=== PATIENT | female | born 1955 | race African-American/Black ===

== ENCOUNTER 2016-08-19 10:13 | Inpatient (IN) | payer MEDICARE, OTHER ==
[~2016-08-19] VITALS: Ht 167.6 cm; Wt 108.4 kg
[2016-08-19 10:33] LABS: BASO # 0.2 x10^3/uL (0.0-0.2); BASO % 1 % (0-3); EOS % 2 % (0-3); HEMATOCRIT 27.5 % (36.0-47.0); HEMOGLOBIN 8.8 g/dL (12.0-15.5); LYMPH # 2.9 x10^3/uL (1.0-4.8); LYMPH % 21 % (24-48); MEAN CORPUSCULAR HEMOGLOBIN 28 pg (25-35); MEAN CORPUSCULAR HGB CONC 32 g/dL (31-37); MEAN CORPUSCULAR VOLUME 86 fL (79-100); MONO % 12 % (0-9); NEUT % 64 % (31-73); PLATELET COUNT 395 x10^3/uL (140-400); RED BLOOD COUNT 3.21 x10^6/uL (3.50-5.40); RED CELL DISTRIBUTION WIDTH 16.2 % (11.5-14.5); WHITE BLOOD COUNT 13.7 x10^3/uL (4.0-11.0)
[2016-08-19 10:43] LABS: CALCIUM 10.7 mg/dL (8.5-10.1); CREATININE 6.2 mg/dL (0.6-1.0); GFR 6.9; POTASSIUM 4.6 mmol/L (3.5-5.1)
[2016-08-19 10:45] LABS: PROTHROMBIN TIME PATIENT 49.4 SEC (11.7-14.0)
[2016-08-19] MEDS ORDERED: ACETAMINOPHEN 650 MG SUPP.RECT. PR ONE (10:45)
--- NOTE | 2016-08-19 10:48 | RAD ---
Portable chest, 08/19/2016: History: Shortness of breath, chest pain No previous chest radiographs are available at this time for comparison purposes. A right jugular dialysis type catheter extends into the superior vena cava. The heart is enlarged. The pulmonary vascularity is at the upper limits of normal. No pulmonary infiltrate is seen. No definite pleural fluid is identified. Moderate spurring is present in the spine. IMPRESSION: Cardiomegaly with borderline vascular congestion.
[2016-08-19 10:51] LABS: ALBUMIN 1.4 g/dL (3.4-5.0); DIRECT BILIRUBIN 0.2 mg/dL (0.0-0.2); MAGNESIUM 2.3 mg/dL (1.8-2.4); TOTAL BILIRUBIN 0.4 mg/dL (0.2-1.0); TOTAL PROTEIN 6.3 g/dL (6.4-8.2)
[2016-08-19] MEDS ORDERED: IV NORMAL SALINE 500ML BAG 500 ML IV ONE ×2 (11:00→15:15)
[2016-08-19] MEDS ORDERED: ACETAMINOPHEN 500 MG TABLET PO ONE (11:00)
[2016-08-19 11:07] LABS: INR 5.8 (0.8-1.1)
--- NOTE | 2016-08-19 11:07 | PHYS DOC ---
Past Medical History Past Medical History: CHF, COPD, Diabetes-Type II, DVT, GERD, Hypertension, Hepatitis, Renal Failure Additional Past Medical Histor: Hep C; Gout; weakness; lack of coordination Past Surgical History: Other Additional Past Surgical Histo: dialysis fistula left upper arm; unknown sx hx Alcohol Use: None Drug Use: None Adult General Chief Complaint Chief Complaint: ALTERED MENTAL STATUS HPI HPI Patient is a 61 year old female who [facility]. She was noted to be alert and oriented 3 and talkative last night prior to bed. She was checked upon at 6 AM today and noted to have altered mental status. She seemed more sleepy than usual and did not take all of her medications correctly. She did not show improvements in the morning, so they had her sent here. She answers minimal questions, but she does deny chest pain, dyspnea, headache, vision changes, numbness, tingling, weakness. Review of Systems Review of Systems Review of systems otherwise limited due to mental status Current Medications Current Medications Current Medications Medications (Trade) Dose Ordered Sig/César Start Time Stop Time Status Last Admin Dose Admin Acetaminophen (Tylenol) 500 mg 1X ONCE 08/19/16 11:00 08/19/16 11:01 DC 08/19/16 11:00 500 MG Acetaminophen 650 mg 650 mg 1X ONCE 08/19/16 10:45 08/19/16 10:58 DC Sodium Chloride (Iv Sodium Chloride 0.9% 500ml Bag) 500 ml @ 500 mls/hr 1X ONCE 08/19/16 11:00 08/19/16 11:59 DC 08/19/16 11:00 500 MLS/HR Allergies Allergies Allergies Coded Allergies Type Severity Reaction Last Updated Verified erythromycin base Allergy Intermediate 08/19/16 Yes gabapentin Allergy Unknown 08/19/16 Yes morphine Allergy Unknown 08/19/16 Yes Physical Exam Physical Exam Constitutional: Well developed, well nourished, no acute distress, non-toxic appearance. [] HENT: Normocephalic, atraumatic, bilateral external ears normal, oropharynx moist, no oral exudates, nose normal. [] Eyes: PERRLA, EOMI, conjunctiva normal, no discharge. [] Neck: Normal range of motion, no tenderness, supple. [] Cardiovascular:Heart rate regular rhythm [] Lungs & Thorax: Bilateral breath sounds clear to auscultation [] Abdomen: Bowel sounds normal, soft, mild general tenderness, no guarding or rebound. [] Skin: Warm, dry, no erythema, no rash. [] Back: No tenderness, no CVA tenderness. [] Extremities: No tenderness, ROM intact, no edema. [] Neurologic: Alert and oriented to self, moves arms and legs minimally but equally, normal sensory function, no focal deficits noted, has mild left facial droop, otherwise cranial nerves II through XII intact. [] Psychologic: Affect withdrawn, judgement impaired by a mental status, mood irritable. [] Current Patient Data Vital Signs Vital Signs Date Time Temp Pulse Resp B/P Pulse Ox O2 Delivery O2 Flow Rate FiO2 08/19/16 13:07 72 18 98/63 96 Nasal Cannula 2 08/19/16 10:20 100.2 100.2 Lab Values Laboratory Tests Test 08/19/16 10:23 08/19/16 11:41 White Blood Count 13.7x10^3/uL (4.0-11.0) H Red Blood Count 3.21x10^6/uL (3.50-5.40) L Hemoglobin 8.8g/dL (12.0-15.5) L Hematocrit 27.5% (36.0-47.0) L Mean Corpuscular Volume 86fL (79-100) Mean Corpuscular Hemoglobin 28pg (25-35) Mean Corpuscular Hemoglobin Concent 32g/dL (31-37) Red Cell Distribution Width 16.2% (11.5-14.5) H Platelet Count 395x10^3/uL (140-400) Neutrophils (%) (Auto) 64% (31-73) Lymphocytes (%) (Auto) 21% (24-48) L Monocytes (%) (Auto) 12% (0-9) H Eosinophils (%) (Auto) 2% (0-3) Basophils (%) (Auto) 1% (0-3) Neutrophils # (Auto) 8.7x10^3uL (1.8-7.7) H Lymphocytes # (Auto) 2.9x10^3/uL (1.0-4.8) Monocytes # (Auto) 1.6x10^3/uL (0.0-1.1) H Eosinophils # (Auto) 0.3x10^3/uL (0.0-0.7) Basophils # (Auto) 0.2x10^3/uL (0.0-0.2) Prothrombin Time 49.4SEC (11.7-14.0) H Prothrombin Time INR 5.8 (0.8-1.1) *H PTT 75SEC (24-38) H Sodium Level 138mmol/L (136-145) Potassium Level 4.6mmol/L (3.5-5.1) Chloride Level 99mmol/L (98-107) Carbon Dioxide Level 33mmol/L (21-32) H Anion Gap 6 (6-14) Blood Urea Nitrogen 32mg/dL (7-20) H Creatinine 6.2mg/dL (0.6-1.0) H Estimated GFR (Cockcroft-Gault) 6.9 Glucose Level 69mg/dL (70-99) L Lactic Acid Level 0.8mmol/L (0.4-2.0) Calcium Level 10.7mg/dL (8.5-10.1) H Magnesium Level 2.3mg/dL (1.8-2.4) Total Bilirubin 0.4mg/dL (0.2-1.0) Direct Bilirubin 0.2mg/dL (0.0-0.2) Aspartate Amino Transferase (AST) 25U/L (15-37) Alanine Aminotransferase (ALT) 12U/L (14-59) L Alkaline Phosphatase 76U/L (46-116) Ammonia 12mcmol/L (11-34) Creatine Kinase 53U/L (26-192) Troponin I Quantitative 0.056ng/mL (0.000-0.055) MG-Jnj-Q-Type Natriuretic Peptide 16455ye/mL (0-124) H Total Protein 6.3g/dL (6.4-8.2) L Albumin 1.4g/dL (3.4-5.0) L Urine Collection Type Unknown Urine Color Yellow Urine Clarity Clear Urine pH 8.0 Urine Specific [place] 1.015 Urine Protein Tracemg/dL (NEG-TRACE) Urine Glucose (UA) Negativemg/dL (NEG) Urine Ketones (Stick) Negativemg/dL (NEG) Urine Blood Negative (NEG) Urine Nitrite Negative (NEG) Urine Bilirubin Negative (NEG) Urine Urobilinogen Dipstick 0.2mg/dL (0.2 mg/dL) Urine Leukocyte Esterase Trace (NEG) Urine RBC 0/HPF (0-2) Urine WBC 1-4/HPF (0-4) Urine Squamous Epithelial Cells Many/LPF Urine Bacteria 0/HPF (0-FEW) Urine Opiates Screen Neg (NEG) Urine Methadone Screen Neg (NEG) Urine Barbiturates Neg (NEG) Urine Phencyclidine Screen Neg (NEG) Urine Amphetamine/Methamphetamine Neg (NEG) Urine Benzodiazepines Screen Neg (NEG) Urine Cocaine Screen Neg (NEG) Urine Cannabinoids Screen Neg (NEG) Urine Ethyl Alcohol Neg (NEG) Laboratory Tests 08/19/16 10:23 Laboratory Tests 08/19/16 10:23 Microbiology EKG EKG EKG as interpreted by me as normal sinus rhythm, rate 75, no ST-T changes, normal intervals, no ectopy Radiology/Procedures Radiology/Procedures Chest xray as interpreted by me with no acute cardiopulmonary disease process Course & Med Decision Making Course & Med Decision Making Pertinent Labs and Imaging studies reviewed. (See chart for details) She has leukocytosis, she was febrile prehospital 101 but temp is <100.4 here. She has small elevation in troponin with elevation and proBNP in the setting of end-stage renal disease on dialysis. Also has metabolic alkalosis. Also has elevated INR on chronic Coumadin therapy. Her workup is otherwise nonacute. She continues to rest in the bed. Will admit for altered mental status. Discussed case with Dr. Johnson, who agrees to admit and agrees to hold off on antibiotics at this time. Cultures are sent. Renal consult placed, cardiology consult placed and called to [facility], and neurology consult placed. Dragon Disclaimer Dragon Disclaimer This electronic medical record was generated, in whole or in part, using a voice recognition dictation system. Departure Departure Impression: Primary Impression: Altered mental status Additional Impressions: Elevated INR (international normalized ratio) due to prior anticoagulant medication ingestion Elevated troponin ESRD on dialysis Disposition: ADMITTED INPATIENT Condition: STABLE Referrals: KAL LINTON (PCP) Problem Qualifiers Primary Impression: Altered mental status Altered mental status type: coma Coma depth: [place] coma 13-15 Coma timing : in the field (EMT or ambulance) Qualified Code: R40.2411 - [place] coma scale score 13-15, in the field [EMT or ambulance] Abhijit REIS MD Aug 19, 2016 11:07
[2016-08-19] MEDS ORDERED: WARF2TAB7 PO (11:12)
[2016-08-19] MEDS ORDERED: GABA-586 PO (11:12)
[2016-08-19] MEDS ORDERED: SERT100T PO (11:12)
[2016-08-19 11:51] LABS: BILIRUBIN,URINE NEGATIVE (NEG); GLUCOSE,URINE NEGATIVE (NEG); NITRITE,URINE NEGATIVE (NEG); UROBILINOGEN,URINE 0.2 mg/dL (0.2 mg/dL)
[2016-08-19] MEDS ORDERED: CIPR250T PO (11:52)
[2016-08-19 11:57] LABS: BACTERIA,URINE 0 /HPF (0-FEW); PROTEIN,URINE TRACE mg/dL (NEG-TRACE); RBC,URINE 0 /HPF (0-2); SQUAMOUS EPITHELIAL CELL,UR MANY /LPF
--- NOTE | 2016-08-19 11:59 | EKG ---
[facility] [address] [place] [address] Test Date: 2016-08-19 Test Time: 10:38:57 Pat Name: RAZ PFEIFFER Department: Room: Gender: F Data Processing Manager: : [id number] Requested By: Abhijit REIS Order Number: [id number] Reading MD: Ignacio Khan Measurements Intervals [place] Rate: 75 P: 1 [place]: 174 QRS: -26 QRSD: 88 T: -1 QT: 390 QTc: 438 Interpretive Statements SINUS RHYTHM LEFTWARD AXIS POOR R-WAVE PROGRESSION Electronically Signed On 08-19-2016 15:19:02 WELDER HELPER by Ignacio Khan
[2016-08-19 12:05] LABS: BARBITURATES NEG (NEG); BENZODIAZEPINES NEG (NEG); CANNABINOIDS NEG (NEG); COCAINE NEG (NEG); ETHANOL, URINE NEG (NEG); METHADONE NEG (NEG); OPIATES NEG (NEG); PHENCYCLIDINE NEG (NEG)
--- NOTE | 2016-08-19 12:16 | RAD ---
CT of the head without contrast, 08/19/2016: History: Altered mental status The ventricles are within normal limits in size. There is no shift of the midline structures. There is no evidence of acute intracranial hemorrhage or mass effect. IMPRESSION: No acute intracranial abnormality is detected.
--- NOTE | 2016-08-19 13:01 | RAD ---
Exam performed: CT scan of the abdomen and pelvis without contrast. Clinical Indication: Generalized abdominal pain Date of Service: 08/09/16 none available Technique: Contiguous helical acquisitions are obtained through the abdomen and pelvis without IV contrast. Sagittal and coronal reformatted images are obtained and reviewed. CT abdomen and pelvis findings: The lung bases are essentially clear. Cardiomegaly. Lack of IV contrast limits evaluation of abdominal viscera, however the liver, spleen and pancreas are normal. Both adrenal glands and bilateral kidneys are normal in size without hydronephrosis or nephrolithiasis. Aorta is normal in caliber without aneurysm. The small and large bowel loops are nondilated and unremarkable. Scattered stool throughout the colon. Appendix is not clearly visualized, no secondary signs of acute appendicitis noted. There are postoperative changes of hernia repair with hernia repair mesh in the left mid and lower abdomen Distal ureters are nondilated. Urinary bladder is decompressed and thick walled. [Uterus is likely surgically absent. No adnexal masses seen.] No free or focal fluid collections are identified. Diffuse spondylotic changes and multilevel disc degenerative changes are noted. Impression: No acute intra-abdominal or pelvic process detected. PQRS Compliance Statement: One or more of the following individualized dose reduction techniques were utilized for this examination: 1. Automated exposure control 2. Adjustment of the mA and/or kV according to patient size 3. Use of iterative reconstruction technique
[2016-08-19] MEDS ORDERED: IPRA0.2S5 NEB (13:37)
[2016-08-19] MEDS ORDERED: LIDO700A4 TP (13:37)
[2016-08-19] MEDS ORDERED: NORT25CA PO (13:37)
[2016-08-19] MEDS ORDERED: FLUT1DIS3 IH (13:37)
[2016-08-19] MEDS ORDERED: OXYC-250 PO (13:38)
[2016-08-19] MEDS ORDERED: CHOL10003 PO (13:38)
[2016-08-19] MEDS ORDERED: OXYC10TA32 PO (13:39)
[2016-08-19] MEDS ORDERED: POLY119P19 PO (13:39)
[2016-08-19] MEDS ORDERED: SENN8.6T99 PO (13:40)
[2016-08-19] MEDS ORDERED: VENTOLIN HFA18 GM INH (13:40)
[2016-08-19] MEDS ORDERED: VIT1TABL70 PO (13:40)
[2016-08-19] MEDS ORDERED: ALLO100T PO (13:40)
[2016-08-19] MEDS ORDERED: CARV25TA PO (13:41)
[2016-08-19] MEDS ORDERED: ASPI81TA2 PO (13:41)
[2016-08-19] MEDS ORDERED: PhosLo (13:43)
[2016-08-19] MEDS ORDERED: CYCL10TA2 PO (13:44)
[2016-08-19] MEDS ORDERED: BISA10SU55 RC (13:44)
[2016-08-19] MEDS ORDERED: NITR0.4T SL (13:44)
[2016-08-19] MEDS ORDERED: NA P133E2 RC (13:44)
[2016-08-19] MEDS ORDERED: ONDA8TAB12 PO (13:44)
[2016-08-19] MEDS ORDERED: ELBA1TAB PO (13:44)
[2016-08-19] MEDS ORDERED: Mylanta (13:46)
[2016-08-19] MEDS ORDERED: ACET325T9 PO (13:46)
[2016-08-19] MEDS ORDERED: ONDANSETRON PF 4 MG/2 ML VIAL. IV PRN (14:30)
[2016-08-19] MEDS ORDERED: FENTANYL PF 100 MCG/2 ML VIAL. IV PRN (14:30)
[2016-08-19] MEDS ORDERED: ACETAMINOPHEN 325 MG TABLET. PO PRN (14:30)
--- NOTE | 2016-08-19 14:43 | ACF ---
Admission Forms Criteria MENTAL STATUS CHANGE Clinical Indications for Inpatient Care (Place 'X' for any and all applicable criteria): Ongoing inpatient care may be needed for ANY ONE of the following(1)(2)(3)(5)(6) : [X]I. Suspected serious etiology (eg, medical disorder, GREEN MARKETING ANALYST event) of mental status change [ ]II. Danger to self or others not manageable at lower level of care [ ]III. Grave disability (eg, inability to perform self care necessary at lower level of care) [ ]IV. Agitation or inappropriate behavior interfering with care for primary condition (eg, attempting to discontinue lines or drains prematurely, unable to cooperate with respiratory care) [ ]V. Delirium [A] [D][E] as described by ANY ONE of the following(26): [ ]a) Delirium due to alcohol or sedative [F] withdrawal [ ]b) Delirium of uncertain etiology that has not responded to appropriate empiric treatment [ ]c) Delirium that prevents performance of a life-sustaining function (eg, feeding or hydrating oneself) [ ]. General contraindications and/or Inappropriate clinical situations for Observational Care in patients with Mental Status Change, when ANY ONE of the following is required: [ ]a) Prediction of prolongation of LOS based on ANY ONE of the following may be considered as a contraindication for observational care 2, 3, 4, 5, 6, 7, 8, 9, 10, 11 [ ]i) Age > 65 yrs. [ ]ii) Patient arriving by ambulance [ ]iii) Patient with high acuity [ ]iv) Patient requiring vital sign monitoring [ ]v) Patient on IV medication [ ]b) Systolic blood pressures 180mmHg 3,12 [ ]c) Patient with altered mental status including delirium and other alteration of consciousness, (3) [ ]d) Patient whose discharge disposition will be to a [facility] home or rehabilitation home should not be managed in Emergency Department Observation Unit. CMS rule requires 3 days hospital stay before such placement.3,13 [ ]e) Patient with failure to thrive due to broad array of etiologies 3,16,17 [ ]f) Inability to ambulate 3,14 Extended stay beyond goal length of stay for the primary condition may be needed until ALL of the following are present(3)(5): [ ]a) Underlying medical etiology of mental status change is absent, or has been established and adequately treated [ ]b) Danger to self or others is absent or manageable at lower level of care. [ ]c) Behavior crisis management, including physical or chemical restraints, is not required or available at lower level of car [ ]d) Substance or alcohol withdrawal is absent or manageable at lower level of care. [ ]e) Behavioral symptoms (eg, agitation, somnolence, inappropriate behavior) are absent, or are manageable at lower level of care. The original [facility] content created by [facility] has been revised. The portions of the content which have been revised are identified through the use of italic text or in bold, and [facility] has neither reviewed nor approved the modified material. All other unmodified content is copyright [facility]. Please see references footnoted in the original [facility] edition 2016 Admission Criteria Met?: Yes ZEUS NAZARIO Aug 19, 2016 14:43
[2016-08-19 15:00] VITALS: BP 104/60
--- NOTE | 2016-08-19 15:28 | PDOC2 ---
SRINIVASANERICH POLLARD MACHINE PULLER 08/19/16 1528: CARDIAC CONSULT DATE OF CONSULT Date of Consult DATE: 08/19/16 TIME: 15:20 REASON FOR CONSULT Reason for Consult: altered mental status, elevated troponin REFERRING PHYSICIAN Referring Physician: Dr. Jesus Manuel Colindres SOURCE Source: Chart review HISTORY OF PRESENT ILLNESS HISTORY OF PRESENT ILLNESS 61 year old female reportedly transferred from [facility] due to change in mental status. Patient currently can be aroused only by sternal rub, then grunts, opens eyes briefly and again becomes difficult to arouse. No verbal response to questions. No transfer paperwork for review. ER note (which has not yet been completed) reviewed. No acute changes in EKG and initial troponin was 0.05 in the setting of ESRD with a Cr of 6.2. Hypotensive on presentation and dropped to SBP 78. Reason for Visit: elevated troponin PAST MEDICAL HISTORY Cardiovascular: CHF, HTN GI: GERD Heme/Onc: Other (DVT) Hepatobiliary: Hep A/B/C (hep C) Renal/: Chronic renal failure (with HD) Endocrine: Diabetes PAST SURGICAL HISTORY Past Surgical History: Other (AV fistula) FAMILY HISTORY Family History unknown SOCIAL HISTORY Social History unknown Lives: Shelter CURRENT MEDICATIONS CURRENT MEDICATIONS Current Medications Medications (Trade) Dose Ordered Sig/César Route PRN Reason Start Time Stop Time Status Last Admin Dose Admin Sodium Chloride (Iv Sodium Chloride 0.9% 500ml Bag) 500 ml @ 500 mls/hr 1X ONCE IV 08/19/16 11:00 08/19/16 11:59 DC 08/19/16 11:00 Acetaminophen 500 mg 500 mg 1X ONCE PO 08/19/16 11:00 08/19/16 11:01 DC 08/19/16 11:00 Sodium Chloride (Iv Sodium Chloride 0.9% 500ml Bag) 500 ml @ 500 mls/hr 1X ONCE IV 08/19/16 15:15 08/19/16 16:14 08/19/16 11:30 ALLERGIES ALLERGIES: Coded Allergies: erythromycin base (Verified Allergy, Intermediate, 08/19/16) gabapentin (Verified Allergy, Unknown, 08/19/16) morphine (Verified Allergy, Unknown, 08/19/16) ROS Review of System unable to obtain PHYSICAL EXAM General: No acute distress, Other (responsive to sternal rub only) HEENT: Atraumatic Lungs: Clear to auscultation Heart: Normal S1, Normal S2, Other (? S3) Abdomen: Normal bowel sounds, Soft, No tenderness, Other (obese abdomen) Extremities: No edema, Normal pulses Skin: No rashes Neuro: Other (grunting only; did not speak) Psych/Mental Status: Other (poorly responsive) MUSCULOSKELETAL: Osteoarthritic changes both hands VITALS VITALS Vital Signs Date Time Temp Pulse Resp B/P Pulse Ox O2 Delivery O2 Flow Rate FiO2 08/19/16 13:07 72 18 98/63 96 Nasal Cannula 2 08/19/16 10:20 100.2 100.2 LABS Lab: Laboratory Tests Test 08/19/16 10:23 08/19/16 11:41 White Blood Count 13.7x10^3/uL (4.0-11.0) Red Blood Count 3.21x10^6/uL (3.50-5.40) Hemoglobin 8.8g/dL (12.0-15.5) Hematocrit 27.5% (36.0-47.0) Mean Corpuscular Volume 86fL (79-100) Mean Corpuscular Hemoglobin 28pg (25-35) Mean Corpuscular Hemoglobin Concent 32g/dL (31-37) Red Cell Distribution Width 16.2% (11.5-14.5) Platelet Count 395x10^3/uL (140-400) Neutrophils (%) (Auto) 64% (31-73) Lymphocytes (%) (Auto) 21% (24-48) Monocytes (%) (Auto) 12% (0-9) Eosinophils (%) (Auto) 2% (0-3) Basophils (%) (Auto) 1% (0-3) Neutrophils # (Auto) 8.7x10^3uL (1.8-7.7) Lymphocytes # (Auto) 2.9x10^3/uL (1.0-4.8) Monocytes # (Auto) 1.6x10^3/uL (0.0-1.1) Eosinophils # (Auto) 0.3x10^3/uL (0.0-0.7) Basophils # (Auto) 0.2x10^3/uL (0.0-0.2) Prothrombin Time 49.4SEC (11.7-14.0) Prothromb Time International Ratio 5.8 (0.8-1.1) Activated Partial Thromboplast Time 75SEC (24-38) Sodium Level 138mmol/L (136-145) Potassium Level 4.6mmol/L (3.5-5.1) Chloride Level 99mmol/L (98-107) Carbon Dioxide Level 33mmol/L (21-32) Anion Gap 6 (6-14) Blood Urea Nitrogen 32mg/dL (7-20) Creatinine 6.2mg/dL (0.6-1.0) Estimated GFR (Cockcroft-Gault) 6.9 Glucose Level 69mg/dL (70-99) Lactic Acid Level 0.8mmol/L (0.4-2.0) Calcium Level 10.7mg/dL (8.5-10.1) Magnesium Level 2.3mg/dL (1.8-2.4) Total Bilirubin 0.4mg/dL (0.2-1.0) Direct Bilirubin 0.2mg/dL (0.0-0.2) Aspartate Amino Transf (AST/SGOT) 25U/L (15-37) Alanine Aminotransferase (ALT/SGPT) 12U/L (14-59) Alkaline Phosphatase 76U/L (46-116) Ammonia 12mcmol/L (11-34) Creatine Kinase 53U/L (26-192) Troponin I Quantitative 0.056ng/mL (0.000-0.055) GS-Bad-W-Type Natriuretic Peptide 06844ux/mL (0-124) Total Protein 6.3g/dL (6.4-8.2) Albumin 1.4g/dL (3.4-5.0) Urine Collection Type Unknown Urine Color Yellow Urine Clarity Clear Urine pH 8.0 Urine Specific [place] 1.015 Urine Protein Tracemg/dL (NEG-TRACE) Urine Glucose (UA) Negativemg/dL (NEG) Urine Ketones (Stick) Negativemg/dL (NEG) Urine Blood Negative (NEG) Urine Nitrite Negative (NEG) Urine Bilirubin Negative (NEG) Urine Urobilinogen Dipstick 0.2mg/dL (0.2 mg/dL) Urine Leukocyte Esterase Trace (NEG) Urine RBC 0/HPF (0-2) Urine WBC 1-4/HPF (0-4) Urine Squamous Epithelial Cells Many/LPF Urine Bacteria 0/HPF (0-FEW) Urine Opiates Screen Neg (NEG) Urine Methadone Screen Neg (NEG) Urine Barbiturates Neg (NEG) Urine Phencyclidine Screen Neg (NEG) Urine Amphetamine/Methamphetamine Neg (NEG) Urine Benzodiazepines Screen Neg (NEG) Urine Cocaine Screen Neg (NEG) Urine Cannabinoids Screen Neg (NEG) Urine Ethyl Alcohol Neg (NEG) IMAGES IMAGES CXR: No previous chest radiographs are available at this time for comparison purposes. A right jugular dialysis type catheter extends into the superior vena cava. The heart is enlarged. The pulmonary vascularity is at the upper limits of normal. No pulmonary infiltrate is seen. No definite pleural fluid is identified. Moderate spurring is present in the spine. IMPRESSION: Cardiomegaly with borderline vascular congestion. EKG EKG SR without acute changes ASSESSMENT/PLAN ASSESSMENT/PLAN 1. elevated troponin level trivial elevation in the setting of ESRD with Cr of 6.2 continue serial markers echo to evaluate LV function and assess for WMA 2. elevated NT-proBNP in the setting of ESRD with Cr of 6.2 CXR without CHF fluid management per HD/nephrology 3. altered mental status tox screen clean CT head without significant findings 4. ESRD with HD 5. DM, II per primary service 6. supratherapeutic INR of 5.8 ? on warfarin for DVT 7. hepatitis C Nursing to try to obtain further records from [facility] and/or previous facility. Problems: SUBHA GARCIA MD 08/19/16 1703: CARDIAC CONSULT ALLERGIES ALLERGIES: Coded Allergies: erythromycin base (Verified Allergy, Intermediate, 08/19/16) gabapentin (Verified Allergy, Unknown, 08/19/16) morphine (Verified Allergy, Unknown, 08/19/16) ASSESSMENT/PLAN ASSESSMENT/PLAN Patient seen and examined. Agree with above nurse practitioner note. 61-year-old woman presented with mental status changes of unclear etiology. No specific cardiac abdomen amount is noted on examination. Medications reviewed. Labs reviewed. No obvious cardiac pathology noted for her acute mental status change. Continue supportive care. We will obtain an echocardiogram and determine any further assessment as necessary. Problems: ERICH OKEEFE APRN Aug 19, 2016 15:28 SUBHA GARCIA MD Aug 19, 2016 17:03
--- NOTE | 2016-08-19 15:41 | PDOC2 ---
DATE OF CONSULT Date of Consult 08/19/2016 REASON FOR CONSULT Reason for Consult Dialsysis REFERRING PHYSICIAN Referring Provider Dr monet CHIEF COMPLAINT Chief Complaint Problems Medical Problems: (1) Altered mental status Status: Acute (2) Elevated INR (international normalized ratio) due to prior anticoagulant medication ingestion Status: Acute (3) Elevated troponin Status: Acute (4) ESRD on dialysis Status: Acute (5) Mental status change Status: Acute SOURCE Source chart HPI HPI as dictated CURRENT MEDICATIONS Current Meds Current Medications Medications (Trade) Dose Ordered Sig/César Route PRN Reason Start Time Stop Time Status Last Admin Dose Admin Sodium Chloride (Iv Sodium Chloride 0.9% 500ml Bag) 500 ml @ 500 mls/hr 1X ONCE IV 08/19/16 11:00 08/19/16 11:59 DC 08/19/16 11:00 Acetaminophen 500 mg 500 mg 1X ONCE PO 08/19/16 11:00 08/19/16 11:01 DC 08/19/16 11:00 Sodium Chloride (Iv Sodium Chloride 0.9% 500ml Bag) 500 ml @ 500 mls/hr 1X ONCE IV 08/19/16 15:15 08/19/16 16:14 08/19/16 11:30 Home Meds reviewed as documented ALLERGIES Allergies: Coded Allergies: erythromycin base (Verified Allergy, Intermediate, 08/19/16) gabapentin (Verified Allergy, Unknown, 08/19/16) morphine (Verified Allergy, Unknown, 08/19/16) ROS ROS unable to arouse adequately to get ROS VITAL SIGNS Vital Signs VS - Last 72 Hours, by Label Date Time Temp Pulse Resp B/P Pulse Ox O2 Delivery O2 Flow Rate FiO2 08/19/16 13:07 72 18 98/63 96 Nasal Cannula 2 08/19/16 12:37 70 18 94/67 96 08/19/16 12:07 70 20 108/69 96 08/19/16 11:37 72 16 94/59 95 08/19/16 11:29 72 16 85/62 95 08/19/16 11:13 71 18 78/56 96 Nasal Cannula 2 08/19/16 11:02 74 20 100/58 95 08/19/16 10:52 74 24 82/49 96 08/19/16 10:37 74 20 84/56 94 Nasal Cannula 2 08/19/16 10:20 100.2 77 18 89/59 91 Room Air 100.2 PHYSICAL EXAM Physical Exam General Appearance: barely Awake not Alert Oriented x 0; lethargic In no Distress Eyes: VIsion Unchanged Conjunctiva Normal EN: No EN Drainage Mucous Memb. dryish Neck: no JVD no JVP Supple no Thyromegaly; short thick neck CVS: S1 S2 soft Murmur No Gallop No Rub no Edema Resp: no Rales no Rhonchi no Acc. Muscle use GI: BAS +ve NO Bruit Non Tender Non Distended : no CVA tenderness; no Suprapubic Tenderness SKIN: no Rashes Breast Exam deferred Mu.Sk: Adequate ROM no Muscle Atrophy Heme: Unable to palpate Obvious LAD no palp Splenomegaly NEURO: no Asterixis; Unable to follow commands Psych: ? Depressed no Active hallucination ASSESSMENT/PLAN Assessment/Plan ESRD.HD later today; will reval on HD Fevers - Bl Cx done, One set from HD Cath Anemia: Epogen Transfuse with next HD as needed. Hypo TN: suspect sepsis asso with HD Cath unless other sources can be identified Sev. Hypoalbuminemia - check for Proteinruia AMS - Doubt Uremic, check FSBS, Neuro consulted, ? opoid related, ? due to ^ David Relative Hypercalcemia - Miacalcin as ordered Discussed Plan of Care at length with cardiology WORKERS' COMPENSATION MAGISTRATE LABS Labs: Laboratory Tests Test 08/19/16 10:23 08/19/16 11:41 White Blood Count 13.7x10^3/uL (4.0-11.0) Red Blood Count 3.21x10^6/uL (3.50-5.40) Hemoglobin 8.8g/dL (12.0-15.5) Hematocrit 27.5% (36.0-47.0) Mean Corpuscular Volume 86fL (79-100) Mean Corpuscular Hemoglobin 28pg (25-35) Mean Corpuscular Hemoglobin Concent 32g/dL (31-37) Red Cell Distribution Width 16.2% (11.5-14.5) Platelet Count 395x10^3/uL (140-400) Neutrophils (%) (Auto) 64% (31-73) Lymphocytes (%) (Auto) 21% (24-48) Monocytes (%) (Auto) 12% (0-9) Eosinophils (%) (Auto) 2% (0-3) Basophils (%) (Auto) 1% (0-3) Neutrophils # (Auto) 8.7x10^3uL (1.8-7.7) Lymphocytes # (Auto) 2.9x10^3/uL (1.0-4.8) Monocytes # (Auto) 1.6x10^3/uL (0.0-1.1) Eosinophils # (Auto) 0.3x10^3/uL (0.0-0.7) Basophils # (Auto) 0.2x10^3/uL (0.0-0.2) Prothrombin Time 49.4SEC (11.7-14.0) Prothromb Time International Ratio 5.8 (0.8-1.1) Activated Partial Thromboplast Time 75SEC (24-38) Sodium Level 138mmol/L (136-145) Chloride Level 99mmol/L (98-107) Carbon Dioxide Level 33mmol/L (21-32) Anion Gap 6 (6-14) Blood Urea Nitrogen 32mg/dL (7-20) Estimated GFR (Cockcroft-Gault) 6.9 Glucose Level 69mg/dL (70-99) Lactic Acid Level 0.8mmol/L (0.4-2.0) Calcium Level 10.7mg/dL (8.5-10.1) Total Bilirubin 0.4mg/dL (0.2-1.0) Direct Bilirubin 0.2mg/dL (0.0-0.2) Aspartate Amino Transf (AST/SGOT) 25U/L (15-37) Alkaline Phosphatase 76U/L (46-116) Ammonia 12mcmol/L (11-34) Creatine Kinase 53U/L (26-192) Troponin I Quantitative 0.056ng/mL (0.000-0.055) Total Protein 6.3g/dL (6.4-8.2) Albumin 1.4g/dL (3.4-5.0) Urine Collection Type Unknown Urine Color Yellow Urine Clarity Clear Urine pH 8.0 Urine Specific [place] 1.015 Urine Protein Tracemg/dL (NEG-TRACE) Urine Glucose (UA) Negativemg/dL (NEG) Urine Ketones (Stick) Negativemg/dL (NEG) Urine Blood Negative (NEG) Urine Nitrite Negative (NEG) Urine Bilirubin Negative (NEG) Urine Urobilinogen Dipstick 0.2mg/dL (0.2 mg/dL) Urine Leukocyte Esterase Trace (NEG) Urine RBC 0/HPF (0-2) Urine WBC 1-4/HPF (0-4) Urine Squamous Epithelial Cells Many/LPF Urine Bacteria 0/HPF (0-FEW) Urine Opiates Screen Neg (NEG) Urine Methadone Screen Neg (NEG) Urine Barbiturates Neg (NEG) Urine Phencyclidine Screen Neg (NEG) Urine Amphetamine/Methamphetamine Neg (NEG) Urine Benzodiazepines Screen Neg (NEG) Urine Cocaine Screen Neg (NEG) Urine Cannabinoids Screen Neg (NEG) Urine Ethyl Alcohol Neg (NEG) HERMELINDA MCINTYRE MD Aug 19, 2016 15:41
[2016-08-19] MEDS ORDERED: MAGNESIUM SULFATE 2GM 50 ML IV PRN (15:45)
--- NOTE | 2016-08-19 15:55 | PDOC ---
Dialysis Progress Note Dialysis Note Dialysis Note Seen on Hemodialysis, tolerating treatment OK so far Vitals at beginning of Hemodialysis: 93/559 69 - getting 500cc NS BOlus General Appearance: Not Awake: not Alert Oriented x 0 Neck: No JVD or JVP Chest: CTA Donny Heart: S1 S2 Abdomen - Soft NTND Extremities - No Edema ESRD: Dialysis as below F 180 NR 3.0 Hrs 3 K 2.5 Ca 140 Na 35 HC03 Qb 350 + Qd 500+ Heparin 0 Units Uf 0 Kgs or to dry weight as tolerated (May leave 1Kg +ve on Fluids and 50gms of ALbumin) May give 25-50 gms of 25% Albumin if needed to maintain Hemodynamic stability Treatment plan reviewed and discussed with doll wigs hackler Vitals Vital Signs Vital Signs Date Time Temp Pulse Resp B/P Pulse Ox O2 Delivery O2 Flow Rate FiO2 08/19/16 13:07 72 18 98/63 96 Nasal Cannula 2 08/19/16 10:20 100.2 100.2 Labs Last Labs Laboratory Tests Test 08/19/16 10:23 08/19/16 11:41 08/19/16 15:41 White Blood Count 13.7x10^3/uL (4.0-11.0) Red Blood Count 3.21x10^6/uL (3.50-5.40) Hemoglobin 8.8g/dL (12.0-15.5) Hematocrit 27.5% (36.0-47.0) Mean Corpuscular Volume 86fL (79-100) Mean Corpuscular Hemoglobin 28pg (25-35) Mean Corpuscular Hemoglobin Concent 32g/dL (31-37) Red Cell Distribution Width 16.2% (11.5-14.5) Platelet Count 395x10^3/uL (140-400) Neutrophils (%) (Auto) 64% (31-73) Lymphocytes (%) (Auto) 21% (24-48) Monocytes (%) (Auto) 12% (0-9) Eosinophils (%) (Auto) 2% (0-3) Basophils (%) (Auto) 1% (0-3) Neutrophils # (Auto) 8.7x10^3uL (1.8-7.7) Lymphocytes # (Auto) 2.9x10^3/uL (1.0-4.8) Monocytes # (Auto) 1.6x10^3/uL (0.0-1.1) Eosinophils # (Auto) 0.3x10^3/uL (0.0-0.7) Basophils # (Auto) 0.2x10^3/uL (0.0-0.2) Prothrombin Time 49.4SEC (11.7-14.0) Prothromb Time International Ratio 5.8 (0.8-1.1) Activated Partial Thromboplast Time 75SEC (24-38) Sodium Level 138mmol/L (136-145) Potassium Level 4.6mmol/L (3.5-5.1) Chloride Level 99mmol/L (98-107) Carbon Dioxide Level 33mmol/L (21-32) Anion Gap 6 (6-14) Blood Urea Nitrogen 32mg/dL (7-20) Creatinine 6.2mg/dL (0.6-1.0) Estimated GFR (Cockcroft-Gault) 6.9 Glucose Level 69mg/dL (70-99) Lactic Acid Level 0.8mmol/L (0.4-2.0) Calcium Level 10.7mg/dL (8.5-10.1) Magnesium Level 2.3mg/dL (1.8-2.4) Total Bilirubin 0.4mg/dL (0.2-1.0) Direct Bilirubin 0.2mg/dL (0.0-0.2) Aspartate Amino Transf (AST/SGOT) 25U/L (15-37) Alanine Aminotransferase (ALT/SGPT) 12U/L (14-59) Alkaline Phosphatase 76U/L (46-116) Ammonia 12mcmol/L (11-34) Creatine Kinase 53U/L (26-192) Troponin I Quantitative 0.056ng/mL (0.000-0.055) VE-Six-G-Type Natriuretic Peptide 94096ys/mL (0-124) Total Protein 6.3g/dL (6.4-8.2) Albumin 1.4g/dL (3.4-5.0) Urine Collection Type Unknown Urine Color Yellow Urine Clarity Clear Urine pH 8.0 Urine Specific [place] 1.015 Urine Protein Tracemg/dL (NEG-TRACE) Urine Glucose (UA) Negativemg/dL (NEG) Urine Ketones (Stick) Negativemg/dL (NEG) Urine Blood Negative (NEG) Urine Nitrite Negative (NEG) Urine Bilirubin Negative (NEG) Urine Urobilinogen Dipstick 0.2mg/dL (0.2 mg/dL) Urine Leukocyte Esterase Trace (NEG) Urine RBC 0/HPF (0-2) Urine WBC 1-4/HPF (0-4) Urine Squamous Epithelial Cells Many/LPF Urine Bacteria 0/HPF (0-FEW) Urine Opiates Screen Neg (NEG) Urine Methadone Screen Neg (NEG) Urine Barbiturates Neg (NEG) Urine Phencyclidine Screen Neg (NEG) Urine Amphetamine/Methamphetamine Neg (NEG) Urine Benzodiazepines Screen Neg (NEG) Urine Cocaine Screen Neg (NEG) Urine Cannabinoids Screen Neg (NEG) Urine Ethyl Alcohol Neg (NEG) Glucose (Fingerstick) 71mg/dL (70-99) Laboratory Tests Test 08/19/16 10:23 08/19/16 11:41 08/19/16 15:41 White Blood Count 13.7x10^3/uL (4.0-11.0) Red Blood Count 3.21x10^6/uL (3.50-5.40) Hemoglobin 8.8g/dL (12.0-15.5) Hematocrit 27.5% (36.0-47.0) Mean Corpuscular Volume 86fL (79-100) Mean Corpuscular Hemoglobin 28pg (25-35) Mean Corpuscular Hemoglobin Concent 32g/dL (31-37) Red Cell Distribution Width 16.2% (11.5-14.5) Platelet Count 395x10^3/uL (140-400) Neutrophils (%) (Auto) 64% (31-73) Lymphocytes (%) (Auto) 21% (24-48) Monocytes (%) (Auto) 12% (0-9) Eosinophils (%) (Auto) 2% (0-3) Basophils (%) (Auto) 1% (0-3) Neutrophils # (Auto) 8.7x10^3uL (1.8-7.7) Lymphocytes # (Auto) 2.9x10^3/uL (1.0-4.8) Monocytes # (Auto) 1.6x10^3/uL (0.0-1.1) Eosinophils # (Auto) 0.3x10^3/uL (0.0-0.7) Basophils # (Auto) 0.2x10^3/uL (0.0-0.2) Prothrombin Time 49.4SEC (11.7-14.0) Prothromb Time International Ratio 5.8 (0.8-1.1) Activated Partial Thromboplast Time 75SEC (24-38) Sodium Level 138mmol/L (136-145) Potassium Level 4.6mmol/L (3.5-5.1) Chloride Level 99mmol/L (98-107) Carbon Dioxide Level 33mmol/L (21-32) Anion Gap 6 (6-14) Blood Urea Nitrogen 32mg/dL (7-20) Creatinine 6.2mg/dL (0.6-1.0) Estimated GFR (Cockcroft-Gault) 6.9 Glucose Level 69mg/dL (70-99) Lactic Acid Level 0.8mmol/L (0.4-2.0) Calcium Level 10.7mg/dL (8.5-10.1) Magnesium Level 2.3mg/dL (1.8-2.4) Total Bilirubin 0.4mg/dL (0.2-1.0) Direct Bilirubin 0.2mg/dL (0.0-0.2) Aspartate Amino Transf (AST/SGOT) 25U/L (15-37) Alanine Aminotransferase (ALT/SGPT) 12U/L (14-59) Alkaline Phosphatase 76U/L (46-116) Ammonia 12mcmol/L (11-34) Creatine Kinase 53U/L (26-192) Troponin I Quantitative 0.056ng/mL (0.000-0.055) ZV-Hzm-L-Type Natriuretic Peptide 62664me/mL (0-124) Total Protein 6.3g/dL (6.4-8.2) Albumin 1.4g/dL (3.4-5.0) Urine Collection Type Unknown Urine Color Yellow Urine Clarity Clear Urine pH 8.0 Urine Specific [place] 1.015 Urine Protein Tracemg/dL (NEG-TRACE) Urine Glucose (UA) Negativemg/dL (NEG) Urine Ketones (Stick) Negativemg/dL (NEG) Urine Blood Negative (NEG) Urine Nitrite Negative (NEG) Urine Bilirubin Negative (NEG) Urine Urobilinogen Dipstick 0.2mg/dL (0.2 mg/dL) Urine Leukocyte Esterase Trace (NEG) Urine RBC 0/HPF (0-2) Urine WBC 1-4/HPF (0-4) Urine Squamous Epithelial Cells Many/LPF Urine Bacteria 0/HPF (0-FEW) Urine Opiates Screen Neg (NEG) Urine Methadone Screen Neg (NEG) Urine Barbiturates Neg (NEG) Urine Phencyclidine Screen Neg (NEG) Urine Amphetamine/Methamphetamine Neg (NEG) Urine Benzodiazepines Screen Neg (NEG) Urine Cocaine Screen Neg (NEG) Urine Cannabinoids Screen Neg (NEG) Urine Ethyl Alcohol Neg (NEG) Glucose (Fingerstick) 71mg/dL (70-99) Assessment Assessment Problems Medical Problems: (1) Altered mental status Status: Acute (2) Elevated INR (international normalized ratio) due to prior anticoagulant medication ingestion Status: Acute (3) Elevated troponin Status: Acute (4) ESRD on dialysis Status: Acute (5) Mental status change Status: Acute Problems: Plan Plan of Care Problems Medical Problems: (1) Altered mental status Status: Acute (2) Elevated INR (international normalized ratio) due to prior anticoagulant medication ingestion Status: Acute (3) Elevated troponin Status: Acute (4) ESRD on dialysis Status: Acute (5) Mental status change Status: Acute HERMELINDA MCINTYRE MD Aug 19, 2016 15:55
[2016-08-19] MEDS ORDERED: IV NORMAL SALINE 1000ML BAG 1,000 ML IV PRN ×2 (16:29)
[2016-08-19] MEDS ORDERED: VANCOMYCIN 2 GM in IV NORMAL SALINE 500ML BAG 500 ML IV ONE (16:30)
[2016-08-19] MEDS ORDERED: DIALYSIS PATIENT. MC PRN ×2 (16:30)
[2016-08-19] MEDS: ALBUMIN HUMAN 25% 100 ML IV PRN ×2 (16:52→17:26)
--- NOTE | 2016-08-19 18:26 | PDOC2 ---
NEUROLOGY CONSULT Date of Admission Date of Admission DATE: 08/19/16 TIME: 18:17 Reason for Consult Reason for Consult: IMPRESSION: MS changes. Metabolic encephalopathy. ESRD on dialysis. DM HTN CHF Cardiomegaly COPD GERD HCV Gout Morbid obesity. RECOMMENDATIONS/PLAN: EEG Repeat HCT on 08/20 Lab: see orders. Treat medical diseases. OT/PT. HISTORY OF THE PRESENT ILLNESS: 61-y-old AA female with above medical diseases has been having MS changes, lethargy, decreased response for admission. No focalized sensory or motor deficits noted. PAST MEDICAL HISTORY: Please see above. PAST SURGERY HISTORY: No major surgery recently. ALLERGY: Erythromycin Neurontin Morphine MEDICATIONS: Refer to [facility] FAMILY HISTORY: Non contributory. SOCIAL HISTORY: Lives in nursing facility. Denies smoking, drinking, and illicit drug use. REVIEW OF SYSTEMS: Constitutional: No malnutrition, weight loss, cachexia. Head: No traumatic brain or head injury. Skin: No edema, or rash. Ear: No infection, tinnitus. Eyes: No vision loss or color blindness. Nose: No bleeding or purulent discharges. Hearing: Mild hearing decrease. Neck: No injury. Breast: No history of cancer, masses,or discharges. Cardiac: CAD, HTN, HLD. Pulmonary: COPD. GI: GERD. Urinary/genital: ESRD on dialysis. Endocrinologic: Diabetes Mellitus, morbid obesity. Skeletomuscular: Generalized weakness. Neurological: see HP. Psychiatric: Denies drug use/abuse. Otherwise, not [id number] review of systems. PHYSICAL EXAMINATION: General appearance is in subacute distress. HEENT: Normocephalic and nontraumatic. Eyes, nose, ears, and throat are unremarkable. Neck is supple. No lymphadenopathy. No crepitus. Cardiovascular: S1, S2, regular rate and rhythm. Pulmonary: Clear to auscultation bilaterally. Abdomen: Bowel sounds are positive. Extremities: No rash, lesions, or edema. No restriction of range of motion NEUROLOGICAL EXAMINATION: Sleepiness but arousable. Not fully oriented to time, place and person. PERRL. EOMI. CN: no focal findings. Muscle tone: within normal. Muscle strength: 4 UE, 4- LE DTR: 1 Plantar reflex: Flexor response bilaterally Gait: not examined in bed. Sensory exam: no abnormal findings. No obvious cerebellar signs elicited. F-T-N test fine. Current Medications Current Medications Current Medications Acetaminophen 650 mg 650 mg 1X ONCE TX ; Start 08/19/16 at 10:45; Stop at 10:58; Status DC Sodium Chloride (Iv Sodium Chloride 0.9% 500ml Bag) 500 ml @ 500 mls/hr 1X ONCE IV Last administered on 08/19/16 11:00; Start 08/19/16 at 11:00; Stop at 11:59; Status DC Acetaminophen (Tylenol) 500 mg 1X ONCE PO Last administered on 08/19/16 11:00 ; Start 08/19/16 at 11:00; Stop 08/19/16 at 11:01; Status DC Ondansetron HCl (Zofran) 4 mg PRN Q8HRS PRN IV NAUSEA/VOMITING; Start 08/19/16 at 14:30; Stop 08/20/16 at 14:29 Fentanyl Citrate (Fentanyl 2ml Vial) 50 mcg PRN Q2HR PRN IV PAIN; Start at 14:30; Stop 08/20/16 at 14:29 Acetaminophen 650 mg 650 mg PRN Q4HRS PRN PO FEVER; Start 08/19/16 at 14:30; Stop 08/20/16 at 14:29 Sodium Chloride (Iv Sodium Chloride 0.9% 500ml Bag) 500 ml @ 500 mls/hr 1X ONCE IV Last administered on 08/19/16 11:30; Start 08/19/16 at 15:15; Stop at 16:14; Status DC Vancomycin HCl 1 each 1 each PRN DAILY PRN MC SEE COMMENTS; Start 08/19/16 at 15:45 Magnesium Sulfate/ Dextrose (Magnesium Sulfate PREMIX 2GM) 50 ml @ 25 mls/hr PRN DAILY PRN IV for Mag < 1.7 on am labs; Start 08/19/16 at 15:45 Darbepoetin Ernst (Aranesp) 60 mcg Mo SQ ; Start 08/19/16 at 21:00 Calcitonin [place] 400 unit 400 unit BID SQ ; Start 08/19/16 at 21:00 Vancomycin HCl 2 gm/Sodium Chloride 500 ml @ 250 mls/hr 1X ONCE IV ; Start at 16:30; Stop 08/19/16 at 18:29 Albumin Human 100 ml @ 100 mls/hr PRN Q30MIN PRN IV SEE COMMENTS Last administered on 08/19/16t 17:26; Start 08/19/16 at 16:30; Stop 08/19/16 at 17:27 ; Status DC Sodium Chloride 1,000 ml @ 1,000 mls/hr Q1H PRN IV hypotension; Start 08/19/16 at 16:29; Stop 08/19/16 at 22:28 Sodium Chloride (Iv Sodium Chloride 0.9% 1000ml Bag) 1,000 ml @ 400 mls/hr Q2H30M PRN IV PATENCY; Start 08/19/16 at 16:29; Stop 08/20/16 at 04:28 Info (PHARMACY MONITORING -- do not chart) 1 each PRN DAILY PRN MC SEE COMMENTS ; Start 08/19/16 at 16:30 Info (PHARMACY MONITORING -- do not chart) 1 each PRN DAILY PRN MC SEE COMMENTS ; Start 08/19/16 at 16:30; Status UNV Active Scripts Active Reported [Mylanta] Tylenol (Acetaminophen) 325 Mg Tablet 1 Tab PO PRN Q4HRS [place] Enema (Na Phos,M-B/Na Phos,Di-Ba) 133 Ml Enema 1 Each RC ONCE Dulcolax (Bisacodyl) 10 Mg Supp.rect 10 Mg RC PRN DAILY PRN Zofran Odt (Ondansetron) 8 Mg Tab.rapdis 1 Tab PO Q8HRS Nitrostat (Nitroglycerin) 0.4 Mg Tab.subl 1 Tab SL UD Cyclobenzaprine Hcl 10 Mg Tablet 1 Tab PO TID Zepatier 50-100 mg Tablet (Elbasvir/Grazoprevir) 1 Each Tablet 1 Each PO [PhosLo] Coreg (Carvedilol) 25 Mg Tablet 1 Tab PO BID Aspirin 81 Mg Tab.chew 1 Tab PO DAILY Allopurinol 100 Mg Tablet 1 Tab PO DAILY Ventolin Hfa Inhaler (Albuterol Sulfate) 18 Gm Hfa.aer.ad 2 Puff INH Q4HRS Nephplex Rx Tablet (Vit B Cmplx No3/Fa/C/Biot/Zinc) 1 Each Tablet 1 Each PO Senokot (Sennosides) 8.6 Mg Tablet 1 Tab PO BID Oxycontin (Oxycodone HCl) 10 Mg Tab.er.12h 10 Mg PO BID Glycolax (Polyethylene Glycol 3350) 119 Gm Powder 17 Gm PO UD Percocet 10-325 Mg Tablet (Oxycodone/Acetaminophen) 1 Each Tablet 1 Tab PO Q4- 6HRS Vitamin D3 (Cholecalciferol (Vitamin D3)) 1,000 Unit Tablet 1 Tab PO DAILY Advair 250-50 Diskus (Fluticasone/Salmeterol) 1 Each Disk.w.dev 1 Puff IH BID Ipratropium [place] 0.2 Mg/1 Ml Solution 1 Vial NEB QID Lidoderm (Lidocaine) 700 Mg Adh..patch 1 Patch TP DAILY Nortriptyline Hcl 25 Mg Capsule 1 Cap PO QHS Ciprofloxacin Hcl 250 Mg Tablet 1 Tab PO BID Warfarin Sodium 2 Mg Tablet 1.5 Mg PO DAILY Gabapentin 300 Mg Capsule 300 Mg PO TID Zoloft (Sertraline Hcl) 100 Mg Tablet 1 Tab PO DAILY Allergies Allergies: Coded Allergies: erythromycin base (Verified Allergy, Intermediate, 08/19/16) gabapentin (Verified Allergy, Unknown, 08/19/16) morphine (Verified Allergy, Unknown, 08/19/16) Vitals VITALS Vital Signs Date Time Temp Pulse Resp B/P Pulse Ox O2 Delivery O2 Flow Rate FiO2 08/19/16 14:37 74 20 101/68 99 Nasal Cannula 2 08/19/16 10:20 100.2 100.2 Labs Labs Laboratory Tests Test 08/19/16 10:23 08/19/16 11:41 08/19/16 15:41 08/19/16 17:53 White Blood Count 13.7x10^3/uL (4.0-11.0) Red Blood Count 3.21x10^6/uL (3.50-5.40) Hemoglobin 8.8g/dL (12.0-15.5) Hematocrit 27.5% (36.0-47.0) Mean Corpuscular Volume 86fL (79-100) Mean Corpuscular Hemoglobin 28pg (25-35) Mean Corpuscular Hemoglobin Concent 32g/dL (31-37) Red Cell Distribution Width 16.2% (11.5-14.5) Platelet Count 395x10^3/uL (140-400) Neutrophils (%) (Auto) 64% (31-73) Lymphocytes (%) (Auto) 21% (24-48) Monocytes (%) (Auto) 12% (0-9) Eosinophils (%) (Auto) 2% (0-3) Basophils (%) (Auto) 1% (0-3) Neutrophils # (Auto) 8.7x10^3uL (1.8-7.7) Lymphocytes # (Auto) 2.9x10^3/uL (1.0-4.8) Monocytes # (Auto) 1.6x10^3/uL (0.0-1.1) Eosinophils # (Auto) 0.3x10^3/uL (0.0-0.7) Basophils # (Auto) 0.2x10^3/uL (0.0-0.2) Prothrombin Time 49.4SEC (11.7-14.0) Prothromb Time International Ratio 5.8 (0.8-1.1) Activated Partial Thromboplast Time 75SEC (24-38) Sodium Level 138mmol/L (136-145) Potassium Level 4.6mmol/L (3.5-5.1) Chloride Level 99mmol/L (98-107) Carbon Dioxide Level 33mmol/L (21-32) Anion Gap 6 (6-14) Blood Urea Nitrogen 32mg/dL (7-20) Creatinine 6.2mg/dL (0.6-1.0) Estimated GFR (Cockcroft-Gault) 6.9 Glucose Level 69mg/dL (70-99) Lactic Acid Level 0.8mmol/L (0.4-2.0) Calcium Level 10.7mg/dL (8.5-10.1) Magnesium Level 2.3mg/dL (1.8-2.4) Total Bilirubin 0.4mg/dL (0.2-1.0) Direct Bilirubin 0.2mg/dL (0.0-0.2) Aspartate Amino Transf (AST/SGOT) 25U/L (15-37) Alanine Aminotransferase (ALT/SGPT) 12U/L (14-59) Alkaline Phosphatase 76U/L (46-116) Ammonia 12mcmol/L (11-34) Creatine Kinase 53U/L (26-192) Troponin I Quantitative 0.056ng/mL (0.000-0.055) HO-Znb-L-Type Natriuretic Peptide 04750mg/mL (0-124) Total Protein 6.3g/dL (6.4-8.2) Albumin 1.4g/dL (3.4-5.0) Thyroid Stimulating Hormone (TSH) 1.402uIU/mL (0.358-3.74) Urine Collection Type Unknown Urine Color Yellow Urine Clarity Clear Urine pH 8.0 Urine Specific [place] 1.015 Urine Protein Tracemg/dL (NEG-TRACE) Urine Glucose (UA) Negativemg/dL (NEG) Urine Ketones (Stick) Negativemg/dL (NEG) Urine Blood Negative (NEG) Urine Nitrite Negative (NEG) Urine Bilirubin Negative (NEG) Urine Urobilinogen Dipstick 0.2mg/dL (0.2 mg/dL) Urine Leukocyte Esterase Trace (NEG) Urine RBC 0/HPF (0-2) Urine WBC 1-4/HPF (0-4) Urine Squamous Epithelial Cells Many/LPF Urine Bacteria 0/HPF (0-FEW) Urine Opiates Screen Neg (NEG) Urine Methadone Screen Neg (NEG) Urine Barbiturates Neg (NEG) Urine Phencyclidine Screen Neg (NEG) Urine Amphetamine/Methamphetamine Neg (NEG) Urine Benzodiazepines Screen Neg (NEG) Urine Cocaine Screen Neg (NEG) Urine Cannabinoids Screen Neg (NEG) Urine Ethyl Alcohol Neg (NEG) Glucose (Fingerstick) 71mg/dL (70-99) 71mg/dL (70-99) Laboratory Tests Test 08/19/16 10:23 08/19/16 11:41 08/19/16 15:41 08/19/16 17:53 White Blood Count 13.7x10^3/uL (4.0-11.0) Red Blood Count 3.21x10^6/uL (3.50-5.40) Hemoglobin 8.8g/dL (12.0-15.5) Hematocrit 27.5% (36.0-47.0) Mean Corpuscular Volume 86fL (79-100) Mean Corpuscular Hemoglobin 28pg (25-35) Mean Corpuscular Hemoglobin Concent 32g/dL (31-37) Red Cell Distribution Width 16.2% (11.5-14.5) Platelet Count 395x10^3/uL (140-400) Neutrophils (%) (Auto) 64% (31-73) Lymphocytes (%) (Auto) 21% (24-48) Monocytes (%) (Auto) 12% (0-9) Eosinophils (%) (Auto) 2% (0-3) Basophils (%) (Auto) 1% (0-3) Neutrophils # (Auto) 8.7x10^3uL (1.8-7.7) Lymphocytes # (Auto) 2.9x10^3/uL (1.0-4.8) Monocytes # (Auto) 1.6x10^3/uL (0.0-1.1) Eosinophils # (Auto) 0.3x10^3/uL (0.0-0.7) Basophils # (Auto) 0.2x10^3/uL (0.0-0.2) Prothrombin Time 49.4SEC (11.7-14.0) Prothromb Time International Ratio 5.8 (0.8-1.1) Activated Partial Thromboplast Time 75SEC (24-38) Sodium Level 138mmol/L (136-145) Potassium Level 4.6mmol/L (3.5-5.1) Chloride Level 99mmol/L (98-107) Carbon Dioxide Level 33mmol/L (21-32) Anion Gap 6 (6-14) Blood Urea Nitrogen 32mg/dL (7-20) Creatinine 6.2mg/dL (0.6-1.0) Estimated GFR (Cockcroft-Gault) 6.9 Glucose Level 69mg/dL (70-99) Lactic Acid Level 0.8mmol/L (0.4-2.0) Calcium Level 10.7mg/dL (8.5-10.1) Magnesium Level 2.3mg/dL (1.8-2.4) Total Bilirubin 0.4mg/dL (0.2-1.0) Direct Bilirubin 0.2mg/dL (0.0-0.2) Aspartate Amino Transf (AST/SGOT) 25U/L (15-37) Alanine Aminotransferase (ALT/SGPT) 12U/L (14-59) Alkaline Phosphatase 76U/L (46-116) Ammonia 12mcmol/L (11-34) Creatine Kinase 53U/L (26-192) Troponin I Quantitative 0.056ng/mL (0.000-0.055) BQ-Dmc-G-Type Natriuretic Peptide 43132pt/mL (0-124) Total Protein 6.3g/dL (6.4-8.2) Albumin 1.4g/dL (3.4-5.0) Thyroid Stimulating Hormone (TSH) 1.402uIU/mL (0.358-3.74) Urine Collection Type Unknown Urine Color Yellow Urine Clarity Clear Urine pH 8.0 Urine Specific [place] 1.015 Urine Protein Tracemg/dL (NEG-TRACE) Urine Glucose (UA) Negativemg/dL (NEG) Urine Ketones (Stick) Negativemg/dL (NEG) Urine Blood Negative (NEG) Urine Nitrite Negative (NEG) Urine Bilirubin Negative (NEG) Urine Urobilinogen Dipstick 0.2mg/dL (0.2 mg/dL) Urine Leukocyte Esterase Trace (NEG) Urine RBC 0/HPF (0-2) Urine WBC 1-4/HPF (0-4) Urine Squamous Epithelial Cells Many/LPF Urine Bacteria 0/HPF (0-FEW) Urine Opiates Screen Neg (NEG) Urine Methadone Screen Neg (NEG) Urine Barbiturates Neg (NEG) Urine Phencyclidine Screen Neg (NEG) Urine Amphetamine/Methamphetamine Neg (NEG) Urine Benzodiazepines Screen Neg (NEG) Urine Cocaine Screen Neg (NEG) Urine Cannabinoids Screen Neg (NEG) Urine Ethyl Alcohol Neg (NEG) Glucose (Fingerstick) 71mg/dL (70-99) 71mg/dL (70-99) TENISHA BLAKELY MD Aug 19, 2016 18:26
[2016-08-19 19:00] VITALS: BP 103/64
--- NOTE | 2016-08-19 19:18 | CONS ---
DATE OF CONSULTATION: PRIMARY PHYSICIAN: Dr. Johnson. REASON FOR CONSULTATION: ESRD dialysis. HISTORY OF PRESENT ILLNESS: The patient is a 61-year-old -[place] female who was transferred to the ER from [facility]. She is noted to have altered mental status at 6 a.m., but however, did not wake up till 9 o'clock and is otherwise noted to be oriented x 2 and talkative. She was found to be more sleepy than usual and did not even take her morning medications like she was supposed to. She dialyzes Friday, Friday and Friday. We were asked to see her for her dialysis needs. She is noted to have a fever of 100.2, blood pressure 98/63, sugar is 69. She is noted to have hepatitis C and is on treatment for the same with an albumin of 1.4, however, her ammonia is only 12. Prior to hospitalization, she was febrile to 101. Hence, I have ordered 1 gram of vancomycin for her. Reportedly, blood cultures were done in the ER. PAST MEDICAL HISTORY: As documented, but not able to be verified with the patient, is significant for CHF, COPD, type 2 diabetes, DVT, GERD, exogenous obesity, hypertension, hepatitis C, ESRD dialysis, gout, dialysis access placements and surgeries. FAMILY HISTORY: Unable to be obtained from the patient at this time. SOCIAL HISTORY: Unable to be obtained, but is not known to use alcohol or drugs based on ER notes, is currently at a [facility]. For rest of the details, please see electronic records. HERMELINDA MCINTYRE MD DR: MARYSOL/leah JOB#: [id number] / [id number]
[2016-08-19] MEDS: VANCOMYCIN PER PHARMACY MC PRN (19:21)
[2016-08-19] MEDS ORDERED: DARBEPOETIN ALFA 60 MCG/0.3 ML DISP.SYRIN. SQ SCH (21:00)
[2016-08-19] MEDS: CALCITONIN,SALMON 400 UNIT/2 ML VIAL. SQ SCH (22:06)
[2016-08-19 23:00] VITALS: BP 105/64
--- NOTE | 2016-08-19 23:14 | HP ---
ADMIT DATE: 08/19/2016 CHIEF COMPLAINT: Increasing confusion. HISTORY OF PRESENT ILLNESS: The patient is a 61-year-old -[place] woman who currently stays at the [facility] for [facility]. She was transferred to the Emergency Room with acute mental status changes and fever. She does have multiple medical issues including end-stage renal disease for which she already received dialysis today. In the Emergency Room, her exam was essentially nonfocal. CT of the head was within normal limits as was her chest x-ray. Only minor findings including WBC of 13 and INR of 5.8 were found and she was admitted for further workup and treatment. PAST MEDICAL HISTORY: CHF, hypertension, hep C, end-stage renal failure, on dialysis, diabetes mellitus. FAMILY HISTORY: Unable to obtain. The patient is not cooperative. SOCIAL HISTORY: Currently in a longterm. No toxic habits per chart. ALLERGIES: ERYTHROMYCIN, GABAPENTIN AND MORPHINE, UNKNOWN REACTION. MEDICATIONS: MAR reconciled with home medications. REVIEW OF SYSTEMS: The patient denies any problems, is unwilling to cooperate with questioning. PHYSICAL EXAMINATION: VITAL SIGNS: Show a blood pressure of 103/64, heart rate of 78, respiratory rate at 18. She is afebrile. GENERAL: This is an obese 61-year-old -[place] woman, awake, alert, clearly confused, in no acute distress. HEENT: Shows no scleral icterus. NECK: Short. LUNGS: Clear to auscultation anteriorly. CARDIOVASCULAR: Regular rate and rhythm. ABDOMEN: Has decreased bowel sounds, but is soft, nontender. EXTREMITIES: Show no edema. SKIN: Warm, soft and dry. LABORATORY DATA: CBC from today shows a WBC of 13.7 with 64% neutrophils, 12% monocytes, hemoglobin of 8.8, MCV of 86 and platelet count of 395. Chemistry is significant for a BUN and creatinine of 32 and 6.2. Electrolytes within normal limits. CO2 is slightly elevated at 33, calcium is 10.7 with an albumin of 1.4. BNP of 32,738, troponin of 0.056. Lactate at 0.8. Urinalysis negative for signs of infection. RADIOGRAPHIC IMAGING: Chest x-ray with cardiomegaly and borderline vascular congestion. CT of the head, no acute intracranial abnormality and abdomen/pelvis CT, no acute intra-abdominal or pelvic process detected. ASSESSMENT AND PLAN: The patient is a 61-year-old -[place] woman transferred from longterm for acute mental status changes. Exam and radiographic imaging essentially nonfocal. She has labs consistent with end-stage renal disease. However, her calcium is significantly elevated considering her very low albumin. Corrected calcium with these levels is 12.8. She is not on oral calcium replacement, but is taking vitamin D. We will give IV fluids cautiously with end-stage renal disease. Calcitonin has been started already. Low dose of bisphosphonates may be indicated as well. Etiology of hypercalcemia is unclear. We will obtain further labs including PTH, etc. Mental status seems to have improved significantly from this morning when she was apparently barely arousable. She is now verbal, although still quite confused. Appreciate Neurology service input. The patient has mildly elevated troponin, which I suspect is chronic in her given end-stage renal disease. Cardiac consult has been obtained by Emergency Room physician. No signs of cardiac compromise at this time. I will continue all home medications. The patient does carry a diagnosis of hepatitis C infection. We will continue monitoring labs there as well. Despite a normal ammonia level, cannot rule out hepatic encephalopathy. The patient has diabetes mellitus. We will continue her home regimen, add insulin sliding scale for monitoring purposes. Blood sugars in house actually have been rather on the low side in the 60s and 70s. The patient does have end-stage renal disease and is on dialysis Friday, Friday and Friday. She did receive dialysis today. Appreciate Dr. Taylor's help with management. SIMA HUITRON MD DR: REMA/nts JOB#: [id number] / [id number] KAYLYNN
[2016-08-20 03:12] LABS: VITAMIN D25(OH)TOTAL 37.4 ng/mL (30.0-100.0)
[2016-08-20 07:00] VITALS: BP 138/86
[2016-08-20 09:17] LABS: ALBUMIN 1.9 g/dL (3.4-5.0); CALCIUM 9.4 mg/dL (8.5-10.1); CREATININE 3.7 mg/dL (0.6-1.0); GFR 15.1; PHOSPHORUS 3.1 mg/dL (2.6-4.7); POTASSIUM 4.2 mmol/L (3.5-5.1)
--- NOTE | 2016-08-20 09:59 | RAD ---
CT of the head without contrast, 08/20/2016: History: Mental status change Comparison is made to a study from 08/19/2016. The ventricles are within normal limits in size. There is no shift of the midline structures. There is no evidence of acute intracranial hemorrhage or mass effect. IMPRESSION: The CT of the head without contrast reveals no acute abnormality.
--- NOTE | 2016-08-20 10:39 | CARD ---
APPROVED REPORT EXAM: Two-dimensional and M-mode echocardiogram with Doppler and color Doppler. Other Information Quality : Good INDICATION Elevated Troponin 2D DIMENSIONS RVDd3.3 (2.9-3.5cm)Left Atrium(2D)4.4 (1.6-4.0cm) IVSd1.6 (0.7-1.1cm)Aortic Root(2D)3.0 (2.0-3.7cm) LVDd5.8 (3.9-5.9cm)LVOT Diameter2.2 (1.8-2.4cm) PWd1.5 (0.7-1.1cm)LVDs3.1 (2.5-4.0cm) FS (%) 30.0 %SV127.2 ml LVEF(%)60.0 (>50%) Aortic Valve AoV Peak Anant.173.8cm/sAoV VTI35.9cm AO Peak GR.12.1mmHgLVOT VTI 20.05cm AO Mean GR.7mmHgAVA (VTI)2.00cm2 AI P 1/2 [id number] Mitral Valve MV E Kmpkvwtn685.3cm/sMV DECEL YICW253hi MV A Scqouxgh567.8cm/sE/A Ratio1.0 TDI Lateral E' P. V9.20cm/sMedial E' P. V8.95cm/s E/Lateral E'13.8E/Medial E'14.2 Tricuspid Valve TR P. Gdvmnybh331hz/sRAP QNTBSZAT95foGp TR Peak Gr.34moQvTBIX37oyGl Pulmonary Vein S1 Yrynykfc28.7cm/sS2 Veyqseop06.62cm/s D2 Vtslmjdh72.6cm/s LEFT VENTRICLE The left ventricle is normal size. There is mild to moderate concentric left ventricular hypertrophy. The left ventricular systolic function is normal and the ejection fraction is within normal range. T he Ejection Fraction is 55-60%. There is normal LV segmental wall motion. Transmitral Doppler flow pa ttern is Grade I-abnormal relaxation pattern. RIGHT VENTRICLE The right ventricle is normal size. The right ventricular systolic function is normal. ATRIA The left atrium is mildly dilated. The right atrium size is normal. The interatrial septum is intact with no evidence for an atrial septal defect or patent foramen ovale as noted on 2-D or Doppler imagi ng. AORTIC VALVE The aortic valve is calcified but opens well. Doppler and Color Flow revealed mild aortic regurgitati on. There is no significant aortic valvular stenosis. MITRAL VALVE The mitral valve is calcified but opens well. There is no evidence of mitral valve prolapse. There is no mitral valve stenosis. Doppler and Color-flow revealed mild mitral regurgitation. TRICUSPID VALVE The tricuspid valve is normal in structure and function. Doppler and Color Flow revealed trace to mil d tricuspid regurgitation. There is moderate pulmonary hypertension. The PA pressure was estimated at 54 mmHg. There is no tricuspid valve stenosis. PULMONIC VALVE Doppler and Color Flow revealed trace to mild pulmonic valvular regurgitation. There is no pulmonic v alvular stenosis. GREAT VESSELS The aortic root is normal in size. The ascending aorta is mildly dilated at 3.5 cm. The IVC is dilate d and collapses <50% with inspiration. PERICARDIAL EFFUSION There is no evidence of significant pericardial effusion. Critical Notification Critical Value: No <Conclusion> The left ventricular systolic function is normal and the ejection fraction is within normal range. Th e Ejection Fraction is 55-60%. There is normal LV segmental wall motion. Doppler and Color Flow revealed mild aortic regurgitation. Doppler and Color Flow revealed trace to mild tricuspid regurgitation. There is moderate pulmonary hy pertension. The PA pressure was estimated at 54 mmHg. The ascending aorta is mildly dilated at 3.5 cm. The IVC is dilated and collapses <50% with inspiration.
[2016-08-20] MEDS ORDERED: VANCOMYCIN 1 GM in IV NORMAL SALINE 250ML 250 ML IV SCH (10:45)
[2016-08-20 11:17] VITALS: BP 133/80
[2016-08-20] MEDS: CALCITONIN,SALMON 400 UNIT/2 ML VIAL. SQ SCH ×2 (11:54→23:30)
[2016-08-20 12:11] LABS: BASO % 0 % (0-3); EOS % 1 % (0-3); HEMATOCRIT 25.6 % (36.0-47.0); HEMOGLOBIN 8.1 g/dL (12.0-15.5); LYMPH # 1.8 x10^3/uL (1.0-4.8); LYMPH % 15 % (24-48); MEAN CORPUSCULAR HEMOGLOBIN 28 pg (25-35); MEAN CORPUSCULAR HGB CONC 32 g/dL (31-37); MEAN CORPUSCULAR VOLUME 87 fL (79-100); MONO % 11 % (0-9); NEUT % 73 % (31-73); PLATELET COUNT 358 x10^3/uL (140-400); RED BLOOD COUNT 2.94 x10^6/uL (3.50-5.40); RED CELL DISTRIBUTION WIDTH 16.7 % (11.5-14.5); WHITE BLOOD COUNT 12.4 x10^3/uL (4.0-11.0)
--- NOTE | 2016-08-20 12:14 | PDOC ---
PROGRESS NOTES Chief Complaint Chief Complaint AMS ASSESSMENT AND PLAN: 1. GPC bacteremia: start vanco. ID consult 2. AMS: waxing and waning MS. metabolic encephalopathy from hyper Ca and infect 3. Hypercalcemia: much improved (jamie Ca 11.1), not normalized yet. cont calcitonin. monitor 4. ESRD: HD on M// 5. Anemia: chronic. ESRD and inflammation induced. on EPO, iron as per nephrology 6. HCV: on antiviral rx at [place] 7. DM: by report. only ISS currently with good FSBG. HgbA1c ordered 8. CAD: no acute issues. minimal troponin elevation 2/2 ESRD. signif elevated pro-BNP at admit, but echo w/o sign of systolic or distolic dysfxn. + pulm HTN 9. OAC: was on coumadin with supratherapeutic INR at admit. unclear what rx is for. will try to obtain pertinent records. 10. Depression: on sertraline Vitals Vitals Vital Signs Date Time Temp Pulse Resp B/P Pulse Ox O2 Delivery O2 Flow Rate FiO2 08/20/16 11:17 98.7 77 18 133/80 91 Nasal Cannula 2.0 98.7 Physical Exam General: No acute distress, Other (somnolent) Heart: Normal S1, Normal S2 Lungs: Clear Abdomen: Normal bowel sounds, Soft, No tenderness, Other (obese abdomen) Extremities: No edema Skin: No rashes Labs LABS Laboratory Tests Test 08/19/16 15:41 08/19/16 17:53 08/19/16 21:30 08/20/16 08:30 Glucose (Fingerstick) 71mg/dL (70-99) 71mg/dL (70-99) 61mg/dL (70-99) Hemoglobin 7.9g/dL (12.0-15.5) Sodium Level 138mmol/L (136-145) Potassium Level 4.2mmol/L (3.5-5.1) Chloride Level 101mmol/L (98-107) Carbon Dioxide Level 29mmol/L (21-32) Anion Gap 8 (6-14) Blood Urea Nitrogen 17mg/dL (7-20) Creatinine 3.7mg/dL (0.6-1.0) Estimated GFR (Cockcroft-Gault) 15.1 Glucose Level 70mg/dL (70-99) Calcium Level 9.4mg/dL (8.5-10.1) Phosphorus Level 3.1mg/dL (2.6-4.7) Magnesium Level 1.9mg/dL (1.8-2.4) Albumin 1.9g/dL (3.4-5.0) Test 08/20/16 08:32 08/20/16 11:31 Glucose (Fingerstick) 67mg/dL (70-99) 68mg/dL (70-99) Review of Systems Review of Systems sleeping, not responding to verbal input SIMA HUIRTON MD Aug 20, 2016 12:14
[2016-08-20] MEDS ORDERED: ACETAMINOPHEN 325 MG TABLET. PO PRN (12:15)
[2016-08-20] MEDS ORDERED: BISACODYL 10 MG SUPP.RECT RC PRN (12:15)
[2016-08-20] MEDS ORDERED: NITROGLYCERIN SUBLINGUAL 0.4 MG BOTTLE OF 25. SL PRN (12:15)
[2016-08-20] MEDS ORDERED: SODIUM PHOSPHATES 19/7GM 133 ML ENEMA. RC PRN (12:15)
[2016-08-20] MEDS ORDERED: ALBUTEROL SULFATE 2.5 MG/3 ML NEBU. NEB SCH (12:30)
[2016-08-20] MEDS ORDERED: ONDANSETRON ODT 4 MG TAB.RAPDIS PO PRN (12:30)
[2016-08-20] MEDS: ALLOPURINOL 100 MG TABLET. PO SCH ×2 (13:00→13:16)
[2016-08-20] MEDS ORDERED: IPRATROPIUM BROMIDE 0.5 MG/2.5 ML NEBU. NEB SCH (13:00)
[2016-08-20] MEDS: ASPIRIN 81 MG TAB.CHEW PO SCH ×2 (13:00→13:16)
[2016-08-20] MEDS: SERTRALINE 50 MG TABLET. PO SCH ×2 (13:00→13:16)
[2016-08-20] MEDS: POLYETHYLENE GLYCOL 3350 17 GM PACKET. PO SCH (13:00)
--- NOTE | 2016-08-20 13:03 | PDOC ---
SUBJECTIVE ROS ESRD Remains drowsy and somewhat encephalopahtic unable to get ROS OBJECTIVE Vital Signs Vital Signs Date Time Temp Pulse Resp B/P Pulse Ox O2 Delivery O2 Flow Rate FiO2 08/20/16 11:17 98.7 77 18 133/80 91 Nasal Cannula 2.0 98.7 I & 0 Intake and Output 08/20/16 07:00 Intake Total 1500 ml Output Total 0 ml Balance 1500 ml Intake Oral 0 ml IV Total 1500 ml Output Urine Total 0 ml # Voids 1 PHYSICAL EXAM Physical Exam General Appearance: barely Awake not Alert Oriented x 0; lethargic In no Distress Eyes: VIsion Unchanged Conjunctiva Normal EN: No EN Drainage Mucous Memb. dryish Neck: no JVD no JVP Supple no Thyromegaly; short thick neck CVS: S1 S2 soft Murmur No Gallop No Rub no Edema Resp: no Rales no Rhonchi no Acc. Muscle use GI: BAS +ve NO Bruit Non Tender Non Distended : no CVA tenderness; no Suprapubic Tenderness SKIN: no Rashes Breast Exam deferred Mu.Sk: Adequate ROM no Muscle Atrophy Heme: Unable to palpate Obvious LAD no palp Splenomegaly NEURO: no Asterixis; Unable to follow commands Psych: ? Depressed no Active hallucination ASSESSMENT/PLAN Assessment/Plan ESRD: no emergent indication for HD Currently. doubt that AMS is Uremic. Fevers - (currently resolved) Bl Cx with GPC, One set from HD Cath done yest too. ID Consulted Anemia: Epogen Transfuse with next HD as needed. Hypo TN: (better currently) suspect sepsis asso with HD Cath unless other sources can be identified Sev. Hypoalbuminemia - check for Proteinruia; TF vs TPN ? AMS - Now suspect asso with GPC Bacteremia: Doubt Uremic, check FSBS, Neuro consulted, ? opoid related, ? due to ^ David Relative Hypercalcemia - Miacalcin as ordered SIRS - ? Cath based infection. 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 DATA Meds Current Medications Medications (Trade) Dose Ordered Sig/César Start Time Stop Time Status Last Admin Dose Admin Acetaminophen (Tylenol) 325 mg PRN Q4HRS PRN 08/20/16 12:15 Acetaminophen 650 mg 650 mg PRN Q4HRS PRN 08/19/16 14:30 08/20/16 14:29 Albumin Human 100 ml @ 100 mls/hr PRN Q30MIN PRN 08/19/16 16:30 08/19/16 17:27 DC 08/19/16 17:26 100 MLS/HR Albuterol Sulfate (Ventolin Neb Soln) 2.5 mg Q4HRS 08/20/16 12:30 Allopurinol (Zyloprim) 100 mg DAILY 08/20/16 13:00 Aspirin (Children'S Aspirin) 81 mg DAILY 08/20/16 13:00 Bisacodyl (Dulcolax Supp) 10 mg PRN DAILY PRN 08/20/16 12:15 Budesonide (Pulmicort) 0.5 mg RTBID 08/20/16 20:00 Calcitonin [place] 400 unit 400 unit BID 08/19/16 21:00 08/19/16 22:06 400 UNIT Carvedilol (Coreg) 25 mg BIDWMEALS 08/20/16 17:00 Darbepoetin Ernst (Aranesp) 60 mcg Mo 08/19/16 21:00 08/19/16 22:06 60 MCG Fentanyl Citrate (Fentanyl 2ml Vial) 50 mcg PRN Q2HR PRN 08/19/16 14:30 08/20/16 14:29 Gabapentin (Neurontin) 300 mg TID 08/20/16 14:00 Info (PHARMACY MONITORING -- do not chart) 1 each PRN DAILY PRN 08/19/16 16:30 UNV Ipratropium [place] (Atrovent) 0.2 mg QID 08/20/16 13:00 Lidocaine (Lidoderm) 1 patch DAILY 08/20/16 13:00 Magnesium Sulfate/ Dextrose (Magnesium Sulfate PREMIX 2GM) 50 ml @ 25 mls/hr PRN DAILY PRN 08/19/16 15:45 Nitroglycerin (Nitrostat) 0.4 mg PRN DAILY PRN 08/20/16 12:15 Nortriptyline HCl (Pamelor) 25 mg QHS 08/20/16 21:00 Ondansetron HCl (Zofran Odt) 8 mg PRN Q8HRS PRN 08/20/16 12:30 Ondansetron HCl (Zofran) 4 mg PRN Q8HRS PRN 08/19/16 14:30 08/20/16 14:29 Oxycodone HCl (Oxycontin) 10 mg BID 08/20/16 21:00 Oxycodone/ Acetaminophen (Percocet 10/325) 1 tab PRN Q6HRS PRN 08/20/16 12:15 Polyethylene Glycol (miraLAX PACKET) 17 gm DAILY 08/20/16 13:00 Sennosides (Senna) 8.6 mg BID 08/20/16 21:00 Sertraline HCl (Zoloft) 100 mg DAILY 08/20/16 13:00 Sodium Biphosphate/ Sodium Phosphate (Fleet Adult) 133 ml PRN DAILY PRN 08/20/16 12:15 Sodium Chloride (Iv Sodium Chloride 0.9% 500ml Bag) 500 ml @ 500 mls/hr 1X ONCE 08/19/16 11:00 08/19/16 11:59 DC 08/19/16 11:00 500 MLS/HR Sodium Chloride (Iv Sodium Chloride 0.9% 1000ml Bag) 1,000 ml @ 400 mls/hr Q2H30M PRN 08/19/16 16:29 08/20/16 04:28 DC Vancomycin HCl 1 each 1 each 1X ONCE 08/21/16 05:00 08/21/16 05:01 Vancomycin HCl 2 gm/Sodium Chloride 500 ml @ 250 mls/hr 1X ONCE 08/19/16 16:30 08/19/16 18:29 DC 08/19/16 22:02 250 MLS/HR Vancomycin HCl/ Sodium Chloride (Iv Sodium Chloride 0.9% 250ml) 250 ml @ 250 mls/hr Q12H 08/20/16 10:45 UNV Warfarin Sodium (Coumadin Per Physician) 1 each PRN DAILY PRN 08/20/16 12:30 Warfarin Sodium (Coumadin) 1.5 mg DAILY16 08/21/16 16:00 Lab Laboratory Tests Test 08/19/16 15:41 08/19/16 17:53 08/19/16 21:30 08/20/16 08:30 Glucose (Fingerstick) 71mg/dL (70-99) 71mg/dL (70-99) 61mg/dL (70-99) White Blood Count 12.4x10^3/uL (4.0-11.0) Red Blood Count 2.94x10^6/uL (3.50-5.40) Hemoglobin 8.1g/dL (12.0-15.5) Hematocrit 25.6% (36.0-47.0) Mean Corpuscular Volume 87fL (79-100) Mean Corpuscular Hemoglobin 28pg (25-35) Mean Corpuscular Hemoglobin Concent 32g/dL (31-37) Red Cell Distribution Width 16.7% (11.5-14.5) Platelet Count 358x10^3/uL (140-400) Neutrophils (%) (Auto) 73% (31-73) Lymphocytes (%) (Auto) 15% (24-48) Monocytes (%) (Auto) 11% (0-9) Eosinophils (%) (Auto) 1% (0-3) Basophils (%) (Auto) 0% (0-3) Neutrophils # (Auto) 9.0x10^3uL (1.8-7.7) Lymphocytes # (Auto) 1.8x10^3/uL (1.0-4.8) Monocytes # (Auto) 1.4x10^3/uL (0.0-1.1) Eosinophils # (Auto) 0.2x10^3/uL (0.0-0.7) Basophils # (Auto) 0.0x10^3/uL (0.0-0.2) Sodium Level 138mmol/L (136-145) Potassium Level 4.2mmol/L (3.5-5.1) Chloride Level 101mmol/L (98-107) Carbon Dioxide Level 29mmol/L (21-32) Anion Gap 8 (6-14) Blood Urea Nitrogen 17mg/dL (7-20) Creatinine 3.7mg/dL (0.6-1.0) Estimated GFR (Cockcroft-Gault) 15.1 Glucose Level 70mg/dL (70-99) Calcium Level 9.4mg/dL (8.5-10.1) Phosphorus Level 3.1mg/dL (2.6-4.7) Magnesium Level 1.9mg/dL (1.8-2.4) Troponin I Quantitative 0.041ng/mL (0.000-0.055) Albumin 1.9g/dL (3.4-5.0) Test 08/20/16 08:32 08/20/16 11:31 Glucose (Fingerstick) 67mg/dL (70-99) 68mg/dL (70-99) HERMELINDA MCINTYRE MD Aug 20, 2016 13:03
[2016-08-20] MEDS: GABAPENTIN 300 MG CAPSULE. PO SCH ×3 (13:16→21:00)
[2016-08-20] MEDS: LIDOCAINE (700MG/PATCH) PATCH. TP SCH (13:17)
[2016-08-20] MEDS: VANCOMYCIN PER PHARMACY MC PRN (13:28)
[2016-08-20] MEDS ORDERED: ALBUTEROL SULFATE 2.5 MG/3 ML NEBU. NEB PRN (14:45)
--- NOTE | 2016-08-20 14:46 | EEG ---
DATE OF SERVICE: 08/20/2016 EEG NUMBER: [id number] OBJECTIVE: This is a 61-year-old -[place] female patient with of persistent mental status changes. EEG was requested to evaluate cerebral activity and help rule out subclinical seizures. METHODS: Twenty electrodes were applied according to the international 10-20 electrode placement system. EKG monitoring, hyperventilation, intermittent photic stimulation, monopolar and bipolar montages are routinely utilized. The record was obtained on a digital system with video monitoring. FINDINGS: 1. Background: The patient was recorded in the mildly lethargic state. No clear awake and sleep differentiation. The overall background amplitude is variable. No clear posterior dominant rhythm is observed. The overall background rhythm is with diffuse slowing in theta and delta frequencies throughout the entire recording. 2. Abnormalities: No specific epileptiform discharge or electrographic seizure is seen. Diffuse slowing in theta and delta frequencies is throughout the entire recording. 3. Activation: Hyperventilation was not performed because the patient was unable to perform the technique. Intermittent photic stimulation was performed with insignificant photic driving. IMPRESSION: This EEG is an abnormal study for the mildly lethargic state. No clear posterior dominant rhythm is observed. The overall background rhythm is with diffuse slowing in theta and delta frequencies. No focal, lateralizing, specific epileptiform discharge or electrographic seizure is seen. This pattern of EEG is suggestive of diffuse encephalopathy. TENISHA BLAKELY MD DR: JOSE/leah JOB#: [id number] / [id number] KAYLYNN
[2016-08-20 15:00] VITALS: BP 122/65
[2016-08-20] MEDS: IPRATRPIUM/ALBUTEROL 0.5/2.5MG 3 ML NEBU. NEB SCH ×2 (15:31→20:39)
[2016-08-20] MEDS: OXYCODONE/APAP 10/325 TABLET. PO PRN (15:42)
[2016-08-20] MEDS: CARVEDILOL 12.5 MG TABLET PO SCH (17:23)
[2016-08-20 19:00] VITALS: BP 122/88
[2016-08-20] MEDS: BUDESONIDE 0.5 MG/2 ML NEBU NEB SCH (20:39)
[2016-08-20] MEDS: SENNOSIDES 8.6 MG TABLET PO SCH (21:00)
[2016-08-20] MEDS: OXYCODONE ER 10 MG TAB.ER.12H. PO SCH (21:27)
[2016-08-20] MEDS: NORTRIPTYLINE 25 MG CAPSULE PO SCH (21:27)
[2016-08-20 23:00] VITALS: BP 108/71
[2016-08-21 03:00] VITALS: BP 102/65
[2016-08-21] MEDS ORDERED: VANCOMYCIN RANDOM LEVEL. MC ONE (05:00)
[2016-08-21 05:17] LABS: BASO % 0 % (0-3); EOS % 2 % (0-3); HEMATOCRIT 25.1 % (36.0-47.0); HEMOGLOBIN 7.8 g/dL (12.0-15.5); LYMPH # 1.7 x10^3/uL (1.0-4.8); LYMPH % 15 % (24-48); MEAN CORPUSCULAR HEMOGLOBIN 27 pg (25-35); MEAN CORPUSCULAR HGB CONC 31 g/dL (31-37); MEAN CORPUSCULAR VOLUME 88 fL (79-100); MONO % 13 % (0-9); NEUT % 70 % (31-73); PLATELET COUNT 322 x10^3/uL (140-400); RED BLOOD COUNT 2.85 x10^6/uL (3.50-5.40); RED CELL DISTRIBUTION WIDTH 16.3 % (11.5-14.5); WHITE BLOOD COUNT 11.3 x10^3/uL (4.0-11.0)
[2016-08-21 05:30] LABS: PROTHROMBIN TIME PATIENT 60.8 SEC (11.7-14.0)
[2016-08-21 06:18] LABS: ALBUMIN 1.7 g/dL (3.4-5.0); CALCIUM 9.2 mg/dL (8.5-10.1); CREATININE 4.7 mg/dL (0.6-1.0); GFR 11.5; PHOSPHORUS 3.8 mg/dL (2.6-4.7); POTASSIUM 4.4 mmol/L (3.5-5.1)
[2016-08-21 06:27] LABS: INR 7.6 (0.8-1.1)
[2016-08-21 07:00] VITALS: BP 120/73
[2016-08-21] MEDS: IPRATRPIUM/ALBUTEROL 0.5/2.5MG 3 ML NEBU. NEB SCH ×4 (07:19→19:35)
[2016-08-21] MEDS: BUDESONIDE 0.5 MG/2 ML NEBU NEB SCH (07:19)
[2016-08-21] MEDS ORDERED: PHYTONADIONE 5 MG TABLET PO ONE (08:00)
[2016-08-21] MEDS: CARVEDILOL 12.5 MG TABLET PO SCH ×2 (08:00→16:47)
[2016-08-21] MEDS: LIDOCAINE (700MG/PATCH) PATCH. TP SCH (08:26)
--- NOTE | 2016-08-21 08:43 | PDOC ---
PROGRESS NOTES Chief Complaint Chief Complaint AMS ASSESSMENT AND PLAN: 1. GPC bacteremia with Sepsis: vanco started yesterday. ID consult pending. VS now stable 2. AMS: waxing and waning MS. metabolic encephalopathy from hyper Ca and infect 3. Hypercalcemia: essentially stable (jamie Ca 11.0). cont calcitonin. low dose pamidronate today. labs, incl PTH, SPEP etc pending 4. ESRD: HD on // 5. Anemia: chronic. ESRD and inflammation induced. on EPO, iron as per nephrology 6. HCV: on antiviral rx at [place] 7. DM: by report. only ISS currently with good FSBG. HgbA1c ordered 8. CAD: no acute issues. minimal troponin elevation 2/ ESRD. signif elevated pro-BNP at admit, but echo w/o sign of systolic or diastolic dysfxn. + pulm HTN 9. OAC: was on coumadin with supratherapeutic INR at admit, worsening. reverse with PO vit K. unclear what rx is for. will try to obtain pertinent records. 10. Depression: on sertraline, depressed mood, tearful. low dose ativan PRN 11. Prophylaxis: not indicated with elevated INR Vitals Vitals Vital Signs Date Time Temp Pulse Resp B/P Pulse Ox O2 Delivery O2 Flow Rate FiO2 08/21/16 07:13 97 Nasal Cannula 2.0 08/21/16 07:00 97.9 78 18 120/73 97.9 Physical Exam General: Alert, No acute distress, Other (tearful, initially declining food, meds, HD. agreeable after discussion and involving sister jovana) Heart: Normal S1, Normal S2 Lungs: Clear Abdomen: Normal bowel sounds, Soft, No tenderness, Other (obese abdomen) Extremities: No edema Skin: No rashes Labs LABS Laboratory Tests Test 08/20/16 11:31 08/20/16 16:42 08/20/16 21:12 08/20/16 22:05 Glucose (Fingerstick) 68mg/dL (70-99) 65mg/dL (70-99) 49mg/dL (70-99) 63mg/dL (70-99) Test 08/20/16 22:53 08/21/16 04:40 08/21/16 07:42 Glucose (Fingerstick) 81mg/dL (70-99) 89mg/dL (70-99) White Blood Count 11.3x10^3/uL (4.0-11.0) Red Blood Count 2.85x10^6/uL (3.50-5.40) Hemoglobin 7.8g/dL (12.0-15.5) Hematocrit 25.1% (36.0-47.0) Mean Corpuscular Volume 88fL (79-100) Mean Corpuscular Hemoglobin 27pg (25-35) Mean Corpuscular Hemoglobin Concent 31g/dL (31-37) Red Cell Distribution Width 16.3% (11.5-14.5) Platelet Count 322x10^3/uL (140-400) Neutrophils (%) (Auto) 70% (31-73) Lymphocytes (%) (Auto) 15% (24-48) Monocytes (%) (Auto) 13% (0-9) Eosinophils (%) (Auto) 2% (0-3) Basophils (%) (Auto) 0% (0-3) Neutrophils # (Auto) 7.9x10^3uL (1.8-7.7) Lymphocytes # (Auto) 1.7x10^3/uL (1.0-4.8) Monocytes # (Auto) 1.4x10^3/uL (0.0-1.1) Eosinophils # (Auto) 0.3x10^3/uL (0.0-0.7) Basophils # (Auto) 0.0x10^3/uL (0.0-0.2) Prothrombin Time 60.8SEC (11.7-14.0) Prothromb Time International Ratio 7.6 (0.8-1.1) Sodium Level 135mmol/L (136-145) Potassium Level 4.4mmol/L (3.5-5.1) Chloride Level 100mmol/L (98-107) Carbon Dioxide Level 27mmol/L (21-32) Anion Gap 8 (6-14) Blood Urea Nitrogen 25mg/dL (7-20) Creatinine 4.7mg/dL (0.6-1.0) Estimated GFR (Cockcroft-Gault) 11.5 Glucose Level 78mg/dL (70-99) Calcium Level 9.2mg/dL (8.5-10.1) Phosphorus Level 3.8mg/dL (2.6-4.7) Magnesium Level 2.0mg/dL (1.8-2.4) Albumin 1.7g/dL (3.4-5.0) Random Vancomycin Level 23.6mcg/mL Comment Review of Relevant I have reviewed the following items christi (where applicable) has been applied. Labs Laboratory Tests Test 08/19/16 10:23 08/19/16 11:41 08/19/16 15:41 08/19/16 17:53 White Blood Count 13.7x10^3/uL (4.0-11.0) Red Blood Count 3.21x10^6/uL (3.50-5.40) Hemoglobin 8.8g/dL (12.0-15.5) Hematocrit 27.5% (36.0-47.0) Mean Corpuscular Volume 86fL (79-100) Mean Corpuscular Hemoglobin 28pg (25-35) Mean Corpuscular Hemoglobin Concent 32g/dL (31-37) Red Cell Distribution Width 16.2% (11.5-14.5) Platelet Count 395x10^3/uL (140-400) Neutrophils (%) (Auto) 64% (31-73) Lymphocytes (%) (Auto) 21% (24-48) Monocytes (%) (Auto) 12% (0-9) Eosinophils (%) (Auto) 2% (0-3) Basophils (%) (Auto) 1% (0-3) Neutrophils # (Auto) 8.7x10^3uL (1.8-7.7) Lymphocytes # (Auto) 2.9x10^3/uL (1.0-4.8) Monocytes # (Auto) 1.6x10^3/uL (0.0-1.1) Eosinophils # (Auto) 0.3x10^3/uL (0.0-0.7) Basophils # (Auto) 0.2x10^3/uL (0.0-0.2) Prothrombin Time 49.4SEC (11.7-14.0) Prothromb Time International Ratio 5.8 (0.8-1.1) Activated Partial Thromboplast Time 75SEC (24-38) Sodium Level 138mmol/L (136-145) Potassium Level 4.6mmol/L (3.5-5.1) Chloride Level 99mmol/L (98-107) Carbon Dioxide Level 33mmol/L (21-32) Anion Gap 6 (6-14) Blood Urea Nitrogen 32mg/dL (7-20) Creatinine 6.2mg/dL (0.6-1.0) Estimated GFR (Cockcroft-Gault) 6.9 Glucose Level 69mg/dL (70-99) Lactic Acid Level 0.8mmol/L (0.4-2.0) Calcium Level 10.7mg/dL (8.5-10.1) Magnesium Level 2.3mg/dL (1.8-2.4) Total Bilirubin 0.4mg/dL (0.2-1.0) Direct Bilirubin 0.2mg/dL (0.0-0.2) Aspartate Amino Transf (AST/SGOT) 25U/L (15-37) Alanine Aminotransferase (ALT/SGPT) 12U/L (14-59) Alkaline Phosphatase 76U/L (46-116) Ammonia 12mcmol/L (11-34) Creatine Kinase 53U/L (26-192) Troponin I Quantitative 0.056ng/mL (0.000-0.055) MF-Chg-Y-Type Natriuretic Peptide 22873fc/mL (0-124) Total Protein 6.3g/dL (6.4-8.2) Albumin 1.4g/dL (3.4-5.0) Vitamin B12 Level 1334pg/mL (211-946) 25-Hydroxy Vitamin D Total 37.4ng/mL (30.0-100.0) Thyroid Stimulating Hormone (TSH) 1.402uIU/mL (0.358-3.74) Urine Collection Type Unknown Urine Color Yellow Urine Clarity Clear Urine pH 8.0 Urine Specific [place] 1.015 Urine Protein Tracemg/dL (NEG-TRACE) Urine Glucose (UA) Negativemg/dL (NEG) Urine Ketones (Stick) Negativemg/dL (NEG) Urine Blood Negative (NEG) Urine Nitrite Negative (NEG) Urine Bilirubin Negative (NEG) Urine Urobilinogen Dipstick 0.2mg/dL (0.2 mg/dL) Urine Leukocyte Esterase Trace (NEG) Urine RBC 0/HPF (0-2) Urine WBC 1-4/HPF (0-4) Urine Squamous Epithelial Cells Many/LPF Urine Bacteria 0/HPF (0-FEW) Urine Opiates Screen Neg (NEG) Urine Methadone Screen Neg (NEG) Urine Barbiturates Neg (NEG) Urine Phencyclidine Screen Neg (NEG) Urine Amphetamine/Methamphetamine Neg (NEG) Urine Benzodiazepines Screen Neg (NEG) Urine Cocaine Screen Neg (NEG) Urine Cannabinoids Screen Neg (NEG) Urine Ethyl Alcohol Neg (NEG) Glucose (Fingerstick) 71mg/dL (70-99) 71mg/dL (70-99) Test 08/19/16 21:30 08/20/16 08:30 08/20/16 08:32 08/20/16 11:31 Glucose (Fingerstick) 61mg/dL (70-99) 67mg/dL (70-99) 68mg/dL (70-99) White Blood Count 12.4x10^3/uL (4.0-11.0) Red Blood Count 2.94x10^6/uL (3.50-5.40) Hemoglobin 8.1g/dL (12.0-15.5) Hematocrit 25.6% (36.0-47.0) Mean Corpuscular Volume 87fL (79-100) Mean Corpuscular Hemoglobin 28pg (25-35) Mean Corpuscular Hemoglobin Concent 32g/dL (31-37) Red Cell Distribution Width 16.7% (11.5-14.5) Platelet Count 358x10^3/uL (140-400) Neutrophils (%) (Auto) 73% (31-73) Lymphocytes (%) (Auto) 15% (24-48) Monocytes (%) (Auto) 11% (0-9) Eosinophils (%) (Auto) 1% (0-3) Basophils (%) (Auto) 0% (0-3) Neutrophils # (Auto) 9.0x10^3uL (1.8-7.7) Lymphocytes # (Auto) 1.8x10^3/uL (1.0-4.8) Monocytes # (Auto) 1.4x10^3/uL (0.0-1.1) Eosinophils # (Auto) 0.2x10^3/uL (0.0-0.7) Basophils # (Auto) 0.0x10^3/uL (0.0-0.2) Sodium Level 138mmol/L (136-145) Potassium Level 4.2mmol/L (3.5-5.1) Chloride Level 101mmol/L (98-107) Carbon Dioxide Level 29mmol/L (21-32) Anion Gap 8 (6-14) Blood Urea Nitrogen 17mg/dL (7-20) Creatinine 3.7mg/dL (0.6-1.0) Estimated GFR (Cockcroft-Gault) 15.1 Glucose Level 70mg/dL (70-99) Calcium Level 9.4mg/dL (8.5-10.1) Phosphorus Level 3.1mg/dL (2.6-4.7) Magnesium Level 1.9mg/dL (1.8-2.4) Troponin I Quantitative 0.041ng/mL (0.000-0.055) Albumin 1.9g/dL (3.4-5.0) Test 08/20/16 16:42 08/20/16 21:12 08/20/16 22:05 08/20/16 22:53 Glucose (Fingerstick) 65mg/dL (70-99) 49mg/dL (70-99) 63mg/dL (70-99) 81mg/dL (70-99) Test 08/21/16 04:40 08/21/16 07:42 White Blood Count 11.3x10^3/uL (4.0-11.0) Red Blood Count 2.85x10^6/uL (3.50-5.40) Hemoglobin 7.8g/dL (12.0-15.5) Hematocrit 25.1% (36.0-47.0) Mean Corpuscular Volume 88fL (79-100) Mean Corpuscular Hemoglobin 27pg (25-35) Mean Corpuscular Hemoglobin Concent 31g/dL (31-37) Red Cell Distribution Width 16.3% (11.5-14.5) Platelet Count 322x10^3/uL (140-400) Neutrophils (%) (Auto) 70% (31-73) Lymphocytes (%) (Auto) 15% (24-48) Monocytes (%) (Auto) 13% (0-9) Eosinophils (%) (Auto) 2% (0-3) Basophils (%) (Auto) 0% (0-3) Neutrophils # (Auto) 7.9x10^3uL (1.8-7.7) Lymphocytes # (Auto) 1.7x10^3/uL (1.0-4.8) Monocytes # (Auto) 1.4x10^3/uL (0.0-1.1) Eosinophils # (Auto) 0.3x10^3/uL (0.0-0.7) Basophils # (Auto) 0.0x10^3/uL (0.0-0.2) Prothrombin Time 60.8SEC (11.7-14.0) Prothromb Time International Ratio 7.6 (0.8-1.1) Sodium Level 135mmol/L (136-145) Potassium Level 4.4mmol/L (3.5-5.1) Chloride Level 100mmol/L (98-107) Carbon Dioxide Level 27mmol/L (21-32) Anion Gap 8 (6-14) Blood Urea Nitrogen 25mg/dL (7-20) Creatinine 4.7mg/dL (0.6-1.0) Estimated GFR (Cockcroft-Gault) 11.5 Glucose Level 78mg/dL (70-99) Calcium Level 9.2mg/dL (8.5-10.1) Phosphorus Level 3.8mg/dL (2.6-4.7) Magnesium Level 2.0mg/dL (1.8-2.4) Albumin 1.7g/dL (3.4-5.0) Random Vancomycin Level 23.6mcg/mL Glucose (Fingerstick) 89mg/dL (70-99) Laboratory Tests Test 08/20/16 11:31 08/20/16 16:42 08/20/16 21:12 08/20/16 22:05 Glucose (Fingerstick) 68mg/dL (70-99) 65mg/dL (70-99) 49mg/dL (70-99) 63mg/dL (70-99) Test 08/20/16 22:53 08/21/16 04:40 08/21/16 07:42 Glucose (Fingerstick) 81mg/dL (70-99) 89mg/dL (70-99) White Blood Count 11.3x10^3/uL (4.0-11.0) Red Blood Count 2.85x10^6/uL (3.50-5.40) Hemoglobin 7.8g/dL (12.0-15.5) Hematocrit 25.1% (36.0-47.0) Mean Corpuscular Volume 88fL (79-100) Mean Corpuscular Hemoglobin 27pg (25-35) Mean Corpuscular Hemoglobin Concent 31g/dL (31-37) Red Cell Distribution Width 16.3% (11.5-14.5) Platelet Count 322x10^3/uL (140-400) Neutrophils (%) (Auto) 70% (31-73) Lymphocytes (%) (Auto) 15% (24-48) Monocytes (%) (Auto) 13% (0-9) Eosinophils (%) (Auto) 2% (0-3) Basophils (%) (Auto) 0% (0-3) Neutrophils # (Auto) 7.9x10^3uL (1.8-7.7) Lymphocytes # (Auto) 1.7x10^3/uL (1.0-4.8) Monocytes # (Auto) 1.4x10^3/uL (0.0-1.1) Eosinophils # (Auto) 0.3x10^3/uL (0.0-0.7) Basophils # (Auto) 0.0x10^3/uL (0.0-0.2) Prothrombin Time 60.8SEC (11.7-14.0) Prothromb Time International Ratio 7.6 (0.8-1.1) Sodium Level 135mmol/L (136-145) Potassium Level 4.4mmol/L (3.5-5.1) Chloride Level 100mmol/L (98-107) Carbon Dioxide Level 27mmol/L (21-32) Anion Gap 8 (6-14) Blood Urea Nitrogen 25mg/dL (7-20) Creatinine 4.7mg/dL (0.6-1.0) Estimated GFR (Cockcroft-Gault) 11.5 Glucose Level 78mg/dL (70-99) Calcium Level 9.2mg/dL (8.5-10.1) Phosphorus Level 3.8mg/dL (2.6-4.7) Magnesium Level 2.0mg/dL (1.8-2.4) Albumin 1.7g/dL (3.4-5.0) Random Vancomycin Level 23.6mcg/mL Microbiology 08/19/16 Blood Culture - Preliminary, Resulted NO GROWTH AFTER 1 DAY Medications Current Medications Acetaminophen 650 mg 650 mg 1X ONCE [place] ; Start 08/19/16 at 10:45; Stop at 10:58; Status DC Sodium Chloride (Iv Sodium Chloride 0.9% 500ml Bag) 500 ml @ 500 mls/hr 1X ONCE IV Last administered on 08/19/16 11:00; Start 08/19/16 at 11:00; Stop at 11:59; Status DC Acetaminophen (Tylenol) 500 mg 1X ONCE PO Last administered on 08/19/16 11:00 ; Start 08/19/16 at 11:00; Stop 08/19/16 at 11:01; Status DC Ondansetron HCl (Zofran) 4 mg PRN Q8HRS PRN IV NAUSEA/VOMITING; Start 08/19/16 at 14:30; Stop 08/20/16 at 14:29; Status DC Fentanyl Citrate (Fentanyl 2ml Vial) 50 mcg PRN Q2HR PRN IV PAIN; Start at 14:30; Stop 08/20/16 at 14:29; Status DC Acetaminophen 650 mg 650 mg PRN Q4HRS PRN PO FEVER; Start 08/19/16 at 14:30; Stop 08/20/16 at 14:29; Status DC Sodium Chloride (Iv Sodium Chloride 0.9% 500ml Bag) 500 ml @ 500 mls/hr 1X ONCE IV Last administered on 08/19/16 11:30; Start 08/19/16 at 15:15; Stop at 16:14; Status DC Vancomycin HCl 1 each 1 each PRN DAILY PRN MC SEE COMMENTS Last administered on 08/20/16 13:28; Start 08/19/16 at 15:45 Magnesium Sulfate/ Dextrose (Magnesium Sulfate PREMIX 2GM) 50 ml @ 25 mls/hr PRN DAILY PRN IV for Mag < 1.7 on am labs; Start 08/19/16 at 15:45 Darbepoetin Ernst (Aranesp) 60 mcg Mo SQ Last administered on 08/19/16 22:06; Start 08/19/16 at 21:00 Calcitonin Busy 400 unit 400 unit BID SQ Last administered on 08/20/16 23:30 ; Start 08/19/16 at 21:00 Vancomycin HCl 2 gm/Sodium Chloride 500 ml @ 250 mls/hr 1X ONCE IV Last administered on 08/19/16 22:02; Start 08/19/16 at 16:30; Stop 08/19/16 at 18:29 ; Status DC Albumin Human 100 ml @ 100 mls/hr PRN Q30MIN PRN IV SEE COMMENTS Last administered on 08/19/16 17:26; Start 08/19/16 at 16:30; Stop 08/19/16 at 17:27 ; Status DC Sodium Chloride 1,000 ml @ 1,000 mls/hr Q1H PRN IV hypotension; Start 08/19/16 at 16:29; Stop 08/19/16 at 22:28; Status DC Sodium Chloride (Iv Sodium Chloride 0.9% 1000ml Bag) 1,000 ml @ 400 mls/hr Q2H30M PRN IV PATENCY; Start 08/19/16 at 16:29; Stop 08/20/16 at 04:28; Status DC Info (PHARMACY MONITORING -- do not chart) 1 each PRN DAILY PRN MC SEE COMMENTS ; Start 08/19/16 at 16:30 Info (PHARMACY MONITORING -- do not chart) 1 each PRN DAILY PRN MC SEE COMMENTS ; Start 08/19/16 at 16:30; Status UNV Vancomycin HCl 1 each 1 each 1X ONCE MC ; Start 08/21/16 at 05:00; Stop 08/21/16 at 05:01; Status DC Vancomycin HCl/ Sodium Chloride (Iv Sodium Chloride 0.9% 250ml) 250 ml @ 250 mls/hr Q12H IV ; Start 08/20/16 at 10:45; Status UNV Acetaminophen (Tylenol) 325 mg PRN Q4HRS PRN PO pain, fever; Start 08/20/16 at 12:15 Allopurinol (Zyloprim) 100 mg DAILY PO ; Start 08/20/16 at 13:00 Aspirin (Children'S Aspirin) 81 mg DAILY PO ; Start 08/20/16 at 13:00 Bisacodyl (Dulcolax Supp) 10 mg PRN DAILY PRN RC CONSTIPATION; Start 08/20/16 at 12:15 Gabapentin (Neurontin) 300 mg TID PO ; Start 08/20/16 at 14:00 Ipratropium [place] (Atrovent) 0.2 mg QID NEB ; Start 08/20/16 at 13:00; Stop at 14:42; Status DC Lidocaine (Lidoderm) 1 patch DAILY TP Last administered on 08/21/16 08:26; Start 08/20/16 at 13:00 Sodium Biphosphate/ Sodium Phosphate (Fleet Adult) 133 ml PRN DAILY PRN RC constipation; Start 08/20/16 at 12:15 Nitroglycerin (Nitrostat) 0.4 mg PRN DAILY PRN SL angina; Start 08/20/16 at 12: 15 Nortriptyline HCl (Pamelor) 25 mg QHS PO Last administered on 08/20/16 21:27; Start 08/20/16 at 21:00 Oxycodone HCl (Oxycontin) 10 mg BID PO Last administered on 08/20/16 21:27; Start 08/20/16 at 21:00 Oxycodone/ Acetaminophen (Percocet 10/325) 1 tab PRN Q6HRS PRN PO pain Last administered on 08/20/16 15:42; Start 08/20/16 at 12:15 Polyethylene Glycol (miraLAX PACKET) 17 gm DAILY PO ; Start 08/20/16 at 13:00 Sennosides (Senna) 8.6 mg BID PO ; Start 08/20/16 at 21:00 Warfarin Sodium (Coumadin) 1.5 mg DAILY16 PO ; Start 08/21/16 at 16:00; Status Cancel Albuterol Sulfate (Ventolin Neb Soln) 2.5 mg Q4HRS NEB ; Start 08/20/16 at 12:30 ; Stop 08/20/16 at 14:42; Status DC Carvedilol (Coreg) 25 mg BIDWMEALS PO Last administered on 08/20/16 17:23; Start 08/20/16 at 17:00 Budesonide (Pulmicort) 0.5 mg RTBID NEB Last administered on 08/21/16 07:19; Start 08/20/16 at 20:00 Ondansetron HCl (Zofran Odt) 8 mg PRN Q8HRS PRN PO NAUSEA/VOMITING 1ST CHOICE; Start 08/20/16 at 12:30 Sertraline HCl (Zoloft) 100 mg DAILY PO ; Start 08/20/16 at 13:00 Warfarin Sodium (Coumadin Per Physician) 1 each PRN DAILY PRN MC SEE COMMENTS; Start 08/20/16 at 12:30 Albuterol Sulfate (Ventolin Neb Soln) 2.5 mg PRN Q4HRS PRN NEB SHORTNESS OF BREATH; Start 08/20/16 at 14:45 Albuterol/ Ipratropium (Duoneb) 3 ml RTQID NEB Last administered on 08/21/16 07 :19; Start 08/20/16 at 16:00 Phytonadione (Mephyton) 2.5 mg 1X ONCE PO Last administered on 08/21/16 08:20 ; Start 08/21/16 at 08:00; Stop 08/21/16 at 08:01; Status DC Active Scripts Active Reported [Mylanta] Tylenol (Acetaminophen) 325 Mg Tablet 1 Tab PO PRN Q4HRS Fleet Enema (Na Phos,M-B/Na Phos,Di-Ba) 133 Ml Enema 1 Each RC ONCE Dulcolax (Bisacodyl) 10 Mg Supp.rect 10 Mg RC PRN DAILY PRN Zofran Odt (Ondansetron) 8 Mg Tab.rapdis 1 Tab PO Q8HRS Nitrostat (Nitroglycerin) 0.4 Mg Tab.subl 1 Tab SL UD Cyclobenzaprine Hcl 10 Mg Tablet 1 Tab PO TID Zepatier 50-100 mg Tablet (Elbasvir/Grazoprevir) 1 Each Tablet 1 Each PO [PhosLo] Coreg (Carvedilol) 25 Mg Tablet 1 Tab PO BID Aspirin 81 Mg Tab.chew 1 Tab PO DAILY Allopurinol 100 Mg Tablet 1 Tab PO DAILY Ventolin Hfa Inhaler (Albuterol Sulfate) 18 Gm Hfa.aer.ad 2 Puff INH Q4HRS Nephplex Rx Tablet (Vit B Cmplx No3/Fa/C/Biot/Zinc) 1 Each Tablet 1 Each PO Senokot (Sennosides) 8.6 Mg Tablet 1 Tab PO BID Oxycontin (Oxycodone HCl) 10 Mg Tab.er.12h 10 Mg PO BID Glycolax (Polyethylene Glycol 3350) 119 Gm Powder 17 Gm PO UD Percocet 10-325 Mg Tablet (Oxycodone/Acetaminophen) 1 Each Tablet 1 Tab PO Q4- 6HRS Vitamin D3 (Cholecalciferol (Vitamin D3)) 1,000 Unit Tablet 1 Tab PO DAILY Advair 250-50 Diskus (Fluticasone/Salmeterol) 1 Each Disk.w.dev 1 Puff IH BID Ipratropium [place] 0.2 Mg/1 Ml Solution 1 Vial NEB QID Lidoderm (Lidocaine) 700 Mg Adh..patch 1 Patch TP DAILY Nortriptyline Hcl 25 Mg Capsule 1 Cap PO QHS Ciprofloxacin Hcl 250 Mg Tablet 1 Tab PO BID Warfarin Sodium 2 Mg Tablet 1.5 Mg PO DAILY Gabapentin 300 Mg Capsule 300 Mg PO TID Zoloft (Sertraline Hcl) 100 Mg Tablet 1 Tab PO DAILY Vitals/I & O Vital Sign - Last 24 Hours 08/20/16 08/20/16 08/20/16 08/20/16 11:17 15:00 15:36 15:42 Temp 98.7 98.9 98.7 98.9 Pulse 77 79 Resp 18 18 B/P 133/80 122/65 Pulse Ox 91 98 98 O2 Delivery Nasal Cannula Nasal Cannula Nasal Cannula Nasal Cannula O2 Flow Rate 2.0 2.0 2.0 2.0 08/20/16 08/20/16 08/20/16 08/20/16 16:42 17:23 19:00 20:00 Temp 98.0 98.0 Pulse 79 77 Resp 20 B/P 122/65 122/88 Pulse Ox 100 O2 Delivery Nasal Cannula Room Air Nasal Cannula O2 Flow Rate 2.0 2.0 08/20/16 08/20/16 08/20/16 08/21/16 20:40 21:27 23:00 01:27 Temp 98.3 98.3 Pulse 75 Resp 20 20 20 B/P 108/71 Pulse Ox 100 98 O2 Delivery Nasal Cannula Nasal Cannula Room Air Nasal Cannula O2 Flow Rate 2.0 08/21/16 08/21/16 08/21/16 03:00 07:00 07:13 Temp 98.3 97.9 98.3 97.9 Pulse 79 78 Resp 20 18 B/P 102/65 120/73 Pulse Ox 97 96 97 O2 Delivery Nasal Cannula Room Air Nasal Cannula O2 Flow Rate 2.0 2.0 Intake and Output 08/20/16 08/20/16 08/21/16 15:00 23:00 07:00 Intake Total 100 ml Output Total 0 ml Balance 100 ml SIMA HUITRON MD Aug 21, 2016 08:43
[2016-08-21] MEDS: SENNOSIDES 8.6 MG TABLET PO SCH ×2 (09:00→20:42)
[2016-08-21] MEDS: ALLOPURINOL 100 MG TABLET. PO SCH (09:00)
[2016-08-21] MEDS ORDERED: NORMAL SALINE IV ONE (09:00)
[2016-08-21] MEDS ORDERED: PAMIDRONATE IV ONE (09:00)
[2016-08-21] MEDS: ASPIRIN 81 MG TAB.CHEW PO SCH (09:00)
[2016-08-21] MEDS: GABAPENTIN 300 MG CAPSULE. PO SCH ×3 (09:00→20:43)
[2016-08-21] MEDS: POLYETHYLENE GLYCOL 3350 17 GM PACKET. PO SCH (09:00)
[2016-08-21] MEDS: CALCITONIN,SALMON 400 UNIT/2 ML VIAL. SQ SCH ×3 (09:00→21:00)
[2016-08-21] MEDS: OXYCODONE ER 10 MG TAB.ER.12H. PO SCH ×2 (09:30→20:42)
[2016-08-21] MEDS: SERTRALINE 50 MG TABLET. PO SCH (09:30)
[2016-08-21] MEDS ORDERED: LORAZEPAM 2 MG/ML VIAL IV ONE (09:30)
--- NOTE | 2016-08-21 09:44 | PDOC ---
Infectious Disease Note Vital Sign Vital Signs Vital Signs Date Time Temp Pulse Resp B/P Pulse Ox O2 Delivery O2 Flow Rate FiO2 08/21/16 08:00 Room Air 08/21/16 07:13 97 2.0 08/21/16 07:00 97.9 78 18 120/73 97.9 Labs Lab Laboratory Tests Test 08/20/16 11:31 08/20/16 16:42 08/20/16 21:12 08/20/16 22:05 Glucose (Fingerstick) 68mg/dL (70-99) 65mg/dL (70-99) 49mg/dL (70-99) 63mg/dL (70-99) Test 08/20/16 22:53 08/21/16 04:40 08/21/16 07:42 Glucose (Fingerstick) 81mg/dL (70-99) 89mg/dL (70-99) White Blood Count 11.3x10^3/uL (4.0-11.0) Red Blood Count 2.85x10^6/uL (3.50-5.40) Hemoglobin 7.8g/dL (12.0-15.5) Hematocrit 25.1% (36.0-47.0) Mean Corpuscular Volume 88fL (79-100) Mean Corpuscular Hemoglobin 27pg (25-35) Mean Corpuscular Hemoglobin Concent 31g/dL (31-37) Red Cell Distribution Width 16.3% (11.5-14.5) Platelet Count 322x10^3/uL (140-400) Neutrophils (%) (Auto) 70% (31-73) Lymphocytes (%) (Auto) 15% (24-48) Monocytes (%) (Auto) 13% (0-9) Eosinophils (%) (Auto) 2% (0-3) Basophils (%) (Auto) 0% (0-3) Neutrophils # (Auto) 7.9x10^3uL (1.8-7.7) Lymphocytes # (Auto) 1.7x10^3/uL (1.0-4.8) Monocytes # (Auto) 1.4x10^3/uL (0.0-1.1) Eosinophils # (Auto) 0.3x10^3/uL (0.0-0.7) Basophils # (Auto) 0.0x10^3/uL (0.0-0.2) Prothrombin Time 60.8SEC (11.7-14.0) Prothromb Time International Ratio 7.6 (0.8-1.1) Sodium Level 135mmol/L (136-145) Potassium Level 4.4mmol/L (3.5-5.1) Chloride Level 100mmol/L (98-107) Carbon Dioxide Level 27mmol/L (21-32) Anion Gap 8 (6-14) Blood Urea Nitrogen 25mg/dL (7-20) Creatinine 4.7mg/dL (0.6-1.0) Estimated GFR (Cockcroft-Gault) 11.5 Glucose Level 78mg/dL (70-99) Calcium Level 9.2mg/dL (8.5-10.1) Phosphorus Level 3.8mg/dL (2.6-4.7) Magnesium Level 2.0mg/dL (1.8-2.4) Albumin 1.7g/dL (3.4-5.0) Random Vancomycin Level 23.6mcg/mL Objective Assessment Encephalopathy Fever Leukocytosis ESRD Obesity BC + G + cocci Plan Plan of Care vancomycin supportive care remove HD cath check if fistula working DINESH MCINTYRE MD Aug 21, 2016 09:44
--- NOTE | 2016-08-21 10:17 | PDOC ---
Dialysis Progress Note Dialysis Note Dialysis Note Seen on Hemodialysis, tolerating treatment OK so far Vitals at beginning of Hemodialysis: 145/85 83 97.9 General Appearance: More Awake today not Alert Oriented x 0 Neck: No JVD or JVP Chest: CTA Donny Heart: S1 S2 Abdomen - Soft NTND Extremities - No Edema ESRD: Dialysis as below F 180 NR 3.0 Hrs (Pt initially refused to come to HD, and tells us she will not stay for all 3 hrs either) 3 K 2.0 Ca 140 Na 35 HC03 Qb 350 + Qd 500+ Heparin 0 Units Uf 0-1 Kgs or to dry weight as tolerated May give 25-50 gms of 25% Albumin if needed to maintain Hemodynamic stability Treatment plan reviewed and discussed with technical project manager Vitals Vital Signs Vital Signs Date Time Temp Pulse Resp B/P Pulse Ox O2 Delivery O2 Flow Rate FiO2 08/21/16 09:30 Room Air 08/21/16 07:13 97 2.0 08/21/16 07:00 97.9 78 18 120/73 97.9 Labs Last Labs Laboratory Tests Test 08/19/16 10:23 08/19/16 11:41 08/19/16 15:41 08/19/16 17:53 White Blood Count 13.7x10^3/uL (4.0-11.0) Red Blood Count 3.21x10^6/uL (3.50-5.40) Hemoglobin 8.8g/dL (12.0-15.5) Hematocrit 27.5% (36.0-47.0) Mean Corpuscular Volume 86fL (79-100) Mean Corpuscular Hemoglobin 28pg (25-35) Mean Corpuscular Hemoglobin Concent 32g/dL (31-37) Red Cell Distribution Width 16.2% (11.5-14.5) Platelet Count 395x10^3/uL (140-400) Neutrophils (%) (Auto) 64% (31-73) Lymphocytes (%) (Auto) 21% (24-48) Monocytes (%) (Auto) 12% (0-9) Eosinophils (%) (Auto) 2% (0-3) Basophils (%) (Auto) 1% (0-3) Neutrophils # (Auto) 8.7x10^3uL (1.8-7.7) Lymphocytes # (Auto) 2.9x10^3/uL (1.0-4.8) Monocytes # (Auto) 1.6x10^3/uL (0.0-1.1) Eosinophils # (Auto) 0.3x10^3/uL (0.0-0.7) Basophils # (Auto) 0.2x10^3/uL (0.0-0.2) Prothrombin Time 49.4SEC (11.7-14.0) Prothromb Time International Ratio 5.8 (0.8-1.1) Activated Partial Thromboplast Time 75SEC (24-38) Sodium Level 138mmol/L (136-145) Potassium Level 4.6mmol/L (3.5-5.1) Chloride Level 99mmol/L (98-107) Carbon Dioxide Level 33mmol/L (21-32) Anion Gap 6 (6-14) Blood Urea Nitrogen 32mg/dL (7-20) Creatinine 6.2mg/dL (0.6-1.0) Estimated GFR (Cockcroft-Gault) 6.9 Glucose Level 69mg/dL (70-99) Lactic Acid Level 0.8mmol/L (0.4-2.0) Calcium Level 10.7mg/dL (8.5-10.1) Magnesium Level 2.3mg/dL (1.8-2.4) Total Bilirubin 0.4mg/dL (0.2-1.0) Direct Bilirubin 0.2mg/dL (0.0-0.2) Aspartate Amino Transf (AST/SGOT) 25U/L (15-37) Alanine Aminotransferase (ALT/SGPT) 12U/L (14-59) Alkaline Phosphatase 76U/L (46-116) Ammonia 12mcmol/L (11-34) Creatine Kinase 53U/L (26-192) Troponin I Quantitative 0.056ng/mL (0.000-0.055) OS-Mbl-Q-Type Natriuretic Peptide 99749kh/mL (0-124) Total Protein 6.3g/dL (6.4-8.2) Albumin 1.4g/dL (3.4-5.0) Vitamin B12 Level 1334pg/mL (211-946) 25-Hydroxy Vitamin D Total 37.4ng/mL (30.0-100.0) Thyroid Stimulating Hormone (TSH) 1.402uIU/mL (0.358-3.74) Urine Collection Type Unknown Urine Color Yellow Urine Clarity Clear Urine pH 8.0 Urine Specific Wallace 1.015 Urine Protein Tracemg/dL (NEG-TRACE) Urine Glucose (UA) Negativemg/dL (NEG) Urine Ketones (Stick) Negativemg/dL (NEG) Urine Blood Negative (NEG) Urine Nitrite Negative (NEG) Urine Bilirubin Negative (NEG) Urine Urobilinogen Dipstick 0.2mg/dL (0.2 mg/dL) Urine Leukocyte Esterase Trace (NEG) Urine RBC 0/HPF (0-2) Urine WBC 1-4/HPF (0-4) Urine Squamous Epithelial Cells Many/LPF Urine Bacteria 0/HPF (0-FEW) Urine Opiates Screen Neg (NEG) Urine Methadone Screen Neg (NEG) Urine Barbiturates Neg (NEG) Urine Phencyclidine Screen Neg (NEG) Urine Amphetamine/Methamphetamine Neg (NEG) Urine Benzodiazepines Screen Neg (NEG) Urine Cocaine Screen Neg (NEG) Urine Cannabinoids Screen Neg (NEG) Urine Ethyl Alcohol Neg (NEG) Glucose (Fingerstick) 71mg/dL (70-99) 71mg/dL (70-99) Test 08/19/16 21:30 08/20/16 08:30 08/20/16 08:32 08/20/16 11:31 Glucose (Fingerstick) 61mg/dL (70-99) 67mg/dL (70-99) 68mg/dL (70-99) White Blood Count 12.4x10^3/uL (4.0-11.0) Red Blood Count 2.94x10^6/uL (3.50-5.40) Hemoglobin 8.1g/dL (12.0-15.5) Hematocrit 25.6% (36.0-47.0) Mean Corpuscular Volume 87fL (79-100) Mean Corpuscular Hemoglobin 28pg (25-35) Mean Corpuscular Hemoglobin Concent 32g/dL (31-37) Red Cell Distribution Width 16.7% (11.5-14.5) Platelet Count 358x10^3/uL (140-400) Neutrophils (%) (Auto) 73% (31-73) Lymphocytes (%) (Auto) 15% (24-48) Monocytes (%) (Auto) 11% (0-9) Eosinophils (%) (Auto) 1% (0-3) Basophils (%) (Auto) 0% (0-3) Neutrophils # (Auto) 9.0x10^3uL (1.8-7.7) Lymphocytes # (Auto) 1.8x10^3/uL (1.0-4.8) Monocytes # (Auto) 1.4x10^3/uL (0.0-1.1) Eosinophils # (Auto) 0.2x10^3/uL (0.0-0.7) Basophils # (Auto) 0.0x10^3/uL (0.0-0.2) Sodium Level 138mmol/L (136-145) Potassium Level 4.2mmol/L (3.5-5.1) Chloride Level 101mmol/L (98-107) Carbon Dioxide Level 29mmol/L (21-32) Anion Gap 8 (6-14) Blood Urea Nitrogen 17mg/dL (7-20) Creatinine 3.7mg/dL (0.6-1.0) Estimated GFR (Cockcroft-Gault) 15.1 Glucose Level 70mg/dL (70-99) Calcium Level 9.4mg/dL (8.5-10.1) Phosphorus Level 3.1mg/dL (2.6-4.7) Magnesium Level 1.9mg/dL (1.8-2.4) Troponin I Quantitative 0.041ng/mL (0.000-0.055) Albumin 1.9g/dL (3.4-5.0) Test 08/20/16 16:42 08/20/16 21:12 08/20/16 22:05 08/20/16 22:53 Glucose (Fingerstick) 65mg/dL (70-99) 49mg/dL (70-99) 63mg/dL (70-99) 81mg/dL (70-99) Test 08/21/16 04:40 08/21/16 07:42 White Blood Count 11.3x10^3/uL (4.0-11.0) Red Blood Count 2.85x10^6/uL (3.50-5.40) Hemoglobin 7.8g/dL (12.0-15.5) Hematocrit 25.1% (36.0-47.0) Mean Corpuscular Volume 88fL (79-100) Mean Corpuscular Hemoglobin 27pg (25-35) Mean Corpuscular Hemoglobin Concent 31g/dL (31-37) Red Cell Distribution Width 16.3% (11.5-14.5) Platelet Count 322x10^3/uL (140-400) Neutrophils (%) (Auto) 70% (31-73) Lymphocytes (%) (Auto) 15% (24-48) Monocytes (%) (Auto) 13% (0-9) Eosinophils (%) (Auto) 2% (0-3) Basophils (%) (Auto) 0% (0-3) Neutrophils # (Auto) 7.9x10^3uL (1.8-7.7) Lymphocytes # (Auto) 1.7x10^3/uL (1.0-4.8) Monocytes # (Auto) 1.4x10^3/uL (0.0-1.1) Eosinophils # (Auto) 0.3x10^3/uL (0.0-0.7) Basophils # (Auto) 0.0x10^3/uL (0.0-0.2) Prothrombin Time 60.8SEC (11.7-14.0) Prothromb Time International Ratio 7.6 (0.8-1.1) Sodium Level 135mmol/L (136-145) Potassium Level 4.4mmol/L (3.5-5.1) Chloride Level 100mmol/L (98-107) Carbon Dioxide Level 27mmol/L (21-32) Anion Gap 8 (6-14) Blood Urea Nitrogen 25mg/dL (7-20) Creatinine 4.7mg/dL (0.6-1.0) Estimated GFR (Cockcroft-Gault) 11.5 Glucose Level 78mg/dL (70-99) Calcium Level 9.2mg/dL (8.5-10.1) Phosphorus Level 3.8mg/dL (2.6-4.7) Magnesium Level 2.0mg/dL (1.8-2.4) Albumin 1.7g/dL (3.4-5.0) Random Vancomycin Level 23.6mcg/mL Glucose (Fingerstick) 89mg/dL (70-99) Laboratory Tests Test 08/20/16 11:31 08/20/16 16:42 08/20/16 21:12 08/20/16 22:05 Glucose (Fingerstick) 68mg/dL (70-99) 65mg/dL (70-99) 49mg/dL (70-99) 63mg/dL (70-99) Test 08/20/16 22:53 08/21/16 04:40 08/21/16 07:42 Glucose (Fingerstick) 81mg/dL (70-99) 89mg/dL (70-99) White Blood Count 11.3x10^3/uL (4.0-11.0) Red Blood Count 2.85x10^6/uL (3.50-5.40) Hemoglobin 7.8g/dL (12.0-15.5) Hematocrit 25.1% (36.0-47.0) Mean Corpuscular Volume 88fL (79-100) Mean Corpuscular Hemoglobin 27pg (25-35) Mean Corpuscular Hemoglobin Concent 31g/dL (31-37) Red Cell Distribution Width 16.3% (11.5-14.5) Platelet Count 322x10^3/uL (140-400) Neutrophils (%) (Auto) 70% (31-73) Lymphocytes (%) (Auto) 15% (24-48) Monocytes (%) (Auto) 13% (0-9) Eosinophils (%) (Auto) 2% (0-3) Basophils (%) (Auto) 0% (0-3) Neutrophils # (Auto) 7.9x10^3uL (1.8-7.7) Lymphocytes # (Auto) 1.7x10^3/uL (1.0-4.8) Monocytes # (Auto) 1.4x10^3/uL (0.0-1.1) Eosinophils # (Auto) 0.3x10^3/uL (0.0-0.7) Basophils # (Auto) 0.0x10^3/uL (0.0-0.2) Prothrombin Time 60.8SEC (11.7-14.0) Prothromb Time International Ratio 7.6 (0.8-1.1) Sodium Level 135mmol/L (136-145) Potassium Level 4.4mmol/L (3.5-5.1) Chloride Level 100mmol/L (98-107) Carbon Dioxide Level 27mmol/L (21-32) Anion Gap 8 (6-14) Blood Urea Nitrogen 25mg/dL (7-20) Creatinine 4.7mg/dL (0.6-1.0) Estimated GFR (Cockcroft-Gault) 11.5 Glucose Level 78mg/dL (70-99) Calcium Level 9.2mg/dL (8.5-10.1) Phosphorus Level 3.8mg/dL (2.6-4.7) Magnesium Level 2.0mg/dL (1.8-2.4) Albumin 1.7g/dL (3.4-5.0) Random Vancomycin Level 23.6mcg/mL Assessment Assessment Problems Medical Problems: (1) Altered mental status Status: Acute (2) Elevated INR (international normalized ratio) due to prior anticoagulant medication ingestion Status: Acute (3) Elevated troponin Status: Acute (4) ESRD on dialysis Status: Acute (5) Mental status change Status: Acute Problems: Plan Plan of Care Problems Medical Problems: (1) Altered mental status Status: Acute (2) Elevated INR (international normalized ratio) due to prior anticoagulant medication ingestion Status: Acute (3) Elevated troponin Status: Acute (4) ESRD on dialysis Status: Acute (5) Mental status change Status: Acute HERMELINDA MCINTYRE MD Aug 21, 2016 10:17
[2016-08-21] MEDS ORDERED: DIPHENHYDRAMINE 50 MG/ML VIAL IV PRN ×2 (10:30)
[2016-08-21] MEDS ORDERED: IV NORMAL SALINE 1000ML BAG 1,000 ML IV PRN (10:30)
[2016-08-21] MEDS ORDERED: DIALYSIS PATIENT. MC PRN ×2 (10:30)
[2016-08-21] MEDS ORDERED: 0.9 % SODIUM CHLORIDE 10 ML DISP.SYRIN. IV PRN ×2 (10:30)
[2016-08-21 11:22] LABS: PTH INTACT 24 pg/mL (15-65)
[2016-08-21] MEDS: VANCOMYCIN PER PHARMACY MC PRN (13:23)
[2016-08-21 14:50] VITALS: BP 135/82
[2016-08-21] MEDS ORDERED: WARFARIN 1 MG TABLET. PO SCH (16:00)
[2016-08-21] MEDS: OXYCODONE/APAP 10/325 TABLET. PO PRN (17:04)
--- NOTE | 2016-08-21 18:53 | PDOC ---
PROGRESS NOTES Assessment Assessment 08-20-16 MS changes. Metabolic encephalopathy. ESRD on dialysis. DM HTN CHF Cardiomegaly COPD GERD HCV Gout Morbid obesity. RECOMMENDATIONS/PLAN: Repeat HCT on 08/20 Treat medical diseases. OT/PT. EEG: diffuse encephalopathy. HISTORY OF THE PRESENT ILLNESS: 61-y-old AA female with above medical diseases has been having MS changes, lethargy, decreased response for admission. No focalized sensory or motor deficits noted. PAST MEDICAL HISTORY: Please see above. PAST SURGERY HISTORY: No major surgery recently. ALLERGY: Erythromycin Neurontin Morphine MEDICATIONS: Refer to [facility] FAMILY HISTORY: Non contributory. SOCIAL HISTORY: Lives in nursing facility. Denies smoking, drinking, and illicit drug use. REVIEW OF SYSTEMS: Constitutional: No malnutrition, weight loss, cachexia. Head: No traumatic brain or head injury. Skin: No edema, or rash. Ear: No infection, tinnitus. Eyes: No vision loss or color blindness. Nose: No bleeding or purulent discharges. Hearing: Mild hearing decrease. Neck: No injury. Breast: No history of cancer, masses,or discharges. Cardiac: CAD, HTN, HLD. Pulmonary: COPD. GI: GERD. Urinary/genital: ESRD on dialysis. Endocrinologic: Diabetes Mellitus, morbid obesity. Skeletomuscular: Generalized weakness. Neurological: see HP. Psychiatric: Denies drug use/abuse. Otherwise, not [id number] review of systems. PHYSICAL EXAMINATION: General appearance is in subacute distress. HEENT: Normocephalic and nontraumatic. Eyes, nose, ears, and throat are unremarkable. Neck is supple. No lymphadenopathy. No crepitus. Cardiovascular: S1, S2, regular rate and rhythm. Pulmonary: Clear to auscultation bilaterally. Abdomen: Bowel sounds are positive. Extremities: No rash, lesions, or edema. No restriction of range of motion NEUROLOGICAL EXAMINATION: Sleepiness but arousable. Not fully oriented to time, place and person. PERRL. EOMI. CN: no focal findings. Muscle tone: within normal. Muscle strength: 4 UE, 4- LE DTR: 1 Plantar reflex: Flexor response bilaterally Gait: not examined in bed. Sensory exam: no abnormal findings. No obvious cerebellar signs elicited. F-T-N test fine. Objective Objective Vital Signs Date Time Temp Pulse Resp B/P Pulse Ox O2 Delivery O2 Flow Rate FiO2 08/21/16 17:04 Room Air 08/21/16 14:50 99.5 90 16 135/82 98 99.5 08/21/16 07:13 2.0 Intake and Output 08/21/16 07:00 Intake Total 100 ml Output Total 0 ml Balance 100 ml Intake Oral 100 ml Output Urine Total 0 ml Vitals Signs Vitals VS - Last 72 Hours, by Label Date Time Temp Pulse Resp B/P Pulse Ox O2 Delivery O2 Flow Rate FiO2 08/21/16 17:04 Room Air 08/21/16 15:16 Room Air 08/21/16 14:50 99.5 90 16 135/82 98 Room Air 99.5 08/21/16 11:08 97 Room Air 08/21/16 09:30 Room Air 08/21/16 08:00 Room Air 08/21/16 07:13 97 Nasal Cannula 2.0 08/21/16 07:00 97.9 78 18 120/73 96 Room Air 97.9 08/21/16 03:00 98.3 79 20 102/65 97 Nasal Cannula 2.0 98.3 08/21/16 01:27 20 Nasal Cannula 08/20/16 23:00 98.3 75 20 108/71 98 Room Air 98.3 08/20/16 21:27 20 Nasal Cannula 08/20/16 20:40 100 Nasal Cannula 2.0 08/20/16 20:00 Nasal Cannula 2.0 08/20/16 19:00 98.0 77 20 122/88 100 Room Air 98.0 08/20/16 17:23 79 122/65 08/20/16 16:42 Nasal Cannula 2.0 08/20/16 15:42 Nasal Cannula 2.0 08/20/16 15:36 98 Nasal Cannula 2.0 08/20/16 15:00 98.9 79 18 122/65 98 Nasal Cannula 2.0 98.9 08/20/16 11:17 98.7 77 18 133/80 91 Nasal Cannula 2.0 98.7 08/20/16 08:15 Nasal Cannula 2.0 08/20/16 07:00 98.9 80 18 138/86 97 Nasal Cannula 2.0 98.9 Laboratory Laboratory Laboratory Tests Test 08/20/16 19:56 08/20/16 21:12 08/20/16 22:05 08/20/16 22:53 Nasal Screen MRSA (PCR) Negative (Negative) Glucose (Fingerstick) 49mg/dL (70-99) 63mg/dL (70-99) 81mg/dL (70-99) Test 08/21/16 04:40 08/21/16 07:42 08/21/16 16:33 White Blood Count 11.3x10^3/uL (4.0-11.0) Red Blood Count 2.85x10^6/uL (3.50-5.40) Hemoglobin 7.8g/dL (12.0-15.5) Hematocrit 25.1% (36.0-47.0) Mean Corpuscular Volume 88fL (79-100) Mean Corpuscular Hemoglobin 27pg (25-35) Mean Corpuscular Hemoglobin Concent 31g/dL (31-37) Red Cell Distribution Width 16.3% (11.5-14.5) Platelet Count 322x10^3/uL (140-400) Neutrophils (%) (Auto) 70% (31-73) Lymphocytes (%) (Auto) 15% (24-48) Monocytes (%) (Auto) 13% (0-9) Eosinophils (%) (Auto) 2% (0-3) Basophils (%) (Auto) 0% (0-3) Neutrophils # (Auto) 7.9x10^3uL (1.8-7.7) Lymphocytes # (Auto) 1.7x10^3/uL (1.0-4.8) Monocytes # (Auto) 1.4x10^3/uL (0.0-1.1) Eosinophils # (Auto) 0.3x10^3/uL (0.0-0.7) Basophils # (Auto) 0.0x10^3/uL (0.0-0.2) Prothrombin Time 60.8SEC (11.7-14.0) Prothromb Time International Ratio 7.6 (0.8-1.1) Sodium Level 135mmol/L (136-145) Potassium Level 4.4mmol/L (3.5-5.1) Chloride Level 100mmol/L (98-107) Carbon Dioxide Level 27mmol/L (21-32) Anion Gap 8 (6-14) Blood Urea Nitrogen 25mg/dL (7-20) Creatinine 4.7mg/dL (0.6-1.0) Estimated GFR (Cockcroft-Gault) 11.5 Glucose Level 78mg/dL (70-99) Calcium Level 9.2mg/dL (8.5-10.1) Phosphorus Level 3.8mg/dL (2.6-4.7) Magnesium Level 2.0mg/dL (1.8-2.4) Albumin 1.7g/dL (3.4-5.0) Random Vancomycin Level 23.6mcg/mL Glucose (Fingerstick) 89mg/dL (70-99) 87mg/dL (70-99) Microbiology 08/19/16 Blood Culture - Final, Complete 08/19/16 Urine Culture - Final, Complete 08/19/16 Urine Culture Result 1 (CONNOR) - Final, Complete Medication Medications Current Medications Budesonide (Pulmicort) 0.5 mg RTBID NEB Last administered on 08/21/16 07:19; Start 08/20/16 at 20:00 Diphenhydramine HCl (Benadryl) 25 mg 1X PRN PRN IV ITCHING; Start 08/21/16 at 10 :30; Stop 08/22/16 at 10:29 Diphenhydramine HCl (Benadryl) 25 mg 1X PRN PRN IV ITCHING; Start 08/21/16 at 10 :30; Stop 08/22/16 at 10:29 Info (PHARMACY MONITORING -- do not chart) 1 each PRN DAILY PRN MC SEE COMMENTS ; Start 08/21/16 at 10:30; Status UNV Info (PHARMACY MONITORING -- do not chart) 1 each PRN DAILY PRN MC SEE COMMENTS ; Start 08/21/16 at 10:30; Status UNV Lorazepam 0.5 mg 0.5 mg 1X ONCE IV Last administered on 08/21/16 09:28; Start 08/21/16 at 09:30; Stop 08/21/16 at 09:31; Status DC Nortriptyline HCl (Pamelor) 25 mg QHS PO Last administered on 08/20/16 21:27; Start 08/20/16 at 21:00 Oxycodone HCl (Oxycontin) 10 mg BID PO Last administered on 2/1/17at 09:30; Start 08/20/16 at 21:00 Pamidronate Disodium/Sodium Chloride (Aredia/Iv Sodium Chloride 0.9% 250ml) 250 ml @ 83.333 mls/ hr 1X ONCE IV Last administered on 08/21/16t 13:24; Start 08/21/16 at 09:00; Stop 08/21/16 at 11:59; Status DC Phytonadione 2.5 mg 2.5 mg 1X ONCE PO Last administered on 08/21/16t 08:20; Start 08/21/16 at 08:00; Stop 08/21/16 at 08:01; Status DC Sennosides (Senna) 8.6 mg BID PO ; Start 08/20/16 at 21:00 Sodium Chloride (Iv Sodium Chloride 0.9% 1000ml Bag) 1,000 ml @ 1,000 mls/hr Q1H PRN IV hypotension; Start 08/21/16 at 10:30; Stop 08/21/16 at 16:29; Status DC Sodium Chloride (Normal Saline Flush) 10 ml 1X PRN PRN IV AP catheter pack; Start 08/21/16 at 10:30; Stop 08/22/16 at 10:29 Sodium Chloride (Normal Saline Flush) 10 ml 1X PRN PRN IV [employer] catheter pack; Start 08/21/16 at 10:30; Stop 08/22/16 at 10:29 Vancomycin HCl 1 each 1X ONCE MC ; Start 08/21/16 at 05:00; Stop 08/21/16 at 05: 01; Status DC Vancomycin HCl 1 each 1X ONCE MC ; Start 08/22/16 at 06:00; Stop 08/22/16 at 06: 01 Warfarin Sodium (Coumadin) 1.5 mg DAILY16 PO ; Start 08/21/16 at 16:00; Status Cancel Comment Review of Relevant I have reviewed the following items christi (where applicable) has been applied. TENISHA BLAKELY MD Aug 21, 2016 18:53
--- NOTE | 2016-08-21 18:56 | PDOC ---
PROGRESS NOTES Assessment Assessment Metabolic encephalopathy. ESRD on dialysis. DM HTN CHF Cardiomegaly COPD GERD HCV Gout Morbid obesity. RECOMMENDATIONS/PLAN: Treat medical diseases. OT/PT. EEG on 08/20/16: diffuse encephalopathy. Repeat HCT on 08/20: No acute findings. HISTORY OF THE PRESENT ILLNESS: 61-y-old AA female with above medical diseases has been having MS changes, lethargy, decreased response for admission. No focalized sensory or motor deficits noted. PAST MEDICAL HISTORY: Please see above. PAST SURGERY HISTORY: No major surgery recently. ALLERGY: Erythromycin Neurontin Morphine MEDICATIONS: Refer to [facility] FAMILY HISTORY: Non contributory. SOCIAL HISTORY: Lives in nursing facility. Denies smoking, drinking, and illicit drug use. REVIEW OF SYSTEMS: Constitutional: No malnutrition, weight loss, cachexia. Head: No traumatic brain or head injury. Skin: No edema, or rash. Ear: No infection, tinnitus. Eyes: No vision loss or color blindness. Nose: No bleeding or purulent discharges. Hearing: Mild hearing decrease. Neck: No injury. Breast: No history of cancer, masses,or discharges. Cardiac: CAD, HTN, HLD. Pulmonary: COPD. GI: GERD. Urinary/genital: ESRD on dialysis. Endocrinologic: Diabetes Mellitus, morbid obesity. Skeletomuscular: Generalized weakness. Neurological: see HP. Psychiatric: Denies drug use/abuse. Otherwise, not [id number] review of systems. PHYSICAL EXAMINATION: General appearance is in subacute distress. HEENT: Normocephalic and nontraumatic. Eyes, nose, ears, and throat are unremarkable. Neck is supple. No lymphadenopathy. No crepitus. Cardiovascular: S1, S2, regular rate and rhythm. Pulmonary: Clear to auscultation bilaterally. Abdomen: Bowel sounds are positive. Extremities: No rash, lesions, or edema. No restriction of range of motion NEUROLOGICAL EXAMINATION: Awake. Able to answer some questions and follow a few commands. Not fully oriented to time, place and person. PERRL. EOMI. CN: no focal findings. Muscle tone: within normal. Muscle strength: 4 UE, 4- LE DTR: 1 Plantar reflex: Flexor response bilaterally Gait: not examined in bed. Sensory exam: no abnormal findings. No obvious cerebellar signs elicited. F-T-N test fine. Objective Objective Vital Signs Date Time Temp Pulse Resp B/P Pulse Ox O2 Delivery O2 Flow Rate FiO2 2/1/17 17:04 Room Air 08/21/16 14:50 99.5 90 16 135/82 98 99.5 08/21/16 07:13 2.0 Intake and Output 08/21/16 07:00 Intake Total 100 ml Output Total 0 ml Balance 100 ml Intake Oral 100 ml Output Urine Total 0 ml Vitals Signs Vitals VS - Last 72 Hours, by Label Date Time Temp Pulse Resp B/P Pulse Ox O2 Delivery O2 Flow Rate FiO2 08/21/16 17:04 Room Air 08/21/16 15:16 Room Air 08/21/16 14:50 99.5 90 16 135/82 98 Room Air 99.5 08/21/16 11:08 97 Room Air 08/21/16 09:30 Room Air 08/21/16 08:00 Room Air 08/21/16 07:13 97 Nasal Cannula 2.0 08/21/16 07:00 97.9 78 18 120/73 96 Room Air 97.9 08/21/16 03:00 98.3 79 20 102/65 97 Nasal Cannula 2.0 98.3 08/21/16 01:27 20 Nasal Cannula 08/20/16 23:00 98.3 75 20 108/71 98 Room Air 98.3 08/20/16 21:27 20 Nasal Cannula 08/20/16 20:40 100 Nasal Cannula 2.0 08/20/16 20:00 Nasal Cannula 2.0 08/20/16 19:00 98.0 77 20 122/88 100 Room Air 98.0 08/20/16 17:23 79 122/65 08/20/16 16:42 Nasal Cannula 2.0 08/20/16 15:42 Nasal Cannula 2.0 08/20/16 15:36 98 Nasal Cannula 2.0 08/20/16 15:00 98.9 79 18 122/65 98 Nasal Cannula 2.0 98.9 08/20/16 11:17 98.7 77 18 133/80 91 Nasal Cannula 2.0 98.7 08/20/16 08:15 Nasal Cannula 2.0 08/20/16 07:00 98.9 80 18 138/86 97 Nasal Cannula 2.0 98.9 Laboratory Laboratory Laboratory Tests Test 08/20/16 19:56 08/20/16 21:12 08/20/16 22:05 08/20/16 22:53 Nasal Screen MRSA (PCR) Negative (Negative) Glucose (Fingerstick) 49mg/dL (70-99) 63mg/dL (70-99) 81mg/dL (70-99) Test 08/21/16 04:40 08/21/16 07:42 08/21/16 16:33 White Blood Count 11.3x10^3/uL (4.0-11.0) Red Blood Count 2.85x10^6/uL (3.50-5.40) Hemoglobin 7.8g/dL (12.0-15.5) Hematocrit 25.1% (36.0-47.0) Mean Corpuscular Volume 88fL (79-100) Mean Corpuscular Hemoglobin 27pg (25-35) Mean Corpuscular Hemoglobin Concent 31g/dL (31-37) Red Cell Distribution Width 16.3% (11.5-14.5) Platelet Count 322x10^3/uL (140-400) Neutrophils (%) (Auto) 70% (31-73) Lymphocytes (%) (Auto) 15% (24-48) Monocytes (%) (Auto) 13% (0-9) Eosinophils (%) (Auto) 2% (0-3) Basophils (%) (Auto) 0% (0-3) Neutrophils # (Auto) 7.9x10^3uL (1.8-7.7) Lymphocytes # (Auto) 1.7x10^3/uL (1.0-4.8) Monocytes # (Auto) 1.4x10^3/uL (0.0-1.1) Eosinophils # (Auto) 0.3x10^3/uL (0.0-0.7) Basophils # (Auto) 0.0x10^3/uL (0.0-0.2) Prothrombin Time 60.8SEC (11.7-14.0) Prothromb Time International Ratio 7.6 (0.8-1.1) Sodium Level 135mmol/L (136-145) Potassium Level 4.4mmol/L (3.5-5.1) Chloride Level 100mmol/L (98-107) Carbon Dioxide Level 27mmol/L (21-32) Anion Gap 8 (6-14) Blood Urea Nitrogen 25mg/dL (7-20) Creatinine 4.7mg/dL (0.6-1.0) Estimated GFR (Cockcroft-Gault) 11.5 Glucose Level 78mg/dL (70-99) Calcium Level 9.2mg/dL (8.5-10.1) Phosphorus Level 3.8mg/dL (2.6-4.7) Magnesium Level 2.0mg/dL (1.8-2.4) Albumin 1.7g/dL (3.4-5.0) Random Vancomycin Level 23.6mcg/mL Glucose (Fingerstick) 89mg/dL (70-99) 87mg/dL (70-99) Microbiology 08/19/16 Blood Culture - Final, Complete 08/19/16 Urine Culture - Final, Complete 08/19/16 Urine Culture Result 1 (CONNOR) - Final, Complete Medication Medications Current Medications Budesonide (Pulmicort) 0.5 mg RTBID NEB Last administered on 08/21/16 07:19; Start 08/20/16 at 20:00 Diphenhydramine HCl (Benadryl) 25 mg 1X PRN PRN IV ITCHING; Start 08/21/16 at 10 :30; Stop 08/22/16 at 10:29 Diphenhydramine HCl (Benadryl) 25 mg 1X PRN PRN IV ITCHING; Start 08/21/16 at 10 :30; Stop 08/22/16 at 10:29 Info (PHARMACY MONITORING -- do not chart) 1 each PRN DAILY PRN MC SEE COMMENTS ; Start 08/21/16 at 10:30; Status UNV Info (PHARMACY MONITORING -- do not chart) 1 each PRN DAILY PRN MC SEE COMMENTS ; Start 08/21/16 at 10:30; Status UNV Lorazepam 0.5 mg 0.5 mg 1X ONCE IV Last administered on 08/21/16 09:28; Start 08/21/16 at 09:30; Stop 08/21/16 at 09:31; Status DC Nortriptyline HCl (Pamelor) 25 mg QHS PO Last administered on 08/20/16 21:27; Start 08/20/16 at 21:00 Oxycodone HCl (Oxycontin) 10 mg BID PO Last administered on 08/21/16 09:30; Start 08/20/16 at 21:00 Pamidronate Disodium/Sodium Chloride (Aredia/Iv Sodium Chloride 0.9% 250ml) 250 ml @ 83.333 mls/ hr 1X ONCE IV Last administered on 08/21/16 13:24; Start 08/21/16 at 09:00; Stop 08/21/16 at 11:59; Status DC Phytonadione 2.5 mg 2.5 mg 1X ONCE PO Last administered on 08/21/16 08:20; Start 08/21/16 at 08:00; Stop 08/21/16 at 08:01; Status DC Sennosides (Senna) 8.6 mg BID PO ; Start 08/20/16 at 21:00 Sodium Chloride (Iv Sodium Chloride 0.9% 1000ml Bag) 1,000 ml @ 1,000 mls/hr Q1H PRN IV hypotension; Start 08/21/16 at 10:30; Stop 08/21/16 at 16:29; Status DC Sodium Chloride (Normal Saline Flush) 10 ml 1X PRN PRN IV AP catheter pack; Start 08/21/16 at 10:30; Stop 08/22/16 at 10:29 Sodium Chloride (Normal Saline Flush) 10 ml 1X PRN PRN IV MINUTE CLERK catheter pack; Start 08/21/16 at 10:30; Stop 08/22/16 at 10:29 Vancomycin HCl 1 each 1X ONCE MC ; Start 08/21/16 at 05:00; Stop 08/21/16 at 05: 01; Status DC Vancomycin HCl 1 each 1X ONCE MC ; Start 08/22/16 at 06:00; Stop 08/22/16 at 06: 01 Warfarin Sodium (Coumadin) 1.5 mg DAILY16 PO ; Start 08/21/16 at 16:00; Status Cancel Comment Review of Relevant I have reviewed the following items christi (where applicable) has been applied. TENISHA BLAKELY MD Aug 21, 2016 18:56
[2016-08-21 19:00] VITALS: BP 144/95
[2016-08-21] MEDS: NORTRIPTYLINE 25 MG CAPSULE PO SCH (20:41)
[2016-08-21 22:42] VITALS: BP 147/99
[2016-08-22 02:55] VITALS: BP 140/90
--- NOTE | 2016-08-22 03:17 | CONS ---
DATE OF CONSULTATION: 08/21/2016 REQUESTING PHYSICIAN: Dr. Johnson REASON FOR CONSULTATION: Sepsis and blood culture positive. HISTORY OF PRESENT ILLNESS: This is a 61-year-old -[place] female who is with morbid obesity, who is on dialysis, who presented with a change in mental status from nursing facility. The patient had fever, leukocytosis and now the blood culture is positive, four out of six positive with Gram-positive cocci in clusters. The patient has been receiving vancomycin. The patient also has hypercalcemia. The patient is still confused and not able to provide all the information appropriately. No nausea, vomiting, diarrhea noted by nursing. PAST MEDICAL HISTORY: Positive for end-stage renal disease, on hemodialysis. The patient recently had a fistula creation done in the left antecubital fossa and at least she remembers saying that it is not ready yet for use and she has a tunnel catheter in the right upper chest. Also has diabetes, hypertension, obesity, hepatitis C, congestive heart failure and COPD. SOCIAL HISTORY: Negative for smoking, alcohol, illicit drug use. ALLERGIES: Listed as allergic to erythromycin, gabapentin and morphine. CURRENT MEDICATIONS: Reviewed. The patient is on vancomycin. REVIEW OF SYSTEMS: As per HPI, all other systems reviewed and are negative. PHYSICAL EXAMINATION: GENERAL: Alert but not oriented female, not in distress. The patient is able to answer simple questions, but memory is poor right now. VITAL SIGNS: Stable, afebrile. HEENT: NAD. NECK: Supple, no JVP, no lymphadenopathy. LUNGS: Clear. HEART: S1, S2, regular. ABDOMEN: Soft and nontender. No organomegaly appreciated. EXTREMITIES: No edema or cyanosis. SKIN: Unremarkable. There are no peripheral stigmata for endocarditis at this age. LABORATORY DATA: White count is 11.3, BUN 32, creatinine 6.2, calcium is down to 9.2, albumin is 1.7. Urinalysis is unremarkable. Drug screen is negative. Blood cultures positive, Gram-positive cocci in clusters, further ID pending. IMAGING STUDIES: CT of the head was unremarkable for any acute changes. Chest x-ray was showing cardiomegaly and vascular congestion. Abdominal CT was unremarkable. IMPRESSION: 1. Gram-positive cocci in clusters, further ID pending, most likely from hemodialysis catheter. There is no other obvious source. 2. Encephalopathy. 3. Fever and leukocytosis. 4. End-stage renal disease, on hemodialysis. 5. Hypercalcemia. 6. Diabetes. 7. Hypertension. 8. Obesity. RECOMMENDATIONS: I would continue with vancomycin for the time being. Supportive care. Once final ID of the organism is available, then we will have further recommendations. Discussion with Dr. Johnson is done. Thank you very much, Dr. Johnson for giving me the opportunity to participate in this patient's care. DINESH MCINTYRE MD DR: KORI/leha JOB#: [id number] / [id number]
[2016-08-22 04:42] LABS: BASO # 0.1 x10^3/uL (0.0-0.2); BASO % 1 % (0-3); EOS % 2 % (0-3); HEMATOCRIT 24.7 % (36.0-47.0); HEMOGLOBIN 7.8 g/dL (12.0-15.5); LYMPH # 2.1 x10^3/uL (1.0-4.8); LYMPH % 17 % (24-48); MEAN CORPUSCULAR HEMOGLOBIN 27 pg (25-35); MEAN CORPUSCULAR HGB CONC 32 g/dL (31-37); MEAN CORPUSCULAR VOLUME 86 fL (79-100); MONO % 13 % (0-9); NEUT % 68 % (31-73); PLATELET COUNT 330 x10^3/uL (140-400); RED BLOOD COUNT 2.86 x10^6/uL (3.50-5.40); RED CELL DISTRIBUTION WIDTH 16.2 % (11.5-14.5); WHITE BLOOD COUNT 12.4 x10^3/uL (4.0-11.0)
[2016-08-22 05:00] LABS: ALBUMIN 1.6 g/dL (3.4-5.0); CALCIUM 8.9 mg/dL (8.5-10.1); CREATININE 3.5 mg/dL (0.6-1.0); GFR 16.1; PHOSPHORUS 2.9 mg/dL (2.6-4.7); POTASSIUM 3.8 mmol/L (3.5-5.1)
[2016-08-22] MEDS ORDERED: VANCOMYCIN RANDOM LEVEL. MC ONE (06:00)
[2016-08-22] MEDS: VANCOMYCIN PER PHARMACY MC PRN ×2 (06:09→09:30)
[2016-08-22] MEDS ORDERED: VANCOMYCIN 1.75 GM in IV NORMAL SALINE 500ML BAG 500 ML IV ONE (07:00)
[2016-08-22 07:15] VITALS: BP 147/98
[2016-08-22] MEDS: LIDOCAINE (700MG/PATCH) PATCH. TP SCH (07:43)
[2016-08-22] MEDS: CARVEDILOL 12.5 MG TABLET PO SCH ×2 (07:44→16:36)
[2016-08-22] MEDS: SERTRALINE 50 MG TABLET. PO SCH (07:44)
[2016-08-22] MEDS: ALLOPURINOL 100 MG TABLET. PO SCH (07:44)
[2016-08-22] MEDS: OXYCODONE ER 10 MG TAB.ER.12H. PO SCH ×2 (07:44→21:13)
[2016-08-22] MEDS: SENNOSIDES 8.6 MG TABLET PO SCH ×2 (07:45→21:13)
[2016-08-22] MEDS: IPRATRPIUM/ALBUTEROL 0.5/2.5MG 3 ML NEBU. NEB SCH ×4 (07:53→19:23)
[2016-08-22] MEDS: ASPIRIN 81 MG TAB.CHEW PO SCH (07:53)
[2016-08-22] MEDS: POLYETHYLENE GLYCOL 3350 17 GM PACKET. PO SCH (07:53)
[2016-08-22] MEDS: GABAPENTIN 300 MG CAPSULE. PO SCH ×3 (07:53→21:13)
[2016-08-22] MEDS: BUDESONIDE 0.5 MG/2 ML NEBU NEB SCH ×2 (07:54→19:23)
--- NOTE | 2016-08-22 08:22 | PDOC ---
Infectious Disease Note Subjective Subjective awake, more appropriate ROS ROS GEN: Denies fevers, chills, sweats HEENT: Denies blurred vision, sore throat CV: Denies chest pain RESP: Denies shortness of air, cough GI: Denies n/v/d NEURO: Denies confusion, dizziness MSK: Denies weakness, joint pain/swelling Vital Sign Vital Signs Vital Signs Date Time Temp Pulse Resp B/P Pulse Ox O2 Delivery O2 Flow Rate FiO2 08/22/16 07:52 98 Room Air 08/22/16 07:44 85 147/98 08/22/16 07:15 97.5 20 97.5 08/22/16 00:42 2.0 Physical Exam PHYSICAL EXAM GENERAL: NAD, Alert HEENT: PERRL, OC/OP NECK: Supple, no JVD, no LN LUNGS: Clear HEART: S1S2, no gallop, no murmur ABD: Soft, NT, no organomegaly, no rebound EXT: No edema, no cyanosis ICU STAFF NURSE: Alert, oriented x 3, no focal neurologic deficit SKIN: No rash IV: ok Labs Lab Laboratory Tests Test 08/21/16 11:15 08/21/16 16:33 08/21/16 20:22 08/22/16 04:30 Hepatitis B Surface Antigen Negative (Negative) Glucose (Fingerstick) 87mg/dL (70-99) 87mg/dL (70-99) White Blood Count 12.4x10^3/uL (4.0-11.0) Red Blood Count 2.86x10^6/uL (3.50-5.40) Hemoglobin 7.8g/dL (12.0-15.5) Hematocrit 24.7% (36.0-47.0) Mean Corpuscular Volume 86fL (79-100) Mean Corpuscular Hemoglobin 27pg (25-35) Mean Corpuscular Hemoglobin Concent 32g/dL (31-37) Red Cell Distribution Width 16.2% (11.5-14.5) Platelet Count 330x10^3/uL (140-400) Neutrophils (%) (Auto) 68% (31-73) Lymphocytes (%) (Auto) 17% (24-48) Monocytes (%) (Auto) 13% (0-9) Eosinophils (%) (Auto) 2% (0-3) Basophils (%) (Auto) 1% (0-3) Neutrophils # (Auto) 8.5x10^3uL (1.8-7.7) Lymphocytes # (Auto) 2.1x10^3/uL (1.0-4.8) Monocytes # (Auto) 1.6x10^3/uL (0.0-1.1) Eosinophils # (Auto) 0.2x10^3/uL (0.0-0.7) Basophils # (Auto) 0.1x10^3/uL (0.0-0.2) Sodium Level 140mmol/L (136-145) Potassium Level 3.8mmol/L (3.5-5.1) Chloride Level 103mmol/L (98-107) Carbon Dioxide Level 29mmol/L (21-32) Anion Gap 8 (6-14) Blood Urea Nitrogen 18mg/dL (7-20) Creatinine 3.5mg/dL (0.6-1.0) Estimated GFR (Cockcroft-Gault) 16.1 Glucose Level 84mg/dL (70-99) Calcium Level 8.9mg/dL (8.5-10.1) Phosphorus Level 2.9mg/dL (2.6-4.7) Magnesium Level 1.8mg/dL (1.8-2.4) Albumin 1.6g/dL (3.4-5.0) Random Vancomycin Level 17.1mcg/mL Test 08/22/16 07:37 Glucose (Fingerstick) 70mg/dL (70-99) Objective Assessment Encephalopathy Fever Leukocytosis ESRD Obesity BC + G + cocci Plan Plan of Care vancomycin supportive care remove HD cath check if fistula working DINESH MCINTYRE MD Aug 22, 2016 08:22
[2016-08-22] MEDS: CALCITONIN,SALMON 400 UNIT/2 ML VIAL. SQ SCH ×2 (08:45→21:00)
--- NOTE | 2016-08-22 10:05 | PDOC ---
SUBJECTIVE ROS ESRD Doing a little better today; more alert and awake CVS: no Orthopnea, no CP RESP: no SOB, no CASAS GI: no Nausea, no Vomiting : no Dysuria, no Urgency OBJECTIVE Vital Signs Vital Signs Date Time Temp Pulse Resp B/P Pulse Ox O2 Delivery O2 Flow Rate FiO2 08/22/16 08:00 Room Air 08/22/16 07:52 98 08/22/16 07:44 85 147/98 08/22/16 07:15 97.5 20 97.5 08/22/16 00:42 2.0 I & 0 Intake and Output 08/22/16 07:00 Intake Total 350 ml Output Total 1 ml Balance 349 ml Intake Oral 100 ml IV Total 250 ml Urine/Stool Mix 1 ml # Voids 1 PHYSICAL EXAM Physical Exam General Appearance: More Awake more Alert Oriented x 2; In no Distress Eyes: VIsion Unchanged Conjunctiva Normal EN: No EN Drainage Mucous Memb. dryish Neck: no JVD no JVP Supple no Thyromegaly; short thick neck CVS: S1 S2 soft Murmur No Gallop No Rub no Edema Resp: no Rales no Rhonchi no Acc. Muscle use GI: BS +ve NO Bruit Min Tender Non Distended : no CVA tenderness; no Suprapubic Tenderness ASSESSMENT/PLAN ESRD: no emergent indication for HD Currently. Next HD in am on MWF Schedule as per OP Previous Fevers - (currently resolved) Bl Cx with GPC,, Staph EPI on cx - Unable to use AVF so will Keep Cath in place. Can Replace if felt to be the sole source of Bacteremia. Now clinically much improved Anemia: Epogen Transfuse with next HD as needed. Hyper TN: Currently well controlled Sev. Hypoalbuminemia - Urine check is -ve for Proteinuria; AMS - Now much improved. Relative Hypercalcemia - better after Miacalcin as ordered COMMENT/RELEVANT DATA Meds Current Medications Medications (Trade) Dose Ordered Sig/César Start Time Stop Time Status Last Admin Dose Admin Acetaminophen (Tylenol) 325 mg PRN Q4HRS PRN 08/20/16 12:15 Acetaminophen 650 mg 650 mg PRN Q4HRS PRN 08/19/16 14:30 08/20/16 14:29 DC Albumin Human (Albuminar) 100 ml @ 100 mls/hr PRN Q30MIN PRN 08/19/16 16:30 08/19/16 17:27 DC 08/19/16 17:26 100 MLS/HR Albuterol Sulfate (Ventolin Neb Soln) 2.5 mg PRN Q4HRS PRN 08/20/16 14:45 Albuterol/ Ipratropium (Duoneb) 3 ml RTQID 08/20/16 16:00 08/22/16 07:53 3 ML Allopurinol (Zyloprim) 100 mg DAILY 08/20/16 13:00 08/22/16 07:44 100 MG Aspirin (Children'S Aspirin) 81 mg DAILY 08/20/16 13:00 Bisacodyl (Dulcolax Supp) 10 mg PRN DAILY PRN 08/20/16 12:15 Budesonide (Pulmicort) 0.5 mg RTBID 08/20/16 20:00 08/22/16 07:54 0.5 MG Calcitonin [place] 400 unit 400 unit BID 08/19/16 21:00 08/20/16 23:30 400 UNIT Carvedilol (Coreg) 25 mg BIDWMEALS 08/20/16 17:00 08/22/16 07:44 25 MG Darbepoetin Ernst (Aranesp) 60 mcg Mo 08/19/16 21:00 08/19/16 22:06 60 MCG Diphenhydramine HCl (Benadryl) 25 mg 1X PRN PRN 08/21/16 10:30 08/22/16 10:29 Fentanyl Citrate (Fentanyl 2ml Vial) 50 mcg PRN Q2HR PRN 08/19/16 14:30 08/20/16 14:29 DC Gabapentin (Neurontin) 300 mg TID 08/20/16 14:00 Info (PHARMACY MONITORING -- do not chart) 1 each PRN DAILY PRN 08/21/16 10:30 UNV Info 1 each 1 each PRN DAILY PRN 08/19/16 16:30 UNV Ipratropium [place] (Atrovent) 0.2 mg QID 08/20/16 13:00 08/20/16 14:42 DC Lidocaine (Lidoderm) 1 patch DAILY 08/20/16 13:00 08/22/16 07:43 1 PATCH Lorazepam 0.5 mg 0.5 mg 1X ONCE 08/21/16 09:30 08/21/16 09:31 DC 08/21/16 09:28 0.5 MG Magnesium Sulfate/ Dextrose (Magnesium Sulfate PREMIX 2GM) 50 ml @ 25 mls/hr PRN DAILY PRN 08/19/16 15:45 Nitroglycerin (Nitrostat) 0.4 mg PRN DAILY PRN 08/20/16 12:15 Nortriptyline HCl (Pamelor) 25 mg QHS 08/20/16 21:00 08/21/16 20:41 25 MG Ondansetron HCl (Zofran Odt) 8 mg PRN Q8HRS PRN 08/20/16 12:30 Ondansetron HCl (Zofran) 4 mg PRN Q8HRS PRN 08/19/16 14:30 08/20/16 14:29 DC Oxycodone HCl (Oxycontin) 10 mg BID 08/20/16 21:00 08/22/16 07:44 10 MG Oxycodone/ Acetaminophen (Percocet 10/325) 1 tab PRN Q6HRS PRN 08/20/16 12:15 08/21/16 17:04 1 TAB Pamidronate Disodium/Sodium Chloride (Aredia/Iv Sodium Chloride 0.9% 250ml) 250 ml @ 83.333 mls/ hr 1X ONCE 08/21/16 09:00 08/21/16 11:59 DC 08/21/16 13:24 83.333 MLS/HR Phytonadione 2.5 mg 2.5 mg 1X ONCE 08/21/16 08:00 08/21/16 08:01 DC 08/21/16 08:20 2.5 MG Polyethylene Glycol (miraLAX PACKET) 17 gm DAILY 08/20/16 13:00 Sennosides (Senna) 8.6 mg BID 08/20/16 21:00 08/22/16 07:45 8.6 MG Sertraline HCl (Zoloft) 100 mg DAILY 08/20/16 13:00 08/22/16 07:44 100 MG Sodium Biphosphate/ Sodium Phosphate (Fleet Adult) 133 ml PRN DAILY PRN 08/20/16 12:15 Sodium Chloride (Iv Sodium Chloride 0.9% 500ml Bag) 500 ml @ 500 mls/hr 1X ONCE 08/19/16 11:00 08/19/16 11:59 DC 08/19/16 11:00 500 MLS/HR Sodium Chloride (Iv Sodium Chloride 0.9% 1000ml Bag) 1,000 ml @ 1,000 mls/hr Q1H PRN 08/21/16 10:30 08/21/16 16:29 DC Sodium Chloride (Normal Saline Flush) 10 ml 1X PRN PRN 08/21/16 10:30 08/22/16 10:29 Vancomycin HCl 1 each 1X ONCE 08/24/16 06:00 08/24/16 06:01 Vancomycin HCl 1 each 1 each 1X ONCE 08/22/16 06:00 08/22/16 06:01 DC Vancomycin HCl 2 gm/Sodium Chloride 500 ml @ 250 mls/hr 1X ONCE 08/19/16 16:30 08/19/16 18:29 DC 08/19/16 22:02 250 MLS/HR Vancomycin HCl/ Sodium Chloride (Iv Sodium Chloride 0.9% 250ml) 250 ml @ 250 mls/hr Q12H 08/20/16 10:45 UNV Vancomycin HCl/ Sodium Chloride (Iv Sodium Chloride 0.9% 500ml Bag) 500 ml @ 250 mls/hr 1X ONCE 08/22/16 07:00 08/22/16 08:59 DC 08/22/16 07:47 250 MLS/HR Warfarin Sodium (Coumadin Per Physician) 1 each PRN DAILY PRN 08/20/16 12:30 08/21/16 14:10 1 EACH Warfarin Sodium (Coumadin) 1.5 mg DAILY16 08/21/16 16:00 Cancel Lab Laboratory Tests Test 08/21/16 11:15 08/21/16 16:33 08/21/16 20:22 08/22/16 04:30 Hepatitis B Surface Antigen Negative (Negative) Glucose (Fingerstick) 87mg/dL (70-99) 87mg/dL (70-99) White Blood Count 12.4x10^3/uL (4.0-11.0) Red Blood Count 2.86x10^6/uL (3.50-5.40) Hemoglobin 7.8g/dL (12.0-15.5) Hematocrit 24.7% (36.0-47.0) Mean Corpuscular Volume 86fL (79-100) Mean Corpuscular Hemoglobin 27pg (25-35) Mean Corpuscular Hemoglobin Concent 32g/dL (31-37) Red Cell Distribution Width 16.2% (11.5-14.5) Platelet Count 330x10^3/uL (140-400) Neutrophils (%) (Auto) 68% (31-73) Lymphocytes (%) (Auto) 17% (24-48) Monocytes (%) (Auto) 13% (0-9) Eosinophils (%) (Auto) 2% (0-3) Basophils (%) (Auto) 1% (0-3) Neutrophils # (Auto) 8.5x10^3uL (1.8-7.7) Lymphocytes # (Auto) 2.1x10^3/uL (1.0-4.8) Monocytes # (Auto) 1.6x10^3/uL (0.0-1.1) Eosinophils # (Auto) 0.2x10^3/uL (0.0-0.7) Basophils # (Auto) 0.1x10^3/uL (0.0-0.2) Sodium Level 140mmol/L (136-145) Potassium Level 3.8mmol/L (3.5-5.1) Chloride Level 103mmol/L (98-107) Carbon Dioxide Level 29mmol/L (21-32) Anion Gap 8 (6-14) Blood Urea Nitrogen 18mg/dL (7-20) Creatinine 3.5mg/dL (0.6-1.0) Estimated GFR (Cockcroft-Gault) 16.1 Glucose Level 84mg/dL (70-99) Calcium Level 8.9mg/dL (8.5-10.1) Phosphorus Level 2.9mg/dL (2.6-4.7) Magnesium Level 1.8mg/dL (1.8-2.4) Albumin 1.6g/dL (3.4-5.0) Random Vancomycin Level 17.1mcg/mL Test 08/22/16 07:37 Glucose (Fingerstick) 70mg/dL (70-99) HERMELINDA MCINTYRE MD Aug 22, 2016 10:05
[2016-08-22 11:15] VITALS: BP 145/88
--- NOTE | 2016-08-22 13:13 | PDOC ---
PROGRESS NOTES Chief Complaint Chief Complaint AMS ASSESSMENT AND PLAN: 1. GPC bacteremia with Sepsis: on vanco. VS now stable. coag neg Staph , but in mult sets. appreciate Dr Taylor's input. ideally, permacath should ve removed, but AV fistula not mature. consider vanco lock 2. AMS: resolved! metabolic encephalopathy from hyper Ca and infect 3. Hypercalcemia: resolving. cont calcitonin. low dose pamidronate x1 yesterday. labs, incl PTH, SPEP etc pending 4. ESRD: HD on // 5. Anemia: mod-severe. chronic. ESRD and inflammation induced. on EPO, iron as per nephrology 6. HCV: on antiviral rx at [place] 7. DM: by report. HgbA1c WNL. stop ISS 8. CAD: no acute issues. minimal troponin elevation 08/22 ESRD. signif elevated pro-BNP at admit, but echo w/o sign of systolic or diastolic dysfxn. + pulm HTN 9. OAC: was on coumadin with supratherapeutic s/p PO vit K yesterday, INR 1.8 today. unclear what rx is for. will try to obtain pertinent records. 10. Depression: on sertraline, low dose ativan PRN 11. Prophylaxis: not indicated with elevated INR 12. Dispo: [facility] back to [facility] tomorrow (?). needs F/U of calcium levels and pending results Vitals Vitals Vital Signs Date Time Temp Pulse Resp B/P Pulse Ox O2 Delivery O2 Flow Rate FiO2 08/22/16 11:40 Room Air 08/22/16 11:15 97.8 81 18 145/88 98 97.8 08/22/16 00:42 2.0 Physical Exam General: Alert, Cooperative, No acute distress Heart: Regular rate Lungs: Clear Abdomen: Normal bowel sounds, Soft, No tenderness, Other (obese abdomen) Extremities: No edema Skin: No rashes Labs LABS Laboratory Tests Test 08/21/16 16:33 08/21/16 20:22 08/22/16 04:30 08/22/16 07:37 Glucose (Fingerstick) 87mg/dL (70-99) 87mg/dL (70-99) 70mg/dL (70-99) White Blood Count 12.4x10^3/uL (4.0-11.0) Red Blood Count 2.86x10^6/uL (3.50-5.40) Hemoglobin 7.8g/dL (12.0-15.5) Hematocrit 24.7% (36.0-47.0) Mean Corpuscular Volume 86fL (79-100) Mean Corpuscular Hemoglobin 27pg (25-35) Mean Corpuscular Hemoglobin Concent 32g/dL (31-37) Red Cell Distribution Width 16.2% (11.5-14.5) Platelet Count 330x10^3/uL (140-400) Neutrophils (%) (Auto) 68% (31-73) Lymphocytes (%) (Auto) 17% (24-48) Monocytes (%) (Auto) 13% (0-9) Eosinophils (%) (Auto) 2% (0-3) Basophils (%) (Auto) 1% (0-3) Neutrophils # (Auto) 8.5x10^3uL (1.8-7.7) Lymphocytes # (Auto) 2.1x10^3/uL (1.0-4.8) Monocytes # (Auto) 1.6x10^3/uL (0.0-1.1) Eosinophils # (Auto) 0.2x10^3/uL (0.0-0.7) Basophils # (Auto) 0.1x10^3/uL (0.0-0.2) Sodium Level 140mmol/L (136-145) Potassium Level 3.8mmol/L (3.5-5.1) Chloride Level 103mmol/L (98-107) Carbon Dioxide Level 29mmol/L (21-32) Anion Gap 8 (6-14) Blood Urea Nitrogen 18mg/dL (7-20) Creatinine 3.5mg/dL (0.6-1.0) Estimated GFR (Cockcroft-Gault) 16.1 Glucose Level 84mg/dL (70-99) Calcium Level 8.9mg/dL (8.5-10.1) Phosphorus Level 2.9mg/dL (2.6-4.7) Magnesium Level 1.8mg/dL (1.8-2.4) Albumin 1.6g/dL (3.4-5.0) Random Vancomycin Level 17.1mcg/mL Test 08/22/16 11:16 Glucose (Fingerstick) 74mg/dL (70-99) Review of Systems Review of Systems feels good today. surprised when she hears she was somnolent and confused. Comment Vitals/I & O Vital Sign - Last 24 Hours 08/21/16 08/21/16 08/21/16 08/21/16 14:50 15:16 17:04 19:00 Temp 99.5 98.8 99.5 98.8 Pulse 90 90 Resp 16 17 B/P 135/82 144/95 Pulse Ox 98 94 O2 Delivery Room Air Room Air Room Air Room Air O2 Flow Rate 08/21/16 08/21/16 08/21/16 08/22/16 20:00 20:42 22:42 00:42 Temp 97.6 97.6 Pulse 87 Resp 18 B/P 147/99 Pulse Ox 94 94 94 O2 Delivery Room Air Room Air Room Air Room Air O2 Flow Rate 2.0 2.0 2.0 08/22/16 08/22/16 08/22/16 08/22/16 02:55 07:15 07:44 07:44 Temp 97.5 97.5 Pulse 85 85 85 Resp 20 B/P 140/90 147/98 147/98 Pulse Ox 97 O2 Delivery Room Air Room Air 08/22/16 08/22/16 08/22/16 08/22/16 07:52 08:00 11:15 11:40 Temp 97.8 97.8 Pulse 81 Resp 18 B/P 145/88 Pulse Ox 98 98 O2 Delivery Room Air Room Air Room Air Room Air Intake and Output 08/21/16 08/21/16 08/22/16 15:00 23:00 07:00 Intake Total 250 ml 100 ml Output Total 1 ml Balance 249 ml 100 ml SIMA HUITRON MD Aug 22, 2016 13:13
[2016-08-22 14:11] LABS: INR 1.8 (0.8-1.1); PROTHROMBIN TIME PATIENT 19.7 SEC (11.7-14.0)
[2016-08-22 15:11] VITALS: BP 118/69
--- NOTE | 2016-08-22 15:36 | PDOC ---
PROGRESS NOTES Assessment Assessment Metabolic encephalopathy. ESRD on dialysis. DM HTN CHF Cardiomegaly COPD GERD HCV Gout Morbid obesity. RECOMMENDATIONS/PLAN: Treat medical diseases. OT/PT. EEG on 08/20/16: diffuse encephalopathy. Repeat HCT on 08/20: No acute findings. HISTORY OF THE PRESENT ILLNESS: 61-y-old AA female with above medical diseases has been having MS changes, lethargy, decreased response for admission. No focalized sensory or motor deficits noted. Her mentation is about at her baseline level on 08/22/16. PAST MEDICAL HISTORY: Please see above. PAST SURGERY HISTORY: No major surgery recently. ALLERGY: Erythromycin Neurontin Morphine MEDICATIONS: Refer to [facility] FAMILY HISTORY: Non contributory. SOCIAL HISTORY: Lives in nursing facility. Denies smoking, drinking, and illicit drug use. REVIEW OF SYSTEMS: Constitutional: No malnutrition, weight loss, cachexia. Head: No traumatic brain or head injury. Skin: No edema, or rash. Ear: No infection, tinnitus. Eyes: No vision loss or color blindness. Nose: No bleeding or purulent discharges. Hearing: Mild hearing decrease. Neck: No injury. Breast: No history of cancer, masses,or discharges. Cardiac: CAD, HTN, HLD. Pulmonary: COPD. GI: GERD. Urinary/genital: ESRD on dialysis. Endocrinologic: Diabetes Mellitus, morbid obesity. Skeletomuscular: Generalized weakness. Neurological: see HP. Psychiatric: Denies drug use/abuse. Otherwise, not [id number] review of systems. PHYSICAL EXAMINATION: General appearance is in subacute distress. HEENT: Normocephalic and nontraumatic. Eyes, nose, ears, and throat are unremarkable. Neck is supple. No lymphadenopathy. No crepitus. Cardiovascular: S1, S2, regular rate and rhythm. Pulmonary: Clear to auscultation bilaterally. Abdomen: Bowel sounds are positive. Extremities: No rash, lesions, or edema. No restriction of range of motion NEUROLOGICAL EXAMINATION: Awake. Able to answer questions and follow commands. Not fully oriented to time, but knows place and person. PERRL. EOMI. CN: no focal findings. Muscle tone: within normal. Muscle strength: 4 DTR: 1 Plantar reflex: Flexor response bilaterally Gait: not examined in bed. Sensory exam: no abnormal findings. No obvious cerebellar signs elicited. F-T-N test fine. Objective Objective Vital Signs Date Time Temp Pulse Resp B/P Pulse Ox O2 Delivery O2 Flow Rate FiO2 08/22/16 15:11 98.0 85 20 118/69 97 Room Air 98.0 08/22/16 00:42 2.0 Intake and Output 08/22/16 07:00 Intake Total 350 ml Output Total 1 ml Balance 349 ml Intake Oral 100 ml IV Total 250 ml Urine/Stool Mix 1 ml # Voids 1 Vitals Signs Vitals VS - Last 72 Hours, by Label Date Time Temp Pulse Resp B/P Pulse Ox O2 Delivery O2 Flow Rate FiO2 08/22/16 15:11 98.0 85 20 118/69 97 Room Air 98.0 08/22/16 14:53 98 Room Air 08/22/16 11:40 Room Air 08/22/16 11:15 97.8 81 18 145/88 98 Room Air 97.8 08/22/16 08:00 Room Air 08/22/16 07:52 98 Room Air 08/22/16 07:44 85 147/98 08/22/16 07:44 Room Air 08/22/16 07:15 97.5 85 20 147/98 97 Room Air 97.5 08/22/16 02:55 85 140/90 08/22/16 00:42 94 Room Air 2.0 08/21/16 22:42 97.6 87 18 147/99 94 Room Air 97.6 08/21/16 20:42 94 Room Air 2.0 08/21/16 20:00 Room Air 2.0 08/21/16 19:00 98.8 90 17 144/95 94 Room Air 98.8 08/21/16 17:04 Room Air 08/21/16 15:16 Room Air 08/21/16 14:50 99.5 90 16 135/82 98 Room Air 99.5 08/21/16 11:08 97 Room Air 08/21/16 09:30 Room Air 08/21/16 08:00 Room Air 08/21/16 07:13 97 Nasal Cannula 2.0 08/21/16 07:00 97.9 78 18 120/73 96 Room Air 97.9 Laboratory Laboratory Laboratory Tests Test 08/21/16 16:33 08/21/16 20:22 08/22/16 04:30 08/22/16 07:37 Glucose (Fingerstick) 87mg/dL (70-99) 87mg/dL (70-99) 70mg/dL (70-99) White Blood Count 12.4x10^3/uL (4.0-11.0) Red Blood Count 2.86x10^6/uL (3.50-5.40) Hemoglobin 7.8g/dL (12.0-15.5) Hematocrit 24.7% (36.0-47.0) Mean Corpuscular Volume 86fL (79-100) Mean Corpuscular Hemoglobin 27pg (25-35) Mean Corpuscular Hemoglobin Concent 32g/dL (31-37) Red Cell Distribution Width 16.2% (11.5-14.5) Platelet Count 330x10^3/uL (140-400) Neutrophils (%) (Auto) 68% (31-73) Lymphocytes (%) (Auto) 17% (24-48) Monocytes (%) (Auto) 13% (0-9) Eosinophils (%) (Auto) 2% (0-3) Basophils (%) (Auto) 1% (0-3) Neutrophils # (Auto) 8.5x10^3uL (1.8-7.7) Lymphocytes # (Auto) 2.1x10^3/uL (1.0-4.8) Monocytes # (Auto) 1.6x10^3/uL (0.0-1.1) Eosinophils # (Auto) 0.2x10^3/uL (0.0-0.7) Basophils # (Auto) 0.1x10^3/uL (0.0-0.2) Prothrombin Time 19.7SEC (11.7-14.0) Prothromb Time International Ratio 1.8 (0.8-1.1) Sodium Level 140mmol/L (136-145) Potassium Level 3.8mmol/L (3.5-5.1) Chloride Level 103mmol/L (98-107) Carbon Dioxide Level 29mmol/L (21-32) Anion Gap 8 (6-14) Blood Urea Nitrogen 18mg/dL (7-20) Creatinine 3.5mg/dL (0.6-1.0) Estimated GFR (Cockcroft-Gault) 16.1 Glucose Level 84mg/dL (70-99) Calcium Level 8.9mg/dL (8.5-10.1) Phosphorus Level 2.9mg/dL (2.6-4.7) Magnesium Level 1.8mg/dL (1.8-2.4) Albumin 1.6g/dL (3.4-5.0) Random Vancomycin Level 17.1mcg/mL Test 08/22/16 11:16 Glucose (Fingerstick) 74mg/dL (70-99) Microbiology 08/19/16 Blood Culture - Preliminary, Resulted 08/19/16 Blood Culture Result 1 (CONNOR) - Preliminary, Resulted 08/19/16 Urine Culture - Final, Complete 08/19/16 Urine Culture Result 1 (CONNOR) - Final, Complete Medication Medications Current Medications Vancomycin HCl 1 each 1X ONCE MC ; Start 08/24/16 at 06:00; Stop 08/24/16 at 06: 01 Vancomycin HCl 1 each 1 each 1X ONCE MC ; Start 08/22/16 at 06:00; Stop 08/22/16 at 06:01; Status DC Vancomycin HCl/ Sodium Chloride (Iv Sodium Chloride 0.9% 500ml Bag) 500 ml @ 250 mls/hr 1X ONCE IV Last administered on 08/22/16t 07:47; Start 08/22/16 at 07 :00; Stop 08/22/16 at 08:59; Status DC Warfarin Sodium (Coumadin) 1.5 mg DAILY16 PO ; Start 08/21/16 at 16:00; Status Cancel Comment Review of Relevant I have reviewed the following items christi (where applicable) has been applied. TENISHA BLAKELY MD Aug 22, 2016 15:36
[2016-08-22] MEDS: OXYCODONE/APAP 10/325 TABLET. PO PRN (16:34)
[2016-08-22 19:00] VITALS: BP 121/75
[2016-08-22] MEDS: NORTRIPTYLINE 25 MG CAPSULE PO SCH (21:13)
[2016-08-22 23:00] VITALS: BP 136/84
[2016-08-23 03:00] VITALS: BP 134/92
[2016-08-23 05:14] LABS: BASO # 0.1 x10^3/uL (0.0-0.2); BASO % 1 % (0-3); EOS % 2 % (0-3); HEMATOCRIT 25.5 % (36.0-47.0); HEMOGLOBIN 8.2 g/dL (12.0-15.5); LYMPH % 17 % (24-48); MEAN CORPUSCULAR HEMOGLOBIN 28 pg (25-35); MEAN CORPUSCULAR HGB CONC 32 g/dL (31-37); MEAN CORPUSCULAR VOLUME 86 fL (79-100); MONO % 14 % (0-9); NEUT % 67 % (31-73); PLATELET COUNT 360 x10^3/uL (140-400); RED BLOOD COUNT 2.98 x10^6/uL (3.50-5.40); RED CELL DISTRIBUTION WIDTH 16.4 % (11.5-14.5); WHITE BLOOD COUNT 11.7 x10^3/uL (4.0-11.0)
[2016-08-23 05:26] LABS: INR 1.4 (0.8-1.1); PROTHROMBIN TIME PATIENT 16.1 SEC (11.7-14.0)
[2016-08-23 05:48] LABS: ALBUMIN 1.6 g/dL (3.4-5.0); CALCIUM 9.5 mg/dL (8.5-10.1); CREATININE 4.7 mg/dL (0.6-1.0); GFR 11.5; PHOSPHORUS 2.9 mg/dL (2.6-4.7); POTASSIUM 3.6 mmol/L (3.5-5.1)
[2016-08-23 07:00] VITALS: BP 134/81
[2016-08-23] MEDS: IPRATRPIUM/ALBUTEROL 0.5/2.5MG 3 ML NEBU. NEB SCH ×2 (07:38→11:13)
[2016-08-23] MEDS: BUDESONIDE 0.5 MG/2 ML NEBU NEB SCH (07:39)
[2016-08-23] MEDS: CARVEDILOL 12.5 MG TABLET PO SCH (08:26)
[2016-08-23] MEDS: GABAPENTIN 300 MG CAPSULE. PO SCH ×2 (08:27→13:28)
[2016-08-23] MEDS: ASPIRIN 81 MG TAB.CHEW PO SCH (08:27)
[2016-08-23] MEDS: POLYETHYLENE GLYCOL 3350 17 GM PACKET. PO SCH (08:27)
[2016-08-23] MEDS: OXYCODONE ER 10 MG TAB.ER.12H. PO SCH (08:30)
[2016-08-23] MEDS: SERTRALINE 50 MG TABLET. PO SCH (08:31)
[2016-08-23] MEDS: ALLOPURINOL 100 MG TABLET. PO SCH (08:31)
[2016-08-23] MEDS: SENNOSIDES 8.6 MG TABLET PO SCH (08:31)
[2016-08-23] MEDS: LIDOCAINE (700MG/PATCH) PATCH. TP SCH (08:32)
--- NOTE | 2016-08-23 09:29 | PDOC ---
Infectious Disease Note Subjective Subjective awake, more appropriate ROS ROS GEN: Denies fevers, chills, sweats HEENT: Denies blurred vision, sore throat CV: Denies chest pain RESP: Denies shortness of air, cough GI: Denies n/v/d NEURO: Denies confusion, dizziness MSK: Denies weakness, joint pain/swelling Vital Sign Vital Signs Vital Signs Date Time Temp Pulse Resp B/P Pulse Ox O2 Delivery O2 Flow Rate FiO2 08/23/16 08:30 20 91 Room Air 08/23/16 08:26 85 134/81 08/23/16 07:00 98.1 98.1 08/23/16 01:13 2.0 Physical Exam PHYSICAL EXAM GENERAL: NAD, Alert HEENT: PERRL, OC/OP NECK: Supple, no JVD, no LN LUNGS: Clear HEART: S1S2, no gallop, no murmur ABD: Soft, NT, no organomegaly, no rebound EXT: No edema, no cyanosis 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, 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 x 3, no focal neurologic deficit SKIN: No rash IV: ok Labs Lab Laboratory Tests Test 08/22/16 11:16 08/22/16 16:52 08/22/16 21:13 08/23/16 04:45 Glucose (Fingerstick) 74mg/dL (70-99) 120mg/dL (70-99) 98mg/dL (70-99) White Blood Count 11.7x10^3/uL (4.0-11.0) Red Blood Count 2.98x10^6/uL (3.50-5.40) Hemoglobin 8.2g/dL (12.0-15.5) Hematocrit 25.5% (36.0-47.0) Mean Corpuscular Volume 86fL (79-100) Mean Corpuscular Hemoglobin 28pg (25-35) Mean Corpuscular Hemoglobin Concent 32g/dL (31-37) Red Cell Distribution Width 16.4% (11.5-14.5) Platelet Count 360x10^3/uL (140-400) Neutrophils (%) (Auto) 67% (31-73) Lymphocytes (%) (Auto) 17% (24-48) Monocytes (%) (Auto) 14% (0-9) Eosinophils (%) (Auto) 2% (0-3) Basophils (%) (Auto) 1% (0-3) Neutrophils # (Auto) 7.8x10^3uL (1.8-7.7) Lymphocytes # (Auto) 2.0x10^3/uL (1.0-4.8) Monocytes # (Auto) 1.6x10^3/uL (0.0-1.1) Eosinophils # (Auto) 0.3x10^3/uL (0.0-0.7) Basophils # (Auto) 0.1x10^3/uL (0.0-0.2) Prothrombin Time 16.1SEC (11.7-14.0) Prothromb Time International Ratio 1.4 (0.8-1.1) Sodium Level 140mmol/L (136-145) Potassium Level 3.6mmol/L (3.5-5.1) Chloride Level 103mmol/L (98-107) Carbon Dioxide Level 30mmol/L (21-32) Anion Gap 7 (6-14) Blood Urea Nitrogen 27mg/dL (7-20) Creatinine 4.7mg/dL (0.6-1.0) Estimated GFR (Cockcroft-Gault) 11.5 Glucose Level 111mg/dL (70-99) Calcium Level 9.5mg/dL (8.5-10.1) Phosphorus Level 2.9mg/dL (2.6-4.7) Magnesium Level 2.0mg/dL (1.8-2.4) Albumin 1.6g/dL (3.4-5.0) Test 08/23/16 07:09 Glucose (Fingerstick) 101mg/dL (70-99) Objective Assessment Encephalopathy Fever Leukocytosis ESRD Obesity BC + G + cocci ,, coag neg staph Plan Plan of Care vancomycin for 1 more wk through HD attempt to salvage HD cath fistula not ready supportive care failure possibility discussed DINESH MCINTYRE MD Aug 23, 2016 09:29
--- NOTE | 2016-08-23 09:39 | PDOC ---
PROGRESS NOTES Chief Complaint Chief Complaint AMS ASSESSMENT AND PLAN: 1. GPC bacteremia with Sepsis: on vanco. VS now stable. coag neg Staph , but in mult sets. ideally, permacath should ve removed, but AV fistula not mature. d/w Dr Taylor: cont vanco w/HD for an add.l week 2. AMS: resolved! metabolic encephalopathy from hyper Ca and infect 3. Hypercalcemia: resolving. cont calcitonin. low dose pamidronate x1 on 08/21. PTH, vit D WNL. SPEP/ZEN pending 4. ESRD: HD on // 5. Anemia: mod-severe. chronic. ESRD and inflammation induced. on EPO, iron as per nephrology 6. HCV: on antiviral rx at [place] 7. DM: by report. HgbA1c WNL. stop ISS 8. CAD: no acute issues. minimal troponin elevation 08/22 ESRD. signif elevated pro-BNP at admit, but echo w/o sign of systolic or diastolic dysfxn. + pulm HTN 9. OAC: was on coumadin with supratherapeutic s/p PO vit K yesterday, INR 1.4 today. unclear what rx is for. will try to obtain pertinent records. 10. Depression: on sertraline, low dose ativan PRN 11. Prophylaxis: heparin 12. Dispo: [facility]. needs F/U of calcium levels and pending results ADDENDUM: L hip pain with standing and walking. hip pelvis films ordered and reviewed: no fx, no obvious lytic lesion Vitals Vitals Vital Signs Date Time Temp Pulse Resp B/P Pulse Ox O2 Delivery O2 Flow Rate FiO2 08/23/16 08:30 20 91 Room Air 08/23/16 08:26 85 134/81 08/23/16 07:00 98.1 98.1 08/23/16 01:13 2.0 Physical Exam General: Alert, Cooperative, No acute distress Heart: Regular rate Lungs: Clear Abdomen: Normal bowel sounds, Soft, No tenderness, Other (obese abdomen) Extremities: No edema Skin: No rashes Labs LABS Laboratory Tests Test 08/22/16 11:16 08/22/16 16:52 08/22/16 21:13 08/23/16 04:45 Glucose (Fingerstick) 74mg/dL (70-99) 120mg/dL (70-99) 98mg/dL (70-99) White Blood Count 11.7x10^3/uL (4.0-11.0) Red Blood Count 2.98x10^6/uL (3.50-5.40) Hemoglobin 8.2g/dL (12.0-15.5) Hematocrit 25.5% (36.0-47.0) Mean Corpuscular Volume 86fL (79-100) Mean Corpuscular Hemoglobin 28pg (25-35) Mean Corpuscular Hemoglobin Concent 32g/dL (31-37) Red Cell Distribution Width 16.4% (11.5-14.5) Platelet Count 360x10^3/uL (140-400) Neutrophils (%) (Auto) 67% (31-73) Lymphocytes (%) (Auto) 17% (24-48) Monocytes (%) (Auto) 14% (0-9) Eosinophils (%) (Auto) 2% (0-3) Basophils (%) (Auto) 1% (0-3) Neutrophils # (Auto) 7.8x10^3uL (1.8-7.7) Lymphocytes # (Auto) 2.0x10^3/uL (1.0-4.8) Monocytes # (Auto) 1.6x10^3/uL (0.0-1.1) Eosinophils # (Auto) 0.3x10^3/uL (0.0-0.7) Basophils # (Auto) 0.1x10^3/uL (0.0-0.2) Prothrombin Time 16.1SEC (11.7-14.0) Prothromb Time International Ratio 1.4 (0.8-1.1) Sodium Level 140mmol/L (136-145) Potassium Level 3.6mmol/L (3.5-5.1) Chloride Level 103mmol/L (98-107) Carbon Dioxide Level 30mmol/L (21-32) Anion Gap 7 (6-14) Blood Urea Nitrogen 27mg/dL (7-20) Creatinine 4.7mg/dL (0.6-1.0) Estimated GFR (Cockcroft-Gault) 11.5 Glucose Level 111mg/dL (70-99) Calcium Level 9.5mg/dL (8.5-10.1) Phosphorus Level 2.9mg/dL (2.6-4.7) Magnesium Level 2.0mg/dL (1.8-2.4) Albumin 1.6g/dL (3.4-5.0) Test 08/23/16 07:09 Glucose (Fingerstick) 101mg/dL (70-99) Review of Systems Review of Systems feels ok. disheartened about severe pain with tryng to walk, in L hip/leg SIMA HUITRON MD Aug 23, 2016 09:39
[2016-08-23 10:59] VITALS: BP 126/81
--- NOTE | 2016-08-23 11:41 | PDOC ---
PROGRESS NOTES Assessment Assessment Metabolic encephalopathy. ESRD on dialysis. DM HTN CHF Cardiomegaly COPD GERD HCV Gout Morbid obesity. RECOMMENDATIONS/PLAN: Treat medical diseases. OT/PT. FU with PCP. EEG on 08/20/16: diffuse encephalopathy. Repeat HCT on 08/20: No acute findings. HISTORY OF THE PRESENT ILLNESS: 61-y-old AA female with above medical diseases has been having MS changes, lethargy, decreased response for admission. No focalized sensory or motor deficits noted. She has chronic LE weakness and unable to walk w/o assistance. Her mentation is about at her baseline level since 08/22/16. PAST MEDICAL HISTORY: Please see above. PAST SURGERY HISTORY: No major surgery recently. ALLERGY: Erythromycin Neurontin Morphine MEDICATIONS: Refer to [facility] FAMILY HISTORY: Non contributory. SOCIAL HISTORY: Lives in nursing facility. Denies smoking, drinking, and illicit drug use. REVIEW OF SYSTEMS: Constitutional: No malnutrition, weight loss, cachexia. Head: No traumatic brain or head injury. Skin: No edema, or rash. Ear: No infection, tinnitus. Eyes: No vision loss or color blindness. Nose: No bleeding or purulent discharges. Hearing: Mild hearing decrease. Neck: No injury. Breast: No history of cancer, masses,or discharges. Cardiac: CAD, HTN, HLD. Pulmonary: COPD. GI: GERD. Urinary/genital: ESRD on dialysis. Endocrinologic: Diabetes Mellitus, morbid obesity. Skeletomuscular: Generalized weakness. Neurological: see HP. Psychiatric: Denies drug use/abuse. Otherwise, not [id number] review of systems. PHYSICAL EXAMINATION: General appearance is in subacute distress. HEENT: Normocephalic and nontraumatic. Eyes, nose, ears, and throat are unremarkable. Neck is supple. No lymphadenopathy. No crepitus. Cardiovascular: S1, S2, regular rate and rhythm. Pulmonary: Clear to auscultation bilaterally. Abdomen: Bowel sounds are positive. Extremities: No rash, lesions, or edema. No restriction of range of motion NEUROLOGICAL EXAMINATION: Awake. Able to answer questions and follow commands. Oriented to time, place and person. PERRL. EOMI. CN: no focal findings. Muscle tone: within normal. Muscle strength: 4+ UE, 3-4 LE. DTR: 1 due to obesity. Plantar reflex: Flexor response bilaterally Gait: not examined in bed. Sensory exam: no abnormal findings. No obvious cerebellar signs elicited. F-T-N test fine. Objective Objective Vital Signs Date Time Temp Pulse Resp B/P Pulse Ox O2 Delivery O2 Flow Rate FiO2 08/23/16 11:13 99 Room Air 08/23/16 10:59 98.8 79 20 126/81 98.8 08/23/16 01:13 2.0 Intake and Output 08/23/16 07:00 Intake Total 860 ml Balance 860 ml Intake Oral 860 ml # Voids 2 # Bowel Movements 1 Vitals Signs Vitals VS - Last 72 Hours, by Label Date Time Temp Pulse Resp B/P Pulse Ox O2 Delivery O2 Flow Rate FiO2 08/23/16 11:13 99 Room Air 08/23/16 10:59 98.8 79 20 126/81 96 Room Air 98.8 08/23/16 08:30 20 91 Room Air 08/23/16 08:26 85 134/81 08/23/16 08:00 Room Air 08/23/16 07:39 98 Room Air 08/23/16 07:00 98.1 85 20 134/81 91 Room Air 98.1 08/23/16 03:00 98.4 83 18 134/92 92 98.4 08/23/16 01:13 96 Room Air 2.0 08/22/16 23:00 98.2 83 18 136/84 96 Room Air 98.2 08/22/16 21:13 97 Room Air 2.0 08/22/16 20:00 Room Air 2.0 08/22/16 19:26 97 Room Air 08/22/16 19:25 97 Room Air 08/22/16 19:00 98.6 86 20 121/75 96 98.6 08/22/16 16:36 85 118/69 08/22/16 15:11 98.0 85 20 118/69 97 Room Air 98.0 08/22/16 14:53 98 Room Air 08/22/16 11:40 Room Air 08/22/16 11:15 97.8 81 18 145/88 98 Room Air 97.8 08/22/16 08:00 Room Air 08/22/16 07:52 98 Room Air 08/22/16 07:44 85 147/98 08/22/16 07:44 Room Air 08/22/16 07:15 97.5 85 20 147/98 97 Room Air 97.5 Laboratory Laboratory Laboratory Tests Test 08/22/16 16:52 08/22/16 21:13 08/23/16 04:45 08/23/16 07:09 Glucose (Fingerstick) 120mg/dL (70-99) 98mg/dL (70-99) 101mg/dL (70-99) White Blood Count 11.7x10^3/uL (4.0-11.0) Red Blood Count 2.98x10^6/uL (3.50-5.40) Hemoglobin 8.2g/dL (12.0-15.5) Hematocrit 25.5% (36.0-47.0) Mean Corpuscular Volume 86fL (79-100) Mean Corpuscular Hemoglobin 28pg (25-35) Mean Corpuscular Hemoglobin Concent 32g/dL (31-37) Red Cell Distribution Width 16.4% (11.5-14.5) Platelet Count 360x10^3/uL (140-400) Neutrophils (%) (Auto) 67% (31-73) Lymphocytes (%) (Auto) 17% (24-48) Monocytes (%) (Auto) 14% (0-9) Eosinophils (%) (Auto) 2% (0-3) Basophils (%) (Auto) 1% (0-3) Neutrophils # (Auto) 7.8x10^3uL (1.8-7.7) Lymphocytes # (Auto) 2.0x10^3/uL (1.0-4.8) Monocytes # (Auto) 1.6x10^3/uL (0.0-1.1) Eosinophils # (Auto) 0.3x10^3/uL (0.0-0.7) Basophils # (Auto) 0.1x10^3/uL (0.0-0.2) Prothrombin Time 16.1SEC (11.7-14.0) Prothromb Time International Ratio 1.4 (0.8-1.1) Sodium Level 140mmol/L (136-145) Potassium Level 3.6mmol/L (3.5-5.1) Chloride Level 103mmol/L (98-107) Carbon Dioxide Level 30mmol/L (21-32) Anion Gap 7 (6-14) Blood Urea Nitrogen 27mg/dL (7-20) Creatinine 4.7mg/dL (0.6-1.0) Estimated GFR (Cockcroft-Gault) 11.5 Glucose Level 111mg/dL (70-99) Calcium Level 9.5mg/dL (8.5-10.1) Phosphorus Level 2.9mg/dL (2.6-4.7) Magnesium Level 2.0mg/dL (1.8-2.4) Albumin 1.6g/dL (3.4-5.0) Test 08/23/16 11:04 Glucose (Fingerstick) 123mg/dL (70-99) Microbiology 08/19/16 Blood Culture - Preliminary, Resulted 08/19/16 Blood Culture Result 1 (CONNOR) - Preliminary, Resulted 08/19/16 Urine Culture - Final, Complete 08/19/16 Urine Culture Result 1 (CONNOR) - Final, Complete Medication Medications Current Medications Vancomycin HCl 1 each 1X ONCE MC ; Start 08/24/16 at 06:00; Stop 08/24/16 at 06: 01 Comment Review of Relevant I have reviewed the following items christi (where applicable) has been applied. TENSIHA BLAKELY MD Aug 23, 2016 11:41
[2016-08-23] MEDS: OXYCODONE/APAP 10/325 TABLET. PO PRN (12:06)
--- NOTE | 2016-08-23 12:36 | RAD ---
Exam performed: Single view pelvis and 2 views left hip. History: Severe pain and limited mobility in the left hip joint when standing. Date of service: 08/23/16. Comparison: None available Findings: Single AP view pelvis AP and frog leg lateral view of the left hip are obtained. Normal alignment of both hip joints as well as sacroiliac joints is maintained. There is no acute fracture or dislocation. There are spondylotic changes involving the lumbar spine. A hernia repair mesh is seen in the lower abdomen. Impression: No acute abnormality seen in the single view pelvis and left hip. If symptoms persist, further evaluation with MRI of the left may be of additional benefit.
--- NOTE | 2016-08-23 13:10 | PDOC ---
SUBJECTIVE ROS ESRD Doing much better but still not fully oritented CVS: no Orthopnea, no CP RESP: no SOB, no CASAS GI: no Nausea, no Vomiting : no Dysuria, no Urgency OBJECTIVE Vital Signs Vital Signs Date Time Temp Pulse Resp B/P Pulse Ox O2 Delivery O2 Flow Rate FiO2 08/23/16 12:06 20 99 Room Air 08/23/16 10:59 98.8 79 126/81 98.8 08/23/16 01:13 2.0 I & 0 Intake and Output 08/23/16 07:00 Intake Total 860 ml Balance 860 ml Intake Oral 860 ml # Voids 2 # Bowel Movements 1 PHYSICAL EXAM Physical Exam General Appearance: More Awake more Alert Oriented x 2; In no Distress Eyes: VIsion Unchanged Conjunctiva Normal EN: No EN Drainage Mucous Memb. dryish Neck: no JVD no JVP Supple no Thyromegaly; short thick neck CVS: S1 S2 soft Murmur No Gallop No Rub no Edema Resp: no Rales no Rhonchi no Acc. Muscle use GI: BS +ve NO Bruit Min Tender Non Distended : no CVA tenderness; no Suprapubic Tenderness ASSESSMENT/PLAN ESRD: Dialysis as below F 180 NR 3.5 Hrs 4 K 2.5 Ca 140 Na 35 HC03 Qb 350 + Qd 500+ Heparin 0 Units Uf to dry weight as tolerated May give 25-50 gms of 25% Albumin if needed to maintain Hemodynamic stability Treatment plan reviewed and discussed with analytical clerk Previous Fevers - (currently resolved) Bl Cx with GPC,, Staph EPI on cx - Unable to use AVF so will Keep Cath in place. Now clinically much improved with IV Vancomycin. IV Abx as discussed with Dr. Diamond Mcintyre Anemia: Epogen Transfuse with next HD as needed. Hyper TN: Currently well controlled Sev. Hypoalbuminemia - Urine check is -ve for Proteinuria; AMS - Now much improved. Relative Hypercalcemia - better after Miacalcin as ordered COMMENT/RELEVANT DATA Meds Current Medications Medications (Trade) Dose Ordered Sig/César Start Time Stop Time Status Last Admin Dose Admin Acetaminophen (Tylenol) 325 mg PRN Q4HRS PRN 08/20/16 12:15 Acetaminophen 650 mg 650 mg PRN Q4HRS PRN 08/19/16 14:30 08/20/16 14:29 DC Albumin Human (Albuminar) 100 ml @ 100 mls/hr PRN Q30MIN PRN 08/19/16 16:30 08/19/16 17:27 DC 08/19/16 17:26 100 MLS/HR Albuterol Sulfate (Ventolin Neb Soln) 2.5 mg PRN Q4HRS PRN 08/20/16 14:45 Albuterol/ Ipratropium (Duoneb) 3 ml RTQID 08/20/16 16:00 08/23/16 11:13 3 ML Allopurinol (Zyloprim) 100 mg DAILY 08/20/16 13:00 08/23/16 08:31 100 MG Aspirin (Children'S Aspirin) 81 mg DAILY 08/20/16 13:00 08/23/16 08:27 81 MG Bisacodyl (Dulcolax Supp) 10 mg PRN DAILY PRN 08/20/16 12:15 Budesonide (Pulmicort) 0.5 mg RTBID 08/20/16 20:00 08/23/16 07:39 0.5 MG Calcitonin [place] 400 unit 400 unit BID 08/19/16 21:00 08/23/16 01:00 DC 08/20/16 23:30 400 UNIT Carvedilol (Coreg) 25 mg BIDWMEALS 08/20/16 17:00 08/23/16 08:26 25 MG Darbepoetin Ernst (Aranesp) 60 mcg Mo 08/19/16 21:00 08/19/16 22:06 60 MCG Diphenhydramine HCl (Benadryl) 25 mg 1X PRN PRN 08/21/16 10:30 08/22/16 10:29 DC Fentanyl Citrate (Fentanyl 2ml Vial) 50 mcg PRN Q2HR PRN 08/19/16 14:30 08/20/16 14:29 DC Gabapentin (Neurontin) 300 mg TID 08/20/16 14:00 08/22/16 21:13 300 MG Info (PHARMACY MONITORING -- do not chart) 1 each PRN DAILY PRN 08/21/16 10:30 UNV Info 1 each 1 each PRN DAILY PRN 08/19/16 16:30 UNV Ipratropium [place] (Atrovent) 0.2 mg QID 08/20/16 13:00 08/20/16 14:42 DC Lidocaine (Lidoderm) 1 patch DAILY 08/20/16 13:00 08/23/16 08:32 1 PATCH Lorazepam 0.5 mg 0.5 mg 1X ONCE 08/21/16 09:30 08/21/16 09:31 DC 08/21/16 09:28 0.5 MG Magnesium Sulfate/ Dextrose (Magnesium Sulfate PREMIX 2GM) 50 ml @ 25 mls/hr PRN DAILY PRN 08/19/16 15:45 Nitroglycerin (Nitrostat) 0.4 mg PRN DAILY PRN 08/20/16 12:15 Nortriptyline HCl (Pamelor) 25 mg QHS 08/20/16 21:00 08/22/16 21:13 25 MG Ondansetron HCl (Zofran Odt) 8 mg PRN Q8HRS PRN 08/20/16 12:30 Ondansetron HCl (Zofran) 4 mg PRN Q8HRS PRN 08/19/16 14:30 08/20/16 14:29 DC Oxycodone HCl (Oxycontin) 10 mg BID 08/20/16 21:00 08/23/16 08:30 10 MG Oxycodone/ Acetaminophen (Percocet 10/325) 1 tab PRN Q6HRS PRN 08/20/16 12:15 08/23/16 12:06 1 TAB Pamidronate Disodium/Sodium Chloride (Aredia/Iv Sodium Chloride 0.9% 250ml) 250 ml @ 83.333 mls/ hr 1X ONCE 08/21/16 09:00 08/21/16 11:59 DC 08/21/16 13:24 83.333 MLS/HR Phytonadione 2.5 mg 2.5 mg 1X ONCE 08/21/16 08:00 08/21/16 08:01 DC 08/21/16 08:20 2.5 MG Polyethylene Glycol (miraLAX PACKET) 17 gm DAILY 08/20/16 13:00 08/23/16 08:27 17 GM Sennosides (Senna) 8.6 mg BID 08/20/16 21:00 08/23/16 08:31 8.6 MG Sertraline HCl (Zoloft) 100 mg DAILY 08/20/16 13:00 08/23/16 08:31 100 MG Sodium Biphosphate/ Sodium Phosphate (Fleet Adult) 133 ml PRN DAILY PRN 08/20/16 12:15 Sodium Chloride (Iv Sodium Chloride 0.9% 500ml Bag) 500 ml @ 500 mls/hr 1X ONCE 08/19/16 11:00 08/19/16 11:59 DC 08/19/16 11:00 500 MLS/HR Sodium Chloride (Iv Sodium Chloride 0.9% 1000ml Bag) 1,000 ml @ 1,000 mls/hr Q1H PRN 08/21/16 10:30 08/21/16 16:29 DC Sodium Chloride (Normal Saline Flush) 10 ml 1X PRN PRN 08/21/16 10:30 08/22/16 10:29 DC Vancomycin HCl 1 each 1X ONCE 08/24/16 06:00 08/24/16 06:01 Vancomycin HCl 1 each 1 each 1X ONCE 08/22/16 06:00 08/22/16 06:01 DC Vancomycin HCl 2 gm/Sodium Chloride 500 ml @ 250 mls/hr 1X ONCE 08/19/16 16:30 08/19/16 18:29 DC 08/19/16 22:02 250 MLS/HR Vancomycin HCl/ Sodium Chloride (Iv Sodium Chloride 0.9% 250ml) 250 ml @ 250 mls/hr Q12H 08/20/16 10:45 UNV Vancomycin HCl/ Sodium Chloride (Iv Sodium Chloride 0.9% 500ml Bag) 500 ml @ 250 mls/hr 1X ONCE 08/22/16 07:00 08/22/16 08:59 DC 08/22/16 07:47 250 MLS/HR Warfarin Sodium (Coumadin Per Physician) 1 each PRN DAILY PRN 08/20/16 12:30 08/22/16 11:06 1 EACH Warfarin Sodium (Coumadin) 1.5 mg DAILY16 08/21/16 16:00 Cancel Lab Laboratory Tests Test 08/22/16 16:52 08/22/16 21:13 08/23/16 04:45 08/23/16 07:09 Glucose (Fingerstick) 120mg/dL (70-99) 98mg/dL (70-99) 101mg/dL (70-99) White Blood Count 11.7x10^3/uL (4.0-11.0) Red Blood Count 2.98x10^6/uL (3.50-5.40) Hemoglobin 8.2g/dL (12.0-15.5) Hematocrit 25.5% (36.0-47.0) Mean Corpuscular Volume 86fL (79-100) Mean Corpuscular Hemoglobin 28pg (25-35) Mean Corpuscular Hemoglobin Concent 32g/dL (31-37) Red Cell Distribution Width 16.4% (11.5-14.5) Platelet Count 360x10^3/uL (140-400) Neutrophils (%) (Auto) 67% (31-73) Lymphocytes (%) (Auto) 17% (24-48) Monocytes (%) (Auto) 14% (0-9) Eosinophils (%) (Auto) 2% (0-3) Basophils (%) (Auto) 1% (0-3) Neutrophils # (Auto) 7.8x10^3uL (1.8-7.7) Lymphocytes # (Auto) 2.0x10^3/uL (1.0-4.8) Monocytes # (Auto) 1.6x10^3/uL (0.0-1.1) Eosinophils # (Auto) 0.3x10^3/uL (0.0-0.7) Basophils # (Auto) 0.1x10^3/uL (0.0-0.2) Prothrombin Time 16.1SEC (11.7-14.0) Prothromb Time International Ratio 1.4 (0.8-1.1) Sodium Level 140mmol/L (136-145) Potassium Level 3.6mmol/L (3.5-5.1) Chloride Level 103mmol/L (98-107) Carbon Dioxide Level 30mmol/L (21-32) Anion Gap 7 (6-14) Blood Urea Nitrogen 27mg/dL (7-20) Creatinine 4.7mg/dL (0.6-1.0) Estimated GFR (Cockcroft-Gault) 11.5 Glucose Level 111mg/dL (70-99) Calcium Level 9.5mg/dL (8.5-10.1) Phosphorus Level 2.9mg/dL (2.6-4.7) Magnesium Level 2.0mg/dL (1.8-2.4) Albumin 1.6g/dL (3.4-5.0) Test 08/23/16 11:04 Glucose (Fingerstick) 123mg/dL (70-99) HERMELINDA MCINTYRE MD Aug 23, 2016 13:10
[2016-08-23] MEDS ORDERED: IV NORMAL SALINE 1000ML BAG 1,000 ML IV PRN ×2 (13:16)
[2016-08-23] MEDS ORDERED: DIALYSIS PATIENT. MC PRN (13:30)
[2016-08-23] MEDS ORDERED: DIPHENHYDRAMINE 50 MG/ML VIAL IV PRN ×2 (13:30)
[2016-08-23] MEDS ORDERED: LABETALOL 20 MG/4 ML DISP.SYRIN. IVP PRN (13:30)
[2016-08-23] MEDS ORDERED: 0.9 % SODIUM CHLORIDE 10 ML DISP.SYRIN. IV PRN ×2 (13:30)
[2016-08-23 16:37] LABS: ALPHA 1 0.3 g/dL (0.0-0.4); ALPHA 2 0.8 g/dL (0.4-1.0); BETA 1.1 g/dL (0.7-1.3); GAMMA 1.2 g/dL (0.4-1.8); M-SPIKE Not Observed g/dL (Not Observed); PROTEIN TOTAL 5.8 g/dL (6.0-8.5)
[2016-08-23 20:23] LABS: IMMUNOGLOBULIN A 538 mg/dL (87-352); IMMUNOGLOBULIN G 1336 mg/dL (700-1600); IMMUNOGLOBULIN M 27 mg/dL (26-217)
[2016-08-24] MEDS ORDERED: VANCOMYCIN RANDOM LEVEL. MC ONE (06:00)
--- NOTE | 2016-08-25 21:51 | DS ---
DATE OF DISCHARGE: 08/23/2016 CHIEF COMPLAINT: Acute mental status changes. HOSPITAL COURSE: The patient is a 61-year-old -[place]iqu[place] woman with multiple medical issues who presented to the Emergency Room with acute mental status changes, which was thought to be secondary to hypercalcemia as well as infection. Symptoms actually resolved fairly quickly when both issues were addressed. During her hospitalization, she was found with coag-negative staph in multiple sets, which was thought to be a true infection rather than a contamination. She was started on vancomycin with dialysis. ID was following. Because AV fistula was not matured and Perm-A-Cath could not be resumed, vancomycin was continued with dialysis on an outpatient basis as well. Hypercalcemia was addressed with calcitonin as well as a single dose of 30 mg of pamidronate. PTH and vitamin D were within normal limits. Suspicion for malignancy was given. SPEP and ZEN were pending and will be followed at the assisted. All her other chronic issues including end-stage renal disease, anemia, HCV, diabetes mellitus, CAD as well as depression and oral anticoagulation therapy will be monitored at assisted as well and no changes were made in her regimen. PHYSICAL EXAMINATION: Please refer to note from same day, discharge date 08/23/2016. DISCHARGE CONDITION: Stable. DISPOSITION: To SNF ([facility]). DISCHARGE DIAGNOSIS: Coagulase-negative staphylococcus bacteremia. DISCHARGE MEDICATIONS: Please refer to MAR. DISCHARGE INSTRUCTIONS: The patient will continue with dialysis and receive vancomycin after each session for the next week. She will follow up with rehab and see her PCP upon return to home. SIMA HUITRON MD DR: UR/nts JOB#: [id number] / [id number] KAL Perez MD
== END 2016-08-23 18:40 | DRG 314 ==
LOC: ER 10:13 → 5 SOUTH 13:15
PROVIDERS: ADMIT Internal Medicine Hematology & Oncology; ATTEND Internal Medicine Hematology & Oncology
PROC: 5A1D60Z (ICD-10-PCS; principal; 2016-08-21)
DX: T82.7XXA Infection and inflammatory reaction due to other cardiac and vascular devices, implants and grafts, initial encounter (principal); A41.9 Sepsis, unspecified organism; N18.6 End stage renal disease; G93.41 Metabolic encephalopathy; I13.2 Hypertensive heart and chronic kidney disease with heart failure and with stage 5 chronic kidney disease, or end stage renal disease; B95.7 Other staphylococcus as the cause of diseases classified elsewhere; D64.9 Anemia, unspecified; E11.22 Type 2 diabetes mellitus with diabetic chronic kidney disease; E66.01 Morbid (severe) obesity due to excess calories; E83.52 Hypercalcemia; E88.09 Other disorders of plasma-protein metabolism, not elsewhere classified; F32.9 Major depressive disorder, single episode, unspecified; I25.10 Atherosclerotic heart disease of native coronary artery without angina pectoris; I27.2 Other secondary pulmonary hypertension; I50.9 Heart failure, unspecified; J44.9 Chronic obstructive pulmonary disease, unspecified; K21.9 Gastro-esophageal reflux disease without esophagitis; M10.9 Gout, unspecified; R79.1 Abnormal coagulation profile; Z68.38 Body mass index [BMI] 38.0-38.9, adult; Z99.2 Dependence on renal dialysis; Z88.1 Allergy status to other antibiotic agents; Z88.5 Allergy status to narcotic agent; Z88.8 Allergy status to other drugs, medicaments and biological substances
CPT/HCPCS: 36415; 70450; 71010; 73502; 74176; 80048; 80069; 80076; 80202; 81001; 82140; 82306; 82550; 82607; 82947; 83036; 83605; 83735; 83880; 83970; 84165; 84443; 84484; 85018; 85027; 85610; 85730; 86334; 87040; 87086; 87205; 87340; 87341; 87641; 93005; 93306; 94250; 94640; 94760; 95816; G0481; J0630; J0881; J2060; J2430; J3370; J7040; J7050; J7620; P9046; 97530; 99285-25; J7030

== ENCOUNTER 2016-09-09 18:07 | Inpatient (IN) | payer MEDICARE, OTHER ==
[~2016-09-09] VITALS: Ht 180.3 cm; Wt 107.5 kg
[2016-09-09] VITALS (9 sets, daily range): BP systolic 105–153; BP diastolic 64–82
[~2016-09-09 18:07] MED LIST: ACET325T9 PO; ALLO100T PO; ASPI81TA2 PO; BISA10SU55 RC; CARV25TA PO; CHOL10003 PO; CIPR250T PO; CYCL10TA2 PO; ELBA1TAB PO; FLUT1DIS3 IH; GABA-586 PO; IPRA0.2S5 NEB; LIDO700A4 TP; Mylanta; NA P133E2 RC; NITR0.4T SL; NORT25CA PO; ONDA8TAB12 PO; OXYC-250 PO; OXYC10TA32 PO; POLY119P19 PO; PhosLo; SENN8.6T99 PO; SERT100T PO; VENTOLIN HFA18 GM INH; VIT1TABL70 PO; WARF2TAB7 PO
[2016-09-09] MEDS ORDERED: OXYCODONE/APAP 5/325 TABLET. PO ONE (19:00)
[2016-09-09 19:09] LABS: BASO # 0.1 x10^3/uL (0.0-0.2); BASO % 1 % (0-3); EOS % 2 % (0-3); LYMPH # 3.6 x10^3/uL (1.0-4.8); LYMPH % 32 % (24-48); MEAN CORPUSCULAR HEMOGLOBIN 26 pg (25-35); MEAN CORPUSCULAR HGB CONC 30 g/dL (31-37); MEAN CORPUSCULAR VOLUME 85 fL (79-100); MONO % 8 % (0-9); NEUT % 58 % (31-73); PLATELET COUNT 243 x10^3/uL (140-400); RED BLOOD COUNT 2.18 x10^6/uL (3.50-5.40); RED CELL DISTRIBUTION WIDTH 17.5 % (11.5-14.5); WHITE BLOOD COUNT 11.1 x10^3/uL (4.0-11.0)
[2016-09-09 19:12] LABS: HEMATOCRIT 18.5 % (36.0-47.0); HEMOGLOBIN 5.6 g/dL (12.0-15.5)
[2016-09-09] MEDS ORDERED: HYDROMORPHONE 2 MG/ML VIAL. IV ONE (19:15)
[2016-09-09 19:21] LABS: CALCIUM 8.5 mg/dL (8.5-10.1); CREATININE 4.7 mg/dL (0.6-1.0); GFR 11.5; POTASSIUM 4.3 mmol/L (3.5-5.1)
[2016-09-09 19:27] LABS: ALBUMIN 1.6 g/dL (3.4-5.0); ALBUMIN/GLOBULIN RATIO 0.3 (1.0-1.7); TOTAL BILIRUBIN 0.4 mg/dL (0.2-1.0); TOTAL PROTEIN 6.8 g/dL (6.4-8.2)
[2016-09-09] MEDS ORDERED: PANTOPRAZOLE SODIUM IV 80 MG in IV NORMAL SALINE 100ML 100 ML IV ONE (19:30)
[2016-09-09] MEDS ORDERED: ONDANSETRON PF 4 MG/2 ML VIAL. IV PRN (19:30)
[2016-09-09] MEDS ORDERED: ACETAMINOPHEN 325 MG TABLET. PO PRN (19:30)
[2016-09-09] MEDS: IV NORMAL SALINE 1000ML BAG 1,000 ML IV SCH (19:51)
[2016-09-09 20:11] LABS: PROTHROMBIN TIME PATIENT 50.4 SEC (11.7-14.0)
--- NOTE | 2016-09-09 21:33 | PHYS DOC ---
Past Medical History Past Medical History: CHF, COPD, Diabetes-Type II, DVT, GERD, Heart Disease, Hypertension, Hepatitis, Renal Failure Additional Past Medical Histor: Hep C; Gout; weakness; lack of coordination Past Surgical History: Other Additional Past Surgical Histo: dialysis fistula left upper arm; HD port R upper chest, unknown sx hx Alcohol Use: None Drug Use: None Adult General Chief Complaint Chief Complaint: ABNORMAL LABS HPI HPI Patient is a 61 year old female with a comp K past medical history. According the family she has a history of hypertension, diabetes, history of DVT, atrial fib, kidney disease, on hemodialysis, currently living at [facility] [address], presents to the ER today secondary to tarry stools and a low hemoglobin of 5.4 and facility. Upon arrival to the ER here patient had no significant complaints. Patient denies any fevers shaking chills. Patient has any vomiting or diarrhea. Patient has any dizziness or chest pain. Patient denies any shortness of breath. Patient has any cough cold or runny nose. Patient reports she is anicteric. Patient does not know when the bleeding started her with a change in her stool color started. Patient's physical exam here was unremarkable except for dark stools. This was sent to lab for Hemoccult test. Patient's heart rate was normal. Patient's abdomen was soft nontender no rebound or guarding. Patient had a positive bruit and thrill in her left upper extremity. Patient does have a dialysis port in her right upper chest. Patient's conjunctiva were pale. She didn't is alert awake oriented 3. Patient's ER course was significant for lapping drawn which showed a hemoglobin of 5.4. Patient had an INR of 6.0. In the ER patient had a type and cross drawn for 2 units of packed red blood cells as well as 2 units of FFP. Patient will need to be admitted to the ICU for further evaluation of her GI bleed. Patient was started on a proton pump inhibitor, GI as well as nephrology consult to assist in the care of this patient. The case was discussed with Dr. vizcarra and he agreed to assist with further care of this patient up in the ICU. Critical care time of 35 minutes were utilized for treatment and management of this patient's acute GI bleed with severe anemia and coagulopathy. Patient be admitted to the ICU for further evaluation. Review of Systems Review of Systems Constitutional: Denies fever or chills [] Eyes: Denies change in visual acuity, redness, or eye pain [] HENT: Denies nasal congestion or sore throat [] All other review systems are negative except as documented by the history of present illness portion. Current Medications Current Medications Current Medications Medications (Trade) Dose Ordered Sig/César Start Time Stop Time Status Last Admin Dose Admin Hydromorphone HCl (Dilaudid) 1 mg 1X ONCE 09/09/16 19:15 09/09/16 19:16 DC 09/09/16 19:21 1 MG Oxycodone/ Acetaminophen (Percocet 5/325) 1 tab 1X ONCE 09/09/16 19:00 09/09/16 19:01 DC Allergies Allergies Allergies Coded Allergies Type Severity Reaction Last Updated Verified erythromycin base Allergy Intermediate 08/19/16 Yes gabapentin Allergy Intermediate 08/22/16 Yes morphine Allergy Intermediate 08/22/16 Yes Physical Exam Physical Exam Constitutional: Well developed, well nourished, no acute distress, non-toxic appearance. [] HENT: Normocephalic, atraumatic, bilateral external ears normal, Eyes: PERRLA, EOMI, Neck: Normal range of motion, Cardiovascular:Heart rate regular rhythm, Lungs & Thorax: Bilateral breath sounds clear to auscultation [] Abdomen: Bowel sounds normal, soft, no tenderness, no masses, no pulsatile masses. [] Skin: Warm, dry, no erythema, no rash. [] Back: No tenderness, no CVA tenderness. [] Extremities: No tenderness, no cyanosis, no clubbing, Neurologic: Alert and oriented X 3, normal motor function, normal sensory function, no focal deficits noted. [] Psychologic: Affect normal, judgement normal, mood normal. [] Rectal dark stool. Hemoccult test sent to lab. Current Patient Data Vital Signs Vital Signs Date Time Temp Pulse Resp B/P Pulse Ox O2 Delivery O2 Flow Rate FiO2 09/09/16 18:10 98.5 87 22 106/64 93 Room Air 98.5 Lab Values Laboratory Tests Test 09/09/16 18:25 White Blood Count 11.1x10^3/uL (4.0-11.0) H Red Blood Count 2.18x10^6/uL (3.50-5.40) L Hemoglobin 5.6g/dL (12.0-15.5) *L Hematocrit 18.5% (36.0-47.0) *L Mean Corpuscular Volume 85fL (79-100) Mean Corpuscular Hemoglobin 26pg (25-35) Mean Corpuscular Hemoglobin Concent 30g/dL (31-37) L Red Cell Distribution Width 17.5% (11.5-14.5) H Platelet Count 243x10^3/uL (140-400) Neutrophils (%) (Auto) 58% (31-73) Lymphocytes (%) (Auto) 32% (24-48) Monocytes (%) (Auto) 8% (0-9) Eosinophils (%) (Auto) 2% (0-3) Basophils (%) (Auto) 1% (0-3) Neutrophils # (Auto) 6.4x10^3uL (1.8-7.7) Lymphocytes # (Auto) 3.6x10^3/uL (1.0-4.8) Monocytes # (Auto) 0.8x10^3/uL (0.0-1.1) Eosinophils # (Auto) 0.2x10^3/uL (0.0-0.7) Basophils # (Auto) 0.1x10^3/uL (0.0-0.2) Prothrombin Time 50.4SEC (11.7-14.0) H Prothrombin Time INR 6.0 (0.8-1.1) *H Sodium Level 140mmol/L (136-145) Potassium Level 4.3mmol/L (3.5-5.1) Chloride Level 101mmol/L (98-107) Carbon Dioxide Level 32mmol/L (21-32) Anion Gap 7 (6-14) Blood Urea Nitrogen 33mg/dL (7-20) H Creatinine 4.7mg/dL (0.6-1.0) H Estimated GFR (Cockcroft-Gault) 11.5 BUN/Creatinine Ratio 7 (6-20) Glucose Level 116mg/dL (70-99) H Calcium Level 8.5mg/dL (8.5-10.1) Total Bilirubin 0.4mg/dL (0.2-1.0) Aspartate Amino Transferase (AST) 35U/L (15-37) Alanine Aminotransferase (ALT) 10U/L (14-59) L Alkaline Phosphatase 97U/L (46-116) Total Protein 6.8g/dL (6.4-8.2) Albumin 1.6g/dL (3.4-5.0) L Albumin/Globulin Ratio 0.3 (1.0-1.7) L Laboratory Tests 09/09/16 18:25 Laboratory Tests 09/09/16 18:25 EKG EKG [] Interpretation Time: EKG reveals Radiology/Procedures Radiology/Procedures Chest x-ray unremarkable. No infiltrates or effusions. No evidence of CHF. As interpreted by me. [] Course & Med Decision Making Course & Med Decision Making Pertinent Labs and Imaging studies reviewed. (See chart for details) [] Dragon Disclaimer Dragon Disclaimer This electronic medical record was generated, in whole or in part, using a voice recognition dictation system. Departure Departure Impression: Primary Impression: ESRD on dialysis Additional Impressions: Elevated INR (international normalized ratio) due to prior anticoagulant medication ingestion GI bleed Coagulopathy Coumadin toxicity Anemia Disposition: 09 ADMITTED INPATIENT Admitting Physician: Jojo Vizcarra Condition: CRITICAL Referrals: ESTEVAN BLACK (PCP) Problem Qualifiers COLETTE ORDONEZ MD Sep 09, 2016 21:32
--- NOTE | 2016-09-09 23:23 | PDOC1 ---
History and Physical Date of Admission Date of Admission DATE: 09/09/16 TIME: 23:12 Identification/Chief Complaint Chief Complaint weakness Source Source: Caregiver, Chart review, Patient History of Present Illness History of Present Illness Miss PFEIFFER is a 61 year old female w. acute melena. She lives in a assisted due to mult falls and weakness, sent to ER today for tarry stools, labs drawn, Hgb was 5.4 Patient feels well, no complaint, and no vomiting or diarrhea. She missed HD today, was sent here. She has no recollection of change in stool. she has mult small ulcers 2, on buttock In ER, dark stools noted Hgb a little better than earlier today, 5.6, INR 6.0, on coumadin for afib Past Medical History Past Medical History hypertension, diabetes, history of DVT, atrial fib, kidney disease, on hemodialysis, Cardiovascular: CHF, HTN Pulmonary: Asthma GI: GERD Heme/Onc: Other Hepatobiliary: Hep A/B/C Musculoskeletal: low back pain Rheumatologic: No pertinent hx Infectious disease: No pertinent hx Renal/: Chronic renal failure Endocrine: Diabetes Past Surgical History Past Surgical History: Other Family History Family History: No Significant Social History Smoke: No ALCOHOL: none Drugs: None Current Problem List Problem List Problems Medical Problems: (1) Anemia Status: Acute (2) Coagulopathy Status: Acute (3) Coumadin toxicity Status: Acute (4) Elevated INR (international normalized ratio) due to prior anticoagulant medication ingestion Status: Acute (5) ESRD on dialysis Status: Acute (6) GI bleed Status: Acute Problems: Current Medications Current Medications Current Medications Oxycodone/ Acetaminophen (Percocet 5/325) 1 tab 1X ONCE PO ; Start 09/09/16 at 19:00; Stop 09/09/16 at 19:01; Status DC Hydromorphone HCl 1 mg 1 mg 1X ONCE IV Last administered on 09/09/16 19:21; Start 09/09/16 at 19:15; Stop 09/09/16 at 19:16; Status DC Pantoprazole Sodium/Sodium Chloride (Protonix Iv/Iv Sodium Chloride 0.9% 100ml) 100 ml @ 10 mls/hr 1X ONCE IV Last administered on 09/09/16 19:51; Start at 19:30; Stop 09/10/16 at 05:29 Ondansetron HCl 4 mg 4 mg PRN Q8HRS PRN IV NAUSEA/VOMITING Last administered on 09/09/16 19:51; Start 09/09/16 at 19:30; Stop 09/10/16 at 19:29 Sodium Chloride (Iv Sodium Chloride 0.9% 1000ml Bag) 1,000 ml @ 100 mls/hr Q10H IV Last administered on 09/09/16 19:51; Start 09/09/16 at 19:30; Stop at 19:29 Acetaminophen (Tylenol) 650 mg PRN Q4HRS PRN PO FEVER Last administered on 09/09 19:52; Start 09/09/16 at 19:30; Stop 09/10/16 at 19:29 Multi-Ingredient Mouthwash/Gargle (Gi Cocktail Single Dose) 15 ml 1X ONCE SWSW ; Start 09/09/16 at 23:30; Stop 09/09/16 at 23:31 Active Scripts Active Reported [Mylanta] Tylenol (Acetaminophen) 325 Mg Tablet 1 Tab PO PRN Q4HRS Fleet Enema (Na Phos,M-B/Na Phos,Di-Ba) 133 Ml Enema 1 Each RC ONCE Dulcolax (Bisacodyl) 10 Mg Supp.rect 10 Mg RC PRN DAILY PRN Zofran Odt (Ondansetron) 8 Mg Tab.rapdis 1 Tab PO Q8HRS Nitrostat (Nitroglycerin) 0.4 Mg Tab.subl 1 Tab SL UD Cyclobenzaprine Hcl 10 Mg Tablet 1 Tab PO TID Zepatier 50-100 mg Tablet (Elbasvir/Grazoprevir) 1 Each Tablet 1 Each PO [PhosLo] Coreg (Carvedilol) 25 Mg Tablet 1 Tab PO BID Aspirin 81 Mg Tab.chew 1 Tab PO DAILY Allopurinol 100 Mg Tablet 1 Tab PO DAILY Ventolin Hfa Inhaler (Albuterol Sulfate) 18 Gm Hfa.aer.ad 2 Puff INH Q4HRS Nephplex Rx Tablet (Vit B Cmplx No3/Fa/C/Biot/Zinc) 1 Each Tablet 1 Each PO Senokot (Sennosides) 8.6 Mg Tablet 1 Tab PO BID Oxycontin (Oxycodone HCl) 10 Mg Tab.er.12h 10 Mg PO BID Glycolax (Polyethylene Glycol 3350) 119 Gm Powder 17 Gm PO UD Percocet 10-325 Mg Tablet (Oxycodone/Acetaminophen) 1 Each Tablet 1 Tab PO Q4- 6HRS Vitamin D3 (Cholecalciferol (Vitamin D3)) 1,000 Unit Tablet 1 Tab PO DAILY Advair 250-50 Diskus (Fluticasone/Salmeterol) 1 Each Disk.w.dev 1 Puff IH BID Ipratropium Whitetail 0.2 Mg/1 Ml Solution 1 Vial NEB QID Lidoderm (Lidocaine) 700 Mg Adh..patch 1 Patch TP DAILY Nortriptyline Hcl 25 Mg Capsule 1 Cap PO QHS Ciprofloxacin Hcl 250 Mg Tablet 1 Tab PO BID Warfarin Sodium 2 Mg Tablet 1.5 Mg PO DAILY Gabapentin 300 Mg Capsule 300 Mg PO TID Zoloft (Sertraline Hcl) 100 Mg Tablet 1 Tab PO DAILY Allergies Allergies: Coded Allergies: erythromycin base (Verified Allergy, Intermediate, 08/19/16) gabapentin (Verified Allergy, Intermediate, 08/22/16) morphine (Verified Allergy, Intermediate, 08/22/16) ROS General: YES: Fatigue, Malaise, No: Appetite, Chills, Night Sweats, Other PSYCHOLOGICAL ROS: YES: Memory difficulties, No: Anxiety, Behavioral Disorder, Concentration difficultie, Decreased libido , Depression, Disorientation, Hallucinations, Hostility, Irritablity, Mood Swings, Obsessive thoughts, Other, Physical abuse, Sexual abuse, Sleep disturbances, Suicidal ideation Eyes: No Blurry vision, No Decreased vision, No Double vision, No Dry eyes, No Excessive tearing, No Eye Pain, No Itchy Eyes, No Loss of vision, No Other, No Photophobia, No Scotomata, No Uses contacts, No Uses glasses Respiratory: No: Cough, Hemoptysis, Orthopnea, Other, Pleuritic Pain, SOB with excertion, Shortness of breath, Sputum Changes, Stridor, Tachypnea, Wheezing Cardiovascular: No Chest Pain, No Edema, No Lt Headedness, No Orthopnea, No Other, No Palpitations, No Paroxysmal Noc. Dyspnea Gastrointestinal: Yes Melena, No Abdominal Pain, No Diarrhea, No Hematochezia, No Nausea, No Other, No Vomiting Genitourinary: No , No , No , No , No , No , No , No Discharge, No Dysuria, No Flank Pain, No Frequency, No Hematuria, No Incontinence, No Other, No Pain, No Retention, No Urgency Musculoskeletal: Yes Joint Swelling, Yes Muscular Weakness, No Gait Disturbance, No Joint Pain, No Joint Stiffness, No Other, No Pain In: , No Swelling In: Neurological: Yes Gait Disturbance, Yes Impaired Coord/balance, Yes Weakness, No Behavorial Changes, No Bowel/Bladder ControlChng, No Confusion, No Dizziness, No Headaches, No Memory Loss, No Numbness/Tingling, No Other, No Seizures, No Speech Problems, No Tremors, No Visual Changes Skin: No Acne, No Dry Skin, No Eczema, No Hair Changes, No Lumps, No Mole Changes, No Mottling, No Nail Changes, No Other, No Pruritus, No Rash, No Skin Lesion Changes Physical Exam General: Alert, Oriented X3, Cooperative, No acute distress, Other (some poor recall) HEENT: Atraumatic, PERRLA, EOMI, Mucous membr. moist/pink Lungs: Clear to auscultation, Normal air movement Heart: S1S2, no murmurs Abdomen: Normal bowel sounds, Soft Rectal Exam: not examined Extremities: No clubbing, No cyanosis Skin: No rashes Neuro: Normal gait, Normal speech Psych/Mental Status: Mental status NL, Mood NL Vitals Vitals Vital Signs Date Time Temp Pulse Resp B/P Pulse Ox O2 Delivery O2 Flow Rate FiO2 09/09/16 22:31 98.0 87 20 113/70 98.0 09/09/16 19:21 Room Air 09/09/16 18:10 93 Labs Labs Laboratory Tests Test 09/09/16 18:25 White Blood Count 11.1x10^3/uL (4.0-11.0) Red Blood Count 2.18x10^6/uL (3.50-5.40) Hemoglobin 5.6g/dL (12.0-15.5) Hematocrit 18.5% (36.0-47.0) Mean Corpuscular Volume 85fL (79-100) Mean Corpuscular Hemoglobin 26pg (25-35) Mean Corpuscular Hemoglobin Concent 30g/dL (31-37) Red Cell Distribution Width 17.5% (11.5-14.5) Platelet Count 243x10^3/uL (140-400) Neutrophils (%) (Auto) 58% (31-73) Lymphocytes (%) (Auto) 32% (24-48) Monocytes (%) (Auto) 8% (0-9) Eosinophils (%) (Auto) 2% (0-3) Basophils (%) (Auto) 1% (0-3) Neutrophils # (Auto) 6.4x10^3uL (1.8-7.7) Lymphocytes # (Auto) 3.6x10^3/uL (1.0-4.8) Monocytes # (Auto) 0.8x10^3/uL (0.0-1.1) Eosinophils # (Auto) 0.2x10^3/uL (0.0-0.7) Basophils # (Auto) 0.1x10^3/uL (0.0-0.2) Prothrombin Time 50.4SEC (11.7-14.0) Prothromb Time International Ratio 6.0 (0.8-1.1) Sodium Level 140mmol/L (136-145) Potassium Level 4.3mmol/L (3.5-5.1) Chloride Level 101mmol/L (98-107) Carbon Dioxide Level 32mmol/L (21-32) Anion Gap 7 (6-14) Blood Urea Nitrogen 33mg/dL (7-20) Creatinine 4.7mg/dL (0.6-1.0) Estimated GFR (Cockcroft-Gault) 11.5 BUN/Creatinine Ratio 7 (6-20) Glucose Level 116mg/dL (70-99) Calcium Level 8.5mg/dL (8.5-10.1) Total Bilirubin 0.4mg/dL (0.2-1.0) Aspartate Amino Transf (AST/SGOT) 35U/L (15-37) Alanine Aminotransferase (ALT/SGPT) 10U/L (14-59) Alkaline Phosphatase 97U/L (46-116) Total Protein 6.8g/dL (6.4-8.2) Albumin 1.6g/dL (3.4-5.0) Albumin/Globulin Ratio 0.3 (1.0-1.7) Laboratory Tests Test 09/09/16 18:25 White Blood Count 11.1x10^3/uL (4.0-11.0) Red Blood Count 2.18x10^6/uL (3.50-5.40) Hemoglobin 5.6g/dL (12.0-15.5) Hematocrit 18.5% (36.0-47.0) Mean Corpuscular Volume 85fL (79-100) Mean Corpuscular Hemoglobin 26pg (25-35) Mean Corpuscular Hemoglobin Concent 30g/dL (31-37) Red Cell Distribution Width 17.5% (11.5-14.5) Platelet Count 243x10^3/uL (140-400) Neutrophils (%) (Auto) 58% (31-73) Lymphocytes (%) (Auto) 32% (24-48) Monocytes (%) (Auto) 8% (0-9) Eosinophils (%) (Auto) 2% (0-3) Basophils (%) (Auto) 1% (0-3) Neutrophils # (Auto) 6.4x10^3uL (1.8-7.7) Lymphocytes # (Auto) 3.6x10^3/uL (1.0-4.8) Monocytes # (Auto) 0.8x10^3/uL (0.0-1.1) Eosinophils # (Auto) 0.2x10^3/uL (0.0-0.7) Basophils # (Auto) 0.1x10^3/uL (0.0-0.2) Prothrombin Time 50.4SEC (11.7-14.0) Prothromb Time International Ratio 6.0 (0.8-1.1) Sodium Level 140mmol/L (136-145) Potassium Level 4.3mmol/L (3.5-5.1) Chloride Level 101mmol/L (98-107) Carbon Dioxide Level 32mmol/L (21-32) Anion Gap 7 (6-14) Blood Urea Nitrogen 33mg/dL (7-20) Creatinine 4.7mg/dL (0.6-1.0) Estimated GFR (Cockcroft-Gault) 11.5 BUN/Creatinine Ratio 7 (6-20) Glucose Level 116mg/dL (70-99) Calcium Level 8.5mg/dL (8.5-10.1) Total Bilirubin 0.4mg/dL (0.2-1.0) Aspartate Amino Transf (AST/SGOT) 35U/L (15-37) Alanine Aminotransferase (ALT/SGPT) 10U/L (14-59) Alkaline Phosphatase 97U/L (46-116) Total Protein 6.8g/dL (6.4-8.2) Albumin 1.6g/dL (3.4-5.0) Albumin/Globulin Ratio 0.3 (1.0-1.7) VTE Prophylaxis Ordered VTE Prophylaxis Devices: Yes VTE Pharmacological Prophylaxi: Contraindicated Assessment/Plan Assessment/Plan Melena Acute blood loss anemia, GI bleed, upper vitals stable 2 u PRBC, 2 U FFP, PPI gtt admit to ICU, 38 min gen weakness and debility, acq. ESRD, HD MWF, has tunneled line coagulopathy, on coumadin for afib, sinus on tele, Vit K given severe malnutrition asthma obesity, back pain, htn Hx afib, now sinus JANNY GN MD Sep 09, 2016 23:23
[2016-09-09] MEDS ORDERED: BISACODYL 10 MG SUPP.RECT RC PRN (23:30)
[2016-09-09] MEDS ORDERED: ACETAMINOPHEN 325 MG TABLET. PO SCH (23:30)
[2016-09-09] MEDS ORDERED: LIDO:MAALOX:DONNATAL 1:1:1 15 ML SINGLE DOSE SWSW ONE (23:30)
[2016-09-09] MEDS ORDERED: ALBUTEROL SULFATE 2.5 MG/3 ML NEBU. NEB PRN (23:30)
[2016-09-10] VITALS (21 sets, daily range): BP systolic 103–137; BP diastolic 51–86
[2016-09-10] MEDS ORDERED: NON FORMULARY ITEM (Albuterol Sulfate (Ventolin Hfa Inhaler) 2 PUFF) INH SCH
[2016-09-10] MEDS ORDERED: PHYTONADIONE (VIT K1) 10 MG in IV NORMAL SALINE 50ML 50 ML IV ONE ×2
[2016-09-10] MEDS: OXYCODONE/APAP 10/325 TABLET. PO PRN ×3 (00:34→22:38)
--- NOTE | 2016-09-10 01:12 | ACF ---
Admission Forms Criteria GASTROINTESTINAL BLEEDING, UPPER Clinical Indications for Admission to Inpatient Care ( Place 'X' for any and all applicable criteria): Admission is indicated for ANY ONE of the following(1)(2)(3)(4)(5)(6): [ ]I. Active bleeding (eg, fresh voluminous blood in emesis or nasogastric aspirate) [ ]II. Associated conditions requiring hospitalization (eg, perforation, obstruction from ulcer) [ ]III. Inpatient admission required rather than observation care (Also use Gastrointestinal Bleeding, Upper: Observation Care as appropriate) because of ANY ONE of the following: [ ]a) Hemodynamic instability that is severe or persistent [ ]b) Anemia requiring inpatient admission as indicated by ALL of the following: [ ]1) Presence of significant clinical finding indicated by ANY ONE of the following: [ ]A. Tachycardia for age [ ]B. Orthostatic vital sign changes [ ]C. Cognitive impairment [ ]D. Heart failure [ ]E. Chest pain [ ]F. Exertional dyspnea [ ]G. Other findings suggesting inadequate perfusion (eg, peripheral or myocardial ischemia, end organ dysfunction) [ ]2) Initial (eg, emergency department, observation care) treatment with transfusion or volume replacement is judged inappropriate (due to severity of the finding) or has been ineffective [ ]c) Severe pain requiring acute inpatient management [ ]d) High-risk low platelet count [ ]e) IV fluid to replace significant ongoing losses (greater than 3 L/m2 per day) [ ]f) Immediate inpatient surgery [ ]g) Other condition, treatment or monitoring requiring inpatient admission [ ]IV. Severe liver disease (eg, cirrhosis) [ ]V. Significant active comorbid disease [ ]. Anticoagulation therapy [ ]VII. High-risk endoscopic features (arterial bleeding, adherent clot, nonbleeding visible vessel, varices, flat red spots, ulcer size greater than 2 cm, or portal hypertensive gastropathy) [ ]VIII. Previous aortic graft placement or known aortic aneurysm [X]IX. Coagulopathy [ ]X. Syncope Extended stay beyond goal length of stay may be needed for(1)(2): [ ]a) Emergency surgery [ ]b) Varices [ ]c) Coagulation abnormalities [ ]d) Recurrent, obscure, or persistent bleeding or continued Hemodynamic instability [ ]e) Associated conditions requiring surgery (eg, perforated gastric ulcer, gastric outlet obstruction) [ ]f) Active comorbidities (eg, renal insufficiency, heart failure, pre- existing liver disease) The original [facility] content created by [facility] has been revised. The portions of the content which have been revised are identified through the use of italic text or in bold, and [facility] has neither reviewed nor approved the modified material. All other unmodified content is copyright [facility] [employer]. Please see references footnoted in the original [facility] edition 2016 Admission Criteria Met?: Yes STACI JOSEPH Sep 10, 2016 01:12
[2016-09-10] MEDS: IV NORMAL SALINE 1000ML BAG 1,000 ML IV SCH (05:30)
[2016-09-10] MEDS: ONDANSETRON ODT 4 MG TAB.RAPDIS PO SCH ×3 (05:58→21:13)
[2016-09-10 07:24] LABS: NEG OBC FOB NEG; POS OBC FOB POS
[2016-09-10] MEDS: BUDESONIDE 0.5 MG/2 ML NEBU NEB SCH ×2 (07:59→20:00)
[2016-09-10] MEDS: IPRATRPIUM/ALBUTEROL 0.5/2.5MG 3 ML NEBU. NEB SCH ×4 (07:59→20:00)
[2016-09-10] MEDS: CARVEDILOL 12.5 MG TABLET PO SCH ×2 (08:00→17:39)
[2016-09-10] MEDS: ALLOPURINOL 100 MG TABLET. PO SCH (09:00)
[2016-09-10] MEDS ORDERED: NON FORMULARY ITEM (Fluticasone/Salmeterol (Advair 250-50 Diskus) 1 PUFF) IH SCH (09:00)
[2016-09-10] MEDS: SERTRALINE 50 MG TABLET. PO SCH (09:00)
[2016-09-10] MEDS: LIDOCAINE (700MG/PATCH) PATCH. TP SCH (09:00)
[2016-09-10] MEDS ORDERED: IPRATROPIUM BROMIDE 0.5 MG/2.5 ML NEBU. NEB SCH (09:00)
[2016-09-10] MEDS: GABAPENTIN 300 MG CAPSULE. PO SCH (09:00)
[2016-09-10] MEDS: OXYCODONE ER 10 MG TAB.ER.12H. PO SCH ×2 (09:00→21:09)
--- NOTE | 2016-09-10 09:20 | RAD ---
Portable chest, 09/09/2016: History: GI tract bleed Comparison is made to a study from 08/19/2016. A right jugular multilumen central venous catheter extends into the inferior aspect of the superior vena cava. The heart is mildly enlarged. There is tortuosity of the thoracic aorta. The pulmonary vascularity is normal. There appears to be minimal left basilar scarring. No acute infiltrates are seen. There is no evidence of pleural fluid. Moderate spurring is present in the spine. IMPRESSION: 1. Cardiomegaly. 2. No acute abnormality is detected.
--- NOTE | 2016-09-10 09:21 | PDOC2 ---
CONSULT Date of Consult Date of Consult DATE: 09/10/16 TIME: 09:13 Reason for Consult Reason for Consult: ESRD dialysis Referring Physician Referring Physician: Dr Layton Identification/Chief Complaint Chief Complaint Anemia Problems: Source Source: Chart review, Patient History of Present Illness Reason for Visit: as dictated Past Medical History Cardiovascular: CHF, HTN Pulmonary: Asthma GI: GERD, Other (hepatitis C and ? Cirrhosis) Heme/Onc: Other Hepatobiliary: Hep A/B/C Musculoskeletal: low back pain Rheumatologic: No pertinent hx Infectious disease: No pertinent hx Renal/: Chronic renal failure Endocrine: Diabetes Past Surgical History Past Surgical History: Other Family History Family History: No Significant Social History No ALCOHOL: none Drugs: None Lives: [facility] Current Problem List Problem List Problems Medical Problems: (1) Anemia Status: Acute (2) Coagulopathy Status: Acute (3) Coumadin toxicity Status: Acute (4) Elevated INR (international normalized ratio) due to prior anticoagulant medication ingestion Status: Acute (5) ESRD on dialysis Status: Acute (6) GI bleed Status: Acute Current Medications Current Medications Current Medications Oxycodone/ Acetaminophen (Percocet 5/325) 1 tab 1X ONCE PO ; Start 09/09/16 at 19:00; Stop 09/09/16 at 19:01; Status DC Hydromorphone HCl 1 mg 1 mg 1X ONCE IV Last administered on 09/09/16 19:21; Start 09/09/16 at 19:15; Stop 09/09/16 at 19:16; Status DC Pantoprazole Sodium/Sodium Chloride (Protonix Iv/Iv Sodium Chloride 0.9% 100ml) 100 ml @ 10 mls/hr 1X ONCE IV Last administered on 09/09/16 19:51; Start at 19:30; Stop 09/10/16 at 05:29; Status DC Ondansetron HCl 4 mg 4 mg PRN Q8HRS PRN IV NAUSEA/VOMITING Last administered on 09/09/16 19:51; Start 09/09/16 at 19:30; Stop 09/10/16 at 19:29 Sodium Chloride (Iv Sodium Chloride 0.9% 1000ml Bag) 1,000 ml @ 100 mls/hr Q10H IV Last administered on 09/09/16 19:51; Start 09/09/16 at 19:30; Stop at 06:00; Status DC Acetaminophen (Tylenol) 650 mg PRN Q4HRS PRN PO FEVER Last administered on 09/09 19:52; Start 09/09/16 at 19:30; Stop 09/10/16 at 19:29 Multi-Ingredient Mouthwash/Gargle 15 ml 15 ml 1X ONCE SWSW Last administered on 09/09/16 23:41; Start 09/09/16 at 23:30; Stop 09/09/16 at 23:31; Status DC Phytonadione/ Sodium Chloride (Vitamin K/Iv Sodium Chloride 0.9% 50ml) 51 ml @ 102 mls/hr 1X ONCE IV Last administered on 09/10/16 02:07; Start 09/10/16 at 00:00; Stop 09/10/16 at 00:29; Status DC Acetaminophen (Tylenol) 325 mg PRN Q4HRS PO ; Start 09/09/16 at 23:30; Stop at 23:30; Status DC Allopurinol (Zyloprim) 100 mg DAILY PO ; Start 09/10/16 at 09:00 Bisacodyl (Dulcolax Supp) 10 mg PRN DAILY PRN RC CONSTIPATION; Start 09/09/16 at 23:30 Cyclobenzaprine HCl (Flexeril) 10 mg PRN TID PRN PO back pain; Start 09/09/16 at 23:30 Gabapentin (Neurontin) 300 mg DAILY PO ; Start 09/10/16 at 09:00 Ipratropium [place] (Atrovent) 0.2 mg QID NEB ; Start 09/10/16 at 09:00; Status UNV Lidocaine (Lidoderm) 1 patch DAILY TP ; Start 09/10/16 at 09:00 Nortriptyline HCl (Pamelor) 25 mg QHS PO ; Start 09/10/16 at 21:00 Oxycodone HCl (Oxycontin) 10 mg BID PO ; Start 09/10/16 at 09:00 Oxycodone/ Acetaminophen (Percocet 10/325) 1 tab PRN Q4HRS PRN PO SEVERE PAIN Last administered on 09/10/16 00:34; Start 09/09/16 at 23:30 Non-Formulary Medication 2 puff Q4HRS INH FOR ASTHMA; Start 09/10/16 at 00:00; Status UNV Carvedilol (Coreg) 25 mg BIDWMEALS PO ; Start 09/10/16 at 08:00 Non-Formulary Medication 1 puff BID IH ; Start 09/10/16 at 09:00; Status UNV Ondansetron HCl (Zofran Odt) 8 mg Q8HRS PO ; Start 09/10/16 at 06:00 Sertraline HCl (Zoloft) 100 mg DAILY PO ; Start 09/10/16 at 09:00 Labetalol HCl (Normodyne) 20 mg PRN Q2HR PRN IVP HYPERTENSION, SEE COMMENTS; Start 09/09/16 at 23:30 Albuterol/ Ipratropium (Duoneb) 3 ml RTQID NEB Last administered on 09/10/16 07:59; Start 09/10/16 at 08:00 Budesonide (Pulmicort) 0.5 mg RTBID NEB Last administered on 09/10/16 07:59; Start 09/10/16 at 08:00 Albuterol Sulfate (Ventolin Neb Soln) 2.5 mg PRN Q4HRS PRN NEB SHORTNESS OF BREATH; Start 09/09/16 at 23:30 Active Scripts Active Reported [Mylanta] Tylenol (Acetaminophen) 325 Mg Tablet 1 Tab PO PRN Q4HRS Fleet Enema (Na Phos,M-B/Na Phos,Di-Ba) 133 Ml Enema 1 Each RC ONCE Dulcolax (Bisacodyl) 10 Mg Supp.rect 10 Mg RC PRN DAILY PRN Zofran Odt (Ondansetron) 8 Mg Tab.rapdis 1 Tab PO Q8HRS Nitrostat (Nitroglycerin) 0.4 Mg Tab.subl 1 Tab SL UD Cyclobenzaprine Hcl 10 Mg Tablet 1 Tab PO TID Zepatier 50-100 mg Tablet (Elbasvir/Grazoprevir) 1 Each Tablet 1 Each PO [PhosLo] Coreg (Carvedilol) 25 Mg Tablet 1 Tab PO BID Aspirin 81 Mg Tab.chew 1 Tab PO DAILY Allopurinol 100 Mg Tablet 1 Tab PO DAILY Ventolin Hfa Inhaler (Albuterol Sulfate) 18 Gm Hfa.aer.ad 2 Puff INH Q4HRS Nephplex Rx Tablet (Vit B Cmplx No3/Fa/C/Biot/Zinc) 1 Each Tablet 1 Each PO Senokot (Sennosides) 8.6 Mg Tablet 1 Tab PO BID Oxycontin (Oxycodone HCl) 10 Mg Tab.er.12h 10 Mg PO BID Glycolax (Polyethylene Glycol 3350) 119 Gm Powder 17 Gm PO UD Percocet 10-325 Mg Tablet (Oxycodone/Acetaminophen) 1 Each Tablet 1 Tab PO Q4- 6HRS Vitamin D3 (Cholecalciferol (Vitamin D3)) 1,000 Unit Tablet 1 Tab PO DAILY Advair 250-50 Diskus (Fluticasone/Salmeterol) 1 Each Disk.w.dev 1 Puff IH BID Ipratropium [place] 0.2 Mg/1 Ml Solution 1 Vial NEB QID Lidoderm (Lidocaine) 700 Mg Adh..patch 1 Patch TP DAILY Nortriptyline Hcl 25 Mg Capsule 1 Cap PO QHS Ciprofloxacin Hcl 250 Mg Tablet 1 Tab PO BID Warfarin Sodium 2 Mg Tablet 1.5 Mg PO DAILY Gabapentin 300 Mg Capsule 300 Mg PO TID Zoloft (Sertraline Hcl) 100 Mg Tablet 1 Tab PO DAILY Allergies Allergies: Coded Allergies: erythromycin base (Verified Allergy, Intermediate, 08/19/16) morphine (Verified Allergy, Intermediate, 08/22/16) ROS Review of System Unabel to reliably obtain from pt but as below as best ascertainable GEN: no Fevers no Chills EYES: no new Visual Complaints ENT: no EN Drainage no Hearing deficiets CVS: no Orthopnea no CP RESP: no SOB no CASAS GI: min Nausea no Vomiting + Abd Pain : no Dysuria no Urgency HEME: no easy bruising no Palp Ly Nodes NEURO no Focal Weakness no Sz PSYCH: no Suicidal Ideation ? Depression SKIN: no Rashes ENDO: no Polyuria or Polydipsia no Hot/Cold Intolerance MU SK: occ Arthraigia no Myalgia Physical Exam Physical Exam General Appearance: Awake rel more Alert Oriented x 1-2; somewhat lethargic In no Distress; Obese AAF Eyes: Sclera anicteric Conjunctiva Pallish EN: No EN Drainage Mucous Memb. dryish - Somewhat Hirsuit Neck: no JVD no JVP Supple no Thyromegaly; short thick neck CVS: S1 S2 soft Murmur No Gallop No Rub no Edema Resp: no Rales no Rhonchi no Acc. Muscle use GI: BS +ve NO Bruit Non Tender x min in Epigastrium Non Distended : no CVA tenderness; no Suprapubic Tenderness SKIN: no Rashes Breast Exam deferred Mu.Sk: Adequate ROM no Muscle Atrophy Heme: Unable to palpate Obvious LAD no palp Splenomegaly NEURO: no Asterixis; Unable to follow commands Psych: ? Depressed and flattish afeect no Active hallucination ASSESSMENT/PLAN Assessment/Plan ESRD.HD later today duarte if she needs furtehr BT ; will reval on HD. Next HD on MWF schedule Anemia:? asso with bloodloss/ GI bleed. Some resistance to Epogen from recent Cath infection cannot be ruled out. Transfuse with next HD as needed. Hyper TN: Hold BP meds until GI bleed issues are sorted out Sev. Hypoalbuminemia - ? due to recent infection vs Liver Dz asso with H/o Hep C Discussed Plan of Care at length with pt and JUICE WEIGHER Vital Signs Vital Signs Date Time Temp Pulse Resp B/P Pulse Ox O2 Delivery O2 Flow Rate FiO2 09/10/16 08:01 100 Room Air 09/10/16 08:00 97.9 85 13 137/82 97.9 Labs Labs Laboratory Tests Test 09/09/16 18:25 09/10/16 00:10 White Blood Count 11.1x10^3/uL (4.0-11.0) Red Blood Count 2.18x10^6/uL (3.50-5.40) Hemoglobin 5.6g/dL (12.0-15.5) Hematocrit 18.5% (36.0-47.0) Mean Corpuscular Volume 85fL (79-100) Mean Corpuscular Hemoglobin 26pg (25-35) Mean Corpuscular Hemoglobin Concent 30g/dL (31-37) Red Cell Distribution Width 17.5% (11.5-14.5) Platelet Count 243x10^3/uL (140-400) Neutrophils (%) (Auto) 58% (31-73) Lymphocytes (%) (Auto) 32% (24-48) Monocytes (%) (Auto) 8% (0-9) Eosinophils (%) (Auto) 2% (0-3) Basophils (%) (Auto) 1% (0-3) Neutrophils # (Auto) 6.4x10^3uL (1.8-7.7) Lymphocytes # (Auto) 3.6x10^3/uL (1.0-4.8) Monocytes # (Auto) 0.8x10^3/uL (0.0-1.1) Eosinophils # (Auto) 0.2x10^3/uL (0.0-0.7) Basophils # (Auto) 0.1x10^3/uL (0.0-0.2) Prothrombin Time 50.4SEC (11.7-14.0) Prothromb Time International Ratio 6.0 (0.8-1.1) Sodium Level 140mmol/L (136-145) Potassium Level 4.3mmol/L (3.5-5.1) Chloride Level 101mmol/L (98-107) Carbon Dioxide Level 32mmol/L (21-32) Anion Gap 7 (6-14) Blood Urea Nitrogen 33mg/dL (7-20) Creatinine 4.7mg/dL (0.6-1.0) Estimated GFR (Cockcroft-Gault) 11.5 BUN/Creatinine Ratio 7 (6-20) Glucose Level 116mg/dL (70-99) Calcium Level 8.5mg/dL (8.5-10.1) Total Bilirubin 0.4mg/dL (0.2-1.0) Aspartate Amino Transf (AST/SGOT) 35U/L (15-37) Alanine Aminotransferase (ALT/SGPT) 10U/L (14-59) Alkaline Phosphatase 97U/L (46-116) Total Protein 6.8g/dL (6.4-8.2) Albumin 1.6g/dL (3.4-5.0) Albumin/Globulin Ratio 0.3 (1.0-1.7) Stool Occult Blood Positive (NEG) Laboratory Tests Test 09/09/16 18:25 09/10/16 00:10 White Blood Count 11.1x10^3/uL (4.0-11.0) Red Blood Count 2.18x10^6/uL (3.50-5.40) Hemoglobin 5.6g/dL (12.0-15.5) Hematocrit 18.5% (36.0-47.0) Mean Corpuscular Volume 85fL (79-100) Mean Corpuscular Hemoglobin 26pg (25-35) Mean Corpuscular Hemoglobin Concent 30g/dL (31-37) Red Cell Distribution Width 17.5% (11.5-14.5) Platelet Count 243x10^3/uL (140-400) Neutrophils (%) (Auto) 58% (31-73) Lymphocytes (%) (Auto) 32% (24-48) Monocytes (%) (Auto) 8% (0-9) Eosinophils (%) (Auto) 2% (0-3) Basophils (%) (Auto) 1% (0-3) Neutrophils # (Auto) 6.4x10^3uL (1.8-7.7) Lymphocytes # (Auto) 3.6x10^3/uL (1.0-4.8) Monocytes # (Auto) 0.8x10^3/uL (0.0-1.1) Eosinophils # (Auto) 0.2x10^3/uL (0.0-0.7) Basophils # (Auto) 0.1x10^3/uL (0.0-0.2) Prothrombin Time 50.4SEC (11.7-14.0) Prothromb Time International Ratio 6.0 (0.8-1.1) Sodium Level 140mmol/L (136-145) Potassium Level 4.3mmol/L (3.5-5.1) Chloride Level 101mmol/L (98-107) Carbon Dioxide Level 32mmol/L (21-32) Anion Gap 7 (6-14) Blood Urea Nitrogen 33mg/dL (7-20) Creatinine 4.7mg/dL (0.6-1.0) Estimated GFR (Cockcroft-Gault) 11.5 BUN/Creatinine Ratio 7 (6-20) Glucose Level 116mg/dL (70-99) Calcium Level 8.5mg/dL (8.5-10.1) Total Bilirubin 0.4mg/dL (0.2-1.0) Aspartate Amino Transf (AST/SGOT) 35U/L (15-37) Alanine Aminotransferase (ALT/SGPT) 10U/L (14-59) Alkaline Phosphatase 97U/L (46-116) Total Protein 6.8g/dL (6.4-8.2) Albumin 1.6g/dL (3.4-5.0) Albumin/Globulin Ratio 0.3 (1.0-1.7) Stool Occult Blood Positive (NEG) HERMELINDA MCINTYRE MD Sep 10, 2016 09:21
[2016-09-10 09:25] LABS: BASO % 0 % (0-3); EOS % 2 % (0-3); HEMATOCRIT 21.5 % (36.0-47.0); HEMOGLOBIN 7.1 g/dL (12.0-15.5); LYMPH # 1.7 x10^3/uL (1.0-4.8); LYMPH % 18 % (24-48); MEAN CORPUSCULAR HEMOGLOBIN 27 pg (25-35); MEAN CORPUSCULAR HGB CONC 33 g/dL (31-37); MEAN CORPUSCULAR VOLUME 82 fL (79-100); MONO % 5 % (0-9); NEUT % 75 % (31-73); PLATELET COUNT 218 x10^3/uL (140-400); RED BLOOD COUNT 2.61 x10^6/uL (3.50-5.40); RED CELL DISTRIBUTION WIDTH 16.1 % (11.5-14.5); WHITE BLOOD COUNT 9.5 x10^3/uL (4.0-11.0)
--- NOTE | 2016-09-10 09:34 | PDOC2 ---
GI CONSULT Reason For Consult: GI Bleed HPI: HPI: 61 y/o AA female [place] w/ tarry stools. Labs WBC 11.1, Hgb 5.4 , INR 6 (h/o A Fib on Coumadin), BUN 33, Cr 4.7 (h/o ESRD on HD), heme positive stools. Note earlier this month Hgb in 7-8 range. Has been transfused pRBCs, FFP w/ repeat labs pending. Per RN, 1 dark stool overnight. Pt reports ~5 dark watery stools yesterday w/ some RLQ discomfort. H/o colonoscopy at another facility last year, reportedly normal. Denies reflux/heartburn, dysphasia, weight loss, change in appetite, constipation. No previous EGD. PMH: PMH: Per chart - DM, A Fib, ESRD on HD, DVT, asthma, GERD, Hep C, CHF, COPD, HTN, low back pain, C section, ventral hernia repair. FH: Family History: No pertinent hx (denies GI cancers) Social History: Smoke: No ALCOHOL: none Drugs: None ROS: GEN: Denies fevers, chills, sweats HEENT: Denies blurred vision, sore throat CV: Denies chest pain RESP: Denies shortness of air, cough GI: Per HPI : Denies hematuria, dysuria ENDO: Denies weight changes NEURO: Denies confusion, dizziness MSK: Denies weakness, joint pain/swelling SKIN: Denies jaundice, pruritus VItals: Vitals: Vital Signs Date Time Temp Pulse Resp B/P Pulse Ox O2 Delivery O2 Flow Rate FiO2 09/10/16 08:01 100 Room Air 09/10/16 08:00 97.9 85 13 137/82 97.9 Labs: Labs: Laboratory Tests Test 09/09/16 18:25 09/10/16 00:10 White Blood Count 11.1x10^3/uL (4.0-11.0) Red Blood Count 2.18x10^6/uL (3.50-5.40) Hemoglobin 5.6g/dL (12.0-15.5) Hematocrit 18.5% (36.0-47.0) Mean Corpuscular Volume 85fL (79-100) Mean Corpuscular Hemoglobin 26pg (25-35) Mean Corpuscular Hemoglobin Concent 30g/dL (31-37) Red Cell Distribution Width 17.5% (11.5-14.5) Platelet Count 243x10^3/uL (140-400) Neutrophils (%) (Auto) 58% (31-73) Lymphocytes (%) (Auto) 32% (24-48) Monocytes (%) (Auto) 8% (0-9) Eosinophils (%) (Auto) 2% (0-3) Basophils (%) (Auto) 1% (0-3) Neutrophils # (Auto) 6.4x10^3uL (1.8-7.7) Lymphocytes # (Auto) 3.6x10^3/uL (1.0-4.8) Monocytes # (Auto) 0.8x10^3/uL (0.0-1.1) Eosinophils # (Auto) 0.2x10^3/uL (0.0-0.7) Basophils # (Auto) 0.1x10^3/uL (0.0-0.2) Prothrombin Time 50.4SEC (11.7-14.0) Prothromb Time International Ratio 6.0 (0.8-1.1) Sodium Level 140mmol/L (136-145) Potassium Level 4.3mmol/L (3.5-5.1) Chloride Level 101mmol/L (98-107) Carbon Dioxide Level 32mmol/L (21-32) Anion Gap 7 (6-14) Blood Urea Nitrogen 33mg/dL (7-20) Creatinine 4.7mg/dL (0.6-1.0) Estimated GFR (Cockcroft-Gault) 11.5 BUN/Creatinine Ratio 7 (6-20) Glucose Level 116mg/dL (70-99) Calcium Level 8.5mg/dL (8.5-10.1) Total Bilirubin 0.4mg/dL (0.2-1.0) Aspartate Amino Transf (AST/SGOT) 35U/L (15-37) Alanine Aminotransferase (ALT/SGPT) 10U/L (14-59) Alkaline Phosphatase 97U/L (46-116) Total Protein 6.8g/dL (6.4-8.2) Albumin 1.6g/dL (3.4-5.0) Albumin/Globulin Ratio 0.3 (1.0-1.7) Stool Occult Blood Positive (NEG) Allergies: Coded Allergies: erythromycin base (Verified Allergy, Intermediate, 08/19/16) morphine (Verified Allergy, Intermediate, 08/22/16) Medications: Current Medications Medications (Trade) Dose Ordered Sig/César Route PRN Reason Start Time Stop Time Status Last Admin Dose Admin Hydromorphone HCl 1 mg 1 mg 1X ONCE IV 09/09/16 19:15 09/09/16 19:16 DC 09/09/16 19:21 Pantoprazole Sodium/Sodium Chloride (Protonix Iv/Iv Sodium Chloride 0.9% 100ml) 100 ml @ 10 mls/hr 1X ONCE IV 09/09/16 19:30 09/10/16 05:29 DC 09/09/16 19:51 Ondansetron HCl 4 mg 4 mg PRN Q8HRS PRN IV NAUSEA/VOMITING 09/09/16 19:30 09/10/16 19:29 09/09/16 19:51 Sodium Chloride (Iv Sodium Chloride 0.9% 1000ml Bag) 1,000 ml @ 100 mls/hr Q10H IV 09/09/16 19:30 09/10/16 06:00 DC 09/09/16 19:51 Acetaminophen (Tylenol) 650 mg PRN Q4HRS PRN PO FEVER 09/09/16 19:30 09/10/16 19:29 09/09/16 19:52 Multi-Ingredient Mouthwash/Gargle 15 ml 15 ml 1X ONCE SWSW 09/09/16 23:30 09/09/16 23:31 DC 09/09/16 23:41 Phytonadione/ Sodium Chloride (Vitamin K/Iv Sodium Chloride 0.9% 50ml) 51 ml @ 102 mls/hr 1X ONCE IV 09/10/16 00:00 09/10/16 00:29 DC 09/10/16 02:07 Oxycodone/ Acetaminophen (Percocet 10/325) 1 tab PRN Q4HRS PRN PO SEVERE PAIN 09/09/16 23:30 09/10/16 00:34 Albuterol/ Ipratropium (Duoneb) 3 ml RTQID NEB 09/10/16 08:00 09/10/16 07:59 Budesonide (Pulmicort) 0.5 mg RTBID NEB 09/10/16 08:00 09/10/16 07:59 Imaging: Imaging: CXR 09/09/16 IMPRESSION: 1. Cardiomegaly. 2. No acute abnormality is detected. CT A/P 07/2016 The lung bases are essentially clear. Cardiomegaly. Lack of IV contrast limits evaluation of abdominal viscera, however the liver, spleen and pancreas are normal. Both adrenal glands and bilateral kidneys are normal in size without hydronephrosis or nephrolithiasis. Aorta is normal in caliber without aneurysm. The small and large bowel loops are nondilated and unremarkable. Scattered stool throughout the colon. Appendix is not clearly visualized, no secondary signs of acute appendicitis noted. There are postoperative changes of hernia repair with hernia repair mesh in the left mid and lower abdomen Distal ureters are nondilated. Urinary bladder is decompressed and thick walled. [Uterus is likely surgically absent. No adnexal masses seen.] No free or focal fluid collections are identified. Diffuse spondylotic changes and multilevel disc degenerative changes are noted. Impression: No acute intra-abdominal or pelvic process detected. PE: GEN: NAD HEENT: Atraumatic, PERRL LUNGS: CTAB HEART: S1S2 ABD: NABS, S/ND, vague RLQ tenderness EXTREMITY: No edema SKIN: No rashes, no jaundice NEURO/PSYCH: A & O 3 A/P: A/P: Anemia, dark stools -Hgb 5.4, earlier this month 7-8 -tarry stools at [place] yesterday, 1 overnight -vague RLQ pain -has been transfused H/o A Fib on Coumadin w/ elevated INR -has received FFP Hep C ESRD on HD -- Possibly related to elevated INR. Await repeated labs, start PPI, observe. Note I did discuss possibility of EGD at some point which she declined. JORGE YANG Sep 10, 2016 09:34
[2016-09-10 09:45] LABS: INR 1.9 (0.8-1.1); PROTHROMBIN TIME PATIENT 20.4 SEC (11.7-14.0)
--- NOTE | 2016-09-10 09:51 | PDOC ---
PROGRESS NOTES Chief Complaint Chief Complaint CC Melena A/P Acute blood loss anemia, GI bleed, ESRD, Coagulopathy, on Coumadin for afib, HTN Asthma Obesity, back pain, Plan s/p FFP and PRBC hemoglobin stable, no active bleeding holding Coumadin on Protonix gtt possible EGD today by GI monitor INR GI consult monitor hemoglobin q6hs HD per nephrology supportive care resume home medications. History of Present Illness History of Present Illness NO GI BLEEDING NO CHEST PAIN NO FEVER NO ACUTE EVENTS. Vitals Vitals Vital Signs Date Time Temp Pulse Resp B/P Pulse Ox O2 Delivery O2 Flow Rate FiO2 09/10/16 09:00 86 14 134/80 100 Room Air 09/10/16 08:00 97.9 97.9 Physical Exam General: Alert, Oriented X3, Cooperative, No acute distress, Other Heart: Normal S1, Normal S2 Lungs: Clear Abdomen: Normal bowel sounds, Soft Extremities: No clubbing, No cyanosis Skin: No rashes Labs LABS Laboratory Tests Test 09/09/16 18:25 09/10/16 00:10 09/10/16 08:50 White Blood Count 11.1x10^3/uL (4.0-11.0) 9.5x10^3/uL (4.0-11.0) Red Blood Count 2.18x10^6/uL (3.50-5.40) 2.61x10^6/uL (3.50-5.40) Hemoglobin 5.6g/dL (12.0-15.5) 7.1g/dL (12.0-15.5) Hematocrit 18.5% (36.0-47.0) 21.5% (36.0-47.0) Mean Corpuscular Volume 85fL (79-100) 82fL (79-100) Mean Corpuscular Hemoglobin 26pg (25-35) 27pg (25-35) Mean Corpuscular Hemoglobin Concent 30g/dL (31-37) 33g/dL (31-37) Red Cell Distribution Width 17.5% (11.5-14.5) 16.1% (11.5-14.5) Platelet Count 243x10^3/uL (140-400) 218x10^3/uL (140-400) Neutrophils (%) (Auto) 58% (31-73) 75% (31-73) Lymphocytes (%) (Auto) 32% (24-48) 18% (24-48) Monocytes (%) (Auto) 8% (0-9) 5% (0-9) Eosinophils (%) (Auto) 2% (0-3) 2% (0-3) Basophils (%) (Auto) 1% (0-3) 0% (0-3) Neutrophils # (Auto) 6.4x10^3uL (1.8-7.7) 7.1x10^3uL (1.8-7.7) Lymphocytes # (Auto) 3.6x10^3/uL (1.0-4.8) 1.7x10^3/uL (1.0-4.8) Monocytes # (Auto) 0.8x10^3/uL (0.0-1.1) 0.4x10^3/uL (0.0-1.1) Eosinophils # (Auto) 0.2x10^3/uL (0.0-0.7) 0.2x10^3/uL (0.0-0.7) Basophils # (Auto) 0.1x10^3/uL (0.0-0.2) 0.0x10^3/uL (0.0-0.2) Prothrombin Time 50.4SEC (11.7-14.0) Prothromb Time International Ratio 6.0 (0.8-1.1) Sodium Level 140mmol/L (136-145) Potassium Level 4.3mmol/L (3.5-5.1) Chloride Level 101mmol/L (98-107) Carbon Dioxide Level 32mmol/L (21-32) Anion Gap 7 (6-14) Blood Urea Nitrogen 33mg/dL (7-20) Creatinine 4.7mg/dL (0.6-1.0) Estimated GFR (Cockcroft-Gault) 11.5 BUN/Creatinine Ratio 7 (6-20) Glucose Level 116mg/dL (70-99) Calcium Level 8.5mg/dL (8.5-10.1) Total Bilirubin 0.4mg/dL (0.2-1.0) Aspartate Amino Transf (AST/SGOT) 35U/L (15-37) Alanine Aminotransferase (ALT/SGPT) 10U/L (14-59) Alkaline Phosphatase 97U/L (46-116) Total Protein 6.8g/dL (6.4-8.2) Albumin 1.6g/dL (3.4-5.0) Albumin/Globulin Ratio 0.3 (1.0-1.7) Stool Occult Blood Positive (NEG) Assessment and Plan Assessmemt and Plan Problems Medical Problems: (1) Anemia Status: Acute (2) Coagulopathy Status: Acute (3) Coumadin toxicity Status: Acute (4) Elevated INR (international normalized ratio) due to prior anticoagulant medication ingestion Status: Acute (5) ESRD on dialysis Status: Acute (6) GI bleed Status: Acute Problems: Comment Review of Relevant I have reviewed the following items christi (where applicable) has been applied. Labs Laboratory Tests Test 09/09/16 18:25 09/10/16 00:10 09/10/16 08:50 White Blood Count 11.1x10^3/uL (4.0-11.0) 9.5x10^3/uL (4.0-11.0) Red Blood Count 2.18x10^6/uL (3.50-5.40) 2.61x10^6/uL (3.50-5.40) Hemoglobin 5.6g/dL (12.0-15.5) 7.1g/dL (12.0-15.5) Hematocrit 18.5% (36.0-47.0) 21.5% (36.0-47.0) Mean Corpuscular Volume 85fL (79-100) 82fL (79-100) Mean Corpuscular Hemoglobin 26pg (25-35) 27pg (25-35) Mean Corpuscular Hemoglobin Concent 30g/dL (31-37) 33g/dL (31-37) Red Cell Distribution Width 17.5% (11.5-14.5) 16.1% (11.5-14.5) Platelet Count 243x10^3/uL (140-400) 218x10^3/uL (140-400) Neutrophils (%) (Auto) 58% (31-73) 75% (31-73) Lymphocytes (%) (Auto) 32% (24-48) 18% (24-48) Monocytes (%) (Auto) 8% (0-9) 5% (0-9) Eosinophils (%) (Auto) 2% (0-3) 2% (0-3) Basophils (%) (Auto) 1% (0-3) 0% (0-3) Neutrophils # (Auto) 6.4x10^3uL (1.8-7.7) 7.1x10^3uL (1.8-7.7) Lymphocytes # (Auto) 3.6x10^3/uL (1.0-4.8) 1.7x10^3/uL (1.0-4.8) Monocytes # (Auto) 0.8x10^3/uL (0.0-1.1) 0.4x10^3/uL (0.0-1.1) Eosinophils # (Auto) 0.2x10^3/uL (0.0-0.7) 0.2x10^3/uL (0.0-0.7) Basophils # (Auto) 0.1x10^3/uL (0.0-0.2) 0.0x10^3/uL (0.0-0.2) Prothrombin Time 50.4SEC (11.7-14.0) Prothromb Time International Ratio 6.0 (0.8-1.1) Sodium Level 140mmol/L (136-145) Potassium Level 4.3mmol/L (3.5-5.1) Chloride Level 101mmol/L (98-107) Carbon Dioxide Level 32mmol/L (21-32) Anion Gap 7 (6-14) Blood Urea Nitrogen 33mg/dL (7-20) Creatinine 4.7mg/dL (0.6-1.0) Estimated GFR (Cockcroft-Gault) 11.5 BUN/Creatinine Ratio 7 (6-20) Glucose Level 116mg/dL (70-99) Calcium Level 8.5mg/dL (8.5-10.1) Total Bilirubin 0.4mg/dL (0.2-1.0) Aspartate Amino Transf (AST/SGOT) 35U/L (15-37) Alanine Aminotransferase (ALT/SGPT) 10U/L (14-59) Alkaline Phosphatase 97U/L (46-116) Total Protein 6.8g/dL (6.4-8.2) Albumin 1.6g/dL (3.4-5.0) Albumin/Globulin Ratio 0.3 (1.0-1.7) Stool Occult Blood Positive (NEG) Laboratory Tests Test 09/09/16 18:25 09/10/16 00:10 09/10/16 08:50 White Blood Count 11.1x10^3/uL (4.0-11.0) 9.5x10^3/uL (4.0-11.0) Red Blood Count 2.18x10^6/uL (3.50-5.40) 2.61x10^6/uL (3.50-5.40) Hemoglobin 5.6g/dL (12.0-15.5) 7.1g/dL (12.0-15.5) Hematocrit 18.5% (36.0-47.0) 21.5% (36.0-47.0) Mean Corpuscular Volume 85fL (79-100) 82fL (79-100) Mean Corpuscular Hemoglobin 26pg (25-35) 27pg (25-35) Mean Corpuscular Hemoglobin Concent 30g/dL (31-37) 33g/dL (31-37) Red Cell Distribution Width 17.5% (11.5-14.5) 16.1% (11.5-14.5) Platelet Count 243x10^3/uL (140-400) 218x10^3/uL (140-400) Neutrophils (%) (Auto) 58% (31-73) 75% (31-73) Lymphocytes (%) (Auto) 32% (24-48) 18% (24-48) Monocytes (%) (Auto) 8% (0-9) 5% (0-9) Eosinophils (%) (Auto) 2% (0-3) 2% (0-3) Basophils (%) (Auto) 1% (0-3) 0% (0-3) Neutrophils # (Auto) 6.4x10^3uL (1.8-7.7) 7.1x10^3uL (1.8-7.7) Lymphocytes # (Auto) 3.6x10^3/uL (1.0-4.8) 1.7x10^3/uL (1.0-4.8) Monocytes # (Auto) 0.8x10^3/uL (0.0-1.1) 0.4x10^3/uL (0.0-1.1) Eosinophils # (Auto) 0.2x10^3/uL (0.0-0.7) 0.2x10^3/uL (0.0-0.7) Basophils # (Auto) 0.1x10^3/uL (0.0-0.2) 0.0x10^3/uL (0.0-0.2) Prothrombin Time 50.4SEC (11.7-14.0) Prothromb Time International Ratio 6.0 (0.8-1.1) Sodium Level 140mmol/L (136-145) Potassium Level 4.3mmol/L (3.5-5.1) Chloride Level 101mmol/L (98-107) Carbon Dioxide Level 32mmol/L (21-32) Anion Gap 7 (6-14) Blood Urea Nitrogen 33mg/dL (7-20) Creatinine 4.7mg/dL (0.6-1.0) Estimated GFR (Cockcroft-Gault) 11.5 BUN/Creatinine Ratio 7 (6-20) Glucose Level 116mg/dL (70-99) Calcium Level 8.5mg/dL (8.5-10.1) Total Bilirubin 0.4mg/dL (0.2-1.0) Aspartate Amino Transf (AST/SGOT) 35U/L (15-37) Alanine Aminotransferase (ALT/SGPT) 10U/L (14-59) Alkaline Phosphatase 97U/L (46-116) Total Protein 6.8g/dL (6.4-8.2) Albumin 1.6g/dL (3.4-5.0) Albumin/Globulin Ratio 0.3 (1.0-1.7) Stool Occult Blood Positive (NEG) Medications Current Medications Oxycodone/ Acetaminophen (Percocet 5/325) 1 tab 1X ONCE PO ; Start 09/09/16 at 19:00; Stop 09/09/16 at 19:01; Status DC Hydromorphone HCl 1 mg 1 mg 1X ONCE IV Last administered on 09/09/16 19:21; Start 09/09/16 at 19:15; Stop 09/09/16 at 19:16; Status DC Pantoprazole Sodium/Sodium Chloride (Protonix Iv/Iv Sodium Chloride 0.9% 100ml) 100 ml @ 10 mls/hr 1X ONCE IV Last administered on 09/09/16 19:51; Start at 19:30; Stop 09/10/16 at 05:29; Status DC Ondansetron HCl 4 mg 4 mg PRN Q8HRS PRN IV NAUSEA/VOMITING Last administered on 09/09/16 19:51; Start 09/09/16 at 19:30; Stop 09/10/16 at 19:29 Sodium Chloride (Iv Sodium Chloride 0.9% 1000ml Bag) 1,000 ml @ 100 mls/hr Q10H IV Last administered on 09/09/16 19:51; Start 09/09/16 at 19:30; Stop at 06:00; Status DC Acetaminophen (Tylenol) 650 mg PRN Q4HRS PRN PO FEVER Last administered on 09/09 19:52; Start 09/09/16 at 19:30; Stop 09/10/16 at 19:29 Multi-Ingredient Mouthwash/Gargle 15 ml 15 ml 1X ONCE SWSW Last administered on 09/09/16 23:41; Start 09/09/16 at 23:30; Stop 09/09/16 at 23:31; Status DC Phytonadione/ Sodium Chloride (Vitamin K/Iv Sodium Chloride 0.9% 50ml) 51 ml @ 102 mls/hr 1X ONCE IV Last administered on 09/10/16 02:07; Start 09/10/16 at 00:00; Stop 09/10/16 at 00:29; Status DC Acetaminophen (Tylenol) 325 mg PRN Q4HRS PO ; Start 09/09/16 at 23:30; Stop at 23:30; Status DC Allopurinol (Zyloprim) 100 mg DAILY PO ; Start 09/10/16 at 09:00 Bisacodyl (Dulcolax Supp) 10 mg PRN DAILY PRN RC CONSTIPATION; Start 09/09/16 at 23:30 Cyclobenzaprine HCl (Flexeril) 10 mg PRN TID PRN PO back pain; Start 09/09/16 at 23:30 Gabapentin (Neurontin) 300 mg DAILY PO ; Start 09/10/16 at 09:00 Ipratropium [place] (Atrovent) 0.2 mg QID NEB ; Start 09/10/16 at 09:00; Status UNV Lidocaine (Lidoderm) 1 patch DAILY TP ; Start 09/10/16 at 09:00 Nortriptyline HCl (Pamelor) 25 mg QHS PO ; Start 09/10/16 at 21:00 Oxycodone HCl (Oxycontin) 10 mg BID PO ; Start 09/10/16 at 09:00 Oxycodone/ Acetaminophen (Percocet 10/325) 1 tab PRN Q4HRS PRN PO SEVERE PAIN Last administered on 09/10/16 00:34; Start 09/09/16 at 23:30 Non-Formulary Medication 2 puff Q4HRS INH FOR ASTHMA; Start 09/10/16 at 00:00; Status UNV Carvedilol (Coreg) 25 mg BIDWMEALS PO ; Start 09/10/16 at 08:00 Non-Formulary Medication 1 puff BID IH ; Start 09/10/16 at 09:00; Status UNV Ondansetron HCl (Zofran Odt) 8 mg Q8HRS PO ; Start 09/10/16 at 06:00 Sertraline HCl (Zoloft) 100 mg DAILY PO ; Start 09/10/16 at 09:00 Labetalol HCl (Normodyne) 20 mg PRN Q2HR PRN IVP HYPERTENSION, SEE COMMENTS; Start 09/09/16 at 23:30 Albuterol/ Ipratropium (Duoneb) 3 ml RTQID NEB Last administered on 09/10/16 07:59; Start 09/10/16 at 08:00 Budesonide (Pulmicort) 0.5 mg RTBID NEB Last administered on 09/10/16 07:59; Start 09/10/16 at 08:00 Albuterol Sulfate 2.5 mg 2.5 mg PRN Q4HRS PRN NEB SHORTNESS OF BREATH; Start at 23:30 Pantoprazole Sodium/Sodium Chloride (Protonix Iv/Iv Sodium Chloride 0.9% 100ml) 100 ml @ 10 mls/hr Q10H IV ; Start 09/10/16 at 10:00 Active Scripts Active Reported [Mylanta] Tylenol (Acetaminophen) 325 Mg Tablet 1 Tab PO PRN Q4HRS Fleet Enema (Na Phos,M-B/Na Phos,Di-Ba) 133 Ml Enema 1 Each RC ONCE Dulcolax (Bisacodyl) 10 Mg Supp.rect 10 Mg RC PRN DAILY PRN Zofran Odt (Ondansetron) 8 Mg Tab.rapdis 1 Tab PO Q8HRS Nitrostat (Nitroglycerin) 0.4 Mg Tab.subl 1 Tab SL UD Cyclobenzaprine Hcl 10 Mg Tablet 1 Tab PO TID Zepatier 50-100 mg Tablet (Elbasvir/Grazoprevir) 1 Each Tablet 1 Each PO [PhosLo] Coreg (Carvedilol) 25 Mg Tablet 1 Tab PO BID Aspirin 81 Mg Tab.chew 1 Tab PO DAILY Allopurinol 100 Mg Tablet 1 Tab PO DAILY Ventolin Hfa Inhaler (Albuterol Sulfate) 18 Gm Hfa.aer.ad 2 Puff INH Q4HRS Nephplex Rx Tablet (Vit B Cmplx No3/Fa/C/Biot/Zinc) 1 Each Tablet 1 Each PO Senokot (Sennosides) 8.6 Mg Tablet 1 Tab PO BID Oxycontin (Oxycodone HCl) 10 Mg Tab.er.12h 10 Mg PO BID Glycolax (Polyethylene Glycol 3350) 119 Gm Powder 17 Gm PO UD Percocet 10-325 Mg Tablet (Oxycodone/Acetaminophen) 1 Each Tablet 1 Tab PO Q4- 6HRS Vitamin D3 (Cholecalciferol (Vitamin D3)) 1,000 Unit Tablet 1 Tab PO DAILY Advair 250-50 Diskus (Fluticasone/Salmeterol) 1 Each Disk.w.dev 1 Puff IH BID Ipratropium [place] 0.2 Mg/1 Ml Solution 1 Vial NEB QID Lidoderm (Lidocaine) 700 Mg Adh..patch 1 Patch TP DAILY Nortriptyline Hcl 25 Mg Capsule 1 Cap PO QHS Ciprofloxacin Hcl 250 Mg Tablet 1 Tab PO BID Warfarin Sodium 2 Mg Tablet 1.5 Mg PO DAILY Gabapentin 300 Mg Capsule 300 Mg PO TID Zoloft (Sertraline Hcl) 100 Mg Tablet 1 Tab PO DAILY Vitals/I & O Vital Sign - Last 24 Hours 09/09/16 09/09/16 09/09/16 09/09/16 18:10 18:30 19:00 19:21 Temp 98.5 98.5 Pulse 87 84 84 Resp 22 17 41 B/P 106/64 106/64 111/62 Pulse Ox 93 99 95 O2 Delivery Room Air Room Air Room Air 09/09/16 09/09/16 09/09/16 09/09/16 19:30 20:00 20:45 21:00 Temp 98.0 98.0 Pulse 84 86 91 Resp B/P 90/54 95/57 135/77 Pulse Ox 94 89 O2 Delivery Room Air 09/09/16 09/09/16 09/09/16 09/09/16 21:00 21:15 21:30 21:45 Pulse 84 86 86 84 Resp B/P 112/82 105/74 119/73 113/64 Pulse Ox 99 99 97 99 O2 Delivery Room Air Room Air Room Air Room Air 09/09/16 09/09/16 09/09/16 09/09/16 22:00 22:31 23:00 23:13 Temp 98.0 98.0 Pulse 86 87 88 87 Resp 13 B/P 147/69 113/70 153/81 153/81 Pulse Ox 96 100 O2 Delivery Room Air Room Air 09/10/16 09/10/16 09/10/16 09/10/16 00:00 00:00 00:30 00:34 Temp 98.7 98.7 98.7 98.7 Pulse 88 92 Resp 12 B/P 119/75 128/73 Pulse Ox 99 97 O2 Delivery Room Air Room Air Room Air 09/10/16 09/10/16 09/10/16 09/10/16 00:53 01:00 01:57 02:00 Temp 98.1 98.1 Pulse 89 90 92 92 Resp B/P 110/63 103/63 103/63 114/67 Pulse Ox 94 92 O2 Delivery Room Air Room Air 09/10/16 09/10/16 09/10/16 09/10/16 02:09 03:00 03:11 04:00 Pulse 91 90 Resp B/P 113/68 113/86 Pulse Ox 95 91 O2 Delivery Room Air Room Air Room Air 09/10/16 09/10/16 09/10/16 09/10/16 04:00 04:17 04:44 05:00 Temp 97.7 97.7 97.7 97.7 97.7 97.7 Pulse 91 94 95 88 Resp 25 14 B/P 118/71 118/71 137/66 137/66 Pulse Ox 92 92 O2 Delivery Room Air Room Air 09/10/16 09/10/16 09/10/16 09/10/16 06:00 07:00 08:00 08:00 Temp 97.9 97.9 Pulse 88 86 85 Resp 13 B/P 119/74 118/75 137/82 Pulse Ox 98 96 98 O2 Delivery Room Air Room Air Room Air Room Air 09/10/16 09/10/16 08:01 09:00 Pulse 86 Resp 14 B/P 134/80 Pulse Ox 100 100 O2 Delivery Room Air Room Air Intake and Output 09/09/16 09/09/16 09/10/16 15:00 23:00 07:00 Intake Total 1480 ml Balance 1480 ml KURT LUND MD Sep 10, 2016 09:51
[2016-09-10] MEDS ORDERED: MAGNESIUM SULFATE 2GM 50 ML IV PRN (10:00)
[2016-09-10] MEDS: PANTOPRAZOLE SODIUM IV 80 MG in IV NORMAL SALINE 100ML 100 ML IV SCH (10:00)
[2016-09-10 16:18] LABS: RED BLOOD COUNT 2.41 x10^6/uL (3.50-5.40); RED CELL DISTRIBUTION WIDTH 16.3 % (11.5-14.5); WHITE BLOOD COUNT 10.9 x10^3/uL (4.0-11.0)
[2016-09-10 16:25] LABS: HEMATOCRIT 19.7 % (36.0-47.0); HEMOGLOBIN 6.5 g/dL (12.0-15.5)
[2016-09-10] MEDS: NORTRIPTYLINE 25 MG CAPSULE PO SCH (21:08)
[2016-09-10] MEDS: CYCLOBENZAPRINE 10 MG TABLET. PO PRN (21:09)
[2016-09-11] VITALS (9 sets, daily range): BP systolic 90–158; BP diastolic 67–75
[2016-09-11] MEDS: PANTOPRAZOLE SODIUM IV 80 MG in IV NORMAL SALINE 100ML 100 ML IV SCH ×3 (00:57→18:11)
--- NOTE | 2016-09-11 05:37 | CONS ---
DATE OF CONSULTATION: PRIMARY PHYSICIAN: Dr. Layton. REASON FOR CONSULTATION: ESRD dialysis. HISTORY OF PRESENT ILLNESS: The patient is a 61-year-old -[place] female who dialyzes under care of [facility]. She apparently resides [facility] the healthcare [facility]. Of late, she was noted to have a hemoglobin of 5.4 and was sent to the ER for further evaluation. She was felt to have dark tarry stools at the facility. She claims she came here for abdominal pain. The patient is not the best historian. She was noted to have an INR of 6. She was given 2 units of FFP and 2 packed red blood cells. GI has evaluated the patient. We were asked to consult for ESRD status. She is not aware of whether she ran on dialysis yesterday or not. She thinks she did not go due to abdominal pain, this will attempt to be clarified with the outpatient setting, she usually dialyzes Friday, Friday and Friday. Recheck hemoglobin, currently is at 7.1. Potassium yesterday was 4.3. For rest of the details, please see electronic records. HERMELINDA MCINTYRE MD DR: MARYSOL/leah JOB#: [id number] / [id number]
[2016-09-11] MEDS: BUDESONIDE 0.5 MG/2 ML NEBU NEB SCH ×2 (07:26→19:35)
[2016-09-11] MEDS: IPRATRPIUM/ALBUTEROL 0.5/2.5MG 3 ML NEBU. NEB SCH ×4 (07:26→19:35)
[2016-09-11] MEDS ORDERED: IV NORMAL SALINE 1000ML BAG 1,000 ML IV PRN ×2 (08:50)
[2016-09-11] MEDS ORDERED: LABETALOL 20 MG/4 ML DISP.SYRIN. IVP PRN (09:00)
[2016-09-11] MEDS ORDERED: DIPHENHYDRAMINE 50 MG/ML VIAL IV PRN ×2 (09:00)
[2016-09-11] MEDS ORDERED: 0.9 % SODIUM CHLORIDE 10 ML DISP.SYRIN. IV PRN ×2 (09:00)
[2016-09-11] MEDS ORDERED: DIALYSIS PATIENT. MC PRN ×2 (09:00)
[2016-09-11 09:32] LABS: INR 1.6 (0.8-1.1); PROTHROMBIN TIME PATIENT 17.8 SEC (11.7-14.0)
[2016-09-11 09:59] LABS: ALBUMIN 1.6 g/dL (3.4-5.0); CALCIUM 8.1 mg/dL (8.5-10.1); CREATININE 5.8 mg/dL (0.6-1.0); PHOSPHORUS 3.6 mg/dL (2.6-4.7); POTASSIUM 4.9 mmol/L (3.5-5.1)
--- NOTE | 2016-09-11 10:32 | PDOC ---
Dialysis Progress Note Dialysis Note Dialysis Note Seen on Hemodialysis, tolerating treatment Okay Vitals on Hemodialysis: 110/67 91 afeb General Appearance: Awake: Alert Oriented x 1? Neck: No JVD or JVP Chest: CTA Donny Heart: S1 S2 Abdomen - Soft NTND Extremities - No Edema ESRD: Dialysis as below F 180 NR 3.5 Hrs 2 K 2.5 Ca 140 Na 35 HC03 Qb 350 + Qd 500+ Heparin 0 Units Uf 1.5 Kgs or to dry weight as tolerated Transfuse 2 Units PRCBC's on HD if available in time May give 25-50 gms of 25% Albumin if needed to maintain Hemodynamic stability Treatment plan reviewed and discussed with heel attacher wood Vitals Vital Signs Vital Signs Date Time Temp Pulse Resp B/P Pulse Ox O2 Delivery O2 Flow Rate FiO2 09/11/16 07:27 94 Room Air 09/11/16 07:00 99.2 90 18 143/68 99.2 Labs Last Labs Laboratory Tests Test 09/09/16 18:25 09/10/16 00:10 09/10/16 02:25 09/10/16 08:50 White Blood Count 11.1x10^3/uL (4.0-11.0) 9.5x10^3/uL (4.0-11.0) Red Blood Count 2.18x10^6/uL (3.50-5.40) 2.61x10^6/uL (3.50-5.40) Hemoglobin 5.6g/dL (12.0-15.5) 7.1g/dL (12.0-15.5) Hematocrit 18.5% (36.0-47.0) 21.5% (36.0-47.0) Mean Corpuscular Volume 85fL (79-100) 82fL (79-100) Mean Corpuscular Hemoglobin 26pg (25-35) 27pg (25-35) Mean Corpuscular Hemoglobin Concent 30g/dL (31-37) 33g/dL (31-37) Red Cell Distribution Width 17.5% (11.5-14.5) 16.1% (11.5-14.5) Platelet Count 243x10^3/uL (140-400) 218x10^3/uL (140-400) Neutrophils (%) (Auto) 58% (31-73) 75% (31-73) Lymphocytes (%) (Auto) 32% (24-48) 18% (24-48) Monocytes (%) (Auto) 8% (0-9) 5% (0-9) Eosinophils (%) (Auto) 2% (0-3) 2% (0-3) Basophils (%) (Auto) 1% (0-3) 0% (0-3) Neutrophils # (Auto) 6.4x10^3uL (1.8-7.7) 7.1x10^3uL (1.8-7.7) Lymphocytes # (Auto) 3.6x10^3/uL (1.0-4.8) 1.7x10^3/uL (1.0-4.8) Monocytes # (Auto) 0.8x10^3/uL (0.0-1.1) 0.4x10^3/uL (0.0-1.1) Eosinophils # (Auto) 0.2x10^3/uL (0.0-0.7) 0.2x10^3/uL (0.0-0.7) Basophils # (Auto) 0.1x10^3/uL (0.0-0.2) 0.0x10^3/uL (0.0-0.2) Prothrombin Time 50.4SEC (11.7-14.0) Prothromb Time International Ratio 6.0 (0.8-1.1) Sodium Level 140mmol/L (136-145) Potassium Level 4.3mmol/L (3.5-5.1) Chloride Level 101mmol/L (98-107) Carbon Dioxide Level 32mmol/L (21-32) Anion Gap 7 (6-14) Blood Urea Nitrogen 33mg/dL (7-20) Creatinine 4.7mg/dL (0.6-1.0) Estimated GFR (Cockcroft-Gault) 11.5 BUN/Creatinine Ratio 7 (6-20) Glucose Level 116mg/dL (70-99) Calcium Level 8.5mg/dL (8.5-10.1) Total Bilirubin 0.4mg/dL (0.2-1.0) Aspartate Amino Transf (AST/SGOT) 35U/L (15-37) Alanine Aminotransferase (ALT/SGPT) 10U/L (14-59) Alkaline Phosphatase 97U/L (46-116) Total Protein 6.8g/dL (6.4-8.2) Albumin 1.6g/dL (3.4-5.0) Albumin/Globulin Ratio 0.3 (1.0-1.7) Stool Occult Blood Positive (NEG) Nasal Screen MRSA (PCR) Negative (Negative) Test 09/10/16 09:00 09/10/16 15:45 09/10/16 16:39 09/10/16 21:04 Prothrombin Time 20.4SEC (11.7-14.0) Prothromb Time International Ratio 1.9 (0.8-1.1) White Blood Count 10.9x10^3/uL (4.0-11.0) Red Blood Count 2.41x10^6/uL (3.50-5.40) Hemoglobin 6.5g/dL (12.0-15.5) Hematocrit 19.7% (36.0-47.0) Mean Corpuscular Volume 82fL (79-100) Mean Corpuscular Hemoglobin 27pg (25-35) Mean Corpuscular Hemoglobin Concent 33g/dL (31-37) Red Cell Distribution Width 16.3% (11.5-14.5) Platelet Count 199x10^3/uL (140-400) Glucose (Fingerstick) 71mg/dL (70-99) 75mg/dL (70-99) Test 09/11/16 08:19 09/11/16 08:30 Glucose (Fingerstick) 73mg/dL (70-99) Hemoglobin 5.8g/dL (12.0-15.5) Prothrombin Time 17.8SEC (11.7-14.0) Prothromb Time International Ratio 1.6 (0.8-1.1) Sodium Level 141mmol/L (136-145) Potassium Level 4.9mmol/L (3.5-5.1) Chloride Level 104mmol/L (98-107) Carbon Dioxide Level 29mmol/L (21-32) Anion Gap 8 (6-14) Blood Urea Nitrogen 52mg/dL (7-20) Creatinine 5.8mg/dL (0.6-1.0) Estimated GFR (Cockcroft-Gault) 9.0 Glucose Level 76mg/dL (70-99) Calcium Level 8.1mg/dL (8.5-10.1) Phosphorus Level 3.6mg/dL (2.6-4.7) Magnesium Level 2.2mg/dL (1.8-2.4) Albumin 1.6g/dL (3.4-5.0) Laboratory Tests Test 09/10/16 15:45 09/10/16 16:39 09/10/16 21:04 09/11/16 08:19 White Blood Count 10.9x10^3/uL (4.0-11.0) Red Blood Count 2.41x10^6/uL (3.50-5.40) Hemoglobin 6.5g/dL (12.0-15.5) Hematocrit 19.7% (36.0-47.0) Mean Corpuscular Volume 82fL (79-100) Mean Corpuscular Hemoglobin 27pg (25-35) Mean Corpuscular Hemoglobin Concent 33g/dL (31-37) Red Cell Distribution Width 16.3% (11.5-14.5) Platelet Count 199x10^3/uL (140-400) Glucose (Fingerstick) 71mg/dL (70-99) 75mg/dL (70-99) 73mg/dL (70-99) Test 09/11/16 08:30 Hemoglobin 5.8g/dL (12.0-15.5) Prothrombin Time 17.8SEC (11.7-14.0) Prothromb Time International Ratio 1.6 (0.8-1.1) Sodium Level 141mmol/L (136-145) Potassium Level 4.9mmol/L (3.5-5.1) Chloride Level 104mmol/L (98-107) Carbon Dioxide Level 29mmol/L (21-32) Anion Gap 8 (6-14) Blood Urea Nitrogen 52mg/dL (7-20) Creatinine 5.8mg/dL (0.6-1.0) Estimated GFR (Cockcroft-Gault) 9.0 Glucose Level 76mg/dL (70-99) Calcium Level 8.1mg/dL (8.5-10.1) Phosphorus Level 3.6mg/dL (2.6-4.7) Magnesium Level 2.2mg/dL (1.8-2.4) Albumin 1.6g/dL (3.4-5.0) Assessment Assessment Problems Medical Problems: (1) Anemia Status: Acute (2) Coagulopathy Status: Acute (3) Coumadin toxicity Status: Acute (4) Elevated INR (international normalized ratio) due to prior anticoagulant medication ingestion Status: Acute (5) ESRD on dialysis Status: Acute (6) GI bleed Status: Acute Problems: Plan Plan of Care Problems Medical Problems: (1) Anemia Status: Acute (2) Coagulopathy Status: Acute (3) Coumadin toxicity Status: Acute (4) Elevated INR (international normalized ratio) due to prior anticoagulant medication ingestion Status: Acute (5) ESRD on dialysis Status: Acute (6) GI bleed Status: Acute HERMELINDA MCINTYRE MD Sep 11, 2016 10:31
--- NOTE | 2016-09-11 11:57 | PDOC ---
PROGRESS NOTES Chief Complaint Chief Complaint Melena Acute blood loss anemia, GI bleed, ESRD, on HD MWF Coagulopathy, on Coumadin for afib, HTN Asthma Obesity, back pain, History of Present Illness History of Present Illness Seen in HD Pt very poor historian [facility] resident No reports of significant melena today But hgb dropped to 5.8 today Seemingly no abd pain PE abd: benign PLAN: Transfuse 1 unit pRBC today HH deon and today 2 hrs post BT PT/OT Follow GI recs, cuurently NPO but no orders for EGD Liquid diet today if no plans EGD dw RN and pt Vitals Vitals Vital Signs Date Time Temp Pulse Resp B/P Pulse Ox O2 Delivery O2 Flow Rate FiO2 09/11/16 11:45 Room Air 09/11/16 07:27 94 09/11/16 07:00 99.2 90 18 143/68 99.2 Physical Exam General: Alert, Oriented X3, Cooperative, No acute distress, Other Heart: Normal S1, Normal S2 Lungs: Clear Abdomen: Normal bowel sounds, Soft Extremities: No clubbing, No cyanosis Skin: No rashes Labs LABS Laboratory Tests Test 09/10/16 15:45 09/10/16 16:39 09/10/16 21:04 09/11/16 08:19 White Blood Count 10.9x10^3/uL (4.0-11.0) Red Blood Count 2.41x10^6/uL (3.50-5.40) Hemoglobin 6.5g/dL (12.0-15.5) Hematocrit 19.7% (36.0-47.0) Mean Corpuscular Volume 82fL (79-100) Mean Corpuscular Hemoglobin 27pg (25-35) Mean Corpuscular Hemoglobin Concent 33g/dL (31-37) Red Cell Distribution Width 16.3% (11.5-14.5) Platelet Count 199x10^3/uL (140-400) Glucose (Fingerstick) 71mg/dL (70-99) 75mg/dL (70-99) 73mg/dL (70-99) Test 09/11/16 08:30 Hemoglobin 5.8g/dL (12.0-15.5) Prothrombin Time 17.8SEC (11.7-14.0) Prothromb Time International Ratio 1.6 (0.8-1.1) Sodium Level 141mmol/L (136-145) Potassium Level 4.9mmol/L (3.5-5.1) Chloride Level 104mmol/L (98-107) Carbon Dioxide Level 29mmol/L (21-32) Anion Gap 8 (6-14) Blood Urea Nitrogen 52mg/dL (7-20) Creatinine 5.8mg/dL (0.6-1.0) Estimated GFR (Cockcroft-Gault) 9.0 Glucose Level 76mg/dL (70-99) Calcium Level 8.1mg/dL (8.5-10.1) Phosphorus Level 3.6mg/dL (2.6-4.7) Magnesium Level 2.2mg/dL (1.8-2.4) Albumin 1.6g/dL (3.4-5.0) Review of Systems Review of Systems VERY poor historian Assessment and Plan Assessmemt and Plan Problems Medical Problems: (1) Anemia Status: Acute (2) Coagulopathy Status: Acute (3) Coumadin toxicity Status: Acute (4) Elevated INR (international normalized ratio) due to prior anticoagulant medication ingestion Status: Acute (5) ESRD on dialysis Status: Acute (6) GI bleed Status: Acute Problems: Comment Review of Relevant I have reviewed the following items christi (where applicable) has been applied. Labs Laboratory Tests Test 09/09/16 18:25 09/10/16 00:10 09/10/16 02:25 09/10/16 08:50 White Blood Count 11.1x10^3/uL (4.0-11.0) 9.5x10^3/uL (4.0-11.0) Red Blood Count 2.18x10^6/uL (3.50-5.40) 2.61x10^6/uL (3.50-5.40) Hemoglobin 5.6g/dL (12.0-15.5) 7.1g/dL (12.0-15.5) Hematocrit 18.5% (36.0-47.0) 21.5% (36.0-47.0) Mean Corpuscular Volume 85fL (79-100) 82fL (79-100) Mean Corpuscular Hemoglobin 26pg (25-35) 27pg (25-35) Mean Corpuscular Hemoglobin Concent 30g/dL (31-37) 33g/dL (31-37) Red Cell Distribution Width 17.5% (11.5-14.5) 16.1% (11.5-14.5) Platelet Count 243x10^3/uL (140-400) 218x10^3/uL (140-400) Neutrophils (%) (Auto) 58% (31-73) 75% (31-73) Lymphocytes (%) (Auto) 32% (24-48) 18% (24-48) Monocytes (%) (Auto) 8% (0-9) 5% (0-9) Eosinophils (%) (Auto) 2% (0-3) 2% (0-3) Basophils (%) (Auto) 1% (0-3) 0% (0-3) Neutrophils # (Auto) 6.4x10^3uL (1.8-7.7) 7.1x10^3uL (1.8-7.7) Lymphocytes # (Auto) 3.6x10^3/uL (1.0-4.8) 1.7x10^3/uL (1.0-4.8) Monocytes # (Auto) 0.8x10^3/uL (0.0-1.1) 0.4x10^3/uL (0.0-1.1) Eosinophils # (Auto) 0.2x10^3/uL (0.0-0.7) 0.2x10^3/uL (0.0-0.7) Basophils # (Auto) 0.1x10^3/uL (0.0-0.2) 0.0x10^3/uL (0.0-0.2) Prothrombin Time 50.4SEC (11.7-14.0) Prothromb Time International Ratio 6.0 (0.8-1.1) Sodium Level 140mmol/L (136-145) Potassium Level 4.3mmol/L (3.5-5.1) Chloride Level 101mmol/L (98-107) Carbon Dioxide Level 32mmol/L (21-32) Anion Gap 7 (6-14) Blood Urea Nitrogen 33mg/dL (7-20) Creatinine 4.7mg/dL (0.6-1.0) Estimated GFR (Cockcroft-Gault) 11.5 BUN/Creatinine Ratio 7 (6-20) Glucose Level 116mg/dL (70-99) Calcium Level 8.5mg/dL (8.5-10.1) Total Bilirubin 0.4mg/dL (0.2-1.0) Aspartate Amino Transf (AST/SGOT) 35U/L (15-37) Alanine Aminotransferase (ALT/SGPT) 10U/L (14-59) Alkaline Phosphatase 97U/L (46-116) Total Protein 6.8g/dL (6.4-8.2) Albumin 1.6g/dL (3.4-5.0) Albumin/Globulin Ratio 0.3 (1.0-1.7) Stool Occult Blood Positive (NEG) Nasal Screen MRSA (PCR) Negative (Negative) Test 09/10/16 09:00 09/10/16 15:45 09/10/16 16:39 09/10/16 21:04 Prothrombin Time 20.4SEC (11.7-14.0) Prothromb Time International Ratio 1.9 (0.8-1.1) White Blood Count 10.9x10^3/uL (4.0-11.0) Red Blood Count 2.41x10^6/uL (3.50-5.40) Hemoglobin 6.5g/dL (12.0-15.5) Hematocrit 19.7% (36.0-47.0) Mean Corpuscular Volume 82fL (79-100) Mean Corpuscular Hemoglobin 27pg (25-35) Mean Corpuscular Hemoglobin Concent 33g/dL (31-37) Red Cell Distribution Width 16.3% (11.5-14.5) Platelet Count 199x10^3/uL (140-400) Glucose (Fingerstick) 71mg/dL (70-99) 75mg/dL (70-99) Test 09/11/16 08:19 09/11/16 08:30 Glucose (Fingerstick) 73mg/dL (70-99) Hemoglobin 5.8g/dL (12.0-15.5) Prothrombin Time 17.8SEC (11.7-14.0) Prothromb Time International Ratio 1.6 (0.8-1.1) Sodium Level 141mmol/L (136-145) Potassium Level 4.9mmol/L (3.5-5.1) Chloride Level 104mmol/L (98-107) Carbon Dioxide Level 29mmol/L (21-32) Anion Gap 8 (6-14) Blood Urea Nitrogen 52mg/dL (7-20) Creatinine 5.8mg/dL (0.6-1.0) Estimated GFR (Cockcroft-Gault) 9.0 Glucose Level 76mg/dL (70-99) Calcium Level 8.1mg/dL (8.5-10.1) Phosphorus Level 3.6mg/dL (2.6-4.7) Magnesium Level 2.2mg/dL (1.8-2.4) Albumin 1.6g/dL (3.4-5.0) Laboratory Tests Test 09/10/16 15:45 09/10/16 16:39 09/10/16 21:04 09/11/16 08:19 White Blood Count 10.9x10^3/uL (4.0-11.0) Red Blood Count 2.41x10^6/uL (3.50-5.40) Hemoglobin 6.5g/dL (12.0-15.5) Hematocrit 19.7% (36.0-47.0) Mean Corpuscular Volume 82fL (79-100) Mean Corpuscular Hemoglobin 27pg (25-35) Mean Corpuscular Hemoglobin Concent 33g/dL (31-37) Red Cell Distribution Width 16.3% (11.5-14.5) Platelet Count 199x10^3/uL (140-400) Glucose (Fingerstick) 71mg/dL (70-99) 75mg/dL (70-99) 73mg/dL (70-99) Test 09/11/16 08:30 Hemoglobin 5.8g/dL (12.0-15.5) Prothrombin Time 17.8SEC (11.7-14.0) Prothromb Time International Ratio 1.6 (0.8-1.1) Sodium Level 141mmol/L (136-145) Potassium Level 4.9mmol/L (3.5-5.1) Chloride Level 104mmol/L (98-107) Carbon Dioxide Level 29mmol/L (21-32) Anion Gap 8 (6-14) Blood Urea Nitrogen 52mg/dL (7-20) Creatinine 5.8mg/dL (0.6-1.0) Estimated GFR (Cockcroft-Gault) 9.0 Glucose Level 76mg/dL (70-99) Calcium Level 8.1mg/dL (8.5-10.1) Phosphorus Level 3.6mg/dL (2.6-4.7) Magnesium Level 2.2mg/dL (1.8-2.4) Albumin 1.6g/dL (3.4-5.0) Medications Current Medications Oxycodone/ Acetaminophen (Percocet 5/325) 1 tab 1X ONCE PO ; Start 09/09/16 at 19:00; Stop 09/09/16 at 19:01; Status DC Hydromorphone HCl 1 mg 1 mg 1X ONCE IV Last administered on 09/09/16 19:21; Start 09/09/16 at 19:15; Stop 09/09/16 at 19:16; Status DC Pantoprazole Sodium/Sodium Chloride (Protonix Iv/Iv Sodium Chloride 0.9% 100ml) 100 ml @ 10 mls/hr 1X ONCE IV Last administered on 09/09/16 19:51; Start at 19:30; Stop 09/10/16 at 05:29; Status DC Ondansetron HCl 4 mg 4 mg PRN Q8HRS PRN IV NAUSEA/VOMITING Last administered on 09/09/16 19:51; Start 09/09/16 at 19:30; Stop 09/10/16 at 19:29; Status DC Sodium Chloride (Iv Sodium Chloride 0.9% 1000ml Bag) 1,000 ml @ 100 mls/hr Q10H IV Last administered on 09/09/16 19:51; Start 09/09/16 at 19:30; Stop at 06:00; Status DC Acetaminophen (Tylenol) 650 mg PRN Q4HRS PRN PO FEVER Last administered on 09/09 19:52; Start 09/09/16 at 19:30; Stop 09/10/16 at 19:29; Status DC Multi-Ingredient Mouthwash/Gargle 15 ml 15 ml 1X ONCE SWSW Last administered on 09/09/16 23:41; Start 09/09/16 at 23:30; Stop 09/09/16 at 23:31; Status DC Phytonadione/ Sodium Chloride (Vitamin K/Iv Sodium Chloride 0.9% 50ml) 51 ml @ 102 mls/hr 1X ONCE IV Last administered on 09/10/16 02:07; Start 09/10/16 at 00:00; Stop 09/10/16 at 00:29; Status DC Acetaminophen (Tylenol) 325 mg PRN Q4HRS PO ; Start 09/09/16 at 23:30; Stop at 23:30; Status DC Allopurinol (Zyloprim) 100 mg DAILY PO ; Start 09/10/16 at 09:00 Bisacodyl (Dulcolax Supp) 10 mg PRN DAILY PRN RC CONSTIPATION; Start 09/09/16 at 23:30 Cyclobenzaprine HCl (Flexeril) 10 mg PRN TID PRN PO back pain Last administered on 09/10/16 21:09; Start 09/09/16 at 23:30 Gabapentin (Neurontin) 300 mg DAILY PO ; Start 09/10/16 at 09:00 Ipratropium [place] (Atrovent) 0.2 mg QID NEB ; Start 09/10/16 at 09:00; Status UNV Lidocaine (Lidoderm) 1 patch DAILY TP Last administered on 09/10/16 09:00; Start 09/10/16 at 09:00 Nortriptyline HCl (Pamelor) 25 mg QHS PO Last administered on 09/10/16 21:08; Start 09/10/16 at 21:00 Oxycodone HCl (Oxycontin) 10 mg BID PO Last administered on 09/10/16 21:09; Start 09/10/16 at 09:00 Oxycodone/ Acetaminophen (Percocet 10/325) 1 tab PRN Q4HRS PRN PO SEVERE PAIN Last administered on 09/10/16 22:38; Start 09/09/16 at 23:30 Non-Formulary Medication 2 puff Q4HRS INH FOR ASTHMA; Start 09/10/16 at 00:00; Status UNV Carvedilol (Coreg) 25 mg BIDWMEALS PO Last administered on 09/10/16 17:39; Start 09/10/16 at 08:00 Non-Formulary Medication 1 puff BID IH ; Start 09/10/16 at 09:00; Status UNV Ondansetron HCl (Zofran Odt) 8 mg Q8HRS PO ; Start 09/10/16 at 06:00 Sertraline HCl (Zoloft) 100 mg DAILY PO ; Start 09/10/16 at 09:00 Labetalol HCl (Normodyne) 20 mg PRN Q2HR PRN IVP HYPERTENSION, SEE COMMENTS; Start 09/09/16 at 23:30 Albuterol/ Ipratropium (Duoneb) 3 ml RTQID NEB Last administered on 09/11/16 11:42; Start 09/10/16 at 08:00 Budesonide (Pulmicort) 0.5 mg RTBID NEB Last administered on 09/10/16 07:59; Start 09/10/16 at 08:00 Albuterol Sulfate 2.5 mg 2.5 mg PRN Q4HRS PRN NEB SHORTNESS OF BREATH; Start at 23:30 Pantoprazole Sodium 80 mg/ Sodium Chloride 100 ml @ 10 mls/hr Q10H IV Last administered on 09/11/16 00:57; Start 09/10/16 at 10:00; Stop 09/13/16 at 09:59 Magnesium Sulfate/ Dextrose 50 ml @ 25 mls/hr PRN DAILY PRN IV for Mag < 1.7 on am labs; Start 09/10/16 at 10:00 Sodium Chloride (Iv Sodium Chloride 0.9% 1000ml Bag) 1,000 ml @ 1,000 mls/hr Q1H PRN IV hypotension; Start 09/11/16 at 08:50; Stop 09/11/16 at 14:49 Diphenhydramine HCl (Benadryl) 25 mg 1X PRN PRN IV ITCHING; Start 09/11/16 at 09:00; Stop 09/12/16 at 08:59 Diphenhydramine HCl (Benadryl) 25 mg 1X PRN PRN IV ITCHING; Start 09/11/16 at 09:00; Stop 09/12/16 at 08:59 Sodium Chloride (Normal Saline Flush) 10 ml 1X PRN PRN IV AP catheter pack; Start 09/11/16 at 09:00; Stop 09/12/16 at 08:59 Sodium Chloride (Normal Saline Flush) 10 ml 1X PRN PRN IV 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; Start 09/11/16 at 09:00; Stop 09/12/16 at 08:59 Labetalol HCl 10 mg 10 mg PRN Q1HR PRN IVP SBP > 180; Start 09/11/16 at 09:00; Stop 09/12/16 at 08:59 Sodium Chloride (Iv Sodium Chloride 0.9% 1000ml Bag) 1,000 ml @ 400 mls/hr Q2H30M PRN IV PATENCY; Start 09/11/16 at 08:50; Stop 09/11/16 at 20:49 Info (PHARMACY MONITORING -- do not chart) 1 each PRN DAILY PRN MC SEE COMMENTS ; Start 09/11/16 at 09:00 Info (PHARMACY MONITORING -- do not chart) 1 each PRN DAILY PRN MC SEE COMMENTS ; Start 09/11/16 at 09:00; Status UNV Active Scripts Active Reported [Mylanta] Tylenol (Acetaminophen) 325 Mg Tablet 1 Tab PO PRN Q4HRS Fleet Enema (Na Phos,M-B/Na Phos,Di-Ba) 133 Ml Enema 1 Each RC ONCE Dulcolax (Bisacodyl) 10 Mg Supp.rect 10 Mg RC PRN DAILY PRN Zofran Odt (Ondansetron) 8 Mg Tab.rapdis 1 Tab PO Q8HRS Nitrostat (Nitroglycerin) 0.4 Mg Tab.subl 1 Tab SL UD Cyclobenzaprine Hcl 10 Mg Tablet 1 Tab PO TID Zepatier 50-100 mg Tablet (Elbasvir/Grazoprevir) 1 Each Tablet 1 Each PO [PhosLo] Coreg (Carvedilol) 25 Mg Tablet 1 Tab PO BID Aspirin 81 Mg Tab.chew 1 Tab PO DAILY Allopurinol 100 Mg Tablet 1 Tab PO DAILY Ventolin Hfa Inhaler (Albuterol Sulfate) 18 Gm Hfa.aer.ad 2 Puff INH Q4HRS Nephplex Rx Tablet (Vit B Cmplx No3/Fa/C/Biot/Zinc) 1 Each Tablet 1 Each PO Senokot (Sennosides) 8.6 Mg Tablet 1 Tab PO BID Oxycontin (Oxycodone HCl) 10 Mg Tab.er.12h 10 Mg PO BID Glycolax (Polyethylene Glycol 3350) 119 Gm Powder 17 Gm PO UD Percocet 10-325 Mg Tablet (Oxycodone/Acetaminophen) 1 Each Tablet 1 Tab PO Q4- 6HRS Vitamin D3 (Cholecalciferol (Vitamin D3)) 1,000 Unit Tablet 1 Tab PO DAILY Advair 250-50 Diskus (Fluticasone/Salmeterol) 1 Each Disk.w.dev 1 Puff IH BID Ipratropium [place] 0.2 Mg/1 Ml Solution 1 Vial NEB QID Lidoderm (Lidocaine) 700 Mg Adh..patch 1 Patch TP DAILY Nortriptyline Hcl 25 Mg Capsule 1 Cap PO QHS Ciprofloxacin Hcl 250 Mg Tablet 1 Tab PO BID Warfarin Sodium 2 Mg Tablet 1.5 Mg PO DAILY Gabapentin 300 Mg Capsule 300 Mg PO TID Zoloft (Sertraline Hcl) 100 Mg Tablet 1 Tab PO DAILY Vitals/I & O Vital Sign - Last 24 Hours 09/10/16 09/10/16 09/10/16 09/10/16 12:00 12:32 15:13 15:45 Temp 98.1 99.4 98.1 99.4 Pulse 88 91 Resp 14 18 B/P 123/84 120/82 Pulse Ox 96 89 96 O2 Delivery Room Air Room Air Room Air Room Air 09/10/16 09/10/16 09/10/16 09/10/16 17:39 17:39 19:00 20:00 Temp 98.9 98.9 Pulse 94 66 Resp 20 B/P 124/76 117/59 Pulse Ox 92 O2 Delivery Room Air Room Air Room Air 09/10/16 09/10/16 09/10/16 09/10/16 21:09 22:38 23:00 23:38 Temp 98.5 98.5 Pulse 81 Resp 18 20 20 20 B/P 115/51 Pulse Ox 92 O2 Delivery Room Air Room Air Room Air Room Air 09/11/16 09/11/16 09/11/16 09/11/16 01:09 03:00 07:00 07:27 Temp 98.2 99.2 98.2 99.2 Pulse 83 90 Resp 20 20 18 B/P 158/75 143/68 Pulse Ox 90 92 94 O2 Delivery Room Air Room Air Room Air Room Air 09/11/16 11:45 O2 Delivery Room Air Intake and Output 09/10/16 09/10/16 09/11/16 15:00 23:00 07:00 Intake Total 0 ml 240 ml 0 ml Balance 0 ml 240 ml 0 ml MELITA HEIN MD Sep 11, 2016 11:57
--- NOTE | 2016-09-11 12:25 | PDOC ---
Subjective: Subjective: Seen during dialysis. Admits to continued dark stools. Now agreeable to EGD and colonoscopy. Objective: Objective: Per RN dark stools continued. Vital Signs: Vital Signs Date Time Temp Pulse Resp B/P Pulse Ox O2 Delivery O2 Flow Rate FiO2 09/11/16 11:45 Room Air 09/11/16 07:27 94 09/11/16 07:00 99.2 90 18 143/68 99.2 Labs: Laboratory Tests Test 09/10/16 15:45 09/10/16 16:39 09/10/16 21:04 09/11/16 08:19 White Blood Count 10.9x10^3/uL Red Blood Count 2.41x10^6/uL Hemoglobin 6.5g/dL Hematocrit 19.7% Mean Corpuscular Volume 82fL Mean Corpuscular Hemoglobin 27pg Mean Corpuscular Hemoglobin Concent 33g/dL Red Cell Distribution Width 16.3% Platelet Count 199x10^3/uL Glucose (Fingerstick) 71mg/dL 75mg/dL 73mg/dL Test 09/11/16 08:30 Hemoglobin 5.8g/dL Prothrombin Time 17.8SEC Prothromb Time International Ratio 1.6 Sodium Level 141mmol/L Potassium Level 4.9mmol/L Chloride Level 104mmol/L Carbon Dioxide Level 29mmol/L Anion Gap 8 Blood Urea Nitrogen 52mg/dL Creatinine 5.8mg/dL Estimated GFR (Cockcroft-Gault) 9.0 Glucose Level 76mg/dL Calcium Level 8.1mg/dL Phosphorus Level 3.6mg/dL Magnesium Level 2.2mg/dL Albumin 1.6g/dL Current Medications PE: GEN: NAD, dialyzing LUNGS:clear anteriorly HEART: RRR ABD: S/ND/NT NEURO/PSYCH: A & O 3 A/P: Anemia, dark stools -Hgb still low, more transfusions planned -h/o A Fib on Coumadin, admitting INR 6, now 1.6 Hep C ESRD on HD -- Continue PPI. Clear today w/ prep. NPO at midnight for EGD and colonoscopy tomorrow. D/w RN, Dr. Rodrigues, GI lab. Also d/w THREADER yesterday - agreed to consent at that time, RN will call again today. JORGE YANG Sep 11, 2016 12:24
[2016-09-11] MEDS ORDERED: PEG 3350/NA SULF,BICARB,CL/KCL 4,000 ML SOLUTION. PO ONE (13:00)
[2016-09-11] MEDS: ONDANSETRON ODT 4 MG TAB.RAPDIS PO SCH ×3 (14:00→20:12)
[2016-09-11] MEDS: GABAPENTIN 300 MG CAPSULE. PO SCH (14:57)
[2016-09-11] MEDS: SERTRALINE 50 MG TABLET. PO SCH (14:58)
[2016-09-11] MEDS: OXYCODONE ER 10 MG TAB.ER.12H. PO SCH ×2 (14:58→20:12)
[2016-09-11] MEDS: ALLOPURINOL 100 MG TABLET. PO SCH (14:58)
[2016-09-11] MEDS: CARVEDILOL 12.5 MG TABLET PO SCH ×2 (14:59→17:14)
[2016-09-11] MEDS: LIDOCAINE (700MG/PATCH) PATCH. TP SCH (15:00)
[2016-09-11] MEDS: NORTRIPTYLINE 25 MG CAPSULE PO SCH (20:12)
[2016-09-12 02:55] VITALS: BP 109/62
[2016-09-12] MEDS: PANTOPRAZOLE SODIUM IV 80 MG in IV NORMAL SALINE 100ML 100 ML IV SCH ×2 (04:36→12:00)
[2016-09-12 04:51] LABS: BASO % 1 % (0-3); EOS % 3 % (0-3); LYMPH # 2.5 x10^3/uL (1.0-4.8); LYMPH % 31 % (24-48); MEAN CORPUSCULAR HEMOGLOBIN 28 pg (25-35); MEAN CORPUSCULAR HGB CONC 33 g/dL (31-37); MEAN CORPUSCULAR VOLUME 83 fL (79-100); MONO % 11 % (0-9); NEUT % 56 % (31-73); PLATELET COUNT 180 x10^3/uL (140-400); RED BLOOD COUNT 2.03 x10^6/uL (3.50-5.40); WHITE BLOOD COUNT 8.3 x10^3/uL (4.0-11.0)
[2016-09-12 04:56] LABS: HEMOGLOBIN 5.6 g/dL (12.0-15.5)
[2016-09-12 04:57] LABS: HEMATOCRIT 16.9 % (36.0-47.0)
[2016-09-12 05:19] LABS: INR 1.5 (0.8-1.1); PROTHROMBIN TIME PATIENT 17.1 SEC (11.7-14.0)
[2016-09-12 05:22] LABS: ALBUMIN 1.4 g/dL (3.4-5.0); CALCIUM 7.8 mg/dL (8.5-10.1); GFR 19.3; PHOSPHORUS 3.1 mg/dL (2.6-4.7); POTASSIUM 4.1 mmol/L (3.5-5.1)
[2016-09-12] MEDS: ONDANSETRON ODT 4 MG TAB.RAPDIS PO SCH ×3 (05:52→22:00)
[2016-09-12] MEDS: IPRATRPIUM/ALBUTEROL 0.5/2.5MG 3 ML NEBU. NEB SCH ×4 (06:44→19:32)
[2016-09-12] MEDS: BUDESONIDE 0.5 MG/2 ML NEBU NEB SCH ×2 (06:44→19:32)
[2016-09-12] MEDS ORDERED: PROCHLORPERAZINE 10 MG/2 ML VIAL. IV PRN (07:00)
[2016-09-12] MEDS ORDERED: LIDOCAINE 1% 1 ML SYRINGE. ID PRN (07:00)
[2016-09-12] MEDS ORDERED: FENTANYL PF 100 MCG/2 ML VIAL. IV PRN ×2 (07:00)
[2016-09-12] MEDS ORDERED: IV RINGERS,LACTATED 1000ML 1,000 ML IV SCH (07:00)
[2016-09-12 07:22] VITALS: BP 90/51
[2016-09-12] MEDS: CARVEDILOL 12.5 MG TABLET PO SCH ×2 (08:00→17:00)
[2016-09-12] MEDS: OXYCODONE ER 10 MG TAB.ER.12H. PO SCH ×2 (09:00→21:00)
[2016-09-12] MEDS: SERTRALINE 50 MG TABLET. PO SCH (09:00)
[2016-09-12] MEDS: ALLOPURINOL 100 MG TABLET. PO SCH (09:00)
[2016-09-12] MEDS: GABAPENTIN 300 MG CAPSULE. PO SCH (09:00)
[2016-09-12] MEDS: LIDOCAINE (700MG/PATCH) PATCH. TP SCH (09:00)
--- NOTE | 2016-09-12 10:07 | PDOC ---
SUBJECTIVE ROS ESRD Doing same overall - had a fall . She is not co-operative currently OBJECTIVE Vital Signs Vital Signs Date Time Temp Pulse Resp B/P Pulse Ox O2 Delivery O2 Flow Rate FiO2 09/12/16 07:22 98.6 88 18 90/51 91 Room Air 98.6 09/12/16 06:45 2.0 I & 0 Intake and Output 09/12/16 07:00 Intake Total 470 ml Balance 470 ml Intake Oral 120 ml Blood Product IV Normal Saline Flush 350 ml # Voids 5 # Bowel Movements 3 PHYSICAL EXAM Physical Exam General Appearance: Awake rel more Alert Oriented x 1-2; somewhat lethargic In no Distress; Obese AAF Eyes: Sclera anicteric Conjunctiva Pallish EN: No EN Drainage Mucous Memb. dryish - Somewhat Hirsuit Neck: no JVD no JVP Supple no Thyromegaly; short thick neck CVS: S1 S2 soft Murmur No Gallop No Rub no Edema Resp: no Rales no Rhonchi no Acc. Muscle use GI: BS +ve NO Bruit Non Tender x min in Epigastrium Non Distended : no CVA tenderness; no Suprapubic Tenderness ASSESSMENT/PLAN Assessment/Plan ESRD.HD later today duarte if she needs further BT ; Anemia:? asso with bloodloss/ GI bleed. for EGD and colonoscopy later today. Some resistance to Epogen from recent Cath infection cannot be ruled out. Transfuse with next HD as needed. Hypo TN: Hold BP meds until GI bleed issues are sorted out Sev. Hypoalbuminemia - ? 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/RELEVANT DATA Meds Current Medications Medications (Trade) Dose Ordered Sig/César Start Time Stop Time Status Last Admin Dose Admin Acetaminophen (Tylenol) 325 mg PRN Q4HRS 09/09/16 23:30 09/09/16 23:30 DC Albuterol Sulfate 2.5 mg 2.5 mg PRN Q4HRS PRN 09/09/16 23:30 Albuterol/ Ipratropium (Duoneb) 3 ml RTQID 09/10/16 08:00 09/12/16 06:44 3 ML Allopurinol (Zyloprim) 100 mg DAILY 09/10/16 09:00 09/11/16 14:58 100 MG Bisacodyl (Dulcolax Supp) 10 mg PRN DAILY PRN 09/09/16 23:30 Budesonide (Pulmicort) 0.5 mg RTBID 09/10/16 08:00 09/12/16 06:44 0.5 MG Carvedilol (Coreg) 25 mg BIDWMEALS 09/10/16 08:00 09/11/16 17:14 25 MG Cyclobenzaprine HCl (Flexeril) 10 mg PRN TID PRN 09/09/16 23:30 09/10/16 21:09 10 MG Diphenhydramine HCl (Benadryl) 25 mg 1X PRN PRN 09/11/16 09:00 09/12/16 08:59 DC Fentanyl Citrate (Fentanyl 2ml Vial) 25 mcg PRN Q5MIN PRN 09/12/16 07:00 09/13/16 06:59 Fentanyl Citrate 50 mcg 50 mcg PRN Q5MIN PRN 09/12/16 07:00 09/13/16 06:59 Gabapentin (Neurontin) 300 mg DAILY 09/10/16 09:00 09/11/16 14:57 300 MG Hydromorphone HCl 1 mg 1 mg 1X ONCE 09/09/16 19:15 09/09/16 19:16 DC 09/09/16 19:21 1 MG Info (PHARMACY MONITORING -- do not chart) 1 each PRN DAILY PRN 09/11/16 09:00 UNV Ipratropium [place] (Atrovent) 0.2 mg QID 09/10/16 09:00 UNV Labetalol HCl (Normodyne) 20 mg PRN Q2HR PRN 09/09/16 23:30 Labetalol HCl 10 mg 10 mg PRN Q1HR PRN 09/11/16 09:00 09/12/16 08:59 DC Lactated Ringer's (Iv Lactated Ringers) 1,000 ml @ 0 mls/hr Q0M 09/12/16 07:00 09/12/16 18:59 Lidocaine (Lidoderm) 1 patch DAILY 09/10/16 09:00 09/11/16 15:00 1 PATCH Lidocaine HCl 2 ml 1X PRN PRN 09/12/16 07:00 09/13/16 06:59 Magnesium Sulfate/ Dextrose (Magnesium Sulfate PREMIX 2GM) 50 ml @ 25 mls/hr PRN DAILY PRN 09/10/16 10:00 Multi-Ingredient Mouthwash/Gargle 15 ml 15 ml 1X ONCE 09/09/16 23:30 09/09/16 23:31 DC 09/09/16 23:41 15 ML Non-Formulary Medication 1 puff BID 09/10/16 09:00 UNV Nortriptyline HCl (Pamelor) 25 mg QHS 09/10/16 21:00 09/11/16 20:12 25 MG Ondansetron HCl (Zofran Odt) 8 mg Q8HRS 09/10/16 06:00 09/11/16 20:12 8 MG Ondansetron HCl (Zofran) 4 mg PRN Q8HRS PRN 09/09/16 19:30 09/10/16 19:29 DC 09/09/16 19:51 4 MG Oxycodone HCl (Oxycontin) 10 mg BID 09/10/16 09:00 09/11/16 20:12 10 MG Oxycodone/ Acetaminophen (Percocet 10/325) 1 tab PRN Q4HRS PRN 09/09/16 23:30 09/10/16 22:38 1 TAB Oxycodone/ Acetaminophen (Percocet 5/325) 1 tab 1X ONCE 09/09/16 19:00 09/09/16 19:01 DC Pantoprazole Sodium (Protonix Vial) 40 mg DAILYAC 09/13/16 07:30 UNV Pantoprazole Sodium 80 mg/ Sodium Chloride 100 ml @ 10 mls/hr Q10H 09/10/16 10:00 09/13/16 09:59 09/12/16 04:36 10 MLS/HR Pantoprazole Sodium/Sodium Chloride (Protonix Iv/Iv Sodium Chloride 0.9% 100ml) 100 ml @ 10 mls/hr 1X ONCE 09/09/16 19:30 09/10/16 05:29 DC 09/09/16 19:51 10 MLS/HR Phytonadione/ Sodium Chloride (Vitamin K/Iv Sodium Chloride 0.9% 50ml) 51 ml @ 102 mls/hr 1X ONCE 09/10/16 00:00 09/10/16 00:29 DC 09/10/16 02:07 102 MLS/HR Prochlorperazine Edisylate (Compazine) 5 mg PACU PRN PRN 09/12/16 07:00 09/13/16 06:59 Sertraline HCl (Zoloft) 100 mg DAILY 09/10/16 09:00 09/11/16 14:58 100 MG Sodium Chloride (Iv Sodium Chloride 0.9% 1000ml Bag) 1,000 ml @ 400 mls/hr Q2H30M PRN 09/11/16 08:50 09/11/16 20:49 DC Sodium Chloride (Normal Saline Flush) 10 ml 1X PRN PRN 09/11/16 09:00 09/12/16 08:59 DC Sodium Cl/Sod Bicarb/Potass Cl/ PEG (Golytely) 4,000 ml 1X ONCE 09/11/16 13:00 09/11/16 13:01 DC 09/11/16 17:13 4,000 ML Lab Laboratory Tests Test 09/11/16 15:49 09/11/16 20:10 09/11/16 21:05 09/12/16 04:16 Glucose (Fingerstick) 74mg/dL (70-99) 49mg/dL (70-99) 86mg/dL (70-99) White Blood Count 8.3x10^3/uL (4.0-11.0) Red Blood Count 2.03x10^6/uL (3.50-5.40) Hemoglobin 5.6g/dL (12.0-15.5) Hematocrit 16.9% (36.0-47.0) Mean Corpuscular Volume 83fL (79-100) Mean Corpuscular Hemoglobin 28pg (25-35) Mean Corpuscular Hemoglobin Concent 33g/dL (31-37) Red Cell Distribution Width 16.0% (11.5-14.5) Platelet Count 180x10^3/uL (140-400) Neutrophils (%) (Auto) 56% (31-73) Lymphocytes (%) (Auto) 31% (24-48) Monocytes (%) (Auto) 11% (0-9) Eosinophils (%) (Auto) 3% (0-3) Basophils (%) (Auto) 1% (0-3) Neutrophils # (Auto) 4.6x10^3uL (1.8-7.7) Lymphocytes # (Auto) 2.5x10^3/uL (1.0-4.8) Monocytes # (Auto) 0.9x10^3/uL (0.0-1.1) Eosinophils # (Auto) 0.2x10^3/uL (0.0-0.7) Basophils # (Auto) 0.0x10^3/uL (0.0-0.2) Prothrombin Time 17.1SEC (11.7-14.0) Prothromb Time International Ratio 1.5 (0.8-1.1) Sodium Level 141mmol/L (136-145) Potassium Level 4.1mmol/L (3.5-5.1) Chloride Level 105mmol/L (98-107) Carbon Dioxide Level 29mmol/L (21-32) Anion Gap 7 (6-14) Blood Urea Nitrogen 23mg/dL (7-20) Creatinine 3.0mg/dL (0.6-1.0) Estimated GFR (Cockcroft-Gault) 19.3 Glucose Level 77mg/dL (70-99) Calcium Level 7.8mg/dL (8.5-10.1) Phosphorus Level 3.1mg/dL (2.6-4.7) Magnesium Level 1.7mg/dL (1.8-2.4) Albumin 1.4g/dL (3.4-5.0) Test 09/12/16 07:26 Glucose (Fingerstick) 71mg/dL (70-99) HERMELINDA MCINTYRE MD Sep 12, 2016 10:07
--- NOTE | 2016-09-12 11:07 | PDOC ---
PROGRESS NOTES Chief Complaint Chief Complaint Melena Acute blood loss anemia, GI bleed, ESRD, on HD MWF Coagulopathy, on Coumadin for afib, HTN Asthma Obesity, back pain, NON iNJURY FALL (09/12) History of Present Illness History of Present Illness hgb remains 5 plus despite BT Pt had a non injury fall this AM and now refusing EGD and BT FAmily contacted - gives consent for BT and EGD PALn: Transfuse 2 pRBC HD per renal EGD plans today Make NPO Start Protonix IV Dw case mx, RN Vitals Vitals Vital Signs Date Time Temp Pulse Resp B/P Pulse Ox O2 Delivery O2 Flow Rate FiO2 09/12/16 07:22 98.6 88 18 90/51 91 Room Air 98.6 09/12/16 06:45 2.0 Physical Exam General: Alert, Oriented X3, Cooperative, No acute distress, Other Heart: Normal S1, Normal S2 Lungs: Clear Abdomen: Normal bowel sounds, Soft Extremities: No clubbing, No cyanosis Skin: No rashes Labs LABS Laboratory Tests Test 09/11/16 15:49 09/11/16 20:10 09/11/16 21:05 09/12/16 04:16 Glucose (Fingerstick) 74mg/dL (70-99) 49mg/dL (70-99) 86mg/dL (70-99) White Blood Count 8.3x10^3/uL (4.0-11.0) Red Blood Count 2.03x10^6/uL (3.50-5.40) Hemoglobin 5.6g/dL (12.0-15.5) Hematocrit 16.9% (36.0-47.0) Mean Corpuscular Volume 83fL (79-100) Mean Corpuscular Hemoglobin 28pg (25-35) Mean Corpuscular Hemoglobin Concent 33g/dL (31-37) Red Cell Distribution Width 16.0% (11.5-14.5) Platelet Count 180x10^3/uL (140-400) Neutrophils (%) (Auto) 56% (31-73) Lymphocytes (%) (Auto) 31% (24-48) Monocytes (%) (Auto) 11% (0-9) Eosinophils (%) (Auto) 3% (0-3) Basophils (%) (Auto) 1% (0-3) Neutrophils # (Auto) 4.6x10^3uL (1.8-7.7) Lymphocytes # (Auto) 2.5x10^3/uL (1.0-4.8) Monocytes # (Auto) 0.9x10^3/uL (0.0-1.1) Eosinophils # (Auto) 0.2x10^3/uL (0.0-0.7) Basophils # (Auto) 0.0x10^3/uL (0.0-0.2) Prothrombin Time 17.1SEC (11.7-14.0) Prothromb Time International Ratio 1.5 (0.8-1.1) Sodium Level 141mmol/L (136-145) Potassium Level 4.1mmol/L (3.5-5.1) Chloride Level 105mmol/L (98-107) Carbon Dioxide Level 29mmol/L (21-32) Anion Gap 7 (6-14) Blood Urea Nitrogen 23mg/dL (7-20) Creatinine 3.0mg/dL (0.6-1.0) Estimated GFR (Cockcroft-Gault) 19.3 Glucose Level 77mg/dL (70-99) Calcium Level 7.8mg/dL (8.5-10.1) Phosphorus Level 3.1mg/dL (2.6-4.7) Magnesium Level 1.7mg/dL (1.8-2.4) Albumin 1.4g/dL (3.4-5.0) Test 09/12/16 07:26 Glucose (Fingerstick) 71mg/dL (70-99) Review of Systems Review of Systems refuses to participate Assessment and Plan Assessmemt and Plan Problems Medical Problems: (1) Anemia Status: Acute (2) Coagulopathy Status: Acute (3) Coumadin toxicity Status: Acute (4) Elevated INR (international normalized ratio) due to prior anticoagulant medication ingestion Status: Acute (5) ESRD on dialysis Status: Acute (6) GI bleed Status: Acute Problems: Comment Review of Relevant I have reviewed the following items christi (where applicable) has been applied. Labs Laboratory Tests Test 09/10/16 15:45 09/10/16 16:39 09/10/16 21:04 09/11/16 08:19 White Blood Count 10.9x10^3/uL (4.0-11.0) Red Blood Count 2.41x10^6/uL (3.50-5.40) Hemoglobin 6.5g/dL (12.0-15.5) Hematocrit 19.7% (36.0-47.0) Mean Corpuscular Volume 82fL (79-100) Mean Corpuscular Hemoglobin 27pg (25-35) Mean Corpuscular Hemoglobin Concent 33g/dL (31-37) Red Cell Distribution Width 16.3% (11.5-14.5) Platelet Count 199x10^3/uL (140-400) Glucose (Fingerstick) 71mg/dL (70-99) 75mg/dL (70-99) 73mg/dL (70-99) Test 09/11/16 08:30 09/11/16 15:49 09/11/16 20:10 09/11/16 21:05 Hemoglobin 5.8g/dL (12.0-15.5) Prothrombin Time 17.8SEC (11.7-14.0) Prothromb Time International Ratio 1.6 (0.8-1.1) Sodium Level 141mmol/L (136-145) Potassium Level 4.9mmol/L (3.5-5.1) Chloride Level 104mmol/L (98-107) Carbon Dioxide Level 29mmol/L (21-32) Anion Gap 8 (6-14) Blood Urea Nitrogen 52mg/dL (7-20) Creatinine 5.8mg/dL (0.6-1.0) Estimated GFR (Cockcroft-Gault) 9.0 Glucose Level 76mg/dL (70-99) Calcium Level 8.1mg/dL (8.5-10.1) Phosphorus Level 3.6mg/dL (2.6-4.7) Magnesium Level 2.2mg/dL (1.8-2.4) Albumin 1.6g/dL (3.4-5.0) Glucose (Fingerstick) 74mg/dL (70-99) 49mg/dL (70-99) 86mg/dL (70-99) Test 09/12/16 04:16 09/12/16 07:26 White Blood Count 8.3x10^3/uL (4.0-11.0) Red Blood Count 2.03x10^6/uL (3.50-5.40) Hemoglobin 5.6g/dL (12.0-15.5) Hematocrit 16.9% (36.0-47.0) Mean Corpuscular Volume 83fL (79-100) Mean Corpuscular Hemoglobin 28pg (25-35) Mean Corpuscular Hemoglobin Concent 33g/dL (31-37) Red Cell Distribution Width 16.0% (11.5-14.5) Platelet Count 180x10^3/uL (140-400) Neutrophils (%) (Auto) 56% (31-73) Lymphocytes (%) (Auto) 31% (24-48) Monocytes (%) (Auto) 11% (0-9) Eosinophils (%) (Auto) 3% (0-3) Basophils (%) (Auto) 1% (0-3) Neutrophils # (Auto) 4.6x10^3uL (1.8-7.7) Lymphocytes # (Auto) 2.5x10^3/uL (1.0-4.8) Monocytes # (Auto) 0.9x10^3/uL (0.0-1.1) Eosinophils # (Auto) 0.2x10^3/uL (0.0-0.7) Basophils # (Auto) 0.0x10^3/uL (0.0-0.2) Prothrombin Time 17.1SEC (11.7-14.0) Prothromb Time International Ratio 1.5 (0.8-1.1) Sodium Level 141mmol/L (136-145) Potassium Level 4.1mmol/L (3.5-5.1) Chloride Level 105mmol/L (98-107) Carbon Dioxide Level 29mmol/L (21-32) Anion Gap 7 (6-14) Blood Urea Nitrogen 23mg/dL (7-20) Creatinine 3.0mg/dL (0.6-1.0) Estimated GFR (Cockcroft-Gault) 19.3 Glucose Level 77mg/dL (70-99) Calcium Level 7.8mg/dL (8.5-10.1) Phosphorus Level 3.1mg/dL (2.6-4.7) Magnesium Level 1.7mg/dL (1.8-2.4) Albumin 1.4g/dL (3.4-5.0) Glucose (Fingerstick) 71mg/dL (70-99) Laboratory Tests Test 09/11/16 15:49 09/11/16 20:10 09/11/16 21:05 09/12/16 04:16 Glucose (Fingerstick) 74mg/dL (70-99) 49mg/dL (70-99) 86mg/dL (70-99) White Blood Count 8.3x10^3/uL (4.0-11.0) Red Blood Count 2.03x10^6/uL (3.50-5.40) Hemoglobin 5.6g/dL (12.0-15.5) Hematocrit 16.9% (36.0-47.0) Mean Corpuscular Volume 83fL (79-100) Mean Corpuscular Hemoglobin 28pg (25-35) Mean Corpuscular Hemoglobin Concent 33g/dL (31-37) Red Cell Distribution Width 16.0% (11.5-14.5) Platelet Count 180x10^3/uL (140-400) Neutrophils (%) (Auto) 56% (31-73) Lymphocytes (%) (Auto) 31% (24-48) Monocytes (%) (Auto) 11% (0-9) Eosinophils (%) (Auto) 3% (0-3) Basophils (%) (Auto) 1% (0-3) Neutrophils # (Auto) 4.6x10^3uL (1.8-7.7) Lymphocytes # (Auto) 2.5x10^3/uL (1.0-4.8) Monocytes # (Auto) 0.9x10^3/uL (0.0-1.1) Eosinophils # (Auto) 0.2x10^3/uL (0.0-0.7) Basophils # (Auto) 0.0x10^3/uL (0.0-0.2) Prothrombin Time 17.1SEC (11.7-14.0) Prothromb Time International Ratio 1.5 (0.8-1.1) Sodium Level 141mmol/L (136-145) Potassium Level 4.1mmol/L (3.5-5.1) Chloride Level 105mmol/L (98-107) Carbon Dioxide Level 29mmol/L (21-32) Anion Gap 7 (6-14) Blood Urea Nitrogen 23mg/dL (7-20) Creatinine 3.0mg/dL (0.6-1.0) Estimated GFR (Cockcroft-Gault) 19.3 Glucose Level 77mg/dL (70-99) Calcium Level 7.8mg/dL (8.5-10.1) Phosphorus Level 3.1mg/dL (2.6-4.7) Magnesium Level 1.7mg/dL (1.8-2.4) Albumin 1.4g/dL (3.4-5.0) Test 09/12/16 07:26 Glucose (Fingerstick) 71mg/dL (70-99) Medications Current Medications Oxycodone/ Acetaminophen (Percocet 5/325) 1 tab 1X ONCE PO ; Start 09/09/16 at 19:00; Stop 09/09/16 at 19:01; Status DC Hydromorphone HCl 1 mg 1 mg 1X ONCE IV Last administered on 09/09/16 19:21; Start 09/09/16 at 19:15; Stop 09/09/16 at 19:16; Status DC Pantoprazole Sodium/Sodium Chloride (Protonix Iv/Iv Sodium Chloride 0.9% 100ml) 100 ml @ 10 mls/hr 1X ONCE IV Last administered on 09/09/16 19:51; Start at 19:30; Stop 09/10/16 at 05:29; Status DC Ondansetron HCl 4 mg 4 mg PRN Q8HRS PRN IV NAUSEA/VOMITING Last administered on 09/09/16 19:51; Start 09/09/16 at 19:30; Stop 09/10/16 at 19:29; Status DC Sodium Chloride (Iv Sodium Chloride 0.9% 1000ml Bag) 1,000 ml @ 100 mls/hr Q10H IV Last administered on 09/09/16 19:51; Start 09/09/16 at 19:30; Stop at 06:00; Status DC Acetaminophen (Tylenol) 650 mg PRN Q4HRS PRN PO FEVER Last administered on 09/09 19:52; Start 09/09/16 at 19:30; Stop 09/10/16 at 19:29; Status DC Multi-Ingredient Mouthwash/Gargle 15 ml 15 ml 1X ONCE SWSW Last administered on 09/09/16 23:41; Start 09/09/16 at 23:30; Stop 09/09/16 at 23:31; Status DC Phytonadione/ Sodium Chloride (Vitamin K/Iv Sodium Chloride 0.9% 50ml) 51 ml @ 102 mls/hr 1X ONCE IV Last administered on 09/10/16 02:07; Start 09/10/16 at 00:00; Stop 09/10/16 at 00:29; Status DC Acetaminophen (Tylenol) 325 mg PRN Q4HRS PO ; Start 09/09/16 at 23:30; Stop at 23:30; Status DC Allopurinol (Zyloprim) 100 mg DAILY PO Last administered on 09/11/16 14:58; Start 09/10/16 at 09:00 Bisacodyl (Dulcolax Supp) 10 mg PRN DAILY PRN RC CONSTIPATION; Start 09/09/16 at 23:30 Cyclobenzaprine HCl (Flexeril) 10 mg PRN TID PRN PO back pain Last administered on 09/10/16 21:09; Start 09/09/16 at 23:30 Gabapentin (Neurontin) 300 mg DAILY PO Last administered on 09/11/16 14:57; Start 09/10/16 at 09:00 Ipratropium [place] (Atrovent) 0.2 mg QID NEB ; Start 09/10/16 at 09:00; Status UNV Lidocaine (Lidoderm) 1 patch DAILY TP Last administered on 09/11/16 15:00; Start 09/10/16 at 09:00 Nortriptyline HCl (Pamelor) 25 mg QHS PO Last administered on 09/11/16 20:12; Start 09/10/16 at 21:00 Oxycodone HCl (Oxycontin) 10 mg BID PO Last administered on 09/11/16 20:12; Start 09/10/16 at 09:00 Oxycodone/ Acetaminophen (Percocet 10/325) 1 tab PRN Q4HRS PRN PO SEVERE PAIN Last administered on 09/10/16 22:38; Start 09/09/16 at 23:30 Non-Formulary Medication 2 puff Q4HRS INH FOR ASTHMA; Start 09/10/16 at 00:00; Status UNV Carvedilol (Coreg) 25 mg BIDWMEALS PO Last administered on 09/11/16 17:14; Start 09/10/16 at 08:00 Non-Formulary Medication 1 puff BID IH ; Start 09/10/16 at 09:00; Status UNV Ondansetron HCl (Zofran Odt) 8 mg Q8HRS PO Last administered on 09/11/16 20:12 ; Start 09/10/16 at 06:00 Sertraline HCl (Zoloft) 100 mg DAILY PO Last administered on 09/11/16 14:58; Start 09/10/16 at 09:00 Labetalol HCl (Normodyne) 20 mg PRN Q2HR PRN IVP HYPERTENSION, SEE COMMENTS; Start 09/09/16 at 23:30 Albuterol/ Ipratropium (Duoneb) 3 ml RTQID NEB Last administered on 09/12/16 06:44; Start 09/10/16 at 08:00 Budesonide (Pulmicort) 0.5 mg RTBID NEB Last administered on 09/12/16 06:44; Start 09/10/16 at 08:00 Albuterol Sulfate 2.5 mg 2.5 mg PRN Q4HRS PRN NEB SHORTNESS OF BREATH; Start at 23:30 Pantoprazole Sodium 80 mg/ Sodium Chloride 100 ml @ 10 mls/hr Q10H IV Last administered on 09/12/16 04:36; Start 09/10/16 at 10:00; Stop 09/13/16 at 09:59 Magnesium Sulfate/ Dextrose 50 ml @ 25 mls/hr PRN DAILY PRN IV for Mag < 1.7 on am labs; Start 09/10/16 at 10:00 Sodium Chloride (Iv Sodium Chloride 0.9% 1000ml Bag) 1,000 ml @ 1,000 mls/hr Q1H PRN IV hypotension; Start 09/11/16 at 08:50; Stop 09/11/16 at 14:49; Status DC Diphenhydramine HCl (Benadryl) 25 mg 1X PRN PRN IV ITCHING; Start 09/11/16 at 09:00; Stop 09/12/16 at 08:59; Status DC Diphenhydramine HCl (Benadryl) 25 mg 1X PRN PRN IV ITCHING; Start 09/11/16 at 09:00; Stop 09/12/16 at 08:59; Status DC Sodium Chloride (Normal Saline Flush) 10 ml 1X PRN PRN IV AP catheter pack; Start 09/11/16 at 09:00; Stop 09/12/16 at 08:59; Status DC Sodium Chloride (Normal Saline Flush) 10 ml 1X PRN PRN IV [employer]IST catheter pack; Start 09/11/16 at 09:00; Stop 09/12/16 at 08:59; Status DC Labetalol HCl 10 mg 10 mg PRN Q1HR PRN IVP SBP > 180; Start 09/11/16 at 09:00; Stop 09/12/16 at 08:59; Status DC Sodium Chloride (Iv Sodium Chloride 0.9% 1000ml Bag) 1,000 ml @ 400 mls/hr Q2H30M PRN IV PATENCY; Start 09/11/16 at 08:50; Stop 09/11/16 at 20:49; Status DC Info (PHARMACY MONITORING -- do not chart) 1 each PRN DAILY PRN MC SEE COMMENTS ; Start 09/11/16 at 09:00 Info (PHARMACY MONITORING -- do not chart) 1 each PRN DAILY PRN MC SEE COMMENTS ; Start 09/11/16 at 09:00; Status UNV Sodium Cl/Sod Bicarb/Potass Cl/ PEG (Golytely) 4,000 ml 1X ONCE PO Last administered on 09/11/16t 17:13; Start 09/11/16 at 13:00; Stop 09/11/16 at 13:01 ; Status DC Fentanyl Citrate (Fentanyl 2ml Vial) 25 mcg PRN Q5MIN PRN IV MILD PAIN; Start 09/12/16 at 07:00; Stop 09/13/16 at 06:59 Fentanyl Citrate 50 mcg 50 mcg PRN Q5MIN PRN IV MODERATE PAIN; Start 09/12/16 at 07:00; Stop 09/13/16 at 06:59 Lactated Ringer's (Iv Lactated Ringers) 1,000 ml @ 0 mls/hr Q0M IV ; Start at 07:00; Stop 09/12/16 at 18:59 Lidocaine HCl 2 ml 1X PRN PRN ID IV START; Start 09/12/16 at 07:00; Stop at 06:59 Prochlorperazine Edisylate (Compazine) 5 mg PACU PRN PRN IV NAUSEA; Start 09/12 at 07:00; Stop 09/13/16 at 06:59 Pantoprazole Sodium (Protonix Vial) 40 mg DAILYAC IVP ; Start 09/13/16 at 07:30 ; Status UNV Active Scripts Active Reported [Mylanta] Tylenol (Acetaminophen) 325 Mg Tablet 1 Tab PO PRN Q4HRS Fleet Enema (Na Phos,M-B/Na Phos,Di-Ba) 133 Ml Enema 1 Each RC ONCE Dulcolax (Bisacodyl) 10 Mg Supp.rect 10 Mg RC PRN DAILY PRN Zofran Odt (Ondansetron) 8 Mg Tab.rapdis 1 Tab PO Q8HRS Nitrostat (Nitroglycerin) 0.4 Mg Tab.subl 1 Tab SL UD Cyclobenzaprine Hcl 10 Mg Tablet 1 Tab PO TID Zepatier 50-100 mg Tablet (Elbasvir/Grazoprevir) 1 Each Tablet 1 Each PO [PhosLo] Coreg (Carvedilol) 25 Mg Tablet 1 Tab PO BID Aspirin 81 Mg Tab.chew 1 Tab PO DAILY Allopurinol 100 Mg Tablet 1 Tab PO DAILY Ventolin Hfa Inhaler (Albuterol Sulfate) 18 Gm Hfa.aer.ad 2 Puff INH Q4HRS Nephplex Rx Tablet (Vit B Cmplx No3/Fa/C/Biot/Zinc) 1 Each Tablet 1 Each PO Senokot (Sennosides) 8.6 Mg Tablet 1 Tab PO BID Oxycontin (Oxycodone HCl) 10 Mg Tab.er.12h 10 Mg PO BID Glycolax (Polyethylene Glycol 3350) 119 Gm Powder 17 Gm PO UD Percocet 10-325 Mg Tablet (Oxycodone/Acetaminophen) 1 Each Tablet 1 Tab PO Q4- 6HRS Vitamin D3 (Cholecalciferol (Vitamin D3)) 1,000 Unit Tablet 1 Tab PO DAILY Advair 250-50 Diskus (Fluticasone/Salmeterol) 1 Each Disk.w.dev 1 Puff IH BID Ipratropium [place] 0.2 Mg/1 Ml Solution 1 Vial NEB QID Lidoderm (Lidocaine) 700 Mg Adh..patch 1 Patch TP DAILY Nortriptyline Hcl 25 Mg Capsule 1 Cap PO QHS Ciprofloxacin Hcl 250 Mg Tablet 1 Tab PO BID Warfarin Sodium 2 Mg Tablet 1.5 Mg PO DAILY Gabapentin 300 Mg Capsule 300 Mg PO TID Zoloft (Sertraline Hcl) 100 Mg Tablet 1 Tab PO DAILY Vitals/I & O Vital Sign - Last 24 Hours 09/11/16 09/11/16 09/11/16 09/11/16 11:45 14:55 14:58 14:59 Temp 99.2 99.2 Pulse 96 96 Resp 18 B/P 111/74 111/74 Pulse Ox 94 O2 Delivery Room Air Nasal Cannula O2 Flow Rate 2.0 09/11/16 09/11/16 09/11/16 09/11/16 15:00 15:10 15:19 16:10 Temp 99.7 97.7 98.4 99.7 97.7 98.4 Pulse 96 94 85 Resp 16 18 16 B/P 111/74 119/72 98/67 Pulse Ox 100 O2 Delivery Room Air Nasal Cannula O2 Flow Rate 2.0 09/11/16 09/11/16 09/11/16 09/11/16 17:00 17:14 19:35 19:38 Temp 98.4 98.4 Pulse 85 85 Resp 18 B/P 112/69 112/69 O2 Delivery Nasal Cannula Nasal Cannula O2 Flow Rate 2.0 2.0 09/11/16 09/11/16 09/11/16 09/11/16 19:57 20:00 20:12 23:09 Temp 98.6 98.0 98.6 98.0 Pulse 78 78 Resp 18 18 B/P 90/70 132/72 Pulse Ox 90 90 100 O2 Delivery Nasal Cannula Nasal Cannula Room Air Nasal Cannula O2 Flow Rate 2.0 2.0 2.0 3.0 09/12/16 09/12/16 09/12/16 09/12/16 00:12 02:55 06:45 07:22 Temp 98.9 98.6 98.9 98.6 Pulse 79 88 Resp 18 18 B/P 109/62 90/51 Pulse Ox 100 96 100 91 O2 Delivery Nasal Cannula Room Air Nasal Cannula Room Air O2 Flow Rate 3.0 2.0 Intake and Output 09/11/16 09/11/16 09/12/16 15:00 23:00 07:00 Intake Total 150 ml 320 ml Balance 150 ml 320 ml MELITA HEIN MD Sep 12, 2016 11:07
[2016-09-12] MEDS ORDERED: MAGNESIUM SULFATE 2GM 50 ML IV ONE (11:30)
[2016-09-12] MEDS ORDERED: PROPOFOL 20 ML IV ONE (12:55)
[2016-09-12] MEDS ORDERED: LIDOCAINE 2% PF Vial for OR 5 ML VIAL. ONE (12:55)
[2016-09-12] MEDS ORDERED: PROPOFOL 0 ML IV ONE (12:55)
--- NOTE | 2016-09-12 13:59 | PDOC ---
Subjective: Subjective: Wants to be left alone. Objective: Objective: Per staff/chart - pt refusing 'scopes, transfusion, all care. Vital Signs: Vital Signs Date Time Temp Pulse Resp B/P Pulse Ox O2 Delivery O2 Flow Rate FiO2 09/12/16 08:00 Nasal Cannula 2.0 09/12/16 07:22 98.6 88 18 90/51 91 98.6 Labs: Laboratory Tests Test 09/11/16 15:49 09/11/16 20:10 09/11/16 21:05 09/12/16 04:16 Glucose (Fingerstick) 74mg/dL 49mg/dL 86mg/dL White Blood Count 8.3x10^3/uL Red Blood Count 2.03x10^6/uL Hemoglobin 5.6g/dL Hematocrit 16.9% Mean Corpuscular Volume 83fL Mean Corpuscular Hemoglobin 28pg Mean Corpuscular Hemoglobin Concent 33g/dL Red Cell Distribution Width 16.0% Platelet Count 180x10^3/uL Neutrophils (%) (Auto) 56% Lymphocytes (%) (Auto) 31% Monocytes (%) (Auto) 11% Eosinophils (%) (Auto) 3% Basophils (%) (Auto) 1% Neutrophils # (Auto) 4.6x10^3uL Lymphocytes # (Auto) 2.5x10^3/uL Monocytes # (Auto) 0.9x10^3/uL Eosinophils # (Auto) 0.2x10^3/uL Basophils # (Auto) 0.0x10^3/uL Prothrombin Time 17.1SEC Prothromb Time International Ratio 1.5 Sodium Level 141mmol/L Potassium Level 4.1mmol/L Chloride Level 105mmol/L Carbon Dioxide Level 29mmol/L Anion Gap 7 Blood Urea Nitrogen 23mg/dL Creatinine 3.0mg/dL Estimated GFR (Cockcroft-Gault) 19.3 Glucose Level 77mg/dL Calcium Level 7.8mg/dL Phosphorus Level 3.1mg/dL Magnesium Level 1.7mg/dL Albumin 1.4g/dL Test 09/12/16 07:26 Glucose (Fingerstick) 71mg/dL PE: Asks me to leave her alone and not to touch her. A/P: Anemia, dark stools -Hgb 5s, refusing transfusion -consent for EGD/colon from yesterday, now pt declining all care and refusing scopes -- EGD and colonoscopy cancelled today. Per RN, possible transfer to ICU. JORGE YANG Sep 12, 2016 13:59
[2016-09-12] MEDS ORDERED: HALOPERIDOL LACT 5 MG/ML VIAL. IM PRN (14:15)
[2016-09-12] MEDS ORDERED: HALOPERIDOL LACT 5 MG/ML VIAL. IVP PRN (14:15)
[2016-09-12] MEDS ORDERED: LORAZEPAM 2 MG/ML VIAL IV PRN ×2 (14:15)
[2016-09-12] MEDS ORDERED: LORAZEPAM 2 MG/ML VIAL IM PRN (14:30)
[2016-09-12 15:49] LABS: RED BLOOD COUNT 2.16 x10^6/uL (3.50-5.40); RED CELL DISTRIBUTION WIDTH 16.5 % (11.5-14.5); WHITE BLOOD COUNT 10.4 x10^3/uL (4.0-11.0)
[2016-09-12 15:54] LABS: HEMOGLOBIN 5.8 g/dL (12.0-15.5)
[2016-09-12 15:55] LABS: HEMATOCRIT 18.1 % (36.0-47.0)
[2016-09-12 16:00] VITALS: BP 125/76
[2016-09-12 17:00] VITALS: BP 114/82
[2016-09-12 18:00] VITALS: BP 104/78
[2016-09-12] MEDS: NORTRIPTYLINE 25 MG CAPSULE PO SCH (21:00)
[2016-09-12 23:59] VITALS: BP 175/72
[2016-09-13] VITALS (16 sets, daily range): BP systolic 114–168; BP diastolic 63–97
[2016-09-13] MEDS: LABETALOL 20 MG/4 ML DISP.SYRIN. IVP PRN (00:17)
[2016-09-13] MEDS: PANTOPRAZOLE SODIUM IV 80 MG in IV NORMAL SALINE 100ML 100 ML IV SCH ×2 (03:34→07:51)
[2016-09-13] MEDS: ONDANSETRON ODT 4 MG TAB.RAPDIS PO SCH ×3 (06:00→20:09)
[2016-09-13 06:53] LABS: HEMOGLOBIN 5.5 g/dL (12.0-15.5)
[2016-09-13 06:54] LABS: HEMATOCRIT 17.1 % (36.0-47.0)
[2016-09-13 06:56] LABS: INR 1.7 (0.8-1.1); PROTHROMBIN TIME PATIENT 19.1 SEC (11.7-14.0)
[2016-09-13 07:02] LABS: ALBUMIN 1.5 g/dL (3.4-5.0); CALCIUM 8.2 mg/dL (8.5-10.1); GFR 13.8; POTASSIUM 4.1 mmol/L (3.5-5.1)
[2016-09-13] MEDS ORDERED: PANTOPRAZOLE IV PUSH 40 MG VIAL. IVP SCH (07:30)
[2016-09-13] MEDS: CARVEDILOL 12.5 MG TABLET PO SCH ×2 (08:00→16:22)
[2016-09-13] MEDS: BUDESONIDE 0.5 MG/2 ML NEBU NEB SCH ×2 (08:27→19:34)
[2016-09-13] MEDS: IPRATRPIUM/ALBUTEROL 0.5/2.5MG 3 ML NEBU. NEB SCH ×4 (08:27→19:34)
[2016-09-13] MEDS ORDERED: IV NORMAL SALINE 1000ML BAG 1,000 ML IV PRN (08:39)
[2016-09-13] MEDS ORDERED: DIALYSIS PATIENT. MC PRN ×2 (08:45)
[2016-09-13] MEDS ORDERED: LABETALOL 20 MG/4 ML DISP.SYRIN. IVP PRN (08:45)
[2016-09-13] MEDS ORDERED: 0.9 % SODIUM CHLORIDE 10 ML DISP.SYRIN. IV PRN ×2 (08:45)
[2016-09-13] MEDS ORDERED: DIPHENHYDRAMINE 50 MG/ML VIAL IV PRN ×2 (08:45)
[2016-09-13] MEDS: GABAPENTIN 300 MG CAPSULE. PO SCH (08:55)
[2016-09-13] MEDS: OXYCODONE ER 10 MG TAB.ER.12H. PO SCH ×2 (08:55→20:08)
[2016-09-13] MEDS: SERTRALINE 50 MG TABLET. PO SCH (08:56)
[2016-09-13] MEDS: ALLOPURINOL 100 MG TABLET. PO SCH (08:56)
[2016-09-13] MEDS: LIDOCAINE (700MG/PATCH) PATCH. TP SCH (08:56)
--- NOTE | 2016-09-13 09:16 | PDOC ---
Dialysis Progress Note Dialysis Note Dialysis Note Seen on Hemodialysis, tolerating treatment Okay Vitals on Hemodialysis: 125/84 80 100% on RA General Appearance: Awake: Alert Oriented x 1? Neck: No JVD or JVP Chest: CTA [place] Heart: S1 S2 Abdomen - Soft NTND Extremities - No Edema ESRD: Dialysis as below F 180 NR 3.5 Hrs 2 K 2.5 Ca 140 Na 35 HC03 Qb 350 + Qd 500+ Heparin 0 Units Uf 1.5 Kgs or to dry weight as tolerated Transfuse 2 Units PRCBC's on HD if available in time May give 25-50 gms of 25% Albumin if needed to maintain Hemodynamic stability Treatment plan reviewed and discussed with website/blog editor Vitals Vital Signs Vital Signs Date Time Temp Pulse Resp B/P Pulse Ox O2 Delivery O2 Flow Rate FiO2 09/13/16 09:00 97.5 81 14 125/84 97.5 09/13/16 09:00 98 Room Air 09/12/16 08:00 2.0 Labs Last Labs Laboratory Tests Test 09/11/16 15:49 09/11/16 20:10 09/11/16 21:05 09/12/16 04:16 Glucose (Fingerstick) 74mg/dL (70-99) 49mg/dL (70-99) 86mg/dL (70-99) White Blood Count 8.3x10^3/uL (4.0-11.0) Red Blood Count 2.03x10^6/uL (3.50-5.40) Hemoglobin 5.6g/dL (12.0-15.5) Hematocrit 16.9% (36.0-47.0) Mean Corpuscular Volume 83fL (79-100) Mean Corpuscular Hemoglobin 28pg (25-35) Mean Corpuscular Hemoglobin Concent 33g/dL (31-37) Red Cell Distribution Width 16.0% (11.5-14.5) Platelet Count 180x10^3/uL (140-400) Neutrophils (%) (Auto) 56% (31-73) Lymphocytes (%) (Auto) 31% (24-48) Monocytes (%) (Auto) 11% (0-9) Eosinophils (%) (Auto) 3% (0-3) Basophils (%) (Auto) 1% (0-3) Neutrophils # (Auto) 4.6x10^3uL (1.8-7.7) Lymphocytes # (Auto) 2.5x10^3/uL (1.0-4.8) Monocytes # (Auto) 0.9x10^3/uL (0.0-1.1) Eosinophils # (Auto) 0.2x10^3/uL (0.0-0.7) Basophils # (Auto) 0.0x10^3/uL (0.0-0.2) Prothrombin Time 17.1SEC (11.7-14.0) Prothromb Time International Ratio 1.5 (0.8-1.1) Sodium Level 141mmol/L (136-145) Potassium Level 4.1mmol/L (3.5-5.1) Chloride Level 105mmol/L (98-107) Carbon Dioxide Level 29mmol/L (21-32) Anion Gap 7 (6-14) Blood Urea Nitrogen 23mg/dL (7-20) Creatinine 3.0mg/dL (0.6-1.0) Estimated GFR (Cockcroft-Gault) 19.3 Glucose Level 77mg/dL (70-99) Calcium Level 7.8mg/dL (8.5-10.1) Phosphorus Level 3.1mg/dL (2.6-4.7) Magnesium Level 1.7mg/dL (1.8-2.4) Albumin 1.4g/dL (3.4-5.0) Test 09/12/16 07:26 09/12/16 15:30 09/13/16 06:15 Glucose (Fingerstick) 71mg/dL (70-99) White Blood Count 10.4x10^3/uL (4.0-11.0) Red Blood Count 2.16x10^6/uL (3.50-5.40) Hemoglobin 5.8g/dL (12.0-15.5) 5.5g/dL (12.0-15.5) Hematocrit 18.1% (36.0-47.0) 17.1% (36.0-47.0) Mean Corpuscular Volume 84fL (79-100) Mean Corpuscular Hemoglobin 27pg (25-35) Mean Corpuscular Hemoglobin Concent 32g/dL (31-37) 32g/dL (31-37) Red Cell Distribution Width 16.5% (11.5-14.5) Platelet Count 227x10^3/uL (140-400) Prothrombin Time 19.1SEC (11.7-14.0) Prothromb Time International Ratio 1.7 (0.8-1.1) Sodium Level 141mmol/L (136-145) Potassium Level 4.1mmol/L (3.5-5.1) Chloride Level 105mmol/L (98-107) Carbon Dioxide Level 27mmol/L (21-32) Anion Gap 9 (6-14) Blood Urea Nitrogen 33mg/dL (7-20) Creatinine 4.0mg/dL (0.6-1.0) Estimated GFR (Cockcroft-Gault) 13.8 Glucose Level 79mg/dL (70-99) Calcium Level 8.2mg/dL (8.5-10.1) Phosphorus Level 4.0mg/dL (2.6-4.7) Magnesium Level 2.0mg/dL (1.8-2.4) Albumin 1.5g/dL (3.4-5.0) Laboratory Tests Test 09/12/16 15:30 09/13/16 06:15 White Blood Count 10.4x10^3/uL (4.0-11.0) Red Blood Count 2.16x10^6/uL (3.50-5.40) Hemoglobin 5.8g/dL (12.0-15.5) 5.5g/dL (12.0-15.5) Hematocrit 18.1% (36.0-47.0) 17.1% (36.0-47.0) Mean Corpuscular Volume 84fL (79-100) Mean Corpuscular Hemoglobin 27pg (25-35) Mean Corpuscular Hemoglobin Concent 32g/dL (31-37) 32g/dL (31-37) Red Cell Distribution Width 16.5% (11.5-14.5) Platelet Count 227x10^3/uL (140-400) Prothrombin Time 19.1SEC (11.7-14.0) Prothromb Time International Ratio 1.7 (0.8-1.1) Sodium Level 141mmol/L (136-145) Potassium Level 4.1mmol/L (3.5-5.1) Chloride Level 105mmol/L (98-107) Carbon Dioxide Level 27mmol/L (21-32) Anion Gap 9 (6-14) Blood Urea Nitrogen 33mg/dL (7-20) Creatinine 4.0mg/dL (0.6-1.0) Estimated GFR (Cockcroft-Gault) 13.8 Glucose Level 79mg/dL (70-99) Calcium Level 8.2mg/dL (8.5-10.1) Phosphorus Level 4.0mg/dL (2.6-4.7) Magnesium Level 2.0mg/dL (1.8-2.4) Albumin 1.5g/dL (3.4-5.0) Assessment Assessment Problems Medical Problems: (1) Anemia Status: Acute (2) Coagulopathy Status: Acute (3) Coumadin toxicity Status: Acute (4) Elevated INR (international normalized ratio) due to prior anticoagulant medication ingestion Status: Acute (5) ESRD on dialysis Status: Acute (6) GI bleed Status: Acute Problems: Plan Plan of Care Problems Medical Problems: (1) Anemia Status: Acute (2) Coagulopathy Status: Acute (3) Coumadin toxicity Status: Acute (4) Elevated INR (international normalized ratio) due to prior anticoagulant medication ingestion Status: Acute (5) ESRD on dialysis Status: Acute (6) GI bleed Status: Acute HERMELINDA MCINTYRE MD Sep 13, 2016 09:16
--- NOTE | 2016-09-13 12:00 | PDOC ---
PROGRESS NOTES Chief Complaint Chief Complaint Acute blood loss anemia, GI bleed, ESRD, Coagulopathy, was on Coumadin for afib, HTN Asthma Obesity, back pain, Plan s/p FFP and PRBC hemoglobin, dropping hemoglobi Pt refusing blood transfusion She is refusing EGD and colonoscopy holding Coumadin on Protonix gtt possible EGD today by GI monitor INR GI consult monitor hemoglobin q6hs HD per nephrology Seen in ICU Prognosis guarded notified about her condition, updated provided by care transition manager consult. History of Present Illness History of Present Illness still having bleeding not accepting blood or EGD/colonoscopy alert no acute issues. Vitals Vitals Vital Signs Date Time Temp Pulse Resp B/P Pulse Ox O2 Delivery O2 Flow Rate FiO2 09/13/16 11:00 82 18 120/87 100 Room Air 09/13/16 09:42 97.6 97.6 09/12/16 08:00 2.0 Physical Exam General: Alert, Oriented X3, Cooperative, No acute distress, Other Heart: Normal S1, Normal S2 Lungs: Clear Abdomen: Normal bowel sounds, Soft Extremities: No clubbing, No cyanosis Skin: No rashes Labs LABS Laboratory Tests Test 09/12/16 15:30 09/13/16 06:15 White Blood Count 10.4x10^3/uL (4.0-11.0) Red Blood Count 2.16x10^6/uL (3.50-5.40) Hemoglobin 5.8g/dL (12.0-15.5) 5.5g/dL (12.0-15.5) Hematocrit 18.1% (36.0-47.0) 17.1% (36.0-47.0) Mean Corpuscular Volume 84fL (79-100) Mean Corpuscular Hemoglobin 27pg (25-35) Mean Corpuscular Hemoglobin Concent 32g/dL (31-37) 32g/dL (31-37) Red Cell Distribution Width 16.5% (11.5-14.5) Platelet Count 227x10^3/uL (140-400) Prothrombin Time 19.1SEC (11.7-14.0) Prothromb Time International Ratio 1.7 (0.8-1.1) Sodium Level 141mmol/L (136-145) Potassium Level 4.1mmol/L (3.5-5.1) Chloride Level 105mmol/L (98-107) Carbon Dioxide Level 27mmol/L (21-32) Anion Gap 9 (6-14) Blood Urea Nitrogen 33mg/dL (7-20) Creatinine 4.0mg/dL (0.6-1.0) Estimated GFR (Cockcroft-Gault) 13.8 Glucose Level 79mg/dL (70-99) Calcium Level 8.2mg/dL (8.5-10.1) Phosphorus Level 4.0mg/dL (2.6-4.7) Magnesium Level 2.0mg/dL (1.8-2.4) Albumin 1.5g/dL (3.4-5.0) Assessment and Plan Assessmemt and Plan Problems Medical Problems: (1) Anemia Status: Acute (2) Coagulopathy Status: Acute (3) Coumadin toxicity Status: Acute (4) Elevated INR (international normalized ratio) due to prior anticoagulant medication ingestion Status: Acute (5) ESRD on dialysis Status: Acute (6) GI bleed Status: Acute Problems: Comment Review of Relevant I have reviewed the following items christi (where applicable) has been applied. Labs Laboratory Tests Test 09/11/16 15:49 09/11/16 20:10 09/11/16 21:05 09/12/16 04:16 Glucose (Fingerstick) 74mg/dL (70-99) 49mg/dL (70-99) 86mg/dL (70-99) White Blood Count 8.3x10^3/uL (4.0-11.0) Red Blood Count 2.03x10^6/uL (3.50-5.40) Hemoglobin 5.6g/dL (12.0-15.5) Hematocrit 16.9% (36.0-47.0) Mean Corpuscular Volume 83fL (79-100) Mean Corpuscular Hemoglobin 28pg (25-35) Mean Corpuscular Hemoglobin Concent 33g/dL (31-37) Red Cell Distribution Width 16.0% (11.5-14.5) Platelet Count 180x10^3/uL (140-400) Neutrophils (%) (Auto) 56% (31-73) Lymphocytes (%) (Auto) 31% (24-48) Monocytes (%) (Auto) 11% (0-9) Eosinophils (%) (Auto) 3% (0-3) Basophils (%) (Auto) 1% (0-3) Neutrophils # (Auto) 4.6x10^3uL (1.8-7.7) Lymphocytes # (Auto) 2.5x10^3/uL (1.0-4.8) Monocytes # (Auto) 0.9x10^3/uL (0.0-1.1) Eosinophils # (Auto) 0.2x10^3/uL (0.0-0.7) Basophils # (Auto) 0.0x10^3/uL (0.0-0.2) Prothrombin Time 17.1SEC (11.7-14.0) Prothromb Time International Ratio 1.5 (0.8-1.1) Sodium Level 141mmol/L (136-145) Potassium Level 4.1mmol/L (3.5-5.1) Chloride Level 105mmol/L (98-107) Carbon Dioxide Level 29mmol/L (21-32) Anion Gap 7 (6-14) Blood Urea Nitrogen 23mg/dL (7-20) Creatinine 3.0mg/dL (0.6-1.0) Estimated GFR (Cockcroft-Gault) 19.3 Glucose Level 77mg/dL (70-99) Calcium Level 7.8mg/dL (8.5-10.1) Phosphorus Level 3.1mg/dL (2.6-4.7) Magnesium Level 1.7mg/dL (1.8-2.4) Albumin 1.4g/dL (3.4-5.0) Test 09/12/16 07:26 09/12/16 15:30 09/13/16 06:15 Glucose (Fingerstick) 71mg/dL (70-99) White Blood Count 10.4x10^3/uL (4.0-11.0) Red Blood Count 2.16x10^6/uL (3.50-5.40) Hemoglobin 5.8g/dL (12.0-15.5) 5.5g/dL (12.0-15.5) Hematocrit 18.1% (36.0-47.0) 17.1% (36.0-47.0) Mean Corpuscular Volume 84fL (79-100) Mean Corpuscular Hemoglobin 27pg (25-35) Mean Corpuscular Hemoglobin Concent 32g/dL (31-37) 32g/dL (31-37) Red Cell Distribution Width 16.5% (11.5-14.5) Platelet Count 227x10^3/uL (140-400) Prothrombin Time 19.1SEC (11.7-14.0) Prothromb Time International Ratio 1.7 (0.8-1.1) Sodium Level 141mmol/L (136-145) Potassium Level 4.1mmol/L (3.5-5.1) Chloride Level 105mmol/L (98-107) Carbon Dioxide Level 27mmol/L (21-32) Anion Gap 9 (6-14) Blood Urea Nitrogen 33mg/dL (7-20) Creatinine 4.0mg/dL (0.6-1.0) Estimated GFR (Cockcroft-Gault) 13.8 Glucose Level 79mg/dL (70-99) Calcium Level 8.2mg/dL (8.5-10.1) Phosphorus Level 4.0mg/dL (2.6-4.7) Magnesium Level 2.0mg/dL (1.8-2.4) Albumin 1.5g/dL (3.4-5.0) Laboratory Tests Test 09/12/16 15:30 09/13/16 06:15 White Blood Count 10.4x10^3/uL (4.0-11.0) Red Blood Count 2.16x10^6/uL (3.50-5.40) Hemoglobin 5.8g/dL (12.0-15.5) 5.5g/dL (12.0-15.5) Hematocrit 18.1% (36.0-47.0) 17.1% (36.0-47.0) Mean Corpuscular Volume 84fL (79-100) Mean Corpuscular Hemoglobin 27pg (25-35) Mean Corpuscular Hemoglobin Concent 32g/dL (31-37) 32g/dL (31-37) Red Cell Distribution Width 16.5% (11.5-14.5) Platelet Count 227x10^3/uL (140-400) Prothrombin Time 19.1SEC (11.7-14.0) Prothromb Time International Ratio 1.7 (0.8-1.1) Sodium Level 141mmol/L (136-145) Potassium Level 4.1mmol/L (3.5-5.1) Chloride Level 105mmol/L (98-107) Carbon Dioxide Level 27mmol/L (21-32) Anion Gap 9 (6-14) Blood Urea Nitrogen 33mg/dL (7-20) Creatinine 4.0mg/dL (0.6-1.0) Estimated GFR (Cockcroft-Gault) 13.8 Glucose Level 79mg/dL (70-99) Calcium Level 8.2mg/dL (8.5-10.1) Phosphorus Level 4.0mg/dL (2.6-4.7) Magnesium Level 2.0mg/dL (1.8-2.4) Albumin 1.5g/dL (3.4-5.0) Medications Current Medications Oxycodone/ Acetaminophen (Percocet 5/325) 1 tab 1X ONCE PO ; Start 09/09/16 at 19:00; Stop 09/09/16 at 19:01; Status DC Hydromorphone HCl 1 mg 1 mg 1X ONCE IV Last administered on 09/09/16 19:21; Start 09/09/16 at 19:15; Stop 09/09/16 at 19:16; Status DC Pantoprazole Sodium/Sodium Chloride (Protonix Iv/Iv Sodium Chloride 0.9% 100ml) 100 ml @ 10 mls/hr 1X ONCE IV Last administered on 09/09/16 19:51; Start at 19:30; Stop 09/10/16 at 05:29; Status DC Ondansetron HCl 4 mg 4 mg PRN Q8HRS PRN IV NAUSEA/VOMITING Last administered on 09/09/16 19:51; Start 09/09/16 at 19:30; Stop 09/10/16 at 19:29; Status DC Sodium Chloride (Iv Sodium Chloride 0.9% 1000ml Bag) 1,000 ml @ 100 mls/hr Q10H IV Last administered on 09/09/16 19:51; Start 09/09/16 at 19:30; Stop at 06:00; Status DC Acetaminophen (Tylenol) 650 mg PRN Q4HRS PRN PO FEVER Last administered on 09/09 19:52; Start 09/09/16 at 19:30; Stop 09/10/16 at 19:29; Status DC Multi-Ingredient Mouthwash/Gargle 15 ml 15 ml 1X ONCE SWSW Last administered on 09/09/16 23:41; Start 09/09/16 at 23:30; Stop 09/09/16 at 23:31; Status DC Phytonadione/ Sodium Chloride (Vitamin K/Iv Sodium Chloride 0.9% 50ml) 51 ml @ 102 mls/hr 1X ONCE IV Last administered on 09/10/16 02:07; Start 09/10/16 at 00:00; Stop 09/10/16 at 00:29; Status DC Acetaminophen (Tylenol) 325 mg PRN Q4HRS PO ; Start 09/09/16 at 23:30; Stop at 23:30; Status DC Allopurinol (Zyloprim) 100 mg DAILY PO Last administered on 09/11/16 14:58; Start 09/10/16 at 09:00 Bisacodyl (Dulcolax Supp) 10 mg PRN DAILY PRN RC CONSTIPATION; Start 09/09/16 at 23:30 Cyclobenzaprine HCl (Flexeril) 10 mg PRN TID PRN PO back pain Last administered on 09/10/16 21:09; Start 09/09/16 at 23:30 Gabapentin (Neurontin) 300 mg DAILY PO Last administered on 09/11/16 14:57; Start 09/10/16 at 09:00 Ipratropium Ringle (Atrovent) 0.2 mg QID NEB ; Start 09/10/16 at 09:00; Status UNV Lidocaine (Lidoderm) 1 patch DAILY TP Last administered on 09/11/16 15:00; Start 09/10/16 at 09:00 Nortriptyline HCl (Pamelor) 25 mg QHS PO Last administered on 09/11/16 20:12; Start 09/10/16 at 21:00 Oxycodone HCl (Oxycontin) 10 mg BID PO Last administered on 09/11/16 20:12; Start 09/10/16 at 09:00 Oxycodone/ Acetaminophen (Percocet 10/325) 1 tab PRN Q4HRS PRN PO SEVERE PAIN Last administered on 09/10/16 22:38; Start 09/09/16 at 23:30 Non-Formulary Medication 2 puff Q4HRS INH FOR ASTHMA; Start 09/10/16 at 00:00; Status UNV Carvedilol (Coreg) 25 mg BIDWMEALS PO Last administered on 09/11/16 17:14; Start 09/10/16 at 08:00 Non-Formulary Medication 1 puff BID IH ; Start 09/10/16 at 09:00; Status UNV Ondansetron HCl (Zofran Odt) 8 mg Q8HRS PO Last administered on 09/11/16 20:12 ; Start 09/10/16 at 06:00 Sertraline HCl (Zoloft) 100 mg DAILY PO Last administered on 09/11/16 14:58; Start 09/10/16 at 09:00 Labetalol HCl (Normodyne) 20 mg PRN Q2HR PRN IVP HYPERTENSION, SEE COMMENTS Last administered on 09/13/16 00:17; Start 09/09/16 at 23:30 Albuterol/ Ipratropium (Duoneb) 3 ml RTQID NEB Last administered on 09/13/16 08:27; Start 09/10/16 at 08:00 Budesonide (Pulmicort) 0.5 mg RTBID NEB Last administered on 09/13/16 08:27; Start 09/10/16 at 08:00 Albuterol Sulfate 2.5 mg 2.5 mg PRN Q4HRS PRN NEB SHORTNESS OF BREATH; Start at 23:30 Pantoprazole Sodium 80 mg/ Sodium Chloride 100 ml @ 10 mls/hr Q10H IV Last administered on 09/13/16 07:51; Start 09/10/16 at 10:00; Stop 09/13/16 at 09:59 ; Status DC Magnesium Sulfate/ Dextrose 50 ml @ 25 mls/hr PRN DAILY PRN IV for Mag < 1.7 on am labs; Start 09/10/16 at 10:00 Sodium Chloride (Iv Sodium Chloride 0.9% 1000ml Bag) 1,000 ml @ 1,000 mls/hr Q1H PRN IV hypotension; Start 09/11/16 at 08:50; Stop 09/11/16 at 14:49; Status DC Diphenhydramine HCl (Benadryl) 25 mg 1X PRN PRN IV ITCHING; Start 09/11/16 at 09:00; Stop 09/12/16 at 08:59; Status DC Diphenhydramine HCl (Benadryl) 25 mg 1X PRN PRN IV ITCHING; Start 09/11/16 at 09:00; Stop 09/12/16 at 08:59; Status DC Sodium Chloride (Normal Saline Flush) 10 ml 1X PRN PRN IV AP catheter pack; Start 09/11/16 at 09:00; Stop 09/12/16 at 08:59; Status DC Sodium Chloride (Normal Saline Flush) 10 ml 1X PRN PRN IV FOREST PATHOLOGIST catheter pack; Start 09/11/16 at 09:00; Stop 09/12/16 at 08:59; Status DC Labetalol HCl 10 mg 10 mg PRN Q1HR PRN IVP SBP > 180; Start 09/11/16 at 09:00; Stop 09/12/16 at 08:59; Status DC Sodium Chloride (Iv Sodium Chloride 0.9% 1000ml Bag) 1,000 ml @ 400 mls/hr Q2H30M PRN IV PATENCY; Start 09/11/16 at 08:50; Stop 09/11/16 at 20:49; Status DC Info (PHARMACY MONITORING -- do not chart) 1 each PRN DAILY PRN MC SEE COMMENTS ; Start 09/11/16 at 09:00 Info (PHARMACY MONITORING -- do not chart) 1 each PRN DAILY PRN MC SEE COMMENTS ; Start 09/11/16 at 09:00; Status UNV Sodium Cl/Sod Bicarb/Potass Cl/ PEG (Golytely) 4,000 ml 1X ONCE PO Last administered on 09/11/16t 17:13; Start 09/11/16 at 13:00; Stop 09/11/16 at 13:01 ; Status DC Fentanyl Citrate (Fentanyl 2ml Vial) 25 mcg PRN Q5MIN PRN IV MILD PAIN; Start 09/12/16 at 07:00; Stop 09/13/16 at 06:59; Status DC Fentanyl Citrate 50 mcg 50 mcg PRN Q5MIN PRN IV MODERATE PAIN; Start 09/12/16 at 07:00; Stop 09/13/16 at 06:59; Status DC Lactated Ringer's (Iv Lactated Ringers) 1,000 ml @ 0 mls/hr Q0M IV ; Start at 07:00; Stop 09/12/16 at 18:59; Status DC Lidocaine HCl 2 ml 1X PRN PRN ID IV START; Start 09/12/16 at 07:00; Stop at 06:59; Status DC Prochlorperazine Edisylate (Compazine) 5 mg PACU PRN PRN IV NAUSEA; Start 09/12 at 07:00; Stop 09/13/16 at 06:59; Status DC Pantoprazole Sodium 40 mg 40 mg DAILYAC IVP ; Start 09/13/16 at 07:30; Status UNV Magnesium Sulfate/ Dextrose 50 ml @ 25 mls/hr 1X ONCE IV ; Start 09/12/16 at 11 :30; Stop 09/12/16 at 13:29; Status DC Propofol 20 ml @ As Directed STK-MED ONCE IV ; Start 09/12/16 at 12:55; Stop at 12:56; Status DC Propofol (Diprivan) 20 ml @ As Directed STK-MED ONCE IV ; Start 09/12/16 at 12: 55; Stop 09/12/16 at 12:56; Status DC Lidocaine HCl (Lidocaine Pf 2% Vial) 5 ml STK-MED ONCE .ROUTE ; Start 09/12/16 at 12:55; Stop 09/12/16 at 12:56; Status DC Lorazepam (Ativan) 2 mg PRN Q4HRS PRN IV ANXIETY / AGITATION; Start 09/12/16 at 14:15 Lorazepam (Ativan) 2 mg Q4HRS PRN IV ANXIETY / AGITATION; Start 09/12/16 at 14: 15; Status UNV Haloperidol Lactate (Haldol) 2.5 mg PRN Q6HRS PRN IM AGITATION; Start 09/12/16 at 14:15 Haloperidol Lactate (Haldol) 2.5 mg PRN Q6HRS PRN IVP AGITATION; Start at 14:15 Lorazepam 2 mg 2 mg PRN Q4HRS PRN IM ANXIETY / AGITATION; Start 09/12/16 at 14: 30 Sodium Chloride (Iv Sodium Chloride 0.9% 1000ml Bag) 1,000 ml @ 1,000 mls/hr Q1H PRN IV hypotension; Start 09/13/16 at 08:39; Stop 09/13/16 at 14:38 Diphenhydramine HCl (Benadryl) 25 mg 1X PRN PRN IV ITCHING; Start 09/13/16 at 08:45; Stop 09/14/16 at 08:44 Diphenhydramine HCl (Benadryl) 25 mg 1X PRN PRN IV ITCHING; Start 09/13/16 at 08:45; Stop 09/14/16 at 08:44 Sodium Chloride (Normal Saline Flush) 10 ml 1X PRN PRN IV AP catheter pack; Start 09/13/16 at 08:45; Stop 09/14/16 at 08:44 Sodium Chloride (Normal Saline Flush) 10 ml 1X PRN PRN IV FOREST PATHOLOGIST catheter pack; Start 09/13/16 at 08:45; Stop 09/14/16 at 08:44 Labetalol HCl (Normodyne) 10 mg PRN Q1HR PRN IVP SBP > 180; Start 09/13/16 at 08:45; Stop 09/14/16 at 08:44 Info (PHARMACY MONITORING -- do not chart) 1 each PRN DAILY PRN MC SEE COMMENTS ; Start 09/13/16 at 08:45; Status UNV Info (PHARMACY MONITORING -- do not chart) 1 each PRN DAILY PRN MC SEE COMMENTS ; Start 09/13/16 at 08:45; Status UNV Active Scripts Active Reported [Mylanta] Tylenol (Acetaminophen) 325 Mg Tablet 1 Tab PO PRN Q4HRS Fleet Enema (Na Phos,M-B/Na Phos,Di-Ba) 133 Ml Enema 1 Each RC ONCE Dulcolax (Bisacodyl) 10 Mg Supp.rect 10 Mg RC PRN DAILY PRN Zofran Odt (Ondansetron) 8 Mg Tab.rapdis 1 Tab PO Q8HRS Nitrostat (Nitroglycerin) 0.4 Mg Tab.subl 1 Tab SL UD Cyclobenzaprine Hcl 10 Mg Tablet 1 Tab PO TID Zepatier 50-100 mg Tablet (Elbasvir/Grazoprevir) 1 Each Tablet 1 Each PO [PhosLo] Coreg (Carvedilol) 25 Mg Tablet 1 Tab PO BID Aspirin 81 Mg Tab.chew 1 Tab PO DAILY Allopurinol 100 Mg Tablet 1 Tab PO DAILY Ventolin Hfa Inhaler (Albuterol Sulfate) 18 Gm Hfa.aer.ad 2 Puff INH Q4HRS Nephplex Rx Tablet (Vit B Cmplx No3/Fa/C/Biot/Zinc) 1 Each Tablet 1 Each PO Senokot (Sennosides) 8.6 Mg Tablet 1 Tab PO BID Oxycontin (Oxycodone HCl) 10 Mg Tab.er.12h 10 Mg PO BID Glycolax (Polyethylene Glycol 3350) 119 Gm Powder 17 Gm PO UD Percocet 10-325 Mg Tablet (Oxycodone/Acetaminophen) 1 Each Tablet 1 Tab PO Q4- 6HRS Vitamin D3 (Cholecalciferol (Vitamin D3)) 1,000 Unit Tablet 1 Tab PO DAILY Advair 250-50 Diskus (Fluticasone/Salmeterol) 1 Each Disk.w.dev 1 Puff IH BID Ipratropium Ringle 0.2 Mg/1 Ml Solution 1 Vial NEB QID Lidoderm (Lidocaine) 700 Mg Adh..patch 1 Patch TP DAILY Nortriptyline Hcl 25 Mg Capsule 1 Cap PO QHS Ciprofloxacin Hcl 250 Mg Tablet 1 Tab PO BID Warfarin Sodium 2 Mg Tablet 1.5 Mg PO DAILY Gabapentin 300 Mg Capsule 300 Mg PO TID Zoloft (Sertraline Hcl) 100 Mg Tablet 1 Tab PO DAILY Vitals/I & O Vital Sign - Last 24 Hours 09/12/16 09/12/16 09/12/16 09/12/16 16:00 16:00 17:00 18:00 Temp 98.6 98.6 98.6 98.6 98.6 98.6 Pulse 88 88 88 Resp 18 18 18 B/P 125/76 114/82 104/78 Pulse Ox 91 91 91 O2 Delivery Room Air Room Air Room Air Room Air 09/12/16 09/12/16 09/12/16 09/13/16 20:00 23:59 23:59 00:17 Temp 97.7 97.7 Pulse 80 80 Resp 20 B/P 175/72 175/72 Pulse Ox 98 O2 Delivery Room Air Room Air Room Air 2/09/13/16 09/13/16 09/13/16 00:30 01:00 02:00 03:00 Pulse 71 76 76 75 Resp 18 20 22 B/P 168/81 133/81 124/77 122/78 Pulse Ox 97 99 95 97 O2 Delivery Room Air Room Air Room Air Room Air 09/13/16 09/13/16 09/13/16 09/13/16 04:00 04:00 05:00 06:00 Temp 97.7 97.7 Pulse 79 74 76 Resp 18 B/P 127/63 114/74 127/82 Pulse Ox 99 97 97 O2 Delivery Room Air Room Air Room Air Room Air 09/13/16 09/13/16 09/13/16 09/13/16 07:00 08:00 08:00 08:31 Temp 97.8 97.8 Pulse 75 81 Resp 17 B/P 118/69 127/84 Pulse Ox 97 98 98 O2 Delivery Room Air Room Air Room Air Room Air 09/13/16 09/13/16 09/13/16 09/13/16 08:44 09:00 09:00 09:42 Temp 97.6 97.5 97.6 97.6 97.5 97.6 Pulse 80 81 81 80 Resp 23 22 14 11 B/P 138/97 125/84 125/84 127/93 Pulse Ox 98 O2 Delivery Room Air 09/13/16 09/13/16 10:00 11:00 Pulse 80 82 Resp 33 18 B/P 123/73 120/87 Pulse Ox 100 100 O2 Delivery Room Air Room Air Intake and Output 09/12/16 09/12/16 09/13/16 15:00 23:00 07:00 Intake Total 0 ml 120 ml Balance 0 ml 120 ml KURT LUND MD Sep 13, 2016 12:00
--- NOTE | 2016-09-13 12:18 | PDOC ---
Subjective: Subjective: No history from pt. Objective: Objective: Per RN - had dialysis and transfusions this morning, just refused BP check. Dark stool last night. Vital Signs: Vital Signs Date Time Temp Pulse Resp B/P Pulse Ox O2 Delivery O2 Flow Rate FiO2 09/13/16 12:00 Room Air 09/13/16 11:00 82 18 120/87 100 09/13/16 09:42 97.6 97.6 09/12/16 08:00 2.0 Labs: Laboratory Tests Test 09/12/16 15:30 09/13/16 06:15 White Blood Count 10.4x10^3/uL Red Blood Count 2.16x10^6/uL Hemoglobin 5.8g/dL 5.5g/dL Hematocrit 18.1% 17.1% Mean Corpuscular Volume 84fL Mean Corpuscular Hemoglobin 27pg Mean Corpuscular Hemoglobin Concent 32g/dL 32g/dL Red Cell Distribution Width 16.5% Platelet Count 227x10^3/uL Prothrombin Time 19.1SEC Prothromb Time International Ratio 1.7 Sodium Level 141mmol/L Potassium Level 4.1mmol/L Chloride Level 105mmol/L Carbon Dioxide Level 27mmol/L Anion Gap 9 Blood Urea Nitrogen 33mg/dL Creatinine 4.0mg/dL Estimated GFR (Cockcroft-Gault) 13.8 Glucose Level 79mg/dL Calcium Level 8.2mg/dL Phosphorus Level 4.0mg/dL Magnesium Level 2.0mg/dL Albumin 1.5g/dL PE: GEN: NAD NEURO/PSYCH: alert A/P: Anemia, dark stools -Hgb still 5s, was transfused this morning -declined EGD/colonoscopy 09/12 -- Will follow, restart PPI. JORGE YANG Sep 13, 2016 12:17
[2016-09-13] MEDS: PANTOPRAZOLE IV PUSH 40 MG VIAL. IVP SCH (13:12)
[2016-09-13 18:40] LABS: BASO # 0.1 x10^3/uL (0.0-0.2); BASO % 1 % (0-3); EOS % 2 % (0-3); HEMATOCRIT 24.9 % (36.0-47.0); HEMOGLOBIN 8.3 g/dL (12.0-15.5); LYMPH % 21 % (24-48); MEAN CORPUSCULAR HEMOGLOBIN 28 pg (25-35); MEAN CORPUSCULAR HGB CONC 33 g/dL (31-37); MEAN CORPUSCULAR VOLUME 84 fL (79-100); MONO % 10 % (0-9); NEUT % 67 % (31-73); PLATELET COUNT 234 x10^3/uL (140-400); RED BLOOD COUNT 2.98 x10^6/uL (3.50-5.40); RED CELL DISTRIBUTION WIDTH 15.6 % (11.5-14.5); WHITE BLOOD COUNT 9.8 x10^3/uL (4.0-11.0)
[2016-09-13] MEDS: NORTRIPTYLINE 25 MG CAPSULE PO SCH (20:08)
[2016-09-14 03:31] VITALS: BP 116/83
[2016-09-14] MEDS: ONDANSETRON ODT 4 MG TAB.RAPDIS PO SCH ×2 (05:30→14:00)
[2016-09-14 06:11] LABS: INR 1.8 (0.8-1.1); PROTHROMBIN TIME PATIENT 19.5 SEC (11.7-14.0)
[2016-09-14 06:12] LABS: ALBUMIN 1.5 g/dL (3.4-5.0); CALCIUM 7.9 mg/dL (8.5-10.1); CREATININE 2.7 mg/dL (0.6-1.0); GFR 21.8; PHOSPHORUS 2.9 mg/dL (2.6-4.7); POTASSIUM 3.4 mmol/L (3.5-5.1)
[2016-09-14] MEDS: ALLOPURINOL 100 MG TABLET. PO SCH (08:06)
[2016-09-14] MEDS: CARVEDILOL 12.5 MG TABLET PO SCH ×2 (08:06→18:19)
[2016-09-14] MEDS: OXYCODONE ER 10 MG TAB.ER.12H. PO SCH ×2 (08:07→19:47)
[2016-09-14] MEDS: SERTRALINE 50 MG TABLET. PO SCH (08:07)
[2016-09-14] MEDS: GABAPENTIN 300 MG CAPSULE. PO SCH (08:07)
[2016-09-14] MEDS: PANTOPRAZOLE IV PUSH 40 MG VIAL. IVP SCH (08:07)
[2016-09-14] MEDS: LIDOCAINE (700MG/PATCH) PATCH. TP SCH (08:09)
[2016-09-14] MEDS: BUDESONIDE 0.5 MG/2 ML NEBU NEB SCH ×2 (08:36→20:08)
[2016-09-14] MEDS: IPRATRPIUM/ALBUTEROL 0.5/2.5MG 3 ML NEBU. NEB SCH ×4 (08:36→20:06)
[2016-09-14 08:57] VITALS: BP 134/88
--- NOTE | 2016-09-14 10:49 | PDOC ---
PROGRESS NOTES Chief Complaint Chief Complaint Acute blood loss anemia, GI bleed, ESRD, Coagulopathy, was on Coumadin for afib, HTN Asthma Obesity, back pain, History of Present Illness History of Present Illness Resting with NAD Reviewed labs Still having bleeding Not accepting blood or EGD/colonoscopy Vitals Vitals Vital Signs Date Time Temp Pulse Resp B/P Pulse Ox O2 Delivery O2 Flow Rate FiO2 09/14/16 08:57 97.6 82 22 134/88 97 Room Air 97.6 Physical Exam General: Cooperative, Other (Resting with NAD. Awakens) Heart: Normal S1, Normal S2 Lungs: Clear Abdomen: Normal bowel sounds, Soft Extremities: No clubbing, No cyanosis Skin: No rashes Labs LABS Laboratory Tests Test 09/13/16 18:00 09/14/16 05:00 09/14/16 08:14 White Blood Count 9.8x10^3/uL (4.0-11.0) Red Blood Count 2.98x10^6/uL (3.50-5.40) Hemoglobin 8.3g/dL (12.0-15.5) Hematocrit 24.9% (36.0-47.0) Mean Corpuscular Volume 84fL (79-100) Mean Corpuscular Hemoglobin 28pg (25-35) Mean Corpuscular Hemoglobin Concent 33g/dL (31-37) Red Cell Distribution Width 15.6% (11.5-14.5) Platelet Count 234x10^3/uL (140-400) Neutrophils (%) (Auto) 67% (31-73) Lymphocytes (%) (Auto) 21% (24-48) Monocytes (%) (Auto) 10% (0-9) Eosinophils (%) (Auto) 2% (0-3) Basophils (%) (Auto) 1% (0-3) Neutrophils # (Auto) 6.6x10^3uL (1.8-7.7) Lymphocytes # (Auto) 2.0x10^3/uL (1.0-4.8) Monocytes # (Auto) 0.9x10^3/uL (0.0-1.1) Eosinophils # (Auto) 0.2x10^3/uL (0.0-0.7) Basophils # (Auto) 0.1x10^3/uL (0.0-0.2) Ammonia 16mcmol/L (11-34) Prothrombin Time 19.5SEC (11.7-14.0) Prothromb Time International Ratio 1.8 (0.8-1.1) Sodium Level 138mmol/L (136-145) Potassium Level 3.4mmol/L (3.5-5.1) Chloride Level 101mmol/L (98-107) Carbon Dioxide Level 29mmol/L (21-32) Anion Gap 8 (6-14) Blood Urea Nitrogen 14mg/dL (7-20) Creatinine 2.7mg/dL (0.6-1.0) Estimated GFR (Cockcroft-Gault) 21.8 Glucose Level 74mg/dL (70-99) Calcium Level 7.9mg/dL (8.5-10.1) Phosphorus Level 2.9mg/dL (2.6-4.7) Magnesium Level 1.6mg/dL (1.8-2.4) Albumin 1.5g/dL (3.4-5.0) Glucose (Fingerstick) 72mg/dL (70-99) Review of Systems Review of Systems co weakness co hunger Assessment and Plan Assessmemt and Plan Problems Medical Problems: (1) Anemia Status: Acute (2) Coagulopathy Status: Acute (3) Coumadin toxicity Status: Acute (4) Elevated INR (international normalized ratio) due to prior anticoagulant medication ingestion Status: Acute (5) ESRD on dialysis Status: Acute (6) GI bleed Status: Acute Acute blood loss anemia, GI bleed, ESRD, Coagulopathy, was on Coumadin for afib, HTN Asthma Obesity, back pain, Plan s/p FFP and PRBC hemoglobin, dropping hemoglobi Pt refusing blood transfusion She is refusing EGD and colonoscopy holding Coumadin on Protonix gtt possible EGD today by GI monitor INR GI consult monitor hemoglobin q6hs HD per nephrology Seen in ICU Prognosis guarded Problems: Comment Review of Relevant I have reviewed the following items christi (where applicable) has been applied. Labs Laboratory Tests Test 09/12/16 15:30 09/13/16 06:15 09/13/16 18:00 09/14/16 05:00 White Blood Count 10.4x10^3/uL (4.0-11.0) 9.8x10^3/uL (4.0-11.0) Red Blood Count 2.16x10^6/uL (3.50-5.40) 2.98x10^6/uL (3.50-5.40) Hemoglobin 5.8g/dL (12.0-15.5) 5.5g/dL (12.0-15.5) 8.3g/dL (12.0-15.5) Hematocrit 18.1% (36.0-47.0) 17.1% (36.0-47.0) 24.9% (36.0-47.0) Mean Corpuscular Volume 84fL (79-100) 84fL (79-100) Mean Corpuscular Hemoglobin 27pg (25-35) 28pg (25-35) Mean Corpuscular Hemoglobin Concent 32g/dL (31-37) 32g/dL (31-37) 33g/dL (31-37) Red Cell Distribution Width 16.5% (11.5-14.5) 15.6% (11.5-14.5) Platelet Count 227x10^3/uL (140-400) 234x10^3/uL (140-400) Prothrombin Time 19.1SEC (11.7-14.0) 19.5SEC (11.7-14.0) Prothromb Time International Ratio 1.7 (0.8-1.1) 1.8 (0.8-1.1) Sodium Level 141mmol/L (136-145) 138mmol/L (136-145) Potassium Level 4.1mmol/L (3.5-5.1) 3.4mmol/L (3.5-5.1) Chloride Level 105mmol/L (98-107) 101mmol/L (98-107) Carbon Dioxide Level 27mmol/L (21-32) 29mmol/L (21-32) Anion Gap 9 (6-14) 8 (6-14) Blood Urea Nitrogen 33mg/dL (7-20) 14mg/dL (7-20) Creatinine 4.0mg/dL (0.6-1.0) 2.7mg/dL (0.6-1.0) Estimated GFR (Cockcroft-Gault) 13.8 21.8 Glucose Level 79mg/dL (70-99) 74mg/dL (70-99) Calcium Level 8.2mg/dL (8.5-10.1) 7.9mg/dL (8.5-10.1) Phosphorus Level 4.0mg/dL (2.6-4.7) 2.9mg/dL (2.6-4.7) Magnesium Level 2.0mg/dL (1.8-2.4) 1.6mg/dL (1.8-2.4) Albumin 1.5g/dL (3.4-5.0) 1.5g/dL (3.4-5.0) Neutrophils (%) (Auto) 67% (31-73) Lymphocytes (%) (Auto) 21% (24-48) Monocytes (%) (Auto) 10% (0-9) Eosinophils (%) (Auto) 2% (0-3) Basophils (%) (Auto) 1% (0-3) Neutrophils # (Auto) 6.6x10^3uL (1.8-7.7) Lymphocytes # (Auto) 2.0x10^3/uL (1.0-4.8) Monocytes # (Auto) 0.9x10^3/uL (0.0-1.1) Eosinophils # (Auto) 0.2x10^3/uL (0.0-0.7) Basophils # (Auto) 0.1x10^3/uL (0.0-0.2) Ammonia 16mcmol/L (11-34) Test 09/14/16 08:14 Glucose (Fingerstick) 72mg/dL (70-99) Laboratory Tests Test 09/13/16 18:00 09/14/16 05:00 09/14/16 08:14 White Blood Count 9.8x10^3/uL (4.0-11.0) Red Blood Count 2.98x10^6/uL (3.50-5.40) Hemoglobin 8.3g/dL (12.0-15.5) Hematocrit 24.9% (36.0-47.0) Mean Corpuscular Volume 84fL (79-100) Mean Corpuscular Hemoglobin 28pg (25-35) Mean Corpuscular Hemoglobin Concent 33g/dL (31-37) Red Cell Distribution Width 15.6% (11.5-14.5) Platelet Count 234x10^3/uL (140-400) Neutrophils (%) (Auto) 67% (31-73) Lymphocytes (%) (Auto) 21% (24-48) Monocytes (%) (Auto) 10% (0-9) Eosinophils (%) (Auto) 2% (0-3) Basophils (%) (Auto) 1% (0-3) Neutrophils # (Auto) 6.6x10^3uL (1.8-7.7) Lymphocytes # (Auto) 2.0x10^3/uL (1.0-4.8) Monocytes # (Auto) 0.9x10^3/uL (0.0-1.1) Eosinophils # (Auto) 0.2x10^3/uL (0.0-0.7) Basophils # (Auto) 0.1x10^3/uL (0.0-0.2) Ammonia 16mcmol/L (11-34) Prothrombin Time 19.5SEC (11.7-14.0) Prothromb Time International Ratio 1.8 (0.8-1.1) Sodium Level 138mmol/L (136-145) Potassium Level 3.4mmol/L (3.5-5.1) Chloride Level 101mmol/L (98-107) Carbon Dioxide Level 29mmol/L (21-32) Anion Gap 8 (6-14) Blood Urea Nitrogen 14mg/dL (7-20) Creatinine 2.7mg/dL (0.6-1.0) Estimated GFR (Cockcroft-Gault) 21.8 Glucose Level 74mg/dL (70-99) Calcium Level 7.9mg/dL (8.5-10.1) Phosphorus Level 2.9mg/dL (2.6-4.7) Magnesium Level 1.6mg/dL (1.8-2.4) Albumin 1.5g/dL (3.4-5.0) Glucose (Fingerstick) 72mg/dL (70-99) Medications Current Medications Oxycodone/ Acetaminophen (Percocet 5/325) 1 tab 1X ONCE PO ; Start 09/09/16 at 19:00; Stop 09/09/16 at 19:01; Status DC Hydromorphone HCl 1 mg 1 mg 1X ONCE IV Last administered on 09/09/16 19:21; Start 09/09/16 at 19:15; Stop 09/09/16 at 19:16; Status DC Pantoprazole Sodium/Sodium Chloride (Protonix Iv/Iv Sodium Chloride 0.9% 100ml) 100 ml @ 10 mls/hr 1X ONCE IV Last administered on 09/09/16 19:51; Start at 19:30; Stop 09/10/16 at 05:29; Status DC Ondansetron HCl 4 mg 4 mg PRN Q8HRS PRN IV NAUSEA/VOMITING Last administered on 09/09/16 19:51; Start 09/09/16 at 19:30; Stop 09/10/16 at 19:29; Status DC Sodium Chloride (Iv Sodium Chloride 0.9% 1000ml Bag) 1,000 ml @ 100 mls/hr Q10H IV Last administered on 09/09/16 19:51; Start 09/09/16 at 19:30; Stop at 06:00; Status DC Acetaminophen (Tylenol) 650 mg PRN Q4HRS PRN PO FEVER Last administered on 09/09 19:52; Start 09/09/16 at 19:30; Stop 09/10/16 at 19:29; Status DC Multi-Ingredient Mouthwash/Gargle 15 ml 15 ml 1X ONCE SWSW Last administered on 09/09/16 23:41; Start 09/09/16 at 23:30; Stop 09/09/16 at 23:31; Status DC Phytonadione/ Sodium Chloride (Vitamin K/Iv Sodium Chloride 0.9% 50ml) 51 ml @ 102 mls/hr 1X ONCE IV Last administered on 09/10/16 02:07; Start 09/10/16 at 00:00; Stop 09/10/16 at 00:29; Status DC Acetaminophen (Tylenol) 325 mg PRN Q4HRS PO ; Start 09/09/16 at 23:30; Stop at 23:30; Status DC Allopurinol (Zyloprim) 100 mg DAILY PO Last administered on 09/14/16 08:06; Start 09/10/16 at 09:00 Bisacodyl (Dulcolax Supp) 10 mg PRN DAILY PRN RC CONSTIPATION; Start 09/09/16 at 23:30 Cyclobenzaprine HCl (Flexeril) 10 mg PRN TID PRN PO back pain Last administered on 09/10/16 21:09; Start 09/09/16 at 23:30 Gabapentin (Neurontin) 300 mg DAILY PO Last administered on 09/11/16 14:57; Start 09/10/16 at 09:00 Ipratropium Effort (Atrovent) 0.2 mg QID NEB ; Start 09/10/16 at 09:00; Status UNV Lidocaine (Lidoderm) 1 patch DAILY TP Last administered on 09/11/16 15:00; Start 09/10/16 at 09:00 Nortriptyline HCl (Pamelor) 25 mg QHS PO Last administered on 09/11/16 20:12; Start 09/10/16 at 21:00 Oxycodone HCl (Oxycontin) 10 mg BID PO Last administered on 09/14/16 08:07; Start 09/10/16 at 09:00 Oxycodone/ Acetaminophen (Percocet 10/325) 1 tab PRN Q4HRS PRN PO SEVERE PAIN Last administered on 09/10/16 22:38; Start 09/09/16 at 23:30 Non-Formulary Medication 2 puff Q4HRS INH FOR ASTHMA; Start 09/10/16 at 00:00; Status UNV Carvedilol (Coreg) 25 mg BIDWMEALS PO Last administered on 09/14/16 08:06; Start 09/10/16 at 08:00 Non-Formulary Medication 1 puff BID IH ; Start 09/10/16 at 09:00; Status UNV Ondansetron HCl (Zofran Odt) 8 mg Q8HRS PO Last administered on 09/11/16 20:12 ; Start 09/10/16 at 06:00 Sertraline HCl (Zoloft) 100 mg DAILY PO Last administered on 09/14/16 08:07; Start 09/10/16 at 09:00 Labetalol HCl (Normodyne) 20 mg PRN Q2HR PRN IVP HYPERTENSION, SEE COMMENTS Last administered on 09/13/16 00:17; Start 09/09/16 at 23:30 Albuterol/ Ipratropium (Duoneb) 3 ml RTQID NEB Last administered on 09/14/16 08:36; Start 09/10/16 at 08:00 Budesonide (Pulmicort) 0.5 mg RTBID NEB Last administered on 09/14/16 08:36; Start 09/10/16 at 08:00 Albuterol Sulfate 2.5 mg 2.5 mg PRN Q4HRS PRN NEB SHORTNESS OF BREATH; Start at 23:30 Pantoprazole Sodium 80 mg/ Sodium Chloride 100 ml @ 10 mls/hr Q10H IV Last administered on 09/13/16 07:51; Start 09/10/16 at 10:00; Stop 09/13/16 at 09:59 ; Status DC Magnesium Sulfate/ Dextrose 50 ml @ 25 mls/hr PRN DAILY PRN IV for Mag < 1.7 on am labs; Start 09/10/16 at 10:00 Sodium Chloride (Iv Sodium Chloride 0.9% 1000ml Bag) 1,000 ml @ 1,000 mls/hr Q1H PRN IV hypotension; Start 09/11/16 at 08:50; Stop 09/11/16 at 14:49; Status DC Diphenhydramine HCl (Benadryl) 25 mg 1X PRN PRN IV ITCHING; Start 09/11/16 at 09:00; Stop 09/12/16 at 08:59; Status DC Diphenhydramine HCl (Benadryl) 25 mg 1X PRN PRN IV ITCHING; Start 09/11/16 at 09:00; Stop 09/12/16 at 08:59; Status DC Sodium Chloride (Normal Saline Flush) 10 ml 1X PRN PRN IV AP catheter pack; Start 09/11/16 at 09:00; Stop 09/12/16 at 08:59; Status DC Sodium Chloride (Normal Saline Flush) 10 ml 1X PRN PRN IV IMPLEMENTATION TECHNICIAN catheter pack; Start 09/11/16 at 09:00; Stop 09/12/16 at 08:59; Status DC Labetalol HCl 10 mg 10 mg PRN Q1HR PRN IVP SBP > 180; Start 09/11/16 at 09:00; Stop 09/12/16 at 08:59; Status DC Sodium Chloride (Iv Sodium Chloride 0.9% 1000ml Bag) 1,000 ml @ 400 mls/hr Q2H30M PRN IV PATENCY; Start 09/11/16 at 08:50; Stop 09/11/16 at 20:49; Status DC Info (PHARMACY MONITORING -- do not chart) 1 each PRN DAILY PRN MC SEE COMMENTS ; Start 09/11/16 at 09:00 Info (PHARMACY MONITORING -- do not chart) 1 each PRN DAILY PRN MC SEE COMMENTS ; Start 09/11/16 at 09:00; Status UNV Sodium Cl/Sod Bicarb/Potass Cl/ PEG (Golytely) 4,000 ml 1X ONCE PO Last administered on 09/11/16t 17:13; Start 09/11/16 at 13:00; Stop 09/11/16 at 13:01 ; Status DC Fentanyl Citrate (Fentanyl 2ml Vial) 25 mcg PRN Q5MIN PRN IV MILD PAIN; Start 09/12/16 at 07:00; Stop 09/13/16 at 06:59; Status DC Fentanyl Citrate 50 mcg 50 mcg PRN Q5MIN PRN IV MODERATE PAIN; Start 09/12/16 at 07:00; Stop 09/13/16 at 06:59; Status DC Lactated Ringer's (Iv Lactated Ringers) 1,000 ml @ 0 mls/hr Q0M IV ; Start at 07:00; Stop 09/12/16 at 18:59; Status DC Lidocaine HCl 2 ml 1X PRN PRN ID IV START; Start 09/12/16 at 07:00; Stop at 06:59; Status DC Prochlorperazine Edisylate (Compazine) 5 mg PACU PRN PRN IV NAUSEA; Start 09/12 at 07:00; Stop 09/13/16 at 06:59; Status DC Pantoprazole Sodium 40 mg 40 mg DAILYAC IVP ; Start 09/13/16 at 07:30; Status UNV Magnesium Sulfate/ Dextrose 50 ml @ 25 mls/hr 1X ONCE IV ; Start 09/12/16 at 11 :30; Stop 09/12/16 at 13:29; Status DC Propofol 20 ml @ As Directed STK-MED ONCE IV ; Start 09/12/16 at 12:55; Stop at 12:56; Status DC Propofol (Diprivan) 20 ml @ As Directed STK-MED ONCE IV ; Start 09/12/16 at 12: 55; Stop 09/12/16 at 12:56; Status DC Lidocaine HCl (Lidocaine Pf 2% Vial) 5 ml STK-MED ONCE .ROUTE ; Start 09/12/16 at 12:55; Stop 09/12/16 at 12:56; Status DC Lorazepam (Ativan) 2 mg PRN Q4HRS PRN IV ANXIETY / AGITATION; Start 09/12/16 at 14:15 Lorazepam (Ativan) 2 mg Q4HRS PRN IV ANXIETY / AGITATION; Start 09/12/16 at 14: 15; Status UNV Haloperidol Lactate (Haldol) 2.5 mg PRN Q6HRS PRN IM AGITATION; Start 09/12/16 at 14:15 Haloperidol Lactate (Haldol) 2.5 mg PRN Q6HRS PRN IVP AGITATION; Start at 14:15 Lorazepam 2 mg 2 mg PRN Q4HRS PRN IM ANXIETY / AGITATION; Start 09/12/16 at 14: 30 Sodium Chloride (Iv Sodium Chloride 0.9% 1000ml Bag) 1,000 ml @ 1,000 mls/hr Q1H PRN IV hypotension; Start 09/13/16 at 08:39; Stop 09/13/16 at 14:38; Status DC Diphenhydramine HCl (Benadryl) 25 mg 1X PRN PRN IV ITCHING; Start 09/13/16 at 08:45; Stop 09/14/16 at 08:44; Status DC Diphenhydramine HCl (Benadryl) 25 mg 1X PRN PRN IV ITCHING; Start 09/13/16 at 08:45; Stop 09/14/16 at 08:44; Status DC Sodium Chloride (Normal Saline Flush) 10 ml 1X PRN PRN IV AP catheter pack; Start 09/13/16 at 08:45; Stop 09/14/16 at 08:44; Status DC Sodium Chloride (Normal Saline Flush) 10 ml 1X PRN PRN IV IMPLEMENTATION TECHNICIAN catheter pack; Start 09/13/16 at 08:45; Stop 09/14/16 at 08:44; Status DC Labetalol HCl (Normodyne) 10 mg PRN Q1HR PRN IVP SBP > 180; Start 09/13/16 at 08:45; Stop 09/14/16 at 08:44; Status DC Info (PHARMACY MONITORING -- do not chart) 1 each PRN DAILY PRN MC SEE COMMENTS ; Start 09/13/16 at 08:45; Status UNV Info (PHARMACY MONITORING -- do not chart) 1 each PRN DAILY PRN MC SEE COMMENTS ; Start 09/13/16 at 08:45; Status UNV Pantoprazole Sodium (Protonix Vial) 40 mg DAILYAC IVP Last administered on 09/14t 08:07; Start 09/13/16 at 13:00 Active Scripts Active Reported [Mylanta] Tylenol (Acetaminophen) 325 Mg Tablet 1 Tab PO PRN Q4HRS Fleet Enema (Na Phos,M-B/Na Phos,Di-Ba) 133 Ml Enema 1 Each RC ONCE Dulcolax (Bisacodyl) 10 Mg Supp.rect 10 Mg RC PRN DAILY PRN Zofran Odt (Ondansetron) 8 Mg Tab.rapdis 1 Tab PO Q8HRS Nitrostat (Nitroglycerin) 0.4 Mg Tab.subl 1 Tab SL UD Cyclobenzaprine Hcl 10 Mg Tablet 1 Tab PO TID Zepatier 50-100 mg Tablet (Elbasvir/Grazoprevir) 1 Each Tablet 1 Each PO [PhosLo] Coreg (Carvedilol) 25 Mg Tablet 1 Tab PO BID Aspirin 81 Mg Tab.chew 1 Tab PO DAILY Allopurinol 100 Mg Tablet 1 Tab PO DAILY Ventolin Hfa Inhaler (Albuterol Sulfate) 18 Gm Hfa.aer.ad 2 Puff INH Q4HRS Nephplex Rx Tablet (Vit B Cmplx No3/Fa/C/Biot/Zinc) 1 Each Tablet 1 Each PO Senokot (Sennosides) 8.6 Mg Tablet 1 Tab PO BID Oxycontin (Oxycodone HCl) 10 Mg Tab.er.12h 10 Mg PO BID Glycolax (Polyethylene Glycol 3350) 119 Gm Powder 17 Gm PO UD Percocet 10-325 Mg Tablet (Oxycodone/Acetaminophen) 1 Each Tablet 1 Tab PO Q4- 6HRS Vitamin D3 (Cholecalciferol (Vitamin D3)) 1,000 Unit Tablet 1 Tab PO DAILY Advair 250-50 Diskus (Fluticasone/Salmeterol) 1 Each Disk.w.dev 1 Puff IH BID Ipratropium Effort 0.2 Mg/1 Ml Solution 1 Vial NEB QID Lidoderm (Lidocaine) 700 Mg Adh..patch 1 Patch TP DAILY Nortriptyline Hcl 25 Mg Capsule 1 Cap PO QHS Ciprofloxacin Hcl 250 Mg Tablet 1 Tab PO BID Warfarin Sodium 2 Mg Tablet 1.5 Mg PO DAILY Gabapentin 300 Mg Capsule 300 Mg PO TID Zoloft (Sertraline Hcl) 100 Mg Tablet 1 Tab PO DAILY Vitals/I & O Vital Sign - Last 24 Hours 09/13/16 09/13/16 09/13/16 09/13/16 11:00 12:00 20:00 20:08 Pulse 82 Resp 18 16 B/P 120/87 Pulse Ox 100 O2 Delivery Room Air Room Air Room Air Room Air 09/13/16 09/13/16 09/13/16 09/14/16 21:30 21:30 23:58 00:08 Temp 98.1 98.1 98.1 98.1 Pulse 81 82 Resp 20 12 23 B/P 114/81 133/73 Pulse Ox 100 94 100 O2 Delivery Room Air Room Air Room Air Room Air 09/14/16 09/14/16 09/14/16 09/14/16 03:31 08:06 08:07 08:36 Temp 97.5 97.5 Pulse 90 86 Resp 17 20 B/P 116/83 134/88 Pulse Ox 98 99 97 O2 Delivery Room Air Room Air Room Air 09/14/16 08:57 Temp 97.6 97.6 Pulse 82 Resp 22 B/P 134/88 Pulse Ox 97 O2 Delivery Room Air Intake and Output 09/13/16 09/13/16 09/14/16 15:00 23:00 07:00 Intake Total 1900 ml 100 ml 90 ml Output Total 100 ml 100 ml 50 ml Balance 1800 ml 0 ml 40 ml TANA ANDREW III DO Sep 14, 2016 10:49
[2016-09-14 12:00] VITALS: BP 122/84
[2016-09-14 16:00] VITALS: BP 123/81
--- NOTE | 2016-09-14 16:50 | PDOC ---
Provider Note Provider Note RENAL F/U : ANATOLY S : Doing better. No new issues reported. O : VSS Afebrile. Neck : Supple. Lungs : Non labored. CVS : RRR ABD : Benign appearing. No distention. Ext. : No major edema. Labs reviewed. A/P: ESRD CPM HD per schedule. LEFTY LEDBETTER MD Sep 14, 2016 16:50
[2016-09-14 16:53] LABS: HEMATOCRIT 23.8 % (36.0-47.0); HEMOGLOBIN 7.9 g/dL (12.0-15.5); RED BLOOD COUNT 2.83 x10^6/uL (3.50-5.40); RED CELL DISTRIBUTION WIDTH 16.5 % (11.5-14.5); WHITE BLOOD COUNT 8.6 x10^3/uL (4.0-11.0)
[2016-09-14 20:00] VITALS: BP 107/70
[2016-09-15] VITALS: BP 116/85
[2016-09-15] MEDS: NORTRIPTYLINE 25 MG CAPSULE PO SCH ×2 (00:44→21:39)
[2016-09-15] MEDS: ONDANSETRON ODT 4 MG TAB.RAPDIS PO SCH ×4 (00:44→21:44)
[2016-09-15] MEDS: CYCLOBENZAPRINE 10 MG TABLET. PO PRN (00:44)
[2016-09-15 04:00] VITALS: BP 115/74
[2016-09-15 07:09] LABS: BASO # 0.1 x10^3/uL (0.0-0.2); BASO % 1 % (0-3); EOS % 3 % (0-3); HEMATOCRIT 25.2 % (36.0-47.0); HEMOGLOBIN 8.2 g/dL (12.0-15.5); LYMPH # 2.4 x10^3/uL (1.0-4.8); LYMPH % 29 % (24-48); MEAN CORPUSCULAR HEMOGLOBIN 28 pg (25-35); MEAN CORPUSCULAR HGB CONC 33 g/dL (31-37); MEAN CORPUSCULAR VOLUME 85 fL (79-100); MONO % 12 % (0-9); NEUT % 56 % (31-73); PLATELET COUNT 279 x10^3/uL (140-400); RED BLOOD COUNT 2.98 x10^6/uL (3.50-5.40); RED CELL DISTRIBUTION WIDTH 16.6 % (11.5-14.5); WHITE BLOOD COUNT 8.2 x10^3/uL (4.0-11.0)
[2016-09-15 07:27] LABS: ALBUMIN 1.5 g/dL (3.4-5.0); CALCIUM 7.7 mg/dL (8.5-10.1); CREATININE 3.8 mg/dL (0.6-1.0); GFR 14.7; MAGNESIUM 1.6 mg/dL (1.8-2.4); PHOSPHORUS 3.4 mg/dL (2.6-4.7); POTASSIUM 3.5 mmol/L (3.5-5.1)
[2016-09-15 07:45] LABS: INR 1.7 (0.8-1.1); PROTHROMBIN TIME PATIENT 18.9 SEC (11.7-14.0)
[2016-09-15 08:00] VITALS: BP 100/72
[2016-09-15] MEDS: CARVEDILOL 12.5 MG TABLET PO SCH ×2 (08:00→18:32)
[2016-09-15] MEDS: OXYCODONE ER 10 MG TAB.ER.12H. PO SCH ×2 (08:30→21:45)
[2016-09-15] MEDS: PANTOPRAZOLE IV PUSH 40 MG VIAL. IVP SCH (08:30)
[2016-09-15] MEDS: SERTRALINE 50 MG TABLET. PO SCH (08:30)
[2016-09-15] MEDS: ALLOPURINOL 100 MG TABLET. PO SCH (08:30)
[2016-09-15] MEDS: LIDOCAINE (700MG/PATCH) PATCH. TP SCH (08:31)
[2016-09-15] MEDS: GABAPENTIN 300 MG CAPSULE. PO SCH (08:34)
[2016-09-15] MEDS: BUDESONIDE 0.5 MG/2 ML NEBU NEB SCH ×2 (08:36→20:21)
[2016-09-15] MEDS: IPRATRPIUM/ALBUTEROL 0.5/2.5MG 3 ML NEBU. NEB SCH ×4 (08:36→20:21)
[2016-09-15 10:31] LABS: % EOS 8 % (0-5)
[2016-09-15 10:32] LABS: PLT ESTIMATE ADEQUATE (ADEQUATE)
[2016-09-15 12:00] VITALS: BP 140/93
[2016-09-15] MEDS: OXYCODONE/APAP 10/325 TABLET. PO PRN (12:27)
--- NOTE | 2016-09-15 12:58 | PDOC ---
PROGRESS NOTES Chief Complaint Chief Complaint 1. Acute blood loss anemia, GI bleed, 2. ESRD, 3. Coagulopathy, was on Coumadin for afib, 4. Hypertension 5. Asthma 6. Obesity 7. Back pain History of Present Illness History of Present Illness Pt seen and examined this AM, pt sitting up in chair resting with NAD. Pt states that she is feeling "better" and is now open to any procedures or medical management that would help her. Nurse present during eval. VSS- All questions and concerns addressed and answered. Hgb trending up at 8.2 Vitals Vitals Vital Signs Date Time Temp Pulse Resp B/P Pulse Ox O2 Delivery O2 Flow Rate FiO2 09/15/16 12:34 98 Room Air 09/15/16 12:27 22 09/15/16 08:00 97.7 77 100/72 97.7 Physical Exam General: Alert, Oriented X3, Cooperative, No acute distress Heart: Normal S1, Normal S2 Lungs: Clear Abdomen: Normal bowel sounds, Soft, No tenderness, No hepatosplenomegaly Extremities: No clubbing, No cyanosis Skin: No rashes, No significant lesion Labs LABS Laboratory Tests Test 09/14/16 16:30 09/14/16 18:15 09/15/16 06:50 09/15/16 07:15 White Blood Count 8.6x10^3/uL (4.0-11.0) 8.2x10^3/uL (4.0-11.0) Red Blood Count 2.83x10^6/uL (3.50-5.40) 2.98x10^6/uL (3.50-5.40) Hemoglobin 7.9g/dL (12.0-15.5) 8.2g/dL (12.0-15.5) Hematocrit 23.8% (36.0-47.0) 25.2% (36.0-47.0) Mean Corpuscular Volume 84fL (79-100) 85fL (79-100) Mean Corpuscular Hemoglobin 28pg (25-35) 28pg (25-35) Mean Corpuscular Hemoglobin Concent 33g/dL (31-37) 33g/dL (31-37) Red Cell Distribution Width 16.5% (11.5-14.5) 16.6% (11.5-14.5) Platelet Count 256x10^3/uL (140-400) 279x10^3/uL (140-400) Glucose (Fingerstick) 93mg/dL (70-99) Neutrophils (%) (Auto) 56% (31-73) Lymphocytes (%) (Auto) 29% (24-48) Monocytes (%) (Auto) 12% (0-9) Eosinophils (%) (Auto) 3% (0-3) Basophils (%) (Auto) 1% (0-3) Neutrophils # (Auto) 4.6x10^3uL (1.8-7.7) Lymphocytes # (Auto) 2.4x10^3/uL (1.0-4.8) Monocytes # (Auto) 1.0x10^3/uL (0.0-1.1) Eosinophils # (Auto) 0.2x10^3/uL (0.0-0.7) Basophils # (Auto) 0.1x10^3/uL (0.0-0.2) Segmented Neutrophils % 59% (35-66) Lymphocytes % 25% (24-48) Monocytes % 8% (0-10) Eosinophils % 8% (0-5) Platelet Estimate Adequate (ADEQUATE) Sodium Level 137mmol/L (136-145) Potassium Level 3.5mmol/L (3.5-5.1) Chloride Level 100mmol/L (98-107) Carbon Dioxide Level 30mmol/L (21-32) Anion Gap 7 (6-14) Blood Urea Nitrogen 18mg/dL (7-20) Creatinine 3.8mg/dL (0.6-1.0) Estimated GFR (Cockcroft-Gault) 14.7 Glucose Level 96mg/dL (70-99) Calcium Level 7.7mg/dL (8.5-10.1) Phosphorus Level 3.4mg/dL (2.6-4.7) Magnesium Level 1.6mg/dL (1.8-2.4) Albumin 1.5g/dL (3.4-5.0) Prothrombin Time 18.9SEC (11.7-14.0) Prothromb Time International Ratio 1.7 (0.8-1.1) Test 09/15/16 08:27 09/15/16 12:29 Glucose (Fingerstick) 89mg/dL (70-99) 101mg/dL (70-99) Review of Systems Review of Systems Patient complaint of hunger Patient complaint of fatigue Assessment and Plan Assessmemt and Plan Problems Medical Problems: (1) Anemia Status: Acute (2) Coagulopathy Status: Acute (3) Coumadin toxicity Status: Acute (4) Elevated INR (international normalized ratio) due to prior anticoagulant medication ingestion Status: Acute (5) ESRD on dialysis Status: Acute (6) GI bleed Status: Acute Assessment: 1. Acute blood loss anemia, GI bleed, 2. ESRD, 3. Coagulopathy, was on Coumadin for afib, 4. Hypertension 5. Asthma 6. Obesity 7. Back pain Plan: Continue to monitor the patient per ICU protocol Daily labs- CBC, BMP, BUN and Cr Monitor daily Hgb watching for trend Labs reviewed Continue Protonix 40 mg IVP Continue home meds Appreciate all subspecialty input and recommendations Possible EGD/scope tomorrow if GI recommends Daily PTOT Move out of ICU when bed available Discuss with H[employer]TING SAL[employer]ADER Problems: Comment Review of Relevant I have reviewed the following items christi (where applicable) has been applied. Labs Laboratory Tests Test 09/13/16 18:00 09/14/16 05:00 09/14/16 08:14 09/14/16 12:40 White Blood Count 9.8x10^3/uL (4.0-11.0) Red Blood Count 2.98x10^6/uL (3.50-5.40) Hemoglobin 8.3g/dL (12.0-15.5) Hematocrit 24.9% (36.0-47.0) Mean Corpuscular Volume 84fL (79-100) Mean Corpuscular Hemoglobin 28pg (25-35) Mean Corpuscular Hemoglobin Concent 33g/dL (31-37) Red Cell Distribution Width 15.6% (11.5-14.5) Platelet Count 234x10^3/uL (140-400) Neutrophils (%) (Auto) 67% (31-73) Lymphocytes (%) (Auto) 21% (24-48) Monocytes (%) (Auto) 10% (0-9) Eosinophils (%) (Auto) 2% (0-3) Basophils (%) (Auto) 1% (0-3) Neutrophils # (Auto) 6.6x10^3uL (1.8-7.7) Lymphocytes # (Auto) 2.0x10^3/uL (1.0-4.8) Monocytes # (Auto) 0.9x10^3/uL (0.0-1.1) Eosinophils # (Auto) 0.2x10^3/uL (0.0-0.7) Basophils # (Auto) 0.1x10^3/uL (0.0-0.2) Ammonia 16mcmol/L (11-34) Prothrombin Time 19.5SEC (11.7-14.0) Prothromb Time International Ratio 1.8 (0.8-1.1) Sodium Level 138mmol/L (136-145) Potassium Level 3.4mmol/L (3.5-5.1) Chloride Level 101mmol/L (98-107) Carbon Dioxide Level 29mmol/L (21-32) Anion Gap 8 (6-14) Blood Urea Nitrogen 14mg/dL (7-20) Creatinine 2.7mg/dL (0.6-1.0) Estimated GFR (Cockcroft-Gault) 21.8 Glucose Level 74mg/dL (70-99) Calcium Level 7.9mg/dL (8.5-10.1) Phosphorus Level 2.9mg/dL (2.6-4.7) Magnesium Level 1.6mg/dL (1.8-2.4) Albumin 1.5g/dL (3.4-5.0) Glucose (Fingerstick) 72mg/dL (70-99) 84mg/dL (70-99) Test 09/14/16 16:30 09/14/16 18:15 09/15/16 06:50 09/15/16 07:15 White Blood Count 8.6x10^3/uL (4.0-11.0) 8.2x10^3/uL (4.0-11.0) Red Blood Count 2.83x10^6/uL (3.50-5.40) 2.98x10^6/uL (3.50-5.40) Hemoglobin 7.9g/dL (12.0-15.5) 8.2g/dL (12.0-15.5) Hematocrit 23.8% (36.0-47.0) 25.2% (36.0-47.0) Mean Corpuscular Volume 84fL (79-100) 85fL (79-100) Mean Corpuscular Hemoglobin 28pg (25-35) 28pg (25-35) Mean Corpuscular Hemoglobin Concent 33g/dL (31-37) 33g/dL (31-37) Red Cell Distribution Width 16.5% (11.5-14.5) 16.6% (11.5-14.5) Platelet Count 256x10^3/uL (140-400) 279x10^3/uL (140-400) Glucose (Fingerstick) 93mg/dL (70-99) Neutrophils (%) (Auto) 56% (31-73) Lymphocytes (%) (Auto) 29% (24-48) Monocytes (%) (Auto) 12% (0-9) Eosinophils (%) (Auto) 3% (0-3) Basophils (%) (Auto) 1% (0-3) Neutrophils # (Auto) 4.6x10^3uL (1.8-7.7) Lymphocytes # (Auto) 2.4x10^3/uL (1.0-4.8) Monocytes # (Auto) 1.0x10^3/uL (0.0-1.1) Eosinophils # (Auto) 0.2x10^3/uL (0.0-0.7) Basophils # (Auto) 0.1x10^3/uL (0.0-0.2) Segmented Neutrophils % 59% (35-66) Lymphocytes % 25% (24-48) Monocytes % 8% (0-10) Eosinophils % 8% (0-5) Platelet Estimate Adequate (ADEQUATE) Sodium Level 137mmol/L (136-145) Potassium Level 3.5mmol/L (3.5-5.1) Chloride Level 100mmol/L (98-107) Carbon Dioxide Level 30mmol/L (21-32) Anion Gap 7 (6-14) Blood Urea Nitrogen 18mg/dL (7-20) Creatinine 3.8mg/dL (0.6-1.0) Estimated GFR (Cockcroft-Gault) 14.7 Glucose Level 96mg/dL (70-99) Calcium Level 7.7mg/dL (8.5-10.1) Phosphorus Level 3.4mg/dL (2.6-4.7) Magnesium Level 1.6mg/dL (1.8-2.4) Albumin 1.5g/dL (3.4-5.0) Prothrombin Time 18.9SEC (11.7-14.0) Prothromb Time International Ratio 1.7 (0.8-1.1) Test 09/15/16 08:27 09/15/16 12:29 Glucose (Fingerstick) 89mg/dL (70-99) 101mg/dL (70-99) Laboratory Tests Test 09/14/16 16:30 09/14/16 18:15 09/15/16 06:50 09/15/16 07:15 White Blood Count 8.6x10^3/uL (4.0-11.0) 8.2x10^3/uL (4.0-11.0) Red Blood Count 2.83x10^6/uL (3.50-5.40) 2.98x10^6/uL (3.50-5.40) Hemoglobin 7.9g/dL (12.0-15.5) 8.2g/dL (12.0-15.5) Hematocrit 23.8% (36.0-47.0) 25.2% (36.0-47.0) Mean Corpuscular Volume 84fL (79-100) 85fL (79-100) Mean Corpuscular Hemoglobin 28pg (25-35) 28pg (25-35) Mean Corpuscular Hemoglobin Concent 33g/dL (31-37) 33g/dL (31-37) Red Cell Distribution Width 16.5% (11.5-14.5) 16.6% (11.5-14.5) Platelet Count 256x10^3/uL (140-400) 279x10^3/uL (140-400) Glucose (Fingerstick) 93mg/dL (70-99) Neutrophils (%) (Auto) 56% (31-73) Lymphocytes (%) (Auto) 29% (24-48) Monocytes (%) (Auto) 12% (0-9) Eosinophils (%) (Auto) 3% (0-3) Basophils (%) (Auto) 1% (0-3) Neutrophils # (Auto) 4.6x10^3uL (1.8-7.7) Lymphocytes # (Auto) 2.4x10^3/uL (1.0-4.8) Monocytes # (Auto) 1.0x10^3/uL (0.0-1.1) Eosinophils # (Auto) 0.2x10^3/uL (0.0-0.7) Basophils # (Auto) 0.1x10^3/uL (0.0-0.2) Segmented Neutrophils % 59% (35-66) Lymphocytes % 25% (24-48) Monocytes % 8% (0-10) Eosinophils % 8% (0-5) Platelet Estimate Adequate (ADEQUATE) Sodium Level 137mmol/L (136-145) Potassium Level 3.5mmol/L (3.5-5.1) Chloride Level 100mmol/L (98-107) Carbon Dioxide Level 30mmol/L (21-32) Anion Gap 7 (6-14) Blood Urea Nitrogen 18mg/dL (7-20) Creatinine 3.8mg/dL (0.6-1.0) Estimated GFR (Cockcroft-Gault) 14.7 Glucose Level 96mg/dL (70-99) Calcium Level 7.7mg/dL (8.5-10.1) Phosphorus Level 3.4mg/dL (2.6-4.7) Magnesium Level 1.6mg/dL (1.8-2.4) Albumin 1.5g/dL (3.4-5.0) Prothrombin Time 18.9SEC (11.7-14.0) Prothromb Time International Ratio 1.7 (0.8-1.1) Test 09/15/16 08:27 09/15/16 12:29 Glucose (Fingerstick) 89mg/dL (70-99) 101mg/dL (70-99) Medications Current Medications Oxycodone/ Acetaminophen (Percocet 5/325) 1 tab 1X ONCE PO ; Start 09/09/16 at 19:00; Stop 09/09/16 at 19:01; Status DC Hydromorphone HCl 1 mg 1 mg 1X ONCE IV Last administered on 09/09/16 19:21; Start 09/09/16 at 19:15; Stop 09/09/16 at 19:16; Status DC Pantoprazole Sodium/Sodium Chloride (Protonix Iv/Iv Sodium Chloride 0.9% 100ml) 100 ml @ 10 mls/hr 1X ONCE IV Last administered on 09/09/16 19:51; Start at 19:30; Stop 09/10/16 at 05:29; Status DC Ondansetron HCl 4 mg 4 mg PRN Q8HRS PRN IV NAUSEA/VOMITING Last administered on 09/09/16 19:51; Start 09/09/16 at 19:30; Stop 09/10/16 at 19:29; Status DC Sodium Chloride (Iv Sodium Chloride 0.9% 1000ml Bag) 1,000 ml @ 100 mls/hr Q10H IV Last administered on 09/09/16 19:51; Start 09/09/16 at 19:30; Stop at 06:00; Status DC Acetaminophen (Tylenol) 650 mg PRN Q4HRS PRN PO FEVER Last administered on 09/09 19:52; Start 09/09/16 at 19:30; Stop 09/10/16 at 19:29; Status DC Multi-Ingredient Mouthwash/Gargle 15 ml 15 ml 1X ONCE SWSW Last administered on 09/09/16 23:41; Start 09/09/16 at 23:30; Stop 09/09/16 at 23:31; Status DC Phytonadione/ Sodium Chloride (Vitamin K/Iv Sodium Chloride 0.9% 50ml) 51 ml @ 102 mls/hr 1X ONCE IV Last administered on 09/10/16 02:07; Start 09/10/16 at 00:00; Stop 09/10/16 at 00:29; Status DC Acetaminophen (Tylenol) 325 mg PRN Q4HRS PO ; Start 09/09/16 at 23:30; Stop at 23:30; Status DC Allopurinol (Zyloprim) 100 mg DAILY PO Last administered on 09/15/16 08:30; Start 09/10/16 at 09:00 Bisacodyl (Dulcolax Supp) 10 mg PRN DAILY PRN RC CONSTIPATION; Start 09/09/16 at 23:30 Cyclobenzaprine HCl (Flexeril) 10 mg PRN TID PRN PO back pain Last administered on 09/15/16 00:44; Start 09/09/16 at 23:30 Gabapentin (Neurontin) 300 mg DAILY PO Last administered on 09/15/16 08:34; Start 09/10/16 at 09:00 Ipratropium [place] (Atrovent) 0.2 mg QID NEB ; Start 09/10/16 at 09:00; Status UNV Lidocaine (Lidoderm) 1 patch DAILY TP Last administered on 09/15/16 08:31; Start 09/10/16 at 09:00 Nortriptyline HCl (Pamelor) 25 mg QHS PO Last administered on 09/15/16 00:44; Start 09/10/16 at 21:00 Oxycodone HCl (Oxycontin) 10 mg BID PO Last administered on 09/15/16 08:30; Start 09/10/16 at 09:00 Oxycodone/ Acetaminophen (Percocet 10/325) 1 tab PRN Q4HRS PRN PO SEVERE PAIN Last administered on 09/15/16 12:27; Start 09/09/16 at 23:30 Non-Formulary Medication 2 puff Q4HRS INH FOR ASTHMA; Start 09/10/16 at 00:00; Status UNV Carvedilol (Coreg) 25 mg BIDWMEALS PO Last administered on 09/14/16 18:19; Start 09/10/16 at 08:00 Non-Formulary Medication 1 puff BID IH ; Start 09/10/16 at 09:00; Status UNV Ondansetron HCl (Zofran Odt) 8 mg Q8HRS PO Last administered on 09/15/16 06:38 ; Start 09/10/16 at 06:00 Sertraline HCl (Zoloft) 100 mg DAILY PO Last administered on 09/15/16 08:30; Start 09/10/16 at 09:00 Labetalol HCl (Normodyne) 20 mg PRN Q2HR PRN IVP HYPERTENSION, SEE COMMENTS Last administered on 09/13/16 00:17; Start 09/09/16 at 23:30 Albuterol/ Ipratropium (Duoneb) 3 ml RTQID NEB Last administered on 09/15/16 12:34; Start 09/10/16 at 08:00 Budesonide (Pulmicort) 0.5 mg RTBID NEB Last administered on 09/15/16 08:36; Start 09/10/16 at 08:00 Albuterol Sulfate 2.5 mg 2.5 mg PRN Q4HRS PRN NEB SHORTNESS OF BREATH; Start at 23:30 Pantoprazole Sodium 80 mg/ Sodium Chloride 100 ml @ 10 mls/hr Q10H IV Last administered on 09/13/16 07:51; Start 09/10/16 at 10:00; Stop 09/13/16 at 09:59 ; Status DC Magnesium Sulfate/ Dextrose 50 ml @ 25 mls/hr PRN DAILY PRN IV for Mag < 1.7 on am labs; Start 09/10/16 at 10:00 Sodium Chloride (Iv Sodium Chloride 0.9% 1000ml Bag) 1,000 ml @ 1,000 mls/hr Q1H PRN IV hypotension; Start 09/11/16 at 08:50; Stop 09/11/16 at 14:49; Status DC Diphenhydramine HCl (Benadryl) 25 mg 1X PRN PRN IV ITCHING; Start 09/11/16 at 09:00; Stop 09/12/16 at 08:59; Status DC Diphenhydramine HCl (Benadryl) 25 mg 1X PRN PRN IV ITCHING; Start 09/11/16 at 09:00; Stop 09/12/16 at 08:59; Status DC Sodium Chloride (Normal Saline Flush) 10 ml 1X PRN PRN IV AP catheter pack; Start 09/11/16 at 09:00; Stop 09/12/16 at 08:59; Status DC Sodium Chloride (Normal Saline Flush) 10 ml 1X PRN PRN IV LEAD [employer] catheter pack; Start 09/11/16 at 09:00; Stop 09/12/16 at 08:59; Status DC Labetalol HCl 10 mg 10 mg PRN Q1HR PRN IVP SBP > 180; Start 09/11/16 at 09:00; Stop 09/12/16 at 08:59; Status DC Sodium Chloride (Iv Sodium Chloride 0.9% 1000ml Bag) 1,000 ml @ 400 mls/hr Q2H30M PRN IV PATENCY; Start 09/11/16 at 08:50; Stop 09/11/16 at 20:49; Status DC Info (PHARMACY MONITORING -- do not chart) 1 each PRN DAILY PRN MC SEE COMMENTS ; Start 09/11/16 at 09:00 Info (PHARMACY MONITORING -- do not chart) 1 each PRN DAILY PRN MC SEE COMMENTS ; Start 09/11/16 at 09:00; Status UNV Sodium Cl/Sod Bicarb/Potass Cl/ PEG (Golytely) 4,000 ml 1X ONCE PO Last administered on 09/11/16t 17:13; Start 09/11/16 at 13:00; Stop 09/11/16 at 13:01 ; Status DC Fentanyl Citrate (Fentanyl 2ml Vial) 25 mcg PRN Q5MIN PRN IV MILD PAIN; Start 09/12/16 at 07:00; Stop 09/13/16 at 06:59; Status DC Fentanyl Citrate 50 mcg 50 mcg PRN Q5MIN PRN IV MODERATE PAIN; Start 09/12/16 at 07:00; Stop 09/13/16 at 06:59; Status DC Lactated Ringer's (Iv Lactated Ringers) 1,000 ml @ 0 mls/hr Q0M IV ; Start at 07:00; Stop 09/12/16 at 18:59; Status DC Lidocaine HCl 2 ml 1X PRN PRN ID IV START; Start 09/12/16 at 07:00; Stop at 06:59; Status DC Prochlorperazine Edisylate (Compazine) 5 mg PACU PRN PRN IV NAUSEA; Start 09/12 at 07:00; Stop 09/13/16 at 06:59; Status DC Pantoprazole Sodium 40 mg 40 mg DAILYAC IVP ; Start 09/13/16 at 07:30; Status UNV Magnesium Sulfate/ Dextrose 50 ml @ 25 mls/hr 1X ONCE IV ; Start 09/12/16 at 11 :30; Stop 09/12/16 at 13:29; Status DC Propofol 20 ml @ As Directed STK-MED ONCE IV ; Start 09/12/16 at 12:55; Stop at 12:56; Status DC Propofol (Diprivan) 20 ml @ As Directed STK-MED ONCE IV ; Start 09/12/16 at 12: 55; Stop 09/12/16 at 12:56; Status DC Lidocaine HCl (Lidocaine Pf 2% Vial) 5 ml STK-MED ONCE .ROUTE ; Start 09/12/16 at 12:55; Stop 09/12/16 at 12:56; Status DC Lorazepam (Ativan) 2 mg PRN Q4HRS PRN IV ANXIETY / AGITATION; Start 09/12/16 at 14:15 Lorazepam (Ativan) 2 mg Q4HRS PRN IV ANXIETY / AGITATION; Start 09/12/16 at 14: 15; Status UNV Haloperidol Lactate (Haldol) 2.5 mg PRN Q6HRS PRN IM AGITATION; Start 09/12/16 at 14:15 Haloperidol Lactate (Haldol) 2.5 mg PRN Q6HRS PRN IVP AGITATION; Start at 14:15 Lorazepam 2 mg 2 mg PRN Q4HRS PRN IM ANXIETY / AGITATION; Start 09/12/16 at 14: 30 Sodium Chloride (Iv Sodium Chloride 0.9% 1000ml Bag) 1,000 ml @ 1,000 mls/hr Q1H PRN IV hypotension; Start 09/13/16 at 08:39; Stop 09/13/16 at 14:38; Status DC Diphenhydramine HCl (Benadryl) 25 mg 1X PRN PRN IV ITCHING; Start 09/13/16 at 08:45; Stop 09/14/16 at 08:44; Status DC Diphenhydramine HCl (Benadryl) 25 mg 1X PRN PRN IV ITCHING; Start 09/13/16 at 08:45; Stop 09/14/16 at 08:44; Status DC Sodium Chloride (Normal Saline Flush) 10 ml 1X PRN PRN IV AP catheter pack; Start 09/13/16 at 08:45; Stop 09/14/16 at 08:44; Status DC Sodium Chloride (Normal Saline Flush) 10 ml 1X PRN PRN IV [employer] catheter pack; Start 09/13/16 at 08:45; Stop 09/14/16 at 08:44; Status DC Labetalol HCl (Normodyne) 10 mg PRN Q1HR PRN IVP SBP > 180; Start 09/13/16 at 08:45; Stop 09/14/16 at 08:44; Status DC Info (PHARMACY MONITORING -- do not chart) 1 each PRN DAILY PRN MC SEE COMMENTS ; Start 09/13/16 at 08:45; Status UNV Info (PHARMACY MONITORING -- do not chart) 1 each PRN DAILY PRN MC SEE COMMENTS ; Start 09/13/16 at 08:45; Status UNV Pantoprazole Sodium (Protonix Vial) 40 mg DAILYAC IVP Last administered on 09/15t 08:30; Start 09/13/16 at 13:00 Active Scripts Active Reported [Mylanta] Tylenol (Acetaminophen) 325 Mg Tablet 1 Tab PO PRN Q4HRS Fleet Enema (Na Phos,M-B/Na Phos,Di-Ba) 133 Ml Enema 1 Each RC ONCE Dulcolax (Bisacodyl) 10 Mg Supp.rect 10 Mg RC PRN DAILY PRN Zofran Odt (Ondansetron) 8 Mg Tab.rapdis 1 Tab PO Q8HRS Nitrostat (Nitroglycerin) 0.4 Mg Tab.subl 1 Tab SL UD Cyclobenzaprine Hcl 10 Mg Tablet 1 Tab PO TID Zepatier 50-100 mg Tablet (Elbasvir/Grazoprevir) 1 Each Tablet 1 Each PO [PhosLo] Coreg (Carvedilol) 25 Mg Tablet 1 Tab PO BID Aspirin 81 Mg Tab.chew 1 Tab PO DAILY Allopurinol 100 Mg Tablet 1 Tab PO DAILY Ventolin Hfa Inhaler (Albuterol Sulfate) 18 Gm Hfa.aer.ad 2 Puff INH Q4HRS Nephplex Rx Tablet (Vit B Cmplx No3/Fa/C/Biot/Zinc) 1 Each Tablet 1 Each PO Senokot (Sennosides) 8.6 Mg Tablet 1 Tab PO BID Oxycontin (Oxycodone HCl) 10 Mg Tab.er.12h 10 Mg PO BID Glycolax (Polyethylene Glycol 3350) 119 Gm Powder 17 Gm PO UD Percocet 10-325 Mg Tablet (Oxycodone/Acetaminophen) 1 Each Tablet 1 Tab PO Q4- 6HRS Vitamin D3 (Cholecalciferol (Vitamin D3)) 1,000 Unit Tablet 1 Tab PO DAILY Advair 250-50 Diskus (Fluticasone/Salmeterol) 1 Each Disk.w.dev 1 Puff IH BID Ipratropium [place] 0.2 Mg/1 Ml Solution 1 Vial NEB QID Lidoderm (Lidocaine) 700 Mg Adh..patch 1 Patch TP DAILY Nortriptyline Hcl 25 Mg Capsule 1 Cap PO QHS Ciprofloxacin Hcl 250 Mg Tablet 1 Tab PO BID Warfarin Sodium 2 Mg Tablet 1.5 Mg PO DAILY Gabapentin 300 Mg Capsule 300 Mg PO TID Zoloft (Sertraline Hcl) 100 Mg Tablet 1 Tab PO DAILY Vitals/I & O Vital Sign - Last 24 Hours 09/14/16 09/14/16 09/14/16 09/14/16 15:58 16:00 18:19 19:47 Temp 98.0 98.0 Pulse 74 75 Resp 20 24 B/P 123/81 123/81 Pulse Ox 98 93 O2 Delivery Room Air Room Air Room Air 09/14/16 09/14/16 09/14/16 09/14/16 20:00 20:00 20:09 23:47 Temp 98.4 98.4 Pulse 74 Resp 16 B/P 107/70 Pulse Ox 100 95 O2 Delivery Room Air Room Air Room Air Room Air 09/15/16 09/15/16 09/15/16 09/15/16 00:00 04:00 08:00 08:30 Temp 98.1 98.4 97.7 98.1 98.4 97.7 Pulse 76 74 77 Resp 12 20 16 22 B/P 116/85 115/74 100/72 Pulse Ox 95 93 98 95 O2 Delivery Room Air Room Air Room Air Room Air 09/15/16 09/15/16 09/15/16 08:36 12:27 12:34 Resp 22 Pulse Ox 98 97 98 O2 Delivery Room Air Room Air Room Air Intake and Output 09/14/16 09/14/16 09/15/16 15:00 23:00 07:00 Intake Total 260 ml 480 ml Output Total 0 ml Balance 260 ml 480 ml TANA ANDREW III DO Sep 15, 2016 12:58
[2016-09-15 16:00] VITALS: BP 116/81
[2016-09-15 20:00] VITALS: BP 95/72
--- NOTE | 2016-09-15 23:36 | PDOC ---
Provider Note Provider Note Provider Note RENAL F/U : ANATOLY S : Doing better. No new issues reported. O : VSS Afebrile. Neck : Supple. Lungs : Non labored. CVS : RRR ABD : Benign appearing. No distention. Ext. : No major edema. Labs reviewed. A/P: ESRD CPM HD per schedule. LEFTY LEDBETTER MD Sep 15, 2016 23:36
[2016-09-16] VITALS: BP 97/65
[2016-09-16] MEDS: OXYCODONE ER 10 MG TAB.ER.12H. PO SCH (01:45)
[2016-09-16 04:00] VITALS: BP 115/80
[2016-09-16] MEDS: PANTOPRAZOLE IV PUSH 40 MG VIAL. IVP SCH (05:57)
[2016-09-16] MEDS: ONDANSETRON ODT 4 MG TAB.RAPDIS PO SCH ×3 (05:58→22:28)
[2016-09-16 06:02] LABS: BASO # 0.1 x10^3/uL (0.0-0.2); BASO % 1 % (0-3); EOS % 3 % (0-3); HEMATOCRIT 24.3 % (36.0-47.0); HEMOGLOBIN 7.9 g/dL (12.0-15.5); LYMPH # 2.3 x10^3/uL (1.0-4.8); LYMPH % 30 % (24-48); MEAN CORPUSCULAR HEMOGLOBIN 28 pg (25-35); MEAN CORPUSCULAR HGB CONC 33 g/dL (31-37); MEAN CORPUSCULAR VOLUME 85 fL (79-100); MONO % 10 % (0-9); NEUT % 56 % (31-73); PLATELET COUNT 275 x10^3/uL (140-400); RED BLOOD COUNT 2.84 x10^6/uL (3.50-5.40); RED CELL DISTRIBUTION WIDTH 16.4 % (11.5-14.5); WHITE BLOOD COUNT 7.6 x10^3/uL (4.0-11.0)
[2016-09-16 06:11] LABS: INR 1.9 (0.8-1.1); PROTHROMBIN TIME PATIENT 20.6 SEC (11.7-14.0)
[2016-09-16 06:22] LABS: ALBUMIN 1.4 g/dL (3.4-5.0); CALCIUM 7.7 mg/dL (8.5-10.1); CREATININE 4.4 mg/dL (0.6-1.0); GFR 12.4; PHOSPHORUS 3.8 mg/dL (2.6-4.7); POTASSIUM 3.4 mmol/L (3.5-5.1)
[2016-09-16 08:00] VITALS: BP 122/79
[2016-09-16] MEDS: IPRATRPIUM/ALBUTEROL 0.5/2.5MG 3 ML NEBU. NEB SCH ×4 (08:19→19:40)
[2016-09-16] MEDS: BUDESONIDE 0.5 MG/2 ML NEBU NEB SCH ×2 (08:19→19:40)
[2016-09-16] MEDS ORDERED: IV NORMAL SALINE 1000ML BAG 1,000 ML IV PRN (08:46)
[2016-09-16] MEDS ORDERED: DIPHENHYDRAMINE 50 MG/ML VIAL IV PRN ×2 (09:00)
[2016-09-16] MEDS ORDERED: DIALYSIS PATIENT. MC PRN ×2 (09:00)
[2016-09-16] MEDS ORDERED: 0.9 % SODIUM CHLORIDE 10 ML DISP.SYRIN. IV PRN ×2 (09:00)
--- NOTE | 2016-09-16 09:44 | PDOC ---
Subjective: Subjective: No GI complaints per pt. Asks to eat. Objective: Objective: Per RN - no bleeding, was told possibility of 'scopes today. Vital Signs: Vital Signs Date Time Temp Pulse Resp B/P Pulse Ox O2 Delivery O2 Flow Rate FiO2 09/16/16 08:19 98 Room Air 09/16/16 04:00 97.6 73 18 115/80 97.6 09/16/16 01:45 2.0 Labs: Laboratory Tests Test 09/15/16 12:29 09/16/16 05:30 Glucose (Fingerstick) 101mg/dL White Blood Count 7.6x10^3/uL Red Blood Count 2.84x10^6/uL Hemoglobin 7.9g/dL Hematocrit 24.3% Mean Corpuscular Volume 85fL Mean Corpuscular Hemoglobin 28pg Mean Corpuscular Hemoglobin Concent 33g/dL Red Cell Distribution Width 16.4% Platelet Count 275x10^3/uL Neutrophils (%) (Auto) 56% Lymphocytes (%) (Auto) 30% Monocytes (%) (Auto) 10% Eosinophils (%) (Auto) 3% Basophils (%) (Auto) 1% Neutrophils # (Auto) 4.2x10^3uL Lymphocytes # (Auto) 2.3x10^3/uL Monocytes # (Auto) 0.8x10^3/uL Eosinophils # (Auto) 0.2x10^3/uL Basophils # (Auto) 0.1x10^3/uL Prothrombin Time 20.6SEC Prothromb Time International Ratio 1.9 Sodium Level 135mmol/L Potassium Level 3.4mmol/L Chloride Level 100mmol/L Carbon Dioxide Level 28mmol/L Anion Gap 7 Blood Urea Nitrogen 24mg/dL Creatinine 4.4mg/dL Estimated GFR (Cockcroft-Gault) 12.4 Glucose Level 117mg/dL Calcium Level 7.7mg/dL Phosphorus Level 3.8mg/dL Albumin 1.4g/dL PE: GEN: NAD, dialyzing LUNGS: clear anteriorly HEART: RRR ABD: S/ND/NT NEURO/PSYCH: A & O 3 A/P: Anemia, dark stools -Hgb 7.9, last transfused 09/13, no reports of bleeding over the weekend -has been on clears, also IV PPI -declined EGD/colonoscopy 09/12 -- Still anemic (stable Hgb since last transfusion) w/o ongoing bleeding. Will review w/ Dr. Ng - no endoscopy plans today that I'm aware of. JORGE YANG Sep 16, 2016 09:44
--- NOTE | 2016-09-16 10:20 | PDOC ---
PROGRESS NOTES Chief Complaint Chief Complaint 1. Acute blood loss anemia, GI bleed, 2. ESRD, 3. Coagulopathy, was on Coumadin for afib, 4. Hypertension 5. Asthma 6. Obesity 7. Back pain History of Present Illness History of Present Illness Pt seen and examined this AM, pt sitting up in chair resting with NAD. Pt states that she is feeling "better" and is now open to any procedures or medical management that would help her. Pt receiving dialysis during eval. Pt states that she is really hungry. Pt still NPO for possible procedure. VSS- All questions and concerns addressed and answered. Hgb at 7.9 Vitals Vitals Vital Signs Date Time Temp Pulse Resp B/P Pulse Ox O2 Delivery O2 Flow Rate FiO2 09/16/16 08:19 98 Room Air 09/16/16 04:00 97.6 73 18 115/80 97.6 09/16/16 01:45 2.0 Physical Exam General: Alert, Oriented X3, Cooperative, No acute distress Heart: Normal S1, Normal S2 Lungs: Clear Abdomen: Normal bowel sounds, Soft, No tenderness, No hepatosplenomegaly Extremities: No clubbing, No cyanosis Skin: No rashes, No significant lesion Labs LABS Laboratory Tests Test 09/15/16 12:29 09/16/16 05:30 Glucose (Fingerstick) 101mg/dL (70-99) White Blood Count 7.6x10^3/uL (4.0-11.0) Red Blood Count 2.84x10^6/uL (3.50-5.40) Hemoglobin 7.9g/dL (12.0-15.5) Hematocrit 24.3% (36.0-47.0) Mean Corpuscular Volume 85fL (79-100) Mean Corpuscular Hemoglobin 28pg (25-35) Mean Corpuscular Hemoglobin Concent 33g/dL (31-37) Red Cell Distribution Width 16.4% (11.5-14.5) Platelet Count 275x10^3/uL (140-400) Neutrophils (%) (Auto) 56% (31-73) Lymphocytes (%) (Auto) 30% (24-48) Monocytes (%) (Auto) 10% (0-9) Eosinophils (%) (Auto) 3% (0-3) Basophils (%) (Auto) 1% (0-3) Neutrophils # (Auto) 4.2x10^3uL (1.8-7.7) Lymphocytes # (Auto) 2.3x10^3/uL (1.0-4.8) Monocytes # (Auto) 0.8x10^3/uL (0.0-1.1) Eosinophils # (Auto) 0.2x10^3/uL (0.0-0.7) Basophils # (Auto) 0.1x10^3/uL (0.0-0.2) Prothrombin Time 20.6SEC (11.7-14.0) Prothromb Time International Ratio 1.9 (0.8-1.1) Sodium Level 135mmol/L (136-145) Potassium Level 3.4mmol/L (3.5-5.1) Chloride Level 100mmol/L (98-107) Carbon Dioxide Level 28mmol/L (21-32) Anion Gap 7 (6-14) Blood Urea Nitrogen 24mg/dL (7-20) Creatinine 4.4mg/dL (0.6-1.0) Estimated GFR (Cockcroft-Gault) 12.4 Glucose Level 117mg/dL (70-99) Calcium Level 7.7mg/dL (8.5-10.1) Phosphorus Level 3.8mg/dL (2.6-4.7) Albumin 1.4g/dL (3.4-5.0) Review of Systems Review of Systems Complaint of fatigue Complaint of hunger Assessment and Plan Assessmemt and Plan Problems Medical Problems: (1) Anemia Status: Acute (2) Coagulopathy Status: Acute (3) Coumadin toxicity Status: Acute (4) Elevated INR (international normalized ratio) due to prior anticoagulant medication ingestion Status: Acute (5) ESRD on dialysis Status: Acute (6) GI bleed Status: Acute Assessment: 1. Acute blood loss anemia, GI bleed, 2. ESRD, 3. Coagulopathy, was on Coumadin for afib, 4. Hypertension 5. Asthma 6. Obesity 7. Back pain Plan: Continue to monitor the patient per ICU protocol Continue daily CBC, BMP, BUN and Cr Monitor Hgb NPO Possible gentle PTOT Out of ICU when bed available Await GI input and recommendations Appreciate renal input and recs Discuss with ICU nurse Discuss with sales service technician Problems: Comment Review of Relevant I have reviewed the following items christi (where applicable) has been applied. Labs Laboratory Tests Test 09/14/16 12:40 09/14/16 16:30 09/14/16 18:15 09/15/16 06:50 Glucose (Fingerstick) 84mg/dL (70-99) 93mg/dL (70-99) White Blood Count 8.6x10^3/uL (4.0-11.0) 8.2x10^3/uL (4.0-11.0) Red Blood Count 2.83x10^6/uL (3.50-5.40) 2.98x10^6/uL (3.50-5.40) Hemoglobin 7.9g/dL (12.0-15.5) 8.2g/dL (12.0-15.5) Hematocrit 23.8% (36.0-47.0) 25.2% (36.0-47.0) Mean Corpuscular Volume 84fL (79-100) 85fL (79-100) Mean Corpuscular Hemoglobin 28pg (25-35) 28pg (25-35) Mean Corpuscular Hemoglobin Concent 33g/dL (31-37) 33g/dL (31-37) Red Cell Distribution Width 16.5% (11.5-14.5) 16.6% (11.5-14.5) Platelet Count 256x10^3/uL (140-400) 279x10^3/uL (140-400) Neutrophils (%) (Auto) 56% (31-73) Lymphocytes (%) (Auto) 29% (24-48) Monocytes (%) (Auto) 12% (0-9) Eosinophils (%) (Auto) 3% (0-3) Basophils (%) (Auto) 1% (0-3) Neutrophils # (Auto) 4.6x10^3uL (1.8-7.7) Lymphocytes # (Auto) 2.4x10^3/uL (1.0-4.8) Monocytes # (Auto) 1.0x10^3/uL (0.0-1.1) Eosinophils # (Auto) 0.2x10^3/uL (0.0-0.7) Basophils # (Auto) 0.1x10^3/uL (0.0-0.2) Segmented Neutrophils % 59% (35-66) Lymphocytes % 25% (24-48) Monocytes % 8% (0-10) Eosinophils % 8% (0-5) Platelet Estimate Adequate (ADEQUATE) Sodium Level 137mmol/L (136-145) Potassium Level 3.5mmol/L (3.5-5.1) Chloride Level 100mmol/L (98-107) Carbon Dioxide Level 30mmol/L (21-32) Anion Gap 7 (6-14) Blood Urea Nitrogen 18mg/dL (7-20) Creatinine 3.8mg/dL (0.6-1.0) Estimated GFR (Cockcroft-Gault) 14.7 Glucose Level 96mg/dL (70-99) Calcium Level 7.7mg/dL (8.5-10.1) Phosphorus Level 3.4mg/dL (2.6-4.7) Magnesium Level 1.6mg/dL (1.8-2.4) Albumin 1.5g/dL (3.4-5.0) Test 09/15/16 07:15 09/15/16 08:27 09/15/16 12:29 09/16/16 05:30 Prothrombin Time 18.9SEC (11.7-14.0) 20.6SEC (11.7-14.0) Prothromb Time International Ratio 1.7 (0.8-1.1) 1.9 (0.8-1.1) Glucose (Fingerstick) 89mg/dL (70-99) 101mg/dL (70-99) White Blood Count 7.6x10^3/uL (4.0-11.0) Red Blood Count 2.84x10^6/uL (3.50-5.40) Hemoglobin 7.9g/dL (12.0-15.5) Hematocrit 24.3% (36.0-47.0) Mean Corpuscular Volume 85fL (79-100) Mean Corpuscular Hemoglobin 28pg (25-35) Mean Corpuscular Hemoglobin Concent 33g/dL (31-37) Red Cell Distribution Width 16.4% (11.5-14.5) Platelet Count 275x10^3/uL (140-400) Neutrophils (%) (Auto) 56% (31-73) Lymphocytes (%) (Auto) 30% (24-48) Monocytes (%) (Auto) 10% (0-9) Eosinophils (%) (Auto) 3% (0-3) Basophils (%) (Auto) 1% (0-3) Neutrophils # (Auto) 4.2x10^3uL (1.8-7.7) Lymphocytes # (Auto) 2.3x10^3/uL (1.0-4.8) Monocytes # (Auto) 0.8x10^3/uL (0.0-1.1) Eosinophils # (Auto) 0.2x10^3/uL (0.0-0.7) Basophils # (Auto) 0.1x10^3/uL (0.0-0.2) Sodium Level 135mmol/L (136-145) Potassium Level 3.4mmol/L (3.5-5.1) Chloride Level 100mmol/L (98-107) Carbon Dioxide Level 28mmol/L (21-32) Anion Gap 7 (6-14) Blood Urea Nitrogen 24mg/dL (7-20) Creatinine 4.4mg/dL (0.6-1.0) Estimated GFR (Cockcroft-Gault) 12.4 Glucose Level 117mg/dL (70-99) Calcium Level 7.7mg/dL (8.5-10.1) Phosphorus Level 3.8mg/dL (2.6-4.7) Albumin 1.4g/dL (3.4-5.0) Laboratory Tests Test 09/15/16 12:29 09/16/16 05:30 Glucose (Fingerstick) 101mg/dL (70-99) White Blood Count 7.6x10^3/uL (4.0-11.0) Red Blood Count 2.84x10^6/uL (3.50-5.40) Hemoglobin 7.9g/dL (12.0-15.5) Hematocrit 24.3% (36.0-47.0) Mean Corpuscular Volume 85fL (79-100) Mean Corpuscular Hemoglobin 28pg (25-35) Mean Corpuscular Hemoglobin Concent 33g/dL (31-37) Red Cell Distribution Width 16.4% (11.5-14.5) Platelet Count 275x10^3/uL (140-400) Neutrophils (%) (Auto) 56% (31-73) Lymphocytes (%) (Auto) 30% (24-48) Monocytes (%) (Auto) 10% (0-9) Eosinophils (%) (Auto) 3% (0-3) Basophils (%) (Auto) 1% (0-3) Neutrophils # (Auto) 4.2x10^3uL (1.8-7.7) Lymphocytes # (Auto) 2.3x10^3/uL (1.0-4.8) Monocytes # (Auto) 0.8x10^3/uL (0.0-1.1) Eosinophils # (Auto) 0.2x10^3/uL (0.0-0.7) Basophils # (Auto) 0.1x10^3/uL (0.0-0.2) Prothrombin Time 20.6SEC (11.7-14.0) Prothromb Time International Ratio 1.9 (0.8-1.1) Sodium Level 135mmol/L (136-145) Potassium Level 3.4mmol/L (3.5-5.1) Chloride Level 100mmol/L (98-107) Carbon Dioxide Level 28mmol/L (21-32) Anion Gap 7 (6-14) Blood Urea Nitrogen 24mg/dL (7-20) Creatinine 4.4mg/dL (0.6-1.0) Estimated GFR (Cockcroft-Gault) 12.4 Glucose Level 117mg/dL (70-99) Calcium Level 7.7mg/dL (8.5-10.1) Phosphorus Level 3.8mg/dL (2.6-4.7) Albumin 1.4g/dL (3.4-5.0) Medications Current Medications Oxycodone/ Acetaminophen (Percocet 5/325) 1 tab 1X ONCE PO ; Start 09/09/16 at 19:00; Stop 09/09/16 at 19:01; Status DC Hydromorphone HCl 1 mg 1 mg 1X ONCE IV Last administered on 09/09/16t 19:21; Start 09/09/16 at 19:15; Stop 09/09/16 at 19:16; Status DC Pantoprazole Sodium/Sodium Chloride (Protonix Iv/Iv Sodium Chloride 0.9% 100ml) 100 ml @ 10 mls/hr 1X ONCE IV Last administered on 09/09/16 19:51; Start at 19:30; Stop 09/10/16 at 05:29; Status DC Ondansetron HCl 4 mg 4 mg PRN Q8HRS PRN IV NAUSEA/VOMITING Last administered on 09/09/16 19:51; Start 09/09/16 at 19:30; Stop 09/10/16 at 19:29; Status DC Sodium Chloride (Iv Sodium Chloride 0.9% 1000ml Bag) 1,000 ml @ 100 mls/hr Q10H IV Last administered on 09/09/16 19:51; Start 09/09/16 at 19:30; Stop at 06:00; Status DC Acetaminophen (Tylenol) 650 mg PRN Q4HRS PRN PO FEVER Last administered on 09/09 19:52; Start 09/09/16 at 19:30; Stop 09/10/16 at 19:29; Status DC Multi-Ingredient Mouthwash/Gargle 15 ml 15 ml 1X ONCE SWSW Last administered on 09/09/16 23:41; Start 09/09/16 at 23:30; Stop 09/09/16 at 23:31; Status DC Phytonadione/ Sodium Chloride (Vitamin K/Iv Sodium Chloride 0.9% 50ml) 51 ml @ 102 mls/hr 1X ONCE IV Last administered on 09/10/16 02:07; Start 09/10/16 at 00:00; Stop 09/10/16 at 00:29; Status DC Acetaminophen (Tylenol) 325 mg PRN Q4HRS PO ; Start 09/09/16 at 23:30; Stop at 23:30; Status DC Allopurinol (Zyloprim) 100 mg DAILY PO Last administered on 09/15/16 08:30; Start 09/10/16 at 09:00 Bisacodyl (Dulcolax Supp) 10 mg PRN DAILY PRN RC CONSTIPATION; Start 09/09/16 at 23:30 Cyclobenzaprine HCl (Flexeril) 10 mg PRN TID PRN PO back pain Last administered on 09/15/16 00:44; Start 09/09/16 at 23:30 Gabapentin (Neurontin) 300 mg DAILY PO Last administered on 09/15/16 08:34; Start 09/10/16 at 09:00 Ipratropium [place] (Atrovent) 0.2 mg QID NEB ; Start 09/10/16 at 09:00; Status UNV Lidocaine (Lidoderm) 1 patch DAILY TP Last administered on 09/15/16 08:31; Start 09/10/16 at 09:00 Nortriptyline HCl (Pamelor) 25 mg QHS PO Last administered on 09/15/16 21:39; Start 09/10/16 at 21:00 Oxycodone HCl (Oxycontin) 10 mg BID PO Last administered on 09/16/16 01:45; Start 09/10/16 at 09:00 Oxycodone/ Acetaminophen (Percocet 10/325) 1 tab PRN Q4HRS PRN PO SEVERE PAIN Last administered on 09/15/16 12:27; Start 09/09/16 at 23:30 Non-Formulary Medication 2 puff Q4HRS INH FOR ASTHMA; Start 09/10/16 at 00:00; Status UNV Carvedilol (Coreg) 25 mg BIDWMEALS PO Last administered on 09/15/16 18:32; Start 09/10/16 at 08:00 Non-Formulary Medication 1 puff BID IH ; Start 09/10/16 at 09:00; Status UNV Ondansetron HCl (Zofran Odt) 8 mg Q8HRS PO Last administered on 09/16/16 05:58 ; Start 09/10/16 at 06:00 Sertraline HCl (Zoloft) 100 mg DAILY PO Last administered on 09/15/16 08:30; Start 09/10/16 at 09:00 Labetalol HCl (Normodyne) 20 mg PRN Q2HR PRN IVP HYPERTENSION, SEE COMMENTS Last administered on 09/13/16 00:17; Start 09/09/16 at 23:30 Albuterol/ Ipratropium (Duoneb) 3 ml RTQID NEB Last administered on 09/16/16 08:19; Start 09/10/16 at 08:00 Budesonide (Pulmicort) 0.5 mg RTBID NEB Last administered on 09/16/16 08:19; Start 09/10/16 at 08:00 Albuterol Sulfate 2.5 mg 2.5 mg PRN Q4HRS PRN NEB SHORTNESS OF BREATH; Start at 23:30 Pantoprazole Sodium 80 mg/ Sodium Chloride 100 ml @ 10 mls/hr Q10H IV Last administered on 09/13/16 07:51; Start 09/10/16 at 10:00; Stop 09/13/16 at 09:59 ; Status DC Magnesium Sulfate/ Dextrose 50 ml @ 25 mls/hr PRN DAILY PRN IV for Mag < 1.7 on am labs; Start 09/10/16 at 10:00 Sodium Chloride (Iv Sodium Chloride 0.9% 1000ml Bag) 1,000 ml @ 1,000 mls/hr Q1H PRN IV hypotension; Start 09/11/16 at 08:50; Stop 09/11/16 at 14:49; Status DC Diphenhydramine HCl (Benadryl) 25 mg 1X PRN PRN IV ITCHING; Start 09/11/16 at 09:00; Stop 09/12/16 at 08:59; Status DC Diphenhydramine HCl (Benadryl) 25 mg 1X PRN PRN IV ITCHING; Start 09/11/16 at 09:00; Stop 09/12/16 at 08:59; Status DC Sodium Chloride (Normal Saline Flush) 10 ml 1X PRN PRN IV AP catheter pack; Start 09/11/16 at 09:00; Stop 09/12/16 at 08:59; Status DC Sodium Chloride (Normal Saline Flush) 10 ml 1X PRN PRN IV WATER CONSERVATION SPECIALIST catheter pack; Start 09/11/16 at 09:00; Stop 09/12/16 at 08:59; Status DC Labetalol HCl 10 mg 10 mg PRN Q1HR PRN IVP SBP > 180; Start 09/11/16 at 09:00; Stop 09/12/16 at 08:59; Status DC Sodium Chloride (Iv Sodium Chloride 0.9% 1000ml Bag) 1,000 ml @ 400 mls/hr Q2H30M PRN IV PATENCY; Start 09/11/16 at 08:50; Stop 09/11/16 at 20:49; Status DC Info (PHARMACY MONITORING -- do not chart) 1 each PRN DAILY PRN MC SEE COMMENTS ; Start 09/11/16 at 09:00 Info (PHARMACY MONITORING -- do not chart) 1 each PRN DAILY PRN MC SEE COMMENTS ; Start 09/11/16 at 09:00; Status UNV Sodium Cl/Sod Bicarb/Potass Cl/ PEG (Golytely) 4,000 ml 1X ONCE PO Last administered on 09/11/16t 17:13; Start 09/11/16 at 13:00; Stop 09/11/16 at 13:01 ; Status DC Fentanyl Citrate (Fentanyl 2ml Vial) 25 mcg PRN Q5MIN PRN IV MILD PAIN; Start 09/12/16 at 07:00; Stop 09/13/16 at 06:59; Status DC Fentanyl Citrate 50 mcg 50 mcg PRN Q5MIN PRN IV MODERATE PAIN; Start 09/12/16 at 07:00; Stop 09/13/16 at 06:59; Status DC Lactated Ringer's (Iv Lactated Ringers) 1,000 ml @ 0 mls/hr Q0M IV ; Start at 07:00; Stop 09/12/16 at 18:59; Status DC Lidocaine HCl 2 ml 1X PRN PRN ID IV START; Start 09/12/16 at 07:00; Stop at 06:59; Status DC Prochlorperazine Edisylate (Compazine) 5 mg PACU PRN PRN IV NAUSEA; Start 09/12 at 07:00; Stop 09/13/16 at 06:59; Status DC Pantoprazole Sodium 40 mg 40 mg DAILYAC IVP ; Start 09/13/16 at 07:30; Status UNV Magnesium Sulfate/ Dextrose 50 ml @ 25 mls/hr 1X ONCE IV ; Start 09/12/16 at 11 :30; Stop 09/12/16 at 13:29; Status DC Propofol 20 ml @ As Directed STK-MED ONCE IV ; Start 09/12/16 at 12:55; Stop at 12:56; Status DC Propofol (Diprivan) 20 ml @ As Directed STK-MED ONCE IV ; Start 09/12/16 at 12: 55; Stop 09/12/16 at 12:56; Status DC Lidocaine HCl (Lidocaine Pf 2% Vial) 5 ml STK-MED ONCE .ROUTE ; Start 09/12/16 at 12:55; Stop 09/12/16 at 12:56; Status DC Lorazepam (Ativan) 2 mg PRN Q4HRS PRN IV ANXIETY / AGITATION; Start 09/12/16 at 14:15 Lorazepam (Ativan) 2 mg Q4HRS PRN IV ANXIETY / AGITATION; Start 09/12/16 at 14: 15; Status UNV Haloperidol Lactate (Haldol) 2.5 mg PRN Q6HRS PRN IM AGITATION; Start 09/12/16 at 14:15 Haloperidol Lactate (Haldol) 2.5 mg PRN Q6HRS PRN IVP AGITATION; Start at 14:15 Lorazepam 2 mg 2 mg PRN Q4HRS PRN IM ANXIETY / AGITATION; Start 09/12/16 at 14: 30 Sodium Chloride (Iv Sodium Chloride 0.9% 1000ml Bag) 1,000 ml @ 1,000 mls/hr Q1H PRN IV hypotension; Start 09/13/16 at 08:39; Stop 09/13/16 at 14:38; Status DC Diphenhydramine HCl (Benadryl) 25 mg 1X PRN PRN IV ITCHING; Start 09/13/16 at 08:45; Stop 09/14/16 at 08:44; Status DC Diphenhydramine HCl (Benadryl) 25 mg 1X PRN PRN IV ITCHING; Start 09/13/16 at 08:45; Stop 09/14/16 at 08:44; Status DC Sodium Chloride (Normal Saline Flush) 10 ml 1X PRN PRN IV AP catheter pack; Start 09/13/16 at 08:45; Stop 09/14/16 at 08:44; Status DC Sodium Chloride (Normal Saline Flush) 10 ml 1X PRN PRN IV W[employer]SERV[employer]IST catheter pack; Start 09/13/16 at 08:45; Stop 09/14/16 at 08:44; Status DC Labetalol HCl (Normodyne) 10 mg PRN Q1HR PRN IVP SBP > 180; Start 09/13/16 at 08:45; Stop 09/14/16 at 08:44; Status DC Info (PHARMACY MONITORING -- do not chart) 1 each PRN DAILY PRN MC SEE COMMENTS ; Start 09/13/16 at 08:45; Status UNV Info (PHARMACY MONITORING -- do not chart) 1 each PRN DAILY PRN MC SEE COMMENTS ; Start 09/13/16 at 08:45; Status UNV Pantoprazole Sodium 40 mg 40 mg DAILYAC IVP Last administered on 09/16/16t 05: 57; Start 09/13/16 at 13:00 Sodium Chloride (Iv Sodium Chloride 0.9% 1000ml Bag) 1,000 ml @ 1,000 mls/hr Q1H PRN IV hypotension; Start 09/16/16 at 08:46; Stop 09/16/16 at 14:45 Diphenhydramine HCl (Benadryl) 25 mg 1X PRN PRN IV ITCHING; Start 09/16/16 at 09:00; Stop 09/17/16 at 08:59 Diphenhydramine HCl (Benadryl) 25 mg 1X PRN PRN IV ITCHING; Start 09/16/16 at 09:00; Stop 09/17/16 at 08:59 Sodium Chloride (Normal Saline Flush) 10 ml 1X PRN PRN IV AP catheter pack; Start 09/16/16 at 09:00; Stop 09/17/16 at 08:59 Sodium Chloride (Normal Saline Flush) 10 ml 1X PRN PRN IV W[employer]SERVATION [employer]IST catheter pack; Start 09/16/16 at 09:00; Stop 09/17/16 at 08:59 Info (PHARMACY MONITORING -- do not chart) 1 each PRN DAILY PRN MC SEE COMMENTS ; Start 09/16/16 at 09:00; Status UNV Info (PHARMACY MONITORING -- do not chart) 1 each PRN DAILY PRN MC SEE COMMENTS ; Start 09/16/16 at 09:00; Status UNV Active Scripts Active Reported [Mylanta] Tylenol (Acetaminophen) 325 Mg Tablet 1 Tab PO PRN Q4HRS Fleet Enema (Na Phos,M-B/Na Phos,Di-Ba) 133 Ml Enema 1 Each RC ONCE Dulcolax (Bisacodyl) 10 Mg Supp.rect 10 Mg RC PRN DAILY PRN Zofran Odt (Ondansetron) 8 Mg Tab.rapdis 1 Tab PO Q8HRS Nitrostat (Nitroglycerin) 0.4 Mg Tab.subl 1 Tab SL UD Cyclobenzaprine Hcl 10 Mg Tablet 1 Tab PO TID Zepatier 50-100 mg Tablet (Elbasvir/Grazoprevir) 1 Each Tablet 1 Each PO [PhosLo] Coreg (Carvedilol) 25 Mg Tablet 1 Tab PO BID Aspirin 81 Mg Tab.chew 1 Tab PO DAILY Allopurinol 100 Mg Tablet 1 Tab PO DAILY Ventolin Hfa Inhaler (Albuterol Sulfate) 18 Gm Hfa.aer.ad 2 Puff INH Q4HRS Nephplex Rx Tablet (Vit B Cmplx No3/Fa/C/Biot/Zinc) 1 Each Tablet 1 Each PO Senokot (Sennosides) 8.6 Mg Tablet 1 Tab PO BID Oxycontin (Oxycodone HCl) 10 Mg Tab.er.12h 10 Mg PO BID Glycolax (Polyethylene Glycol 3350) 119 Gm Powder 17 Gm PO UD Percocet 10-325 Mg Tablet (Oxycodone/Acetaminophen) 1 Each Tablet 1 Tab PO Q4- 6HRS Vitamin D3 (Cholecalciferol (Vitamin D3)) 1,000 Unit Tablet 1 Tab PO DAILY Advair 250-50 Diskus (Fluticasone/Salmeterol) 1 Each Disk.w.dev 1 Puff IH BID Ipratropium [place] 0.2 Mg/1 Ml Solution 1 Vial NEB QID Lidoderm (Lidocaine) 700 Mg Adh..patch 1 Patch TP DAILY Nortriptyline Hcl 25 Mg Capsule 1 Cap PO QHS Ciprofloxacin Hcl 250 Mg Tablet 1 Tab PO BID Warfarin Sodium 2 Mg Tablet 1.5 Mg PO DAILY Gabapentin 300 Mg Capsule 300 Mg PO TID Zoloft (Sertraline Hcl) 100 Mg Tablet 1 Tab PO DAILY Vitals/I & O Vital Sign - Last 24 Hours 09/15/16 09/15/16 09/15/16 09/15/16 12:00 12:27 12:34 13:27 Temp 98.0 98.0 Pulse 74 Resp 16 22 B/P 140/93 Pulse Ox 98 97 98 98 O2 Delivery Room Air Room Air Room Air Room Air 09/15/16 09/15/16 09/15/16 09/15/16 16:00 16:48 18:32 20:00 Temp 98.0 98.1 98.0 98.1 Pulse 74 74 70 Resp 20 22 B/P 116/81 118/83 95/72 Pulse Ox 98 98 O2 Delivery Room Air Room Air Room Air 09/15/16 09/15/16 09/15/16 09/15/16 20:00 20:22 20:23 21:45 Resp 8 Pulse Ox 98 98 O2 Delivery Room Air Room Air Room Air Room Air 09/16/16 09/16/16 09/16/16 09/16/16 00:00 01:45 01:45 01:45 Temp 97.8 97.8 Pulse 71 Resp 18 18 14 16 B/P 97/65 Pulse Ox 97 94 100 97 O2 Delivery Room Air Room Air Room Air Room Air O2 Flow Rate 2.0 09/16/16 09/16/16 04:00 08:19 Temp 97.6 97.6 Pulse 73 Resp 18 B/P 115/80 Pulse Ox 97 98 O2 Delivery Room Air Room Air Intake and Output 09/15/16 09/15/16 09/16/16 15:00 23:00 07:00 Intake Total 300 ml 510 ml Output Total 0 ml 0 ml Balance 300 ml 510 ml TANA ANDREW III DO Sep 16, 2016 10:19
--- NOTE | 2016-09-16 10:51 | PDOC ---
Renal-Progress Notes Subjective Notes Notes FEELING BETTER History of Present Illness Hx of present illness STABLE Vitals Vitals Vital Signs Date Time Temp Pulse Resp B/P Pulse Ox O2 Delivery O2 Flow Rate FiO2 09/16/16 08:19 98 Room Air 09/16/16 04:00 97.6 73 18 115/80 97.6 09/16/16 01:45 2.0 Weight Weight [ ] I.O. Intake and Output Intake and Output 09/16/16 06:59 Intake Total 810 ml Output Total 0 ml Balance 810 ml Intake Oral 810 ml Output Urine Total 0 ml Labs Labs Laboratory Tests Test 09/15/16 12:29 09/16/16 05:30 Glucose (Fingerstick) 101mg/dL (70-99) White Blood Count 7.6x10^3/uL (4.0-11.0) Red Blood Count 2.84x10^6/uL (3.50-5.40) Hemoglobin 7.9g/dL (12.0-15.5) Hematocrit 24.3% (36.0-47.0) Mean Corpuscular Volume 85fL (79-100) Mean Corpuscular Hemoglobin 28pg (25-35) Mean Corpuscular Hemoglobin Concent 33g/dL (31-37) Red Cell Distribution Width 16.4% (11.5-14.5) Platelet Count 275x10^3/uL (140-400) Neutrophils (%) (Auto) 56% (31-73) Lymphocytes (%) (Auto) 30% (24-48) Monocytes (%) (Auto) 10% (0-9) Eosinophils (%) (Auto) 3% (0-3) Basophils (%) (Auto) 1% (0-3) Neutrophils # (Auto) 4.2x10^3uL (1.8-7.7) Lymphocytes # (Auto) 2.3x10^3/uL (1.0-4.8) Monocytes # (Auto) 0.8x10^3/uL (0.0-1.1) Eosinophils # (Auto) 0.2x10^3/uL (0.0-0.7) Basophils # (Auto) 0.1x10^3/uL (0.0-0.2) Prothrombin Time 20.6SEC (11.7-14.0) Prothromb Time International Ratio 1.9 (0.8-1.1) Sodium Level 135mmol/L (136-145) Potassium Level 3.4mmol/L (3.5-5.1) Chloride Level 100mmol/L (98-107) Carbon Dioxide Level 28mmol/L (21-32) Anion Gap 7 (6-14) Blood Urea Nitrogen 24mg/dL (7-20) Creatinine 4.4mg/dL (0.6-1.0) Estimated GFR (Cockcroft-Gault) 12.4 Glucose Level 117mg/dL (70-99) Calcium Level 7.7mg/dL (8.5-10.1) Phosphorus Level 3.8mg/dL (2.6-4.7) Albumin 1.4g/dL (3.4-5.0) Review of Systems Constitutional: yes: alert, oriented, weakness Ears/Nose/Throat: Yes: no symptom reported Gastrointestional: Yes: melena Genitourinary: Yes: no symptom reported Skin: Yes no symptom reported Physical Exam General Appearance: no apparent distress Skin: warm Respiratory: bilateral CTA Heart: S1S2 Abdomen: soft, bowel sounds present Extremities: pulses present Neurology: alert, oriented Assessment Assessment IMP ANEMIA GI BLEED ESRD PLAN HD TODAY UF TO [facility] EVAL AND TX PT NOW AGREEABLE TO ENDOSCOPY SERVANDO PATTERSON MD Sep 16, 2016 10:51
[2016-09-16 12:00] VITALS: BP 124/78
[2016-09-16] MEDS: ALLOPURINOL 100 MG TABLET. PO SCH (12:46)
[2016-09-16] MEDS: GABAPENTIN 300 MG CAPSULE. PO SCH (12:46)
[2016-09-16] MEDS: SERTRALINE 50 MG TABLET. PO SCH (12:46)
[2016-09-16] MEDS: CARVEDILOL 12.5 MG TABLET PO SCH ×2 (12:47→17:00)
[2016-09-16] MEDS: LIDOCAINE (700MG/PATCH) PATCH. TP SCH (12:48)
[2016-09-16] MEDS: OXYCODONE/APAP 10/325 TABLET. PO PRN ×2 (15:19→22:29)
[2016-09-16 16:00] VITALS: BP 102/72
--- NOTE | 2016-09-16 18:18 | PDOC2 ---
PALLIATIVE CARE Palliative Care Note Palliative Care Consult requested by Dr. Madera to address code status and goals of care Diagnosis; ESRD on dialysis; anemia, GI Bleed;--no further bleeding; coagulopathy Patient alert and oriented. Able to verbalized medical condition, choice for care understanding her risk and benefits, and what her decisions are. She would like to continue with current aggressive care. Understands she has been confused some in this hospitalizations. Does not remember much about what she had said. Discussed AD. Patient does not have AD document and would like to complete one. States she would name her son Rubin Galvan II and her sister Diana to make decisions if she was unable to make her own decisions. She would like to remain a full code. Information shared with Chelsie STEPHENS. Plan: Full Aggressive Care Continue Dialysis Requests assistance to complete AD/- JORGE Guadalupe Sep 16, 2016 18:18
[2016-09-16 20:00] VITALS: BP 99/66
[2016-09-16] MEDS: DARBEPOETIN ALFA 60 MCG/0.3 ML DISP.SYRIN. SQ SCH (22:28)
[2016-09-16] MEDS: NORTRIPTYLINE 25 MG CAPSULE PO SCH (22:28)
[2016-09-17] VITALS (7 sets, daily range): BP systolic 102–147; BP diastolic 66–78
[2016-09-17] MEDS: ONDANSETRON ODT 4 MG TAB.RAPDIS PO SCH ×3 (05:55→20:51)
[2016-09-17 06:28] LABS: BASO % 0 % (0-3); EOS % 2 % (0-3); HEMOGLOBIN 7.7 g/dL (12.0-15.5); LYMPH # 2.3 x10^3/uL (1.0-4.8); LYMPH % 29 % (24-48); MEAN CORPUSCULAR HEMOGLOBIN 28 pg (25-35); MEAN CORPUSCULAR HGB CONC 32 g/dL (31-37); MEAN CORPUSCULAR VOLUME 85 fL (79-100); MONO % 11 % (0-9); NEUT % 58 % (31-73); PLATELET COUNT 268 x10^3/uL (140-400); RED BLOOD COUNT 2.81 x10^6/uL (3.50-5.40); RED CELL DISTRIBUTION WIDTH 16.7 % (11.5-14.5); WHITE BLOOD COUNT 7.9 x10^3/uL (4.0-11.0)
[2016-09-17 06:32] LABS: PROTHROMBIN TIME PATIENT 21.9 SEC (11.7-14.0)
[2016-09-17 06:42] LABS: ALBUMIN 1.3 g/dL (3.4-5.0); CALCIUM 7.7 mg/dL (8.5-10.1); CREATININE 3.1 mg/dL (0.6-1.0); GFR 18.5; PHOSPHORUS 2.4 mg/dL (2.6-4.7); POTASSIUM 3.7 mmol/L (3.5-5.1)
[2016-09-17] MEDS: BUDESONIDE 0.5 MG/2 ML NEBU NEB SCH ×2 (08:27→19:57)
[2016-09-17] MEDS: IPRATRPIUM/ALBUTEROL 0.5/2.5MG 3 ML NEBU. NEB SCH ×4 (08:27→20:00)
[2016-09-17] MEDS: OXYCODONE/APAP 10/325 TABLET. PO PRN ×2 (09:30→19:23)
[2016-09-17] MEDS: GABAPENTIN 300 MG CAPSULE. PO SCH (10:19)
[2016-09-17] MEDS: SERTRALINE 50 MG TABLET. PO SCH (10:20)
[2016-09-17] MEDS: CARVEDILOL 12.5 MG TABLET PO SCH ×2 (10:22→16:20)
[2016-09-17] MEDS: PANTOPRAZOLE 40 MG TABLET. PO SCH (10:22)
[2016-09-17] MEDS: OXYCODONE ER 10 MG TAB.ER.12H. PO SCH ×2 (10:23→20:51)
[2016-09-17] MEDS: ALLOPURINOL 100 MG TABLET. PO SCH (10:24)
[2016-09-17] MEDS: LIDOCAINE (700MG/PATCH) PATCH. TP SCH (10:27)
--- NOTE | 2016-09-17 10:37 | PDOC ---
Renal-Progress Notes Subjective Notes Notes NONE History of Present Illness Hx of present illness NO CHANGE Vitals Vitals Vital Signs Date Time Temp Pulse Resp B/P Pulse Ox O2 Delivery O2 Flow Rate FiO2 09/17/16 10:23 12 100 Room Air 09/17/16 10:22 82 116/82 09/17/16 04:00 97.0 97.0 Weight Weight [ ] I.O. Intake and Output Intake and Output 09/17/16 07:00 Intake Total 840 ml Output Total 200 ml Balance 640 ml Intake Oral 840 ml Output Urine Total 200 ml Labs Labs Laboratory Tests Test 09/17/16 06:00 White Blood Count 7.9x10^3/uL (4.0-11.0) Red Blood Count 2.81x10^6/uL (3.50-5.40) Hemoglobin 7.7g/dL (12.0-15.5) Hematocrit 24.0% (36.0-47.0) Mean Corpuscular Volume 85fL (79-100) Mean Corpuscular Hemoglobin 28pg (25-35) Mean Corpuscular Hemoglobin Concent 32g/dL (31-37) Red Cell Distribution Width 16.7% (11.5-14.5) Platelet Count 268x10^3/uL (140-400) Neutrophils (%) (Auto) 58% (31-73) Lymphocytes (%) (Auto) 29% (24-48) Monocytes (%) (Auto) 11% (0-9) Eosinophils (%) (Auto) 2% (0-3) Basophils (%) (Auto) 0% (0-3) Neutrophils # (Auto) 4.5x10^3uL (1.8-7.7) Lymphocytes # (Auto) 2.3x10^3/uL (1.0-4.8) Monocytes # (Auto) 0.9x10^3/uL (0.0-1.1) Eosinophils # (Auto) 0.2x10^3/uL (0.0-0.7) Basophils # (Auto) 0.0x10^3/uL (0.0-0.2) Prothrombin Time 21.9SEC (11.7-14.0) Prothromb Time International Ratio 2.0 (0.8-1.1) Sodium Level 138mmol/L (136-145) Potassium Level 3.7mmol/L (3.5-5.1) Chloride Level 101mmol/L (98-107) Carbon Dioxide Level 28mmol/L (21-32) Anion Gap 9 (6-14) Blood Urea Nitrogen 14mg/dL (7-20) Creatinine 3.1mg/dL (0.6-1.0) Estimated GFR (Cockcroft-Gault) 18.5 Glucose Level 115mg/dL (70-99) Calcium Level 7.7mg/dL (8.5-10.1) Phosphorus Level 2.4mg/dL (2.6-4.7) Albumin 1.3g/dL (3.4-5.0) Review of Systems Constitutional: yes: alert, oriented, weakness Ears/Nose/Throat: Yes: no symptom reported Gastrointestional: Yes: melena Genitourinary: Yes: no symptom reported Skin: Yes no symptom reported Physical Exam General Appearance: no apparent distress Skin: warm Respiratory: bilateral CTA Heart: S1S2 Abdomen: soft, bowel sounds present Extremities: pulses present Neurology: alert, oriented Assessment Assessment IMP ANEMIA GI BLEED ESRD PLAN HD TOMORROW ARAKIMBERLYP GI EVAL AND TX ETHIC CONSULT NOTED SERVANDO PATTERSON MD Sep 17, 2016 10:37
--- NOTE | 2016-09-17 11:06 | PDOC ---
Subjective: Subjective: Per pt - left hip/flank pain since PT/OT on Sun - worse with movement. Also some abd discomfort - LLQ, RUQ? Reviewed surg history - hysterectomy, tubal ligation, C section. Objective: Objective: Per RN - LLQ pain, has not had BM/dark stools, eating w/o issue. Vital Signs: Vital Signs Date Time Temp Pulse Resp B/P Pulse Ox O2 Delivery O2 Flow Rate FiO2 09/17/16 10:23 12 100 Room Air 09/17/16 10:22 82 116/82 09/17/16 04:00 97.0 97.0 Labs: Laboratory Tests Test 09/17/16 06:00 White Blood Count 7.9x10^3/uL Red Blood Count 2.81x10^6/uL Hemoglobin 7.7g/dL Hematocrit 24.0% Mean Corpuscular Volume 85fL Mean Corpuscular Hemoglobin 28pg Mean Corpuscular Hemoglobin Concent 32g/dL Red Cell Distribution Width 16.7% Platelet Count 268x10^3/uL Neutrophils (%) (Auto) 58% Lymphocytes (%) (Auto) 29% Monocytes (%) (Auto) 11% Eosinophils (%) (Auto) 2% Basophils (%) (Auto) 0% Neutrophils # (Auto) 4.5x10^3uL Lymphocytes # (Auto) 2.3x10^3/uL Monocytes # (Auto) 0.9x10^3/uL Eosinophils # (Auto) 0.2x10^3/uL Basophils # (Auto) 0.0x10^3/uL Prothrombin Time 21.9SEC Prothromb Time International Ratio 2.0 Sodium Level 138mmol/L Potassium Level 3.7mmol/L Chloride Level 101mmol/L Carbon Dioxide Level 28mmol/L Anion Gap 9 Blood Urea Nitrogen 14mg/dL Creatinine 3.1mg/dL Estimated GFR (Cockcroft-Gault) 18.5 Glucose Level 115mg/dL Calcium Level 7.7mg/dL Phosphorus Level 2.4mg/dL Albumin 1.3g/dL PE: GEN: NAD LUNGS: clear anteriorly HEART: RRR ABD: BS+, when RUQ palpated pt says "I feel gassy!", perhaps some LLQ tenderness - more to left hip/flank NEURO/PSYCH: A & O 3 A/P: Anemia -Hgb 7.7, last transfused 09/13, no ongoing dark stools -declined EGD/colonoscopy 09/12 - now agrees to EGD tomorrow -note INR 2 Abd pain/hip pain -onset after working w/ PT/OT over weekend, feels gassy -- EGD tomorrow ~noon for further eval of anemia. NPO at midnight. Continue PPI. Will check KUB. JORGE YANG Sep 17, 2016 11:06
--- NOTE | 2016-09-17 12:10 | RAD ---
Exam performed: X-ray abdomen KUB. Clinical Indication: Abdominal pain Date of Service: 09/17/16. Comparison: None available Findings: Supine radiograph of the abdomen and pelvis reveals no evidence of ileus or obstruction. Definite pathologic calcification or organomegaly is not identified. Hernia repair mesh seen in left upper and mid abdomen. The visualized osseous structures appear unremarkable. Impression: 1. No acute abnormality seen.
--- NOTE | 2016-09-17 14:38 | PDOC ---
PROGRESS NOTES Chief Complaint Chief Complaint 1. Acute blood loss anemia, GI bleed, 2. ESRD, 3. Coagulopathy, was on Coumadin for afib, 4. Hypertension 5. Asthma 6. Obesity 7. Back pain FU WITH GI, EGD tmr gi ppx INR still high today, repeat tmr, coumadin held History of Present Illness History of Present Illness Pt seen and examined this AM, pt sitting up in chair resting with NAD. no GIB since in hosp, hb stable, agree to do EGD VSS- All questions and concerns addressed and answered. Hgb at 7.7 INR still high at 2 Vitals Vitals Vital Signs Date Time Temp Pulse Resp B/P Pulse Ox O2 Delivery O2 Flow Rate FiO2 09/17/16 12:00 98.6 82 20 102/71 99 Room Air 98.6 Physical Exam General: Alert, Oriented X3, Cooperative, No acute distress Heart: Normal S1, Normal S2 Lungs: Clear Abdomen: Normal bowel sounds, Soft, No tenderness, No hepatosplenomegaly Extremities: No clubbing, No cyanosis Skin: No rashes, No significant lesion Labs LABS Laboratory Tests Test 09/17/16 06:00 White Blood Count 7.9x10^3/uL (4.0-11.0) Red Blood Count 2.81x10^6/uL (3.50-5.40) Hemoglobin 7.7g/dL (12.0-15.5) Hematocrit 24.0% (36.0-47.0) Mean Corpuscular Volume 85fL (79-100) Mean Corpuscular Hemoglobin 28pg (25-35) Mean Corpuscular Hemoglobin Concent 32g/dL (31-37) Red Cell Distribution Width 16.7% (11.5-14.5) Platelet Count 268x10^3/uL (140-400) Neutrophils (%) (Auto) 58% (31-73) Lymphocytes (%) (Auto) 29% (24-48) Monocytes (%) (Auto) 11% (0-9) Eosinophils (%) (Auto) 2% (0-3) Basophils (%) (Auto) 0% (0-3) Neutrophils # (Auto) 4.5x10^3uL (1.8-7.7) Lymphocytes # (Auto) 2.3x10^3/uL (1.0-4.8) Monocytes # (Auto) 0.9x10^3/uL (0.0-1.1) Eosinophils # (Auto) 0.2x10^3/uL (0.0-0.7) Basophils # (Auto) 0.0x10^3/uL (0.0-0.2) Prothrombin Time 21.9SEC (11.7-14.0) Prothromb Time International Ratio 2.0 (0.8-1.1) Sodium Level 138mmol/L (136-145) Potassium Level 3.7mmol/L (3.5-5.1) Chloride Level 101mmol/L (98-107) Carbon Dioxide Level 28mmol/L (21-32) Anion Gap 9 (6-14) Blood Urea Nitrogen 14mg/dL (7-20) Creatinine 3.1mg/dL (0.6-1.0) Estimated GFR (Cockcroft-Gault) 18.5 Glucose Level 115mg/dL (70-99) Calcium Level 7.7mg/dL (8.5-10.1) Phosphorus Level 2.4mg/dL (2.6-4.7) Albumin 1.3g/dL (3.4-5.0) Review of Systems Review of Systems no fever, chills, sob or chest pain Assessment and Plan Assessmemt and Plan Problems Medical Problems: (1) Anemia Status: Acute (2) Coagulopathy Status: Acute (3) Coumadin toxicity Status: Acute (4) Elevated INR (international normalized ratio) due to prior anticoagulant medication ingestion Status: Acute (5) ESRD on dialysis Status: Acute (6) GI bleed Status: Acute Problems: Comment Review of Relevant I have reviewed the following items christi (where applicable) has been applied. Labs Laboratory Tests Test 09/16/16 05:30 09/17/16 06:00 White Blood Count 7.6x10^3/uL (4.0-11.0) 7.9x10^3/uL (4.0-11.0) Red Blood Count 2.84x10^6/uL (3.50-5.40) 2.81x10^6/uL (3.50-5.40) Hemoglobin 7.9g/dL (12.0-15.5) 7.7g/dL (12.0-15.5) Hematocrit 24.3% (36.0-47.0) 24.0% (36.0-47.0) Mean Corpuscular Volume 85fL (79-100) 85fL (79-100) Mean Corpuscular Hemoglobin 28pg (25-35) 28pg (25-35) Mean Corpuscular Hemoglobin Concent 33g/dL (31-37) 32g/dL (31-37) Red Cell Distribution Width 16.4% (11.5-14.5) 16.7% (11.5-14.5) Platelet Count 275x10^3/uL (140-400) 268x10^3/uL (140-400) Neutrophils (%) (Auto) 56% (31-73) 58% (31-73) Lymphocytes (%) (Auto) 30% (24-48) 29% (24-48) Monocytes (%) (Auto) 10% (0-9) 11% (0-9) Eosinophils (%) (Auto) 3% (0-3) 2% (0-3) Basophils (%) (Auto) 1% (0-3) 0% (0-3) Neutrophils # (Auto) 4.2x10^3uL (1.8-7.7) 4.5x10^3uL (1.8-7.7) Lymphocytes # (Auto) 2.3x10^3/uL (1.0-4.8) 2.3x10^3/uL (1.0-4.8) Monocytes # (Auto) 0.8x10^3/uL (0.0-1.1) 0.9x10^3/uL (0.0-1.1) Eosinophils # (Auto) 0.2x10^3/uL (0.0-0.7) 0.2x10^3/uL (0.0-0.7) Basophils # (Auto) 0.1x10^3/uL (0.0-0.2) 0.0x10^3/uL (0.0-0.2) Prothrombin Time 20.6SEC (11.7-14.0) 21.9SEC (11.7-14.0) Prothromb Time International Ratio 1.9 (0.8-1.1) 2.0 (0.8-1.1) Sodium Level 135mmol/L (136-145) 138mmol/L (136-145) Potassium Level 3.4mmol/L (3.5-5.1) 3.7mmol/L (3.5-5.1) Chloride Level 100mmol/L (98-107) 101mmol/L (98-107) Carbon Dioxide Level 28mmol/L (21-32) 28mmol/L (21-32) Anion Gap 7 (6-14) 9 (6-14) Blood Urea Nitrogen 24mg/dL (7-20) 14mg/dL (7-20) Creatinine 4.4mg/dL (0.6-1.0) 3.1mg/dL (0.6-1.0) Estimated GFR (Cockcroft-Gault) 12.4 18.5 Glucose Level 117mg/dL (70-99) 115mg/dL (70-99) Calcium Level 7.7mg/dL (8.5-10.1) 7.7mg/dL (8.5-10.1) Phosphorus Level 3.8mg/dL (2.6-4.7) 2.4mg/dL (2.6-4.7) Albumin 1.4g/dL (3.4-5.0) 1.3g/dL (3.4-5.0) Laboratory Tests Test 09/17/16 06:00 White Blood Count 7.9x10^3/uL (4.0-11.0) Red Blood Count 2.81x10^6/uL (3.50-5.40) Hemoglobin 7.7g/dL (12.0-15.5) Hematocrit 24.0% (36.0-47.0) Mean Corpuscular Volume 85fL (79-100) Mean Corpuscular Hemoglobin 28pg (25-35) Mean Corpuscular Hemoglobin Concent 32g/dL (31-37) Red Cell Distribution Width 16.7% (11.5-14.5) Platelet Count 268x10^3/uL (140-400) Neutrophils (%) (Auto) 58% (31-73) Lymphocytes (%) (Auto) 29% (24-48) Monocytes (%) (Auto) 11% (0-9) Eosinophils (%) (Auto) 2% (0-3) Basophils (%) (Auto) 0% (0-3) Neutrophils # (Auto) 4.5x10^3uL (1.8-7.7) Lymphocytes # (Auto) 2.3x10^3/uL (1.0-4.8) Monocytes # (Auto) 0.9x10^3/uL (0.0-1.1) Eosinophils # (Auto) 0.2x10^3/uL (0.0-0.7) Basophils # (Auto) 0.0x10^3/uL (0.0-0.2) Prothrombin Time 21.9SEC (11.7-14.0) Prothromb Time International Ratio 2.0 (0.8-1.1) Sodium Level 138mmol/L (136-145) Potassium Level 3.7mmol/L (3.5-5.1) Chloride Level 101mmol/L (98-107) Carbon Dioxide Level 28mmol/L (21-32) Anion Gap 9 (6-14) Blood Urea Nitrogen 14mg/dL (7-20) Creatinine 3.1mg/dL (0.6-1.0) Estimated GFR (Cockcroft-Gault) 18.5 Glucose Level 115mg/dL (70-99) Calcium Level 7.7mg/dL (8.5-10.1) Phosphorus Level 2.4mg/dL (2.6-4.7) Albumin 1.3g/dL (3.4-5.0) Medications Current Medications Oxycodone/ Acetaminophen (Percocet 5/325) 1 tab 1X ONCE PO ; Start 09/09/16 at 19:00; Stop 09/09/16 at 19:01; Status DC Hydromorphone HCl 1 mg 1 mg 1X ONCE IV Last administered on 09/09/16 19:21; Start 09/09/16 at 19:15; Stop 09/09/16 at 19:16; Status DC Pantoprazole Sodium/Sodium Chloride (Protonix Iv/Iv Sodium Chloride 0.9% 100ml) 100 ml @ 10 mls/hr 1X ONCE IV Last administered on 09/09/16 19:51; Start at 19:30; Stop 09/10/16 at 05:29; Status DC Ondansetron HCl 4 mg 4 mg PRN Q8HRS PRN IV NAUSEA/VOMITING Last administered on 09/09/16 19:51; Start 09/09/16 at 19:30; Stop 09/10/16 at 19:29; Status DC Sodium Chloride (Iv Sodium Chloride 0.9% 1000ml Bag) 1,000 ml @ 100 mls/hr Q10H IV Last administered on 09/09/16 19:51; Start 09/09/16 at 19:30; Stop at 06:00; Status DC Acetaminophen (Tylenol) 650 mg PRN Q4HRS PRN PO FEVER Last administered on 09/09 19:52; Start 09/09/16 at 19:30; Stop 09/10/16 at 19:29; Status DC Multi-Ingredient Mouthwash/Gargle 15 ml 15 ml 1X ONCE SWSW Last administered on 09/09/16 23:41; Start 09/09/16 at 23:30; Stop 09/09/16 at 23:31; Status DC Phytonadione/ Sodium Chloride (Vitamin K/Iv Sodium Chloride 0.9% 50ml) 51 ml @ 102 mls/hr 1X ONCE IV Last administered on 09/10/16 02:07; Start 09/10/16 at 00:00; Stop 09/10/16 at 00:29; Status DC Acetaminophen (Tylenol) 325 mg PRN Q4HRS PO ; Start 09/09/16 at 23:30; Stop at 23:30; Status DC Allopurinol (Zyloprim) 100 mg DAILY PO Last administered on 09/17/16 10:24; Start 09/10/16 at 09:00 Bisacodyl (Dulcolax Supp) 10 mg PRN DAILY PRN RC CONSTIPATION; Start 09/09/16 at 23:30 Cyclobenzaprine HCl (Flexeril) 10 mg PRN TID PRN PO back pain Last administered on 09/15/16 00:44; Start 09/09/16 at 23:30 Gabapentin (Neurontin) 300 mg DAILY PO Last administered on 09/17/16 10:19; Start 09/10/16 at 09:00 Ipratropium [place] (Atrovent) 0.2 mg QID NEB ; Start 09/10/16 at 09:00; Status UNV Lidocaine (Lidoderm) 1 patch DAILY TP Last administered on 09/17/16 10:27; Start 09/10/16 at 09:00 Nortriptyline HCl (Pamelor) 25 mg QHS PO Last administered on 09/16/16 22:28; Start 09/10/16 at 21:00 Oxycodone HCl (Oxycontin) 10 mg BID PO Last administered on 09/17/16 10:23; Start 09/10/16 at 09:00 Oxycodone/ Acetaminophen (Percocet 10/325) 1 tab PRN Q4HRS PRN PO SEVERE PAIN Last administered on 09/17/16 09:30; Start 09/09/16 at 23:30 Non-Formulary Medication 2 puff Q4HRS INH FOR ASTHMA; Start 09/10/16 at 00:00; Status UNV Carvedilol (Coreg) 25 mg BIDWMEALS PO Last administered on 09/17/16 10:22; Start 09/10/16 at 08:00 Non-Formulary Medication 1 puff BID IH ; Start 09/10/16 at 09:00; Status UNV Ondansetron HCl (Zofran Odt) 8 mg Q8HRS PO Last administered on 09/17/16 05:55 ; Start 09/10/16 at 06:00 Sertraline HCl (Zoloft) 100 mg DAILY PO Last administered on 09/17/16 10:20; Start 09/10/16 at 09:00 Labetalol HCl (Normodyne) 20 mg PRN Q2HR PRN IVP HYPERTENSION, SEE COMMENTS Last administered on 09/13/16 00:17; Start 09/09/16 at 23:30 Albuterol/ Ipratropium (Duoneb) 3 ml RTQID NEB Last administered on 09/17/16 11:26; Start 09/10/16 at 08:00 Budesonide (Pulmicort) 0.5 mg RTBID NEB Last administered on 09/17/16 08:27; Start 09/10/16 at 08:00 Albuterol Sulfate 2.5 mg 2.5 mg PRN Q4HRS PRN NEB SHORTNESS OF BREATH; Start at 23:30 Pantoprazole Sodium 80 mg/ Sodium Chloride 100 ml @ 10 mls/hr Q10H IV Last administered on 09/13/16t 07:51; Start 09/10/16 at 10:00; Stop 09/13/16 at 09:59 ; Status DC Magnesium Sulfate/ Dextrose 50 ml @ 25 mls/hr PRN DAILY PRN IV for Mag < 1.7 on am labs; Start 09/10/16 at 10:00 Sodium Chloride (Iv Sodium Chloride 0.9% 1000ml Bag) 1,000 ml @ 1,000 mls/hr Q1H PRN IV hypotension; Start 09/11/16 at 08:50; Stop 09/11/16 at 14:49; Status DC Diphenhydramine HCl (Benadryl) 25 mg 1X PRN PRN IV ITCHING; Start 09/11/16 at 09:00; Stop 09/12/16 at 08:59; Status DC Diphenhydramine HCl (Benadryl) 25 mg 1X PRN PRN IV ITCHING; Start 09/11/16 at 09:00; Stop 09/12/16 at 08:59; Status DC Sodium Chloride (Normal Saline Flush) 10 ml 1X PRN PRN IV AP catheter pack; Start 09/11/16 at 09:00; Stop 09/12/16 at 08:59; Status DC Sodium Chloride (Normal Saline Flush) 10 ml 1X PRN PRN IV [employer] catheter pack; Start 09/11/16 at 09:00; Stop 09/12/16 at 08:59; Status DC Labetalol HCl 10 mg 10 mg PRN Q1HR PRN IVP SBP > 180; Start 09/11/16 at 09:00; Stop 09/12/16 at 08:59; Status DC Sodium Chloride (Iv Sodium Chloride 0.9% 1000ml Bag) 1,000 ml @ 400 mls/hr Q2H30M PRN IV PATENCY; Start 09/11/16 at 08:50; Stop 09/11/16 at 20:49; Status DC Info (PHARMACY MONITORING -- do not chart) 1 each PRN DAILY PRN MC SEE COMMENTS ; Start 09/11/16 at 09:00 Info (PHARMACY MONITORING -- do not chart) 1 each PRN DAILY PRN MC SEE COMMENTS ; Start 09/11/16 at 09:00; Status UNV Sodium Cl/Sod Bicarb/Potass Cl/ PEG (Golytely) 4,000 ml 1X ONCE PO Last administered on 09/11/16t 17:13; Start 09/11/16 at 13:00; Stop 09/11/16 at 13:01 ; Status DC Fentanyl Citrate (Fentanyl 2ml Vial) 25 mcg PRN Q5MIN PRN IV MILD PAIN; Start 09/12/16 at 07:00; Stop 09/13/16 at 06:59; Status DC Fentanyl Citrate 50 mcg 50 mcg PRN Q5MIN PRN IV MODERATE PAIN; Start 09/12/16 at 07:00; Stop 09/13/16 at 06:59; Status DC Lactated Ringer's (Iv Lactated Ringers) 1,000 ml @ 0 mls/hr Q0M IV ; Start at 07:00; Stop 09/12/16 at 18:59; Status DC Lidocaine HCl 2 ml 1X PRN PRN ID IV START; Start 09/12/16 at 07:00; Stop at 06:59; Status DC Prochlorperazine Edisylate (Compazine) 5 mg PACU PRN PRN IV NAUSEA; Start 09/12 at 07:00; Stop 09/13/16 at 06:59; Status DC Pantoprazole Sodium 40 mg 40 mg DAILYAC IVP ; Start 09/13/16 at 07:30; Status UNV Magnesium Sulfate/ Dextrose 50 ml @ 25 mls/hr 1X ONCE IV ; Start 09/12/16 at 11 :30; Stop 09/12/16 at 13:29; Status DC Propofol 20 ml @ As Directed STK-MED ONCE IV ; Start 09/12/16 at 12:55; Stop at 12:56; Status DC Propofol (Diprivan) 20 ml @ As Directed STK-MED ONCE IV ; Start 09/12/16 at 12: 55; Stop 09/12/16 at 12:56; Status DC Lidocaine HCl (Lidocaine Pf 2% Vial) 5 ml STK-MED ONCE .ROUTE ; Start 09/12/16 at 12:55; Stop 09/12/16 at 12:56; Status DC Lorazepam (Ativan) 2 mg PRN Q4HRS PRN IV ANXIETY / AGITATION; Start 09/12/16 at 14:15 Lorazepam (Ativan) 2 mg Q4HRS PRN IV ANXIETY / AGITATION; Start 09/12/16 at 14: 15; Status UNV Haloperidol Lactate (Haldol) 2.5 mg PRN Q6HRS PRN IM AGITATION; Start 09/12/16 at 14:15 Haloperidol Lactate (Haldol) 2.5 mg PRN Q6HRS PRN IVP AGITATION; Start at 14:15 Lorazepam 2 mg 2 mg PRN Q4HRS PRN IM ANXIETY / AGITATION; Start 09/12/16 at 14: 30 Sodium Chloride (Iv Sodium Chloride 0.9% 1000ml Bag) 1,000 ml @ 1,000 mls/hr Q1H PRN IV hypotension; Start 09/13/16 at 08:39; Stop 09/13/16 at 14:38; Status DC Diphenhydramine HCl (Benadryl) 25 mg 1X PRN PRN IV ITCHING; Start 09/13/16 at 08:45; Stop 09/14/16 at 08:44; Status DC Diphenhydramine HCl (Benadryl) 25 mg 1X PRN PRN IV ITCHING; Start 09/13/16 at 08:45; Stop 09/14/16 at 08:44; Status DC Sodium Chloride (Normal Saline Flush) 10 ml 1X PRN PRN IV AP catheter pack; Start 09/13/16 at 08:45; Stop 09/14/16 at 08:44; Status DC Sodium Chloride (Normal Saline Flush) 10 ml 1X PRN PRN IV [employer] catheter pack; Start 09/13/16 at 08:45; Stop 09/14/16 at 08:44; Status DC Labetalol HCl (Normodyne) 10 mg PRN Q1HR PRN IVP SBP > 180; Start 09/13/16 at 08:45; Stop 09/14/16 at 08:44; Status DC Info (PHARMACY MONITORING -- do not chart) 1 each PRN DAILY PRN MC SEE COMMENTS ; Start 09/13/16 at 08:45; Status UNV Info (PHARMACY MONITORING -- do not chart) 1 each PRN DAILY PRN MC SEE COMMENTS ; Start 09/13/16 at 08:45; Status UNV Pantoprazole Sodium 40 mg 40 mg DAILYAC IVP Last administered on 09/16/16 05: 57; Start 09/13/16 at 13:00; Stop 09/17/16 at 10:02; Status DC Sodium Chloride (Iv Sodium Chloride 0.9% 1000ml Bag) 1,000 ml @ 1,000 mls/hr Q1H PRN IV hypotension; Start 09/16/16 at 08:46; Stop 09/16/16 at 14:45; Status DC Diphenhydramine HCl (Benadryl) 25 mg 1X PRN PRN IV ITCHING; Start 09/16/16 at 09:00; Stop 09/17/16 at 08:59; Status DC Diphenhydramine HCl (Benadryl) 25 mg 1X PRN PRN IV ITCHING; Start 09/16/16 at 09:00; Stop 09/17/16 at 08:59; Status DC Sodium Chloride (Normal Saline Flush) 10 ml 1X PRN PRN IV AP catheter pack; Start 09/16/16 at 09:00; Stop 09/17/16 at 08:59; Status DC Sodium Chloride (Normal Saline Flush) 10 ml 1X PRN PRN IV [employer] catheter pack; Start 09/16/16 at 09:00; Stop 09/17/16 at 08:59; Status DC Info (PHARMACY MONITORING -- do not chart) 1 each PRN DAILY PRN MC SEE COMMENTS ; Start 09/16/16 at 09:00; Status UNV Info (PHARMACY MONITORING -- do not chart) 1 each PRN DAILY PRN MC SEE COMMENTS ; Start 09/16/16 at 09:00; Status UNV Darbepoetin Ernst (Aranesp) 60 mcg WEEKLYHS SQ Last administered on 09/16/16 22 :28; Start 09/16/16 at 21:00 Pantoprazole Sodium (Protonix) 40 mg DAILYAC PO Last administered on 09/17/16 10:22; Start 09/17/16 at 10:02 Active Scripts Active Reported [Mylanta] Tylenol (Acetaminophen) 325 Mg Tablet 1 Tab PO PRN Q4HRS Fleet Enema (Na Phos,M-B/Na Phos,Di-Ba) 133 Ml Enema 1 Each RC ONCE Dulcolax (Bisacodyl) 10 Mg Supp.rect 10 Mg RC PRN DAILY PRN Zofran Odt (Ondansetron) 8 Mg Tab.rapdis 1 Tab PO Q8HRS Nitrostat (Nitroglycerin) 0.4 Mg Tab.subl 1 Tab SL UD Cyclobenzaprine Hcl 10 Mg Tablet 1 Tab PO TID Zepatier 50-100 mg Tablet (Elbasvir/Grazoprevir) 1 Each Tablet 1 Each PO [PhosLo] Coreg (Carvedilol) 25 Mg Tablet 1 Tab PO BID Aspirin 81 Mg Tab.chew 1 Tab PO DAILY Allopurinol 100 Mg Tablet 1 Tab PO DAILY Ventolin Hfa Inhaler (Albuterol Sulfate) 18 Gm Hfa.aer.ad 2 Puff INH Q4HRS Nephplex Rx Tablet (Vit B Cmplx No3/Fa/C/Biot/Zinc) 1 Each Tablet 1 Each PO Senokot (Sennosides) 8.6 Mg Tablet 1 Tab PO BID Oxycontin (Oxycodone HCl) 10 Mg Tab.er.12h 10 Mg PO BID Glycolax (Polyethylene Glycol 3350) 119 Gm Powder 17 Gm PO UD Percocet 10-325 Mg Tablet (Oxycodone/Acetaminophen) 1 Each Tablet 1 Tab PO Q4- 6HRS Vitamin D3 (Cholecalciferol (Vitamin D3)) 1,000 Unit Tablet 1 Tab PO DAILY Advair 250-50 Diskus (Fluticasone/Salmeterol) 1 Each Disk.w.dev 1 Puff IH BID Ipratropium [place] 0.2 Mg/1 Ml Solution 1 Vial NEB QID Lidoderm (Lidocaine) 700 Mg Adh..patch 1 Patch TP DAILY Nortriptyline Hcl 25 Mg Capsule 1 Cap PO QHS Ciprofloxacin Hcl 250 Mg Tablet 1 Tab PO BID Warfarin Sodium 2 Mg Tablet 1.5 Mg PO DAILY Gabapentin 300 Mg Capsule 300 Mg PO TID Zoloft (Sertraline Hcl) 100 Mg Tablet 1 Tab PO DAILY Vitals/I & O Vital Sign - Last 24 Hours 09/16/16 09/16/16 09/16/16 09/16/16 15:19 15:41 16:00 17:00 Temp 98.0 98.0 Pulse 88 88 Resp 15 21 B/P 102/72 99/66 Pulse Ox 99 100 98 O2 Delivery Room Air Room Air Room Air 09/16/16 09/16/16 09/16/16 09/16/16 19:40 20:00 20:00 22:29 Temp 98.0 98.0 Pulse 86 Resp 16 15 B/P 99/66 Pulse Ox 98 99 99 O2 Delivery Room Air Room Air Room Air Room Air 09/17/16 09/17/16 09/17/16 09/17/16 00:00 04:00 08:00 08:30 Temp 97.8 97.0 98.3 97.8 97.0 98.3 Pulse 81 86 82 Resp 12 12 18 B/P 106/66 104/71 107/76 Pulse Ox 98 99 99 98 O2 Delivery Room Air Room Air Room Air Room Air 09/17/16 09/17/16 09/17/16 09/17/16 09:30 10:22 10:23 10:30 Pulse 82 Resp 25 12 16 B/P 116/82 Pulse Ox 100 100 100 O2 Delivery Room Air Room Air Room Air 09/17/16 09/17/16 11:27 12:00 Temp 98.6 98.6 Pulse 82 Resp 20 B/P 102/71 Pulse Ox 99 O2 Delivery Room Air Room Air Intake and Output 09/16/16 09/16/16 09/17/16 15:00 23:00 07:00 Intake Total 480 ml 360 ml Output Total 200 ml Balance 480 ml 160 ml ADRIANA WEST MD Sep 17, 2016 14:38
[2016-09-17] MEDS: NORTRIPTYLINE 25 MG CAPSULE PO SCH (20:51)
[2016-09-18] MEDS: ONDANSETRON ODT 4 MG TAB.RAPDIS PO SCH ×3 (01:51→22:00)
[2016-09-18] MEDS: OXYCODONE/APAP 10/325 TABLET. PO PRN ×3 (02:31→19:56)
[2016-09-18 03:33] VITALS: BP 148/82
[2016-09-18 06:17] LABS: BASO # 0.1 x10^3/uL (0.0-0.2); BASO % 1 % (0-3); EOS % 2 % (0-3); HEMATOCRIT 24.1 % (36.0-47.0); HEMOGLOBIN 7.8 g/dL (12.0-15.5); LYMPH # 2.7 x10^3/uL (1.0-4.8); LYMPH % 30 % (24-48); MEAN CORPUSCULAR HEMOGLOBIN 27 pg (25-35); MEAN CORPUSCULAR HGB CONC 32 g/dL (31-37); MEAN CORPUSCULAR VOLUME 84 fL (79-100); MONO % 8 % (0-9); NEUT % 59 % (31-73); PLATELET COUNT 312 x10^3/uL (140-400); RED BLOOD COUNT 2.89 x10^6/uL (3.50-5.40); RED CELL DISTRIBUTION WIDTH 16.7 % (11.5-14.5); WHITE BLOOD COUNT 9.1 x10^3/uL (4.0-11.0)
[2016-09-18] MEDS ORDERED: FENTANYL PF 100 MCG/2 ML VIAL. IV PRN ×2 (07:00)
[2016-09-18] MEDS ORDERED: LIDOCAINE 1% 1 ML SYRINGE. ID PRN (07:00)
[2016-09-18] MEDS ORDERED: PROCHLORPERAZINE 10 MG/2 ML VIAL. IV PRN (07:00)
[2016-09-18] MEDS ORDERED: IV RINGERS,LACTATED 1000ML 1,000 ML IV SCH (07:00)
[2016-09-18] MEDS: PANTOPRAZOLE 40 MG TABLET. PO SCH (07:22)
[2016-09-18] MEDS: OXYCODONE ER 10 MG TAB.ER.12H. PO SCH ×3 (07:22→20:44)
[2016-09-18] MEDS: CARVEDILOL 12.5 MG TABLET PO SCH ×2 (07:22→16:27)
[2016-09-18] MEDS: GABAPENTIN 300 MG CAPSULE. PO SCH ×2 (07:22→12:48)
[2016-09-18] MEDS: SERTRALINE 50 MG TABLET. PO SCH ×2 (07:23→09:00)
[2016-09-18] MEDS: ALLOPURINOL 100 MG TABLET. PO SCH (07:23)
[2016-09-18] MEDS: IPRATRPIUM/ALBUTEROL 0.5/2.5MG 3 ML NEBU. NEB SCH ×4 (07:34→19:30)
[2016-09-18] MEDS: BUDESONIDE 0.5 MG/2 ML NEBU NEB SCH ×2 (07:34→19:30)
[2016-09-18] MEDS: LIDOCAINE (700MG/PATCH) PATCH. TP SCH (07:47)
[2016-09-18 07:53] VITALS: BP 155/80
[2016-09-18] MEDS ORDERED: DEXTROSE 50% 25 GM / 50ML DISP.SYRIN. IV ONE (08:19)
[2016-09-18 09:20] LABS: CALCIUM 7.6 mg/dL (8.5-10.1); CREATININE 4.3 mg/dL (0.6-1.0); GFR 12.7; POTASSIUM 3.6 mmol/L (3.5-5.1)
[2016-09-18 09:21] LABS: INR 1.9 (0.8-1.1); PROTHROMBIN TIME PATIENT 20.6 SEC (11.7-14.0)
--- NOTE | 2016-09-18 10:50 | PDOC ---
Renal-Progress Notes Subjective Notes Notes NONE History of Present Illness Hx of present illness STABLE Vitals Vitals Vital Signs Date Time Temp Pulse Resp B/P Pulse Ox O2 Delivery O2 Flow Rate FiO2 09/18/16 07:53 98.3 77 19 155/80 97 Room Air 98.3 Weight Weight [ ] I.O. Intake and Output Intake and Output 09/18/16 07:00 Intake Total 640 ml Output Total 300 ml Balance 340 ml Intake Oral 640 ml Output Urine Total 300 ml Labs Labs Laboratory Tests Test 09/17/16 16:12 09/17/16 20:36 09/18/16 05:50 09/18/16 07:57 Glucose (Fingerstick) 122mg/dL (70-99) 118mg/dL (70-99) 75mg/dL (70-99) White Blood Count 9.1x10^3/uL (4.0-11.0) Red Blood Count 2.89x10^6/uL (3.50-5.40) Hemoglobin 7.8g/dL (12.0-15.5) Hematocrit 24.1% (36.0-47.0) Mean Corpuscular Volume 84fL (79-100) Mean Corpuscular Hemoglobin 27pg (25-35) Mean Corpuscular Hemoglobin Concent 32g/dL (31-37) Red Cell Distribution Width 16.7% (11.5-14.5) Platelet Count 312x10^3/uL (140-400) Neutrophils (%) (Auto) 59% (31-73) Lymphocytes (%) (Auto) 30% (24-48) Monocytes (%) (Auto) 8% (0-9) Eosinophils (%) (Auto) 2% (0-3) Basophils (%) (Auto) 1% (0-3) Neutrophils # (Auto) 5.3x10^3uL (1.8-7.7) Lymphocytes # (Auto) 2.7x10^3/uL (1.0-4.8) Monocytes # (Auto) 0.7x10^3/uL (0.0-1.1) Eosinophils # (Auto) 0.2x10^3/uL (0.0-0.7) Basophils # (Auto) 0.1x10^3/uL (0.0-0.2) Test 09/18/16 08:45 3/1/17 08:48 09/18/16 08:50 Sodium Level 134mmol/L (136-145) Potassium Level 3.6mmol/L (3.5-5.1) Chloride Level 99mmol/L (98-107) Carbon Dioxide Level 28mmol/L (21-32) Anion Gap 7 (6-14) Blood Urea Nitrogen 23mg/dL (7-20) Creatinine 4.3mg/dL (0.6-1.0) Estimated GFR (Cockcroft-Gault) 12.7 Glucose Level 135mg/dL (70-99) Calcium Level 7.6mg/dL (8.5-10.1) Glucose (Fingerstick) 123mg/dL (70-99) Prothrombin Time 20.6SEC (11.7-14.0) Prothromb Time International Ratio 1.9 (0.8-1.1) Review of Systems Constitutional: yes: alert, oriented, weakness Ears/Nose/Throat: Yes: no symptom reported Gastrointestional: Yes: melena Genitourinary: Yes: no symptom reported Skin: Yes no symptom reported Physical Exam General Appearance: no apparent distress Skin: warm Respiratory: bilateral CTA Heart: S1S2 Abdomen: soft, bowel sounds present Extremities: pulses present Neurology: alert, oriented Assessment Assessment IMP ANEMIA GI BLEED ESRD PLAN HD TODAY SERVANDO CHAVES MD Sep 18, 2016 10:50
[2016-09-18] MEDS ORDERED: LIDOCAINE 2% PF Vial for OR 5 ML VIAL. ONE (11:13)
[2016-09-18] MEDS ORDERED: PROPOFOL 20 ML IV ONE (11:13)
[2016-09-18] MEDS ORDERED: IV NORMAL SALINE 1000ML BAG 1,000 ML IV ONE (11:30)
--- NOTE | 2016-09-18 12:19 | PDOC4 ---
Operative Note Operative Note EGD Meds propofol per anesthesia Pre-op dx iron deficiency anemia Post-op non-erosive gastritis Plan advance diet as tolerated- colonoscopy at [facility] last year was normal per patient serial cbcs VERÓNICA JAMESON MD Sep 18, 2016 12:19
[2016-09-18] MEDS ORDERED: IV NORMAL SALINE 1000ML BAG 1,000 ML IV PRN ×2 (13:47)
[2016-09-18] MEDS ORDERED: DIPHENHYDRAMINE 50 MG/ML VIAL IV PRN ×2 (14:00)
[2016-09-18] MEDS ORDERED: ACETAMINOPHEN 500 MG TABLET PO PRN (14:00)
[2016-09-18] MEDS ORDERED: DIALYSIS PATIENT. MC PRN (14:00)
[2016-09-18] MEDS ORDERED: LABETALOL 20 MG/4 ML DISP.SYRIN. IVP PRN (14:00)
--- NOTE | 2016-09-18 14:57 | PDOC ---
PROGRESS NOTES Chief Complaint Chief Complaint 1. Acute blood loss anemia, GI bleed, unclear source. 2. ESRD, on HD 3. INR 1.9, Off coumadin. 4. Hypertension 5. Asthma 6. Obesity 7. Back pain Plan EGD today, colonoscopy Normal per pt, last year hold coumarin monitor hemoglobin PT/OT HD History of Present Illness History of Present Illness seen after EGD NO FEVER NO GI BLEEDING. Vitals Vitals Vital Signs Date Time Temp Pulse Resp B/P Pulse Ox O2 Delivery O2 Flow Rate FiO2 09/18/16 13:37 20 97 Room Air 09/18/16 12:48 2.0 09/18/16 12:28 84 134/78 09/18/16 11:21 98.2 98.2 Physical Exam General: Alert, Oriented X3, Cooperative, No acute distress Heart: Normal S1, Normal S2 Lungs: Clear Abdomen: Normal bowel sounds, Soft, No tenderness, No hepatosplenomegaly Extremities: No clubbing, No cyanosis Skin: No rashes, No significant lesion Labs LABS Laboratory Tests Test 09/17/16 16:12 09/17/16 20:36 09/18/16 05:50 09/18/16 07:57 Glucose (Fingerstick) 122mg/dL (70-99) 118mg/dL (70-99) 75mg/dL (70-99) White Blood Count 9.1x10^3/uL (4.0-11.0) Red Blood Count 2.89x10^6/uL (3.50-5.40) Hemoglobin 7.8g/dL (12.0-15.5) Hematocrit 24.1% (36.0-47.0) Mean Corpuscular Volume 84fL (79-100) Mean Corpuscular Hemoglobin 27pg (25-35) Mean Corpuscular Hemoglobin Concent 32g/dL (31-37) Red Cell Distribution Width 16.7% (11.5-14.5) Platelet Count 312x10^3/uL (140-400) Neutrophils (%) (Auto) 59% (31-73) Lymphocytes (%) (Auto) 30% (24-48) Monocytes (%) (Auto) 8% (0-9) Eosinophils (%) (Auto) 2% (0-3) Basophils (%) (Auto) 1% (0-3) Neutrophils # (Auto) 5.3x10^3uL (1.8-7.7) Lymphocytes # (Auto) 2.7x10^3/uL (1.0-4.8) Monocytes # (Auto) 0.7x10^3/uL (0.0-1.1) Eosinophils # (Auto) 0.2x10^3/uL (0.0-0.7) Basophils # (Auto) 0.1x10^3/uL (0.0-0.2) Test 09/18/16 08:45 09/18/16 08:48 09/18/16 08:50 Sodium Level 134mmol/L (136-145) Potassium Level 3.6mmol/L (3.5-5.1) Chloride Level 99mmol/L (98-107) Carbon Dioxide Level 28mmol/L (21-32) Anion Gap 7 (6-14) Blood Urea Nitrogen 23mg/dL (7-20) Creatinine 4.3mg/dL (0.6-1.0) Estimated GFR (Cockcroft-Gault) 12.7 Glucose Level 135mg/dL (70-99) Calcium Level 7.6mg/dL (8.5-10.1) Glucose (Fingerstick) 123mg/dL (70-99) Prothrombin Time 20.6SEC (11.7-14.0) Prothromb Time International Ratio 1.9 (0.8-1.1) Assessment and Plan Assessmemt and Plan Problems Medical Problems: (1) Anemia Status: Acute (2) Coagulopathy Status: Acute (3) Coumadin toxicity Status: Acute (4) Elevated INR (international normalized ratio) due to prior anticoagulant medication ingestion Status: Acute (5) ESRD on dialysis Status: Acute (6) GI bleed Status: Acute Problems: Comment Review of Relevant I have reviewed the following items christi (where applicable) has been applied. Labs Laboratory Tests Test 09/17/16 06:00 09/17/16 16:12 09/17/16 20:36 09/18/16 05:50 White Blood Count 7.9x10^3/uL (4.0-11.0) 9.1x10^3/uL (4.0-11.0) Red Blood Count 2.81x10^6/uL (3.50-5.40) 2.89x10^6/uL (3.50-5.40) Hemoglobin 7.7g/dL (12.0-15.5) 7.8g/dL (12.0-15.5) Hematocrit 24.0% (36.0-47.0) 24.1% (36.0-47.0) Mean Corpuscular Volume 85fL (79-100) 84fL (79-100) Mean Corpuscular Hemoglobin 28pg (25-35) 27pg (25-35) Mean Corpuscular Hemoglobin Concent 32g/dL (31-37) 32g/dL (31-37) Red Cell Distribution Width 16.7% (11.5-14.5) 16.7% (11.5-14.5) Platelet Count 268x10^3/uL (140-400) 312x10^3/uL (140-400) Neutrophils (%) (Auto) 58% (31-73) 59% (31-73) Lymphocytes (%) (Auto) 29% (24-48) 30% (24-48) Monocytes (%) (Auto) 11% (0-9) 8% (0-9) Eosinophils (%) (Auto) 2% (0-3) 2% (0-3) Basophils (%) (Auto) 0% (0-3) 1% (0-3) Neutrophils # (Auto) 4.5x10^3uL (1.8-7.7) 5.3x10^3uL (1.8-7.7) Lymphocytes # (Auto) 2.3x10^3/uL (1.0-4.8) 2.7x10^3/uL (1.0-4.8) Monocytes # (Auto) 0.9x10^3/uL (0.0-1.1) 0.7x10^3/uL (0.0-1.1) Eosinophils # (Auto) 0.2x10^3/uL (0.0-0.7) 0.2x10^3/uL (0.0-0.7) Basophils # (Auto) 0.0x10^3/uL (0.0-0.2) 0.1x10^3/uL (0.0-0.2) Prothrombin Time 21.9SEC (11.7-14.0) Prothromb Time International Ratio 2.0 (0.8-1.1) Sodium Level 138mmol/L (136-145) Potassium Level 3.7mmol/L (3.5-5.1) Chloride Level 101mmol/L (98-107) Carbon Dioxide Level 28mmol/L (21-32) Anion Gap 9 (6-14) Blood Urea Nitrogen 14mg/dL (7-20) Creatinine 3.1mg/dL (0.6-1.0) Estimated GFR (Cockcroft-Gault) 18.5 Glucose Level 115mg/dL (70-99) Calcium Level 7.7mg/dL (8.5-10.1) Phosphorus Level 2.4mg/dL (2.6-4.7) Albumin 1.3g/dL (3.4-5.0) Glucose (Fingerstick) 122mg/dL (70-99) 118mg/dL (70-99) Test 09/18/16 07:57 09/18/16 08:45 09/18/16 08:48 09/18/16 08:50 Glucose (Fingerstick) 75mg/dL (70-99) 123mg/dL (70-99) Sodium Level 134mmol/L (136-145) Potassium Level 3.6mmol/L (3.5-5.1) Chloride Level 99mmol/L (98-107) Carbon Dioxide Level 28mmol/L (21-32) Anion Gap 7 (6-14) Blood Urea Nitrogen 23mg/dL (7-20) Creatinine 4.3mg/dL (0.6-1.0) Estimated GFR (Cockcroft-Gault) 12.7 Glucose Level 135mg/dL (70-99) Calcium Level 7.6mg/dL (8.5-10.1) Prothrombin Time 20.6SEC (11.7-14.0) Prothromb Time International Ratio 1.9 (0.8-1.1) Laboratory Tests Test 09/17/16 16:12 09/17/16 20:36 09/18/16 05:50 09/18/16 07:57 Glucose (Fingerstick) 122mg/dL (70-99) 118mg/dL (70-99) 75mg/dL (70-99) White Blood Count 9.1x10^3/uL (4.0-11.0) Red Blood Count 2.89x10^6/uL (3.50-5.40) Hemoglobin 7.8g/dL (12.0-15.5) Hematocrit 24.1% (36.0-47.0) Mean Corpuscular Volume 84fL (79-100) Mean Corpuscular Hemoglobin 27pg (25-35) Mean Corpuscular Hemoglobin Concent 32g/dL (31-37) Red Cell Distribution Width 16.7% (11.5-14.5) Platelet Count 312x10^3/uL (140-400) Neutrophils (%) (Auto) 59% (31-73) Lymphocytes (%) (Auto) 30% (24-48) Monocytes (%) (Auto) 8% (0-9) Eosinophils (%) (Auto) 2% (0-3) Basophils (%) (Auto) 1% (0-3) Neutrophils # (Auto) 5.3x10^3uL (1.8-7.7) Lymphocytes # (Auto) 2.7x10^3/uL (1.0-4.8) Monocytes # (Auto) 0.7x10^3/uL (0.0-1.1) Eosinophils # (Auto) 0.2x10^3/uL (0.0-0.7) Basophils # (Auto) 0.1x10^3/uL (0.0-0.2) Test 09/18/16 08:45 09/18/16 08:48 09/18/16 08:50 Sodium Level 134mmol/L (136-145) Potassium Level 3.6mmol/L (3.5-5.1) Chloride Level 99mmol/L (98-107) Carbon Dioxide Level 28mmol/L (21-32) Anion Gap 7 (6-14) Blood Urea Nitrogen 23mg/dL (7-20) Creatinine 4.3mg/dL (0.6-1.0) Estimated GFR (Cockcroft-Gault) 12.7 Glucose Level 135mg/dL (70-99) Calcium Level 7.6mg/dL (8.5-10.1) Glucose (Fingerstick) 123mg/dL (70-99) Prothrombin Time 20.6SEC (11.7-14.0) Prothromb Time International Ratio 1.9 (0.8-1.1) Medications Current Medications Oxycodone/ Acetaminophen (Percocet 5/325) 1 tab 1X ONCE PO ; Start 09/09/16 at 19:00; Stop 09/09/16 at 19:01; Status DC Hydromorphone HCl 1 mg 1 mg 1X ONCE IV Last administered on 09/09/16 19:21; Start 09/09/16 at 19:15; Stop 09/09/16 at 19:16; Status DC Pantoprazole Sodium/Sodium Chloride (Protonix Iv/Iv Sodium Chloride 0.9% 100ml) 100 ml @ 10 mls/hr 1X ONCE IV Last administered on 09/09/16 19:51; Start at 19:30; Stop 09/10/16 at 05:29; Status DC Ondansetron HCl 4 mg 4 mg PRN Q8HRS PRN IV NAUSEA/VOMITING Last administered on 09/09/16 19:51; Start 09/09/16 at 19:30; Stop 09/10/16 at 19:29; Status DC Sodium Chloride (Iv Sodium Chloride 0.9% 1000ml Bag) 1,000 ml @ 100 mls/hr Q10H IV Last administered on 09/09/16 19:51; Start 09/09/16 at 19:30; Stop at 06:00; Status DC Acetaminophen (Tylenol) 650 mg PRN Q4HRS PRN PO FEVER Last administered on 09/09 19:52; Start 09/09/16 at 19:30; Stop 09/10/16 at 19:29; Status DC Multi-Ingredient Mouthwash/Gargle 15 ml 15 ml 1X ONCE SWSW Last administered on 09/09/16 23:41; Start 09/09/16 at 23:30; Stop 09/09/16 at 23:31; Status DC Phytonadione/ Sodium Chloride (Vitamin K/Iv Sodium Chloride 0.9% 50ml) 51 ml @ 102 mls/hr 1X ONCE IV Last administered on 09/10/16 02:07; Start 09/10/16 at 00:00; Stop 09/10/16 at 00:29; Status DC Acetaminophen (Tylenol) 325 mg PRN Q4HRS PO ; Start 09/09/16 at 23:30; Stop at 23:30; Status DC Allopurinol (Zyloprim) 100 mg DAILY PO Last administered on 09/17/16 10:24; Start 09/10/16 at 09:00 Bisacodyl (Dulcolax Supp) 10 mg PRN DAILY PRN RC CONSTIPATION; Start 09/09/16 at 23:30 Cyclobenzaprine HCl (Flexeril) 10 mg PRN TID PRN PO back pain Last administered on 09/15/16 00:44; Start 09/09/16 at 23:30 Gabapentin (Neurontin) 300 mg DAILY PO Last administered on 09/18/16 12:48; Start 09/10/16 at 09:00 Ipratropium Caret (Atrovent) 0.2 mg QID NEB ; Start 09/10/16 at 09:00; Status UNV Lidocaine (Lidoderm) 1 patch DAILY TP Last administered on 09/18/16 07:47; Start 09/10/16 at 09:00 Nortriptyline HCl (Pamelor) 25 mg QHS PO Last administered on 09/17/16 20:51; Start 09/10/16 at 21:00 Oxycodone HCl (Oxycontin) 10 mg BID PO Last administered on 09/18/16 12:48; Start 09/10/16 at 09:00 Oxycodone/ Acetaminophen (Percocet 10/325) 1 tab PRN Q4HRS PRN PO SEVERE PAIN Last administered on 09/18/16 12:49; Start 09/09/16 at 23:30 Non-Formulary Medication 2 puff Q4HRS INH FOR ASTHMA; Start 09/10/16 at 00:00; Status UNV Carvedilol (Coreg) 25 mg BIDWMEALS PO Last administered on 09/17/16 16:20; Start 09/10/16 at 08:00 Non-Formulary Medication 1 puff BID IH ; Start 09/10/16 at 09:00; Status UNV Ondansetron HCl (Zofran Odt) 8 mg Q8HRS PO Last administered on 09/17/16 20:51 ; Start 09/10/16 at 06:00 Sertraline HCl (Zoloft) 100 mg DAILY PO Last administered on 09/18/16 09:00; Start 09/10/16 at 09:00 Labetalol HCl (Normodyne) 20 mg PRN Q2HR PRN IVP HYPERTENSION, SEE COMMENTS Last administered on 09/13/16 00:17; Start 09/09/16 at 23:30 Albuterol/ Ipratropium (Duoneb) 3 ml RTQID NEB Last administered on 09/18/16 07 :34; Start 09/10/16 at 08:00 Budesonide (Pulmicort) 0.5 mg RTBID NEB Last administered on 09/18/16 07:34; Start 09/10/16 at 08:00 Albuterol Sulfate 2.5 mg 2.5 mg PRN Q4HRS PRN NEB SHORTNESS OF BREATH; Start at 23:30 Pantoprazole Sodium 80 mg/ Sodium Chloride 100 ml @ 10 mls/hr Q10H IV Last administered on 09/13/16 07:51; Start 09/10/16 at 10:00; Stop 09/13/16 at 09:59 ; Status DC Magnesium Sulfate/ Dextrose 50 ml @ 25 mls/hr PRN DAILY PRN IV for Mag < 1.7 on am labs; Start 09/10/16 at 10:00 Sodium Chloride (Iv Sodium Chloride 0.9% 1000ml Bag) 1,000 ml @ 1,000 mls/hr Q1H PRN IV hypotension; Start 09/11/16 at 08:50; Stop 09/11/16 at 14:49; Status DC Diphenhydramine HCl (Benadryl) 25 mg 1X PRN PRN IV ITCHING; Start 09/11/16 at 09:00; Stop 09/12/16 at 08:59; Status DC Diphenhydramine HCl (Benadryl) 25 mg 1X PRN PRN IV ITCHING; Start 09/11/16 at 09:00; Stop 09/12/16 at 08:59; Status DC Sodium Chloride (Normal Saline Flush) 10 ml 1X PRN PRN IV AP catheter pack; Start 09/11/16 at 09:00; Stop 09/12/16 at 08:59; Status DC Sodium Chloride (Normal Saline Flush) 10 ml 1X PRN PRN IV HIDE DROPPER catheter pack; Start 09/11/16 at 09:00; Stop 09/12/16 at 08:59; Status DC Labetalol HCl 10 mg 10 mg PRN Q1HR PRN IVP SBP > 180; Start 09/11/16 at 09:00; Stop 09/12/16 at 08:59; Status DC Sodium Chloride (Iv Sodium Chloride 0.9% 1000ml Bag) 1,000 ml @ 400 mls/hr Q2H30M PRN IV PATENCY; Start 09/11/16 at 08:50; Stop 09/11/16 at 20:49; Status DC Info (PHARMACY MONITORING -- do not chart) 1 each PRN DAILY PRN MC SEE COMMENTS ; Start 09/11/16 at 09:00 Info (PHARMACY MONITORING -- do not chart) 1 each PRN DAILY PRN MC SEE COMMENTS ; Start 09/11/16 at 09:00; Status UNV Sodium Cl/Sod Bicarb/Potass Cl/ PEG (Golytely) 4,000 ml 1X ONCE PO Last administered on 09/11/16t 17:13; Start 09/11/16 at 13:00; Stop 09/11/16 at 13:01 ; Status DC Fentanyl Citrate (Fentanyl 2ml Vial) 25 mcg PRN Q5MIN PRN IV MILD PAIN; Start 09/12/16 at 07:00; Stop 09/13/16 at 06:59; Status DC Fentanyl Citrate 50 mcg 50 mcg PRN Q5MIN PRN IV MODERATE PAIN; Start 09/12/16 at 07:00; Stop 09/13/16 at 06:59; Status DC Lactated Ringer's (Iv Lactated Ringers) 1,000 ml @ 0 mls/hr Q0M IV ; Start at 07:00; Stop 09/12/16 at 18:59; Status DC Lidocaine HCl 2 ml 1X PRN PRN ID IV START; Start 09/12/16 at 07:00; Stop at 06:59; Status DC Prochlorperazine Edisylate (Compazine) 5 mg PACU PRN PRN IV NAUSEA; Start 09/12 at 07:00; Stop 09/13/16 at 06:59; Status DC Pantoprazole Sodium 40 mg 40 mg DAILYAC IVP ; Start 09/13/16 at 07:30; Status UNV Magnesium Sulfate/ Dextrose 50 ml @ 25 mls/hr 1X ONCE IV ; Start 09/12/16 at 11 :30; Stop 09/12/16 at 13:29; Status DC Propofol 20 ml @ As Directed STK-MED ONCE IV ; Start 09/12/16 at 12:55; Stop at 12:56; Status DC Propofol (Diprivan) 20 ml @ As Directed STK-MED ONCE IV ; Start 09/12/16 at 12: 55; Stop 09/12/16 at 12:56; Status DC Lidocaine HCl (Lidocaine Pf 2% Vial) 5 ml STK-MED ONCE .ROUTE ; Start 09/12/16 at 12:55; Stop 09/12/16 at 12:56; Status DC Lorazepam (Ativan) 2 mg PRN Q4HRS PRN IV ANXIETY / AGITATION; Start 09/12/16 at 14:15 Lorazepam (Ativan) 2 mg Q4HRS PRN IV ANXIETY / AGITATION; Start 09/12/16 at 14: 15; Status UNV Haloperidol Lactate (Haldol) 2.5 mg PRN Q6HRS PRN IM AGITATION; Start 09/12/16 at 14:15 Haloperidol Lactate (Haldol) 2.5 mg PRN Q6HRS PRN IVP AGITATION; Start at 14:15 Lorazepam 2 mg 2 mg PRN Q4HRS PRN IM ANXIETY / AGITATION; Start 09/12/16 at 14: 30; Stop 09/17/16 at 14:37; Status DC Sodium Chloride (Iv Sodium Chloride 0.9% 1000ml Bag) 1,000 ml @ 1,000 mls/hr Q1H PRN IV hypotension; Start 09/13/16 at 08:39; Stop 09/13/16 at 14:38; Status DC Diphenhydramine HCl (Benadryl) 25 mg 1X PRN PRN IV ITCHING; Start 09/13/16 at 08:45; Stop 09/14/16 at 08:44; Status DC Diphenhydramine HCl (Benadryl) 25 mg 1X PRN PRN IV ITCHING; Start 09/13/16 at 08:45; Stop 09/14/16 at 08:44; Status DC Sodium Chloride (Normal Saline Flush) 10 ml 1X PRN PRN IV AP catheter pack; Start 09/13/16 at 08:45; Stop 09/14/16 at 08:44; Status DC Sodium Chloride (Normal Saline Flush) 10 ml 1X PRN PRN IV HIDE DROPPER catheter pack; Start 09/13/16 at 08:45; Stop 09/14/16 at 08:44; Status DC Labetalol HCl (Normodyne) 10 mg PRN Q1HR PRN IVP SBP > 180; Start 09/13/16 at 08:45; Stop 09/14/16 at 08:44; Status DC Info (PHARMACY MONITORING -- do not chart) 1 each PRN DAILY PRN MC SEE COMMENTS ; Start 09/13/16 at 08:45; Status UNV Info (PHARMACY MONITORING -- do not chart) 1 each PRN DAILY PRN MC SEE COMMENTS ; Start 09/13/16 at 08:45; Status UNV Pantoprazole Sodium 40 mg 40 mg DAILYAC IVP Last administered on 09/16/16t 05: 57; Start 09/13/16 at 13:00; Stop 09/17/16 at 10:02; Status DC Sodium Chloride (Iv Sodium Chloride 0.9% 1000ml Bag) 1,000 ml @ 1,000 mls/hr Q1H PRN IV hypotension; Start 09/16/16 at 08:46; Stop 09/16/16 at 14:45; Status DC Diphenhydramine HCl (Benadryl) 25 mg 1X PRN PRN IV ITCHING; Start 09/16/16 at 09:00; Stop 09/17/16 at 08:59; Status DC Diphenhydramine HCl (Benadryl) 25 mg 1X PRN PRN IV ITCHING; Start 09/16/16 at 09:00; Stop 09/17/16 at 08:59; Status DC Sodium Chloride (Normal Saline Flush) 10 ml 1X PRN PRN IV AP catheter pack; Start 09/16/16 at 09:00; Stop 09/17/16 at 08:59; Status DC Sodium Chloride (Normal Saline Flush) 10 ml 1X PRN PRN IV HIDE DROPPER catheter pack; Start 09/16/16 at 09:00; Stop 09/17/16 at 08:59; Status DC Info (PHARMACY MONITORING -- do not chart) 1 each PRN DAILY PRN MC SEE COMMENTS ; Start 09/16/16 at 09:00; Status UNV Info (PHARMACY MONITORING -- do not chart) 1 each PRN DAILY PRN MC SEE COMMENTS ; Start 09/16/16 at 09:00; Status UNV Darbepoetin Ernst (Aranesp) 60 mcg [id number] SQ Last administered on 09/16/16 22 :28; Start 09/16/16 at 21:00 Pantoprazole Sodium (Protonix) 40 mg DAILYAC PO Last administered on 09/17/16 10:22; Start 09/17/16 at 10:02 Fentanyl Citrate (Fentanyl 2ml Vial) 25 mcg PRN Q5MIN PRN IV MILD PAIN; Start 09/18/16 at 07:00; Stop 09/19/16 at 06:59 Fentanyl Citrate 50 mcg 50 mcg PRN Q5MIN PRN IV MODERATE PAIN; Start 09/18/16 at 07:00; Stop 09/19/16 at 06:59 Lactated Ringer's (Iv Lactated Ringers) 1,000 ml @ 0 mls/hr Q0M IV ; Start 09/18 at 07:00; Stop 09/18/16 at 18:59 Lidocaine HCl 2 ml 1X PRN PRN ID IV START; Start 09/18/16 at 07:00; Stop at 06:59 Prochlorperazine Edisylate (Compazine) 5 mg PACU PRN PRN IV NAUSEA; Start at 07:00; Stop 09/19/16 at 06:59 Dextrose 25 gm 25 gm STK-MED ONCE IV Last administered on 09/18/16 08:19; Start 09/18/16 at 08:19; Stop 09/18/16 at 08:20; Status DC Propofol (Diprivan) 20 ml @ As Directed STK-MED ONCE IV ; Start 09/18/16 at 11:13 ; Stop 09/18/16 at 11:14; Status DC Lidocaine HCl 5 ml 5 ml STK-MED ONCE .ROUTE ; Start 09/18/16 at 11:13; Stop at 11:14; Status DC Sodium Chloride 1,000 ml @ 100 mls/hr 1X ONCE IV Last administered on t 11:29; Start 09/18/16 at 11:30; Stop 09/18/16 at 21:29 Sodium Chloride (Iv Sodium Chloride 0.9% 1000ml Bag) 1,000 ml @ 1,000 mls/hr Q1H PRN IV hypotension; Start 09/18/16 at 13:47; Stop 09/18/16 at 19:46 Acetaminophen (Tylenol) 500 mg 1X PRN PRN PO MILD PAIN / TEMP; Start 09/18/16 at 14:00; Stop 09/19/16 at 13:59 Diphenhydramine HCl (Benadryl) 25 mg 1X PRN PRN IV ITCHING; Start 09/18/16 at 14 :00; Stop 09/19/16 at 13:59 Diphenhydramine HCl (Benadryl) 25 mg 1X PRN PRN IV ITCHING; Start 09/18/16 at 14 :00; Stop 09/19/16 at 13:59 Labetalol HCl 10 mg 10 mg PRN Q1HR PRN IVP SBP > 180; Start 09/18/16 at 14:00; Stop 09/19/16 at 13:59 Sodium Chloride (Iv Sodium Chloride 0.9% 1000ml Bag) 1,000 ml @ 400 mls/hr Q2H30M PRN IV PATENCY; Start 09/18/16 at 13:47; Stop 09/19/16 at 01:46 Info (PHARMACY MONITORING -- do not chart) 1 each PRN DAILY PRN MC SEE COMMENTS ; Start 09/18/16 at 14:00; Status UNV Active Scripts Active Reported [Mylanta] Tylenol (Acetaminophen) 325 Mg Tablet 1 Tab PO PRN Q4HRS Fleet Enema (Na Phos,M-B/Na Phos,Di-Ba) 133 Ml Enema 1 Each RC ONCE Dulcolax (Bisacodyl) 10 Mg Supp.rect 10 Mg RC PRN DAILY PRN Zofran Odt (Ondansetron) 8 Mg Tab.rapdis 1 Tab PO Q8HRS Nitrostat (Nitroglycerin) 0.4 Mg Tab.subl 1 Tab SL UD Cyclobenzaprine Hcl 10 Mg Tablet 1 Tab PO TID Zepatier 50-100 mg Tablet (Elbasvir/Grazoprevir) 1 Each Tablet 1 Each PO [PhosLo] Coreg (Carvedilol) 25 Mg Tablet 1 Tab PO BID Aspirin 81 Mg Tab.chew 1 Tab PO DAILY Allopurinol 100 Mg Tablet 1 Tab PO DAILY Ventolin Hfa Inhaler (Albuterol Sulfate) 18 Gm Hfa.aer.ad 2 Puff INH Q4HRS Nephplex Rx Tablet (Vit B Cmplx No3/Fa/C/Biot/Zinc) 1 Each Tablet 1 Each PO Senokot (Sennosides) 8.6 Mg Tablet 1 Tab PO BID Oxycontin (Oxycodone HCl) 10 Mg Tab.er.12h 10 Mg PO BID Glycolax (Polyethylene Glycol 3350) 119 Gm Powder 17 Gm PO UD Percocet 10-325 Mg Tablet (Oxycodone/Acetaminophen) 1 Each Tablet 1 Tab PO Q4- 6HRS Vitamin D3 (Cholecalciferol (Vitamin D3)) 1,000 Unit Tablet 1 Tab PO DAILY Advair 250-50 Diskus (Fluticasone/Salmeterol) 1 Each Disk.w.dev 1 Puff IH BID Ipratropium Caret 0.2 Mg/1 Ml Solution 1 Vial NEB QID Lidoderm (Lidocaine) 700 Mg Adh..patch 1 Patch TP DAILY Nortriptyline Hcl 25 Mg Capsule 1 Cap PO QHS Ciprofloxacin Hcl 250 Mg Tablet 1 Tab PO BID Warfarin Sodium 2 Mg Tablet 1.5 Mg PO DAILY Gabapentin 300 Mg Capsule 300 Mg PO TID Zoloft (Sertraline Hcl) 100 Mg Tablet 1 Tab PO DAILY Vitals/I & O Vital Sign - Last 24 Hours 09/17/16 09/17/16 09/17/16 09/17/16 15:10 15:56 16:20 19:05 Temp 97.7 97.7 Pulse 76 76 Resp 16 B/P 147/71 147/71 Pulse Ox 96 O2 Delivery Room Air Room Air Room Air 09/17/16 09/17/16 09/17/16 09/17/16 19:23 19:41 20:00 20:51 Temp 98.9 98.9 Pulse 77 Resp 18 20 16 B/P 111/76 Pulse Ox 96 97 97 97 O2 Delivery Room Air Room Air Room Air Room Air 09/17/16 09/18/16 09/18/16 09/18/16 23:34 00:50 02:31 03:33 Temp 98.8 98.0 98.8 98.0 Pulse 77 76 Resp 18 16 16 20 B/P 118/78 148/82 Pulse Ox 98 98 98 97 O2 Delivery Room Air Room Air Room Air Room Air 09/18/16 09/18/16 09/18/16 09/18/16 07:22 07:36 07:53 11:21 Temp 98.3 98.2 98.3 98.2 Pulse 76 77 83 Resp 19 20 B/P 148/82 155/80 Pulse Ox 100 97 95 O2 Delivery Room Air Room Air 09/18/16 09/18/16 09/18/16 09/18/16 11:25 12:16 12:28 12:48 Pulse 85 84 Resp 18 20 B/P 127/60 134/78 Pulse Ox 99 97 97 O2 Delivery Room Air Nasal Cannula Room Air Room Air O2 Flow Rate 2 2.0 09/18/16 09/18/16 12:49 13:37 Resp 20 20 Pulse Ox 97 97 O2 Delivery Room Air Room Air Intake and Output 09/17/16 09/17/16 09/18/16 15:00 23:00 07:00 Intake Total 400 ml 240 ml Output Total 300 ml Balance 400 ml -60 ml KURT LUND MD Sep 18, 2016 14:57
[2016-09-18 19:59] VITALS: BP 126/56
[2016-09-18] MEDS: NORTRIPTYLINE 25 MG CAPSULE PO SCH (20:43)
[2016-09-18 23:59] VITALS: BP 92/42
[2016-09-19] VITALS (7 sets, daily range): BP systolic 97–152; BP diastolic 59–78
[2016-09-19 06:40] LABS: BASO # 0.1 x10^3/uL (0.0-0.2); BASO % 1 % (0-3); EOS % 2 % (0-3); HEMATOCRIT 23.4 % (36.0-47.0); HEMOGLOBIN 7.6 g/dL (12.0-15.5); LYMPH # 2.9 x10^3/uL (1.0-4.8); LYMPH % 32 % (24-48); MEAN CORPUSCULAR HEMOGLOBIN 27 pg (25-35); MEAN CORPUSCULAR HGB CONC 33 g/dL (31-37); MEAN CORPUSCULAR VOLUME 83 fL (79-100); MONO % 11 % (0-9); NEUT % 54 % (31-73); PLATELET COUNT 299 x10^3/uL (140-400); RED BLOOD COUNT 2.81 x10^6/uL (3.50-5.40); RED CELL DISTRIBUTION WIDTH 16.6 % (11.5-14.5); WHITE BLOOD COUNT 8.9 x10^3/uL (4.0-11.0)
[2016-09-19 06:53] LABS: CALCIUM 7.8 mg/dL (8.5-10.1); CREATININE 2.4 mg/dL (0.6-1.0); GFR 24.9
[2016-09-19] MEDS: BUDESONIDE 0.5 MG/2 ML NEBU NEB SCH ×2 (07:14→21:08)
[2016-09-19] MEDS: IPRATRPIUM/ALBUTEROL 0.5/2.5MG 3 ML NEBU. NEB SCH ×5 (07:15→21:08)
[2016-09-19] MEDS: GABAPENTIN 300 MG CAPSULE. PO SCH (08:14)
[2016-09-19] MEDS: OXYCODONE ER 10 MG TAB.ER.12H. PO SCH ×2 (08:14→20:48)
[2016-09-19] MEDS: ALLOPURINOL 100 MG TABLET. PO SCH (08:14)
[2016-09-19] MEDS: SERTRALINE 50 MG TABLET. PO SCH (08:14)
[2016-09-19] MEDS: LIDOCAINE (700MG/PATCH) PATCH. TP SCH (08:15)
[2016-09-19] MEDS: ONDANSETRON ODT 4 MG TAB.RAPDIS PO SCH ×3 (08:15→22:00)
[2016-09-19] MEDS: PANTOPRAZOLE 40 MG TABLET. PO SCH (08:15)
[2016-09-19] MEDS: CARVEDILOL 12.5 MG TABLET PO SCH ×2 (08:16→17:28)
--- NOTE | 2016-09-19 09:09 | PDOC ---
Subjective: Subjective: Had two normal-colored stools. Eating well. No abd pain or bleeding. Does c/ o right-sided facial/nasal pain, photophobia, denies BUSTOS. Objective: Vital Signs: Vital Signs Date Time Temp Pulse Resp B/P Pulse Ox O2 Delivery O2 Flow Rate FiO2 09/19/16 08:16 100 123/69 09/19/16 07:55 98.2 20 94 Room Air 98.2 09/18/16 20:00 2.0 Labs: Laboratory Tests Test 09/18/16 17:03 09/19/16 06:20 Glucose (Fingerstick) 103mg/dL White Blood Count 8.9x10^3/uL Red Blood Count 2.81x10^6/uL Hemoglobin 7.6g/dL Hematocrit 23.4% Mean Corpuscular Volume 83fL Mean Corpuscular Hemoglobin 27pg Mean Corpuscular Hemoglobin Concent 33g/dL Red Cell Distribution Width 16.6% Platelet Count 299x10^3/uL Neutrophils (%) (Auto) 54% Lymphocytes (%) (Auto) 32% Monocytes (%) (Auto) 11% Eosinophils (%) (Auto) 2% Basophils (%) (Auto) 1% Neutrophils # (Auto) 4.8x10^3uL Lymphocytes # (Auto) 2.9x10^3/uL Monocytes # (Auto) 0.9x10^3/uL Eosinophils # (Auto) 0.2x10^3/uL Basophils # (Auto) 0.1x10^3/uL Sodium Level 135mmol/L Potassium Level 4.0mmol/L Chloride Level 101mmol/L Carbon Dioxide Level 31mmol/L Anion Gap 3 Blood Urea Nitrogen 10mg/dL Creatinine 2.4mg/dL Estimated GFR (Cockcroft-Gault) 24.9 Glucose Level 82mg/dL Calcium Level 7.8mg/dL Imaging: EGD 09/18/16: non-erosive gastritis. PE: GEN: NAD LUNGS: CTAB HEART: RRR ABD: NABS, S/ND/NT NEURO/PSYCH: A & O 3 A/P: Anemia -Hgb stable, no further bleeding -EGD 09/18 w/ non-erosive gastritis, reports normal colonoscopy @[facility] last year -- Stable GI-andrew. Other per Dr. Ng. JORGE YANG 2, 2017 09:08
--- NOTE | 2016-09-19 11:10 | PDOC ---
Renal-Progress Notes Subjective Notes Notes NONE History of Present Illness Hx of present illness NO CHANGE Vitals Vitals Vital Signs Date Time Temp Pulse Resp B/P Pulse Ox O2 Delivery O2 Flow Rate FiO2 09/19/16 10:00 98.7 88 97/78 95 Room Air 2.0 98.7 09/19/16 09:57 20 Weight Weight [ ] I.O. Intake and Output Intake and Output 09/19/16 07:00 Intake Total 290 ml Output Total 200 ml Balance 90 ml Intake Oral 290 ml Output Urine Total 200 ml # Voids 2 Labs Labs Laboratory Tests Test 09/18/16 17:03 09/19/16 06:20 Glucose (Fingerstick) 103mg/dL (70-99) White Blood Count 8.9x10^3/uL (4.0-11.0) Red Blood Count 2.81x10^6/uL (3.50-5.40) Hemoglobin 7.6g/dL (12.0-15.5) Hematocrit 23.4% (36.0-47.0) Mean Corpuscular Volume 83fL (79-100) Mean Corpuscular Hemoglobin 27pg (25-35) Mean Corpuscular Hemoglobin Concent 33g/dL (31-37) Red Cell Distribution Width 16.6% (11.5-14.5) Platelet Count 299x10^3/uL (140-400) Neutrophils (%) (Auto) 54% (31-73) Lymphocytes (%) (Auto) 32% (24-48) Monocytes (%) (Auto) 11% (0-9) Eosinophils (%) (Auto) 2% (0-3) Basophils (%) (Auto) 1% (0-3) Neutrophils # (Auto) 4.8x10^3uL (1.8-7.7) Lymphocytes # (Auto) 2.9x10^3/uL (1.0-4.8) Monocytes # (Auto) 0.9x10^3/uL (0.0-1.1) Eosinophils # (Auto) 0.2x10^3/uL (0.0-0.7) Basophils # (Auto) 0.1x10^3/uL (0.0-0.2) Sodium Level 135mmol/L (136-145) Potassium Level 4.0mmol/L (3.5-5.1) Chloride Level 101mmol/L (98-107) Carbon Dioxide Level 31mmol/L (21-32) Anion Gap 3 (6-14) Blood Urea Nitrogen 10mg/dL (7-20) Creatinine 2.4mg/dL (0.6-1.0) Estimated GFR (Cockcroft-Gault) 24.9 Glucose Level 82mg/dL (70-99) Calcium Level 7.8mg/dL (8.5-10.1) Review of Systems Constitutional: yes: alert, oriented, weakness Ears/Nose/Throat: Yes: no symptom reported Gastrointestional: Yes: melena Genitourinary: Yes: no symptom reported Skin: Yes no symptom reported Physical Exam General Appearance: no apparent distress Skin: warm Respiratory: bilateral CTA Heart: S1S2 Abdomen: soft, bowel sounds present Extremities: pulses present Neurology: alert, oriented Assessment Assessment IMP ANEMIA GI BLEED ESRD GASTRITIS PLAN HD TOMORROW SERVANDO CHAVES MD Sep 19, 2016 11:10
[2016-09-19] MEDS: CYCLOBENZAPRINE 10 MG TABLET. PO PRN ×2 (11:27→20:46)
[2016-09-19] MEDS: OXYCODONE/APAP 10/325 TABLET. PO PRN ×2 (11:28→17:30)
--- NOTE | 2016-09-19 12:50 | PDOC ---
PROGRESS NOTES Chief Complaint Chief Complaint 1. Acute blood loss anemia, GI bleed, unclear source. 2. ESRD, on HD 3. INR 1.9, Off Coumadin. 4. Hypertension 5. Asthma 6. Obesity 7. Back pain Plan EGD today, no acute findings. colonoscopy Normal per pt, last year hold coumarin monitor hemoglobin PT/OT HD SNU placement lumbar x -ra y pain control GI follow up as out pt. History of Present Illness History of Present Illness c/o back pain no fever no tenderness Vitals Vitals Vital Signs Date Time Temp Pulse Resp B/P Pulse Ox O2 Delivery O2 Flow Rate FiO2 09/19/16 11:43 Room Air 09/19/16 10:00 98.7 88 97/78 95 2.0 98.7 09/19/16 09:57 20 Physical Exam General: Alert, Oriented X3, Cooperative, No acute distress Heart: Normal S1, Normal S2 Lungs: Clear Abdomen: Normal bowel sounds, Soft, No tenderness, No hepatosplenomegaly Extremities: No clubbing, No cyanosis, Other (back, no spinal tenderness. ) Skin: No rashes, No significant lesion, Other Labs LABS Laboratory Tests Test 09/18/16 17:03 09/19/16 06:20 Glucose (Fingerstick) 103mg/dL (70-99) White Blood Count 8.9x10^3/uL (4.0-11.0) Red Blood Count 2.81x10^6/uL (3.50-5.40) Hemoglobin 7.6g/dL (12.0-15.5) Hematocrit 23.4% (36.0-47.0) Mean Corpuscular Volume 83fL (79-100) Mean Corpuscular Hemoglobin 27pg (25-35) Mean Corpuscular Hemoglobin Concent 33g/dL (31-37) Red Cell Distribution Width 16.6% (11.5-14.5) Platelet Count 299x10^3/uL (140-400) Neutrophils (%) (Auto) 54% (31-73) Lymphocytes (%) (Auto) 32% (24-48) Monocytes (%) (Auto) 11% (0-9) Eosinophils (%) (Auto) 2% (0-3) Basophils (%) (Auto) 1% (0-3) Neutrophils # (Auto) 4.8x10^3uL (1.8-7.7) Lymphocytes # (Auto) 2.9x10^3/uL (1.0-4.8) Monocytes # (Auto) 0.9x10^3/uL (0.0-1.1) Eosinophils # (Auto) 0.2x10^3/uL (0.0-0.7) Basophils # (Auto) 0.1x10^3/uL (0.0-0.2) Sodium Level 135mmol/L (136-145) Potassium Level 4.0mmol/L (3.5-5.1) Chloride Level 101mmol/L (98-107) Carbon Dioxide Level 31mmol/L (21-32) Anion Gap 3 (6-14) Blood Urea Nitrogen 10mg/dL (7-20) Creatinine 2.4mg/dL (0.6-1.0) Estimated GFR (Cockcroft-Gault) 24.9 Glucose Level 82mg/dL (70-99) Calcium Level 7.8mg/dL (8.5-10.1) Hepatitis B Surface Antigen Negative (Negative) Assessment and Plan Assessmemt and Plan Problems Medical Problems: (1) Anemia Status: Acute (2) Coagulopathy Status: Acute (3) Coumadin toxicity Status: Acute (4) Elevated INR (international normalized ratio) due to prior anticoagulant medication ingestion Status: Acute (5) ESRD on dialysis Status: Acute (6) GI bleed Status: Acute Problems: Comment Review of Relevant I have reviewed the following items christi (where applicable) has been applied. Labs Laboratory Tests Test 09/17/16 16:12 09/17/16 20:36 09/18/16 05:50 09/18/16 07:57 Glucose (Fingerstick) 122mg/dL (70-99) 118mg/dL (70-99) 75mg/dL (70-99) White Blood Count 9.1x10^3/uL (4.0-11.0) Red Blood Count 2.89x10^6/uL (3.50-5.40) Hemoglobin 7.8g/dL (12.0-15.5) Hematocrit 24.1% (36.0-47.0) Mean Corpuscular Volume 84fL (79-100) Mean Corpuscular Hemoglobin 27pg (25-35) Mean Corpuscular Hemoglobin Concent 32g/dL (31-37) Red Cell Distribution Width 16.7% (11.5-14.5) Platelet Count 312x10^3/uL (140-400) Neutrophils (%) (Auto) 59% (31-73) Lymphocytes (%) (Auto) 30% (24-48) Monocytes (%) (Auto) 8% (0-9) Eosinophils (%) (Auto) 2% (0-3) Basophils (%) (Auto) 1% (0-3) Neutrophils # (Auto) 5.3x10^3uL (1.8-7.7) Lymphocytes # (Auto) 2.7x10^3/uL (1.0-4.8) Monocytes # (Auto) 0.7x10^3/uL (0.0-1.1) Eosinophils # (Auto) 0.2x10^3/uL (0.0-0.7) Basophils # (Auto) 0.1x10^3/uL (0.0-0.2) Test 09/18/16 08:45 09/18/16 08:48 09/18/16 08:50 09/18/16 17:03 Sodium Level 134mmol/L (136-145) Potassium Level 3.6mmol/L (3.5-5.1) Chloride Level 99mmol/L (98-107) Carbon Dioxide Level 28mmol/L (21-32) Anion Gap 7 (6-14) Blood Urea Nitrogen 23mg/dL (7-20) Creatinine 4.3mg/dL (0.6-1.0) Estimated GFR (Cockcroft-Gault) 12.7 Glucose Level 135mg/dL (70-99) Calcium Level 7.6mg/dL (8.5-10.1) Glucose (Fingerstick) 123mg/dL (70-99) 103mg/dL (70-99) Prothrombin Time 20.6SEC (11.7-14.0) Prothromb Time International Ratio 1.9 (0.8-1.1) Test 09/19/16 06:20 White Blood Count 8.9x10^3/uL (4.0-11.0) Red Blood Count 2.81x10^6/uL (3.50-5.40) Hemoglobin 7.6g/dL (12.0-15.5) Hematocrit 23.4% (36.0-47.0) Mean Corpuscular Volume 83fL (79-100) Mean Corpuscular Hemoglobin 27pg (25-35) Mean Corpuscular Hemoglobin Concent 33g/dL (31-37) Red Cell Distribution Width 16.6% (11.5-14.5) Platelet Count 299x10^3/uL (140-400) Neutrophils (%) (Auto) 54% (31-73) Lymphocytes (%) (Auto) 32% (24-48) Monocytes (%) (Auto) 11% (0-9) Eosinophils (%) (Auto) 2% (0-3) Basophils (%) (Auto) 1% (0-3) Neutrophils # (Auto) 4.8x10^3uL (1.8-7.7) Lymphocytes # (Auto) 2.9x10^3/uL (1.0-4.8) Monocytes # (Auto) 0.9x10^3/uL (0.0-1.1) Eosinophils # (Auto) 0.2x10^3/uL (0.0-0.7) Basophils # (Auto) 0.1x10^3/uL (0.0-0.2) Sodium Level 135mmol/L (136-145) Potassium Level 4.0mmol/L (3.5-5.1) Chloride Level 101mmol/L (98-107) Carbon Dioxide Level 31mmol/L (21-32) Anion Gap 3 (6-14) Blood Urea Nitrogen 10mg/dL (7-20) Creatinine 2.4mg/dL (0.6-1.0) Estimated GFR (Cockcroft-Gault) 24.9 Glucose Level 82mg/dL (70-99) Calcium Level 7.8mg/dL (8.5-10.1) Hepatitis B Surface Antigen Negative (Negative) Laboratory Tests Test 09/18/16 17:03 09/19/16 06:20 Glucose (Fingerstick) 103mg/dL (70-99) White Blood Count 8.9x10^3/uL (4.0-11.0) Red Blood Count 2.81x10^6/uL (3.50-5.40) Hemoglobin 7.6g/dL (12.0-15.5) Hematocrit 23.4% (36.0-47.0) Mean Corpuscular Volume 83fL (79-100) Mean Corpuscular Hemoglobin 27pg (25-35) Mean Corpuscular Hemoglobin Concent 33g/dL (31-37) Red Cell Distribution Width 16.6% (11.5-14.5) Platelet Count 299x10^3/uL (140-400) Neutrophils (%) (Auto) 54% (31-73) Lymphocytes (%) (Auto) 32% (24-48) Monocytes (%) (Auto) 11% (0-9) Eosinophils (%) (Auto) 2% (0-3) Basophils (%) (Auto) 1% (0-3) Neutrophils # (Auto) 4.8x10^3uL (1.8-7.7) Lymphocytes # (Auto) 2.9x10^3/uL (1.0-4.8) Monocytes # (Auto) 0.9x10^3/uL (0.0-1.1) Eosinophils # (Auto) 0.2x10^3/uL (0.0-0.7) Basophils # (Auto) 0.1x10^3/uL (0.0-0.2) Sodium Level 135mmol/L (136-145) Potassium Level 4.0mmol/L (3.5-5.1) Chloride Level 101mmol/L (98-107) Carbon Dioxide Level 31mmol/L (21-32) Anion Gap 3 (6-14) Blood Urea Nitrogen 10mg/dL (7-20) Creatinine 2.4mg/dL (0.6-1.0) Estimated GFR (Cockcroft-Gault) 24.9 Glucose Level 82mg/dL (70-99) Calcium Level 7.8mg/dL (8.5-10.1) Hepatitis B Surface Antigen Negative (Negative) Medications Current Medications Oxycodone/ Acetaminophen (Percocet 5/325) 1 tab 1X ONCE PO ; Start 09/09/16 at 19:00; Stop 09/09/16 at 19:01; Status DC Hydromorphone HCl 1 mg 1 mg 1X ONCE IV Last administered on 09/09/16 19:21; Start 09/09/16 at 19:15; Stop 09/09/16 at 19:16; Status DC Pantoprazole Sodium/Sodium Chloride (Protonix Iv/Iv Sodium Chloride 0.9% 100ml) 100 ml @ 10 mls/hr 1X ONCE IV Last administered on 09/09/16 19:51; Start at 19:30; Stop 09/10/16 at 05:29; Status DC Ondansetron HCl 4 mg 4 mg PRN Q8HRS PRN IV NAUSEA/VOMITING Last administered on 09/09/16 19:51; Start 09/09/16 at 19:30; Stop 09/10/16 at 19:29; Status DC Sodium Chloride (Iv Sodium Chloride 0.9% 1000ml Bag) 1,000 ml @ 100 mls/hr Q10H IV Last administered on 09/09/16 19:51; Start 09/09/16 at 19:30; Stop at 06:00; Status DC Acetaminophen (Tylenol) 650 mg PRN Q4HRS PRN PO FEVER Last administered on 09/09 19:52; Start 09/09/16 at 19:30; Stop 09/10/16 at 19:29; Status DC Multi-Ingredient Mouthwash/Gargle 15 ml 15 ml 1X ONCE SWSW Last administered on 09/09/16 23:41; Start 09/09/16 at 23:30; Stop 09/09/16 at 23:31; Status DC Phytonadione/ Sodium Chloride (Vitamin K/Iv Sodium Chloride 0.9% 50ml) 51 ml @ 102 mls/hr 1X ONCE IV Last administered on 09/10/16 02:07; Start 09/10/16 at 00:00; Stop 09/10/16 at 00:29; Status DC Acetaminophen (Tylenol) 325 mg PRN Q4HRS PO ; Start 09/09/16 at 23:30; Stop at 23:30; Status DC Allopurinol (Zyloprim) 100 mg DAILY PO Last administered on 09/19/16 08:14; Start 09/10/16 at 09:00 Bisacodyl (Dulcolax Supp) 10 mg PRN DAILY PRN RC CONSTIPATION; Start 09/09/16 at 23:30 Cyclobenzaprine HCl (Flexeril) 10 mg PRN TID PRN PO back pain Last administered on 09/19/16 11:27; Start 09/09/16 at 23:30 Gabapentin (Neurontin) 300 mg DAILY PO Last administered on 09/19/16 08:14; Start 09/10/16 at 09:00 Ipratropium [place] (Atrovent) 0.2 mg QID NEB ; Start 09/10/16 at 09:00; Status UNV Lidocaine (Lidoderm) 1 patch DAILY TP Last administered on 09/19/16 08:15; Start 09/10/16 at 09:00 Nortriptyline HCl (Pamelor) 25 mg QHS PO Last administered on 09/18/16 20:43; Start 09/10/16 at 21:00 Oxycodone HCl (Oxycontin) 10 mg BID PO Last administered on 09/19/16 08:14; Start 09/10/16 at 09:00 Oxycodone/ Acetaminophen (Percocet 10/325) 1 tab PRN Q4HRS PRN PO SEVERE PAIN Last administered on 09/19/16 11:28; Start 09/09/16 at 23:30 Non-Formulary Medication 2 puff Q4HRS INH FOR ASTHMA; Start 09/10/16 at 00:00; Status UNV Carvedilol (Coreg) 25 mg BIDWMEALS PO Last administered on 09/19/16 08:16; Start 09/10/16 at 08:00 Non-Formulary Medication 1 puff BID IH ; Start 09/10/16 at 09:00; Status UNV Ondansetron HCl (Zofran Odt) 8 mg Q8HRS PO Last administered on 09/19/16 08:15 ; Start 09/10/16 at 06:00 Sertraline HCl (Zoloft) 100 mg DAILY PO Last administered on 09/19/16 08:14; Start 09/10/16 at 09:00 Labetalol HCl (Normodyne) 20 mg PRN Q2HR PRN IVP HYPERTENSION, SEE COMMENTS Last administered on 09/13/16 00:17; Start 09/09/16 at 23:30 Albuterol/ Ipratropium (Duoneb) 3 ml RTQID NEB Last administered on 09/19/16 11 :43; Start 09/10/16 at 08:00 Budesonide (Pulmicort) 0.5 mg RTBID NEB Last administered on 09/19/16 07:14; Start 09/10/16 at 08:00 Albuterol Sulfate 2.5 mg 2.5 mg PRN Q4HRS PRN NEB SHORTNESS OF BREATH; Start at 23:30 Pantoprazole Sodium 80 mg/ Sodium Chloride 100 ml @ 10 mls/hr Q10H IV Last administered on 09/13/16 07:51; Start 09/10/16 at 10:00; Stop 09/13/16 at 09:59 ; Status DC Magnesium Sulfate/ Dextrose 50 ml @ 25 mls/hr PRN DAILY PRN IV for Mag < 1.7 on am labs; Start 09/10/16 at 10:00 Sodium Chloride (Iv Sodium Chloride 0.9% 1000ml Bag) 1,000 ml @ 1,000 mls/hr Q1H PRN IV hypotension; Start 09/11/16 at 08:50; Stop 09/11/16 at 14:49; Status DC Diphenhydramine HCl (Benadryl) 25 mg 1X PRN PRN IV ITCHING; Start 09/11/16 at 09:00; Stop 09/12/16 at 08:59; Status DC Diphenhydramine HCl (Benadryl) 25 mg 1X PRN PRN IV ITCHING; Start 09/11/16 at 09:00; Stop 09/12/16 at 08:59; Status DC Sodium Chloride (Normal Saline Flush) 10 ml 1X PRN PRN IV AP catheter pack; Start 09/11/16 at 09:00; Stop 09/12/16 at 08:59; Status DC Sodium Chloride (Normal Saline Flush) 10 ml 1X PRN PRN IV [employer] catheter pack; Start 09/11/16 at 09:00; Stop 09/12/16 at 08:59; Status DC Labetalol HCl 10 mg 10 mg PRN Q1HR PRN IVP SBP > 180; Start 09/11/16 at 09:00; Stop 09/12/16 at 08:59; Status DC Sodium Chloride (Iv Sodium Chloride 0.9% 1000ml Bag) 1,000 ml @ 400 mls/hr Q2H30M PRN IV PATENCY; Start 09/11/16 at 08:50; Stop 09/11/16 at 20:49; Status DC Info (PHARMACY MONITORING -- do not chart) 1 each PRN DAILY PRN MC SEE COMMENTS ; Start 09/11/16 at 09:00 Info (PHARMACY MONITORING -- do not chart) 1 each PRN DAILY PRN MC SEE COMMENTS ; Start 09/11/16 at 09:00; Status UNV Sodium Cl/Sod Bicarb/Potass Cl/ PEG (Golytely) 4,000 ml 1X ONCE PO Last administered on 09/11/16t 17:13; Start 09/11/16 at 13:00; Stop 09/11/16 at 13:01 ; Status DC Fentanyl Citrate (Fentanyl 2ml Vial) 25 mcg PRN Q5MIN PRN IV MILD PAIN; Start 09/12/16 at 07:00; Stop 09/13/16 at 06:59; Status DC Fentanyl Citrate 50 mcg 50 mcg PRN Q5MIN PRN IV MODERATE PAIN; Start 09/12/16 at 07:00; Stop 09/13/16 at 06:59; Status DC Lactated Ringer's (Iv Lactated Ringers) 1,000 ml @ 0 mls/hr Q0M IV ; Start at 07:00; Stop 09/12/16 at 18:59; Status DC Lidocaine HCl 2 ml 1X PRN PRN ID IV START; Start 09/12/16 at 07:00; Stop at 06:59; Status DC Prochlorperazine Edisylate (Compazine) 5 mg PACU PRN PRN IV NAUSEA; Start 09/12 at 07:00; Stop 09/13/16 at 06:59; Status DC Pantoprazole Sodium 40 mg 40 mg DAILYAC IVP ; Start 09/13/16 at 07:30; Status UNV Magnesium Sulfate/ Dextrose 50 ml @ 25 mls/hr 1X ONCE IV ; Start 09/12/16 at 11 :30; Stop 09/12/16 at 13:29; Status DC Propofol 0 ml @ As Directed STK-MED ONCE IV ; Start 09/12/16 at 12:55; Stop at 12:56; Status DC Propofol (Diprivan) 20 ml @ As Directed STK-MED ONCE IV ; Start 09/12/16 at 12: 55; Stop 09/12/16 at 12:56; Status Cancel Lidocaine HCl (Lidocaine Pf 2% Vial) 5 ml STK-MED ONCE .ROUTE ; Start 09/12/16 at 12:55; Stop 09/12/16 at 12:56; Status DC Lorazepam (Ativan) 2 mg PRN Q4HRS PRN IV ANXIETY / AGITATION; Start 09/12/16 at 14:15 Lorazepam (Ativan) 2 mg Q4HRS PRN IV ANXIETY / AGITATION; Start 09/12/16 at 14: 15; Status UNV Haloperidol Lactate (Haldol) 2.5 mg PRN Q6HRS PRN IM AGITATION; Start 09/12/16 at 14:15 Haloperidol Lactate (Haldol) 2.5 mg PRN Q6HRS PRN IVP AGITATION; Start at 14:15 Lorazepam 2 mg 2 mg PRN Q4HRS PRN IM ANXIETY / AGITATION; Start 09/12/16 at 14: 30; Stop 09/17/16 at 14:37; Status DC Sodium Chloride (Iv Sodium Chloride 0.9% 1000ml Bag) 1,000 ml @ 1,000 mls/hr Q1H PRN IV hypotension; Start 09/13/16 at 08:39; Stop 09/13/16 at 14:38; Status DC Diphenhydramine HCl (Benadryl) 25 mg 1X PRN PRN IV ITCHING; Start 09/13/16 at 08:45; Stop 09/14/16 at 08:44; Status DC Diphenhydramine HCl (Benadryl) 25 mg 1X PRN PRN IV ITCHING; Start 09/13/16 at 08:45; Stop 09/14/16 at 08:44; Status DC Sodium Chloride (Normal Saline Flush) 10 ml 1X PRN PRN IV AP catheter pack; Start 09/13/16 at 08:45; Stop 09/14/16 at 08:44; Status DC Sodium Chloride (Normal Saline Flush) 10 ml 1X PRN PRN IV [employer] catheter pack; Start 09/13/16 at 08:45; Stop 09/14/16 at 08:44; Status DC Labetalol HCl (Normodyne) 10 mg PRN Q1HR PRN IVP SBP > 180; Start 09/13/16 at 08:45; Stop 09/14/16 at 08:44; Status DC Info (PHARMACY MONITORING -- do not chart) 1 each PRN DAILY PRN MC SEE COMMENTS ; Start 09/13/16 at 08:45; Status UNV Info (PHARMACY MONITORING -- do not chart) 1 each PRN DAILY PRN MC SEE COMMENTS ; Start 09/13/16 at 08:45; Status UNV Pantoprazole Sodium 40 mg 40 mg DAILYAC IVP Last administered on 09/16/16 05: 57; Start 09/13/16 at 13:00; Stop 09/17/16 at 10:02; Status DC Sodium Chloride (Iv Sodium Chloride 0.9% 1000ml Bag) 1,000 ml @ 1,000 mls/hr Q1H PRN IV hypotension; Start 09/16/16 at 08:46; Stop 09/16/16 at 14:45; Status DC Diphenhydramine HCl (Benadryl) 25 mg 1X PRN PRN IV ITCHING; Start 09/16/16 at 09:00; Stop 09/17/16 at 08:59; Status DC Diphenhydramine HCl (Benadryl) 25 mg 1X PRN PRN IV ITCHING; Start 09/16/16 at 09:00; Stop 09/17/16 at 08:59; Status DC Sodium Chloride (Normal Saline Flush) 10 ml 1X PRN PRN IV AP catheter pack; Start 09/16/16 at 09:00; Stop 09/17/16 at 08:59; Status DC Sodium Chloride (Normal Saline Flush) 10 ml 1X PRN PRN IV [employer] catheter pack; Start 09/16/16 at 09:00; Stop 09/17/16 at 08:59; Status DC Info (PHARMACY MONITORING -- do not chart) 1 each PRN DAILY PRN MC SEE COMMENTS ; Start 09/16/16 at 09:00; Status UNV Info (PHARMACY MONITORING -- do not chart) 1 each PRN DAILY PRN MC SEE COMMENTS ; Start 09/16/16 at 09:00; Status UNV Darbepoetin Ernst (Aranesp) 60 mcg WEEKLYHS SQ Last administered on 09/16/16 22 :28; Start 09/16/16 at 21:00 Pantoprazole Sodium (Protonix) 40 mg DAILYAC PO Last administered on 09/19/16 08:15; Start 09/17/16 at 10:02 Fentanyl Citrate (Fentanyl 2ml Vial) 25 mcg PRN Q5MIN PRN IV MILD PAIN; Start 09/18/16 at 07:00; Stop 09/19/16 at 06:59; Status DC Fentanyl Citrate 50 mcg 50 mcg PRN Q5MIN PRN IV MODERATE PAIN; Start 09/18/16 at 07:00; Stop 09/19/16 at 06:59; Status DC Lactated Ringer's (Iv Lactated Ringers) 1,000 ml @ 0 mls/hr Q0M IV ; Start 09/18 at 07:00; Stop 09/18/16 at 18:59; Status DC Lidocaine HCl 2 ml 1X PRN PRN ID IV START; Start 09/18/16 at 07:00; Stop at 06:59; Status DC Prochlorperazine Edisylate (Compazine) 5 mg PACU PRN PRN IV NAUSEA; Start at 07:00; Stop 09/19/16 at 06:59; Status DC Dextrose 25 gm 25 gm STK-MED ONCE IV Last administered on 09/18/16 08:19; Start 09/18/16 at 08:19; Stop 09/18/16 at 08:20; Status DC Propofol (Diprivan) 20 ml @ As Directed STK-MED ONCE IV ; Start 09/18/16 at 11:13 ; Stop 09/18/16 at 11:14; Status DC Lidocaine HCl 5 ml 5 ml STK-MED ONCE .ROUTE ; Start 09/18/16 at 11:13; Stop at 11:14; Status DC Sodium Chloride 1,000 ml @ 100 mls/hr 1X ONCE IV Last administered on 11:29; Start 09/18/16 at 11:30; Stop 09/18/16 at 21:29; Status DC Sodium Chloride (Iv Sodium Chloride 0.9% 1000ml Bag) 1,000 ml @ 1,000 mls/hr Q1H PRN IV hypotension; Start 09/18/16 at 13:47; Stop 09/18/16 at 19:46; Status DC Acetaminophen (Tylenol) 500 mg 1X PRN PRN PO MILD PAIN / TEMP; Start 09/18/16 at 14:00; Stop 09/19/16 at 13:59 Diphenhydramine HCl (Benadryl) 25 mg 1X PRN PRN IV ITCHING; Start 09/18/16 at 14 :00; Stop 09/19/16 at 13:59 Diphenhydramine HCl (Benadryl) 25 mg 1X PRN PRN IV ITCHING; Start 09/18/16 at 14 :00; Stop 09/19/16 at 13:59 Labetalol HCl 10 mg 10 mg PRN Q1HR PRN IVP SBP > 180; Start 09/18/16 at 14:00; Stop 09/19/16 at 13:59 Sodium Chloride (Iv Sodium Chloride 0.9% 1000ml Bag) 1,000 ml @ 400 mls/hr Q2H30M PRN IV PATENCY; Start 09/18/16 at 13:47; Stop 09/19/16 at 01:46; Status DC Info (PHARMACY MONITORING -- do not chart) 1 each PRN DAILY PRN MC SEE COMMENTS ; Start 09/18/16 at 14:00; Status UNV Active Scripts Active Reported [Mylanta] Tylenol (Acetaminophen) 325 Mg Tablet 1 Tab PO PRN Q4HRS Fleet Enema (Na Phos,M-B/Na Phos,Di-Ba) 133 Ml Enema 1 Each RC ONCE Dulcolax (Bisacodyl) 10 Mg Supp.rect 10 Mg RC PRN DAILY PRN Zofran Odt (Ondansetron) 8 Mg Tab.rapdis 1 Tab PO Q8HRS Nitrostat (Nitroglycerin) 0.4 Mg Tab.subl 1 Tab SL UD Cyclobenzaprine Hcl 10 Mg Tablet 1 Tab PO TID Zepatier 50-100 mg Tablet (Elbasvir/Grazoprevir) 1 Each Tablet 1 Each PO [PhosLo] Coreg (Carvedilol) 25 Mg Tablet 1 Tab PO BID Aspirin 81 Mg Tab.chew 1 Tab PO DAILY Allopurinol 100 Mg Tablet 1 Tab PO DAILY Ventolin Hfa Inhaler (Albuterol Sulfate) 18 Gm Hfa.aer.ad 2 Puff INH Q4HRS Nephplex Rx Tablet (Vit B Cmplx No3/Fa/C/Biot/Zinc) 1 Each Tablet 1 Each PO Senokot (Sennosides) 8.6 Mg Tablet 1 Tab PO BID Oxycontin (Oxycodone HCl) 10 Mg Tab.er.12h 10 Mg PO BID Glycolax (Polyethylene Glycol 3350) 119 Gm Powder 17 Gm PO UD Percocet 10-325 Mg Tablet (Oxycodone/Acetaminophen) 1 Each Tablet 1 Tab PO Q4- 6HRS Vitamin D3 (Cholecalciferol (Vitamin D3)) 1,000 Unit Tablet 1 Tab PO DAILY Advair 250-50 Diskus (Fluticasone/Salmeterol) 1 Each Disk.w.dev 1 Puff IH BID Ipratropium [place] 0.2 Mg/1 Ml Solution 1 Vial NEB QID Lidoderm (Lidocaine) 700 Mg Adh..patch 1 Patch TP DAILY Nortriptyline Hcl 25 Mg Capsule 1 Cap PO QHS Ciprofloxacin Hcl 250 Mg Tablet 1 Tab PO BID Warfarin Sodium 2 Mg Tablet 1.5 Mg PO DAILY Gabapentin 300 Mg Capsule 300 Mg PO TID Zoloft (Sertraline Hcl) 100 Mg Tablet 1 Tab PO DAILY Vitals/I & O Vital Sign - Last 24 Hours 09/18/16 09/18/16 09/18/16 09/18/16 12:48 12:49 13:37 16:43 Resp 20 20 Pulse Ox 97 97 97 97 O2 Delivery Room Air Room Air O2 Flow Rate 2.0 2.0 09/18/16 09/18/16 09/18/16 09/18/16 19:30 19:31 19:56 19:59 Temp 99.0 99.0 Resp 22 B/P 126/56 Pulse Ox 100 100 90 O2 Delivery Room Air Room Air Room Air Room Air 09/18/16 09/18/16 09/18/16 09/18/16 20:00 20:44 20:56 23:59 Temp 98.5 98.5 Pulse 96 Resp 20 20 18 B/P 92/42 Pulse Ox 99 O2 Delivery Room Air Room Air Room Air Room Air O2 Flow Rate 2.0 09/19/16 09/19/16 09/19/16 09/19/16 00:44 03:19 07:15 07:55 Temp 98.9 98.2 98.9 98.2 Pulse 100 80 Resp 20 20 20 B/P 123/69 152/65 Pulse Ox 93 97 94 O2 Delivery Room Air Room Air Room Air Room Air 09/19/16 09/19/16 09/19/16 09/19/16 08:16 09:57 10:00 11:43 Temp 98.7 98.7 98.7 98.7 Pulse 100 88 88 Resp 20 B/P 123/69 97/78 97/78 Pulse Ox 95 95 O2 Delivery Room Air Room Air Room Air O2 Flow Rate 2.0 Intake and Output 09/18/16 09/18/16 09/19/16 15:00 23:00 07:00 Intake Total 240 ml 50 ml Output Total 200 ml Balance 40 ml 50 ml KURT LUND MD Sep 19, 2016 12:50
--- NOTE | 2016-09-19 15:44 | RAD ---
Exam performed: X-ray lumbar spine 3 views. History: Back pain. Date of service: 09/19/16. Comparison: 05/29/05. Findings: AP, lateral and coned view of lumbosacral junction are obtained. Normal sagittal alignment is preserved. There is generalized osteopenia. Loss of height of several lumbar vertebral bodies are seen with sclerosis and diffuse osteophytic spurring. There is minimal grade 1 retrolisthesis of L3 over L4 and L2 over L3. No prevertebral soft tissue swelling is identified. Nonspecific bowel gas pattern. A hernia repair mesh is seen in the lower mid and left abdomen. Cholecystectomy. Impression: 1. Loss of height of several lumbar vertebral bodies represent compression fracture of undetermined age. Note is made that L3 compression fracture was previously seen. Correlate with area of focal pain and if indicated evaluation with MRI lumbar spine are bone scan may be of additional benefit to evaluate acute compression fracture. 2. 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
[2016-09-19] MEDS: NORTRIPTYLINE 25 MG CAPSULE PO SCH (20:46)
[2016-09-20] MEDS: ONDANSETRON ODT 4 MG TAB.RAPDIS PO SCH ×3 (05:55→21:07)
[2016-09-20] MEDS: OXYCODONE/APAP 10/325 TABLET. PO PRN ×2 (06:11→17:31)
[2016-09-20 07:00] VITALS: BP 165/81
[2016-09-20] MEDS: BUDESONIDE 0.5 MG/2 ML NEBU NEB SCH ×2 (07:14→19:27)
[2016-09-20] MEDS: IPRATRPIUM/ALBUTEROL 0.5/2.5MG 3 ML NEBU. NEB SCH ×4 (07:14→19:27)
[2016-09-20] MEDS ORDERED: IV NORMAL SALINE 1000ML BAG 1,000 ML IV PRN ×2 (07:30→07:45)
[2016-09-20] MEDS ORDERED: ALBUMIN HUMAN 25% 200 ML IV PRN (07:45)
[2016-09-20] MEDS ORDERED: DIPHENHYDRAMINE 50 MG/ML VIAL IV PRN ×2 (07:45)
[2016-09-20] MEDS ORDERED: ACETAMINOPHEN 500 MG TABLET PO PRN (07:45)
[2016-09-20] MEDS ORDERED: LABETALOL 20 MG/4 ML DISP.SYRIN. IVP PRN (07:45)
[2016-09-20] MEDS ORDERED: 0.9 % SODIUM CHLORIDE 10 ML DISP.SYRIN. IV PRN ×2 (07:45)
[2016-09-20] MEDS ORDERED: DIALYSIS PATIENT. MC PRN (07:45)
[2016-09-20 08:43] LABS: BASO % 0 % (0-3); EOS % 2 % (0-3); HEMATOCRIT 23.7 % (36.0-47.0); HEMOGLOBIN 7.8 g/dL (12.0-15.5); LYMPH # 1.9 x10^3/uL (1.0-4.8); LYMPH % 24 % (24-48); MEAN CORPUSCULAR HEMOGLOBIN 28 pg (25-35); MEAN CORPUSCULAR HGB CONC 33 g/dL (31-37); MEAN CORPUSCULAR VOLUME 84 fL (79-100); MONO % 7 % (0-9); NEUT % 67 % (31-73); PLATELET COUNT 271 x10^3/uL (140-400); RED BLOOD COUNT 2.82 x10^6/uL (3.50-5.40); RED CELL DISTRIBUTION WIDTH 16.6 % (11.5-14.5); WHITE BLOOD COUNT 8.1 x10^3/uL (4.0-11.0)
[2016-09-20 08:55] LABS: CALCIUM 7.9 mg/dL (8.5-10.1); CREATININE 2.5 mg/dL (0.6-1.0); GFR 23.8; POTASSIUM 3.8 mmol/L (3.5-5.1)
--- NOTE | 2016-09-20 10:58 | PDOC ---
PROGRESS NOTES Chief Complaint Chief Complaint 1. Acute blood loss anemia, GI bleed, unclear source. 2. ESRD, on HD 3. INR 1.9, Off Coumadin. 4. Hypertension 5. Asthma 6. Obesity 7. Back pain Plan s/p EGD, colonoscopy Normal per pt, last year resume Coumadin monitor hemoglobin PT/OT HD SNU placement pending. lumbar x -ray- compression fracture, old vs new, consult Dr Gurrola and Rolando. pain control GI follow up as out pt. History of Present Illness History of Present Illness c/o back pain no fever no tenderness Vitals Vitals Vital Signs Date Time Temp Pulse Resp B/P Pulse Ox O2 Delivery O2 Flow Rate FiO2 09/20/16 07:14 95 Room Air 09/20/16 07:00 97.8 75 20 165/81 97.8 09/19/16 20:00 2.0 Physical Exam General: Alert, Oriented X3, Cooperative, No acute distress Heart: Normal S1, Normal S2 Lungs: Clear Abdomen: Normal bowel sounds, Soft, No tenderness, No hepatosplenomegaly Extremities: No clubbing, No cyanosis, Other (back, no spinal tenderness. ) Skin: No rashes, No significant lesion, Other Labs LABS Laboratory Tests Test 09/20/16 08:15 White Blood Count 8.1x10^3/uL (4.0-11.0) Red Blood Count 2.82x10^6/uL (3.50-5.40) Hemoglobin 7.8g/dL (12.0-15.5) Hematocrit 23.7% (36.0-47.0) Mean Corpuscular Volume 84fL (79-100) Mean Corpuscular Hemoglobin 28pg (25-35) Mean Corpuscular Hemoglobin Concent 33g/dL (31-37) Red Cell Distribution Width 16.6% (11.5-14.5) Platelet Count 271x10^3/uL (140-400) Neutrophils (%) (Auto) 67% (31-73) Lymphocytes (%) (Auto) 24% (24-48) Monocytes (%) (Auto) 7% (0-9) Eosinophils (%) (Auto) 2% (0-3) Basophils (%) (Auto) 0% (0-3) Neutrophils # (Auto) 5.4x10^3uL (1.8-7.7) Lymphocytes # (Auto) 1.9x10^3/uL (1.0-4.8) Monocytes # (Auto) 0.6x10^3/uL (0.0-1.1) Eosinophils # (Auto) 0.2x10^3/uL (0.0-0.7) Basophils # (Auto) 0.0x10^3/uL (0.0-0.2) Sodium Level 131mmol/L (136-145) Potassium Level 3.8mmol/L (3.5-5.1) Chloride Level 100mmol/L (98-107) Carbon Dioxide Level 29mmol/L (21-32) Anion Gap 2 (6-14) Blood Urea Nitrogen 15mg/dL (7-20) Creatinine 2.5mg/dL (0.6-1.0) Estimated GFR (Cockcroft-Gault) 23.8 Glucose Level 90mg/dL (70-99) Calcium Level 7.9mg/dL (8.5-10.1) Assessment and Plan Assessmemt and Plan Problems Medical Problems: (1) Anemia Status: Acute (2) Coagulopathy Status: Acute (3) Coumadin toxicity Status: Acute (4) Elevated INR (international normalized ratio) due to prior anticoagulant medication ingestion Status: Acute (5) ESRD on dialysis Status: Acute (6) GI bleed Status: Acute Problems: Comment Review of Relevant I have reviewed the following items christi (where applicable) has been applied. Labs Laboratory Tests Test 09/18/16 17:03 09/19/16 06:20 09/20/16 08:15 Glucose (Fingerstick) 103mg/dL (70-99) White Blood Count 8.9x10^3/uL (4.0-11.0) 8.1x10^3/uL (4.0-11.0) Red Blood Count 2.81x10^6/uL (3.50-5.40) 2.82x10^6/uL (3.50-5.40) Hemoglobin 7.6g/dL (12.0-15.5) 7.8g/dL (12.0-15.5) Hematocrit 23.4% (36.0-47.0) 23.7% (36.0-47.0) Mean Corpuscular Volume 83fL (79-100) 84fL (79-100) Mean Corpuscular Hemoglobin 27pg (25-35) 28pg (25-35) Mean Corpuscular Hemoglobin Concent 33g/dL (31-37) 33g/dL (31-37) Red Cell Distribution Width 16.6% (11.5-14.5) 16.6% (11.5-14.5) Platelet Count 299x10^3/uL (140-400) 271x10^3/uL (140-400) Neutrophils (%) (Auto) 54% (31-73) 67% (31-73) Lymphocytes (%) (Auto) 32% (24-48) 24% (24-48) Monocytes (%) (Auto) 11% (0-9) 7% (0-9) Eosinophils (%) (Auto) 2% (0-3) 2% (0-3) Basophils (%) (Auto) 1% (0-3) 0% (0-3) Neutrophils # (Auto) 4.8x10^3uL (1.8-7.7) 5.4x10^3uL (1.8-7.7) Lymphocytes # (Auto) 2.9x10^3/uL (1.0-4.8) 1.9x10^3/uL (1.0-4.8) Monocytes # (Auto) 0.9x10^3/uL (0.0-1.1) 0.6x10^3/uL (0.0-1.1) Eosinophils # (Auto) 0.2x10^3/uL (0.0-0.7) 0.2x10^3/uL (0.0-0.7) Basophils # (Auto) 0.1x10^3/uL (0.0-0.2) 0.0x10^3/uL (0.0-0.2) Sodium Level 135mmol/L (136-145) 131mmol/L (136-145) Potassium Level 4.0mmol/L (3.5-5.1) 3.8mmol/L (3.5-5.1) Chloride Level 101mmol/L (98-107) 100mmol/L (98-107) Carbon Dioxide Level 31mmol/L (21-32) 29mmol/L (21-32) Anion Gap 3 (6-14) 2 (6-14) Blood Urea Nitrogen 10mg/dL (7-20) 15mg/dL (7-20) Creatinine 2.4mg/dL (0.6-1.0) 2.5mg/dL (0.6-1.0) Estimated GFR (Cockcroft-Gault) 24.9 23.8 Glucose Level 82mg/dL (70-99) 90mg/dL (70-99) Calcium Level 7.8mg/dL (8.5-10.1) 7.9mg/dL (8.5-10.1) Hepatitis B Surface Antigen Negative (Negative) Laboratory Tests Test 09/20/16 08:15 White Blood Count 8.1x10^3/uL (4.0-11.0) Red Blood Count 2.82x10^6/uL (3.50-5.40) Hemoglobin 7.8g/dL (12.0-15.5) Hematocrit 23.7% (36.0-47.0) Mean Corpuscular Volume 84fL (79-100) Mean Corpuscular Hemoglobin 28pg (25-35) Mean Corpuscular Hemoglobin Concent 33g/dL (31-37) Red Cell Distribution Width 16.6% (11.5-14.5) Platelet Count 271x10^3/uL (140-400) Neutrophils (%) (Auto) 67% (31-73) Lymphocytes (%) (Auto) 24% (24-48) Monocytes (%) (Auto) 7% (0-9) Eosinophils (%) (Auto) 2% (0-3) Basophils (%) (Auto) 0% (0-3) Neutrophils # (Auto) 5.4x10^3uL (1.8-7.7) Lymphocytes # (Auto) 1.9x10^3/uL (1.0-4.8) Monocytes # (Auto) 0.6x10^3/uL (0.0-1.1) Eosinophils # (Auto) 0.2x10^3/uL (0.0-0.7) Basophils # (Auto) 0.0x10^3/uL (0.0-0.2) Sodium Level 131mmol/L (136-145) Potassium Level 3.8mmol/L (3.5-5.1) Chloride Level 100mmol/L (98-107) Carbon Dioxide Level 29mmol/L (21-32) Anion Gap 2 (6-14) Blood Urea Nitrogen 15mg/dL (7-20) Creatinine 2.5mg/dL (0.6-1.0) Estimated GFR (Cockcroft-Gault) 23.8 Glucose Level 90mg/dL (70-99) Calcium Level 7.9mg/dL (8.5-10.1) Medications Current Medications Oxycodone/ Acetaminophen (Percocet 5/325) 1 tab 1X ONCE PO ; Start 09/09/16 at 19:00; Stop 09/09/16 at 19:01; Status DC Hydromorphone HCl 1 mg 1 mg 1X ONCE IV Last administered on 09/09/16 19:21; Start 09/09/16 at 19:15; Stop 09/09/16 at 19:16; Status DC Pantoprazole Sodium/Sodium Chloride (Protonix Iv/Iv Sodium Chloride 0.9% 100ml) 100 ml @ 10 mls/hr 1X ONCE IV Last administered on 09/09/16 19:51; Start at 19:30; Stop 09/10/16 at 05:29; Status DC Ondansetron HCl 4 mg 4 mg PRN Q8HRS PRN IV NAUSEA/VOMITING Last administered on 09/09/16 19:51; Start 09/09/16 at 19:30; Stop 09/10/16 at 19:29; Status DC Sodium Chloride (Iv Sodium Chloride 0.9% 1000ml Bag) 1,000 ml @ 100 mls/hr Q10H IV Last administered on 09/09/16 19:51; Start 09/09/16 at 19:30; Stop at 06:00; Status DC Acetaminophen (Tylenol) 650 mg PRN Q4HRS PRN PO FEVER Last administered on 09/09 19:52; Start 09/09/16 at 19:30; Stop 09/10/16 at 19:29; Status DC Multi-Ingredient Mouthwash/Gargle 15 ml 15 ml 1X ONCE SWSW Last administered on 09/09/16 23:41; Start 09/09/16 at 23:30; Stop 09/09/16 at 23:31; Status DC Phytonadione/ Sodium Chloride (Vitamin K/Iv Sodium Chloride 0.9% 50ml) 51 ml @ 102 mls/hr 1X ONCE IV Last administered on 09/10/16 02:07; Start 09/10/16 at 00:00; Stop 09/10/16 at 00:29; Status DC Acetaminophen (Tylenol) 325 mg PRN Q4HRS PO ; Start 09/09/16 at 23:30; Stop at 23:30; Status DC Allopurinol (Zyloprim) 100 mg DAILY PO Last administered on 09/19/16 08:14; Start 09/10/16 at 09:00 Bisacodyl (Dulcolax Supp) 10 mg PRN DAILY PRN RC CONSTIPATION; Start 09/09/16 at 23:30 Cyclobenzaprine HCl (Flexeril) 10 mg PRN TID PRN PO back pain Last administered on 09/19/16 20:46; Start 09/09/16 at 23:30 Gabapentin (Neurontin) 300 mg DAILY PO Last administered on 09/19/16 08:14; Start 09/10/16 at 09:00 Ipratropium [place] (Atrovent) 0.2 mg QID NEB ; Start 09/10/16 at 09:00; Status UNV Lidocaine (Lidoderm) 1 patch DAILY TP Last administered on 09/19/16 08:15; Start 09/10/16 at 09:00 Nortriptyline HCl (Pamelor) 25 mg QHS PO Last administered on 09/19/16 20:46; Start 09/10/16 at 21:00 Oxycodone HCl (Oxycontin) 10 mg BID PO Last administered on 09/19/16 20:48; Start 09/10/16 at 09:00 Oxycodone/ Acetaminophen (Percocet 10/325) 1 tab PRN Q4HRS PRN PO SEVERE PAIN Last administered on 09/20/16 06:11; Start 09/09/16 at 23:30 Non-Formulary Medication 2 puff Q4HRS INH FOR ASTHMA; Start 09/10/16 at 00:00; Status UNV Carvedilol (Coreg) 25 mg BIDWMEALS PO Last administered on 09/19/16 17:28; Start 09/10/16 at 08:00 Non-Formulary Medication 1 puff BID IH ; Start 09/10/16 at 09:00; Status UNV Ondansetron HCl (Zofran Odt) 8 mg Q8HRS PO Last administered on 09/19/16 08:15 ; Start 09/10/16 at 06:00 Sertraline HCl (Zoloft) 100 mg DAILY PO Last administered on 09/19/16 08:14; Start 09/10/16 at 09:00 Labetalol HCl (Normodyne) 20 mg PRN Q2HR PRN IVP HYPERTENSION, SEE COMMENTS Last administered on 09/13/16 00:17; Start 09/09/16 at 23:30 Albuterol/ Ipratropium (Duoneb) 3 ml RTQID NEB Last administered on 09/20/16 07 :14; Start 09/10/16 at 08:00 Budesonide (Pulmicort) 0.5 mg RTBID NEB Last administered on 09/20/16 07:14; Start 09/10/16 at 08:00 Albuterol Sulfate 2.5 mg 2.5 mg PRN Q4HRS PRN NEB SHORTNESS OF BREATH; Start at 23:30 Pantoprazole Sodium 80 mg/ Sodium Chloride 100 ml @ 10 mls/hr Q10H IV Last administered on 09/13/16 07:51; Start 09/10/16 at 10:00; Stop 09/13/16 at 09:59 ; Status DC Magnesium Sulfate/ Dextrose 50 ml @ 25 mls/hr PRN DAILY PRN IV for Mag < 1.7 on am labs; Start 09/10/16 at 10:00 Sodium Chloride (Iv Sodium Chloride 0.9% 1000ml Bag) 1,000 ml @ 1,000 mls/hr Q1H PRN IV hypotension; Start 09/11/16 at 08:50; Stop 09/11/16 at 14:49; Status DC Diphenhydramine HCl (Benadryl) 25 mg 1X PRN PRN IV ITCHING; Start 09/11/16 at 09:00; Stop 09/12/16 at 08:59; Status DC Diphenhydramine HCl (Benadryl) 25 mg 1X PRN PRN IV ITCHING; Start 09/11/16 at 09:00; Stop 09/12/16 at 08:59; Status DC Sodium Chloride (Normal Saline Flush) 10 ml 1X PRN PRN IV AP catheter pack; Start 09/11/16 at 09:00; Stop 09/12/16 at 08:59; Status DC Sodium Chloride (Normal Saline Flush) 10 ml 1X PRN PRN IV FLUID POWER MECHANIC catheter pack; Start 09/11/16 at 09:00; Stop 09/12/16 at 08:59; Status DC Labetalol HCl 10 mg 10 mg PRN Q1HR PRN IVP SBP > 180; Start 09/11/16 at 09:00; Stop 09/12/16 at 08:59; Status DC Sodium Chloride (Iv Sodium Chloride 0.9% 1000ml Bag) 1,000 ml @ 400 mls/hr Q2H30M PRN IV PATENCY; Start 09/11/16 at 08:50; Stop 09/11/16 at 20:49; Status DC Info (PHARMACY MONITORING -- do not chart) 1 each PRN DAILY PRN MC SEE COMMENTS ; Start 09/11/16 at 09:00 Info (PHARMACY MONITORING -- do not chart) 1 each PRN DAILY PRN MC SEE COMMENTS ; Start 09/11/16 at 09:00; Status UNV Sodium Cl/Sod Bicarb/Potass Cl/ PEG (Golytely) 4,000 ml 1X ONCE PO Last administered on 09/11/16t 17:13; Start 09/11/16 at 13:00; Stop 09/11/16 at 13:01 ; Status DC Fentanyl Citrate (Fentanyl 2ml Vial) 25 mcg PRN Q5MIN PRN IV MILD PAIN; Start 09/12/16 at 07:00; Stop 09/13/16 at 06:59; Status DC Fentanyl Citrate 50 mcg 50 mcg PRN Q5MIN PRN IV MODERATE PAIN; Start 09/12/16 at 07:00; Stop 09/13/16 at 06:59; Status DC Lactated Ringer's (Iv Lactated Ringers) 1,000 ml @ 0 mls/hr Q0M IV ; Start at 07:00; Stop 09/12/16 at 18:59; Status DC Lidocaine HCl 2 ml 1X PRN PRN ID IV START; Start 09/12/16 at 07:00; Stop at 06:59; Status DC Prochlorperazine Edisylate (Compazine) 5 mg PACU PRN PRN IV NAUSEA; Start 09/12 at 07:00; Stop 09/13/16 at 06:59; Status DC Pantoprazole Sodium 40 mg 40 mg DAILYAC IVP ; Start 09/13/16 at 07:30; Status UNV Magnesium Sulfate/ Dextrose 50 ml @ 25 mls/hr 1X ONCE IV ; Start 09/12/16 at 11 :30; Stop 09/12/16 at 13:29; Status DC Propofol 0 ml @ As Directed STK-MED ONCE IV ; Start 09/12/16 at 12:55; Stop at 12:56; Status DC Propofol (Diprivan) 20 ml @ As Directed STK-MED ONCE IV ; Start 09/12/16 at 12: 55; Stop 09/12/16 at 12:56; Status Cancel Lidocaine HCl (Lidocaine Pf 2% Vial) 5 ml STK-MED ONCE .ROUTE ; Start 09/12/16 at 12:55; Stop 09/12/16 at 12:56; Status DC Lorazepam (Ativan) 2 mg PRN Q4HRS PRN IV ANXIETY / AGITATION; Start 09/12/16 at 14:15 Lorazepam (Ativan) 2 mg Q4HRS PRN IV ANXIETY / AGITATION; Start 09/12/16 at 14: 15; Status UNV Haloperidol Lactate (Haldol) 2.5 mg PRN Q6HRS PRN IM AGITATION; Start 09/12/16 at 14:15 Haloperidol Lactate (Haldol) 2.5 mg PRN Q6HRS PRN IVP AGITATION; Start at 14:15 Lorazepam 2 mg 2 mg PRN Q4HRS PRN IM ANXIETY / AGITATION; Start 09/12/16 at 14: 30; Stop 09/17/16 at 14:37; Status DC Sodium Chloride (Iv Sodium Chloride 0.9% 1000ml Bag) 1,000 ml @ 1,000 mls/hr Q1H PRN IV hypotension; Start 09/13/16 at 08:39; Stop 09/13/16 at 14:38; Status DC Diphenhydramine HCl (Benadryl) 25 mg 1X PRN PRN IV ITCHING; Start 09/13/16 at 08:45; Stop 09/14/16 at 08:44; Status DC Diphenhydramine HCl (Benadryl) 25 mg 1X PRN PRN IV ITCHING; Start 09/13/16 at 08:45; Stop 09/14/16 at 08:44; Status DC Sodium Chloride (Normal Saline Flush) 10 ml 1X PRN PRN IV AP catheter pack; Start 09/13/16 at 08:45; Stop 09/14/16 at 08:44; Status DC Sodium Chloride (Normal Saline Flush) 10 ml 1X PRN PRN IV FLUID [employer] MECHANIC catheter pack; Start 09/13/16 at 08:45; Stop 09/14/16 at 08:44; Status DC Labetalol HCl (Normodyne) 10 mg PRN Q1HR PRN IVP SBP > 180; Start 09/13/16 at 08:45; Stop 09/14/16 at 08:44; Status DC Info (PHARMACY MONITORING -- do not chart) 1 each PRN DAILY PRN MC SEE COMMENTS ; Start 09/13/16 at 08:45; Status UNV Info (PHARMACY MONITORING -- do not chart) 1 each PRN DAILY PRN MC SEE COMMENTS ; Start 09/13/16 at 08:45; Status UNV Pantoprazole Sodium 40 mg 40 mg DAILYAC IVP Last administered on 09/16/16t 05: 57; Start 09/13/16 at 13:00; Stop 09/17/16 at 10:02; Status DC Sodium Chloride (Iv Sodium Chloride 0.9% 1000ml Bag) 1,000 ml @ 1,000 mls/hr Q1H PRN IV hypotension; Start 09/16/16 at 08:46; Stop 09/16/16 at 14:45; Status DC Diphenhydramine HCl (Benadryl) 25 mg 1X PRN PRN IV ITCHING; Start 09/16/16 at 09:00; Stop 09/17/16 at 08:59; Status DC Diphenhydramine HCl (Benadryl) 25 mg 1X PRN PRN IV ITCHING; Start 09/16/16 at 09:00; Stop 09/17/16 at 08:59; Status DC Sodium Chloride (Normal Saline Flush) 10 ml 1X PRN PRN IV AP catheter pack; Start 09/16/16 at 09:00; Stop 09/17/16 at 08:59; Status DC Sodium Chloride (Normal Saline Flush) 10 ml 1X PRN PRN IV FLUID [employer] MECH[employer]IC catheter pack; Start 09/16/16 at 09:00; Stop 09/17/16 at 08:59; Status DC Info (PHARMACY MONITORING -- do not chart) 1 each PRN DAILY PRN MC SEE COMMENTS ; Start 09/16/16 at 09:00; Status UNV Info (PHARMACY MONITORING -- do not chart) 1 each PRN DAILY PRN MC SEE COMMENTS ; Start 09/16/16 at 09:00; Status UNV Darbepoetin Ernst (Aranesp) 60 mcg WEEKLYHS SQ Last administered on 09/16/16 22 :28; Start 09/16/16 at 21:00 Pantoprazole Sodium (Protonix) 40 mg DAILYAC PO Last administered on 09/19/16 08:15; Start 09/17/16 at 10:02 Fentanyl Citrate (Fentanyl 2ml Vial) 25 mcg PRN Q5MIN PRN IV MILD PAIN; Start 09/18/16 at 07:00; Stop 09/19/16 at 06:59; Status DC Fentanyl Citrate 50 mcg 50 mcg PRN Q5MIN PRN IV MODERATE PAIN; Start 09/18/16 at 07:00; Stop 09/19/16 at 06:59; Status DC Lactated Ringer's (Iv Lactated Ringers) 1,000 ml @ 0 mls/hr Q0M IV ; Start 09/18 at 07:00; Stop 09/18/16 at 18:59; Status DC Lidocaine HCl 2 ml 1X PRN PRN ID IV START; Start 09/18/16 at 07:00; Stop at 06:59; Status DC Prochlorperazine Edisylate (Compazine) 5 mg PACU PRN PRN IV NAUSEA; Start at 07:00; Stop 09/19/16 at 06:59; Status DC Dextrose 25 gm 25 gm STK-MED ONCE IV Last administered on 3/1/17at 08:19; Start 09/18/16 at 08:19; Stop 09/18/16 at 08:20; Status DC Propofol (Diprivan) 20 ml @ As Directed STK-MED ONCE IV ; Start 09/18/16 at 11:13 ; Stop 09/18/16 at 11:14; Status DC Lidocaine HCl 5 ml 5 ml STK-MED ONCE .ROUTE ; Start 09/18/16 at 11:13; Stop at 11:14; Status DC Sodium Chloride 1,000 ml @ 100 mls/hr 1X ONCE IV Last administered on t 11:29; Start 09/18/16 at 11:30; Stop 09/18/16 at 21:29; Status DC Sodium Chloride (Iv Sodium Chloride 0.9% 1000ml Bag) 1,000 ml @ 1,000 mls/hr Q1H PRN IV hypotension; Start 09/18/16 at 13:47; Stop 09/18/16 at 19:46; Status DC Acetaminophen (Tylenol) 500 mg 1X PRN PRN PO MILD PAIN / TEMP; Start 09/18/16 at 14:00; Stop 09/19/16 at 13:59; Status DC Diphenhydramine HCl (Benadryl) 25 mg 1X PRN PRN IV ITCHING; Start 09/18/16 at 14 :00; Stop 09/19/16 at 13:59; Status DC Diphenhydramine HCl (Benadryl) 25 mg 1X PRN PRN IV ITCHING; Start 09/18/16 at 14 :00; Stop 09/19/16 at 13:59; Status DC Labetalol HCl 10 mg 10 mg PRN Q1HR PRN IVP SBP > 180; Start 09/18/16 at 14:00; Stop 09/19/16 at 13:59; Status DC Sodium Chloride (Iv Sodium Chloride 0.9% 1000ml Bag) 1,000 ml @ 400 mls/hr Q2H30M PRN IV PATENCY; Start 09/18/16 at 13:47; Stop 09/19/16 at 01:46; Status DC Info 1 each 1 each PRN DAILY PRN MC SEE COMMENTS; Start 09/18/16 at 14:00; Status UNV Sodium Chloride 1,000 ml @ 1,000 mls/hr Q1H PRN IV hypotension; Start 09/20/16 at 07:30; Stop 09/20/16 at 18:00 Albumin Human (Albuminar) 200 ml @ 200 mls/hr 1X PRN PRN IV Hypotension; Start 09/20/16 at 07:45; Stop 09/20/16 at 14:00 Acetaminophen (Tylenol) 500 mg 1X PRN PRN PO MILD PAIN / TEMP; Start 09/20/16 at 07:45; Stop 09/20/16 at 18:00 Diphenhydramine HCl (Benadryl) 25 mg 1X PRN PRN IV ITCHING; Start 09/20/16 at 07 :45; Stop 09/20/16 at 18:00 Diphenhydramine HCl (Benadryl) 25 mg 1X PRN PRN IV ITCHING; Start 09/20/16 at 07 :45; Stop 09/20/16 at 18:00 Sodium Chloride (Normal Saline Flush) 10 ml 1X PRN PRN IV AP catheter pack; Start 09/20/16 at 07:45; Stop 09/20/16 at 18:00 Sodium Chloride (Normal Saline Flush) 10 ml 1X PRN PRN IV FLUID POWER MECHANIC catheter pack; Start 09/20/16 at 07:45; Stop 09/20/16 at 18:00 Labetalol HCl 10 mg 10 mg PRN Q1HR PRN IVP SBP > 180; Start 09/20/16 at 07:45; Stop 09/20/16 at 18:00 Sodium Chloride (Iv Sodium Chloride 0.9% 1000ml Bag) 1,000 ml @ 400 mls/hr Q2H30M PRN IV PATENCY; Start 09/20/16 at 07:45; Stop 09/20/16 at 18:00 Info (PHARMACY MONITORING -- do not chart) 1 each PRN DAILY PRN MC SEE COMMENTS ; Start 09/20/16 at 07:45; Status UNV Active Scripts Active Reported [Mylanta] Tylenol (Acetaminophen) 325 Mg Tablet 1 Tab PO PRN Q4HRS Fleet Enema (Na Phos,M-B/Na Phos,Di-Ba) 133 Ml Enema 1 Each RC ONCE Dulcolax (Bisacodyl) 10 Mg Supp.rect 10 Mg RC PRN DAILY PRN Zofran Odt (Ondansetron) 8 Mg Tab.rapdis 1 Tab PO Q8HRS Nitrostat (Nitroglycerin) 0.4 Mg Tab.subl 1 Tab SL UD Cyclobenzaprine Hcl 10 Mg Tablet 1 Tab PO TID Zepatier 50-100 mg Tablet (Elbasvir/Grazoprevir) 1 Each Tablet 1 Each PO [PhosLo] Coreg (Carvedilol) 25 Mg Tablet 1 Tab PO BID Aspirin 81 Mg Tab.chew 1 Tab PO DAILY Allopurinol 100 Mg Tablet 1 Tab PO DAILY Ventolin Hfa Inhaler (Albuterol Sulfate) 18 Gm Hfa.aer.ad 2 Puff INH Q4HRS Nephplex Rx Tablet (Vit B Cmplx No3/Fa/C/Biot/Zinc) 1 Each Tablet 1 Each PO Senokot (Sennosides) 8.6 Mg Tablet 1 Tab PO BID Oxycontin (Oxycodone HCl) 10 Mg Tab.er.12h 10 Mg PO BID Glycolax (Polyethylene Glycol 3350) 119 Gm Powder 17 Gm PO UD Percocet 10-325 Mg Tablet (Oxycodone/Acetaminophen) 1 Each Tablet 1 Tab PO Q4- 6HRS Vitamin D3 (Cholecalciferol (Vitamin D3)) 1,000 Unit Tablet 1 Tab PO DAILY Advair 250-50 Diskus (Fluticasone/Salmeterol) 1 Each Disk.w.dev 1 Puff IH BID Ipratropium [place] 0.2 Mg/1 Ml Solution 1 Vial NEB QID Lidoderm (Lidocaine) 700 Mg Adh..patch 1 Patch TP DAILY Nortriptyline Hcl 25 Mg Capsule 1 Cap PO QHS Ciprofloxacin Hcl 250 Mg Tablet 1 Tab PO BID Warfarin Sodium 2 Mg Tablet 1.5 Mg PO DAILY Gabapentin 300 Mg Capsule 300 Mg PO TID Zoloft (Sertraline Hcl) 100 Mg Tablet 1 Tab PO DAILY Vitals/I & O Vital Sign - Last 24 Hours 09/19/16 09/19/16 09/19/16 09/19/16 11:43 14:11 16:10 17:28 Temp 98.5 98.5 Pulse 82 82 Resp 20 B/P 110/65 110/65 Pulse Ox 96 O2 Delivery Room Air Room Air Room Air 09/19/16 09/19/16 09/19/16 09/19/16 19:00 20:00 20:48 21:08 Temp 98.4 98.4 Pulse 77 Resp 19 20 B/P 119/68 Pulse Ox 94 98 O2 Delivery Room Air Room Air Room Air Room Air O2 Flow Rate 2.0 09/19/16 09/20/16 09/20/16 09/20/16 23:04 06:11 07:00 07:14 Temp 97.8 97.8 97.8 97.8 Pulse 70 75 Resp 19 20 20 B/P 113/59 165/81 Pulse Ox 95 97 95 O2 Delivery Room Air Room Air Room Air Intake and Output 09/19/16 09/19/16 09/20/16 15:00 23:00 07:00 Intake Total 1100 ml Balance 1100 ml KURT LUND MD Sep 20, 2016 10:58
--- NOTE | 2016-09-20 11:43 | PDOC ---
Subjective: Subjective: Some abd discomfort around umbilicus -around site of previous hernia repair w/ mesh. Otherwise okay. Objective: Vital Signs: Vital Signs Date Time Temp Pulse Resp B/P Pulse Ox O2 Delivery O2 Flow Rate FiO2 09/20/16 07:14 95 Room Air 09/20/16 07:00 97.8 75 20 165/81 97.8 09/19/16 20:00 2.0 Labs: Laboratory Tests Test 09/20/16 08:15 White Blood Count 8.1x10^3/uL Red Blood Count 2.82x10^6/uL Hemoglobin 7.8g/dL Hematocrit 23.7% Mean Corpuscular Volume 84fL Mean Corpuscular Hemoglobin 28pg Mean Corpuscular Hemoglobin Concent 33g/dL Red Cell Distribution Width 16.6% Platelet Count 271x10^3/uL Neutrophils (%) (Auto) 67% Lymphocytes (%) (Auto) 24% Monocytes (%) (Auto) 7% Eosinophils (%) (Auto) 2% Basophils (%) (Auto) 0% Neutrophils # (Auto) 5.4x10^3uL Lymphocytes # (Auto) 1.9x10^3/uL Monocytes # (Auto) 0.6x10^3/uL Eosinophils # (Auto) 0.2x10^3/uL Basophils # (Auto) 0.0x10^3/uL Sodium Level 131mmol/L Potassium Level 3.8mmol/L Chloride Level 100mmol/L Carbon Dioxide Level 29mmol/L Anion Gap 2 Blood Urea Nitrogen 15mg/dL Creatinine 2.5mg/dL Estimated GFR (Cockcroft-Gault) 23.8 Glucose Level 90mg/dL Calcium Level 7.9mg/dL PE: GEN: NAD, dialyzing LUNGS: CTAB HEART: RRR ABD: S/ND, periumbilical tenderness - mild, fullness NEURO/PSYCH: A & O 3 A/P: Anemia -Hgb stable, no further bleeding -EGD 09/18 w/ non-erosive gastritis, reports normal colonoscopy @[facility] last year -- Stable GI-andrew. Okay to restart Coumadin. JORGE YANG Sep 20, 2016 11:43 VERÓNICA JAMESON MD Sep 20, 2016 11:47
[2016-09-20 12:00] VITALS: BP 138/79
[2016-09-20] MEDS: PANTOPRAZOLE 40 MG TABLET. PO SCH (12:37)
[2016-09-20] MEDS: SERTRALINE 50 MG TABLET. PO SCH (12:37)
[2016-09-20] MEDS: GABAPENTIN 300 MG CAPSULE. PO SCH (12:37)
[2016-09-20] MEDS: ALLOPURINOL 100 MG TABLET. PO SCH (12:39)
[2016-09-20] MEDS: OXYCODONE ER 10 MG TAB.ER.12H. PO SCH ×2 (12:39→21:08)
[2016-09-20] MEDS: CARVEDILOL 12.5 MG TABLET PO SCH ×2 (12:39→17:27)
[2016-09-20] MEDS: LIDOCAINE (700MG/PATCH) PATCH. TP SCH (12:39)
--- NOTE | 2016-09-20 12:50 | PDOC ---
Renal-Progress Notes Subjective Notes Notes NONE History of Present Illness Hx of present illness BETTER Vitals Vitals Vital Signs Date Time Temp Pulse Resp B/P Pulse Ox O2 Delivery O2 Flow Rate FiO2 09/20/16 12:39 85 138/79 09/20/16 12:13 97 Room Air 09/20/16 12:00 98.0 20 98.0 09/19/16 20:00 2.0 Weight Weight [ ] I.O. Intake and Output Intake and Output 09/20/16 07:00 Intake Total 1100 ml Balance 1100 ml Intake Oral 1100 ml # Bowel Movements 2 Labs Labs Laboratory Tests Test 09/20/16 08:15 White Blood Count 8.1x10^3/uL (4.0-11.0) Red Blood Count 2.82x10^6/uL (3.50-5.40) Hemoglobin 7.8g/dL (12.0-15.5) Hematocrit 23.7% (36.0-47.0) Mean Corpuscular Volume 84fL (79-100) Mean Corpuscular Hemoglobin 28pg (25-35) Mean Corpuscular Hemoglobin Concent 33g/dL (31-37) Red Cell Distribution Width 16.6% (11.5-14.5) Platelet Count 271x10^3/uL (140-400) Neutrophils (%) (Auto) 67% (31-73) Lymphocytes (%) (Auto) 24% (24-48) Monocytes (%) (Auto) 7% (0-9) Eosinophils (%) (Auto) 2% (0-3) Basophils (%) (Auto) 0% (0-3) Neutrophils # (Auto) 5.4x10^3uL (1.8-7.7) Lymphocytes # (Auto) 1.9x10^3/uL (1.0-4.8) Monocytes # (Auto) 0.6x10^3/uL (0.0-1.1) Eosinophils # (Auto) 0.2x10^3/uL (0.0-0.7) Basophils # (Auto) 0.0x10^3/uL (0.0-0.2) Sodium Level 131mmol/L (136-145) Potassium Level 3.8mmol/L (3.5-5.1) Chloride Level 100mmol/L (98-107) Carbon Dioxide Level 29mmol/L (21-32) Anion Gap 2 (6-14) Blood Urea Nitrogen 15mg/dL (7-20) Creatinine 2.5mg/dL (0.6-1.0) Estimated GFR (Cockcroft-Gault) 23.8 Glucose Level 90mg/dL (70-99) Calcium Level 7.9mg/dL (8.5-10.1) Review of Systems Constitutional: yes: alert, oriented, weakness Ears/Nose/Throat: Yes: no symptom reported Gastrointestional: Yes: melena Genitourinary: Yes: no symptom reported Skin: Yes no symptom reported Physical Exam General Appearance: no apparent distress Skin: warm Respiratory: bilateral CTA Heart: S1S2 Abdomen: soft, bowel sounds present Extremities: pulses present Neurology: alert, oriented Assessment Assessment IMP ANEMIA GI BLEED ESRD GASTRITIS PLAN HD TODAY UF TO SERVANDO BUCIO MD Sep 20, 2016 12:50
[2016-09-20 15:00] VITALS: BP 139/77
[2016-09-20] MEDS ORDERED: WARFARIN 2 MG TABLET. PO ONE (17:14)
[2016-09-20] MEDS ORDERED: methylPREDNISolone ACETATE 80 MG/ML VIAL. IM ONE (17:30)
[2016-09-20] MEDS ORDERED: BUPIVACAINE MPF 0.25% 10 ML VIAL. IJ ONE (17:30)
[2016-09-20] MEDS ORDERED: methylPREDNISolone ACETATE 40 MG/ML VIAL. IM ONE (17:30)
[2016-09-20 19:00] VITALS: BP 130/71
[2016-09-20] MEDS: NORTRIPTYLINE 25 MG CAPSULE PO SCH (21:07)
[2016-09-20 22:38] VITALS: BP 149/68
[2016-09-21 02:55] VITALS: BP 141/78
[2016-09-21] MEDS: OXYCODONE/APAP 10/325 TABLET. PO PRN ×2 (04:57→15:14)
[2016-09-21 05:25] LABS: BASO % 0 % (0-3); EOS % 0 % (0-3); HEMATOCRIT 22.9 % (36.0-47.0); HEMOGLOBIN 7.5 g/dL (12.0-15.5); LYMPH # 1.4 x10^3/uL (1.0-4.8); LYMPH % 23 % (24-48); MEAN CORPUSCULAR HEMOGLOBIN 27 pg (25-35); MEAN CORPUSCULAR HGB CONC 33 g/dL (31-37); MEAN CORPUSCULAR VOLUME 83 fL (79-100); MONO % 3 % (0-9); NEUT % 74 % (31-73); PLATELET COUNT 242 x10^3/uL (140-400); RED BLOOD COUNT 2.75 x10^6/uL (3.50-5.40); RED CELL DISTRIBUTION WIDTH 16.4 % (11.5-14.5)
[2016-09-21 05:45] LABS: CALCIUM 8.3 mg/dL (8.5-10.1); CREATININE 2.4 mg/dL (0.6-1.0); GFR 24.9; POTASSIUM 4.7 mmol/L (3.5-5.1)
[2016-09-21] MEDS: ONDANSETRON ODT 4 MG TAB.RAPDIS PO SCH ×3 (05:53→21:49)
[2016-09-21 07:00] VITALS: BP 148/75
--- NOTE | 2016-09-21 07:24 | CONS ---
DATE OF CONSULTATION: 09/20/2016 ATTENDING PHYSICIAN: Dr. Layton. The patient was seen at the request of Dr. Madera for rehab evaluation about her back pain. HISTORY OF PRESENT ILLNESS: This is a 61-year-old female admitted on 09/11/2016 as per transfer from [facility] [place], [place], with acute melena. The patient with 5 or 6 falls since April and she has been at [facility] care unit. The patient was noted with multiple falls and weakness and was seen in the Emergency Room for tardy stools. Her hemoglobin is 5.4 at the time of admission, she denied any discomfort. She missed hemodialysis on the day of admission. She apparently had multiple small ulcers on her buttock. In the Emergency Room, she was noted with dark stools. Her INR is being 6. The patient is on Coumadin for atrial fibrillation. The patient also with known hypertension, diabetes mellitus, previous deep venous thrombosis, atrial fibrillation, chronic kidney disease on hemodialysis, congestive heart failure, asthmatic bronchitis, gastroesophageal reflux disease, hepatitis A, B, C, chronic lower back pain, status post previous lumbar spine surgeries. She is known allergic to ERYTHROMYCIN BASE and MORPHINE and patient prior to the present hospitalization has lived with her family and she used to go to the hemodialysis. She has 3 steps to manage. The patient also admits pain in her right shoulder and left knee with associated swelling of left knee. The patient since admission is being treated with tentative diagnosis of acute blood loss anemia, upper GI bleeding. The patient had done. CAROLANN PRUETT MD DR: WAQAR/leah JOB#: [id number] / [id number]
--- NOTE | 2016-09-21 07:34 | CONS ---
DATE OF CONSULTATION: 09/20/2016 I saw her at the request of Dr. Madera for rehab evaluation. LOCATION: She is in room 556. HISTORY OF PRESENT ILLNESS: This is a 61-year-old female patient with chronic lower back pain, end-stage renal disease, on hemodialysis; diabetes mellitus, hypertension, previous deep venous thrombosis, atrial fibrillation on Coumadin, chronic kidney disease, congestive heart failure, hypertension, end-stage renal disease, on hemodialysis, asthmatic bronchitis, gastroesophageal reflux disease, hepatitis A, B, C positive, status post previous lumbar spine surgery, known allergic to ERYTHROMYCIN BASE AND MORPHINE and she had frequent falls since April and she has been staying in a nursing home care unit for a while and she was admitted on 09/11/2016 with acute blood loss anemia and she had EGD done on 09/18/2016 which revealed nonerosive gastritis. The patient had x-rays of her lumbar spine done on 09/19/2016 which revealed loss of height of several lumbar vertebral bodies represent compression fractures of undetermined age. Note is made that L3 compression fracture was previously seen, also spondylitic changes and multilevel degenerative disc disease involving lumbar spine and minimal grade 1 retrolisthesis of L3 on L4 and L2 on L3, also had hernia repair, mesh is seen in the lower and mid and left abdomen. The patient is status post cholecystectomy. The patient also admits pain in her right shoulder and left knee. The patient used to go to hemodialysis on a regular basis until her hospitalization. PHYSICAL EXAMINATION: Today revealed a middle-aged female. She is alert, oriented to time, place, person and circumstance and follows commands appropriately, moves all 4 extremities voluntarily where she had 4+/5 grade muscle strength with relatively increased weakness in hand intrinsic muscles and also significant weakness of right rotator cuff muscles and relative weakness of left rotator cuff muscles. She had crepitus on range of motion of both shoulders and knees and she had knee joint effusion, left side more than right side and also right shoulder joint effusion. She had tenderness to palpation at right shoulder and both knees over medial joint line and tenderness to palpation over lower thoracic and lumbar paraspinal muscles extending over to sacroiliac joint area and right groin. She had pain free range of motion on both hip joints. Deep tendon reflexes are 2+ and symmetrical and she had equal perception of touch and pinprick sensation bilaterally. Straight leg raising test is negative bilaterally. She requires some help with rolling from side to side, especially on to the left side. I have not tested her transfers or ambulation skills at this time. As per physical therapy note, she requires significant assistance with transfers. ASSESSMENT: 1. Mobility and self-care limitation in a patient with chronic lower back pain from degenerative disc disease and degenerative joint disease of lumbar vertebrae and multiple lumbar vertebral body compression fractures. No clinical evidence of ongoing lumbar radiculopathy. 2. Painful degenerative joint disease of right shoulder with associated rotator cuff complete tear and degenerative joint disease of both knees with pain in left knee, obesity, anemia from recent erosive gastritis. The patient with end-stage renal disease, on hemodialysis, chronic atrial fibrillation, diabetes mellitus, previous deep venous thrombosis, chronic kidney disease, hypertension, congestive heart failure, asthmatic bronchitis, gastroesophageal reflux disease. RECOMMENDATIONS: At her request, I have injected her right shoulder and left knee under aseptic skin technique after skin preparation with alcohol swab with Marcaine and Depo-Medrol solution and she tolerated the procedure satisfactorily without any side effects. To obtain MRI scan of her lumbar vertebrae to determine the acuteness of lumbar vertebral body compression fractures to get her lumbar support and left knee brace for use while up. Dr. Madera, I appreciate asking me to participate in care of this interesting patient. I will be glad to follow her with you as needed for her rehabilitation. CAROLANN PRUETT MD DR: WAQAR/leah JOB#: [id number] / [id number]
[2016-09-21] MEDS: SERTRALINE 50 MG TABLET. PO SCH (08:06)
[2016-09-21] MEDS: GABAPENTIN 300 MG CAPSULE. PO SCH (08:06)
[2016-09-21] MEDS: CARVEDILOL 12.5 MG TABLET PO SCH ×2 (08:06→17:14)
[2016-09-21] MEDS: OXYCODONE ER 10 MG TAB.ER.12H. PO SCH ×2 (08:07→21:48)
[2016-09-21] MEDS: PANTOPRAZOLE 40 MG TABLET. PO SCH (08:07)
[2016-09-21] MEDS: ALLOPURINOL 100 MG TABLET. PO SCH (08:07)
[2016-09-21] MEDS: LIDOCAINE (700MG/PATCH) PATCH. TP SCH (08:08)
[2016-09-21] MEDS: IPRATRPIUM/ALBUTEROL 0.5/2.5MG 3 ML NEBU. NEB SCH ×4 (08:19→19:55)
[2016-09-21] MEDS: BUDESONIDE 0.5 MG/2 ML NEBU NEB SCH ×2 (08:20→19:55)
--- NOTE | 2016-09-21 09:37 | PDOC ---
PROGRESS NOTES Subjective Subjective She admits less pain in he right shoulder and left knee. Objective Objective Vital Signs Date Time Temp Pulse Resp B/P Pulse Ox O2 Delivery O2 Flow Rate FiO2 09/21/16 08:21 100 Room Air 09/21/16 08:06 76 148/75 09/21/16 07:00 97.5 18 97.5 09/20/16 20:00 2.0 Intake and Output 09/21/16 07:00 Intake Total 430 ml Balance 430 ml Intake Oral 430 ml # Voids 2 # Bowel Movements 1 Physical Exam Physical Exam She is alert and supine in bed and seems to be in no acute distress and she continues with weakness of rotator cuff muscles,especially on right and she had tenderness to palpation over lumbar paraspinal muscles,sacroiliac joints and painfully limited lumbar spine ROM. Assessment Assessment Problems Medical Problems: (1) Anemia Status: Acute (2) Coagulopathy Status: Acute (3) Coumadin toxicity Status: Acute (4) Elevated INR (international normalized ratio) due to prior anticoagulant medication ingestion Status: Acute (5) ESRD on dialysis Status: Acute (6) GI bleed Status: Acute Plan Plan of Care Waiting for mri scan of lumbar spine to determine the age of vertebral body compression fractures. To get her up as tolerated with lumbar corset and left knee brace. Comment Review of Relevant I have reviewed the following items christi (where applicable) has been applied. Labs Laboratory Tests Test 09/20/16 08:15 09/21/16 04:45 White Blood Count 8.1x10^3/uL (4.0-11.0) 6.0x10^3/uL (4.0-11.0) Red Blood Count 2.82x10^6/uL (3.50-5.40) 2.75x10^6/uL (3.50-5.40) Hemoglobin 7.8g/dL (12.0-15.5) 7.5g/dL (12.0-15.5) Hematocrit 23.7% (36.0-47.0) 22.9% (36.0-47.0) Mean Corpuscular Volume 84fL (79-100) 83fL (79-100) Mean Corpuscular Hemoglobin 28pg (25-35) 27pg (25-35) Mean Corpuscular Hemoglobin Concent 33g/dL (31-37) 33g/dL (31-37) Red Cell Distribution Width 16.6% (11.5-14.5) 16.4% (11.5-14.5) Platelet Count 271x10^3/uL (140-400) 242x10^3/uL (140-400) Neutrophils (%) (Auto) 67% (31-73) 74% (31-73) Lymphocytes (%) (Auto) 24% (24-48) 23% (24-48) Monocytes (%) (Auto) 7% (0-9) 3% (0-9) Eosinophils (%) (Auto) 2% (0-3) 0% (0-3) Basophils (%) (Auto) 0% (0-3) 0% (0-3) Neutrophils # (Auto) 5.4x10^3uL (1.8-7.7) 4.4x10^3uL (1.8-7.7) Lymphocytes # (Auto) 1.9x10^3/uL (1.0-4.8) 1.4x10^3/uL (1.0-4.8) Monocytes # (Auto) 0.6x10^3/uL (0.0-1.1) 0.2x10^3/uL (0.0-1.1) Eosinophils # (Auto) 0.2x10^3/uL (0.0-0.7) 0.0x10^3/uL (0.0-0.7) Basophils # (Auto) 0.0x10^3/uL (0.0-0.2) 0.0x10^3/uL (0.0-0.2) Sodium Level 131mmol/L (136-145) 135mmol/L (136-145) Potassium Level 3.8mmol/L (3.5-5.1) 4.7mmol/L (3.5-5.1) Chloride Level 100mmol/L (98-107) 103mmol/L (98-107) Carbon Dioxide Level 29mmol/L (21-32) 25mmol/L (21-32) Anion Gap 2 (6-14) 7 (6-14) Blood Urea Nitrogen 15mg/dL (7-20) 13mg/dL (7-20) Creatinine 2.5mg/dL (0.6-1.0) 2.4mg/dL (0.6-1.0) Estimated GFR (Cockcroft-Gault) 23.8 24.9 Glucose Level 90mg/dL (70-99) 162mg/dL (70-99) Calcium Level 7.9mg/dL (8.5-10.1) 8.3mg/dL (8.5-10.1) Laboratory Tests Test 09/21/16 04:45 White Blood Count 6.0x10^3/uL (4.0-11.0) Red Blood Count 2.75x10^6/uL (3.50-5.40) Hemoglobin 7.5g/dL (12.0-15.5) Hematocrit 22.9% (36.0-47.0) Mean Corpuscular Volume 83fL (79-100) Mean Corpuscular Hemoglobin 27pg (25-35) Mean Corpuscular Hemoglobin Concent 33g/dL (31-37) Red Cell Distribution Width 16.4% (11.5-14.5) Platelet Count 242x10^3/uL (140-400) Neutrophils (%) (Auto) 74% (31-73) Lymphocytes (%) (Auto) 23% (24-48) Monocytes (%) (Auto) 3% (0-9) Eosinophils (%) (Auto) 0% (0-3) Basophils (%) (Auto) 0% (0-3) Neutrophils # (Auto) 4.4x10^3uL (1.8-7.7) Lymphocytes # (Auto) 1.4x10^3/uL (1.0-4.8) Monocytes # (Auto) 0.2x10^3/uL (0.0-1.1) Eosinophils # (Auto) 0.0x10^3/uL (0.0-0.7) Basophils # (Auto) 0.0x10^3/uL (0.0-0.2) Sodium Level 135mmol/L (136-145) Potassium Level 4.7mmol/L (3.5-5.1) Chloride Level 103mmol/L (98-107) Carbon Dioxide Level 25mmol/L (21-32) Anion Gap 7 (6-14) Blood Urea Nitrogen 13mg/dL (7-20) Creatinine 2.4mg/dL (0.6-1.0) Estimated GFR (Cockcroft-Gault) 24.9 Glucose Level 162mg/dL (70-99) Calcium Level 8.3mg/dL (8.5-10.1) Medications Current Medications Oxycodone/ Acetaminophen (Percocet 5/325) 1 tab 1X ONCE PO ; Start 09/09/16 at 19:00; Stop 09/09/16 at 19:01; Status DC Hydromorphone HCl 1 mg 1 mg 1X ONCE IV Last administered on 09/09/16 19:21; Start 09/09/16 at 19:15; Stop 09/09/16 at 19:16; Status DC Pantoprazole Sodium/Sodium Chloride (Protonix Iv/Iv Sodium Chloride 0.9% 100ml) 100 ml @ 10 mls/hr 1X ONCE IV Last administered on 09/09/16 19:51; Start at 19:30; Stop 09/10/16 at 05:29; Status DC Ondansetron HCl 4 mg 4 mg PRN Q8HRS PRN IV NAUSEA/VOMITING Last administered on 09/09/16 19:51; Start 09/09/16 at 19:30; Stop 09/10/16 at 19:29; Status DC Sodium Chloride (Iv Sodium Chloride 0.9% 1000ml Bag) 1,000 ml @ 100 mls/hr Q10H IV Last administered on 09/09/16 19:51; Start 09/09/16 at 19:30; Stop at 06:00; Status DC Acetaminophen (Tylenol) 650 mg PRN Q4HRS PRN PO FEVER Last administered on 09/09 19:52; Start 09/09/16 at 19:30; Stop 09/10/16 at 19:29; Status DC Multi-Ingredient Mouthwash/Gargle 15 ml 15 ml 1X ONCE SWSW Last administered on 09/09/16 23:41; Start 09/09/16 at 23:30; Stop 09/09/16 at 23:31; Status DC Phytonadione/ Sodium Chloride (Vitamin K/Iv Sodium Chloride 0.9% 50ml) 51 ml @ 102 mls/hr 1X ONCE IV Last administered on 09/10/16 02:07; Start 09/10/16 at 00:00; Stop 09/10/16 at 00:29; Status DC Acetaminophen (Tylenol) 325 mg PRN Q4HRS PO ; Start 09/09/16 at 23:30; Stop at 23:30; Status DC Allopurinol (Zyloprim) 100 mg DAILY PO Last administered on 09/21/16 08:07; Start 09/10/16 at 09:00 Bisacodyl (Dulcolax Supp) 10 mg PRN DAILY PRN RC CONSTIPATION; Start 09/09/16 at 23:30 Cyclobenzaprine HCl (Flexeril) 10 mg PRN TID PRN PO back pain Last administered on 09/19/16 20:46; Start 09/09/16 at 23:30 Gabapentin (Neurontin) 300 mg DAILY PO Last administered on 09/21/16 08:06; Start 09/10/16 at 09:00 Ipratropium Pitcher (Atrovent) 0.2 mg QID NEB ; Start 09/10/16 at 09:00; Status UNV Lidocaine (Lidoderm) 1 patch DAILY TP Last administered on 09/21/16 08:08; Start 09/10/16 at 09:00 Nortriptyline HCl (Pamelor) 25 mg QHS PO Last administered on 09/20/16 21:07; Start 09/10/16 at 21:00 Oxycodone HCl (Oxycontin) 10 mg BID PO Last administered on 09/21/16 08:07; Start 09/10/16 at 09:00 Oxycodone/ Acetaminophen (Percocet 10/325) 1 tab PRN Q4HRS PRN PO SEVERE PAIN Last administered on 09/21/16 04:57; Start 09/09/16 at 23:30 Non-Formulary Medication 2 puff Q4HRS INH FOR ASTHMA; Start 09/10/16 at 00:00; Status UNV Carvedilol (Coreg) 25 mg BIDWMEALS PO Last administered on 09/21/16 08:06; Start 09/10/16 at 08:00 Non-Formulary Medication 1 puff BID IH ; Start 09/10/16 at 09:00; Status UNV Ondansetron HCl (Zofran Odt) 8 mg Q8HRS PO Last administered on 09/21/16 05:53 ; Start 09/10/16 at 06:00 Sertraline HCl (Zoloft) 100 mg DAILY PO Last administered on 09/21/16 08:06; Start 09/10/16 at 09:00 Labetalol HCl (Normodyne) 20 mg PRN Q2HR PRN IVP HYPERTENSION, SEE COMMENTS Last administered on 09/13/16 00:17; Start 09/09/16 at 23:30 Albuterol/ Ipratropium (Duoneb) 3 ml RTQID NEB Last administered on 09/21/16 08 :19; Start 09/10/16 at 08:00 Budesonide (Pulmicort) 0.5 mg RTBID NEB Last administered on 09/21/16 08:20; Start 09/10/16 at 08:00 Albuterol Sulfate 2.5 mg 2.5 mg PRN Q4HRS PRN NEB SHORTNESS OF BREATH; Start at 23:30 Pantoprazole Sodium 80 mg/ Sodium Chloride 100 ml @ 10 mls/hr Q10H IV Last administered on 09/13/16 07:51; Start 09/10/16 at 10:00; Stop 09/13/16 at 09:59 ; Status DC Magnesium Sulfate/ Dextrose 50 ml @ 25 mls/hr PRN DAILY PRN IV for Mag < 1.7 on am labs; Start 09/10/16 at 10:00 Sodium Chloride (Iv Sodium Chloride 0.9% 1000ml Bag) 1,000 ml @ 1,000 mls/hr Q1H PRN IV hypotension; Start 09/11/16 at 08:50; Stop 09/11/16 at 14:49; Status DC Diphenhydramine HCl (Benadryl) 25 mg 1X PRN PRN IV ITCHING; Start 09/11/16 at 09:00; Stop 09/12/16 at 08:59; Status DC Diphenhydramine HCl (Benadryl) 25 mg 1X PRN PRN IV ITCHING; Start 09/11/16 at 09:00; Stop 09/12/16 at 08:59; Status DC Sodium Chloride (Normal Saline Flush) 10 ml 1X PRN PRN IV AP catheter pack; Start 09/11/16 at 09:00; Stop 09/12/16 at 08:59; Status DC Sodium Chloride (Normal Saline Flush) 10 ml 1X PRN PRN IV POST OFFICE CLERK catheter pack; Start 09/11/16 at 09:00; Stop 09/12/16 at 08:59; Status DC Labetalol HCl 10 mg 10 mg PRN Q1HR PRN IVP SBP > 180; Start 09/11/16 at 09:00; Stop 09/12/16 at 08:59; Status DC Sodium Chloride (Iv Sodium Chloride 0.9% 1000ml Bag) 1,000 ml @ 400 mls/hr Q2H30M PRN IV PATENCY; Start 09/11/16 at 08:50; Stop 09/11/16 at 20:49; Status DC Info (PHARMACY MONITORING -- do not chart) 1 each PRN DAILY PRN MC SEE COMMENTS ; Start 09/11/16 at 09:00 Info (PHARMACY MONITORING -- do not chart) 1 each PRN DAILY PRN MC SEE COMMENTS ; Start 09/11/16 at 09:00; Status UNV Sodium Cl/Sod Bicarb/Potass Cl/ PEG (Golytely) 4,000 ml 1X ONCE PO Last administered on 09/11/16t 17:13; Start 09/11/16 at 13:00; Stop 09/11/16 at 13:01 ; Status DC Fentanyl Citrate (Fentanyl 2ml Vial) 25 mcg PRN Q5MIN PRN IV MILD PAIN; Start 09/12/16 at 07:00; Stop 09/13/16 at 06:59; Status DC Fentanyl Citrate 50 mcg 50 mcg PRN Q5MIN PRN IV MODERATE PAIN; Start 09/12/16 at 07:00; Stop 09/13/16 at 06:59; Status DC Lactated Ringer's (Iv Lactated Ringers) 1,000 ml @ 0 mls/hr Q0M IV ; Start at 07:00; Stop 09/12/16 at 18:59; Status DC Lidocaine HCl 2 ml 1X PRN PRN ID IV START; Start 09/12/16 at 07:00; Stop at 06:59; Status DC Prochlorperazine Edisylate (Compazine) 5 mg PACU PRN PRN IV NAUSEA; Start 09/12 at 07:00; Stop 09/13/16 at 06:59; Status DC Pantoprazole Sodium 40 mg 40 mg DAILYAC IVP ; Start 09/13/16 at 07:30; Status UNV Magnesium Sulfate/ Dextrose 50 ml @ 25 mls/hr 1X ONCE IV ; Start 09/12/16 at 11 :30; Stop 09/12/16 at 13:29; Status DC Propofol 0 ml @ As Directed STK-MED ONCE IV ; Start 09/12/16 at 12:55; Stop at 12:56; Status DC Propofol (Diprivan) 20 ml @ As Directed STK-MED ONCE IV ; Start 09/12/16 at 12: 55; Stop 09/12/16 at 12:56; Status Cancel Lidocaine HCl (Lidocaine Pf 2% Vial) 5 ml STK-MED ONCE .ROUTE ; Start 09/12/16 at 12:55; Stop 09/12/16 at 12:56; Status DC Lorazepam (Ativan) 2 mg PRN Q4HRS PRN IV ANXIETY / AGITATION; Start 09/12/16 at 14:15 Lorazepam (Ativan) 2 mg Q4HRS PRN IV ANXIETY / AGITATION; Start 09/12/16 at 14: 15; Status UNV Haloperidol Lactate (Haldol) 2.5 mg PRN Q6HRS PRN IM AGITATION; Start 09/12/16 at 14:15 Haloperidol Lactate (Haldol) 2.5 mg PRN Q6HRS PRN IVP AGITATION; Start at 14:15 Lorazepam 2 mg 2 mg PRN Q4HRS PRN IM ANXIETY / AGITATION; Start 09/12/16 at 14: 30; Stop 09/17/16 at 14:37; Status DC Sodium Chloride (Iv Sodium Chloride 0.9% 1000ml Bag) 1,000 ml @ 1,000 mls/hr Q1H PRN IV hypotension; Start 09/13/16 at 08:39; Stop 09/13/16 at 14:38; Status DC Diphenhydramine HCl (Benadryl) 25 mg 1X PRN PRN IV ITCHING; Start 09/13/16 at 08:45; Stop 09/14/16 at 08:44; Status DC Diphenhydramine HCl (Benadryl) 25 mg 1X PRN PRN IV ITCHING; Start 09/13/16 at 08:45; Stop 09/14/16 at 08:44; Status DC Sodium Chloride (Normal Saline Flush) 10 ml 1X PRN PRN IV AP catheter pack; Start 09/13/16 at 08:45; Stop 09/14/16 at 08:44; Status DC Sodium Chloride (Normal Saline Flush) 10 ml 1X PRN PRN IV POST OFFICE CLERK catheter pack; Start 09/13/16 at 08:45; Stop 09/14/16 at 08:44; Status DC Labetalol HCl (Normodyne) 10 mg PRN Q1HR PRN IVP SBP > 180; Start 09/13/16 at 08:45; Stop 09/14/16 at 08:44; Status DC Info (PHARMACY MONITORING -- do not chart) 1 each PRN DAILY PRN MC SEE COMMENTS ; Start 09/13/16 at 08:45; Status UNV Info (PHARMACY MONITORING -- do not chart) 1 each PRN DAILY PRN MC SEE COMMENTS ; Start 09/13/16 at 08:45; Status UNV Pantoprazole Sodium 40 mg 40 mg DAILYAC IVP Last administered on 09/16/16t 05: 57; Start 09/13/16 at 13:00; Stop 09/17/16 at 10:02; Status DC Sodium Chloride (Iv Sodium Chloride 0.9% 1000ml Bag) 1,000 ml @ 1,000 mls/hr Q1H PRN IV hypotension; Start 09/16/16 at 08:46; Stop 09/16/16 at 14:45; Status DC Diphenhydramine HCl (Benadryl) 25 mg 1X PRN PRN IV ITCHING; Start 09/16/16 at 09:00; Stop 09/17/16 at 08:59; Status DC Diphenhydramine HCl (Benadryl) 25 mg 1X PRN PRN IV ITCHING; Start 09/16/16 at 09:00; Stop 09/17/16 at 08:59; Status DC Sodium Chloride (Normal Saline Flush) 10 ml 1X PRN PRN IV AP catheter pack; Start 09/16/16 at 09:00; Stop 09/17/16 at 08:59; Status DC Sodium Chloride (Normal Saline Flush) 10 ml 1X PRN PRN IV POST OFFICE CLERK catheter pack; Start 09/16/16 at 09:00; Stop 09/17/16 at 08:59; Status DC Info (PHARMACY MONITORING -- do not chart) 1 each PRN DAILY PRN MC SEE COMMENTS ; Start 09/16/16 at 09:00; Status UNV Info (PHARMACY MONITORING -- do not chart) 1 each PRN DAILY PRN MC SEE COMMENTS ; Start 09/16/16 at 09:00; Status UNV Darbepoetin Ernst (Aranesp) 60 mcg [id number] SQ Last administered on 09/16/16 22 :28; Start 09/16/16 at 21:00 Pantoprazole Sodium (Protonix) 40 mg DAILYAC PO Last administered on 09/21/16 08:07; Start 09/17/16 at 10:02 Fentanyl Citrate (Fentanyl 2ml Vial) 25 mcg PRN Q5MIN PRN IV MILD PAIN; Start 09/18/16 at 07:00; Stop 09/19/16 at 06:59; Status DC Fentanyl Citrate 50 mcg 50 mcg PRN Q5MIN PRN IV MODERATE PAIN; Start 09/18/16 at 07:00; Stop 09/19/16 at 06:59; Status DC Lactated Ringer's (Iv Lactated Ringers) 1,000 ml @ 0 mls/hr Q0M IV ; Start 09/18 at 07:00; Stop 09/18/16 at 18:59; Status DC Lidocaine HCl 2 ml 1X PRN PRN ID IV START; Start 09/18/16 at 07:00; Stop at 06:59; Status DC Prochlorperazine Edisylate (Compazine) 5 mg PACU PRN PRN IV NAUSEA; Start at 07:00; Stop 09/19/16 at 06:59; Status DC Dextrose 25 gm 25 gm STK-MED ONCE IV Last administered on 09/18/16 08:19; Start 09/18/16 at 08:19; Stop 09/18/16 at 08:20; Status DC Propofol (Diprivan) 20 ml @ As Directed STK-MED ONCE IV ; Start 09/18/16 at 11:13 ; Stop 09/18/16 at 11:14; Status DC Lidocaine HCl 5 ml 5 ml STK-MED ONCE .ROUTE ; Start 09/18/16 at 11:13; Stop at 11:14; Status DC Sodium Chloride 1,000 ml @ 100 mls/hr 1X ONCE IV Last administered on t 11:29; Start 09/18/16 at 11:30; Stop 09/18/16 at 21:29; Status DC Sodium Chloride (Iv Sodium Chloride 0.9% 1000ml Bag) 1,000 ml @ 1,000 mls/hr Q1H PRN IV hypotension; Start 09/18/16 at 13:47; Stop 09/18/16 at 19:46; Status DC Acetaminophen (Tylenol) 500 mg 1X PRN PRN PO MILD PAIN / TEMP; Start 09/18/16 at 14:00; Stop 09/19/16 at 13:59; Status DC Diphenhydramine HCl (Benadryl) 25 mg 1X PRN PRN IV ITCHING; Start 09/18/16 at 14 :00; Stop 09/19/16 at 13:59; Status DC Diphenhydramine HCl (Benadryl) 25 mg 1X PRN PRN IV ITCHING; Start 09/18/16 at 14 :00; Stop 09/19/16 at 13:59; Status DC Labetalol HCl 10 mg 10 mg PRN Q1HR PRN IVP SBP > 180; Start 09/18/16 at 14:00; Stop 09/19/16 at 13:59; Status DC Sodium Chloride (Iv Sodium Chloride 0.9% 1000ml Bag) 1,000 ml @ 400 mls/hr Q2H30M PRN IV PATENCY; Start 09/18/16 at 13:47; Stop 09/19/16 at 01:46; Status DC Info 1 each 1 each PRN DAILY PRN MC SEE COMMENTS; Start 09/18/16 at 14:00; Status UNV Sodium Chloride 1,000 ml @ 1,000 mls/hr Q1H PRN IV hypotension; Start 09/20/16 at 07:30; Stop 09/20/16 at 18:00; Status DC Albumin Human (Albuminar) 200 ml @ 200 mls/hr 1X PRN PRN IV Hypotension; Start 09/20/16 at 07:45; Stop 09/20/16 at 14:00; Status DC Acetaminophen (Tylenol) 500 mg 1X PRN PRN PO MILD PAIN / TEMP; Start 09/20/16 at 07:45; Stop 09/20/16 at 18:00; Status DC Diphenhydramine HCl (Benadryl) 25 mg 1X PRN PRN IV ITCHING; Start 09/20/16 at 07 :45; Stop 09/20/16 at 18:00; Status DC Diphenhydramine HCl (Benadryl) 25 mg 1X PRN PRN IV ITCHING; Start 09/20/16 at 07 :45; Stop 09/20/16 at 18:00; Status DC Sodium Chloride (Normal Saline Flush) 10 ml 1X PRN PRN IV AP catheter pack; Start 09/20/16 at 07:45; Stop 09/20/16 at 18:00; Status DC Sodium Chloride (Normal Saline Flush) 10 ml 1X PRN PRN IV POST OFFICE CLERK catheter pack; Start 09/20/16 at 07:45; Stop 09/20/16 at 18:00; Status DC Labetalol HCl 10 mg 10 mg PRN Q1HR PRN IVP SBP > 180; Start 09/20/16 at 07:45; Stop 09/20/16 at 18:00; Status DC Sodium Chloride (Iv Sodium Chloride 0.9% 1000ml Bag) 1,000 ml @ 400 mls/hr Q2H30M PRN IV PATENCY; Start 09/20/16 at 07:45; Stop 09/20/16 at 18:00; Status DC Info (PHARMACY MONITORING -- do not chart) 1 each PRN DAILY PRN MC SEE COMMENTS ; Start 09/20/16 at 07:45; Status UNV Warfarin Sodium (Coumadin Per Pharmacy) 1 each PRN DAILY PRN MC SEE COMMENTS Last administered on 09/20/16 17:21; Start 09/20/16 at 14:30 Warfarin Sodium (Coumadin) 2 mg 1X WARF ONCE PO Last administered on 09/20/16 17:27; Start 09/20/16 at 17:14; Stop 09/20/16 at 17:15; Status DC Methylprednisolone Acetate (Depo-Medrol 80mg Vial) 80 mg 1X ONCE IM ; Start 09/20/16 at 17:30; Stop 09/20/16 at 17:33; Status DC Methylprednisolone Acetate (Depo-Medrol 40mg Vial) 40 mg 1X ONCE IM ; Start 09/20/16 at 17:30; Stop 09/20/16 at 17:33; Status DC Bupivacaine HCl (Sensorcaine-Mpf 0.25%) 10 ml 1X ONCE IJ ; Start 09/20/16 at 17: 30; Stop 09/20/16 at 17:33; Status DC Active Scripts Active Reported [Mylanta] Tylenol (Acetaminophen) 325 Mg Tablet 1 Tab PO PRN Q4HRS Fleet Enema (Na Phos,M-B/Na Phos,Di-Ba) 133 Ml Enema 1 Each RC ONCE Dulcolax (Bisacodyl) 10 Mg Supp.rect 10 Mg RC PRN DAILY PRN Zofran Odt (Ondansetron) 8 Mg Tab.rapdis 1 Tab PO Q8HRS Nitrostat (Nitroglycerin) 0.4 Mg Tab.subl 1 Tab SL UD Cyclobenzaprine Hcl 10 Mg Tablet 1 Tab PO TID Zepatier 50-100 mg Tablet (Elbasvir/Grazoprevir) 1 Each Tablet 1 Each PO [PhosLo] Coreg (Carvedilol) 25 Mg Tablet 1 Tab PO BID Aspirin 81 Mg Tab.chew 1 Tab PO DAILY Allopurinol 100 Mg Tablet 1 Tab PO DAILY Ventolin Hfa Inhaler (Albuterol Sulfate) 18 Gm Hfa.aer.ad 2 Puff INH Q4HRS Nephplex Rx Tablet (Vit B Cmplx No3/Fa/C/Biot/Zinc) 1 Each Tablet 1 Each PO Senokot (Sennosides) 8.6 Mg Tablet 1 Tab PO BID Oxycontin (Oxycodone HCl) 10 Mg Tab.er.12h 10 Mg PO BID Glycolax (Polyethylene Glycol 3350) 119 Gm Powder 17 Gm PO UD Percocet 10-325 Mg Tablet (Oxycodone/Acetaminophen) 1 Each Tablet 1 Tab PO Q4- 6HRS Vitamin D3 (Cholecalciferol (Vitamin D3)) 1,000 Unit Tablet 1 Tab PO DAILY Advair 250-50 Diskus (Fluticasone/Salmeterol) 1 Each Disk.w.dev 1 Puff IH BID Ipratropium Pitcher 0.2 Mg/1 Ml Solution 1 Vial NEB QID Lidoderm (Lidocaine) 700 Mg Adh..patch 1 Patch TP DAILY Nortriptyline Hcl 25 Mg Capsule 1 Cap PO QHS Ciprofloxacin Hcl 250 Mg Tablet 1 Tab PO BID Warfarin Sodium 2 Mg Tablet 1.5 Mg PO DAILY Gabapentin 300 Mg Capsule 300 Mg PO TID Zoloft (Sertraline Hcl) 100 Mg Tablet 1 Tab PO DAILY Vitals/I & O Vital Sign - Last 24 Hours 09/20/16 09/20/16 09/20/16 09/20/16 12:00 12:13 12:39 15:00 Temp 98.0 98.0 98.0 98.0 Pulse 85 85 86 Resp 20 20 B/P 138/79 138/79 139/77 Pulse Ox 98 97 96 O2 Delivery Room Air Room Air Room Air 09/20/16 09/20/16 09/20/16 09/20/16 15:06 17:27 19:00 19:29 Temp 97.3 97.3 Pulse 86 76 Resp 18 B/P 139/77 130/71 Pulse Ox 100 100 O2 Delivery Room Air Room Air Room Air 09/20/16 09/20/16 09/20/16 09/21/16 20:00 21:08 22:38 01:08 Temp 98.6 98.6 Pulse 73 Resp 20 18 20 B/P 149/68 Pulse Ox 96 96 96 O2 Delivery Room Air Room Air Room Air Room Air O2 Flow Rate 2.0 09/21/16 09/21/16 09/21/16 09/21/16 02:55 04:57 05:58 07:00 Temp 97.3 97.5 97.3 97.5 Pulse 76 76 Resp 18 20 20 18 B/P 141/78 148/75 Pulse Ox 96 96 96 96 O2 Delivery Room Air Room Air Room Air Room Air 09/21/16 09/21/16 09/21/16 08:06 08:07 08:21 Pulse 76 B/P 148/75 Pulse Ox 96 100 O2 Delivery Room Air Room Air Intake and Output 09/20/16 09/20/16 09/21/16 15:00 23:00 07:00 Intake Total 60 ml 120 ml 250 ml Balance 60 ml 120 ml 250 ml CAROLANN PRUETT MD Sep 21, 2016 09:37
[2016-09-21 10:47] VITALS: BP 130/71
[2016-09-21 11:38] LABS: INR 1.5 (0.8-1.1); PROTHROMBIN TIME PATIENT 17.1 SEC (11.7-14.0)
--- NOTE | 2016-09-21 12:09 | PDOC ---
PROGRESS NOTES Chief Complaint Chief Complaint 1. Acute blood loss anemia, GI bleed, s/p EGD 2. ESRD, on HD MWF 3. Coumadin coagulopathy, 4. Hypertension, comtrolled 5. Asthma, hx 6. Obesity 7. Back pain 8. A fib on coumadin Plan s/p EGD, colonoscopy Normal per pt, last year resume Coumadin monitor hemoglobin PT/OT HD SNU placement pending. - does not want to go back to [facility] - SW aware lumbar x -ray- compression fracture, old vs new, consult Dr Gurrola and Rolando. pain control GI follow up as out pt. History of Present Illness History of Present Illness Doing ok On the phone PLan updated to her - she agrees Hgb 7.5 Hemodynamically stable Warf resumed Needs a new SNU - wait till friday for SW Vitals Vitals Vital Signs Date Time Temp Pulse Resp B/P Pulse Ox O2 Delivery O2 Flow Rate FiO2 09/21/16 11:13 Room Air 09/21/16 10:47 97.9 75 18 130/71 92 97.9 09/20/16 20:00 2.0 Physical Exam General: Alert, Oriented X3, Cooperative, No acute distress Heart: Normal S1, Normal S2 Lungs: Clear Abdomen: Normal bowel sounds, Soft, No tenderness, No hepatosplenomegaly Extremities: No clubbing, No cyanosis, Other (back, no spinal tenderness. ) Skin: No rashes, No significant lesion, Other Labs LABS Laboratory Tests Test 09/21/16 04:45 09/21/16 11:00 White Blood Count 6.0x10^3/uL (4.0-11.0) Red Blood Count 2.75x10^6/uL (3.50-5.40) Hemoglobin 7.5g/dL (12.0-15.5) Hematocrit 22.9% (36.0-47.0) Mean Corpuscular Volume 83fL (79-100) Mean Corpuscular Hemoglobin 27pg (25-35) Mean Corpuscular Hemoglobin Concent 33g/dL (31-37) Red Cell Distribution Width 16.4% (11.5-14.5) Platelet Count 242x10^3/uL (140-400) Neutrophils (%) (Auto) 74% (31-73) Lymphocytes (%) (Auto) 23% (24-48) Monocytes (%) (Auto) 3% (0-9) Eosinophils (%) (Auto) 0% (0-3) Basophils (%) (Auto) 0% (0-3) Neutrophils # (Auto) 4.4x10^3uL (1.8-7.7) Lymphocytes # (Auto) 1.4x10^3/uL (1.0-4.8) Monocytes # (Auto) 0.2x10^3/uL (0.0-1.1) Eosinophils # (Auto) 0.0x10^3/uL (0.0-0.7) Basophils # (Auto) 0.0x10^3/uL (0.0-0.2) Sodium Level 135mmol/L (136-145) Potassium Level 4.7mmol/L (3.5-5.1) Chloride Level 103mmol/L (98-107) Carbon Dioxide Level 25mmol/L (21-32) Anion Gap 7 (6-14) Blood Urea Nitrogen 13mg/dL (7-20) Creatinine 2.4mg/dL (0.6-1.0) Estimated GFR (Cockcroft-Gault) 24.9 Glucose Level 162mg/dL (70-99) Calcium Level 8.3mg/dL (8.5-10.1) Prothrombin Time 17.1SEC (11.7-14.0) Prothromb Time International Ratio 1.5 (0.8-1.1) Review of Systems Review of Systems denies 14 pt Assessment and Plan Assessmemt and Plan Problems Medical Problems: (1) Anemia Status: Acute (2) Coagulopathy Status: Acute (3) Coumadin toxicity Status: Acute (4) Elevated INR (international normalized ratio) due to prior anticoagulant medication ingestion Status: Acute (5) ESRD on dialysis Status: Acute (6) GI bleed Status: Acute Problems: Comment Review of Relevant I have reviewed the following items christi (where applicable) has been applied. Labs Laboratory Tests Test 09/20/16 08:15 09/21/16 04:45 09/21/16 11:00 White Blood Count 8.1x10^3/uL (4.0-11.0) 6.0x10^3/uL (4.0-11.0) Red Blood Count 2.82x10^6/uL (3.50-5.40) 2.75x10^6/uL (3.50-5.40) Hemoglobin 7.8g/dL (12.0-15.5) 7.5g/dL (12.0-15.5) Hematocrit 23.7% (36.0-47.0) 22.9% (36.0-47.0) Mean Corpuscular Volume 84fL (79-100) 83fL (79-100) Mean Corpuscular Hemoglobin 28pg (25-35) 27pg (25-35) Mean Corpuscular Hemoglobin Concent 33g/dL (31-37) 33g/dL (31-37) Red Cell Distribution Width 16.6% (11.5-14.5) 16.4% (11.5-14.5) Platelet Count 271x10^3/uL (140-400) 242x10^3/uL (140-400) Neutrophils (%) (Auto) 67% (31-73) 74% (31-73) Lymphocytes (%) (Auto) 24% (24-48) 23% (24-48) Monocytes (%) (Auto) 7% (0-9) 3% (0-9) Eosinophils (%) (Auto) 2% (0-3) 0% (0-3) Basophils (%) (Auto) 0% (0-3) 0% (0-3) Neutrophils # (Auto) 5.4x10^3uL (1.8-7.7) 4.4x10^3uL (1.8-7.7) Lymphocytes # (Auto) 1.9x10^3/uL (1.0-4.8) 1.4x10^3/uL (1.0-4.8) Monocytes # (Auto) 0.6x10^3/uL (0.0-1.1) 0.2x10^3/uL (0.0-1.1) Eosinophils # (Auto) 0.2x10^3/uL (0.0-0.7) 0.0x10^3/uL (0.0-0.7) Basophils # (Auto) 0.0x10^3/uL (0.0-0.2) 0.0x10^3/uL (0.0-0.2) Sodium Level 131mmol/L (136-145) 135mmol/L (136-145) Potassium Level 3.8mmol/L (3.5-5.1) 4.7mmol/L (3.5-5.1) Chloride Level 100mmol/L (98-107) 103mmol/L (98-107) Carbon Dioxide Level 29mmol/L (21-32) 25mmol/L (21-32) Anion Gap 2 (6-14) 7 (6-14) Blood Urea Nitrogen 15mg/dL (7-20) 13mg/dL (7-20) Creatinine 2.5mg/dL (0.6-1.0) 2.4mg/dL (0.6-1.0) Estimated GFR (Cockcroft-Gault) 23.8 24.9 Glucose Level 90mg/dL (70-99) 162mg/dL (70-99) Calcium Level 7.9mg/dL (8.5-10.1) 8.3mg/dL (8.5-10.1) Prothrombin Time 17.1SEC (11.7-14.0) Prothromb Time International Ratio 1.5 (0.8-1.1) Laboratory Tests Test 09/21/16 04:45 09/21/16 11:00 White Blood Count 6.0x10^3/uL (4.0-11.0) Red Blood Count 2.75x10^6/uL (3.50-5.40) Hemoglobin 7.5g/dL (12.0-15.5) Hematocrit 22.9% (36.0-47.0) Mean Corpuscular Volume 83fL (79-100) Mean Corpuscular Hemoglobin 27pg (25-35) Mean Corpuscular Hemoglobin Concent 33g/dL (31-37) Red Cell Distribution Width 16.4% (11.5-14.5) Platelet Count 242x10^3/uL (140-400) Neutrophils (%) (Auto) 74% (31-73) Lymphocytes (%) (Auto) 23% (24-48) Monocytes (%) (Auto) 3% (0-9) Eosinophils (%) (Auto) 0% (0-3) Basophils (%) (Auto) 0% (0-3) Neutrophils # (Auto) 4.4x10^3uL (1.8-7.7) Lymphocytes # (Auto) 1.4x10^3/uL (1.0-4.8) Monocytes # (Auto) 0.2x10^3/uL (0.0-1.1) Eosinophils # (Auto) 0.0x10^3/uL (0.0-0.7) Basophils # (Auto) 0.0x10^3/uL (0.0-0.2) Sodium Level 135mmol/L (136-145) Potassium Level 4.7mmol/L (3.5-5.1) Chloride Level 103mmol/L (98-107) Carbon Dioxide Level 25mmol/L (21-32) Anion Gap 7 (6-14) Blood Urea Nitrogen 13mg/dL (7-20) Creatinine 2.4mg/dL (0.6-1.0) Estimated GFR (Cockcroft-Gault) 24.9 Glucose Level 162mg/dL (70-99) Calcium Level 8.3mg/dL (8.5-10.1) Prothrombin Time 17.1SEC (11.7-14.0) Prothromb Time International Ratio 1.5 (0.8-1.1) Medications Current Medications Oxycodone/ Acetaminophen (Percocet 5/325) 1 tab 1X ONCE PO ; Start 09/09/16 at 19:00; Stop 09/09/16 at 19:01; Status DC Hydromorphone HCl 1 mg 1 mg 1X ONCE IV Last administered on 09/09/16 19:21; Start 09/09/16 at 19:15; Stop 09/09/16 at 19:16; Status DC Pantoprazole Sodium/Sodium Chloride (Protonix Iv/Iv Sodium Chloride 0.9% 100ml) 100 ml @ 10 mls/hr 1X ONCE IV Last administered on 09/09/16 19:51; Start at 19:30; Stop 09/10/16 at 05:29; Status DC Ondansetron HCl 4 mg 4 mg PRN Q8HRS PRN IV NAUSEA/VOMITING Last administered on 09/09/16 19:51; Start 09/09/16 at 19:30; Stop 09/10/16 at 19:29; Status DC Sodium Chloride (Iv Sodium Chloride 0.9% 1000ml Bag) 1,000 ml @ 100 mls/hr Q10H IV Last administered on 09/09/16 19:51; Start 09/09/16 at 19:30; Stop at 06:00; Status DC Acetaminophen (Tylenol) 650 mg PRN Q4HRS PRN PO FEVER Last administered on 09/09 19:52; Start 09/09/16 at 19:30; Stop 09/10/16 at 19:29; Status DC Multi-Ingredient Mouthwash/Gargle 15 ml 15 ml 1X ONCE SWSW Last administered on 09/09/16 23:41; Start 09/09/16 at 23:30; Stop 09/09/16 at 23:31; Status DC Phytonadione/ Sodium Chloride (Vitamin K/Iv Sodium Chloride 0.9% 50ml) 51 ml @ 102 mls/hr 1X ONCE IV Last administered on 09/10/16 02:07; Start 09/10/16 at 00:00; Stop 09/10/16 at 00:29; Status DC Acetaminophen (Tylenol) 325 mg PRN Q4HRS PO ; Start 09/09/16 at 23:30; Stop at 23:30; Status DC Allopurinol (Zyloprim) 100 mg DAILY PO Last administered on 09/21/16 08:07; Start 09/10/16 at 09:00 Bisacodyl (Dulcolax Supp) 10 mg PRN DAILY PRN RC CONSTIPATION; Start 09/09/16 at 23:30 Cyclobenzaprine HCl (Flexeril) 10 mg PRN TID PRN PO back pain Last administered on 09/19/16 20:46; Start 09/09/16 at 23:30 Gabapentin (Neurontin) 300 mg DAILY PO Last administered on 09/21/16 08:06; Start 09/10/16 at 09:00 Ipratropium Douglas (Atrovent) 0.2 mg QID NEB ; Start 09/10/16 at 09:00; Status UNV Lidocaine (Lidoderm) 1 patch DAILY TP Last administered on 09/21/16 08:08; Start 09/10/16 at 09:00 Nortriptyline HCl (Pamelor) 25 mg QHS PO Last administered on 09/20/16 21:07; Start 09/10/16 at 21:00 Oxycodone HCl (Oxycontin) 10 mg BID PO Last administered on 09/21/16 08:07; Start 09/10/16 at 09:00 Oxycodone/ Acetaminophen (Percocet 10/325) 1 tab PRN Q4HRS PRN PO SEVERE PAIN Last administered on 09/21/16 04:57; Start 09/09/16 at 23:30 Non-Formulary Medication 2 puff Q4HRS INH FOR ASTHMA; Start 09/10/16 at 00:00; Status UNV Carvedilol (Coreg) 25 mg BIDWMEALS PO Last administered on 09/21/16 08:06; Start 09/10/16 at 08:00 Non-Formulary Medication 1 puff BID IH ; Start 09/10/16 at 09:00; Status UNV Ondansetron HCl (Zofran Odt) 8 mg Q8HRS PO Last administered on 09/21/16 05:53 ; Start 09/10/16 at 06:00 Sertraline HCl (Zoloft) 100 mg DAILY PO Last administered on 09/21/16 08:06; Start 09/10/16 at 09:00 Labetalol HCl (Normodyne) 20 mg PRN Q2HR PRN IVP HYPERTENSION, SEE COMMENTS Last administered on 09/13/16 00:17; Start 09/09/16 at 23:30 Albuterol/ Ipratropium (Duoneb) 3 ml RTQID NEB Last administered on 09/21/16 11 :13; Start 09/10/16 at 08:00 Budesonide (Pulmicort) 0.5 mg RTBID NEB Last administered on 09/21/16 08:20; Start 09/10/16 at 08:00 Albuterol Sulfate 2.5 mg 2.5 mg PRN Q4HRS PRN NEB SHORTNESS OF BREATH; Start at 23:30 Pantoprazole Sodium 80 mg/ Sodium Chloride 100 ml @ 10 mls/hr Q10H IV Last administered on 2/24/17at 07:51; Start 09/10/16 at 10:00; Stop 09/13/16 at 09:59 ; Status DC Magnesium Sulfate/ Dextrose 50 ml @ 25 mls/hr PRN DAILY PRN IV for Mag < 1.7 on am labs; Start 09/10/16 at 10:00 Sodium Chloride (Iv Sodium Chloride 0.9% 1000ml Bag) 1,000 ml @ 1,000 mls/hr Q1H PRN IV hypotension; Start 09/11/16 at 08:50; Stop 09/11/16 at 14:49; Status DC Diphenhydramine HCl (Benadryl) 25 mg 1X PRN PRN IV ITCHING; Start 09/11/16 at 09:00; Stop 09/12/16 at 08:59; Status DC Diphenhydramine HCl (Benadryl) 25 mg 1X PRN PRN IV ITCHING; Start 09/11/16 at 09:00; Stop 09/12/16 at 08:59; Status DC Sodium Chloride (Normal Saline Flush) 10 ml 1X PRN PRN IV AP catheter pack; Start 09/11/16 at 09:00; Stop 09/12/16 at 08:59; Status DC Sodium Chloride (Normal Saline Flush) 10 ml 1X PRN PRN IV [employer] catheter pack; Start 09/11/16 at 09:00; Stop 09/12/16 at 08:59; Status DC Labetalol HCl 10 mg 10 mg PRN Q1HR PRN IVP SBP > 180; Start 09/11/16 at 09:00; Stop 09/12/16 at 08:59; Status DC Sodium Chloride (Iv Sodium Chloride 0.9% 1000ml Bag) 1,000 ml @ 400 mls/hr Q2H30M PRN IV PATENCY; Start 09/11/16 at 08:50; Stop 09/11/16 at 20:49; Status DC Info (PHARMACY MONITORING -- do not chart) 1 each PRN DAILY PRN MC SEE COMMENTS ; Start 09/11/16 at 09:00 Info (PHARMACY MONITORING -- do not chart) 1 each PRN DAILY PRN MC SEE COMMENTS ; Start 09/11/16 at 09:00; Status UNV Sodium Cl/Sod Bicarb/Potass Cl/ PEG (Golytely) 4,000 ml 1X ONCE PO Last administered on 09/11/16t 17:13; Start 09/11/16 at 13:00; Stop 09/11/16 at 13:01 ; Status DC Fentanyl Citrate (Fentanyl 2ml Vial) 25 mcg PRN Q5MIN PRN IV MILD PAIN; Start 09/12/16 at 07:00; Stop 09/13/16 at 06:59; Status DC Fentanyl Citrate 50 mcg 50 mcg PRN Q5MIN PRN IV MODERATE PAIN; Start 09/12/16 at 07:00; Stop 09/13/16 at 06:59; Status DC Lactated Ringer's (Iv Lactated Ringers) 1,000 ml @ 0 mls/hr Q0M IV ; Start at 07:00; Stop 09/12/16 at 18:59; Status DC Lidocaine HCl 2 ml 1X PRN PRN ID IV START; Start 09/12/16 at 07:00; Stop at 06:59; Status DC Prochlorperazine Edisylate (Compazine) 5 mg PACU PRN PRN IV NAUSEA; Start 09/12 at 07:00; Stop 09/13/16 at 06:59; Status DC Pantoprazole Sodium 40 mg 40 mg DAILYAC IVP ; Start 09/13/16 at 07:30; Status UNV Magnesium Sulfate/ Dextrose 50 ml @ 25 mls/hr 1X ONCE IV ; Start 09/12/16 at 11 :30; Stop 09/12/16 at 13:29; Status DC Propofol 0 ml @ As Directed STK-MED ONCE IV ; Start 09/12/16 at 12:55; Stop at 12:56; Status DC Propofol (Diprivan) 20 ml @ As Directed STK-MED ONCE IV ; Start 09/12/16 at 12: 55; Stop 09/12/16 at 12:56; Status Cancel Lidocaine HCl (Lidocaine Pf 2% Vial) 5 ml STK-MED ONCE .ROUTE ; Start 09/12/16 at 12:55; Stop 09/12/16 at 12:56; Status DC Lorazepam (Ativan) 2 mg PRN Q4HRS PRN IV ANXIETY / AGITATION; Start 09/12/16 at 14:15 Lorazepam (Ativan) 2 mg Q4HRS PRN IV ANXIETY / AGITATION; Start 09/12/16 at 14: 15; Status UNV Haloperidol Lactate (Haldol) 2.5 mg PRN Q6HRS PRN IM AGITATION; Start 09/12/16 at 14:15 Haloperidol Lactate (Haldol) 2.5 mg PRN Q6HRS PRN IVP AGITATION; Start at 14:15 Lorazepam 2 mg 2 mg PRN Q4HRS PRN IM ANXIETY / AGITATION; Start 09/12/16 at 14: 30; Stop 09/17/16 at 14:37; Status DC Sodium Chloride (Iv Sodium Chloride 0.9% 1000ml Bag) 1,000 ml @ 1,000 mls/hr Q1H PRN IV hypotension; Start 09/13/16 at 08:39; Stop 09/13/16 at 14:38; Status DC Diphenhydramine HCl (Benadryl) 25 mg 1X PRN PRN IV ITCHING; Start 09/13/16 at 08:45; Stop 09/14/16 at 08:44; Status DC Diphenhydramine HCl (Benadryl) 25 mg 1X PRN PRN IV ITCHING; Start 09/13/16 at 08:45; Stop 09/14/16 at 08:44; Status DC Sodium Chloride (Normal Saline Flush) 10 ml 1X PRN PRN IV AP catheter pack; Start 09/13/16 at 08:45; Stop 09/14/16 at 08:44; Status DC Sodium Chloride (Normal Saline Flush) 10 ml 1X PRN PRN IV [employer] catheter pack; Start 09/13/16 at 08:45; Stop 09/14/16 at 08:44; Status DC Labetalol HCl (Normodyne) 10 mg PRN Q1HR PRN IVP SBP > 180; Start 09/13/16 at 08:45; Stop 09/14/16 at 08:44; Status DC Info (PHARMACY MONITORING -- do not chart) 1 each PRN DAILY PRN MC SEE COMMENTS ; Start 09/13/16 at 08:45; Status UNV Info (PHARMACY MONITORING -- do not chart) 1 each PRN DAILY PRN MC SEE COMMENTS ; Start 09/13/16 at 08:45; Status UNV Pantoprazole Sodium 40 mg 40 mg DAILYAC IVP Last administered on 09/16/16t 05: 57; Start 09/13/16 at 13:00; Stop 09/17/16 at 10:02; Status DC Sodium Chloride (Iv Sodium Chloride 0.9% 1000ml Bag) 1,000 ml @ 1,000 mls/hr Q1H PRN IV hypotension; Start 09/16/16 at 08:46; Stop 09/16/16 at 14:45; Status DC Diphenhydramine HCl (Benadryl) 25 mg 1X PRN PRN IV ITCHING; Start 09/16/16 at 09:00; Stop 09/17/16 at 08:59; Status DC Diphenhydramine HCl (Benadryl) 25 mg 1X PRN PRN IV ITCHING; Start 09/16/16 at 09:00; Stop 09/17/16 at 08:59; Status DC Sodium Chloride (Normal Saline Flush) 10 ml 1X PRN PRN IV AP catheter pack; Start 09/16/16 at 09:00; Stop 09/17/16 at 08:59; Status DC Sodium Chloride (Normal Saline Flush) 10 ml 1X PRN PRN IV [employer] catheter pack; Start 09/16/16 at 09:00; Stop 09/17/16 at 08:59; Status DC Info (PHARMACY MONITORING -- do not chart) 1 each PRN DAILY PRN MC SEE COMMENTS ; Start 09/16/16 at 09:00; Status UNV Info (PHARMACY MONITORING -- do not chart) 1 each PRN DAILY PRN MC SEE COMMENTS ; Start 09/16/16 at 09:00; Status UNV Darbepoetin Ernst (Aranesp) 60 mcg WEEKLYHS SQ Last administered on 09/16/16 22 :28; Start 09/16/16 at 21:00 Pantoprazole Sodium (Protonix) 40 mg DAILYAC PO Last administered on 09/21/16 08:07; Start 09/17/16 at 10:02 Fentanyl Citrate (Fentanyl 2ml Vial) 25 mcg PRN Q5MIN PRN IV MILD PAIN; Start 09/18/16 at 07:00; Stop 09/19/16 at 06:59; Status DC Fentanyl Citrate 50 mcg 50 mcg PRN Q5MIN PRN IV MODERATE PAIN; Start 09/18/16 at 07:00; Stop 09/19/16 at 06:59; Status DC Lactated Ringer's (Iv Lactated Ringers) 1,000 ml @ 0 mls/hr Q0M IV ; Start 09/18 at 07:00; Stop 09/18/16 at 18:59; Status DC Lidocaine HCl 2 ml 1X PRN PRN ID IV START; Start 09/18/16 at 07:00; Stop at 06:59; Status DC Prochlorperazine Edisylate (Compazine) 5 mg PACU PRN PRN IV NAUSEA; Start at 07:00; Stop 09/19/16 at 06:59; Status DC Dextrose 25 gm 25 gm STK-MED ONCE IV Last administered on 09/18/16 08:19; Start 09/18/16 at 08:19; Stop 09/18/16 at 08:20; Status DC Propofol (Diprivan) 20 ml @ As Directed STK-MED ONCE IV ; Start 09/18/16 at 11:13 ; Stop 09/18/16 at 11:14; Status DC Lidocaine HCl 5 ml 5 ml STK-MED ONCE .ROUTE ; Start 09/18/16 at 11:13; Stop at 11:14; Status DC Sodium Chloride 1,000 ml @ 100 mls/hr 1X ONCE IV Last administered on 11:29; Start 09/18/16 at 11:30; Stop 09/18/16 at 21:29; Status DC Sodium Chloride (Iv Sodium Chloride 0.9% 1000ml Bag) 1,000 ml @ 1,000 mls/hr Q1H PRN IV hypotension; Start 09/18/16 at 13:47; Stop 09/18/16 at 19:46; Status DC Acetaminophen (Tylenol) 500 mg 1X PRN PRN PO MILD PAIN / TEMP; Start 09/18/16 at 14:00; Stop 09/19/16 at 13:59; Status DC Diphenhydramine HCl (Benadryl) 25 mg 1X PRN PRN IV ITCHING; Start 09/18/16 at 14 :00; Stop 09/19/16 at 13:59; Status DC Diphenhydramine HCl (Benadryl) 25 mg 1X PRN PRN IV ITCHING; Start 09/18/16 at 14 :00; Stop 09/19/16 at 13:59; Status DC Labetalol HCl 10 mg 10 mg PRN Q1HR PRN IVP SBP > 180; Start 09/18/16 at 14:00; Stop 09/19/16 at 13:59; Status DC Sodium Chloride (Iv Sodium Chloride 0.9% 1000ml Bag) 1,000 ml @ 400 mls/hr Q2H30M PRN IV PATENCY; Start 09/18/16 at 13:47; Stop 09/19/16 at 01:46; Status DC Info 1 each 1 each PRN DAILY PRN MC SEE COMMENTS; Start 09/18/16 at 14:00; Status UNV Sodium Chloride 1,000 ml @ 1,000 mls/hr Q1H PRN IV hypotension; Start 09/20/16 at 07:30; Stop 09/20/16 at 18:00; Status DC Albumin Human (Albuminar) 200 ml @ 200 mls/hr 1X PRN PRN IV Hypotension; Start 09/20/16 at 07:45; Stop 09/20/16 at 14:00; Status DC Acetaminophen (Tylenol) 500 mg 1X PRN PRN PO MILD PAIN / TEMP; Start 09/20/16 at 07:45; Stop 09/20/16 at 18:00; Status DC Diphenhydramine HCl (Benadryl) 25 mg 1X PRN PRN IV ITCHING; Start 09/20/16 at 07 :45; Stop 09/20/16 at 18:00; Status DC Diphenhydramine HCl (Benadryl) 25 mg 1X PRN PRN IV ITCHING; Start 09/20/16 at 07 :45; Stop 09/20/16 at 18:00; Status DC Sodium Chloride (Normal Saline Flush) 10 ml 1X PRN PRN IV AP catheter pack; Start 09/20/16 at 07:45; Stop 09/20/16 at 18:00; Status DC Sodium Chloride (Normal Saline Flush) 10 ml 1X PRN PRN IV [employer]ICIAN catheter pack; Start 09/20/16 at 07:45; Stop 09/20/16 at 18:00; Status DC Labetalol HCl 10 mg 10 mg PRN Q1HR PRN IVP SBP > 180; Start 09/20/16 at 07:45; Stop 09/20/16 at 18:00; Status DC Sodium Chloride (Iv Sodium Chloride 0.9% 1000ml Bag) 1,000 ml @ 400 mls/hr Q2H30M PRN IV PATENCY; Start 09/20/16 at 07:45; Stop 09/20/16 at 18:00; Status DC Info (PHARMACY MONITORING -- do not chart) 1 each PRN DAILY PRN MC SEE COMMENTS ; Start 09/20/16 at 07:45; Status UNV Warfarin Sodium (Coumadin Per Pharmacy) 1 each PRN DAILY PRN MC SEE COMMENTS Last administered on 09/20/16 17:21; Start 09/20/16 at 14:30 Warfarin Sodium (Coumadin) 2 mg 1X WARF ONCE PO Last administered on 09/20/16 17:27; Start 09/20/16 at 17:14; Stop 09/20/16 at 17:15; Status DC Methylprednisolone Acetate (Depo-Medrol 80mg Vial) 80 mg 1X ONCE IM ; Start 09/20/16 at 17:30; Stop 09/20/16 at 17:33; Status DC Methylprednisolone Acetate (Depo-Medrol 40mg Vial) 40 mg 1X ONCE IM ; Start 09/20/16 at 17:30; Stop 09/20/16 at 17:33; Status DC Bupivacaine HCl (Sensorcaine-Mpf 0.25%) 10 ml 1X ONCE IJ ; Start 09/20/16 at 17: 30; Stop 09/20/16 at 17:33; Status DC Active Scripts Active Reported [Mylanta] Tylenol (Acetaminophen) 325 Mg Tablet 1 Tab PO PRN Q4HRS Fleet Enema (Na Phos,M-B/Na Phos,Di-Ba) 133 Ml Enema 1 Each RC ONCE Dulcolax (Bisacodyl) 10 Mg Supp.rect 10 Mg RC PRN DAILY PRN Zofran Odt (Ondansetron) 8 Mg Tab.rapdis 1 Tab PO Q8HRS Nitrostat (Nitroglycerin) 0.4 Mg Tab.subl 1 Tab SL UD Cyclobenzaprine Hcl 10 Mg Tablet 1 Tab PO TID Zepatier 50-100 mg Tablet (Elbasvir/Grazoprevir) 1 Each Tablet 1 Each PO [PhosLo] Coreg (Carvedilol) 25 Mg Tablet 1 Tab PO BID Aspirin 81 Mg Tab.chew 1 Tab PO DAILY Allopurinol 100 Mg Tablet 1 Tab PO DAILY Ventolin Hfa Inhaler (Albuterol Sulfate) 18 Gm Hfa.aer.ad 2 Puff INH Q4HRS Nephplex Rx Tablet (Vit B Cmplx No3/Fa/C/Biot/Zinc) 1 Each Tablet 1 Each PO Senokot (Sennosides) 8.6 Mg Tablet 1 Tab PO BID Oxycontin (Oxycodone HCl) 10 Mg Tab.er.12h 10 Mg PO BID Glycolax (Polyethylene Glycol 3350) 119 Gm Powder 17 Gm PO UD Percocet 10-325 Mg Tablet (Oxycodone/Acetaminophen) 1 Each Tablet 1 Tab PO Q4- 6HRS Vitamin D3 (Cholecalciferol (Vitamin D3)) 1,000 Unit Tablet 1 Tab PO DAILY Advair 250-50 Diskus (Fluticasone/Salmeterol) 1 Each Disk.w.dev 1 Puff IH BID Ipratropium Douglas 0.2 Mg/1 Ml Solution 1 Vial NEB QID Lidoderm (Lidocaine) 700 Mg Adh..patch 1 Patch TP DAILY Nortriptyline Hcl 25 Mg Capsule 1 Cap PO QHS Ciprofloxacin Hcl 250 Mg Tablet 1 Tab PO BID Warfarin Sodium 2 Mg Tablet 1.5 Mg PO DAILY Gabapentin 300 Mg Capsule 300 Mg PO TID Zoloft (Sertraline Hcl) 100 Mg Tablet 1 Tab PO DAILY Vitals/I & O Vital Sign - Last 24 Hours 09/20/16 09/20/16 09/20/16 09/20/16 12:13 12:39 15:00 15:06 Temp 98.0 98.0 Pulse 85 86 Resp 20 B/P 138/79 139/77 Pulse Ox 97 96 O2 Delivery Room Air Room Air Room Air 09/20/16 09/20/16 09/20/16 09/20/16 17:27 19:00 19:29 20:00 Temp 97.3 97.3 Pulse 86 76 Resp 18 B/P 139/77 130/71 Pulse Ox 100 100 O2 Delivery Room Air Room Air Room Air O2 Flow Rate 2.0 09/20/16 09/20/16 09/21/16 09/21/16 21:08 22:38 01:08 02:55 Temp 98.6 97.3 98.6 97.3 Pulse 73 76 Resp 20 18 20 18 B/P 149/68 141/78 Pulse Ox 96 96 96 96 O2 Delivery Room Air Room Air Room Air Room Air 09/21/16 09/21/16 09/21/16 09/21/16 04:57 05:58 07:00 08:06 Temp 97.5 97.5 Pulse 76 76 Resp 20 20 18 B/P 148/75 148/75 Pulse Ox 96 96 96 O2 Delivery Room Air Room Air Room Air 09/21/16 09/21/16 09/21/16 09/21/16 08:07 08:21 10:47 11:13 Temp 97.9 97.9 Pulse 75 Resp 18 B/P 130/71 Pulse Ox 96 100 92 O2 Delivery Room Air Room Air Room Air Room Air Intake and Output 09/20/16 09/20/16 09/21/16 15:00 23:00 07:00 Intake Total 60 ml 120 ml 250 ml Balance 60 ml 120 ml 250 ml MELITA HEIN MD Sep 21, 2016 12:09
[2016-09-21 15:00] VITALS: BP 134/67
[2016-09-21] MEDS: CYCLOBENZAPRINE 10 MG TABLET. PO PRN (15:14)
--- NOTE | 2016-09-21 15:41 | RAD ---
PROCEDURE MRI of the lumbar spine without contrast HISTORY Chronic low back pain and recent fall TECHNIQUE Multisequential imaging of the lumbar spine was performed without contrast. FINDINGS There is loss of intervertebral disc material and fluid signal within the L1 L2 and L2-L3 and L3-L4 intervertebral spaces. There is marked bony edema of the endplates at L1-L2. The remaining visualized osseous structures have normal marrow signal. The conus medullaris tapers by the expected anatomic level. There is edema in the presacral space. There is a complex cyst versus mass seen anteriorly in the right kidney not well included in this study. The diffuse circumferential disc osteophytic ridges and hypertrophy of the facets and ligamentum flavum results in mild central stenosis at all levels. There is moderate narrowing of all the neuroforamen bilaterally and there is loss of fat around the exiting nerve roots on the right at L3-L4 and on the left at L3-L4 and L4-5. IMPRESSION 1. Marked discogenic disease with loss of intervertebral disc material and fluid signal at L1-L2, L2-L3 and L3-L4. There is bony endplate edema at L1-2 suggesting possible discitis and osteomyelitis. Recommend correlation with sed rate and CBC. If there is clinical in decision MR with contrast may be helpful. 2. 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 There appears to be compression of the intra foraminal course of the exiting nerve roots on the left at L3-L4 and L4-5 and on the right at L3-L4. 3. Complex cyst versus mass seen anteriorly in the right kidney. This is not well evaluated but could be a renal cell carcinoma. 4. Presacral edema is nonspecific and is of uncertain etiology. Electronically signed by: Adeel Allen MD (Sep 21, 2016 15:39:25)
[2016-09-21] MEDS ORDERED: WARFARIN 2 MG TABLET. PO ONE (16:00)
[2016-09-21 19:59] VITALS: BP 144/57
[2016-09-21] MEDS: NORTRIPTYLINE 25 MG CAPSULE PO SCH (21:47)
[2016-09-21 23:48] VITALS: BP 111/60
[2016-09-22] MEDS: OXYCODONE/APAP 10/325 TABLET. PO PRN ×3 (03:33→20:33)
[2016-09-22 03:59] VITALS: BP 158/90
[2016-09-22 05:33] LABS: INR 1.4 (0.8-1.1); PROTHROMBIN TIME PATIENT 16.5 SEC (11.7-14.0)
[2016-09-22] MEDS: ONDANSETRON ODT 4 MG TAB.RAPDIS PO SCH ×3 (06:00→22:00)
[2016-09-22 07:00] VITALS: BP 162/96
[2016-09-22] MEDS: IPRATRPIUM/ALBUTEROL 0.5/2.5MG 3 ML NEBU. NEB SCH ×4 (07:49→19:28)
[2016-09-22] MEDS: BUDESONIDE 0.5 MG/2 ML NEBU NEB SCH ×2 (07:49→19:28)
[2016-09-22] MEDS: GABAPENTIN 300 MG CAPSULE. PO SCH (08:52)
[2016-09-22] MEDS: CARVEDILOL 12.5 MG TABLET PO SCH ×2 (08:52→17:28)
[2016-09-22] MEDS: OXYCODONE ER 10 MG TAB.ER.12H. PO SCH ×2 (08:53→20:33)
[2016-09-22] MEDS: ALLOPURINOL 100 MG TABLET. PO SCH (08:53)
[2016-09-22] MEDS: SERTRALINE 50 MG TABLET. PO SCH (08:53)
[2016-09-22] MEDS: PANTOPRAZOLE 40 MG TABLET. PO SCH (08:53)
[2016-09-22] MEDS: LIDOCAINE (700MG/PATCH) PATCH. TP SCH (08:54)
[2016-09-22 11:00] VITALS: BP 155/76
--- NOTE | 2016-09-22 11:37 | PDOC ---
PROGRESS NOTES Chief Complaint Chief Complaint 1. Acute blood loss anemia, GI bleed, s/p EGD 2. ESRD, on HD MWF 3. Coumadin coagulopathy, 4. Hypertension, comtrolled 5. Asthma, hx 6. Obesity 7. Back pain 8. A fib on coumadin 9. SNU resident History of Present Illness History of Present Illness Doing ok Hgb 7.7 Warfarin resumed for he atrial fib No reports of bleeding over weekend INR 1.4 - on warf per pharmacy Needs a new SNU - wait till friday for SW - DEOS NOT WANT TO GO BACK TO [facility]: Recheck HH deon Warf per pharmacy (goal 2-3) If hgb stable at 7, and no rebleed, can go back to SNU - NEed SW - pt wants new SNU Vitals Vitals Vital Signs Date Time Temp Pulse Resp B/P Pulse Ox O2 Delivery O2 Flow Rate FiO2 09/22/16 11:14 Room Air 09/22/16 11:00 98.1 84 18 155/76 96 98.1 09/22/16 08:00 2.0 Physical Exam General: Alert, Oriented X3, Cooperative, No acute distress Heart: Normal S1, Normal S2 Lungs: Clear Abdomen: Normal bowel sounds, Soft, No tenderness, No hepatosplenomegaly Extremities: No clubbing, No cyanosis, Other (back, no spinal tenderness. ) Skin: No rashes, No significant lesion, Other Labs LABS Laboratory Tests Test 09/22/16 05:15 Prothrombin Time 16.5SEC (11.7-14.0) Prothromb Time International Ratio 1.4 (0.8-1.1) Review of Systems Review of Systems cognitive impairment Assessment and Plan Assessmemt and Plan Problems Medical Problems: (1) Anemia Status: Acute (2) Coagulopathy Status: Acute (3) Coumadin toxicity Status: Acute (4) Elevated INR (international normalized ratio) due to prior anticoagulant medication ingestion Status: Acute (5) ESRD on dialysis Status: Acute (6) GI bleed Status: Acute Problems: Comment Review of Relevant I have reviewed the following items christi (where applicable) has been applied. Labs Laboratory Tests Test 09/21/16 04:45 09/21/16 11:00 09/22/16 05:15 White Blood Count 6.0x10^3/uL (4.0-11.0) Red Blood Count 2.75x10^6/uL (3.50-5.40) Hemoglobin 7.5g/dL (12.0-15.5) Hematocrit 22.9% (36.0-47.0) Mean Corpuscular Volume 83fL (79-100) Mean Corpuscular Hemoglobin 27pg (25-35) Mean Corpuscular Hemoglobin Concent 33g/dL (31-37) Red Cell Distribution Width 16.4% (11.5-14.5) Platelet Count 242x10^3/uL (140-400) Neutrophils (%) (Auto) 74% (31-73) Lymphocytes (%) (Auto) 23% (24-48) Monocytes (%) (Auto) 3% (0-9) Eosinophils (%) (Auto) 0% (0-3) Basophils (%) (Auto) 0% (0-3) Neutrophils # (Auto) 4.4x10^3uL (1.8-7.7) Lymphocytes # (Auto) 1.4x10^3/uL (1.0-4.8) Monocytes # (Auto) 0.2x10^3/uL (0.0-1.1) Eosinophils # (Auto) 0.0x10^3/uL (0.0-0.7) Basophils # (Auto) 0.0x10^3/uL (0.0-0.2) Sodium Level 135mmol/L (136-145) Potassium Level 4.7mmol/L (3.5-5.1) Chloride Level 103mmol/L (98-107) Carbon Dioxide Level 25mmol/L (21-32) Anion Gap 7 (6-14) Blood Urea Nitrogen 13mg/dL (7-20) Creatinine 2.4mg/dL (0.6-1.0) Estimated GFR (Cockcroft-Gault) 24.9 Glucose Level 162mg/dL (70-99) Calcium Level 8.3mg/dL (8.5-10.1) Prothrombin Time 17.1SEC (11.7-14.0) 16.5SEC (11.7-14.0) Prothromb Time International Ratio 1.5 (0.8-1.1) 1.4 (0.8-1.1) Laboratory Tests Test 09/22/16 05:15 Prothrombin Time 16.5SEC (11.7-14.0) Prothromb Time International Ratio 1.4 (0.8-1.1) Medications Current Medications Oxycodone/ Acetaminophen (Percocet 5/325) 1 tab 1X ONCE PO ; Start 09/09/16 at 19:00; Stop 09/09/16 at 19:01; Status DC Hydromorphone HCl 1 mg 1 mg 1X ONCE IV Last administered on 09/09/16 19:21; Start 09/09/16 at 19:15; Stop 09/09/16 at 19:16; Status DC Pantoprazole Sodium/Sodium Chloride (Protonix Iv/Iv Sodium Chloride 0.9% 100ml) 100 ml @ 10 mls/hr 1X ONCE IV Last administered on 09/09/16 19:51; Start at 19:30; Stop 09/10/16 at 05:29; Status DC Ondansetron HCl 4 mg 4 mg PRN Q8HRS PRN IV NAUSEA/VOMITING Last administered on 09/09/16 19:51; Start 09/09/16 at 19:30; Stop 09/10/16 at 19:29; Status DC Sodium Chloride (Iv Sodium Chloride 0.9% 1000ml Bag) 1,000 ml @ 100 mls/hr Q10H IV Last administered on 09/09/16 19:51; Start 09/09/16 at 19:30; Stop at 06:00; Status DC Acetaminophen (Tylenol) 650 mg PRN Q4HRS PRN PO FEVER Last administered on 09/09 19:52; Start 09/09/16 at 19:30; Stop 09/10/16 at 19:29; Status DC Multi-Ingredient Mouthwash/Gargle 15 ml 15 ml 1X ONCE SWSW Last administered on 09/09/16 23:41; Start 09/09/16 at 23:30; Stop 09/09/16 at 23:31; Status DC Phytonadione/ Sodium Chloride (Vitamin K/Iv Sodium Chloride 0.9% 50ml) 51 ml @ 102 mls/hr 1X ONCE IV Last administered on 09/10/16 02:07; Start 09/10/16 at 00:00; Stop 09/10/16 at 00:29; Status DC Acetaminophen (Tylenol) 325 mg PRN Q4HRS PO ; Start 09/09/16 at 23:30; Stop at 23:30; Status DC Allopurinol (Zyloprim) 100 mg DAILY PO Last administered on 09/22/16 08:53; Start 09/10/16 at 09:00 Bisacodyl (Dulcolax Supp) 10 mg PRN DAILY PRN RC CONSTIPATION; Start 09/09/16 at 23:30 Cyclobenzaprine HCl (Flexeril) 10 mg PRN TID PRN PO back pain Last administered on 09/21/16 15:14; Start 09/09/16 at 23:30 Gabapentin (Neurontin) 300 mg DAILY PO Last administered on 09/22/16 08:52; Start 09/10/16 at 09:00 Ipratropium [place] (Atrovent) 0.2 mg QID NEB ; Start 09/10/16 at 09:00; Status UNV Lidocaine (Lidoderm) 1 patch DAILY TP Last administered on 09/22/16 08:54; Start 09/10/16 at 09:00 Nortriptyline HCl (Pamelor) 25 mg QHS PO Last administered on 09/21/16 21:47; Start 09/10/16 at 21:00 Oxycodone HCl (Oxycontin) 10 mg BID PO Last administered on 09/22/16 08:53; Start 09/10/16 at 09:00 Oxycodone/ Acetaminophen (Percocet 10/325) 1 tab PRN Q4HRS PRN PO SEVERE PAIN Last administered on 09/22/16 03:33; Start 09/09/16 at 23:30 Non-Formulary Medication 2 puff Q4HRS INH FOR ASTHMA; Start 09/10/16 at 00:00; Status UNV Carvedilol (Coreg) 25 mg BIDWMEALS PO Last administered on 09/22/16 08:52; Start 09/10/16 at 08:00 Non-Formulary Medication 1 puff BID IH ; Start 09/10/16 at 09:00; Status UNV Ondansetron HCl (Zofran Odt) 8 mg Q8HRS PO Last administered on 09/21/16 05:53 ; Start 09/10/16 at 06:00 Sertraline HCl (Zoloft) 100 mg DAILY PO Last administered on 09/22/16 08:53; Start 09/10/16 at 09:00 Labetalol HCl (Normodyne) 20 mg PRN Q2HR PRN IVP HYPERTENSION, SEE COMMENTS Last administered on 09/13/16 00:17; Start 09/09/16 at 23:30 Albuterol/ Ipratropium (Duoneb) 3 ml RTQID NEB Last administered on 09/22/16 11 :13; Start 09/10/16 at 08:00 Budesonide (Pulmicort) 0.5 mg RTBID NEB Last administered on 09/22/16 07:49; Start 09/10/16 at 08:00 Albuterol Sulfate 2.5 mg 2.5 mg PRN Q4HRS PRN NEB SHORTNESS OF BREATH; Start at 23:30 Pantoprazole Sodium 80 mg/ Sodium Chloride 100 ml @ 10 mls/hr Q10H IV Last administered on 09/13/16 07:51; Start 09/10/16 at 10:00; Stop 09/13/16 at 09:59 ; Status DC Magnesium Sulfate/ Dextrose 50 ml @ 25 mls/hr PRN DAILY PRN IV for Mag < 1.7 on am labs; Start 09/10/16 at 10:00 Sodium Chloride (Iv Sodium Chloride 0.9% 1000ml Bag) 1,000 ml @ 1,000 mls/hr Q1H PRN IV hypotension; Start 09/11/16 at 08:50; Stop 09/11/16 at 14:49; Status DC Diphenhydramine HCl (Benadryl) 25 mg 1X PRN PRN IV ITCHING; Start 09/11/16 at 09:00; Stop 09/12/16 at 08:59; Status DC Diphenhydramine HCl (Benadryl) 25 mg 1X PRN PRN IV ITCHING; Start 09/11/16 at 09:00; Stop 09/12/16 at 08:59; Status DC Sodium Chloride (Normal Saline Flush) 10 ml 1X PRN PRN IV AP catheter pack; Start 09/11/16 at 09:00; Stop 09/12/16 at 08:59; Status DC Sodium Chloride (Normal Saline Flush) 10 ml 1X PRN PRN IV DESIGN ASSISTANT catheter pack; Start 09/11/16 at 09:00; Stop 09/12/16 at 08:59; Status DC Labetalol HCl 10 mg 10 mg PRN Q1HR PRN IVP SBP > 180; Start 09/11/16 at 09:00; Stop 09/12/16 at 08:59; Status DC Sodium Chloride (Iv Sodium Chloride 0.9% 1000ml Bag) 1,000 ml @ 400 mls/hr Q2H30M PRN IV PATENCY; Start 09/11/16 at 08:50; Stop 09/11/16 at 20:49; Status DC Info (PHARMACY MONITORING -- do not chart) 1 each PRN DAILY PRN MC SEE COMMENTS ; Start 09/11/16 at 09:00 Info (PHARMACY MONITORING -- do not chart) 1 each PRN DAILY PRN MC SEE COMMENTS ; Start 09/11/16 at 09:00; Status UNV Sodium Cl/Sod Bicarb/Potass Cl/ PEG (Golytely) 4,000 ml 1X ONCE PO Last administered on 09/11/16t 17:13; Start 09/11/16 at 13:00; Stop 09/11/16 at 13:01 ; Status DC Fentanyl Citrate (Fentanyl 2ml Vial) 25 mcg PRN Q5MIN PRN IV MILD PAIN; Start 09/12/16 at 07:00; Stop 09/13/16 at 06:59; Status DC Fentanyl Citrate 50 mcg 50 mcg PRN Q5MIN PRN IV MODERATE PAIN; Start 09/12/16 at 07:00; Stop 09/13/16 at 06:59; Status DC Lactated Ringer's (Iv Lactated Ringers) 1,000 ml @ 0 mls/hr Q0M IV ; Start at 07:00; Stop 09/12/16 at 18:59; Status DC Lidocaine HCl 2 ml 1X PRN PRN ID IV START; Start 09/12/16 at 07:00; Stop at 06:59; Status DC Prochlorperazine Edisylate (Compazine) 5 mg PACU PRN PRN IV NAUSEA; Start 09/12 at 07:00; Stop 09/13/16 at 06:59; Status DC Pantoprazole Sodium 40 mg 40 mg DAILYAC IVP ; Start 09/13/16 at 07:30; Status UNV Magnesium Sulfate/ Dextrose 50 ml @ 25 mls/hr 1X ONCE IV ; Start 09/12/16 at 11 :30; Stop 09/12/16 at 13:29; Status DC Propofol 0 ml @ As Directed STK-MED ONCE IV ; Start 09/12/16 at 12:55; Stop at 12:56; Status DC Propofol (Diprivan) 20 ml @ As Directed STK-MED ONCE IV ; Start 09/12/16 at 12: 55; Stop 09/12/16 at 12:56; Status Cancel Lidocaine HCl (Lidocaine Pf 2% Vial) 5 ml STK-MED ONCE .ROUTE ; Start 09/12/16 at 12:55; Stop 09/12/16 at 12:56; Status DC Lorazepam (Ativan) 2 mg PRN Q4HRS PRN IV ANXIETY / AGITATION; Start 09/12/16 at 14:15 Lorazepam (Ativan) 2 mg Q4HRS PRN IV ANXIETY / AGITATION; Start 09/12/16 at 14: 15; Status UNV Haloperidol Lactate (Haldol) 2.5 mg PRN Q6HRS PRN IM AGITATION; Start 09/12/16 at 14:15 Haloperidol Lactate (Haldol) 2.5 mg PRN Q6HRS PRN IVP AGITATION; Start at 14:15 Lorazepam 2 mg 2 mg PRN Q4HRS PRN IM ANXIETY / AGITATION; Start 09/12/16 at 14: 30; Stop 09/17/16 at 14:37; Status DC Sodium Chloride (Iv Sodium Chloride 0.9% 1000ml Bag) 1,000 ml @ 1,000 mls/hr Q1H PRN IV hypotension; Start 09/13/16 at 08:39; Stop 09/13/16 at 14:38; Status DC Diphenhydramine HCl (Benadryl) 25 mg 1X PRN PRN IV ITCHING; Start 09/13/16 at 08:45; Stop 09/14/16 at 08:44; Status DC Diphenhydramine HCl (Benadryl) 25 mg 1X PRN PRN IV ITCHING; Start 09/13/16 at 08:45; Stop 09/14/16 at 08:44; Status DC Sodium Chloride (Normal Saline Flush) 10 ml 1X PRN PRN IV AP catheter pack; Start 09/13/16 at 08:45; Stop 09/14/16 at 08:44; Status DC Sodium Chloride (Normal Saline Flush) 10 ml 1X PRN PRN IV DESIGN ASSISTANT catheter pack; Start 09/13/16 at 08:45; Stop 09/14/16 at 08:44; Status DC Labetalol HCl (Normodyne) 10 mg PRN Q1HR PRN IVP SBP > 180; Start 09/13/16 at 08:45; Stop 09/14/16 at 08:44; Status DC Info (PHARMACY MONITORING -- do not chart) 1 each PRN DAILY PRN MC SEE COMMENTS ; Start 09/13/16 at 08:45; Status UNV Info (PHARMACY MONITORING -- do not chart) 1 each PRN DAILY PRN MC SEE COMMENTS ; Start 09/13/16 at 08:45; Status UNV Pantoprazole Sodium 40 mg 40 mg DAILYAC IVP Last administered on 09/16/16t 05: 57; Start 09/13/16 at 13:00; Stop 09/17/16 at 10:02; Status DC Sodium Chloride (Iv Sodium Chloride 0.9% 1000ml Bag) 1,000 ml @ 1,000 mls/hr Q1H PRN IV hypotension; Start 09/16/16 at 08:46; Stop 09/16/16 at 14:45; Status DC Diphenhydramine HCl (Benadryl) 25 mg 1X PRN PRN IV ITCHING; Start 09/16/16 at 09:00; Stop 09/17/16 at 08:59; Status DC Diphenhydramine HCl (Benadryl) 25 mg 1X PRN PRN IV ITCHING; Start 09/16/16 at 09:00; Stop 09/17/16 at 08:59; Status DC Sodium Chloride (Normal Saline Flush) 10 ml 1X PRN PRN IV AP catheter pack; Start 09/16/16 at 09:00; Stop 09/17/16 at 08:59; Status DC Sodium Chloride (Normal Saline Flush) 10 ml 1X PRN PRN IV DESIGN ASSISTANT catheter pack; Start 09/16/16 at 09:00; Stop 09/17/16 at 08:59; Status DC Info (PHARMACY MONITORING -- do not chart) 1 each PRN DAILY PRN MC SEE COMMENTS ; Start 09/16/16 at 09:00; Status UNV Info (PHARMACY MONITORING -- do not chart) 1 each PRN DAILY PRN MC SEE COMMENTS ; Start 09/16/16 at 09:00; Status UNV Darbepoetin Ernst (Aranesp) 60 mcg [id number] SQ Last administered on 09/16/16 22 :28; Start 09/16/16 at 21:00 Pantoprazole Sodium (Protonix) 40 mg DAILYAC PO Last administered on 09/22/16 08:53; Start 09/17/16 at 10:02 Fentanyl Citrate (Fentanyl 2ml Vial) 25 mcg PRN Q5MIN PRN IV MILD PAIN; Start 09/18/16 at 07:00; Stop 09/19/16 at 06:59; Status DC Fentanyl Citrate 50 mcg 50 mcg PRN Q5MIN PRN IV MODERATE PAIN; Start 09/18/16 at 07:00; Stop 09/19/16 at 06:59; Status DC Lactated Ringer's (Iv Lactated Ringers) 1,000 ml @ 0 mls/hr Q0M IV ; Start 09/18 at 07:00; Stop 09/18/16 at 18:59; Status DC Lidocaine HCl 2 ml 1X PRN PRN ID IV START; Start 09/18/16 at 07:00; Stop at 06:59; Status DC Prochlorperazine Edisylate (Compazine) 5 mg PACU PRN PRN IV NAUSEA; Start at 07:00; Stop 09/19/16 at 06:59; Status DC Dextrose 25 gm 25 gm STK-MED ONCE IV Last administered on 09/18/16 08:19; Start 09/18/16 at 08:19; Stop 09/18/16 at 08:20; Status DC Propofol (Diprivan) 20 ml @ As Directed STK-MED ONCE IV ; Start 09/18/16 at 11:13 ; Stop 09/18/16 at 11:14; Status DC Lidocaine HCl 5 ml 5 ml STK-MED ONCE .ROUTE ; Start 09/18/16 at 11:13; Stop at 11:14; Status DC Sodium Chloride 1,000 ml @ 100 mls/hr 1X ONCE IV Last administered on t 11:29; Start 09/18/16 at 11:30; Stop 09/18/16 at 21:29; Status DC Sodium Chloride (Iv Sodium Chloride 0.9% 1000ml Bag) 1,000 ml @ 1,000 mls/hr Q1H PRN IV hypotension; Start 09/18/16 at 13:47; Stop 09/18/16 at 19:46; Status DC Acetaminophen (Tylenol) 500 mg 1X PRN PRN PO MILD PAIN / TEMP; Start 09/18/16 at 14:00; Stop 09/19/16 at 13:59; Status DC Diphenhydramine HCl (Benadryl) 25 mg 1X PRN PRN IV ITCHING; Start 09/18/16 at 14 :00; Stop 09/19/16 at 13:59; Status DC Diphenhydramine HCl (Benadryl) 25 mg 1X PRN PRN IV ITCHING; Start 09/18/16 at 14 :00; Stop 09/19/16 at 13:59; Status DC Labetalol HCl 10 mg 10 mg PRN Q1HR PRN IVP SBP > 180; Start 09/18/16 at 14:00; Stop 09/19/16 at 13:59; Status DC Sodium Chloride (Iv Sodium Chloride 0.9% 1000ml Bag) 1,000 ml @ 400 mls/hr Q2H30M PRN IV PATENCY; Start 09/18/16 at 13:47; Stop 09/19/16 at 01:46; Status DC Info 1 each 1 each PRN DAILY PRN MC SEE COMMENTS; Start 09/18/16 at 14:00; Status UNV Sodium Chloride 1,000 ml @ 1,000 mls/hr Q1H PRN IV hypotension; Start 09/20/16 at 07:30; Stop 09/20/16 at 18:00; Status DC Albumin Human (Albuminar) 200 ml @ 200 mls/hr 1X PRN PRN IV Hypotension; Start 09/20/16 at 07:45; Stop 09/20/16 at 14:00; Status DC Acetaminophen (Tylenol) 500 mg 1X PRN PRN PO MILD PAIN / TEMP; Start 09/20/16 at 07:45; Stop 09/20/16 at 18:00; Status DC Diphenhydramine HCl (Benadryl) 25 mg 1X PRN PRN IV ITCHING; Start 09/20/16 at 07 :45; Stop 09/20/16 at 18:00; Status DC Diphenhydramine HCl (Benadryl) 25 mg 1X PRN PRN IV ITCHING; Start 09/20/16 at 07 :45; Stop 09/20/16 at 18:00; Status DC Sodium Chloride (Normal Saline Flush) 10 ml 1X PRN PRN IV AP catheter pack; Start 09/20/16 at 07:45; Stop 09/20/16 at 18:00; Status DC Sodium Chloride (Normal Saline Flush) 10 ml 1X PRN PRN IV DESIGN ASSISTANT catheter pack; Start 09/20/16 at 07:45; Stop 09/20/16 at 18:00; Status DC Labetalol HCl 10 mg 10 mg PRN Q1HR PRN IVP SBP > 180; Start 09/20/16 at 07:45; Stop 09/20/16 at 18:00; Status DC Sodium Chloride (Iv Sodium Chloride 0.9% 1000ml Bag) 1,000 ml @ 400 mls/hr Q2H30M PRN IV PATENCY; Start 09/20/16 at 07:45; Stop 09/20/16 at 18:00; Status DC Info (PHARMACY MONITORING -- do not chart) 1 each PRN DAILY PRN MC SEE COMMENTS ; Start 09/20/16 at 07:45; Status UNV Warfarin Sodium (Coumadin Per Pharmacy) 1 each PRN DAILY PRN MC SEE COMMENTS Last administered on 09/22/16 11:06; Start 09/20/16 at 14:30 Warfarin Sodium (Coumadin) 2 mg 1X WARF ONCE PO Last administered on 09/20/16 17:27; Start 09/20/16 at 17:14; Stop 09/20/16 at 17:15; Status DC Methylprednisolone Acetate (Depo-Medrol 80mg Vial) 80 mg 1X ONCE IM ; Start 09/20/16 at 17:30; Stop 09/20/16 at 17:33; Status DC Methylprednisolone Acetate (Depo-Medrol 40mg Vial) 40 mg 1X ONCE IM ; Start 09/20/16 at 17:30; Stop 09/20/16 at 17:33; Status DC Bupivacaine HCl (Sensorcaine-Mpf 0.25%) 10 ml 1X ONCE IJ ; Start 09/20/16 at 17: 30; Stop 09/20/16 at 17:33; Status DC Warfarin Sodium (Coumadin) 2 mg 1X WARF ONCE PO Last administered on 09/21/16t 17:14; Start 09/21/16 at 16:00; Stop 09/21/16 at 16:01; Status DC Warfarin Sodium (Coumadin) 3 mg 1X WARF ONCE PO ; Start 09/22/16 at 16:00; Stop 09/22/16 at 16:01 Active Scripts Active Reported [Mylanta] Tylenol (Acetaminophen) 325 Mg Tablet 1 Tab PO PRN Q4HRS Fleet Enema (Na Phos,M-B/Na Phos,Di-Ba) 133 Ml Enema 1 Each RC ONCE Dulcolax (Bisacodyl) 10 Mg Supp.rect 10 Mg RC PRN DAILY PRN Zofran Odt (Ondansetron) 8 Mg Tab.rapdis 1 Tab PO PRN Q8HRS PRN Nitrostat (Nitroglycerin) 0.4 Mg Tab.subl 1 Tab SL UD Cyclobenzaprine Hcl 10 Mg Tablet 1 Tab PO TID Zepatier 50-100 mg Tablet (Elbasvir/Grazoprevir) 1 Each Tablet 1 Each PO [PhosLo] Coreg (Carvedilol) 25 Mg Tablet 1 Tab PO BID Aspirin 81 Mg Tab.chew 1 Tab PO DAILY Allopurinol 100 Mg Tablet 1 Tab PO DAILY Ventolin Hfa Inhaler (Albuterol Sulfate) 18 Gm Hfa.aer.ad 2 Puff INH Q4HRS Nephplex Rx Tablet (Vit B Cmplx No3/Fa/C/Biot/Zinc) 1 Each Tablet 1 Each PO Senokot (Sennosides) 8.6 Mg Tablet 1 Tab PO BID Oxycontin (Oxycodone HCl) 10 Mg Tab.er.12h 10 Mg PO BID Glycolax (Polyethylene Glycol 3350) 119 Gm Powder 17 Gm PO UD Percocet 10-325 Mg Tablet (Oxycodone/Acetaminophen) 1 Each Tablet 1 Tab PO Q4- 6HRS Vitamin D3 (Cholecalciferol (Vitamin D3)) 1,000 Unit Tablet 1 Tab PO DAILY Advair 250-50 Diskus (Fluticasone/Salmeterol) 1 Each Disk.w.dev 1 Puff IH BID Ipratropium [place] 0.2 Mg/1 Ml Solution 1 Vial NEB QID Lidoderm (Lidocaine) 700 Mg Adh..patch 1 Patch TP DAILY Nortriptyline Hcl 25 Mg Capsule 1 Cap PO QHS Ciprofloxacin Hcl 250 Mg Tablet 1 Tab PO BID Warfarin Sodium 2 Mg Tablet 1.5 Mg PO DAILY Gabapentin 300 Mg Capsule 300 Mg PO TID Zoloft (Sertraline Hcl) 100 Mg Tablet 1 Tab PO DAILY Vitals/I & O Vital Sign - Last 24 Hours 09/21/16 09/21/16 09/21/16 09/21/16 15:00 15:14 15:45 17:14 Temp 98.2 98.2 Pulse 81 86 Resp 18 B/P 134/67 144/84 Pulse Ox 93 92 O2 Delivery Room Air Room Air Room Air 09/21/16 09/21/16 09/21/16 09/21/16 19:55 19:56 19:59 21:48 Temp 98.0 98.0 Pulse 81 Resp B/P 144/57 Pulse Ox 98 98 95 95 O2 Delivery Room Air Room Air Room Air Room Air 09/21/16 09/22/16 09/22/16 09/22/16 23:48 02:01 03:33 03:59 Temp 98.6 97.6 98.6 97.6 Pulse 84 88 Resp 18 17 16 18 B/P 111/60 158/90 Pulse Ox 95 95 95 97 O2 Delivery Room Air Room Air Room Air Room Air 09/22/16 09/22/16 09/22/16 09/22/16 04:30 07:00 07:51 07:52 Temp 97.9 97.9 Pulse 88 Resp 18 B/P 162/96 Pulse Ox 97 97 98 98 O2 Delivery Room Air Room Air Room Air Room Air 09/22/16 09/22/16 09/22/16 09/22/16 08:00 08:52 08:53 11:00 Temp 98.1 98.1 Pulse 88 84 Resp 18 B/P 162/96 155/76 Pulse Ox 93 96 O2 Delivery Room Air Room Air Room Air O2 Flow Rate 2.0 09/22/16 11:14 O2 Delivery Room Air Intake and Output 09/21/16 09/21/16 09/22/16 15:00 23:00 07:00 Intake Total 240 ml 0 ml 450 ml Balance 240 ml 0 ml 450 ml MELITA HEIN MD Sep 22, 2016 11:37
[2016-09-22 15:00] VITALS: BP 136/75
[2016-09-22] MEDS ORDERED: WARFARIN 3 MG TABLET. PO ONE (16:00)
[2016-09-22 19:00] VITALS: BP 137/82
[2016-09-22] MEDS: NORTRIPTYLINE 25 MG CAPSULE PO SCH (20:32)
[2016-09-22 23:00] VITALS: BP 130/71
[2016-09-23 03:00] VITALS: BP 152/83
[2016-09-23 05:12] LABS: HEMATOCRIT 22.7 % (36.0-47.0); HEMOGLOBIN 7.3 g/dL (12.0-15.5); RED BLOOD COUNT 2.65 x10^6/uL (3.50-5.40); RED CELL DISTRIBUTION WIDTH 16.8 % (11.5-14.5); WHITE BLOOD COUNT 8.7 x10^3/uL (4.0-11.0)
[2016-09-23 05:25] LABS: INR 1.4 (0.8-1.1); PROTHROMBIN TIME PATIENT 16.5 SEC (11.7-14.0)
[2016-09-23 05:37] LABS: CALCIUM 8.3 mg/dL (8.5-10.1); GFR 13.8
[2016-09-23] MEDS: ONDANSETRON ODT 4 MG TAB.RAPDIS PO SCH ×3 (06:00→20:41)
[2016-09-23] MEDS: OXYCODONE/APAP 10/325 TABLET. PO PRN ×2 (06:42→17:56)
[2016-09-23] MEDS: IPRATRPIUM/ALBUTEROL 0.5/2.5MG 3 ML NEBU. NEB SCH ×4 (07:44→20:00)
[2016-09-23] MEDS: BUDESONIDE 0.5 MG/2 ML NEBU NEB SCH ×2 (07:44→20:00)
[2016-09-23 07:52] VITALS: BP 148/77
--- NOTE | 2016-09-23 08:15 | PDOC3 ---
Discharge Summary Visit Information Date of Admission: Sep 09, 2016 Date of Discharge: Sep 23, 2016 Admitting Diagnosis Comment: 1. Acute blood loss anemia, GI bleed, s/p EGD 2. ESRD, on HD MWF 3. Coumadin coagulopathy, 4. Hypertension, comtrolled 5. Asthma, hx 6. Obesity 7. Back pain 8. A fib on coumadin 9. SNU resident Final Diagnosis Problems Medical Problems: (1) Anemia Status: Acute (2) Coagulopathy Status: Acute (3) Coumadin toxicity Status: Acute (4) Elevated INR (international normalized ratio) due to prior anticoagulant medication ingestion Status: Acute (5) ESRD on dialysis Status: Acute (6) GI bleed Status: Acute Brief Hospital Course Allergies Allergies Coded Allergies Type Severity Reaction Last Updated Verified erythromycin base Allergy Intermediate 09/18/16 Yes morphine Allergy Intermediate 09/18/16 Yes Vital Signs Vital Signs Date Time Temp Pulse Resp B/P Pulse Ox O2 Delivery O2 Flow Rate FiO2 09/23/16 07:52 97.9 83 18 148/77 99 Room Air 97.9 09/22/16 08:00 2.0 Lab Results Laboratory Tests Test 09/21/16 11:00 09/22/16 05:15 09/23/16 04:05 09/23/16 04:50 Prothrombin Time 17.1SEC (11.7-14.0) 16.5SEC (11.7-14.0) 16.5SEC (11.7-14.0) Prothromb Time International Ratio 1.5 (0.8-1.1) 1.4 (0.8-1.1) 1.4 (0.8-1.1) White Blood Count 8.7x10^3/uL (4.0-11.0) Red Blood Count 2.65x10^6/uL (3.50-5.40) Hemoglobin 7.3g/dL (12.0-15.5) Hematocrit 22.7% (36.0-47.0) Mean Corpuscular Volume 85fL (79-100) Mean Corpuscular Hemoglobin 27pg (25-35) Mean Corpuscular Hemoglobin Concent 32g/dL (31-37) Red Cell Distribution Width 16.8% (11.5-14.5) Platelet Count 254x10^3/uL (140-400) Sodium Level 133mmol/L (136-145) Potassium Level 5.0mmol/L (3.5-5.1) Chloride Level 100mmol/L (98-107) Carbon Dioxide Level 27mmol/L (21-32) Anion Gap 6 (6-14) Blood Urea Nitrogen 37mg/dL (7-20) Creatinine 4.0mg/dL (0.6-1.0) Estimated GFR (Cockcroft-Gault) 13.8 Glucose Level 96mg/dL (70-99) Calcium Level 8.3mg/dL (8.5-10.1) Laboratory Tests Test 09/23/16 04:05 09/23/16 04:50 White Blood Count 8.7x10^3/uL (4.0-11.0) Red Blood Count 2.65x10^6/uL (3.50-5.40) Hemoglobin 7.3g/dL (12.0-15.5) Hematocrit 22.7% (36.0-47.0) Mean Corpuscular Volume 85fL (79-100) Mean Corpuscular Hemoglobin 27pg (25-35) Mean Corpuscular Hemoglobin Concent 32g/dL (31-37) Red Cell Distribution Width 16.8% (11.5-14.5) Platelet Count 254x10^3/uL (140-400) Prothrombin Time 16.5SEC (11.7-14.0) Prothromb Time International Ratio 1.4 (0.8-1.1) Sodium Level 133mmol/L (136-145) Potassium Level 5.0mmol/L (3.5-5.1) Chloride Level 100mmol/L (98-107) Carbon Dioxide Level 27mmol/L (21-32) Anion Gap 6 (6-14) Blood Urea Nitrogen 37mg/dL (7-20) Creatinine 4.0mg/dL (0.6-1.0) Estimated GFR (Cockcroft-Gault) 13.8 Glucose Level 96mg/dL (70-99) Calcium Level 8.3mg/dL (8.5-10.1) Brief Hospital Course Ms. Galvan is a 61 old aa FEMALE ADMITTED FOR UPPER Gi BLEED NEEDED egd, NO BLEEDING Source. On coumadin, No more bleeds,.hemodynacmially stable,. Need to cont coumadin. Needs new SNU, does not want to go back to [facility]. MAr done Pt seen and examined Dispo: SNU COnsults; GI Proc: EGD Time 32 mins Discharge Information Condition at Discharge: Improved, Stable Disposition/Orders: Other ([facility]NU) Scheduled Acetaminophen (Tylenol) 1 TAB PO PRN Q4HRS (Reported) Albuterol Sulfate (Ventolin Hfa Inhaler) 2 PUFF INH Q4HRS (Reported) Allopurinol (Allopurinol) 1 TAB PO DAILY (Reported) Aspirin (Aspirin) 1 TAB PO DAILY (Reported) Carvedilol (Coreg) 1 TAB PO BID (Reported) Cholecalciferol (Vitamin D3) (Vitamin D3) 1 TAB PO DAILY (Reported) Ciprofloxacin Hcl (Ciprofloxacin Hcl) 1 TAB PO BID (Reported) Cyclobenzaprine Hcl (Cyclobenzaprine Hcl) 1 TAB PO TID (Reported) Fluticasone/Salmeterol (Advair 250-50 Diskus) 1 PUFF IH BID (Reported) Gabapentin (Gabapentin) 300 MG PO TID (Reported) Ipratropium [place] (Ipratropium Eudora) 1 VIAL NEB QID (Reported) Lidocaine (Lidoderm) 1 PATCH TP DAILY (Reported) Na Phos,M-B/Na Phos,Di-Ba (Fleet Enema) 1 EACH RC ONCE (Reported) Nitroglycerin (Nitrostat) 1 TAB SL UD (Reported) Nortriptyline Hcl (Nortriptyline Hcl) 1 CAP PO QHS (Reported) Oxycodone Hcl (Oxycontin) 10 MG PO BID (Reported) Oxycodone/Apap 10-325 (Percocet 10-325 Mg Tablet) 1 TAB PO Q4-6HRS (Reported) Polyethylene Glycol 3350 (Glycolax) 17 GM PO UD (Reported) Sennosides (Senokot) 1 TAB PO BID (Reported) Sertraline Hcl (Zoloft) 1 TAB PO DAILY (Reported) Warfarin Sodium (Warfarin Sodium) 1.5 MG PO DAILY (Reported) Scheduled PRN Bisacodyl (Dulcolax) 10 MG RC PRN DAILY PRN PRN CONSTIPATION (Reported) Ondansetron (Zofran Odt) 1 TAB PO PRN Q8HRS PRN PRN NAUSEA (Reported) Miscellaneous Medications ([PhosLo]) (Reported) ([Mylanta]) (Reported) Elbasvir/Grazoprevir (Zepatier 50-100 mg Tablet) 1 EACH PO (Reported) Vit B Cmplx No3/Fa/C/Biot/Zinc (Nephplex Rx Tablet) 1 EACH PO (Reported) MELITA HEIN MD Sep 23, 2016 08:15
[2016-09-23] MEDS: LIDOCAINE (700MG/PATCH) PATCH. TP SCH (08:57)
[2016-09-23] MEDS: SERTRALINE 50 MG TABLET. PO SCH (08:57)
[2016-09-23] MEDS: ALLOPURINOL 100 MG TABLET. PO SCH (08:58)
[2016-09-23] MEDS: CARVEDILOL 12.5 MG TABLET PO SCH ×2 (08:58→17:35)
[2016-09-23] MEDS: GABAPENTIN 300 MG CAPSULE. PO SCH (08:58)
[2016-09-23] MEDS: OXYCODONE ER 10 MG TAB.ER.12H. PO SCH ×2 (08:58→20:41)
[2016-09-23] MEDS: PANTOPRAZOLE 40 MG TABLET. PO SCH (08:58)
--- NOTE | 2016-09-23 09:00 | PDOC ---
PROGRESS NOTES Chief Complaint Chief Complaint 1. Acute blood loss anemia, GI bleed, s/p EGD 2. ESRD, on HD MWF 3. Coumadin coagulopathy, 4. Hypertension, comtrolled 5. Asthma, hx 6. Obesity 7. Back pain 8. A fib on coumadin 9. SNU resident History of Present Illness History of Present Illness Doing ok Hgb 7.7 Warfarin resumed for he atrial fib No reports of bleeding over weekend INR 1.4 - on warf per pharmacy Needs a new SNU - wait till friday for SW - DEOS NOT WANT TO GO BACK TO [facility] today - no acute compression fx - but could be infectious? NO fevers no white ct [facility] physiatry- will check ESR and possibly neurosx consults MRI images reviewed with physiatry Vitals Vitals Vital Signs Date Time Temp Pulse Resp B/P Pulse Ox O2 Delivery O2 Flow Rate FiO2 09/23/16 07:52 97.9 83 18 148/77 99 Room Air 97.9 09/22/16 08:00 2.0 Physical Exam General: Alert, Oriented X3, Cooperative, No acute distress Heart: Normal S1, Normal S2 Lungs: Clear Abdomen: Normal bowel sounds, Soft, No tenderness, No hepatosplenomegaly Extremities: No clubbing, No cyanosis, Other (back, no spinal tenderness. ) Skin: No rashes, No significant lesion, Other Labs LABS Laboratory Tests Test 09/23/16 04:05 09/23/16 04:50 White Blood Count 8.7x10^3/uL (4.0-11.0) Red Blood Count 2.65x10^6/uL (3.50-5.40) Hemoglobin 7.3g/dL (12.0-15.5) Hematocrit 22.7% (36.0-47.0) Mean Corpuscular Volume 85fL (79-100) Mean Corpuscular Hemoglobin 27pg (25-35) Mean Corpuscular Hemoglobin Concent 32g/dL (31-37) Red Cell Distribution Width 16.8% (11.5-14.5) Platelet Count 254x10^3/uL (140-400) Prothrombin Time 16.5SEC (11.7-14.0) Prothromb Time International Ratio 1.4 (0.8-1.1) Sodium Level 133mmol/L (136-145) Potassium Level 5.0mmol/L (3.5-5.1) Chloride Level 100mmol/L (98-107) Carbon Dioxide Level 27mmol/L (21-32) Anion Gap 6 (6-14) Blood Urea Nitrogen 37mg/dL (7-20) Creatinine 4.0mg/dL (0.6-1.0) Estimated GFR (Cockcroft-Gault) 13.8 Glucose Level 96mg/dL (70-99) Calcium Level 8.3mg/dL (8.5-10.1) Assessment and Plan Assessmemt and Plan Problems Medical Problems: (1) Anemia Status: Acute (2) Coagulopathy Status: Acute (3) Coumadin toxicity Status: Acute (4) Elevated INR (international normalized ratio) due to prior anticoagulant medication ingestion Status: Acute (5) ESRD on dialysis Status: Acute (6) GI bleed Status: Acute Problems: Comment Review of Relevant I have reviewed the following items christi (where applicable) has been applied. Labs Laboratory Tests Test 09/21/16 11:00 09/22/16 05:15 09/23/16 04:05 09/23/16 04:50 Prothrombin Time 17.1SEC (11.7-14.0) 16.5SEC (11.7-14.0) 16.5SEC (11.7-14.0) Prothromb Time International Ratio 1.5 (0.8-1.1) 1.4 (0.8-1.1) 1.4 (0.8-1.1) White Blood Count 8.7x10^3/uL (4.0-11.0) Red Blood Count 2.65x10^6/uL (3.50-5.40) Hemoglobin 7.3g/dL (12.0-15.5) Hematocrit 22.7% (36.0-47.0) Mean Corpuscular Volume 85fL (79-100) Mean Corpuscular Hemoglobin 27pg (25-35) Mean Corpuscular Hemoglobin Concent 32g/dL (31-37) Red Cell Distribution Width 16.8% (11.5-14.5) Platelet Count 254x10^3/uL (140-400) Sodium Level 133mmol/L (136-145) Potassium Level 5.0mmol/L (3.5-5.1) Chloride Level 100mmol/L (98-107) Carbon Dioxide Level 27mmol/L (21-32) Anion Gap 6 (6-14) Blood Urea Nitrogen 37mg/dL (7-20) Creatinine 4.0mg/dL (0.6-1.0) Estimated GFR (Cockcroft-Gault) 13.8 Glucose Level 96mg/dL (70-99) Calcium Level 8.3mg/dL (8.5-10.1) Laboratory Tests Test 09/23/16 04:05 09/23/16 04:50 White Blood Count 8.7x10^3/uL (4.0-11.0) Red Blood Count 2.65x10^6/uL (3.50-5.40) Hemoglobin 7.3g/dL (12.0-15.5) Hematocrit 22.7% (36.0-47.0) Mean Corpuscular Volume 85fL (79-100) Mean Corpuscular Hemoglobin 27pg (25-35) Mean Corpuscular Hemoglobin Concent 32g/dL (31-37) Red Cell Distribution Width 16.8% (11.5-14.5) Platelet Count 254x10^3/uL (140-400) Prothrombin Time 16.5SEC (11.7-14.0) Prothromb Time International Ratio 1.4 (0.8-1.1) Sodium Level 133mmol/L (136-145) Potassium Level 5.0mmol/L (3.5-5.1) Chloride Level 100mmol/L (98-107) Carbon Dioxide Level 27mmol/L (21-32) Anion Gap 6 (6-14) Blood Urea Nitrogen 37mg/dL (7-20) Creatinine 4.0mg/dL (0.6-1.0) Estimated GFR (Cockcroft-Gault) 13.8 Glucose Level 96mg/dL (70-99) Calcium Level 8.3mg/dL (8.5-10.1) Medications Current Medications Oxycodone/ Acetaminophen (Percocet 5/325) 1 tab 1X ONCE PO ; Start 09/09/16 at 19:00; Stop 09/09/16 at 19:01; Status DC Hydromorphone HCl 1 mg 1 mg 1X ONCE IV Last administered on 09/09/16 19:21; Start 09/09/16 at 19:15; Stop 09/09/16 at 19:16; Status DC Pantoprazole Sodium/Sodium Chloride (Protonix Iv/Iv Sodium Chloride 0.9% 100ml) 100 ml @ 10 mls/hr 1X ONCE IV Last administered on 09/09/16 19:51; Start at 19:30; Stop 09/10/16 at 05:29; Status DC Ondansetron HCl 4 mg 4 mg PRN Q8HRS PRN IV NAUSEA/VOMITING Last administered on 09/09/16 19:51; Start 09/09/16 at 19:30; Stop 09/10/16 at 19:29; Status DC Sodium Chloride (Iv Sodium Chloride 0.9% 1000ml Bag) 1,000 ml @ 100 mls/hr Q10H IV Last administered on 09/09/16 19:51; Start 09/09/16 at 19:30; Stop at 06:00; Status DC Acetaminophen (Tylenol) 650 mg PRN Q4HRS PRN PO FEVER Last administered on 09/09 19:52; Start 09/09/16 at 19:30; Stop 09/10/16 at 19:29; Status DC Multi-Ingredient Mouthwash/Gargle 15 ml 15 ml 1X ONCE SWSW Last administered on 09/09/16 23:41; Start 09/09/16 at 23:30; Stop 09/09/16 at 23:31; Status DC Phytonadione/ Sodium Chloride (Vitamin K/Iv Sodium Chloride 0.9% 50ml) 51 ml @ 102 mls/hr 1X ONCE IV Last administered on 09/10/16 02:07; Start 09/10/16 at 00:00; Stop 09/10/16 at 00:29; Status DC Acetaminophen (Tylenol) 325 mg PRN Q4HRS PO ; Start 09/09/16 at 23:30; Stop at 23:30; Status DC Allopurinol (Zyloprim) 100 mg DAILY PO Last administered on 09/22/16 08:53; Start 09/10/16 at 09:00 Bisacodyl (Dulcolax Supp) 10 mg PRN DAILY PRN RC CONSTIPATION; Start 09/09/16 at 23:30 Cyclobenzaprine HCl (Flexeril) 10 mg PRN TID PRN PO back pain Last administered on 09/21/16 15:14; Start 09/09/16 at 23:30 Gabapentin (Neurontin) 300 mg DAILY PO Last administered on 09/22/16 08:52; Start 09/10/16 at 09:00 Ipratropium [place] (Atrovent) 0.2 mg QID NEB ; Start 09/10/16 at 09:00; Status UNV Lidocaine (Lidoderm) 1 patch DAILY TP Last administered on 09/22/16 08:54; Start 09/10/16 at 09:00 Nortriptyline HCl (Pamelor) 25 mg QHS PO Last administered on 09/22/16 20:32; Start 09/10/16 at 21:00 Oxycodone HCl (Oxycontin) 10 mg BID PO Last administered on 09/22/16 20:33; Start 09/10/16 at 09:00 Oxycodone/ Acetaminophen (Percocet 10/325) 1 tab PRN Q4HRS PRN PO SEVERE PAIN Last administered on 09/23/16 06:42; Start 09/09/16 at 23:30 Non-Formulary Medication 2 puff Q4HRS INH FOR ASTHMA; Start 09/10/16 at 00:00; Status UNV Carvedilol (Coreg) 25 mg BIDWMEALS PO Last administered on 09/22/16 17:28; Start 09/10/16 at 08:00 Non-Formulary Medication 1 puff BID IH ; Start 09/10/16 at 09:00; Status UNV Ondansetron HCl (Zofran Odt) 8 mg Q8HRS PO Last administered on 09/21/16 05:53 ; Start 09/10/16 at 06:00 Sertraline HCl (Zoloft) 100 mg DAILY PO Last administered on 09/22/16 08:53; Start 09/10/16 at 09:00 Labetalol HCl (Normodyne) 20 mg PRN Q2HR PRN IVP HYPERTENSION, SEE COMMENTS Last administered on 09/13/16 00:17; Start 09/09/16 at 23:30 Albuterol/ Ipratropium (Duoneb) 3 ml RTQID NEB Last administered on 09/23/16 07 :44; Start 09/10/16 at 08:00 Budesonide (Pulmicort) 0.5 mg RTBID NEB Last administered on 09/23/16 07:44; Start 09/10/16 at 08:00 Albuterol Sulfate 2.5 mg 2.5 mg PRN Q4HRS PRN NEB SHORTNESS OF BREATH; Start at 23:30 Pantoprazole Sodium 80 mg/ Sodium Chloride 100 ml @ 10 mls/hr Q10H IV Last administered on 09/13/16 07:51; Start 09/10/16 at 10:00; Stop 09/13/16 at 09:59 ; Status DC Magnesium Sulfate/ Dextrose 50 ml @ 25 mls/hr PRN DAILY PRN IV for Mag < 1.7 on am labs; Start 09/10/16 at 10:00; Stop 09/22/16 at 11:36; Status DC Sodium Chloride (Iv Sodium Chloride 0.9% 1000ml Bag) 1,000 ml @ 1,000 mls/hr Q1H PRN IV hypotension; Start 09/11/16 at 08:50; Stop 09/11/16 at 14:49; Status DC Diphenhydramine HCl (Benadryl) 25 mg 1X PRN PRN IV ITCHING; Start 09/11/16 at 09:00; Stop 09/12/16 at 08:59; Status DC Diphenhydramine HCl (Benadryl) 25 mg 1X PRN PRN IV ITCHING; Start 09/11/16 at 09:00; Stop 09/12/16 at 08:59; Status DC Sodium Chloride (Normal Saline Flush) 10 ml 1X PRN PRN IV AP catheter pack; Start 09/11/16 at 09:00; Stop 09/12/16 at 08:59; Status DC Sodium Chloride (Normal Saline Flush) 10 ml 1X PRN PRN IV DIGITAL CONTENT MANAGER catheter pack; Start 09/11/16 at 09:00; Stop 09/12/16 at 08:59; Status DC Labetalol HCl 10 mg 10 mg PRN Q1HR PRN IVP SBP > 180; Start 09/11/16 at 09:00; Stop 09/12/16 at 08:59; Status DC Sodium Chloride (Iv Sodium Chloride 0.9% 1000ml Bag) 1,000 ml @ 400 mls/hr Q2H30M PRN IV PATENCY; Start 09/11/16 at 08:50; Stop 09/11/16 at 20:49; Status DC Info (PHARMACY MONITORING -- do not chart) 1 each PRN DAILY PRN MC SEE COMMENTS ; Start 09/11/16 at 09:00 Info (PHARMACY MONITORING -- do not chart) 1 each PRN DAILY PRN MC SEE COMMENTS ; Start 09/11/16 at 09:00; Status UNV Sodium Cl/Sod Bicarb/Potass Cl/ PEG (Golytely) 4,000 ml 1X ONCE PO Last administered on 09/11/16t 17:13; Start 09/11/16 at 13:00; Stop 09/11/16 at 13:01 ; Status DC Fentanyl Citrate (Fentanyl 2ml Vial) 25 mcg PRN Q5MIN PRN IV MILD PAIN; Start 09/12/16 at 07:00; Stop 09/13/16 at 06:59; Status DC Fentanyl Citrate 50 mcg 50 mcg PRN Q5MIN PRN IV MODERATE PAIN; Start 09/12/16 at 07:00; Stop 09/13/16 at 06:59; Status DC Lactated Ringer's (Iv Lactated Ringers) 1,000 ml @ 0 mls/hr Q0M IV ; Start at 07:00; Stop 09/12/16 at 18:59; Status DC Lidocaine HCl 2 ml 1X PRN PRN ID IV START; Start 09/12/16 at 07:00; Stop at 06:59; Status DC Prochlorperazine Edisylate (Compazine) 5 mg PACU PRN PRN IV NAUSEA; Start 09/12 at 07:00; Stop 09/13/16 at 06:59; Status DC Pantoprazole Sodium 40 mg 40 mg DAILYAC IVP ; Start 09/13/16 at 07:30; Status UNV Magnesium Sulfate/ Dextrose 50 ml @ 25 mls/hr 1X ONCE IV ; Start 09/12/16 at 11 :30; Stop 09/12/16 at 13:29; Status DC Propofol 0 ml @ As Directed STK-MED ONCE IV ; Start 09/12/16 at 12:55; Stop at 12:56; Status DC Propofol (Diprivan) 20 ml @ As Directed STK-MED ONCE IV ; Start 09/12/16 at 12: 55; Stop 09/12/16 at 12:56; Status Cancel Lidocaine HCl (Lidocaine Pf 2% Vial) 5 ml STK-MED ONCE .ROUTE ; Start 09/12/16 at 12:55; Stop 09/12/16 at 12:56; Status DC Lorazepam (Ativan) 2 mg PRN Q4HRS PRN IV ANXIETY / AGITATION; Start 09/12/16 at 14:15 Lorazepam (Ativan) 2 mg Q4HRS PRN IV ANXIETY / AGITATION; Start 09/12/16 at 14: 15; Status UNV Haloperidol Lactate (Haldol) 2.5 mg PRN Q6HRS PRN IM AGITATION; Start 09/12/16 at 14:15 Haloperidol Lactate (Haldol) 2.5 mg PRN Q6HRS PRN IVP AGITATION; Start at 14:15 Lorazepam 2 mg 2 mg PRN Q4HRS PRN IM ANXIETY / AGITATION; Start 09/12/16 at 14: 30; Stop 09/17/16 at 14:37; Status DC Sodium Chloride (Iv Sodium Chloride 0.9% 1000ml Bag) 1,000 ml @ 1,000 mls/hr Q1H PRN IV hypotension; Start 09/13/16 at 08:39; Stop 09/13/16 at 14:38; Status DC Diphenhydramine HCl (Benadryl) 25 mg 1X PRN PRN IV ITCHING; Start 09/13/16 at 08:45; Stop 09/14/16 at 08:44; Status DC Diphenhydramine HCl (Benadryl) 25 mg 1X PRN PRN IV ITCHING; Start 09/13/16 at 08:45; Stop 09/14/16 at 08:44; Status DC Sodium Chloride (Normal Saline Flush) 10 ml 1X PRN PRN IV AP catheter pack; Start 09/13/16 at 08:45; Stop 09/14/16 at 08:44; Status DC Sodium Chloride (Normal Saline Flush) 10 ml 1X PRN PRN IV DIGITAL CONTENT MANAGER catheter pack; Start 09/13/16 at 08:45; Stop 09/14/16 at 08:44; Status DC Labetalol HCl (Normodyne) 10 mg PRN Q1HR PRN IVP SBP > 180; Start 09/13/16 at 08:45; Stop 09/14/16 at 08:44; Status DC Info (PHARMACY MONITORING -- do not chart) 1 each PRN DAILY PRN MC SEE COMMENTS ; Start 09/13/16 at 08:45; Status UNV Info (PHARMACY MONITORING -- do not chart) 1 each PRN DAILY PRN MC SEE COMMENTS ; Start 09/13/16 at 08:45; Status UNV Pantoprazole Sodium 40 mg 40 mg DAILYAC IVP Last administered on 09/16/16t 05: 57; Start 09/13/16 at 13:00; Stop 09/17/16 at 10:02; Status DC Sodium Chloride (Iv Sodium Chloride 0.9% 1000ml Bag) 1,000 ml @ 1,000 mls/hr Q1H PRN IV hypotension; Start 09/16/16 at 08:46; Stop 09/16/16 at 14:45; Status DC Diphenhydramine HCl (Benadryl) 25 mg 1X PRN PRN IV ITCHING; Start 09/16/16 at 09:00; Stop 09/17/16 at 08:59; Status DC Diphenhydramine HCl (Benadryl) 25 mg 1X PRN PRN IV ITCHING; Start 09/16/16 at 09:00; Stop 09/17/16 at 08:59; Status DC Sodium Chloride (Normal Saline Flush) 10 ml 1X PRN PRN IV AP catheter pack; Start 09/16/16 at 09:00; Stop 09/17/16 at 08:59; Status DC Sodium Chloride (Normal Saline Flush) 10 ml 1X PRN PRN IV DIGITAL CONTENT MANAGER catheter pack; Start 09/16/16 at 09:00; Stop 09/17/16 at 08:59; Status DC Info (PHARMACY MONITORING -- do not chart) 1 each PRN DAILY PRN MC SEE COMMENTS ; Start 09/16/16 at 09:00; Status UNV Info (PHARMACY MONITORING -- do not chart) 1 each PRN DAILY PRN MC SEE COMMENTS ; Start 09/16/16 at 09:00; Status UNV Darbepoetin Ernst (Aranesp) 60 mcg WEEKLYHS SQ Last administered on 09/16/16 22 :28; Start 09/16/16 at 21:00 Pantoprazole Sodium (Protonix) 40 mg DAILYAC PO Last administered on 09/22/16 08:53; Start 09/17/16 at 10:02 Fentanyl Citrate (Fentanyl 2ml Vial) 25 mcg PRN Q5MIN PRN IV MILD PAIN; Start 09/18/16 at 07:00; Stop 09/19/16 at 06:59; Status DC Fentanyl Citrate 50 mcg 50 mcg PRN Q5MIN PRN IV MODERATE PAIN; Start 09/18/16 at 07:00; Stop 09/19/16 at 06:59; Status DC Lactated Ringer's (Iv Lactated Ringers) 1,000 ml @ 0 mls/hr Q0M IV ; Start 09/18 at 07:00; Stop 09/18/16 at 18:59; Status DC Lidocaine HCl 2 ml 1X PRN PRN ID IV START; Start 09/18/16 at 07:00; Stop at 06:59; Status DC Prochlorperazine Edisylate (Compazine) 5 mg PACU PRN PRN IV NAUSEA; Start at 07:00; Stop 09/19/16 at 06:59; Status DC Dextrose 25 gm 25 gm STK-MED ONCE IV Last administered on 09/18/16 08:19; Start 09/18/16 at 08:19; Stop 09/18/16 at 08:20; Status DC Propofol (Diprivan) 20 ml @ As Directed STK-MED ONCE IV ; Start 09/18/16 at 11:13 ; Stop 09/18/16 at 11:14; Status DC Lidocaine HCl 5 ml 5 ml STK-MED ONCE .ROUTE ; Start 09/18/16 at 11:13; Stop at 11:14; Status DC Sodium Chloride 1,000 ml @ 100 mls/hr 1X ONCE IV Last administered on 11:29; Start 09/18/16 at 11:30; Stop 09/18/16 at 21:29; Status DC Sodium Chloride (Iv Sodium Chloride 0.9% 1000ml Bag) 1,000 ml @ 1,000 mls/hr Q1H PRN IV hypotension; Start 09/18/16 at 13:47; Stop 09/18/16 at 19:46; Status DC Acetaminophen (Tylenol) 500 mg 1X PRN PRN PO MILD PAIN / TEMP; Start 09/18/16 at 14:00; Stop 09/19/16 at 13:59; Status DC Diphenhydramine HCl (Benadryl) 25 mg 1X PRN PRN IV ITCHING; Start 09/18/16 at 14 :00; Stop 09/19/16 at 13:59; Status DC Diphenhydramine HCl (Benadryl) 25 mg 1X PRN PRN IV ITCHING; Start 09/18/16 at 14 :00; Stop 09/19/16 at 13:59; Status DC Labetalol HCl 10 mg 10 mg PRN Q1HR PRN IVP SBP > 180; Start 09/18/16 at 14:00; Stop 09/19/16 at 13:59; Status DC Sodium Chloride (Iv Sodium Chloride 0.9% 1000ml Bag) 1,000 ml @ 400 mls/hr Q2H30M PRN IV PATENCY; Start 09/18/16 at 13:47; Stop 09/19/16 at 01:46; Status DC Info 1 each 1 each PRN DAILY PRN MC SEE COMMENTS; Start 09/18/16 at 14:00; Status UNV Sodium Chloride 1,000 ml @ 1,000 mls/hr Q1H PRN IV hypotension; Start 09/20/16 at 07:30; Stop 09/20/16 at 18:00; Status DC Albumin Human (Albuminar) 200 ml @ 200 mls/hr 1X PRN PRN IV Hypotension; Start 09/20/16 at 07:45; Stop 09/20/16 at 14:00; Status DC Acetaminophen (Tylenol) 500 mg 1X PRN PRN PO MILD PAIN / TEMP; Start 09/20/16 at 07:45; Stop 09/20/16 at 18:00; Status DC Diphenhydramine HCl (Benadryl) 25 mg 1X PRN PRN IV ITCHING; Start 09/20/16 at 07 :45; Stop 09/20/16 at 18:00; Status DC Diphenhydramine HCl (Benadryl) 25 mg 1X PRN PRN IV ITCHING; Start 09/20/16 at 07 :45; Stop 09/20/16 at 18:00; Status DC Sodium Chloride (Normal Saline Flush) 10 ml 1X PRN PRN IV AP catheter pack; Start 09/20/16 at 07:45; Stop 09/20/16 at 18:00; Status DC Sodium Chloride (Normal Saline Flush) 10 ml 1X PRN PRN IV DIGITAL CONTENT MANAGER catheter pack; Start 09/20/16 at 07:45; Stop 09/20/16 at 18:00; Status DC Labetalol HCl 10 mg 10 mg PRN Q1HR PRN IVP SBP > 180; Start 09/20/16 at 07:45; Stop 09/20/16 at 18:00; Status DC Sodium Chloride (Iv Sodium Chloride 0.9% 1000ml Bag) 1,000 ml @ 400 mls/hr Q2H30M PRN IV PATENCY; Start 09/20/16 at 07:45; Stop 09/20/16 at 18:00; Status DC Info (PHARMACY MONITORING -- do not chart) 1 each PRN DAILY PRN MC SEE COMMENTS ; Start 09/20/16 at 07:45; Status UNV Warfarin Sodium (Coumadin Per Pharmacy) 1 each PRN DAILY PRN MC SEE COMMENTS Last administered on 09/22/16 11:06; Start 09/20/16 at 14:30 Warfarin Sodium (Coumadin) 2 mg 1X WARF ONCE PO Last administered on 09/20/16 17:27; Start 09/20/16 at 17:14; Stop 09/20/16 at 17:15; Status DC Methylprednisolone Acetate (Depo-Medrol 80mg Vial) 80 mg 1X ONCE IM ; Start 09/20/16 at 17:30; Stop 09/20/16 at 17:33; Status DC Methylprednisolone Acetate (Depo-Medrol 40mg Vial) 40 mg 1X ONCE IM ; Start 09/20/16 at 17:30; Stop 09/20/16 at 17:33; Status DC Bupivacaine HCl (Sensorcaine-Mpf 0.25%) 10 ml 1X ONCE IJ ; Start 09/20/16 at 17: 30; Stop 09/20/16 at 17:33; Status DC Warfarin Sodium (Coumadin) 2 mg 1X WARF ONCE PO Last administered on 09/21/16 17:14; Start 09/21/16 at 16:00; Stop 09/21/16 at 16:01; Status DC Warfarin Sodium (Coumadin) 3 mg 1X WARF ONCE PO Last administered on 09/22/16t 17:28; Start 09/22/16 at 16:00; Stop 09/22/16 at 16:01; Status DC Active Scripts Active Reported [Mylanta] Tylenol (Acetaminophen) 325 Mg Tablet 1 Tab PO PRN Q4HRS Fleet Enema (Na Phos,M-B/Na Phos,Di-Ba) 133 Ml Enema 1 Each RC ONCE Dulcolax (Bisacodyl) 10 Mg Supp.rect 10 Mg RC PRN DAILY PRN Zofran Odt (Ondansetron) 8 Mg Tab.rapdis 1 Tab PO PRN Q8HRS PRN Nitrostat (Nitroglycerin) 0.4 Mg Tab.subl 1 Tab SL UD Cyclobenzaprine Hcl 10 Mg Tablet 1 Tab PO TID Zepatier 50-100 mg Tablet (Elbasvir/Grazoprevir) 1 Each Tablet 1 Each PO [PhosLo] Coreg (Carvedilol) 25 Mg Tablet 1 Tab PO BID Aspirin 81 Mg Tab.chew 1 Tab PO DAILY Allopurinol 100 Mg Tablet 1 Tab PO DAILY Ventolin Hfa Inhaler (Albuterol Sulfate) 18 Gm Hfa.aer.ad 2 Puff INH Q4HRS Nephplex Rx Tablet (Vit B Cmplx No3/Fa/C/Biot/Zinc) 1 Each Tablet 1 Each PO Senokot (Sennosides) 8.6 Mg Tablet 1 Tab PO BID Oxycontin (Oxycodone HCl) 10 Mg Tab.er.12h 10 Mg PO BID Glycolax (Polyethylene Glycol 3350) 119 Gm Powder 17 Gm PO UD Percocet 10-325 Mg Tablet (Oxycodone/Acetaminophen) 1 Each Tablet 1 Tab PO Q4- 6HRS Vitamin D3 (Cholecalciferol (Vitamin D3)) 1,000 Unit Tablet 1 Tab PO DAILY Advair 250-50 Diskus (Fluticasone/Salmeterol) 1 Each Disk.w.dev 1 Puff IH BID Ipratropium [place] 0.2 Mg/1 Ml Solution 1 Vial NEB QID Lidoderm (Lidocaine) 700 Mg Adh..patch 1 Patch TP DAILY Nortriptyline Hcl 25 Mg Capsule 1 Cap PO QHS Ciprofloxacin Hcl 250 Mg Tablet 1 Tab PO BID Warfarin Sodium 2 Mg Tablet 1.5 Mg PO DAILY Gabapentin 300 Mg Capsule 300 Mg PO TID Zoloft (Sertraline Hcl) 100 Mg Tablet 1 Tab PO DAILY Vitals/I & O Vital Sign - Last 24 Hours 09/22/16 09/22/16 09/22/16 09/22/16 11:00 11:14 15:00 15:52 Temp 98.1 98.3 98.1 98.3 Pulse 84 81 Resp 18 18 B/P 155/76 136/75 Pulse Ox 96 97 97 O2 Delivery Room Air Room Air Room Air Room Air 09/22/16 09/22/16 09/22/16 09/22/16 16:03 17:28 19:00 19:29 Temp 97.6 97.6 Pulse 81 76 Resp 20 20 B/P 136/75 137/82 Pulse Ox 93 93 97 O2 Delivery Room Air Room Air Room Air 09/22/16 09/22/16 09/22/16 09/22/16 19:30 20:33 20:33 21:45 Resp 18 17 16 Pulse Ox 97 97 97 97 O2 Delivery Room Air Room Air Room Air Room Air 09/22/16 09/23/16 09/23/16 09/23/16 23:00 00:45 03:00 06:42 Temp 98.1 98.0 98.1 98.0 Pulse 81 79 Resp 20 17 20 16 B/P 130/71 152/83 Pulse Ox 93 97 95 95 O2 Delivery Room Air Room Air Room Air Room Air 09/23/16 09/23/16 07:45 07:52 Temp 97.9 97.9 Pulse 83 Resp 18 B/P 148/77 Pulse Ox 99 99 O2 Delivery Room Air Room Air Intake and Output 09/22/16 09/22/16 09/23/16 15:00 23:00 07:00 Intake Total 1250 ml Output Total 50 ml 0 ml Balance 1200 ml 0 ml MELITA HEIN MD Sep 23, 2016 09:00
--- NOTE | 2016-09-23 09:39 | PDOC ---
PROGRESS NOTES Subjective Subjective No new complaints. Objective Objective Vital Signs Date Time Temp Pulse Resp B/P Pulse Ox O2 Delivery O2 Flow Rate FiO2 09/23/16 08:58 83 148/77 09/23/16 08:58 Room Air 09/23/16 07:52 97.9 18 99 97.9 09/22/16 08:00 2.0 Intake and Output 09/23/16 07:00 Intake Total 1250 ml Output Total 50 ml Balance 1200 ml Intake Oral 1250 ml Output Urine Total 50 ml # Voids 1 Physical Exam Physical Exam She is alert,comfortable supine in bed and she continues with weakness of right rotaotr cuff muscles and painfully limited lumbar spine ROM and she requires maximal help with mobility but working with therapy. Assessment Assessment Problems Medical Problems: (1) Anemia Status: Acute (2) Coagulopathy Status: Acute (3) Coumadin toxicity Status: Acute (4) Elevated INR (international normalized ratio) due to prior anticoagulant medication ingestion Status: Acute (5) ESRD on dialysis Status: Acute (6) GI bleed Status: Acute Plan Plan of Care To ask for neurosurgical advise about questionable diskitis or osteomyelitis of L2-L3 lumbar area. Comment Review of Relevant I have reviewed the following items christi (where applicable) has been applied. Labs Laboratory Tests Test 09/21/16 11:00 09/22/16 05:15 09/23/16 04:05 09/23/16 04:50 Prothrombin Time 17.1SEC (11.7-14.0) 16.5SEC (11.7-14.0) 16.5SEC (11.7-14.0) Prothromb Time International Ratio 1.5 (0.8-1.1) 1.4 (0.8-1.1) 1.4 (0.8-1.1) White Blood Count 8.7x10^3/uL (4.0-11.0) Red Blood Count 2.65x10^6/uL (3.50-5.40) Hemoglobin 7.3g/dL (12.0-15.5) Hematocrit 22.7% (36.0-47.0) Mean Corpuscular Volume 85fL (79-100) Mean Corpuscular Hemoglobin 27pg (25-35) Mean Corpuscular Hemoglobin Concent 32g/dL (31-37) Red Cell Distribution Width 16.8% (11.5-14.5) Platelet Count 254x10^3/uL (140-400) Sodium Level 133mmol/L (136-145) Potassium Level 5.0mmol/L (3.5-5.1) Chloride Level 100mmol/L (98-107) Carbon Dioxide Level 27mmol/L (21-32) Anion Gap 6 (6-14) Blood Urea Nitrogen 37mg/dL (7-20) Creatinine 4.0mg/dL (0.6-1.0) Estimated GFR (Cockcroft-Gault) 13.8 Glucose Level 96mg/dL (70-99) Calcium Level 8.3mg/dL (8.5-10.1) Laboratory Tests Test 09/23/16 04:05 09/23/16 04:50 White Blood Count 8.7x10^3/uL (4.0-11.0) Red Blood Count 2.65x10^6/uL (3.50-5.40) Hemoglobin 7.3g/dL (12.0-15.5) Hematocrit 22.7% (36.0-47.0) Mean Corpuscular Volume 85fL (79-100) Mean Corpuscular Hemoglobin 27pg (25-35) Mean Corpuscular Hemoglobin Concent 32g/dL (31-37) Red Cell Distribution Width 16.8% (11.5-14.5) Platelet Count 254x10^3/uL (140-400) Prothrombin Time 16.5SEC (11.7-14.0) Prothromb Time International Ratio 1.4 (0.8-1.1) Sodium Level 133mmol/L (136-145) Potassium Level 5.0mmol/L (3.5-5.1) Chloride Level 100mmol/L (98-107) Carbon Dioxide Level 27mmol/L (21-32) Anion Gap 6 (6-14) Blood Urea Nitrogen 37mg/dL (7-20) Creatinine 4.0mg/dL (0.6-1.0) Estimated GFR (Cockcroft-Gault) 13.8 Glucose Level 96mg/dL (70-99) Calcium Level 8.3mg/dL (8.5-10.1) Medications Current Medications Oxycodone/ Acetaminophen (Percocet 5/325) 1 tab 1X ONCE PO ; Start 09/09/16 at 19:00; Stop 09/09/16 at 19:01; Status DC Hydromorphone HCl 1 mg 1 mg 1X ONCE IV Last administered on 09/09/16 19:21; Start 09/09/16 at 19:15; Stop 09/09/16 at 19:16; Status DC Pantoprazole Sodium/Sodium Chloride (Protonix Iv/Iv Sodium Chloride 0.9% 100ml) 100 ml @ 10 mls/hr 1X ONCE IV Last administered on 09/09/16 19:51; Start at 19:30; Stop 09/10/16 at 05:29; Status DC Ondansetron HCl 4 mg 4 mg PRN Q8HRS PRN IV NAUSEA/VOMITING Last administered on 09/09/16 19:51; Start 09/09/16 at 19:30; Stop 09/10/16 at 19:29; Status DC Sodium Chloride (Iv Sodium Chloride 0.9% 1000ml Bag) 1,000 ml @ 100 mls/hr Q10H IV Last administered on 09/09/16 19:51; Start 09/09/16 at 19:30; Stop at 06:00; Status DC Acetaminophen (Tylenol) 650 mg PRN Q4HRS PRN PO FEVER Last administered on 09/09 19:52; Start 09/09/16 at 19:30; Stop 09/10/16 at 19:29; Status DC Multi-Ingredient Mouthwash/Gargle 15 ml 15 ml 1X ONCE SWSW Last administered on 09/09/16 23:41; Start 09/09/16 at 23:30; Stop 09/09/16 at 23:31; Status DC Phytonadione/ Sodium Chloride (Vitamin K/Iv Sodium Chloride 0.9% 50ml) 51 ml @ 102 mls/hr 1X ONCE IV Last administered on 09/10/16 02:07; Start 09/10/16 at 00:00; Stop 09/10/16 at 00:29; Status DC Acetaminophen (Tylenol) 325 mg PRN Q4HRS PO ; Start 09/09/16 at 23:30; Stop at 23:30; Status DC Allopurinol (Zyloprim) 100 mg DAILY PO Last administered on 09/23/16 08:58; Start 09/10/16 at 09:00 Bisacodyl (Dulcolax Supp) 10 mg PRN DAILY PRN RC CONSTIPATION; Start 09/09/16 at 23:30 Cyclobenzaprine HCl (Flexeril) 10 mg PRN TID PRN PO back pain Last administered on 09/21/16 15:14; Start 09/09/16 at 23:30 Gabapentin (Neurontin) 300 mg DAILY PO Last administered on 09/23/16 08:58; Start 09/10/16 at 09:00 Ipratropium [place] (Atrovent) 0.2 mg QID NEB ; Start 09/10/16 at 09:00; Status UNV Lidocaine (Lidoderm) 1 patch DAILY TP Last administered on 09/23/16 08:57; Start 09/10/16 at 09:00 Nortriptyline HCl (Pamelor) 25 mg QHS PO Last administered on 09/22/16 20:32; Start 09/10/16 at 21:00 Oxycodone HCl (Oxycontin) 10 mg BID PO Last administered on 09/23/16 08:58; Start 09/10/16 at 09:00 Oxycodone/ Acetaminophen (Percocet 10/325) 1 tab PRN Q4HRS PRN PO SEVERE PAIN Last administered on 09/23/16 06:42; Start 09/09/16 at 23:30 Non-Formulary Medication 2 puff Q4HRS INH FOR ASTHMA; Start 09/10/16 at 00:00; Status UNV Carvedilol (Coreg) 25 mg BIDWMEALS PO Last administered on 09/23/16 08:58; Start 09/10/16 at 08:00 Non-Formulary Medication 1 puff BID IH ; Start 09/10/16 at 09:00; Status UNV Ondansetron HCl (Zofran Odt) 8 mg Q8HRS PO Last administered on 09/21/16 05:53 ; Start 09/10/16 at 06:00 Sertraline HCl (Zoloft) 100 mg DAILY PO Last administered on 09/23/16 08:57; Start 09/10/16 at 09:00 Labetalol HCl (Normodyne) 20 mg PRN Q2HR PRN IVP HYPERTENSION, SEE COMMENTS Last administered on 09/13/16 00:17; Start 09/09/16 at 23:30 Albuterol/ Ipratropium (Duoneb) 3 ml RTQID NEB Last administered on 09/23/16 07 :44; Start 09/10/16 at 08:00 Budesonide (Pulmicort) 0.5 mg RTBID NEB Last administered on 09/23/16 07:44; Start 09/10/16 at 08:00 Albuterol Sulfate 2.5 mg 2.5 mg PRN Q4HRS PRN NEB SHORTNESS OF BREATH; Start at 23:30 Pantoprazole Sodium 80 mg/ Sodium Chloride 100 ml @ 10 mls/hr Q10H IV Last administered on 09/13/16 07:51; Start 09/10/16 at 10:00; Stop 09/13/16 at 09:59 ; Status DC Magnesium Sulfate/ Dextrose 50 ml @ 25 mls/hr PRN DAILY PRN IV for Mag < 1.7 on am labs; Start 09/10/16 at 10:00; Stop 09/22/16 at 11:36; Status DC Sodium Chloride (Iv Sodium Chloride 0.9% 1000ml Bag) 1,000 ml @ 1,000 mls/hr Q1H PRN IV hypotension; Start 09/11/16 at 08:50; Stop 09/11/16 at 14:49; Status DC Diphenhydramine HCl (Benadryl) 25 mg 1X PRN PRN IV ITCHING; Start 09/11/16 at 09:00; Stop 09/12/16 at 08:59; Status DC Diphenhydramine HCl (Benadryl) 25 mg 1X PRN PRN IV ITCHING; Start 09/11/16 at 09:00; Stop 09/12/16 at 08:59; Status DC Sodium Chloride (Normal Saline Flush) 10 ml 1X PRN PRN IV AP catheter pack; Start 09/11/16 at 09:00; Stop 09/12/16 at 08:59; Status DC Sodium Chloride (Normal Saline Flush) 10 ml 1X PRN PRN IV [employer] catheter pack; Start 09/11/16 at 09:00; Stop 09/12/16 at 08:59; Status DC Labetalol HCl 10 mg 10 mg PRN Q1HR PRN IVP SBP > 180; Start 09/11/16 at 09:00; Stop 09/12/16 at 08:59; Status DC Sodium Chloride (Iv Sodium Chloride 0.9% 1000ml Bag) 1,000 ml @ 400 mls/hr Q2H30M PRN IV PATENCY; Start 09/11/16 at 08:50; Stop 09/11/16 at 20:49; Status DC Info (PHARMACY MONITORING -- do not chart) 1 each PRN DAILY PRN MC SEE COMMENTS ; Start 09/11/16 at 09:00 Info (PHARMACY MONITORING -- do not chart) 1 each PRN DAILY PRN MC SEE COMMENTS ; Start 09/11/16 at 09:00; Status UNV Sodium Cl/Sod Bicarb/Potass Cl/ PEG (Golytely) 4,000 ml 1X ONCE PO Last administered on 09/11/16t 17:13; Start 09/11/16 at 13:00; Stop 09/11/16 at 13:01 ; Status DC Fentanyl Citrate (Fentanyl 2ml Vial) 25 mcg PRN Q5MIN PRN IV MILD PAIN; Start 09/12/16 at 07:00; Stop 09/13/16 at 06:59; Status DC Fentanyl Citrate 50 mcg 50 mcg PRN Q5MIN PRN IV MODERATE PAIN; Start 09/12/16 at 07:00; Stop 09/13/16 at 06:59; Status DC Lactated Ringer's (Iv Lactated Ringers) 1,000 ml @ 0 mls/hr Q0M IV ; Start at 07:00; Stop 09/12/16 at 18:59; Status DC Lidocaine HCl 2 ml 1X PRN PRN ID IV START; Start 09/12/16 at 07:00; Stop at 06:59; Status DC Prochlorperazine Edisylate (Compazine) 5 mg PACU PRN PRN IV NAUSEA; Start 09/12 at 07:00; Stop 09/13/16 at 06:59; Status DC Pantoprazole Sodium 40 mg 40 mg DAILYAC IVP ; Start 09/13/16 at 07:30; Status UNV Magnesium Sulfate/ Dextrose 50 ml @ 25 mls/hr 1X ONCE IV ; Start 09/12/16 at 11 :30; Stop 09/12/16 at 13:29; Status DC Propofol 0 ml @ As Directed STK-MED ONCE IV ; Start 09/12/16 at 12:55; Stop at 12:56; Status DC Propofol (Diprivan) 20 ml @ As Directed STK-MED ONCE IV ; Start 09/12/16 at 12: 55; Stop 09/12/16 at 12:56; Status Cancel Lidocaine HCl (Lidocaine Pf 2% Vial) 5 ml STK-MED ONCE .ROUTE ; Start 09/12/16 at 12:55; Stop 09/12/16 at 12:56; Status DC Lorazepam (Ativan) 2 mg PRN Q4HRS PRN IV ANXIETY / AGITATION; Start 09/12/16 at 14:15 Lorazepam (Ativan) 2 mg Q4HRS PRN IV ANXIETY / AGITATION; Start 09/12/16 at 14: 15; Status UNV Haloperidol Lactate (Haldol) 2.5 mg PRN Q6HRS PRN IM AGITATION; Start 09/12/16 at 14:15 Haloperidol Lactate (Haldol) 2.5 mg PRN Q6HRS PRN IVP AGITATION; Start at 14:15 Lorazepam 2 mg 2 mg PRN Q4HRS PRN IM ANXIETY / AGITATION; Start 09/12/16 at 14: 30; Stop 09/17/16 at 14:37; Status DC Sodium Chloride (Iv Sodium Chloride 0.9% 1000ml Bag) 1,000 ml @ 1,000 mls/hr Q1H PRN IV hypotension; Start 09/13/16 at 08:39; Stop 09/13/16 at 14:38; Status DC Diphenhydramine HCl (Benadryl) 25 mg 1X PRN PRN IV ITCHING; Start 09/13/16 at 08:45; Stop 09/14/16 at 08:44; Status DC Diphenhydramine HCl (Benadryl) 25 mg 1X PRN PRN IV ITCHING; Start 09/13/16 at 08:45; Stop 09/14/16 at 08:44; Status DC Sodium Chloride (Normal Saline Flush) 10 ml 1X PRN PRN IV AP catheter pack; Start 09/13/16 at 08:45; Stop 09/14/16 at 08:44; Status DC Sodium Chloride (Normal Saline Flush) 10 ml 1X PRN PRN IV [employer] catheter pack; Start 09/13/16 at 08:45; Stop 09/14/16 at 08:44; Status DC Labetalol HCl (Normodyne) 10 mg PRN Q1HR PRN IVP SBP > 180; Start 09/13/16 at 08:45; Stop 09/14/16 at 08:44; Status DC Info (PHARMACY MONITORING -- do not chart) 1 each PRN DAILY PRN MC SEE COMMENTS ; Start 09/13/16 at 08:45; Status UNV Info (PHARMACY MONITORING -- do not chart) 1 each PRN DAILY PRN MC SEE COMMENTS ; Start 09/13/16 at 08:45; Status UNV Pantoprazole Sodium 40 mg 40 mg DAILYAC IVP Last administered on 09/16/16t 05: 57; Start 09/13/16 at 13:00; Stop 09/17/16 at 10:02; Status DC Sodium Chloride (Iv Sodium Chloride 0.9% 1000ml Bag) 1,000 ml @ 1,000 mls/hr Q1H PRN IV hypotension; Start 09/16/16 at 08:46; Stop 09/16/16 at 14:45; Status DC Diphenhydramine HCl (Benadryl) 25 mg 1X PRN PRN IV ITCHING; Start 09/16/16 at 09:00; Stop 09/17/16 at 08:59; Status DC Diphenhydramine HCl (Benadryl) 25 mg 1X PRN PRN IV ITCHING; Start 09/16/16 at 09:00; Stop 09/17/16 at 08:59; Status DC Sodium Chloride (Normal Saline Flush) 10 ml 1X PRN PRN IV AP catheter pack; Start 09/16/16 at 09:00; Stop 09/17/16 at 08:59; Status DC Sodium Chloride (Normal Saline Flush) 10 ml 1X PRN PRN IV [employer] catheter pack; Start 09/16/16 at 09:00; Stop 09/17/16 at 08:59; Status DC Info (PHARMACY MONITORING -- do not chart) 1 each PRN DAILY PRN MC SEE COMMENTS ; Start 09/16/16 at 09:00; Status UNV Info (PHARMACY MONITORING -- do not chart) 1 each PRN DAILY PRN MC SEE COMMENTS ; Start 09/16/16 at 09:00; Status UNV Darbepoetin Ernst (Aranesp) 60 mcg WEEKLYHS SQ Last administered on 09/16/16 22 :28; Start 09/16/16 at 21:00 Pantoprazole Sodium (Protonix) 40 mg DAILYAC PO Last administered on 09/23/16 08:58; Start 09/17/16 at 10:02 Fentanyl Citrate (Fentanyl 2ml Vial) 25 mcg PRN Q5MIN PRN IV MILD PAIN; Start 09/18/16 at 07:00; Stop 09/19/16 at 06:59; Status DC Fentanyl Citrate 50 mcg 50 mcg PRN Q5MIN PRN IV MODERATE PAIN; Start 09/18/16 at 07:00; Stop 09/19/16 at 06:59; Status DC Lactated Ringer's (Iv Lactated Ringers) 1,000 ml @ 0 mls/hr Q0M IV ; Start 09/18 at 07:00; Stop 09/18/16 at 18:59; Status DC Lidocaine HCl 2 ml 1X PRN PRN ID IV START; Start 09/18/16 at 07:00; Stop at 06:59; Status DC Prochlorperazine Edisylate (Compazine) 5 mg PACU PRN PRN IV NAUSEA; Start at 07:00; Stop 09/19/16 at 06:59; Status DC Dextrose 25 gm 25 gm STK-MED ONCE IV Last administered on 09/18/16 08:19; Start 09/18/16 at 08:19; Stop 09/18/16 at 08:20; Status DC Propofol (Diprivan) 20 ml @ As Directed STK-MED ONCE IV ; Start 09/18/16 at 11:13 ; Stop 09/18/16 at 11:14; Status DC Lidocaine HCl 5 ml 5 ml STK-MED ONCE .ROUTE ; Start 09/18/16 at 11:13; Stop at 11:14; Status DC Sodium Chloride 1,000 ml @ 100 mls/hr 1X ONCE IV Last administered on 11:29; Start 09/18/16 at 11:30; Stop 09/18/16 at 21:29; Status DC Sodium Chloride (Iv Sodium Chloride 0.9% 1000ml Bag) 1,000 ml @ 1,000 mls/hr Q1H PRN IV hypotension; Start 09/18/16 at 13:47; Stop 09/18/16 at 19:46; Status DC Acetaminophen (Tylenol) 500 mg 1X PRN PRN PO MILD PAIN / TEMP; Start 09/18/16 at 14:00; Stop 09/19/16 at 13:59; Status DC Diphenhydramine HCl (Benadryl) 25 mg 1X PRN PRN IV ITCHING; Start 09/18/16 at 14 :00; Stop 09/19/16 at 13:59; Status DC Diphenhydramine HCl (Benadryl) 25 mg 1X PRN PRN IV ITCHING; Start 09/18/16 at 14 :00; Stop 09/19/16 at 13:59; Status DC Labetalol HCl 10 mg 10 mg PRN Q1HR PRN IVP SBP > 180; Start 09/18/16 at 14:00; Stop 09/19/16 at 13:59; Status DC Sodium Chloride (Iv Sodium Chloride 0.9% 1000ml Bag) 1,000 ml @ 400 mls/hr Q2H30M PRN IV PATENCY; Start 09/18/16 at 13:47; Stop 09/19/16 at 01:46; Status DC Info 1 each 1 each PRN DAILY PRN MC SEE COMMENTS; Start 09/18/16 at 14:00; Status UNV Sodium Chloride 1,000 ml @ 1,000 mls/hr Q1H PRN IV hypotension; Start 09/20/16 at 07:30; Stop 09/20/16 at 18:00; Status DC Albumin Human (Albuminar) 200 ml @ 200 mls/hr 1X PRN PRN IV Hypotension; Start 09/20/16 at 07:45; Stop 09/20/16 at 14:00; Status DC Acetaminophen (Tylenol) 500 mg 1X PRN PRN PO MILD PAIN / TEMP; Start 09/20/16 at 07:45; Stop 09/20/16 at 18:00; Status DC Diphenhydramine HCl (Benadryl) 25 mg 1X PRN PRN IV ITCHING; Start 09/20/16 at 07 :45; Stop 09/20/16 at 18:00; Status DC Diphenhydramine HCl (Benadryl) 25 mg 1X PRN PRN IV ITCHING; Start 09/20/16 at 07 :45; Stop 09/20/16 at 18:00; Status DC Sodium Chloride (Normal Saline Flush) 10 ml 1X PRN PRN IV AP catheter pack; Start 09/20/16 at 07:45; Stop 09/20/16 at 18:00; Status DC Sodium Chloride (Normal Saline Flush) 10 ml 1X PRN PRN IV [employer] catheter pack; Start 09/20/16 at 07:45; Stop 09/20/16 at 18:00; Status DC Labetalol HCl 10 mg 10 mg PRN Q1HR PRN IVP SBP > 180; Start 09/20/16 at 07:45; Stop 09/20/16 at 18:00; Status DC Sodium Chloride (Iv Sodium Chloride 0.9% 1000ml Bag) 1,000 ml @ 400 mls/hr Q2H30M PRN IV PATENCY; Start 09/20/16 at 07:45; Stop 09/20/16 at 18:00; Status DC Info (PHARMACY MONITORING -- do not chart) 1 each PRN DAILY PRN MC SEE COMMENTS ; Start 09/20/16 at 07:45; Status UNV Warfarin Sodium (Coumadin Per Pharmacy) 1 each PRN DAILY PRN MC SEE COMMENTS Last administered on 09/22/16 11:06; Start 09/20/16 at 14:30 Warfarin Sodium (Coumadin) 2 mg 1X WARF ONCE PO Last administered on 09/20/16 17:27; Start 09/20/16 at 17:14; Stop 09/20/16 at 17:15; Status DC Methylprednisolone Acetate (Depo-Medrol 80mg Vial) 80 mg 1X ONCE IM ; Start 09/20/16 at 17:30; Stop 09/20/16 at 17:33; Status DC Methylprednisolone Acetate (Depo-Medrol 40mg Vial) 40 mg 1X ONCE IM ; Start 09/20/16 at 17:30; Stop 09/20/16 at 17:33; Status DC Bupivacaine HCl (Sensorcaine-Mpf 0.25%) 10 ml 1X ONCE IJ ; Start 09/20/16 at 17: 30; Stop 09/20/16 at 17:33; Status DC Warfarin Sodium (Coumadin) 2 mg 1X WARF ONCE PO Last administered on 09/21/16 17:14; Start 09/21/16 at 16:00; Stop 09/21/16 at 16:01; Status DC Warfarin Sodium (Coumadin) 3 mg 1X WARF ONCE PO Last administered on 09/22/16 17:28; Start 09/22/16 at 16:00; Stop 09/22/16 at 16:01; Status DC Active Scripts Active Reported [Mylanta] Tylenol (Acetaminophen) 325 Mg Tablet 1 Tab PO PRN Q4HRS Fleet Enema (Na Phos,M-B/Na Phos,Di-Ba) 133 Ml Enema 1 Each RC ONCE Dulcolax (Bisacodyl) 10 Mg Supp.rect 10 Mg RC PRN DAILY PRN Zofran Odt (Ondansetron) 8 Mg Tab.rapdis 1 Tab PO PRN Q8HRS PRN Nitrostat (Nitroglycerin) 0.4 Mg Tab.subl 1 Tab SL UD Cyclobenzaprine Hcl 10 Mg Tablet 1 Tab PO TID Zepatier 50-100 mg Tablet (Elbasvir/Grazoprevir) 1 Each Tablet 1 Each PO [PhosLo] Coreg (Carvedilol) 25 Mg Tablet 1 Tab PO BID Aspirin 81 Mg Tab.chew 1 Tab PO DAILY Allopurinol 100 Mg Tablet 1 Tab PO DAILY Ventolin Hfa Inhaler (Albuterol Sulfate) 18 Gm Hfa.aer.ad 2 Puff INH Q4HRS Nephplex Rx Tablet (Vit B Cmplx No3/Fa/C/Biot/Zinc) 1 Each Tablet 1 Each PO Senokot (Sennosides) 8.6 Mg Tablet 1 Tab PO BID Oxycontin (Oxycodone HCl) 10 Mg Tab.er.12h 10 Mg PO BID Glycolax (Polyethylene Glycol 3350) 119 Gm Powder 17 Gm PO UD Percocet 10-325 Mg Tablet (Oxycodone/Acetaminophen) 1 Each Tablet 1 Tab PO Q4- 6HRS Vitamin D3 (Cholecalciferol (Vitamin D3)) 1,000 Unit Tablet 1 Tab PO DAILY Advair 250-50 Diskus (Fluticasone/Salmeterol) 1 Each Disk.w.dev 1 Puff IH BID Ipratropium [place] 0.2 Mg/1 Ml Solution 1 Vial NEB QID Lidoderm (Lidocaine) 700 Mg Adh..patch 1 Patch TP DAILY Nortriptyline Hcl 25 Mg Capsule 1 Cap PO QHS Ciprofloxacin Hcl 250 Mg Tablet 1 Tab PO BID Warfarin Sodium 2 Mg Tablet 1.5 Mg PO DAILY Gabapentin 300 Mg Capsule 300 Mg PO TID Zoloft (Sertraline Hcl) 100 Mg Tablet 1 Tab PO DAILY Vitals/I & O Vital Sign - Last 24 Hours 09/22/16 09/22/16 09/22/16 09/22/16 11:00 11:14 15:00 15:52 Temp 98.1 98.3 98.1 98.3 Pulse 84 81 Resp 18 18 B/P 155/76 136/75 Pulse Ox 96 97 97 O2 Delivery Room Air Room Air Room Air Room Air 09/22/16 09/22/16 09/22/16 09/22/16 16:03 17:28 19:00 19:29 Temp 97.6 97.6 Pulse 81 76 Resp 20 20 B/P 136/75 137/82 Pulse Ox 93 93 97 O2 Delivery Room Air Room Air Room Air 09/22/16 09/22/16 09/22/16 09/22/16 19:30 20:33 20:33 21:45 Resp 18 17 16 Pulse Ox 97 97 97 97 O2 Delivery Room Air Room Air Room Air Room Air 09/22/16 09/23/16 09/23/16 09/23/16 23:00 00:45 03:00 06:42 Temp 98.1 98.0 98.1 98.0 Pulse 81 79 Resp 20 17 20 16 B/P 130/71 152/83 Pulse Ox 93 97 95 95 O2 Delivery Room Air Room Air Room Air Room Air 09/23/16 09/23/16 09/23/16 09/23/16 07:45 07:52 08:58 08:58 Temp 97.9 97.9 Pulse 83 83 Resp 18 B/P 148/77 148/77 Pulse Ox 99 99 O2 Delivery Room Air Room Air Room Air Intake and Output 09/22/16 09/22/16 09/23/16 15:00 23:00 07:00 Intake Total 1250 ml Output Total 50 ml 0 ml Balance 1200 ml 0 ml CAROLANN PRUETT MD Sep 23, 2016 09:39
[2016-09-23 10:39] VITALS: BP 133/76
--- NOTE | 2016-09-23 11:37 | PDOC ---
Subjective: Subjective: No GI complaints. Denies bleeding. Objective: Objective: Per RN - DC likely held today for eval by Dr. Navarro. No GI concerns. Vital Signs: Vital Signs Date Time Temp Pulse Resp B/P Pulse Ox O2 Delivery O2 Flow Rate FiO2 09/23/16 10:39 98.1 80 20 133/76 95 Room Air 98.1 09/22/16 08:00 2.0 Labs: Laboratory Tests Test 09/23/16 04:05 09/23/16 04:50 White Blood Count 8.7x10^3/uL Red Blood Count 2.65x10^6/uL Hemoglobin 7.3g/dL Hematocrit 22.7% Mean Corpuscular Volume 85fL Mean Corpuscular Hemoglobin 27pg Mean Corpuscular Hemoglobin Concent 32g/dL Red Cell Distribution Width 16.8% Platelet Count 254x10^3/uL Erythrocyte Sedimentation Rate 92 Prothrombin Time 16.5SEC Prothromb Time International Ratio 1.4 Sodium Level 133mmol/L Potassium Level 5.0mmol/L Chloride Level 100mmol/L Carbon Dioxide Level 27mmol/L Anion Gap 6 Blood Urea Nitrogen 37mg/dL Creatinine 4.0mg/dL Estimated GFR (Cockcroft-Gault) 13.8 Glucose Level 96mg/dL Calcium Level 8.3mg/dL PE: GEN: NAD, laying flat in bed LUNGS: CTAB HEART: RRR ABD: S/ND/NT NEURO/PSYCH: A & O 3 A/P: Anemia -no further bleeding, Hgb floating in 7s, elevated BUN/Cr today - due for dialysis -EGD 09/18 w/ non-erosive gastritis, reports normal colonoscopy @[facility] last year - 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 Ng. JORGE YANG Sep 23, 2016 11:37
[2016-09-23] MEDS ORDERED: IV NORMAL SALINE 1000ML BAG 1,000 ML IV PRN (14:18)
[2016-09-23] MEDS ORDERED: DIALYSIS PATIENT. MC PRN ×2 (14:30)
[2016-09-23] MEDS ORDERED: 0.9 % SODIUM CHLORIDE 10 ML DISP.SYRIN. IV PRN ×2 (14:30)
--- NOTE | 2016-09-23 15:07 | PDOC ---
Dialysis Progress Note Dialysis Note Dialysis Note Seen on Hemodialysis, tolerating treatment Okay Vitals on Hemodialysis: 128/77 79 afeb General Appearance: Awake: Alert Oriented x 1-2 Neck: No JVD or JVP Chest: CTA Dnony Heart: S1 S2 Abdomen - Soft NTND Extremities - No Edema ESRD: Dialysis as below F 180 NR 3.5 Hrs 2 K 2.5 Ca 140 Na 35 HC03 Qb 350 + Qd 500+ Heparin 0 Units Uf 1 to 2 Kgs or to dry weight as tolerated Transfuse 2 Units PRCBC's on HD if available in time May give 25-50 gms of 25% Albumin if needed to maintain Hemodynamic stability Treatment plan reviewed and discussed with sales account representative Vitals Vital Signs Vital Signs Date Time Temp Pulse Resp B/P Pulse Ox O2 Delivery O2 Flow Rate FiO2 09/23/16 13:09 Room Air 09/23/16 11:41 98 09/23/16 10:39 98.1 80 20 133/76 98.1 09/22/16 08:00 2.0 Labs Last Labs Laboratory Tests Test 09/22/16 05:15 09/23/16 04:05 09/23/16 04:50 Prothrombin Time 16.5SEC (11.7-14.0) 16.5SEC (11.7-14.0) Prothromb Time International Ratio 1.4 (0.8-1.1) 1.4 (0.8-1.1) White Blood Count 8.7x10^3/uL (4.0-11.0) Red Blood Count 2.65x10^6/uL (3.50-5.40) Hemoglobin 7.3g/dL (12.0-15.5) Hematocrit 22.7% (36.0-47.0) Mean Corpuscular Volume 85fL (79-100) Mean Corpuscular Hemoglobin 27pg (25-35) Mean Corpuscular Hemoglobin Concent 32g/dL (31-37) Red Cell Distribution Width 16.8% (11.5-14.5) Platelet Count 254x10^3/uL (140-400) Erythrocyte Sedimentation Rate 92 (0-25) Sodium Level 133mmol/L (136-145) Potassium Level 5.0mmol/L (3.5-5.1) Chloride Level 100mmol/L (98-107) Carbon Dioxide Level 27mmol/L (21-32) Anion Gap 6 (6-14) Blood Urea Nitrogen 37mg/dL (7-20) Creatinine 4.0mg/dL (0.6-1.0) Estimated GFR (Cockcroft-Gault) 13.8 Glucose Level 96mg/dL (70-99) Calcium Level 8.3mg/dL (8.5-10.1) Laboratory Tests Test 09/23/16 04:05 09/23/16 04:50 White Blood Count 8.7x10^3/uL (4.0-11.0) Red Blood Count 2.65x10^6/uL (3.50-5.40) Hemoglobin 7.3g/dL (12.0-15.5) Hematocrit 22.7% (36.0-47.0) Mean Corpuscular Volume 85fL (79-100) Mean Corpuscular Hemoglobin 27pg (25-35) Mean Corpuscular Hemoglobin Concent 32g/dL (31-37) Red Cell Distribution Width 16.8% (11.5-14.5) Platelet Count 254x10^3/uL (140-400) Erythrocyte Sedimentation Rate 92 (0-25) Prothrombin Time 16.5SEC (11.7-14.0) Prothromb Time International Ratio 1.4 (0.8-1.1) Sodium Level 133mmol/L (136-145) Potassium Level 5.0mmol/L (3.5-5.1) Chloride Level 100mmol/L (98-107) Carbon Dioxide Level 27mmol/L (21-32) Anion Gap 6 (6-14) Blood Urea Nitrogen 37mg/dL (7-20) Creatinine 4.0mg/dL (0.6-1.0) Estimated GFR (Cockcroft-Gault) 13.8 Glucose Level 96mg/dL (70-99) Calcium Level 8.3mg/dL (8.5-10.1) Assessment Assessment Problems Medical Problems: (1) Anemia Status: Acute (2) Coagulopathy Status: Acute (3) Coumadin toxicity Status: Acute (4) Elevated INR (international normalized ratio) due to prior anticoagulant medication ingestion Status: Acute (5) ESRD on dialysis Status: Acute (6) GI bleed Status: Acute Problems: Plan Plan of Care Problems Medical Problems: (1) Anemia Status: Acute (2) Coagulopathy Status: Acute (3) Coumadin toxicity Status: Acute (4) Elevated INR (international normalized ratio) due to prior anticoagulant medication ingestion Status: Acute (5) ESRD on dialysis Status: Acute (6) GI bleed Status: Acute HERMELINDA MCINTYRE MD Sep 23, 2016 15:07
[2016-09-23] MEDS ORDERED: WARFARIN 3 MG TABLET. PO ONE (17:00)
[2016-09-23 19:00] VITALS: BP 152/70
[2016-09-23] MEDS: NORTRIPTYLINE 25 MG CAPSULE PO SCH (20:41)
[2016-09-23] MEDS: DARBEPOETIN ALFA 60 MCG/0.3 ML DISP.SYRIN. SQ SCH (20:43)
[2016-09-23 23:00] VITALS: BP 134/74
[2016-09-24] VITALS (19 sets, daily range): BP systolic 114–167; BP diastolic 53–105
[2016-09-24] MEDS: OXYCODONE/APAP 10/325 TABLET. PO PRN ×4 (01:37→20:04)
[2016-09-24 04:27] LABS: INR 1.6 (0.8-1.1)
[2016-09-24] MEDS: ONDANSETRON ODT 4 MG TAB.RAPDIS PO SCH ×3 (06:00→22:00)
[2016-09-24] MEDS: BUDESONIDE 0.5 MG/2 ML NEBU NEB SCH ×2 (08:00→20:00)
[2016-09-24] MEDS: IPRATRPIUM/ALBUTEROL 0.5/2.5MG 3 ML NEBU. NEB SCH ×4 (08:00→20:00)
[2016-09-24] MEDS: LIDOCAINE (700MG/PATCH) PATCH. TP SCH (08:13)
[2016-09-24] MEDS: ALLOPURINOL 100 MG TABLET. PO SCH (08:13)
[2016-09-24] MEDS: SERTRALINE 50 MG TABLET. PO SCH (08:13)
[2016-09-24] MEDS: PANTOPRAZOLE 40 MG TABLET. PO SCH (08:13)
[2016-09-24] MEDS: CARVEDILOL 12.5 MG TABLET PO SCH ×2 (08:14→16:36)
[2016-09-24] MEDS: OXYCODONE ER 10 MG TAB.ER.12H. PO SCH ×2 (08:14→21:38)
[2016-09-24] MEDS: GABAPENTIN 300 MG CAPSULE. PO SCH (08:14)
--- NOTE | 2016-09-24 09:41 | PDOC ---
PROGRESS NOTES Subjective Subjective She admits low back pain with movement. Objective Objective Vital Signs Date Time Temp Pulse Resp B/P Pulse Ox O2 Delivery O2 Flow Rate FiO2 09/24/16 08:14 75 151/66 09/24/16 08:14 Room Air 09/24/16 07:00 98.3 17 98 98.3 09/22/16 08:00 2.0 Intake and Output 09/24/16 07:00 Intake Total 900 ml Output Total 325 ml Balance 575 ml Intake Oral 900 ml Output Urine Total 325 ml # Voids 2 # Bowel Movements 1 Physical Exam Physical Exam She is supine and comfortable in bed with lumbar corset on and she is not being seen by physical therapy pending neurosurgical advise about possible diskitis and osteomyelitis L2-L3 level. Se rate is 92. Assessment Assessment Problems Medical Problems: (1) Anemia Status: Acute (2) Coagulopathy Status: Acute (3) Coumadin toxicity Status: Acute (4) Elevated INR (international normalized ratio) due to prior anticoagulant medication ingestion Status: Acute (5) ESRD on dialysis Status: Acute (6) GI bleed Status: Acute Plan Plan of Care waiting for neurosurgical advise before transfer to SNF. Comment Review of Relevant I have reviewed the following items christi (where applicable) has been applied. Labs Laboratory Tests Test 09/23/16 04:05 09/23/16 04:50 09/24/16 03:50 White Blood Count 8.7x10^3/uL (4.0-11.0) Red Blood Count 2.65x10^6/uL (3.50-5.40) Hemoglobin 7.3g/dL (12.0-15.5) Hematocrit 22.7% (36.0-47.0) Mean Corpuscular Volume 85fL (79-100) Mean Corpuscular Hemoglobin 27pg (25-35) Mean Corpuscular Hemoglobin Concent 32g/dL (31-37) Red Cell Distribution Width 16.8% (11.5-14.5) Platelet Count 254x10^3/uL (140-400) Erythrocyte Sedimentation Rate 92 (0-25) Prothrombin Time 16.5SEC (11.7-14.0) 18.0SEC (11.7-14.0) Prothromb Time International Ratio 1.4 (0.8-1.1) 1.6 (0.8-1.1) Sodium Level 133mmol/L (136-145) Potassium Level 5.0mmol/L (3.5-5.1) Chloride Level 100mmol/L (98-107) Carbon Dioxide Level 27mmol/L (21-32) Anion Gap 6 (6-14) Blood Urea Nitrogen 37mg/dL (7-20) Creatinine 4.0mg/dL (0.6-1.0) Estimated GFR (Cockcroft-Gault) 13.8 Glucose Level 96mg/dL (70-99) Calcium Level 8.3mg/dL (8.5-10.1) Laboratory Tests Test 09/24/16 03:50 Prothrombin Time 18.0SEC (11.7-14.0) Prothromb Time International Ratio 1.6 (0.8-1.1) Medications Current Medications Oxycodone/ Acetaminophen (Percocet 5/325) 1 tab 1X ONCE PO ; Start 09/09/16 at 19:00; Stop 09/09/16 at 19:01; Status DC Hydromorphone HCl 1 mg 1 mg 1X ONCE IV Last administered on 09/09/16 19:21; Start 09/09/16 at 19:15; Stop 09/09/16 at 19:16; Status DC Pantoprazole Sodium/Sodium Chloride (Protonix Iv/Iv Sodium Chloride 0.9% 100ml) 100 ml @ 10 mls/hr 1X ONCE IV Last administered on 09/09/16 19:51; Start at 19:30; Stop 09/10/16 at 05:29; Status DC Ondansetron HCl 4 mg 4 mg PRN Q8HRS PRN IV NAUSEA/VOMITING Last administered on 09/09/16 19:51; Start 09/09/16 at 19:30; Stop 09/10/16 at 19:29; Status DC Sodium Chloride (Iv Sodium Chloride 0.9% 1000ml Bag) 1,000 ml @ 100 mls/hr Q10H IV Last administered on 09/09/16 19:51; Start 09/09/16 at 19:30; Stop at 06:00; Status DC Acetaminophen (Tylenol) 650 mg PRN Q4HRS PRN PO FEVER Last administered on 09/09 19:52; Start 09/09/16 at 19:30; Stop 09/10/16 at 19:29; Status DC Multi-Ingredient Mouthwash/Gargle 15 ml 15 ml 1X ONCE SWSW Last administered on 09/09/16 23:41; Start 09/09/16 at 23:30; Stop 09/09/16 at 23:31; Status DC Phytonadione/ Sodium Chloride (Vitamin K/Iv Sodium Chloride 0.9% 50ml) 51 ml @ 102 mls/hr 1X ONCE IV Last administered on 09/10/16 02:07; Start 09/10/16 at 00:00; Stop 09/10/16 at 00:29; Status DC Acetaminophen (Tylenol) 325 mg PRN Q4HRS PO ; Start 09/09/16 at 23:30; Stop at 23:30; Status DC Allopurinol (Zyloprim) 100 mg DAILY PO Last administered on 09/24/16 08:13; Start 09/10/16 at 09:00 Bisacodyl (Dulcolax Supp) 10 mg PRN DAILY PRN RC CONSTIPATION; Start 09/09/16 at 23:30 Cyclobenzaprine HCl (Flexeril) 10 mg PRN TID PRN PO back pain Last administered on 09/21/16 15:14; Start 09/09/16 at 23:30 Gabapentin (Neurontin) 300 mg DAILY PO Last administered on 09/24/16 08:14; Start 09/10/16 at 09:00 Ipratropium [place] (Atrovent) 0.2 mg QID NEB ; Start 09/10/16 at 09:00; Status UNV Lidocaine (Lidoderm) 1 patch DAILY TP Last administered on 09/24/16 08:13; Start 09/10/16 at 09:00 Nortriptyline HCl (Pamelor) 25 mg QHS PO Last administered on 09/23/16 20:41; Start 09/10/16 at 21:00 Oxycodone HCl (Oxycontin) 10 mg BID PO Last administered on 09/24/16 08:14; Start 09/10/16 at 09:00 Oxycodone/ Acetaminophen (Percocet 10/325) 1 tab PRN Q4HRS PRN PO SEVERE PAIN Last administered on 09/24/16 08:14; Start 09/09/16 at 23:30 Non-Formulary Medication 2 puff Q4HRS INH FOR ASTHMA; Start 09/10/16 at 00:00; Status UNV Carvedilol (Coreg) 25 mg BIDWMEALS PO Last administered on 09/24/16 08:14; Start 09/10/16 at 08:00 Non-Formulary Medication 1 puff BID IH ; Start 09/10/16 at 09:00; Status UNV Ondansetron HCl (Zofran Odt) 8 mg Q8HRS PO Last administered on 09/21/16 05:53 ; Start 09/10/16 at 06:00 Sertraline HCl (Zoloft) 100 mg DAILY PO Last administered on 09/24/16 08:13; Start 09/10/16 at 09:00 Labetalol HCl (Normodyne) 20 mg PRN Q2HR PRN IVP HYPERTENSION, SEE COMMENTS Last administered on 09/13/16 00:17; Start 09/09/16 at 23:30 Albuterol/ Ipratropium (Duoneb) 3 ml RTQID NEB Last administered on 09/23/16 11 :40; Start 09/10/16 at 08:00 Budesonide (Pulmicort) 0.5 mg RTBID NEB Last administered on 09/23/16 07:44; Start 09/10/16 at 08:00 Albuterol Sulfate 2.5 mg 2.5 mg PRN Q4HRS PRN NEB SHORTNESS OF BREATH; Start at 23:30 Pantoprazole Sodium 80 mg/ Sodium Chloride 100 ml @ 10 mls/hr Q10H IV Last administered on 09/13/16 07:51; Start 09/10/16 at 10:00; Stop 09/13/16 at 09:59 ; Status DC Magnesium Sulfate/ Dextrose 50 ml @ 25 mls/hr PRN DAILY PRN IV for Mag < 1.7 on am labs; Start 09/10/16 at 10:00; Stop 09/22/16 at 11:36; Status DC Sodium Chloride (Iv Sodium Chloride 0.9% 1000ml Bag) 1,000 ml @ 1,000 mls/hr Q1H PRN IV hypotension; Start 09/11/16 at 08:50; Stop 09/11/16 at 14:49; Status DC Diphenhydramine HCl (Benadryl) 25 mg 1X PRN PRN IV ITCHING; Start 09/11/16 at 09:00; Stop 09/12/16 at 08:59; Status DC Diphenhydramine HCl (Benadryl) 25 mg 1X PRN PRN IV ITCHING; Start 09/11/16 at 09:00; Stop 09/12/16 at 08:59; Status DC Sodium Chloride (Normal Saline Flush) 10 ml 1X PRN PRN IV AP catheter pack; Start 09/11/16 at 09:00; Stop 09/12/16 at 08:59; Status DC Sodium Chloride (Normal Saline Flush) 10 ml 1X PRN PRN IV MOTION [employer] PROJECTIONIST catheter pack; Start 09/11/16 at 09:00; Stop 09/12/16 at 08:59; Status DC Labetalol HCl 10 mg 10 mg PRN Q1HR PRN IVP SBP > 180; Start 09/11/16 at 09:00; Stop 09/12/16 at 08:59; Status DC Sodium Chloride (Iv Sodium Chloride 0.9% 1000ml Bag) 1,000 ml @ 400 mls/hr Q2H30M PRN IV PATENCY; Start 09/11/16 at 08:50; Stop 09/11/16 at 20:49; Status DC Info (PHARMACY MONITORING -- do not chart) 1 each PRN DAILY PRN MC SEE COMMENTS ; Start 09/11/16 at 09:00 Info (PHARMACY MONITORING -- do not chart) 1 each PRN DAILY PRN MC SEE COMMENTS ; Start 09/11/16 at 09:00; Status UNV Sodium Cl/Sod Bicarb/Potass Cl/ PEG (Golytely) 4,000 ml 1X ONCE PO Last administered on 09/11/16t 17:13; Start 09/11/16 at 13:00; Stop 09/11/16 at 13:01 ; Status DC Fentanyl Citrate (Fentanyl 2ml Vial) 25 mcg PRN Q5MIN PRN IV MILD PAIN; Start 09/12/16 at 07:00; Stop 09/13/16 at 06:59; Status DC Fentanyl Citrate 50 mcg 50 mcg PRN Q5MIN PRN IV MODERATE PAIN; Start 09/12/16 at 07:00; Stop 09/13/16 at 06:59; Status DC Lactated Ringer's (Iv Lactated Ringers) 1,000 ml @ 0 mls/hr Q0M IV ; Start at 07:00; Stop 09/12/16 at 18:59; Status DC Lidocaine HCl 2 ml 1X PRN PRN ID IV START; Start 09/12/16 at 07:00; Stop at 06:59; Status DC Prochlorperazine Edisylate (Compazine) 5 mg PACU PRN PRN IV NAUSEA; Start 09/12 at 07:00; Stop 09/13/16 at 06:59; Status DC Pantoprazole Sodium 40 mg 40 mg DAILYAC IVP ; Start 09/13/16 at 07:30; Status UNV Magnesium Sulfate/ Dextrose 50 ml @ 25 mls/hr 1X ONCE IV ; Start 09/12/16 at 11 :30; Stop 09/12/16 at 13:29; Status DC Propofol 0 ml @ As Directed STK-MED ONCE IV ; Start 09/12/16 at 12:55; Stop at 12:56; Status DC Propofol (Diprivan) 20 ml @ As Directed STK-MED ONCE IV ; Start 09/12/16 at 12: 55; Stop 09/12/16 at 12:56; Status Cancel Lidocaine HCl (Lidocaine Pf 2% Vial) 5 ml STK-MED ONCE .ROUTE ; Start 09/12/16 at 12:55; Stop 09/12/16 at 12:56; Status DC Lorazepam (Ativan) 2 mg PRN Q4HRS PRN IV ANXIETY / AGITATION; Start 09/12/16 at 14:15 Lorazepam (Ativan) 2 mg Q4HRS PRN IV ANXIETY / AGITATION; Start 09/12/16 at 14: 15; Status UNV Haloperidol Lactate (Haldol) 2.5 mg PRN Q6HRS PRN IM AGITATION; Start 09/12/16 at 14:15 Haloperidol Lactate (Haldol) 2.5 mg PRN Q6HRS PRN IVP AGITATION; Start at 14:15 Lorazepam 2 mg 2 mg PRN Q4HRS PRN IM ANXIETY / AGITATION; Start 09/12/16 at 14: 30; Stop 09/17/16 at 14:37; Status DC Sodium Chloride (Iv Sodium Chloride 0.9% 1000ml Bag) 1,000 ml @ 1,000 mls/hr Q1H PRN IV hypotension; Start 09/13/16 at 08:39; Stop 09/13/16 at 14:38; Status DC Diphenhydramine HCl (Benadryl) 25 mg 1X PRN PRN IV ITCHING; Start 09/13/16 at 08:45; Stop 09/14/16 at 08:44; Status DC Diphenhydramine HCl (Benadryl) 25 mg 1X PRN PRN IV ITCHING; Start 09/13/16 at 08:45; Stop 09/14/16 at 08:44; Status DC Sodium Chloride (Normal Saline Flush) 10 ml 1X PRN PRN IV AP catheter pack; Start 09/13/16 at 08:45; Stop 09/14/16 at 08:44; Status DC Sodium Chloride (Normal Saline Flush) 10 ml 1X PRN PRN IV MOTION PI[employer]URE PROJECTIONIST catheter pack; Start 09/13/16 at 08:45; Stop 09/14/16 at 08:44; Status DC Labetalol HCl (Normodyne) 10 mg PRN Q1HR PRN IVP SBP > 180; Start 09/13/16 at 08:45; Stop 09/14/16 at 08:44; Status DC Info (PHARMACY MONITORING -- do not chart) 1 each PRN DAILY PRN MC SEE COMMENTS ; Start 09/13/16 at 08:45; Status UNV Info (PHARMACY MONITORING -- do not chart) 1 each PRN DAILY PRN MC SEE COMMENTS ; Start 09/13/16 at 08:45; Status UNV Pantoprazole Sodium 40 mg 40 mg DAILYAC IVP Last administered on 09/16/16t 05: 57; Start 09/13/16 at 13:00; Stop 09/17/16 at 10:02; Status DC Sodium Chloride (Iv Sodium Chloride 0.9% 1000ml Bag) 1,000 ml @ 1,000 mls/hr Q1H PRN IV hypotension; Start 09/16/16 at 08:46; Stop 09/16/16 at 14:45; Status DC Diphenhydramine HCl (Benadryl) 25 mg 1X PRN PRN IV ITCHING; Start 09/16/16 at 09:00; Stop 09/17/16 at 08:59; Status DC Diphenhydramine HCl (Benadryl) 25 mg 1X PRN PRN IV ITCHING; Start 09/16/16 at 09:00; Stop 09/17/16 at 08:59; Status DC Sodium Chloride (Normal Saline Flush) 10 ml 1X PRN PRN IV AP catheter pack; Start 09/16/16 at 09:00; Stop 09/17/16 at 08:59; Status DC Sodium Chloride (Normal Saline Flush) 10 ml 1X PRN PRN IV MOTION [employer] PROJECTIONIST catheter pack; Start 09/16/16 at 09:00; Stop 09/17/16 at 08:59; Status DC Info (PHARMACY MONITORING -- do not chart) 1 each PRN DAILY PRN MC SEE COMMENTS ; Start 09/16/16 at 09:00; Status UNV Info (PHARMACY MONITORING -- do not chart) 1 each PRN DAILY PRN MC SEE COMMENTS ; Start 09/16/16 at 09:00; Status UNV Darbepoetin Ernst (Aranesp) 60 mcg [id number] SQ Last administered on 09/23/16 20: 43; Start 09/16/16 at 21:00 Pantoprazole Sodium (Protonix) 40 mg DAILYAC PO Last administered on 09/24/16 08:13; Start 09/17/16 at 10:02 Fentanyl Citrate (Fentanyl 2ml Vial) 25 mcg PRN Q5MIN PRN IV MILD PAIN; Start 09/18/16 at 07:00; Stop 09/19/16 at 06:59; Status DC Fentanyl Citrate 50 mcg 50 mcg PRN Q5MIN PRN IV MODERATE PAIN; Start 09/18/16 at 07:00; Stop 09/19/16 at 06:59; Status DC Lactated Ringer's (Iv Lactated Ringers) 1,000 ml @ 0 mls/hr Q0M IV ; Start 09/18 at 07:00; Stop 09/18/16 at 18:59; Status DC Lidocaine HCl 2 ml 1X PRN PRN ID IV START; Start 09/18/16 at 07:00; Stop at 06:59; Status DC Prochlorperazine Edisylate (Compazine) 5 mg PACU PRN PRN IV NAUSEA; Start at 07:00; Stop 09/19/16 at 06:59; Status DC Dextrose 25 gm 25 gm STK-MED ONCE IV Last administered on 09/18/16 08:19; Start 09/18/16 at 08:19; Stop 09/18/16 at 08:20; Status DC Propofol (Diprivan) 20 ml @ As Directed STK-MED ONCE IV ; Start 09/18/16 at 11:13 ; Stop 09/18/16 at 11:14; Status DC Lidocaine HCl 5 ml 5 ml STK-MED ONCE .ROUTE ; Start 09/18/16 at 11:13; Stop at 11:14; Status DC Sodium Chloride 1,000 ml @ 100 mls/hr 1X ONCE IV Last administered on 11:29; Start 09/18/16 at 11:30; Stop 09/18/16 at 21:29; Status DC Sodium Chloride (Iv Sodium Chloride 0.9% 1000ml Bag) 1,000 ml @ 1,000 mls/hr Q1H PRN IV hypotension; Start 09/18/16 at 13:47; Stop 09/18/16 at 19:46; Status DC Acetaminophen (Tylenol) 500 mg 1X PRN PRN PO MILD PAIN / TEMP; Start 09/18/16 at 14:00; Stop 09/19/16 at 13:59; Status DC Diphenhydramine HCl (Benadryl) 25 mg 1X PRN PRN IV ITCHING; Start 09/18/16 at 14 :00; Stop 09/19/16 at 13:59; Status DC Diphenhydramine HCl (Benadryl) 25 mg 1X PRN PRN IV ITCHING; Start 09/18/16 at 14 :00; Stop 09/19/16 at 13:59; Status DC Labetalol HCl 10 mg 10 mg PRN Q1HR PRN IVP SBP > 180; Start 09/18/16 at 14:00; Stop 09/19/16 at 13:59; Status DC Sodium Chloride (Iv Sodium Chloride 0.9% 1000ml Bag) 1,000 ml @ 400 mls/hr Q2H30M PRN IV PATENCY; Start 09/18/16 at 13:47; Stop 09/19/16 at 01:46; Status DC Info 1 each 1 each PRN DAILY PRN MC SEE COMMENTS; Start 09/18/16 at 14:00; Status UNV Sodium Chloride 1,000 ml @ 1,000 mls/hr Q1H PRN IV hypotension; Start 09/20/16 at 07:30; Stop 09/20/16 at 18:00; Status DC Albumin Human (Albuminar) 200 ml @ 200 mls/hr 1X PRN PRN IV Hypotension; Start 09/20/16 at 07:45; Stop 09/20/16 at 14:00; Status DC Acetaminophen (Tylenol) 500 mg 1X PRN PRN PO MILD PAIN / TEMP; Start 09/20/16 at 07:45; Stop 09/20/16 at 18:00; Status DC Diphenhydramine HCl (Benadryl) 25 mg 1X PRN PRN IV ITCHING; Start 09/20/16 at 07 :45; Stop 09/20/16 at 18:00; Status DC Diphenhydramine HCl (Benadryl) 25 mg 1X PRN PRN IV ITCHING; Start 09/20/16 at 07 :45; Stop 09/20/16 at 18:00; Status DC Sodium Chloride (Normal Saline Flush) 10 ml 1X PRN PRN IV AP catheter pack; Start 09/20/16 at 07:45; Stop 09/20/16 at 18:00; Status DC Sodium Chloride (Normal Saline Flush) 10 ml 1X PRN PRN IV MOTION PICTURE PROJECTIONIST catheter pack; Start 09/20/16 at 07:45; Stop 09/20/16 at 18:00; Status DC Labetalol HCl 10 mg 10 mg PRN Q1HR PRN IVP SBP > 180; Start 09/20/16 at 07:45; Stop 09/20/16 at 18:00; Status DC Sodium Chloride (Iv Sodium Chloride 0.9% 1000ml Bag) 1,000 ml @ 400 mls/hr Q2H30M PRN IV PATENCY; Start 09/20/16 at 07:45; Stop 09/20/16 at 18:00; Status DC Info (PHARMACY MONITORING -- do not chart) 1 each PRN DAILY PRN MC SEE COMMENTS ; Start 09/20/16 at 07:45; Status UNV Warfarin Sodium (Coumadin Per Pharmacy) 1 each PRN DAILY PRN MC SEE COMMENTS Last administered on 3/6/17at 16:49; Start 09/20/16 at 14:30 Warfarin Sodium (Coumadin) 2 mg 1X WARF ONCE PO Last administered on 09/20/16 17:27; Start 09/20/16 at 17:14; Stop 09/20/16 at 17:15; Status DC Methylprednisolone Acetate (Depo-Medrol 80mg Vial) 80 mg 1X ONCE IM ; Start 09/20/16 at 17:30; Stop 09/20/16 at 17:33; Status DC Methylprednisolone Acetate (Depo-Medrol 40mg Vial) 40 mg 1X ONCE IM ; Start 09/20/16 at 17:30; Stop 09/20/16 at 17:33; Status DC Bupivacaine HCl (Sensorcaine-Mpf 0.25%) 10 ml 1X ONCE IJ ; Start 09/20/16 at 17: 30; Stop 09/20/16 at 17:33; Status DC Warfarin Sodium (Coumadin) 2 mg 1X WARF ONCE PO Last administered on 09/21/16 17:14; Start 09/21/16 at 16:00; Stop 09/21/16 at 16:01; Status DC Warfarin Sodium 3 mg 3 mg 1X WARF ONCE PO Last administered on 09/22/16 17:28 ; Start 09/22/16 at 16:00; Stop 09/22/16 at 16:01; Status DC Sodium Chloride (Iv Sodium Chloride 0.9% 1000ml Bag) 1,000 ml @ 1,000 mls/hr Q1H PRN IV hypotension; Start 09/23/16 at 14:18; Stop 09/23/16 at 21:00; Status DC Sodium Chloride (Normal Saline Flush) 10 ml 1X PRN PRN IV AP catheter pack; Start 09/23/16 at 14:30; Stop 09/23/16 at 21:00; Status DC Sodium Chloride (Normal Saline Flush) 10 ml 1X PRN PRN IV MOTION PICTURE PROJECTIONIST catheter pack; Start 09/23/16 at 14:30; Stop 09/23/16 at 21:00; Status DC Info (PHARMACY MONITORING -- do not chart) 1 each PRN DAILY PRN MC SEE COMMENTS ; Start 09/23/16 at 14:30; Status UNV Info (PHARMACY MONITORING -- do not chart) 1 each PRN DAILY PRN MC SEE COMMENTS ; Start 09/23/16 at 14:30; Status UNV Warfarin Sodium (Coumadin) 3 mg 1X ONCE PO Last administered on 09/23/16t 17:34 ; Start 09/23/16 at 17:00; Stop 09/23/16 at 17:01; Status DC Active Scripts Active Reported [Mylanta] Tylenol (Acetaminophen) 325 Mg Tablet 1 Tab PO PRN Q4HRS Fleet Enema (Na Phos,M-B/Na Phos,Di-Ba) 133 Ml Enema 1 Each RC ONCE Dulcolax (Bisacodyl) 10 Mg Supp.rect 10 Mg RC PRN DAILY PRN Zofran Odt (Ondansetron) 8 Mg Tab.rapdis 1 Tab PO PRN Q8HRS PRN Nitrostat (Nitroglycerin) 0.4 Mg Tab.subl 1 Tab SL UD Cyclobenzaprine Hcl 10 Mg Tablet 1 Tab PO TID Zepatier 50-100 mg Tablet (Elbasvir/Grazoprevir) 1 Each Tablet 1 Each PO [PhosLo] Coreg (Carvedilol) 25 Mg Tablet 1 Tab PO BID Aspirin 81 Mg Tab.chew 1 Tab PO DAILY Allopurinol 100 Mg Tablet 1 Tab PO DAILY Ventolin Hfa Inhaler (Albuterol Sulfate) 18 Gm Hfa.aer.ad 2 Puff INH Q4HRS Nephplex Rx Tablet (Vit B Cmplx No3/Fa/C/Biot/Zinc) 1 Each Tablet 1 Each PO Senokot (Sennosides) 8.6 Mg Tablet 1 Tab PO BID Oxycontin (Oxycodone HCl) 10 Mg Tab.er.12h 10 Mg PO BID Glycolax (Polyethylene Glycol 3350) 119 Gm Powder 17 Gm PO UD Percocet 10-325 Mg Tablet (Oxycodone/Acetaminophen) 1 Each Tablet 1 Tab PO Q4- 6HRS Vitamin D3 (Cholecalciferol (Vitamin D3)) 1,000 Unit Tablet 1 Tab PO DAILY Advair 250-50 Diskus (Fluticasone/Salmeterol) 1 Each Disk.w.dev 1 Puff IH BID Ipratropium [place] 0.2 Mg/1 Ml Solution 1 Vial NEB QID Lidoderm (Lidocaine) 700 Mg Adh..patch 1 Patch TP DAILY Nortriptyline Hcl 25 Mg Capsule 1 Cap PO QHS Ciprofloxacin Hcl 250 Mg Tablet 1 Tab PO BID Warfarin Sodium 2 Mg Tablet 1.5 Mg PO DAILY Gabapentin 300 Mg Capsule 300 Mg PO TID Zoloft (Sertraline Hcl) 100 Mg Tablet 1 Tab PO DAILY Vitals/I & O Vital Sign - Last 24 Hours 09/23/16 09/23/16 09/23/16 09/23/16 10:39 11:41 17:35 17:56 Temp 98.1 98.1 Pulse 80 80 Resp 20 B/P 133/76 147/84 Pulse Ox 95 98 O2 Delivery Room Air Room Air Room Air 09/23/16 09/23/16 09/23/16 09/23/16 19:00 20:00 20:41 23:00 Temp 98.4 98.0 98.4 98.0 Pulse 79 83 Resp 20 20 B/P 152/70 134/74 Pulse Ox 99 93 O2 Delivery Room Air Room Air Room Air Room Air 09/24/16 09/24/16 09/24/16 09/24/16 00:41 01:37 02:37 03:00 Temp 98.2 98.2 Pulse 83 Resp 20 B/P 156/78 Pulse Ox 98 O2 Delivery Room Air Room Air Room Air Room Air 09/24/16 09/24/16 09/24/16 09/24/16 07:00 08:00 08:14 08:14 Temp 98.3 98.3 Pulse 75 Resp 17 B/P 151/66 Pulse Ox 98 O2 Delivery Room Air Room Air Room Air Room Air 09/24/16 08:14 Pulse 75 B/P 151/66 Intake and Output 09/23/16 09/23/16 09/24/16 15:00 23:00 07:00 Intake Total 300 ml 600 ml Output Total 25 ml 300 ml Balance -25 ml 300 ml 300 ml CAROLANN PRUETT MD Sep 24, 2016 09:41
--- NOTE | 2016-09-24 10:31 | PDOC ---
Provider Note Provider Note patient seen and examined possible lumbar discitis/osteomyelitis will need MRI with contrast if okay with Renal consult IR for disc aspirate and IR renal cyst will need to be evaluated full consult to follow TEAGAN HAYNES MD Sep 24, 2016 10:31
--- NOTE | 2016-09-24 10:48 | PDOC ---
PROGRESS NOTES Chief Complaint Chief Complaint 1. Acute blood loss anemia, GI bleed, s/p EGD 2. ESRD, on HD MWF 3. Coumadin coagulopathy, 4. Hypertension, comtrolled 5. Asthma, hx 6. Obesity 7. Back pain 8. A fib on coumadin 9. [facility] resident 10. RCC vs renal complex cyst - NEW 11. Discsitis vs OM - back -NEW History of Present Illness History of Present Illness BAck pain and Rt knee pain Back pain more NO fevers NO white ct Neurosx wishes to hold dc and pursue further investigation of the back including MRI WITH contrast Plans to discuss with renal since pt is HD Incidenatl RCC vs complex renal mass CT: IMPRESSION 1. Marked discogenic disease with loss of intervertebral disc material and fluid signal at L1-L2, L2-L3 and L3-L4. There is bony endplate edema at L1-2 suggesting possible discitis and osteomyelitis. Recommend correlation with sed rate and CBC. If there is clinical in decision MR with contrast may be helpful. 2. 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 There appears to be compression of the intra foraminal course of the exiting nerve roots on the left at L3-L4 and L4-5 and on the right at L3-L4. 3. Complex cyst versus mass seen anteriorly in the right kidney. This is not well evaluated but could be a renal cell carcinoma. 4. Presacral edema is nonspecific and is of uncertain etiology. PLAN: COnsult urology re RCC vs complex cyst Hold dc Dw ID and RN Vitals Vitals Vital Signs Date Time Temp Pulse Resp B/P Pulse Ox O2 Delivery O2 Flow Rate FiO2 09/24/16 09:50 Room Air 09/24/16 08:14 75 151/66 09/24/16 07:00 98.3 17 98 98.3 Physical Exam General: Alert, Oriented X3, Cooperative, No acute distress Heart: Normal S1, Normal S2 Lungs: Clear Abdomen: Normal bowel sounds, Soft, No tenderness, No hepatosplenomegaly Extremities: No clubbing, No cyanosis, Other (back, no spinal tenderness. ) Skin: No rashes, No significant lesion, Other Labs LABS Laboratory Tests Test 09/24/16 03:50 Prothrombin Time 18.0SEC (11.7-14.0) Prothromb Time International Ratio 1.6 (0.8-1.1) Review of Systems Review of Systems back pain, RT knee pain, no melena, abd pain Assessment and Plan Assessmemt and Plan Problems Medical Problems: (1) Anemia Status: Acute (2) Coagulopathy Status: Acute (3) Coumadin toxicity Status: Acute (4) Elevated INR (international normalized ratio) due to prior anticoagulant medication ingestion Status: Acute (5) ESRD on dialysis Status: Acute (6) GI bleed Status: Acute Problems: Comment Review of Relevant I have reviewed the following items christi (where applicable) has been applied. Labs Laboratory Tests Test 09/23/16 04:05 09/23/16 04:50 09/24/16 03:50 White Blood Count 8.7x10^3/uL (4.0-11.0) Red Blood Count 2.65x10^6/uL (3.50-5.40) Hemoglobin 7.3g/dL (12.0-15.5) Hematocrit 22.7% (36.0-47.0) Mean Corpuscular Volume 85fL (79-100) Mean Corpuscular Hemoglobin 27pg (25-35) Mean Corpuscular Hemoglobin Concent 32g/dL (31-37) Red Cell Distribution Width 16.8% (11.5-14.5) Platelet Count 254x10^3/uL (140-400) Erythrocyte Sedimentation Rate 92 (0-25) Prothrombin Time 16.5SEC (11.7-14.0) 18.0SEC (11.7-14.0) Prothromb Time International Ratio 1.4 (0.8-1.1) 1.6 (0.8-1.1) Sodium Level 133mmol/L (136-145) Potassium Level 5.0mmol/L (3.5-5.1) Chloride Level 100mmol/L (98-107) Carbon Dioxide Level 27mmol/L (21-32) Anion Gap 6 (6-14) Blood Urea Nitrogen 37mg/dL (7-20) Creatinine 4.0mg/dL (0.6-1.0) Estimated GFR (Cockcroft-Gault) 13.8 Glucose Level 96mg/dL (70-99) Calcium Level 8.3mg/dL (8.5-10.1) Laboratory Tests Test 09/24/16 03:50 Prothrombin Time 18.0SEC (11.7-14.0) Prothromb Time International Ratio 1.6 (0.8-1.1) Medications Current Medications Oxycodone/ Acetaminophen (Percocet 5/325) 1 tab 1X ONCE PO ; Start 09/09/16 at 19:00; Stop 09/09/16 at 19:01; Status DC Hydromorphone HCl 1 mg 1 mg 1X ONCE IV Last administered on 09/09/16 19:21; Start 09/09/16 at 19:15; Stop 09/09/16 at 19:16; Status DC Pantoprazole Sodium/Sodium Chloride (Protonix Iv/Iv Sodium Chloride 0.9% 100ml) 100 ml @ 10 mls/hr 1X ONCE IV Last administered on 09/09/16 19:51; Start at 19:30; Stop 09/10/16 at 05:29; Status DC Ondansetron HCl 4 mg 4 mg PRN Q8HRS PRN IV NAUSEA/VOMITING Last administered on 09/09/16 19:51; Start 09/09/16 at 19:30; Stop 09/10/16 at 19:29; Status DC Sodium Chloride (Iv Sodium Chloride 0.9% 1000ml Bag) 1,000 ml @ 100 mls/hr Q10H IV Last administered on 09/09/16 19:51; Start 09/09/16 at 19:30; Stop at 06:00; Status DC Acetaminophen (Tylenol) 650 mg PRN Q4HRS PRN PO FEVER Last administered on 09/09 19:52; Start 09/09/16 at 19:30; Stop 09/10/16 at 19:29; Status DC Multi-Ingredient Mouthwash/Gargle 15 ml 15 ml 1X ONCE SWSW Last administered on 09/09/16 23:41; Start 09/09/16 at 23:30; Stop 09/09/16 at 23:31; Status DC Phytonadione/ Sodium Chloride (Vitamin K/Iv Sodium Chloride 0.9% 50ml) 51 ml @ 102 mls/hr 1X ONCE IV Last administered on 09/10/16 02:07; Start 09/10/16 at 00:00; Stop 09/10/16 at 00:29; Status DC Acetaminophen (Tylenol) 325 mg PRN Q4HRS PO ; Start 09/09/16 at 23:30; Stop at 23:30; Status DC Allopurinol (Zyloprim) 100 mg DAILY PO Last administered on 09/24/16 08:13; Start 09/10/16 at 09:00 Bisacodyl (Dulcolax Supp) 10 mg PRN DAILY PRN RC CONSTIPATION; Start 09/09/16 at 23:30 Cyclobenzaprine HCl (Flexeril) 10 mg PRN TID PRN PO back pain Last administered on 09/21/16 15:14; Start 09/09/16 at 23:30 Gabapentin (Neurontin) 300 mg DAILY PO Last administered on 09/24/16 08:14; Start 09/10/16 at 09:00 Ipratropium Rillito (Atrovent) 0.2 mg QID NEB ; Start 09/10/16 at 09:00; Status UNV Lidocaine (Lidoderm) 1 patch DAILY TP Last administered on 09/24/16 08:13; Start 09/10/16 at 09:00 Nortriptyline HCl (Pamelor) 25 mg QHS PO Last administered on 09/23/16 20:41; Start 09/10/16 at 21:00 Oxycodone HCl (Oxycontin) 10 mg BID PO Last administered on 09/24/16 08:14; Start 09/10/16 at 09:00 Oxycodone/ Acetaminophen (Percocet 10/325) 1 tab PRN Q4HRS PRN PO SEVERE PAIN Last administered on 09/24/16 08:14; Start 09/09/16 at 23:30 Non-Formulary Medication 2 puff Q4HRS INH FOR ASTHMA; Start 09/10/16 at 00:00; Status UNV Carvedilol (Coreg) 25 mg BIDWMEALS PO Last administered on 09/24/16 08:14; Start 09/10/16 at 08:00 Non-Formulary Medication 1 puff BID IH ; Start 09/10/16 at 09:00; Status UNV Ondansetron HCl (Zofran Odt) 8 mg Q8HRS PO Last administered on 09/21/16 05:53 ; Start 09/10/16 at 06:00 Sertraline HCl (Zoloft) 100 mg DAILY PO Last administered on 09/24/16 08:13; Start 09/10/16 at 09:00 Labetalol HCl (Normodyne) 20 mg PRN Q2HR PRN IVP HYPERTENSION, SEE COMMENTS Last administered on 09/13/16 00:17; Start 09/09/16 at 23:30 Albuterol/ Ipratropium (Duoneb) 3 ml RTQID NEB Last administered on 09/23/16 11 :40; Start 09/10/16 at 08:00 Budesonide (Pulmicort) 0.5 mg RTBID NEB Last administered on 09/23/16 07:44; Start 09/10/16 at 08:00 Albuterol Sulfate 2.5 mg 2.5 mg PRN Q4HRS PRN NEB SHORTNESS OF BREATH; Start at 23:30 Pantoprazole Sodium 80 mg/ Sodium Chloride 100 ml @ 10 mls/hr Q10H IV Last administered on 09/13/16 07:51; Start 09/10/16 at 10:00; Stop 09/13/16 at 09:59 ; Status DC Magnesium Sulfate/ Dextrose 50 ml @ 25 mls/hr PRN DAILY PRN IV for Mag < 1.7 on am labs; Start 09/10/16 at 10:00; Stop 09/22/16 at 11:36; Status DC Sodium Chloride (Iv Sodium Chloride 0.9% 1000ml Bag) 1,000 ml @ 1,000 mls/hr Q1H PRN IV hypotension; Start 09/11/16 at 08:50; Stop 09/11/16 at 14:49; Status DC Diphenhydramine HCl (Benadryl) 25 mg 1X PRN PRN IV ITCHING; Start 09/11/16 at 09:00; Stop 09/12/16 at 08:59; Status DC Diphenhydramine HCl (Benadryl) 25 mg 1X PRN PRN IV ITCHING; Start 09/11/16 at 09:00; Stop 09/12/16 at 08:59; Status DC Sodium Chloride (Normal Saline Flush) 10 ml 1X PRN PRN IV AP catheter pack; Start 09/11/16 at 09:00; Stop 09/12/16 at 08:59; Status DC Sodium Chloride (Normal Saline Flush) 10 ml 1X PRN PRN IV LIMITED RADIOLOGY TECHNICIAN catheter pack; Start 09/11/16 at 09:00; Stop 09/12/16 at 08:59; Status DC Labetalol HCl 10 mg 10 mg PRN Q1HR PRN IVP SBP > 180; Start 09/11/16 at 09:00; Stop 09/12/16 at 08:59; Status DC Sodium Chloride (Iv Sodium Chloride 0.9% 1000ml Bag) 1,000 ml @ 400 mls/hr Q2H30M PRN IV PATENCY; Start 09/11/16 at 08:50; Stop 09/11/16 at 20:49; Status DC Info (PHARMACY MONITORING -- do not chart) 1 each PRN DAILY PRN MC SEE COMMENTS ; Start 09/11/16 at 09:00 Info (PHARMACY MONITORING -- do not chart) 1 each PRN DAILY PRN MC SEE COMMENTS ; Start 09/11/16 at 09:00; Status UNV Sodium Cl/Sod Bicarb/Potass Cl/ PEG (Golytely) 4,000 ml 1X ONCE PO Last administered on 09/11/16t 17:13; Start 09/11/16 at 13:00; Stop 09/11/16 at 13:01 ; Status DC Fentanyl Citrate (Fentanyl 2ml Vial) 25 mcg PRN Q5MIN PRN IV MILD PAIN; Start 09/12/16 at 07:00; Stop 09/13/16 at 06:59; Status DC Fentanyl Citrate 50 mcg 50 mcg PRN Q5MIN PRN IV MODERATE PAIN; Start 09/12/16 at 07:00; Stop 09/13/16 at 06:59; Status DC Lactated Ringer's (Iv Lactated Ringers) 1,000 ml @ 0 mls/hr Q0M IV ; Start at 07:00; Stop 09/12/16 at 18:59; Status DC Lidocaine HCl 2 ml 1X PRN PRN ID IV START; Start 09/12/16 at 07:00; Stop at 06:59; Status DC Prochlorperazine Edisylate (Compazine) 5 mg PACU PRN PRN IV NAUSEA; Start 09/12 at 07:00; Stop 09/13/16 at 06:59; Status DC Pantoprazole Sodium 40 mg 40 mg DAILYAC IVP ; Start 09/13/16 at 07:30; Status UNV Magnesium Sulfate/ Dextrose 50 ml @ 25 mls/hr 1X ONCE IV ; Start 09/12/16 at 11 :30; Stop 09/12/16 at 13:29; Status DC Propofol 0 ml @ As Directed STK-MED ONCE IV ; Start 09/12/16 at 12:55; Stop at 12:56; Status DC Propofol (Diprivan) 20 ml @ As Directed STK-MED ONCE IV ; Start 09/12/16 at 12: 55; Stop 09/12/16 at 12:56; Status Cancel Lidocaine HCl (Lidocaine Pf 2% Vial) 5 ml STK-MED ONCE .ROUTE ; Start 09/12/16 at 12:55; Stop 09/12/16 at 12:56; Status DC Lorazepam (Ativan) 2 mg PRN Q4HRS PRN IV ANXIETY / AGITATION; Start 09/12/16 at 14:15 Lorazepam (Ativan) 2 mg Q4HRS PRN IV ANXIETY / AGITATION; Start 09/12/16 at 14: 15; Status UNV Haloperidol Lactate (Haldol) 2.5 mg PRN Q6HRS PRN IM AGITATION; Start 09/12/16 at 14:15 Haloperidol Lactate (Haldol) 2.5 mg PRN Q6HRS PRN IVP AGITATION; Start at 14:15 Lorazepam 2 mg 2 mg PRN Q4HRS PRN IM ANXIETY / AGITATION; Start 09/12/16 at 14: 30; Stop 09/17/16 at 14:37; Status DC Sodium Chloride (Iv Sodium Chloride 0.9% 1000ml Bag) 1,000 ml @ 1,000 mls/hr Q1H PRN IV hypotension; Start 09/13/16 at 08:39; Stop 09/13/16 at 14:38; Status DC Diphenhydramine HCl (Benadryl) 25 mg 1X PRN PRN IV ITCHING; Start 09/13/16 at 08:45; Stop 09/14/16 at 08:44; Status DC Diphenhydramine HCl (Benadryl) 25 mg 1X PRN PRN IV ITCHING; Start 09/13/16 at 08:45; Stop 09/14/16 at 08:44; Status DC Sodium Chloride (Normal Saline Flush) 10 ml 1X PRN PRN IV AP catheter pack; Start 09/13/16 at 08:45; Stop 09/14/16 at 08:44; Status DC Sodium Chloride (Normal Saline Flush) 10 ml 1X PRN PRN IV LIMITED RADIOLOGY TECHNICIAN catheter pack; Start 09/13/16 at 08:45; Stop 09/14/16 at 08:44; Status DC Labetalol HCl (Normodyne) 10 mg PRN Q1HR PRN IVP SBP > 180; Start 09/13/16 at 08:45; Stop 09/14/16 at 08:44; Status DC Info (PHARMACY MONITORING -- do not chart) 1 each PRN DAILY PRN MC SEE COMMENTS ; Start 09/13/16 at 08:45; Status UNV Info (PHARMACY MONITORING -- do not chart) 1 each PRN DAILY PRN MC SEE COMMENTS ; Start 09/13/16 at 08:45; Status UNV Pantoprazole Sodium 40 mg 40 mg DAILYAC IVP Last administered on 09/16/16t 05: 57; Start 09/13/16 at 13:00; Stop 09/17/16 at 10:02; Status DC Sodium Chloride (Iv Sodium Chloride 0.9% 1000ml Bag) 1,000 ml @ 1,000 mls/hr Q1H PRN IV hypotension; Start 09/16/16 at 08:46; Stop 09/16/16 at 14:45; Status DC Diphenhydramine HCl (Benadryl) 25 mg 1X PRN PRN IV ITCHING; Start 09/16/16 at 09:00; Stop 09/17/16 at 08:59; Status DC Diphenhydramine HCl (Benadryl) 25 mg 1X PRN PRN IV ITCHING; Start 09/16/16 at 09:00; Stop 09/17/16 at 08:59; Status DC Sodium Chloride (Normal Saline Flush) 10 ml 1X PRN PRN IV AP catheter pack; Start 09/16/16 at 09:00; Stop 09/17/16 at 08:59; Status DC Sodium Chloride (Normal Saline Flush) 10 ml 1X PRN PRN IV LIMITED RADIOLOGY TECHNICIAN catheter pack; Start 09/16/16 at 09:00; Stop 09/17/16 at 08:59; Status DC Info (PHARMACY MONITORING -- do not chart) 1 each PRN DAILY PRN MC SEE COMMENTS ; Start 09/16/16 at 09:00; Status UNV Info (PHARMACY MONITORING -- do not chart) 1 each PRN DAILY PRN MC SEE COMMENTS ; Start 09/16/16 at 09:00; Status UNV Darbepoetin Ernst (Aranesp) 60 mcg WEEKLYHS SQ Last administered on 09/23/16 20: 43; Start 09/16/16 at 21:00 Pantoprazole Sodium (Protonix) 40 mg DAILYAC PO Last administered on 09/24/16 08:13; Start 09/17/16 at 10:02 Fentanyl Citrate (Fentanyl 2ml Vial) 25 mcg PRN Q5MIN PRN IV MILD PAIN; Start 09/18/16 at 07:00; Stop 09/19/16 at 06:59; Status DC Fentanyl Citrate 50 mcg 50 mcg PRN Q5MIN PRN IV MODERATE PAIN; Start 09/18/16 at 07:00; Stop 09/19/16 at 06:59; Status DC Lactated Ringer's (Iv Lactated Ringers) 1,000 ml @ 0 mls/hr Q0M IV ; Start 09/18 at 07:00; Stop 09/18/16 at 18:59; Status DC Lidocaine HCl 2 ml 1X PRN PRN ID IV START; Start 09/18/16 at 07:00; Stop at 06:59; Status DC Prochlorperazine Edisylate (Compazine) 5 mg PACU PRN PRN IV NAUSEA; Start at 07:00; Stop 09/19/16 at 06:59; Status DC Dextrose 25 gm 25 gm STK-MED ONCE IV Last administered on 09/18/16 08:19; Start 09/18/16 at 08:19; Stop 09/18/16 at 08:20; Status DC Propofol (Diprivan) 20 ml @ As Directed STK-MED ONCE IV ; Start 09/18/16 at 11:13 ; Stop 09/18/16 at 11:14; Status DC Lidocaine HCl 5 ml 5 ml STK-MED ONCE .ROUTE ; Start 09/18/16 at 11:13; Stop at 11:14; Status DC Sodium Chloride 1,000 ml @ 100 mls/hr 1X ONCE IV Last administered on t 11:29; Start 09/18/16 at 11:30; Stop 09/18/16 at 21:29; Status DC Sodium Chloride (Iv Sodium Chloride 0.9% 1000ml Bag) 1,000 ml @ 1,000 mls/hr Q1H PRN IV hypotension; Start 09/18/16 at 13:47; Stop 09/18/16 at 19:46; Status DC Acetaminophen (Tylenol) 500 mg 1X PRN PRN PO MILD PAIN / TEMP; Start 09/18/16 at 14:00; Stop 09/19/16 at 13:59; Status DC Diphenhydramine HCl (Benadryl) 25 mg 1X PRN PRN IV ITCHING; Start 09/18/16 at 14 :00; Stop 09/19/16 at 13:59; Status DC Diphenhydramine HCl (Benadryl) 25 mg 1X PRN PRN IV ITCHING; Start 09/18/16 at 14 :00; Stop 09/19/16 at 13:59; Status DC Labetalol HCl 10 mg 10 mg PRN Q1HR PRN IVP SBP > 180; Start 09/18/16 at 14:00; Stop 09/19/16 at 13:59; Status DC Sodium Chloride (Iv Sodium Chloride 0.9% 1000ml Bag) 1,000 ml @ 400 mls/hr Q2H30M PRN IV PATENCY; Start 09/18/16 at 13:47; Stop 09/19/16 at 01:46; Status DC Info 1 each 1 each PRN DAILY PRN MC SEE COMMENTS; Start 09/18/16 at 14:00; Status UNV Sodium Chloride 1,000 ml @ 1,000 mls/hr Q1H PRN IV hypotension; Start 09/20/16 at 07:30; Stop 09/20/16 at 18:00; Status DC Albumin Human (Albuminar) 200 ml @ 200 mls/hr 1X PRN PRN IV Hypotension; Start 09/20/16 at 07:45; Stop 09/20/16 at 14:00; Status DC Acetaminophen (Tylenol) 500 mg 1X PRN PRN PO MILD PAIN / TEMP; Start 09/20/16 at 07:45; Stop 09/20/16 at 18:00; Status DC Diphenhydramine HCl (Benadryl) 25 mg 1X PRN PRN IV ITCHING; Start 09/20/16 at 07 :45; Stop 09/20/16 at 18:00; Status DC Diphenhydramine HCl (Benadryl) 25 mg 1X PRN PRN IV ITCHING; Start 09/20/16 at 07 :45; Stop 09/20/16 at 18:00; Status DC Sodium Chloride (Normal Saline Flush) 10 ml 1X PRN PRN IV AP catheter pack; Start 09/20/16 at 07:45; Stop 09/20/16 at 18:00; Status DC Sodium Chloride (Normal Saline Flush) 10 ml 1X PRN PRN IV LIMITED RADIOLOGY TECHNICIAN catheter pack; Start 09/20/16 at 07:45; Stop 09/20/16 at 18:00; Status DC Labetalol HCl 10 mg 10 mg PRN Q1HR PRN IVP SBP > 180; Start 09/20/16 at 07:45; Stop 09/20/16 at 18:00; Status DC Sodium Chloride (Iv Sodium Chloride 0.9% 1000ml Bag) 1,000 ml @ 400 mls/hr Q2H30M PRN IV PATENCY; Start 09/20/16 at 07:45; Stop 09/20/16 at 18:00; Status DC Info (PHARMACY MONITORING -- do not chart) 1 each PRN DAILY PRN MC SEE COMMENTS ; Start 09/20/16 at 07:45; Status UNV Warfarin Sodium (Coumadin Per Pharmacy) 1 each PRN DAILY PRN MC SEE COMMENTS Last administered on 09/23/16 16:49; Start 09/20/16 at 14:30 Warfarin Sodium (Coumadin) 2 mg 1X WARF ONCE PO Last administered on 09/20/16 17:27; Start 09/20/16 at 17:14; Stop 09/20/16 at 17:15; Status DC Methylprednisolone Acetate (Depo-Medrol 80mg Vial) 80 mg 1X ONCE IM ; Start 09/20/16 at 17:30; Stop 09/20/16 at 17:33; Status DC Methylprednisolone Acetate (Depo-Medrol 40mg Vial) 40 mg 1X ONCE IM ; Start 09/20/16 at 17:30; Stop 09/20/16 at 17:33; Status DC Bupivacaine HCl (Sensorcaine-Mpf 0.25%) 10 ml 1X ONCE IJ ; Start 09/20/16 at 17: 30; Stop 09/20/16 at 17:33; Status DC Warfarin Sodium (Coumadin) 2 mg 1X WARF ONCE PO Last administered on 09/21/16 17:14; Start 09/21/16 at 16:00; Stop 09/21/16 at 16:01; Status DC Warfarin Sodium 3 mg 3 mg 1X WARF ONCE PO Last administered on 09/22/16 17:28 ; Start 09/22/16 at 16:00; Stop 09/22/16 at 16:01; Status DC Sodium Chloride (Iv Sodium Chloride 0.9% 1000ml Bag) 1,000 ml @ 1,000 mls/hr Q1H PRN IV hypotension; Start 09/23/16 at 14:18; Stop 09/23/16 at 21:00; Status DC Sodium Chloride (Normal Saline Flush) 10 ml 1X PRN PRN IV AP catheter pack; Start 09/23/16 at 14:30; Stop 09/23/16 at 21:00; Status DC Sodium Chloride (Normal Saline Flush) 10 ml 1X PRN PRN IV LIMITED RADIOLOGY TECHNICIAN catheter pack; Start 09/23/16 at 14:30; Stop 09/23/16 at 21:00; Status DC Info (PHARMACY MONITORING -- do not chart) 1 each PRN DAILY PRN MC SEE COMMENTS ; Start 09/23/16 at 14:30; Status UNV Info (PHARMACY MONITORING -- do not chart) 1 each PRN DAILY PRN MC SEE COMMENTS ; Start 09/23/16 at 14:30; Status UNV Warfarin Sodium (Coumadin) 3 mg 1X ONCE PO Last administered on 09/23/16 17:34 ; Start 09/23/16 at 17:00; Stop 09/23/16 at 17:01; Status DC Active Scripts Active Reported [Mylanta] Tylenol (Acetaminophen) 325 Mg Tablet 1 Tab PO PRN Q4HRS Fleet Enema (Na Phos,M-B/Na Phos,Di-Ba) 133 Ml Enema 1 Each RC ONCE Dulcolax (Bisacodyl) 10 Mg Supp.rect 10 Mg RC PRN DAILY PRN Zofran Odt (Ondansetron) 8 Mg Tab.rapdis 1 Tab PO PRN Q8HRS PRN Nitrostat (Nitroglycerin) 0.4 Mg Tab.subl 1 Tab SL UD Cyclobenzaprine Hcl 10 Mg Tablet 1 Tab PO TID Zepatier 50-100 mg Tablet (Elbasvir/Grazoprevir) 1 Each Tablet 1 Each PO [PhosLo] Coreg (Carvedilol) 25 Mg Tablet 1 Tab PO BID Aspirin 81 Mg Tab.chew 1 Tab PO DAILY Allopurinol 100 Mg Tablet 1 Tab PO DAILY Ventolin Hfa Inhaler (Albuterol Sulfate) 18 Gm Hfa.aer.ad 2 Puff INH Q4HRS Nephplex Rx Tablet (Vit B Cmplx No3/Fa/C/Biot/Zinc) 1 Each Tablet 1 Each PO Senokot (Sennosides) 8.6 Mg Tablet 1 Tab PO BID Oxycontin (Oxycodone HCl) 10 Mg Tab.er.12h 10 Mg PO BID Glycolax (Polyethylene Glycol 3350) 119 Gm Powder 17 Gm PO UD Percocet 10-325 Mg Tablet (Oxycodone/Acetaminophen) 1 Each Tablet 1 Tab PO Q4- 6HRS Vitamin D3 (Cholecalciferol (Vitamin D3)) 1,000 Unit Tablet 1 Tab PO DAILY Advair 250-50 Diskus (Fluticasone/Salmeterol) 1 Each Disk.w.dev 1 Puff IH BID Ipratropium Rillito 0.2 Mg/1 Ml Solution 1 Vial NEB QID Lidoderm (Lidocaine) 700 Mg Adh..patch 1 Patch TP DAILY Nortriptyline Hcl 25 Mg Capsule 1 Cap PO QHS Ciprofloxacin Hcl 250 Mg Tablet 1 Tab PO BID Warfarin Sodium 2 Mg Tablet 1.5 Mg PO DAILY Gabapentin 300 Mg Capsule 300 Mg PO TID Zoloft (Sertraline Hcl) 100 Mg Tablet 1 Tab PO DAILY Vitals/I & O Vital Sign - Last 24 Hours 09/23/16 09/23/16 09/23/16 09/23/16 11:41 17:35 17:56 19:00 Temp 98.4 98.4 Pulse 80 79 Resp 20 B/P 147/84 152/70 Pulse Ox 98 99 O2 Delivery Room Air Room Air Room Air 09/23/16 09/23/16 09/23/16 09/24/16 20:00 20:41 23:00 00:41 Temp 98.0 98.0 Pulse 83 Resp 20 B/P 134/74 Pulse Ox 93 O2 Delivery Room Air Room Air Room Air Room Air 09/24/16 09/24/16 09/24/16 09/24/16 01:37 03:00 07:00 08:00 Temp 98.2 98.3 98.2 98.3 Pulse 83 75 Resp 20 17 B/P 156/78 151/66 Pulse Ox 98 98 O2 Delivery Room Air Room Air Room Air Room Air 09/24/16 09/24/16 09/24/16 09/24/16 08:14 08:14 08:14 09:50 Pulse 75 B/P 151/66 O2 Delivery Room Air Room Air Room Air Intake and Output 09/23/16 09/23/16 09/24/16 15:00 23:00 07:00 Intake Total 300 ml 600 ml Output Total 25 ml 300 ml Balance -25 ml 300 ml 300 ml MELITA HEIN MD Sep 24, 2016 10:48
--- NOTE | 2016-09-24 10:49 | PDOC ---
Infectious Disease Note Vital Sign Vital Signs Vital Signs Date Time Temp Pulse Resp B/P Pulse Ox O2 Delivery O2 Flow Rate FiO2 09/24/16 09:50 Room Air 09/24/16 08:14 75 151/66 09/24/16 07:00 98.3 17 98 98.3 Labs Lab Laboratory Tests Test 09/24/16 03:50 Prothrombin Time 18.0SEC (11.7-14.0) Prothromb Time International Ratio 1.6 (0.8-1.1) Objective Assessment ? Diskitis L 1-2, chronic back pain, had back surgery last year GI bleed ESRD on HD HTN Plan Plan of Care BC x 2 disk aspirate for bacterial, fungal and afb stain and culture No antibiotics till then DINESH MCINTYRE MD Sep 24, 2016 10:49
--- NOTE | 2016-09-24 12:11 | PDOC ---
Subjective: Subjective: No GI complaints. Objective: Objective: Per RN - no GI issues, no bleeding. Going for IR procedure. 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 Will follow. JORGE YANG Sep 24, 2016 12:11
[2016-09-24] MEDS ORDERED: LIDOCAINE 1% / SOD BICARB 8.4% 20 ML VIAL. IJ ONE ×2 (14:59→16:15)
[2016-09-24] MEDS ORDERED: FENTANYL PF 100 MCG/2 ML VIAL. ONE (15:05)
[2016-09-24] MEDS ORDERED: MIDAZOLAM HCL 2 MG/2 ML VIAL. ONE (15:05)
--- NOTE | 2016-09-24 16:12 | PDOC ---
MODERATE SEDATION ASSESSMENT RISKS/ALTERNATIVES Risks/Alternatives Risks and alternatives of this type of sedation and procedure discussed with: RISK/ALTERNATIVES: Patient H & P ON CHART H & P H & P on chart and reviewed for co-morbid conditions and appropriate labs. H&P ON CHART: Yes STATUS PREG STATUS ASSESSED: N/A MEDS/ALLERGIES REVIEWED Meds/Allergies Reviewed Medications and Allergies including time and route of recently administered narcotics and sedatives. MEDS/ALLERGIES REVIEWED: Yes ASA RATING ASA RATING: III AIRWAY ASSESSMENT Airway Assessment Airway patency, oral function limitations, presence of caps, crowns, dentures, partials, and ability to extend neck assessed. AIRWAY ASSESSMENT: Yes MALLAMPATI SCORE MALLAMPATI SCORE: III PRE-SEDATION ASSESSMENT PRE-SEDATION ASSESSMENT: Yes PANDA JOYA MD Sep 24, 2016 16:12
[2016-09-24] MEDS ORDERED: FENTANYL PF 100 MCG/2 ML VIAL. IV ONE (16:15)
[2016-09-24] MEDS ORDERED: MIDAZOLAM HCL 2 MG/2 ML VIAL. IV ONE (16:15)
--- NOTE | 2016-09-24 16:18 | PDOC ---
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 of infectious spondylitis at L1-2 Post-Procedure Diagnosis Post-Procedure Diagnosis Same Procedure Performed Procedure Performed Ct guided L1-2 disc space aspirate/bx Type of Anesthesia Type of Anesthesia Local + Mod sedation Estimated Blood Loss EBL: Minimal Specimens Specimans Small amount of aspirated fluid + small core of disc and/or bone---to micro for bacterial, AFB and fungal culture Condition of Patient Condition of Patient Stable. No apparent complication Disposition Disposition From IR/CT return to [facility] for recovery. F/U with ID. Full report to follow. PANDA JOYA MD Sep 24, 2016 16:18
[2016-09-24] MEDS ORDERED: WARFARIN 2 MG TABLET. PO ONE (17:00)
--- NOTE | 2016-09-24 17:45 | PDOC ---
SUBJECTIVE ROS ESRD doing OK overall CVS: no Orthopnea, no CP RESP: no SOB, no CASAS GI: no Nausea, no Vomiting : no Dysuria, no Urgency OBJECTIVE Vital Signs Vital Signs Date Time Temp Pulse Resp B/P Pulse Ox O2 Delivery O2 Flow Rate FiO2 09/24/16 17:17 Room Air 09/24/16 16:36 72 141/62 09/24/16 16:15 12 100 2.0 09/24/16 15:00 98.5 98.5 I & 0 Intake and Output 09/24/16 07:00 Intake Total 900 ml Output Total 325 ml Balance 575 ml Intake Oral 900 ml Output Urine Total 325 ml # Voids 2 # Bowel Movements 1 PHYSICAL EXAM Physical Exam GEN: Awake, Oriented x 3, In no distress EYES: Vision Unchanged, Conjunctiva Normal EN: No EN Drainage, Mucous Membranes moist NECK: no JVD, no JVP, Supple, no Thyromegaly CVS: S1S2, soft Murmur, No Gallop, No Rub,no Edema RESP: no Rales, no Rhonchi,no Acc. Muscle Use GI: BS + ve, NO Bruit, Non Tender, Non Distended : no CVA tenderness, no Suprapubic Tenderness DIAGNOSIS/ASSESSMENT Assessment & Plan ESRD: Current fluid and E-lyte status does not necessitate emergent need for dialysis. Will re-evaluate for dialysis in the am and continue on MWF schedule. ANEMIA; Aranesp as ordered, Transfuse with next HD as needed HTN: Current BP meds as reviewed. See orders for changes. BONE & MINERAL: follow PHos and alter binder regimen as needed HD Access - check US for AVF patency and flow Discussed Plan of Care with pt at bedside Problems: COMMENT/RELEVANT DATA Meds Current Medications Medications (Trade) Dose Ordered Sig/César Start Time Stop Time Status Last Admin Dose Admin Acetaminophen (Tylenol) 500 mg 1X PRN PRN 09/20/16 07:45 09/20/16 18:00 DC Albumin Human (Albuminar) 200 ml @ 200 mls/hr 1X PRN PRN 09/20/16 07:45 09/20/16 14:00 DC Albuterol Sulfate 2.5 mg 2.5 mg PRN Q4HRS PRN 09/09/16 23:30 Albuterol/ Ipratropium (Duoneb) 3 ml RTQID 09/10/16 08:00 09/23/16 11:40 3 ML Allopurinol (Zyloprim) 100 mg DAILY 09/10/16 09:00 09/24/16 08:13 100 MG Bisacodyl (Dulcolax Supp) 10 mg PRN DAILY PRN 09/09/16 23:30 Budesonide (Pulmicort) 0.5 mg RTBID 09/10/16 08:00 09/23/16 07:44 0.5 MG Bupivacaine HCl (Sensorcaine-Mpf 0.25%) 10 ml 1X ONCE 09/20/16 17:30 09/20/16 17:33 DC Carvedilol (Coreg) 25 mg BIDWMEALS 09/10/16 08:00 09/24/16 16:36 25 MG Cyclobenzaprine HCl (Flexeril) 10 mg PRN TID PRN 09/09/16 23:30 09/21/16 15:14 10 MG Darbepoetin Ernst (Aranesp) 60 mcg WEEKLYHS 09/16/16 21:00 09/23/16 20:43 60 MCG Dextrose 25 gm 25 gm STK-MED ONCE 09/18/16 08:19 09/18/16 08:20 DC 09/18/16 08:19 25 GM Diphenhydramine HCl (Benadryl) 25 mg 1X PRN PRN 09/20/16 07:45 09/20/16 18:00 DC Fentanyl Citrate (Fentanyl 2ml Vial) 100 mcg 1X ONCE 09/24/16 16:15 09/24/16 16:16 DC 09/24/16 16:15 100 MCG Fentanyl Citrate 50 mcg 50 mcg PRN Q5MIN PRN 09/18/16 07:00 09/19/16 06:59 DC Gabapentin (Neurontin) 300 mg DAILY 09/10/16 09:00 09/24/16 08:14 300 MG Haloperidol Lactate (Haldol) 2.5 mg PRN Q6HRS PRN 09/12/16 14:15 Hydromorphone HCl (Dilaudid) 1 mg 1X ONCE 09/09/16 19:15 09/09/16 19:16 DC 09/09/16 19:21 1 MG Info (PHARMACY MONITORING -- do not chart) 1 each PRN DAILY PRN 09/23/16 14:30 UNV Info 1 each 1 each PRN DAILY PRN 09/18/16 14:00 UNV Ipratropium [place] (Atrovent) 0.2 mg QID 09/10/16 09:00 UNV Labetalol HCl (Normodyne) 10 mg PRN Q1HR PRN 09/20/16 07:45 09/20/16 18:00 DC Lactated Ringer's (Iv Lactated Ringers) 1,000 ml @ 0 mls/hr Q0M 09/18/16 07:00 09/18/16 18:59 DC Lidocaine (Lidoderm) 1 patch DAILY 09/10/16 09:00 09/24/16 08:13 1 PATCH Lidocaine HCl (Lidocaine Pf 2% Vial) 5 ml STK-MED ONCE 09/18/16 11:13 09/18/16 11:14 DC Lidocaine/Sodium Bicarbonate (Buffered Lidocaine 1%) 20 ml 1X ONCE 09/24/16 16:15 09/24/16 16:16 DC 09/24/16 16:13 20 ML Lorazepam (Ativan) 2 mg PRN Q4HRS PRN 09/12/16 14:30 09/17/16 14:37 DC Magnesium Sulfate/ Dextrose (Magnesium Sulfate PREMIX 2GM) 50 ml @ 25 mls/hr 1X ONCE 09/12/16 11:30 09/12/16 13:29 DC Methylprednisolone Acetate (Depo-Medrol 40mg Vial) 40 mg 1X ONCE 09/20/16 17:30 09/20/16 17:33 DC Methylprednisolone Acetate (Depo-Medrol 80mg Vial) 80 mg 1X ONCE 09/20/16 17:30 09/20/16 17:33 DC Midazolam HCl (Versed) 2 mg 1X ONCE 09/24/16 16:15 09/24/16 16:16 DC 09/24/16 16:14 2 MG Multi-Ingredient Mouthwash/Gargle 15 ml 15 ml 1X ONCE 09/09/16 23:30 09/09/16 23:31 DC 09/09/16 23:41 15 ML Non-Formulary Medication 1 puff BID 09/10/16 09:00 UNV Nortriptyline HCl (Pamelor) 25 mg QHS 09/10/16 21:00 09/23/16 20:41 25 MG Ondansetron HCl (Zofran Odt) 8 mg Q8HRS 09/10/16 06:00 09/21/16 05:53 8 MG Ondansetron HCl (Zofran) 4 mg PRN Q8HRS PRN 09/09/16 19:30 09/10/16 19:29 DC 09/09/16 19:51 4 MG Oxycodone HCl (Oxycontin) 10 mg BID 09/10/16 09:00 09/24/16 08:14 10 MG Oxycodone/ Acetaminophen (Percocet 10/325) 1 tab PRN Q4HRS PRN 09/09/16 23:30 09/24/16 14:23 1 TAB Oxycodone/ Acetaminophen (Percocet 5/325) 1 tab 1X ONCE 09/09/16 19:00 09/09/16 19:01 DC Pantoprazole Sodium (Protonix Vial) 40 mg DAILYAC 09/13/16 13:00 09/17/16 10:02 DC 09/16/16 05:57 40 MG Pantoprazole Sodium (Protonix) 40 mg DAILYAC 09/17/16 10:02 09/24/16 08:13 40 MG Pantoprazole Sodium 40 mg 40 mg DAILYAC 09/13/16 07:30 UNV Pantoprazole Sodium/Sodium Chloride (Protonix Iv/Iv Sodium Chloride 0.9% 100ml) 100 ml @ 10 mls/hr Q10H 09/10/16 10:00 09/13/16 09:59 DC 09/13/16 07:51 10 MLS/HR Phytonadione/ Sodium Chloride (Vitamin K/Iv Sodium Chloride 0.9% 50ml) 51 ml @ 102 mls/hr 1X ONCE 09/10/16 00:00 09/10/16 00:29 DC 09/10/16 02:07 102 MLS/HR Prochlorperazine Edisylate (Compazine) 5 mg PACU PRN PRN 09/18/16 07:00 09/19/16 06:59 DC Propofol (Diprivan) 20 ml @ As Directed STK-MED ONCE 09/18/16 11:13 09/18/16 11:14 DC Sertraline HCl (Zoloft) 100 mg DAILY 09/10/16 09:00 09/24/16 08:13 100 MG Sodium Chloride (Iv Sodium Chloride 0.9% 1000ml Bag) 1,000 ml @ 1,000 mls/hr Q1H PRN 09/23/16 14:18 09/23/16 21:00 DC Sodium Chloride (Normal Saline Flush) 10 ml 1X PRN PRN 09/23/16 14:30 09/23/16 21:00 DC Sodium Cl/Sod Bicarb/Potass Cl/ PEG (Golytely) 4,000 ml 1X ONCE 09/11/16 13:00 09/11/16 13:01 DC 09/11/16 17:13 4,000 ML Warfarin Sodium (Coumadin Per Pharmacy) 1 each PRN DAILY PRN 09/20/16 14:30 09/24/16 16:11 1 EACH Warfarin Sodium (Coumadin) 2 mg 1X ONCE 09/24/16 17:00 09/24/16 17:01 DC 09/24/16 16:35 2 MG Warfarin Sodium 3 mg 3 mg 1X WARF ONCE 09/22/16 16:00 09/22/16 16:01 DC 09/22/16 17:28 3 MG Lab Laboratory Tests Test 09/24/16 03:50 Prothrombin Time 18.0SEC (11.7-14.0) Prothromb Time International Ratio 1.6 (0.8-1.1) HERMELINDA MCINTYRE MD Sep 24, 2016 17:45
[2016-09-24] MEDS: NORTRIPTYLINE 25 MG CAPSULE PO SCH (21:37)
[2016-09-25 03:00] VITALS: BP 183/79
[2016-09-25] MEDS: OXYCODONE/APAP 10/325 TABLET. PO PRN ×3 (03:46→23:00)
[2016-09-25 05:39] VITALS: BP 179/92
--- NOTE | 2016-09-25 05:44 | CONS ---
DATE OF CONSULTATION: 09/24/2016 REQUESTING PHYSICIAN: Dr. Rahat Navarro and Dr. Rodrigues. REASON FOR CONSULTATION: Possible diskitis. HISTORY OF PRESENT ILLNESS: This is a 61-year-old -[place]el[place] female with history of end-stage renal disease, who came in with GI bleed and underwent workup for that and now she is found to have possible diskitis. Evidently, the patient has been having back pain for several years, but more so since last year. She has had back surgery done and since then it is actually more worse. The patient says she is also nonambulatory since last year. She was at ____ for 3 months in the hospital. The patient denies any fever before coming in or during the hospitalization. Denies any fever, chills, night sweats, nausea, vomiting or diarrhea. The patient denies any radiation of pain. The patient did have MRI of the spine done, which showed possible L1-L2 diskitis. The patient denies any problems with incontinence. PAST MEDICAL HISTORY: Positive for end-stage renal disease on hemodialysis. The patient has osteoarthritis to the left weak knee, has history of DVT, atrial fibrillation, congestive heart failure, hypertension, asthma, diabetes. The patient ____ she did have a coag-negative staph bacteremia and also back surgery done last year. SOCIAL HISTORY: Negative for smoking, alcohol, illicit drug use. ALLERGIES: LISTED ALLERGIC TO ERYTHROMYCIN. CURRENT MEDICATIONS: Reviewed. The patient is not on any antibiotics. REVIEW OF SYSTEMS: As per HPI, all other systems reviewed are negative. PHYSICAL EXAMINATION: GENERAL: Alert, oriented female, not in any distress. VITAL SIGNS: Stable, afebrile. HEENT: NAD. NECK: Supple, no JVP, no lymphadenopathy. LUNGS: Clear. HEART: S1, S2 regular. ABDOMEN: Benign. EXTREMITIES: No edema, cyanosis. SKIN: Unremarkable. Incision in the back has a very well-healed scar. There is no induration or tenderness. NEUROLOGIC: The patient is neurologically intact. LABORATORY DATA: White count is 8.7. Sed rate is 92, BUN 37, creatinine 4.0. MRSA screen negative. MRI of the lumbar spine showed loss of intervertebral disk material with fluid signal at L1-L2, L2-L3 and L3-L4 with some bony endplate edema at L1-L2 suggesting possible diskitis. IMPRESSION: 1. Chronic back pain, rule out diskitis. 2. Gastrointestinal bleed. 3. End-stage renal disease, on hemodialysis. 4. Hypertension. 5. Diabetes. RECOMMENDATIONS: We will do blood culture. We will also get Radiology to do disk aspiration for bacterial, fungal and AFB stain and culture. No antibiotics until then. Supportive care. Discussion with Dr. Rodrigues done. Thank you very much, Dr. Rodrigues, for giving me the opportunity to participate in this patient's care. IDNESH MCINTYRE MD DR: KORI/leah JOB#: [id number] / [id number]
[2016-09-25] MEDS: LABETALOL 20 MG/4 ML DISP.SYRIN. IVP PRN (05:47)
[2016-09-25] MEDS: ONDANSETRON ODT 4 MG TAB.RAPDIS PO SCH ×3 (06:00→21:11)
[2016-09-25 06:28] LABS: INR 1.5 (0.8-1.1); PROTHROMBIN TIME PATIENT 17.3 SEC (11.7-14.0)
[2016-09-25 07:00] VITALS: BP 148/81
--- NOTE | 2016-09-25 07:16 | RAD ---
CT-guided aspiration/biopsy of L1/2 intervertebral disc space Indication: 61-year-old female with severe low back pain, with elevated ESR, and with MRI findings raising the question of infectious spondylitis at L1-2. Image guided disc space aspiration has been requested. Anesthesia: 27 minutes moderate sedation was provided utilizing a total of 2 mg Versed and 100 mcg fentanyl, IV. The patient was appropriately monitored by a qualified independent observer throughout the time of moderate sedation. PQRS Compliance Statement: One or more of the following individualized dose reduction techniques was/were utilized for this CT examination or procedure: 1. Automated exposure control. 2. Adjustment of mA and/or kV according to patient size. 3. Iterative reconstruction technique. Procedure: Informed consent was obtained from the patient. She was placed prone on the CT scanner. Preliminary noncontrast CT images were obtained through lumbar spine. Sagittal reconstructions were utilized to localize the L1-2 intervertebral disc space. An overlying right posterior skin site suitable for CT-guided aspiration at L1-2 was selected and marked. That area was prepped and draped in the usual sterile fashion. Moderate sedation was provided with IV Versed and fentanyl. Using aseptic technique, local anesthesia, and CT guidance, a 10-gauge needle was successfully introduced into right lateral aspect of the L1-2 disc space. A small sample of complex fluid was aspirated. A core biopsy sample was then obtained, which was productive of only a small fragment of tissue, which macroscopically could represent residual disc material or L2 superior endplate bony fragment. The fluid and tissue fragments was submitted to microbiology and a sterile container for bacterial, fungal, and AFB cultures. The needle was removed and a sterile dressing was applied. Patient tolerated the procedure well without apparent complication. Impression: Uneventful CT-guided needle aspiration/biopsy of the L1-2 intervertebral disc space, as described.
[2016-09-25] MEDS: PANTOPRAZOLE 40 MG TABLET. PO SCH (07:30)
[2016-09-25] MEDS: CARVEDILOL 12.5 MG TABLET PO SCH ×2 (08:00→16:00)
[2016-09-25] MEDS: BUDESONIDE 0.5 MG/2 ML NEBU NEB SCH ×2 (08:00→20:00)
[2016-09-25] MEDS: IPRATRPIUM/ALBUTEROL 0.5/2.5MG 3 ML NEBU. NEB SCH ×4 (08:00→20:00)
[2016-09-25] MEDS ORDERED: IV NORMAL SALINE 1000ML BAG 1,000 ML IV PRN (08:38)
[2016-09-25] MEDS ORDERED: ACETAMINOPHEN 500 MG TABLET PO PRN (08:45)
[2016-09-25] MEDS ORDERED: DIALYSIS PATIENT. MC PRN (08:45)
[2016-09-25] MEDS ORDERED: DIPHENHYDRAMINE 50 MG/ML VIAL IV PRN (08:45)
[2016-09-25] MEDS ORDERED: ALBUMIN HUMAN 25% 200 ML IV PRN (08:45)
[2016-09-25] MEDS: GABAPENTIN 300 MG CAPSULE. PO SCH (09:00)
[2016-09-25] MEDS: ALLOPURINOL 100 MG TABLET. PO SCH (09:00)
[2016-09-25] MEDS: SERTRALINE 50 MG TABLET. PO SCH (09:00)
--- NOTE | 2016-09-25 09:15 | PDOC ---
Infectious Disease Note Subjective Subjective feeling better ROS ROS GEN: Denies fevers, chills, sweats HEENT: Denies blurred vision, sore throat CV: Denies chest pain RESP: Denies shortness of air, cough GI: Denies n/v/d NEURO: Denies confusion, dizziness MSK: Denies weakness, joint pain/swelling Vital Sign Vital Signs Vital Signs Date Time Temp Pulse Resp B/P Pulse Ox O2 Delivery O2 Flow Rate FiO2 09/25/16 07:00 97.8 77 16 148/81 Room Air 97.0 97.8 09/25/16 07:00 97 Physical Exam PHYSICAL EXAM GENERAL: NAD, Alert HEENT: PERRL, OC/OP NECK: Supple, no JVD, no LN LUNGS: Clear HEART: S1S2, no gallop, no murmur ABD: Soft, NT, no organomegaly, no rebound EXT: No edema, no cyanosis [employer]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 Diskitis L 1-2, chronic back pain, had back surgery last year GI bleed ESRD on HD HTN Plan Plan of Care BC x 2 disk aspirate for bacterial, fungal and afb stain and culture, done DINESH Espinosa MD Sep 25, 2016 09:14
--- NOTE | 2016-09-25 09:53 | PDOC ---
PROGRESS NOTES Chief Complaint Chief Complaint 1. Acute blood loss anemia, GI bleed, s/p EGD 2. ESRD, on HD MWF 3. Coumadin coagulopathy, 4. Hypertension, comtrolled 5. Asthma, hx 6. Obesity 7. Back pain 8. A fib on coumadin 9. [facility] resident 10. RCC vs renal complex cyst - NEW 11. Discsitis vs OM - back -NEW History of Present Illness History of Present Illness Out having HD, no acute issues per RN S/p IR back procedure yesterday Studies pending Incidenatl RCC vs complex renal mass - urology has not seen pt yet CT: IMPRESSION 1. Marked discogenic disease with loss of intervertebral disc material and fluid signal at L1-L2, L2-L3 and L3-L4. There is bony endplate edema at L1-2 suggesting possible discitis and osteomyelitis. Recommend correlation with sed rate and CBC. If there is clinical in decision MR with contrast may be helpful. 2. 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 There appears to be compression of the intra foraminal course of the exiting nerve roots on the left at L3-L4 and L4-5 and on the right at L3-L4. 3. Complex cyst versus mass seen anteriorly in the right kidney. This is not well evaluated but could be a renal cell carcinoma. 4. Presacral edema is nonspecific and is of uncertain etiology. PLAN: Await back biopsy studies Await urology CPM Vitals Vitals Vital Signs Date Time Temp Pulse Resp B/P Pulse Ox O2 Delivery O2 Flow Rate FiO2 09/25/16 07:00 97.8 77 16 148/81 Room Air 97.0 97.8 09/25/16 07:00 97 Physical Exam General: Alert, Oriented X3, Cooperative, No acute distress Heart: Normal S1, Normal S2 Lungs: Clear Abdomen: Normal bowel sounds, Soft, No tenderness, No hepatosplenomegaly Extremities: No clubbing, No cyanosis, Other (back, no spinal tenderness. ) Skin: No rashes, No significant lesion, Other Labs LABS Laboratory Tests Test 09/25/16 05:10 Prothrombin Time 17.3SEC (11.7-14.0) Prothromb Time International Ratio 1.5 (0.8-1.1) Review of Systems Review of Systems back pain, rt knee pain Assessment and Plan Assessmemt and Plan Problems Medical Problems: (1) Anemia Status: Acute (2) Coagulopathy Status: Acute (3) Coumadin toxicity Status: Acute (4) Elevated INR (international normalized ratio) due to prior anticoagulant medication ingestion Status: Acute (5) ESRD on dialysis Status: Acute (6) GI bleed Status: Acute Problems: Comment Review of Relevant I have reviewed the following items christi (where applicable) has been applied. Labs Laboratory Tests Test 09/24/16 03:50 09/25/16 05:10 Prothrombin Time 18.0SEC (11.7-14.0) 17.3SEC (11.7-14.0) Prothromb Time International Ratio 1.6 (0.8-1.1) 1.5 (0.8-1.1) Laboratory Tests Test 09/25/16 05:10 Prothrombin Time 17.3SEC (11.7-14.0) Prothromb Time International Ratio 1.5 (0.8-1.1) Medications Current Medications Oxycodone/ Acetaminophen (Percocet 5/325) 1 tab 1X ONCE PO ; Start 09/09/16 at 19:00; Stop 09/09/16 at 19:01; Status DC Hydromorphone HCl 1 mg 1 mg 1X ONCE IV Last administered on 09/09/16 19:21; Start 09/09/16 at 19:15; Stop 09/09/16 at 19:16; Status DC Pantoprazole Sodium/Sodium Chloride (Protonix Iv/Iv Sodium Chloride 0.9% 100ml) 100 ml @ 10 mls/hr 1X ONCE IV Last administered on 09/09/16 19:51; Start at 19:30; Stop 09/10/16 at 05:29; Status DC Ondansetron HCl 4 mg 4 mg PRN Q8HRS PRN IV NAUSEA/VOMITING Last administered on 09/09/16 19:51; Start 09/09/16 at 19:30; Stop 09/10/16 at 19:29; Status DC Sodium Chloride (Iv Sodium Chloride 0.9% 1000ml Bag) 1,000 ml @ 100 mls/hr Q10H IV Last administered on 09/09/16 19:51; Start 09/09/16 at 19:30; Stop at 06:00; Status DC Acetaminophen (Tylenol) 650 mg PRN Q4HRS PRN PO FEVER Last administered on 09/09 19:52; Start 09/09/16 at 19:30; Stop 09/10/16 at 19:29; Status DC Multi-Ingredient Mouthwash/Gargle 15 ml 15 ml 1X ONCE SWSW Last administered on 09/09/16 23:41; Start 09/09/16 at 23:30; Stop 09/09/16 at 23:31; Status DC Phytonadione/ Sodium Chloride (Vitamin K/Iv Sodium Chloride 0.9% 50ml) 51 ml @ 102 mls/hr 1X ONCE IV Last administered on 09/10/16 02:07; Start 09/10/16 at 00:00; Stop 09/10/16 at 00:29; Status DC Acetaminophen (Tylenol) 325 mg PRN Q4HRS PO ; Start 09/09/16 at 23:30; Stop at 23:30; Status DC Allopurinol (Zyloprim) 100 mg DAILY PO Last administered on 09/24/16 08:13; Start 09/10/16 at 09:00 Bisacodyl (Dulcolax Supp) 10 mg PRN DAILY PRN RC CONSTIPATION; Start 09/09/16 at 23:30 Cyclobenzaprine HCl (Flexeril) 10 mg PRN TID PRN PO back pain Last administered on 09/21/16 15:14; Start 09/09/16 at 23:30 Gabapentin (Neurontin) 300 mg DAILY PO Last administered on 09/24/16 08:14; Start 09/10/16 at 09:[address] [employer] (Atrovent) 0.2 mg QID NEB ; Start 09/10/16 at 09:00; Status UNV Lidocaine (Lidoderm) 1 patch DAILY TP Last administered on 09/24/16 08:13; Start 09/10/16 at 09:00 Nortriptyline HCl (Pamelor) 25 mg QHS PO Last administered on 09/24/16 21:37; Start 09/10/16 at 21:00 Oxycodone HCl (Oxycontin) 10 mg BID PO Last administered on 09/24/16 21:38; Start 09/10/16 at 09:00 Oxycodone/ Acetaminophen (Percocet 10/325) 1 tab PRN Q4HRS PRN PO SEVERE PAIN Last administered on 09/25/16 03:46; Start 09/09/16 at 23:30 Non-Formulary Medication 2 puff Q4HRS INH FOR ASTHMA; Start 09/10/16 at 00:00; Status UNV Carvedilol (Coreg) 25 mg BIDWMEALS PO Last administered on 09/24/16 16:36; Start 09/10/16 at 08:00 Non-Formulary Medication 1 puff BID IH ; Start 09/10/16 at 09:00; Status UNV Ondansetron HCl (Zofran Odt) 8 mg Q8HRS PO Last administered on 09/21/16 05:53 ; Start 09/10/16 at 06:00 Sertraline HCl (Zoloft) 100 mg DAILY PO Last administered on 09/24/16 08:13; Start 09/10/16 at 09:00 Labetalol HCl (Normodyne) 20 mg PRN Q2HR PRN IVP HYPERTENSION, SEE COMMENTS Last administered on 09/25/16 05:47; Start 09/09/16 at 23:30 Albuterol/ Ipratropium (Duoneb) 3 ml RTQID NEB Last administered on 09/23/16 11 :40; Start 09/10/16 at 08:00 Budesonide (Pulmicort) 0.5 mg RTBID NEB Last administered on 09/23/16 07:44; Start 09/10/16 at 08:00 Albuterol Sulfate 2.5 mg 2.5 mg PRN Q4HRS PRN NEB SHORTNESS OF BREATH; Start at 23:30 Pantoprazole Sodium 80 mg/ Sodium Chloride 100 ml @ 10 mls/hr Q10H IV Last administered on 09/13/16 07:51; Start 09/10/16 at 10:00; Stop 09/13/16 at 09:59 ; Status DC Magnesium Sulfate/ Dextrose 50 ml @ 25 mls/hr PRN DAILY PRN IV for Mag < 1.7 on am labs; Start 09/10/16 at 10:00; Stop 09/22/16 at 11:36; Status DC Sodium Chloride (Iv Sodium Chloride 0.9% 1000ml Bag) 1,000 ml @ 1,000 mls/hr Q1H PRN IV hypotension; Start 09/11/16 at 08:50; Stop 09/11/16 at 14:49; Status DC Diphenhydramine HCl (Benadryl) 25 mg 1X PRN PRN IV ITCHING; Start 09/11/16 at 09:00; Stop 09/12/16 at 08:59; Status DC Diphenhydramine HCl (Benadryl) 25 mg 1X PRN PRN IV ITCHING; Start 09/11/16 at 09:00; Stop 09/12/16 at 08:59; Status DC Sodium Chloride (Normal Saline Flush) 10 ml 1X PRN PRN IV AP catheter pack; Start 09/11/16 at 09:00; Stop 09/12/16 at 08:59; Status DC Sodium Chloride (Normal Saline Flush) 10 ml 1X PRN PRN IV [employer] INS[employer]OR catheter pack; Start 09/11/16 at 09:00; Stop 09/12/16 at 08:59; Status DC Labetalol HCl 10 mg 10 mg PRN Q1HR PRN IVP SBP > 180; Start 09/11/16 at 09:00; Stop 09/12/16 at 08:59; Status DC Sodium Chloride (Iv Sodium Chloride 0.9% 1000ml Bag) 1,000 ml @ 400 mls/hr Q2H30M PRN IV PATENCY; Start 09/11/16 at 08:50; Stop 09/11/16 at 20:49; Status DC Info (PHARMACY MONITORING -- do not chart) 1 each PRN DAILY PRN MC SEE COMMENTS ; Start 09/11/16 at 09:00 Info (PHARMACY MONITORING -- do not chart) 1 each PRN DAILY PRN MC SEE COMMENTS ; Start 09/11/16 at 09:00; Status UNV Sodium Cl/Sod Bicarb/Potass Cl/ PEG (Golytely) 4,000 ml 1X ONCE PO Last administered on 09/11/16t 17:13; Start 09/11/16 at 13:00; Stop 09/11/16 at 13:01 ; Status DC Fentanyl Citrate (Fentanyl 2ml Vial) 25 mcg PRN Q5MIN PRN IV MILD PAIN; Start 09/12/16 at 07:00; Stop 09/13/16 at 06:59; Status DC Fentanyl Citrate 50 mcg 50 mcg PRN Q5MIN PRN IV MODERATE PAIN; Start 09/12/16 at 07:00; Stop 09/13/16 at 06:59; Status DC Lactated Ringer's (Iv Lactated Ringers) 1,000 ml @ 0 mls/hr Q0M IV ; Start at 07:00; Stop 09/12/16 at 18:59; Status DC Lidocaine HCl 2 ml 1X PRN PRN ID IV START; Start 09/12/16 at 07:00; Stop at 06:59; Status DC Prochlorperazine Edisylate (Compazine) 5 mg PACU PRN PRN IV NAUSEA; Start 09/12 at 07:00; Stop 09/13/16 at 06:59; Status DC Pantoprazole Sodium 40 mg 40 mg DAILYAC IVP ; Start 09/13/16 at 07:30; Status UNV Magnesium Sulfate/ Dextrose 50 ml @ 25 mls/hr 1X ONCE IV ; Start 09/12/16 at 11 :30; Stop 09/12/16 at 13:29; Status DC Propofol 0 ml @ As Directed STK-MED ONCE IV ; Start 09/12/16 at 12:55; Stop at 12:56; Status DC Propofol (Diprivan) 20 ml @ As Directed STK-MED ONCE IV ; Start 09/12/16 at 12: 55; Stop 09/12/16 at 12:56; Status Cancel Lidocaine HCl (Lidocaine Pf 2% Vial) 5 ml STK-MED ONCE .ROUTE ; Start 09/12/16 at 12:55; Stop 09/12/16 at 12:56; Status DC Lorazepam (Ativan) 2 mg PRN Q4HRS PRN IV ANXIETY / AGITATION; Start 09/12/16 at 14:15 Lorazepam (Ativan) 2 mg Q4HRS PRN IV ANXIETY / AGITATION; Start 09/12/16 at 14: 15; Status UNV Haloperidol Lactate (Haldol) 2.5 mg PRN Q6HRS PRN IM AGITATION; Start 09/12/16 at 14:15 Haloperidol Lactate (Haldol) 2.5 mg PRN Q6HRS PRN IVP AGITATION; Start at 14:15 Lorazepam 2 mg 2 mg PRN Q4HRS PRN IM ANXIETY / AGITATION; Start 09/12/16 at 14: 30; Stop 09/17/16 at 14:37; Status DC Sodium Chloride (Iv Sodium Chloride 0.9% 1000ml Bag) 1,000 ml @ 1,000 mls/hr Q1H PRN IV hypotension; Start 09/13/16 at 08:39; Stop 09/13/16 at 14:38; Status DC Diphenhydramine HCl (Benadryl) 25 mg 1X PRN PRN IV ITCHING; Start 09/13/16 at 08:45; Stop 09/14/16 at 08:44; Status DC Diphenhydramine HCl (Benadryl) 25 mg 1X PRN PRN IV ITCHING; Start 09/13/16 at 08:45; Stop 09/14/16 at 08:44; Status DC Sodium Chloride (Normal Saline Flush) 10 ml 1X PRN PRN IV AP catheter pack; Start 09/13/16 at 08:45; Stop 09/14/16 at 08:44; Status DC Sodium Chloride (Normal Saline Flush) 10 ml 1X PRN PRN IV [employer]OR catheter pack; Start 09/13/16 at 08:45; Stop 09/14/16 at 08:44; Status DC Labetalol HCl (Normodyne) 10 mg PRN Q1HR PRN IVP SBP > 180; Start 09/13/16 at 08:45; Stop 09/14/16 at 08:44; Status DC Info (PHARMACY MONITORING -- do not chart) 1 each PRN DAILY PRN MC SEE COMMENTS ; Start 09/13/16 at 08:45; Status UNV Info (PHARMACY MONITORING -- do not chart) 1 each PRN DAILY PRN MC SEE COMMENTS ; Start 09/13/16 at 08:45; Status UNV Pantoprazole Sodium 40 mg 40 mg DAILYAC IVP Last administered on 09/16/16t 05: 57; Start 09/13/16 at 13:00; Stop 09/17/16 at 10:02; Status DC Sodium Chloride (Iv Sodium Chloride 0.9% 1000ml Bag) 1,000 ml @ 1,000 mls/hr Q1H PRN IV hypotension; Start 09/16/16 at 08:46; Stop 09/16/16 at 14:45; Status DC Diphenhydramine HCl (Benadryl) 25 mg 1X PRN PRN IV ITCHING; Start 09/16/16 at 09:00; Stop 09/17/16 at 08:59; Status DC Diphenhydramine HCl (Benadryl) 25 mg 1X PRN PRN IV ITCHING; Start 09/16/16 at 09:00; Stop 09/17/16 at 08:59; Status DC Sodium Chloride (Normal Saline Flush) 10 ml 1X PRN PRN IV AP catheter pack; Start 09/16/16 at 09:00; Stop 09/17/16 at 08:59; Status DC Sodium Chloride (Normal Saline Flush) 10 ml 1X PRN PRN IV [employer] catheter pack; Start 09/16/16 at 09:00; Stop 09/17/16 at 08:59; Status DC Info (PHARMACY MONITORING -- do not chart) 1 each PRN DAILY PRN MC SEE COMMENTS ; Start 09/16/16 at 09:00; Status UNV Info (PHARMACY MONITORING -- do not chart) 1 each PRN DAILY PRN MC SEE COMMENTS ; Start 09/16/16 at 09:00; Status UNV Darbepoetin Ernst (Aranesp) 60 mcg [id number] SQ Last administered on 09/23/16 20: 43; Start 09/16/16 at 21:00 Pantoprazole Sodium (Protonix) 40 mg DAILYAC PO Last administered on 09/24/16 08:13; Start 09/17/16 at 10:02 Fentanyl Citrate (Fentanyl 2ml Vial) 25 mcg PRN Q5MIN PRN IV MILD PAIN; Start 09/18/16 at 07:00; Stop 09/19/16 at 06:59; Status DC Fentanyl Citrate 50 mcg 50 mcg PRN Q5MIN PRN IV MODERATE PAIN; Start 09/18/16 at 07:00; Stop 09/19/16 at 06:59; Status DC Lactated Ringer's (Iv Lactated Ringers) 1,000 ml @ 0 mls/hr Q0M IV ; Start 09/18 at 07:00; Stop 09/18/16 at 18:59; Status DC Lidocaine HCl 2 ml 1X PRN PRN ID IV START; Start 09/18/16 at 07:00; Stop at 06:59; Status DC Prochlorperazine Edisylate (Compazine) 5 mg PACU PRN PRN IV NAUSEA; Start at 07:00; Stop 09/19/16 at 06:59; Status DC Dextrose 25 gm 25 gm STK-MED ONCE IV Last administered on 09/18/16 08:19; Start 09/18/16 at 08:19; Stop 09/18/16 at 08:20; Status DC Propofol (Diprivan) 20 ml @ As Directed STK-MED ONCE IV ; Start 09/18/16 at 11:13 ; Stop 09/18/16 at 11:14; Status DC Lidocaine HCl 5 ml 5 ml STK-MED ONCE .ROUTE ; Start 09/18/16 at 11:13; Stop at 11:14; Status DC Sodium Chloride 1,000 ml @ 100 mls/hr 1X ONCE IV Last administered on 11:29; Start 09/18/16 at 11:30; Stop 09/18/16 at 21:29; Status DC Sodium Chloride (Iv Sodium Chloride 0.9% 1000ml Bag) 1,000 ml @ 1,000 mls/hr Q1H PRN IV hypotension; Start 09/18/16 at 13:47; Stop 09/18/16 at 19:46; Status DC Acetaminophen (Tylenol) 500 mg 1X PRN PRN PO MILD PAIN / TEMP; Start 09/18/16 at 14:00; Stop 09/19/16 at 13:59; Status DC Diphenhydramine HCl (Benadryl) 25 mg 1X PRN PRN IV ITCHING; Start 09/18/16 at 14 :00; Stop 09/19/16 at 13:59; Status DC Diphenhydramine HCl (Benadryl) 25 mg 1X PRN PRN IV ITCHING; Start 09/18/16 at 14 :00; Stop 09/19/16 at 13:59; Status DC Labetalol HCl 10 mg 10 mg PRN Q1HR PRN IVP SBP > 180; Start 09/18/16 at 14:00; Stop 09/19/16 at 13:59; Status DC Sodium Chloride (Iv Sodium Chloride 0.9% 1000ml Bag) 1,000 ml @ 400 mls/hr Q2H30M PRN IV PATENCY; Start 09/18/16 at 13:47; Stop 09/19/16 at 01:46; Status DC Info 1 each 1 each PRN DAILY PRN MC SEE COMMENTS; Start 09/18/16 at 14:00; Status UNV Sodium Chloride 1,000 ml @ 1,000 mls/hr Q1H PRN IV hypotension; Start 09/20/16 at 07:30; Stop 09/20/16 at 18:00; Status DC Albumin Human (Albuminar) 200 ml @ 200 mls/hr 1X PRN PRN IV Hypotension; Start 09/20/16 at 07:45; Stop 09/20/16 at 14:00; Status DC Acetaminophen (Tylenol) 500 mg 1X PRN PRN PO MILD PAIN / TEMP; Start 09/20/16 at 07:45; Stop 09/20/16 at 18:00; Status DC Diphenhydramine HCl (Benadryl) 25 mg 1X PRN PRN IV ITCHING; Start 09/20/16 at 07 :45; Stop 09/20/16 at 18:00; Status DC Diphenhydramine HCl (Benadryl) 25 mg 1X PRN PRN IV ITCHING; Start 09/20/16 at 07 :45; Stop 09/20/16 at 18:00; Status DC Sodium Chloride (Normal Saline Flush) 10 ml 1X PRN PRN IV AP catheter pack; Start 09/20/16 at 07:45; Stop 09/20/16 at 18:00; Status DC Sodium Chloride (Normal Saline Flush) 10 ml 1X PRN PRN IV [employer]OR catheter pack; Start 09/20/16 at 07:45; Stop 09/20/16 at 18:00; Status DC Labetalol HCl 10 mg 10 mg PRN Q1HR PRN IVP SBP > 180; Start 09/20/16 at 07:45; Stop 09/20/16 at 18:00; Status DC Sodium Chloride (Iv Sodium Chloride 0.9% 1000ml Bag) 1,000 ml @ 400 mls/hr Q2H30M PRN IV PATENCY; Start 09/20/16 at 07:45; Stop 09/20/16 at 18:00; Status DC Info (PHARMACY MONITORING -- do not chart) 1 each PRN DAILY PRN MC SEE COMMENTS ; Start 09/20/16 at 07:45; Status UNV Warfarin Sodium (Coumadin Per Pharmacy) 1 each PRN DAILY PRN MC SEE COMMENTS Last administered on 09/24/16 16:11; Start 09/20/16 at 14:30 Warfarin Sodium (Coumadin) 2 mg 1X WARF ONCE PO Last administered on 09/20/16 17:27; Start 09/20/16 at 17:14; Stop 09/20/16 at 17:15; Status DC Methylprednisolone Acetate (Depo-Medrol 80mg Vial) 80 mg 1X ONCE IM ; Start 09/20/16 at 17:30; Stop 09/20/16 at 17:33; Status DC Methylprednisolone Acetate (Depo-Medrol 40mg Vial) 40 mg 1X ONCE IM ; Start 09/20/16 at 17:30; Stop 09/20/16 at 17:33; Status DC Bupivacaine HCl (Sensorcaine-Mpf 0.25%) 10 ml 1X ONCE IJ ; Start 09/20/16 at 17: 30; Stop 09/20/16 at 17:33; Status DC Warfarin Sodium (Coumadin) 2 mg 1X WARF ONCE PO Last administered on 09/21/16 17:14; Start 09/21/16 at 16:00; Stop 09/21/16 at 16:01; Status DC Warfarin Sodium 3 mg 3 mg 1X WARF ONCE PO Last administered on 09/22/16 17:28 ; Start 09/22/16 at 16:00; Stop 09/22/16 at 16:01; Status DC Sodium Chloride (Iv Sodium Chloride 0.9% 1000ml Bag) 1,000 ml @ 1,000 mls/hr Q1H PRN IV hypotension; Start 09/23/16 at 14:18; Stop 09/23/16 at 21:00; Status DC Sodium Chloride (Normal Saline Flush) 10 ml 1X PRN PRN IV AP catheter pack; Start 09/23/16 at 14:30; Stop 09/23/16 at 21:00; Status DC Sodium Chloride (Normal Saline Flush) 10 ml 1X PRN PRN IV FI[employer] INS[employer]OR catheter pack; Start 09/23/16 at 14:30; Stop 09/23/16 at 21:00; Status DC Info (PHARMACY MONITORING -- do not chart) 1 each PRN DAILY PRN MC SEE COMMENTS ; Start 09/23/16 at 14:30; Status UNV Info (PHARMACY MONITORING -- do not chart) 1 each PRN DAILY PRN MC SEE COMMENTS ; Start 09/23/16 at 14:30; Status UNV Warfarin Sodium (Coumadin) 3 mg 1X ONCE PO Last administered on 09/23/16 17:34 ; Start 09/23/16 at 17:00; Stop 09/23/16 at 17:01; Status DC Lidocaine/Sodium Bicarbonate (Buffered Lidocaine 1%) 20 ml STK-MED ONCE IJ ; Start 09/24/16 at 14:59; Stop 09/24/16 at 15:00; Status DC Fentanyl Citrate (Fentanyl 2ml Vial) 100 mcg STK-MED ONCE .ROUTE ; Start at 15:05; Stop 09/24/16 at 15:06; Status DC Midazolam HCl (Versed) 2 mg STK-MED ONCE .ROUTE ; Start 09/24/16 at 15:05; Stop 09/24/16 at 15:06; Status DC Lidocaine/Sodium Bicarbonate (Buffered Lidocaine 1%) 20 ml 1X ONCE IJ Last administered on 09/24/16 16:13; Start 09/24/16 at 16:15; Stop 09/24/16 at 16:16; Status DC Midazolam HCl (Versed) 2 mg 1X ONCE IV Last administered on 09/24/16 16:14; Start 09/24/16 at 16:15; Stop 09/24/16 at 16:16; Status DC Fentanyl Citrate (Fentanyl 2ml Vial) 100 mcg 1X ONCE IV Last administered on 16:15; Start 09/24/16 at 16:15; Stop 09/24/16 at 16:16; Status DC Warfarin Sodium 2 mg 2 mg 1X ONCE PO Last administered on 09/24/16 16:35; Start 09/24/16 at 17:00; Stop 09/24/16 at 17:01; Status DC Sodium Chloride 1,000 ml @ 1,000 mls/hr Q1H PRN IV hypotension; Start 09/25/16 at 08:38; Stop 09/25/16 at 14:37 Albumin Human (Albuminar) 200 ml @ 200 mls/hr 1X PRN PRN IV Hypotension; Start 09/25/16 at 08:45; Stop 09/25/16 at 14:44 Acetaminophen (Tylenol) 500 mg 1X PRN PRN PO MILD PAIN / TEMP; Start 09/25/16 at 08:45; Stop 09/26/16 at 08:44 Diphenhydramine HCl (Benadryl) 25 mg 1X PRN PRN IV ITCHING; Start 09/25/16 at 08 :45; Stop 09/26/16 at 08:44 Info (PHARMACY MONITORING -- do not chart) 1 each PRN DAILY PRN MC SEE COMMENTS ; Start 09/25/16 at 08:45; Status UNV Vancomycin HCl 1 each 1 each PRN DAILY PRN MC SEE COMMENTS; Start 09/25/16 at 09 :15 Piperacillin Sod/ Tazobactam Sod 2.25 gm/Sodium Chloride 50 ml @ 100 mls/hr Q6HRS IV ; Start 09/25/16 at 10:00 Vancomycin HCl/ Sodium Chloride (Iv Sodium Chloride 0.9% 500ml Bag) 500 ml @ 250 mls/hr ONCE ONCE IV ; Start 09/25/16 at 10:00; Stop 09/25/16 at 11:59 Active Scripts Active Reported [Mylanta] Tylenol (Acetaminophen) 325 Mg Tablet 1 Tab PO PRN Q4HRS Fleet Enema (Na Phos,M-B/Na Phos,Di-Ba) 133 Ml Enema 1 Each RC ONCE Dulcolax (Bisacodyl) 10 Mg Supp.rect 10 Mg RC PRN DAILY PRN Zofran Odt (Ondansetron) 8 Mg Tab.rapdis 1 Tab PO PRN Q8HRS PRN Nitrostat (Nitroglycerin) 0.4 Mg Tab.subl 1 Tab SL UD Cyclobenzaprine Hcl 10 Mg Tablet 1 Tab PO TID Zepatier 50-100 mg Tablet (Elbasvir/Grazoprevir) 1 Each Tablet 1 Each PO [PhosLo] Coreg (Carvedilol) 25 Mg Tablet 1 Tab PO BID Aspirin 81 Mg Tab.chew 1 Tab PO DAILY Allopurinol 100 Mg Tablet 1 Tab PO DAILY Ventolin Hfa Inhaler (Albuterol Sulfate) 18 Gm Hfa.aer.ad 2 Puff INH Q4HRS Nephplex Rx Tablet (Vit B Cmplx No3/Fa/C/Biot/Zinc) 1 Each Tablet 1 Each PO Senokot (Sennosides) 8.6 Mg Tablet 1 Tab PO BID Oxycontin (Oxycodone HCl) 10 Mg Tab.er.12h 10 Mg PO BID Glycolax (Polyethylene Glycol 3350) 119 Gm Powder 17 Gm PO UD Percocet 10-325 Mg Tablet (Oxycodone/Acetaminophen) 1 Each Tablet 1 Tab PO Q4- 6HRS Vitamin D3 (Cholecalciferol (Vitamin D3)) 1,000 Unit Tablet 1 Tab PO DAILY Advair 250-50 Diskus (Fluticasone/Salmeterol) 1 Each Disk.w.dev 1 Puff IH BID Ipratropium [employer] 0.2 Mg/1 Ml Solution 1 Vial NEB QID Lidoderm (Lidocaine) 700 Mg Adh..patch 1 Patch TP DAILY Nortriptyline Hcl 25 Mg Capsule 1 Cap PO QHS Ciprofloxacin Hcl 250 Mg Tablet 1 Tab PO BID Warfarin Sodium 2 Mg Tablet 1.5 Mg PO DAILY Gabapentin 300 Mg Capsule 300 Mg PO TID Zoloft (Sertraline Hcl) 100 Mg Tablet 1 Tab PO DAILY Vitals/I & O Vital Sign - Last 24 Hours 09/24/16 09/24/16 09/24/16 09/24/16 11:08 12:14 12:14 14:23 Temp 97.8 97.8 Pulse 74 Resp 16 B/P 114/61 Pulse Ox 96 O2 Delivery Room Air Room Air Room Air Room Air 09/24/16 09/24/16 09/24/16 09/24/16 15:00 15:38 15:43 15:48 Temp 98.5 98.5 Pulse 72 75 76 76 Resp 14 9 12 15 B/P 154/79 Pulse Ox 94 100 100 100 O2 Delivery Room Air Nasal Cannula Nasal Cannula Nasal Cannula O2 Flow Rate 2.0 2.0 2.0 09/24/16 09/24/16 09/24/16 09/24/16 15:53 15:58 16:03 16:09 Pulse 77 76 76 76 Resp 10 16 16 15 Pulse Ox 100 100 100 99 O2 Delivery Nasal Cannula Nasal Cannula Nasal Cannula Nasal Cannula O2 Flow Rate 2.0 2.0 2.0 2.0 09/24/16 09/24/16 09/24/16 09/24/16 16:15 16:30 16:36 16:45 Temp 97.7 97.7 Pulse 75 72 72 Resp 12 17 B/P 158/68 141/62 141/62 Pulse Ox 100 95 O2 Delivery Nasal Cannula Room Air O2 Flow Rate 2.0 09/24/16 09/24/16 09/24/16 09/24/16 17:00 17:15 17:17 19:15 Temp 98.4 98.4 Pulse 70 71 53 Resp 20 B/P 163/105 151/97 144/53 Pulse Ox 98 O2 Delivery Room Air Room Air 09/24/16 09/24/16 09/24/16 09/24/16 20:00 20:04 20:16 21:15 Pulse 73 80 Resp 20 20 B/P 145/82 157/67 O2 Delivery Room Air Room Air 09/24/16 09/24/16 09/25/16 09/25/16 21:38 23:00 03:00 03:46 Temp 98.5 98.7 98.5 98.7 Pulse 81 Resp 20 20 B/P 167/72 183/79 Pulse Ox 94 95 O2 Delivery Room Air Room Air Room Air Room Air 09/25/16 09/25/16 09/25/16 09/25/16 05:39 05:47 07:00 07:00 Temp 97.8 97.8 Pulse 77 77 77 Resp 16 B/P 179/92 179/92 148/81 Pulse Ox 97 O2 Delivery Room Air Room Air O2 Flow Rate 97.0 Intake and Output 09/24/16 09/24/16 09/25/16 15:00 23:00 07:00 Intake Total 0 ml Balance 0 ml MELITA HEIN MD Sep 25, 2016 09:53
[2016-09-25] MEDS: PIPERACILLIN/TAZOBACTAM 2.25 GM in IV NORMAL SALINE 50ML 50 ML IV SCH ×2 (10:00→17:40)
[2016-09-25] MEDS ORDERED: VANCOMYCIN 2 GM in IV NORMAL SALINE 500ML BAG 500 ML IV ONE (10:00)
--- NOTE | 2016-09-25 10:15 | PDOC ---
PROGRESS NOTES Subjective Subjective She feels better. Objective Objective Vital Signs Date Time Temp Pulse Resp B/P Pulse Ox O2 Delivery O2 Flow Rate FiO2 09/25/16 07:00 97.8 77 16 148/81 Room Air 97.0 97.8 09/25/16 07:00 97 Intake and Output 09/25/16 07:00 Intake Total 0 ml Balance 0 ml Intake Oral 0 ml Physical Exam Physical Exam She is alert,receiving hemodialysis. Assessment Assessment Problems Medical Problems: (1) Anemia Status: Acute (2) Coagulopathy Status: Acute (3) Coumadin toxicity Status: Acute (4) Elevated INR (international normalized ratio) due to prior anticoagulant medication ingestion Status: Acute (5) ESRD on dialysis Status: Acute (6) GI bleed Status: Acute Plan Plan of Care Agree with 's plans. Comment Review of Relevant I have reviewed the following items christi (where applicable) has been applied. Labs Laboratory Tests Test 09/24/16 03:50 09/25/16 05:10 Prothrombin Time 18.0SEC (11.7-14.0) 17.3SEC (11.7-14.0) Prothromb Time International Ratio 1.6 (0.8-1.1) 1.5 (0.8-1.1) Laboratory Tests Test 09/25/16 05:10 Prothrombin Time 17.3SEC (11.7-14.0) Prothromb Time International Ratio 1.5 (0.8-1.1) Medications Current Medications Oxycodone/ Acetaminophen (Percocet 5/325) 1 tab 1X ONCE PO ; Start 09/09/16 at 19:00; Stop 09/09/16 at 19:01; Status DC Hydromorphone HCl 1 mg 1 mg 1X ONCE IV Last administered on 09/09/16 19:21; Start 09/09/16 at 19:15; Stop 09/09/16 at 19:16; Status DC Pantoprazole Sodium/Sodium Chloride (Protonix Iv/Iv Sodium Chloride 0.9% 100ml) 100 ml @ 10 mls/hr 1X ONCE IV Last administered on 09/09/16 19:51; Start at 19:30; Stop 09/10/16 at 05:29; Status DC Ondansetron HCl 4 mg 4 mg PRN Q8HRS PRN IV NAUSEA/VOMITING Last administered on 09/09/16 19:51; Start 09/09/16 at 19:30; Stop 09/10/16 at 19:29; Status DC Sodium Chloride (Iv Sodium Chloride 0.9% 1000ml Bag) 1,000 ml @ 100 mls/hr Q10H IV Last administered on 09/09/16 19:51; Start 09/09/16 at 19:30; Stop at 06:00; Status DC Acetaminophen (Tylenol) 650 mg PRN Q4HRS PRN PO FEVER Last administered on 09/09 19:52; Start 09/09/16 at 19:30; Stop 09/10/16 at 19:29; Status DC Multi-Ingredient Mouthwash/Gargle 15 ml 15 ml 1X ONCE SWSW Last administered on 09/09/16 23:41; Start 09/09/16 at 23:30; Stop 09/09/16 at 23:31; Status DC Phytonadione/ Sodium Chloride (Vitamin K/Iv Sodium Chloride 0.9% 50ml) 51 ml @ 102 mls/hr 1X ONCE IV Last administered on 09/10/16 02:07; Start 09/10/16 at 00:00; Stop 09/10/16 at 00:29; Status DC Acetaminophen (Tylenol) 325 mg PRN Q4HRS PO ; Start 09/09/16 at 23:30; Stop at 23:30; Status DC Allopurinol (Zyloprim) 100 mg DAILY PO Last administered on 09/24/16 08:13; Start 09/10/16 at 09:00 Bisacodyl (Dulcolax Supp) 10 mg PRN DAILY PRN RC CONSTIPATION; Start 09/09/16 at 23:30 Cyclobenzaprine HCl (Flexeril) 10 mg PRN TID PRN PO back pain Last administered on 09/21/16 15:14; Start 09/09/16 at 23:30 Gabapentin (Neurontin) 300 mg DAILY PO Last administered on 09/24/16 08:14; Start 09/10/16 at 09:00 Ipratropium Tippo (Atrovent) 0.2 mg QID NEB ; Start 09/10/16 at 09:00; Status UNV Lidocaine (Lidoderm) 1 patch DAILY TP Last administered on 09/24/16 08:13; Start 09/10/16 at 09:00 Nortriptyline HCl (Pamelor) 25 mg QHS PO Last administered on 09/24/16 21:37; Start 09/10/16 at 21:00 Oxycodone HCl (Oxycontin) 10 mg BID PO Last administered on 09/24/16 21:38; Start 09/10/16 at 09:00 Oxycodone/ Acetaminophen (Percocet 10/325) 1 tab PRN Q4HRS PRN PO SEVERE PAIN Last administered on 09/25/16 03:46; Start 09/09/16 at 23:30 Non-Formulary Medication 2 puff Q4HRS INH FOR ASTHMA; Start 09/10/16 at 00:00; Status UNV Carvedilol (Coreg) 25 mg BIDWMEALS PO Last administered on 09/24/16 16:36; Start 09/10/16 at 08:00 Non-Formulary Medication 1 puff BID IH ; Start 09/10/16 at 09:00; Status UNV Ondansetron HCl (Zofran Odt) 8 mg Q8HRS PO Last administered on 09/21/16 05:53 ; Start 09/10/16 at 06:00 Sertraline HCl (Zoloft) 100 mg DAILY PO Last administered on 09/24/16 08:13; Start 09/10/16 at 09:00 Labetalol HCl (Normodyne) 20 mg PRN Q2HR PRN IVP HYPERTENSION, SEE COMMENTS Last administered on 09/25/16 05:47; Start 09/09/16 at 23:30 Albuterol/ Ipratropium (Duoneb) 3 ml RTQID NEB Last administered on 09/23/16 11 :40; Start 09/10/16 at 08:00 Budesonide (Pulmicort) 0.5 mg RTBID NEB Last administered on 09/23/16 07:44; Start 09/10/16 at 08:00 Albuterol Sulfate 2.5 mg 2.5 mg PRN Q4HRS PRN NEB SHORTNESS OF BREATH; Start at 23:30 Pantoprazole Sodium 80 mg/ Sodium Chloride 100 ml @ 10 mls/hr Q10H IV Last administered on 09/13/16t 07:51; Start 09/10/16 at 10:00; Stop 09/13/16 at 09:59 ; Status DC Magnesium Sulfate/ Dextrose 50 ml @ 25 mls/hr PRN DAILY PRN IV for Mag < 1.7 on am labs; Start 09/10/16 at 10:00; Stop 09/22/16 at 11:36; Status DC Sodium Chloride (Iv Sodium Chloride 0.9% 1000ml Bag) 1,000 ml @ 1,000 mls/hr Q1H PRN IV hypotension; Start 09/11/16 at 08:50; Stop 09/11/16 at 14:49; Status DC Diphenhydramine HCl (Benadryl) 25 mg 1X PRN PRN IV ITCHING; Start 09/11/16 at 09:00; Stop 09/12/16 at 08:59; Status DC Diphenhydramine HCl (Benadryl) 25 mg 1X PRN PRN IV ITCHING; Start 09/11/16 at 09:00; Stop 09/12/16 at 08:59; Status DC Sodium Chloride (Normal Saline Flush) 10 ml 1X PRN PRN IV AP catheter pack; Start 09/11/16 at 09:00; Stop 09/12/16 at 08:59; Status DC Sodium Chloride (Normal Saline Flush) 10 ml 1X PRN PRN IV BRUSH MATERIAL PREPARER catheter pack; Start 09/11/16 at 09:00; Stop 09/12/16 at 08:59; Status DC Labetalol HCl 10 mg 10 mg PRN Q1HR PRN IVP SBP > 180; Start 09/11/16 at 09:00; Stop 09/12/16 at 08:59; Status DC Sodium Chloride (Iv Sodium Chloride 0.9% 1000ml Bag) 1,000 ml @ 400 mls/hr Q2H30M PRN IV PATENCY; Start 09/11/16 at 08:50; Stop 09/11/16 at 20:49; Status DC Info (PHARMACY MONITORING -- do not chart) 1 each PRN DAILY PRN MC SEE COMMENTS ; Start 09/11/16 at 09:00 Info (PHARMACY MONITORING -- do not chart) 1 each PRN DAILY PRN MC SEE COMMENTS ; Start 09/11/16 at 09:00; Status UNV Sodium Cl/Sod Bicarb/Potass Cl/ PEG (Golytely) 4,000 ml 1X ONCE PO Last administered on 09/11/16t 17:13; Start 09/11/16 at 13:00; Stop 09/11/16 at 13:01 ; Status DC Fentanyl Citrate (Fentanyl 2ml Vial) 25 mcg PRN Q5MIN PRN IV MILD PAIN; Start 09/12/16 at 07:00; Stop 09/13/16 at 06:59; Status DC Fentanyl Citrate 50 mcg 50 mcg PRN Q5MIN PRN IV MODERATE PAIN; Start 09/12/16 at 07:00; Stop 09/13/16 at 06:59; Status DC Lactated Ringer's (Iv Lactated Ringers) 1,000 ml @ 0 mls/hr Q0M IV ; Start at 07:00; Stop 09/12/16 at 18:59; Status DC Lidocaine HCl 2 ml 1X PRN PRN ID IV START; Start 09/12/16 at 07:00; Stop at 06:59; Status DC Prochlorperazine Edisylate (Compazine) 5 mg PACU PRN PRN IV NAUSEA; Start 09/12 at 07:00; Stop 09/13/16 at 06:59; Status DC Pantoprazole Sodium 40 mg 40 mg DAILYAC IVP ; Start 09/13/16 at 07:30; Status UNV Magnesium Sulfate/ Dextrose 50 ml @ 25 mls/hr 1X ONCE IV ; Start 09/12/16 at 11 :30; Stop 09/12/16 at 13:29; Status DC Propofol 0 ml @ As Directed STK-MED ONCE IV ; Start 09/12/16 at 12:55; Stop at 12:56; Status DC Propofol (Diprivan) 20 ml @ As Directed STK-MED ONCE IV ; Start 09/12/16 at 12: 55; Stop 09/12/16 at 12:56; Status Cancel Lidocaine HCl (Lidocaine Pf 2% Vial) 5 ml STK-MED ONCE .ROUTE ; Start 09/12/16 at 12:55; Stop 09/12/16 at 12:56; Status DC Lorazepam (Ativan) 2 mg PRN Q4HRS PRN IV ANXIETY / AGITATION; Start 09/12/16 at 14:15 Lorazepam (Ativan) 2 mg Q4HRS PRN IV ANXIETY / AGITATION; Start 09/12/16 at 14: 15; Status UNV Haloperidol Lactate (Haldol) 2.5 mg PRN Q6HRS PRN IM AGITATION; Start 09/12/16 at 14:15 Haloperidol Lactate (Haldol) 2.5 mg PRN Q6HRS PRN IVP AGITATION; Start at 14:15 Lorazepam 2 mg 2 mg PRN Q4HRS PRN IM ANXIETY / AGITATION; Start 09/12/16 at 14: 30; Stop 09/17/16 at 14:37; Status DC Sodium Chloride (Iv Sodium Chloride 0.9% 1000ml Bag) 1,000 ml @ 1,000 mls/hr Q1H PRN IV hypotension; Start 09/13/16 at 08:39; Stop 09/13/16 at 14:38; Status DC Diphenhydramine HCl (Benadryl) 25 mg 1X PRN PRN IV ITCHING; Start 09/13/16 at 08:45; Stop 09/14/16 at 08:44; Status DC Diphenhydramine HCl (Benadryl) 25 mg 1X PRN PRN IV ITCHING; Start 09/13/16 at 08:45; Stop 09/14/16 at 08:44; Status DC Sodium Chloride (Normal Saline Flush) 10 ml 1X PRN PRN IV AP catheter pack; Start 09/13/16 at 08:45; Stop 09/14/16 at 08:44; Status DC Sodium Chloride (Normal Saline Flush) 10 ml 1X PRN PRN IV BRUSH MATERIAL PREPARER catheter pack; Start 09/13/16 at 08:45; Stop 09/14/16 at 08:44; Status DC Labetalol HCl (Normodyne) 10 mg PRN Q1HR PRN IVP SBP > 180; Start 09/13/16 at 08:45; Stop 09/14/16 at 08:44; Status DC Info (PHARMACY MONITORING -- do not chart) 1 each PRN DAILY PRN MC SEE COMMENTS ; Start 09/13/16 at 08:45; Status UNV Info (PHARMACY MONITORING -- do not chart) 1 each PRN DAILY PRN MC SEE COMMENTS ; Start 09/13/16 at 08:45; Status UNV Pantoprazole Sodium 40 mg 40 mg DAILYAC IVP Last administered on 09/16/16 05: 57; Start 09/13/16 at 13:00; Stop 09/17/16 at 10:02; Status DC Sodium Chloride (Iv Sodium Chloride 0.9% 1000ml Bag) 1,000 ml @ 1,000 mls/hr Q1H PRN IV hypotension; Start 09/16/16 at 08:46; Stop 09/16/16 at 14:45; Status DC Diphenhydramine HCl (Benadryl) 25 mg 1X PRN PRN IV ITCHING; Start 09/16/16 at 09:00; Stop 09/17/16 at 08:59; Status DC Diphenhydramine HCl (Benadryl) 25 mg 1X PRN PRN IV ITCHING; Start 09/16/16 at 09:00; Stop 09/17/16 at 08:59; Status DC Sodium Chloride (Normal Saline Flush) 10 ml 1X PRN PRN IV AP catheter pack; Start 09/16/16 at 09:00; Stop 09/17/16 at 08:59; Status DC Sodium Chloride (Normal Saline Flush) 10 ml 1X PRN PRN IV BRUSH MATERIAL PREPARER catheter pack; Start 09/16/16 at 09:00; Stop 09/17/16 at 08:59; Status DC Info (PHARMACY MONITORING -- do not chart) 1 each PRN DAILY PRN MC SEE COMMENTS ; Start 09/16/16 at 09:00; Status UNV Info (PHARMACY MONITORING -- do not chart) 1 each PRN DAILY PRN MC SEE COMMENTS ; Start 09/16/16 at 09:00; Status UNV Darbepoetin Ernst (Aranesp) 60 mcg [id number] SQ Last administered on 09/23/16 20: 43; Start 09/16/16 at 21:00 Pantoprazole Sodium (Protonix) 40 mg DAILYAC PO Last administered on 09/24/16 08:13; Start 09/17/16 at 10:02 Fentanyl Citrate (Fentanyl 2ml Vial) 25 mcg PRN Q5MIN PRN IV MILD PAIN; Start 09/18/16 at 07:00; Stop 09/19/16 at 06:59; Status DC Fentanyl Citrate 50 mcg 50 mcg PRN Q5MIN PRN IV MODERATE PAIN; Start 09/18/16 at 07:00; Stop 09/19/16 at 06:59; Status DC Lactated Ringer's (Iv Lactated Ringers) 1,000 ml @ 0 mls/hr Q0M IV ; Start 09/18 at 07:00; Stop 09/18/16 at 18:59; Status DC Lidocaine HCl 2 ml 1X PRN PRN ID IV START; Start 09/18/16 at 07:00; Stop at 06:59; Status DC Prochlorperazine Edisylate (Compazine) 5 mg PACU PRN PRN IV NAUSEA; Start at 07:00; Stop 09/19/16 at 06:59; Status DC Dextrose 25 gm 25 gm STK-MED ONCE IV Last administered on 09/18/16 08:19; Start 09/18/16 at 08:19; Stop 09/18/16 at 08:20; Status DC Propofol (Diprivan) 20 ml @ As Directed STK-MED ONCE IV ; Start 09/18/16 at 11:13 ; Stop 09/18/16 at 11:14; Status DC Lidocaine HCl 5 ml 5 ml STK-MED ONCE .ROUTE ; Start 09/18/16 at 11:13; Stop at 11:14; Status DC Sodium Chloride 1,000 ml @ 100 mls/hr 1X ONCE IV Last administered on 11:29; Start 09/18/16 at 11:30; Stop 09/18/16 at 21:29; Status DC Sodium Chloride (Iv Sodium Chloride 0.9% 1000ml Bag) 1,000 ml @ 1,000 mls/hr Q1H PRN IV hypotension; Start 09/18/16 at 13:47; Stop 09/18/16 at 19:46; Status DC Acetaminophen (Tylenol) 500 mg 1X PRN PRN PO MILD PAIN / TEMP; Start 09/18/16 at 14:00; Stop 09/19/16 at 13:59; Status DC Diphenhydramine HCl (Benadryl) 25 mg 1X PRN PRN IV ITCHING; Start 09/18/16 at 14 :00; Stop 09/19/16 at 13:59; Status DC Diphenhydramine HCl (Benadryl) 25 mg 1X PRN PRN IV ITCHING; Start 09/18/16 at 14 :00; Stop 09/19/16 at 13:59; Status DC Labetalol HCl 10 mg 10 mg PRN Q1HR PRN IVP SBP > 180; Start 09/18/16 at 14:00; Stop 09/19/16 at 13:59; Status DC Sodium Chloride (Iv Sodium Chloride 0.9% 1000ml Bag) 1,000 ml @ 400 mls/hr Q2H30M PRN IV PATENCY; Start 09/18/16 at 13:47; Stop 09/19/16 at 01:46; Status DC Info 1 each 1 each PRN DAILY PRN MC SEE COMMENTS; Start 09/18/16 at 14:00; Status UNV Sodium Chloride 1,000 ml @ 1,000 mls/hr Q1H PRN IV hypotension; Start 09/20/16 at 07:30; Stop 09/20/16 at 18:00; Status DC Albumin Human (Albuminar) 200 ml @ 200 mls/hr 1X PRN PRN IV Hypotension; Start 09/20/16 at 07:45; Stop 09/20/16 at 14:00; Status DC Acetaminophen (Tylenol) 500 mg 1X PRN PRN PO MILD PAIN / TEMP; Start 09/20/16 at 07:45; Stop 09/20/16 at 18:00; Status DC Diphenhydramine HCl (Benadryl) 25 mg 1X PRN PRN IV ITCHING; Start 09/20/16 at 07 :45; Stop 09/20/16 at 18:00; Status DC Diphenhydramine HCl (Benadryl) 25 mg 1X PRN PRN IV ITCHING; Start 09/20/16 at 07 :45; Stop 09/20/16 at 18:00; Status DC Sodium Chloride (Normal Saline Flush) 10 ml 1X PRN PRN IV AP catheter pack; Start 09/20/16 at 07:45; Stop 09/20/16 at 18:00; Status DC Sodium Chloride (Normal Saline Flush) 10 ml 1X PRN PRN IV BRUSH MATERIAL PREPARER catheter pack; Start 09/20/16 at 07:45; Stop 09/20/16 at 18:00; Status DC Labetalol HCl 10 mg 10 mg PRN Q1HR PRN IVP SBP > 180; Start 09/20/16 at 07:45; Stop 09/20/16 at 18:00; Status DC Sodium Chloride (Iv Sodium Chloride 0.9% 1000ml Bag) 1,000 ml @ 400 mls/hr Q2H30M PRN IV PATENCY; Start 09/20/16 at 07:45; Stop 09/20/16 at 18:00; Status DC Info (PHARMACY MONITORING -- do not chart) 1 each PRN DAILY PRN MC SEE COMMENTS ; Start 09/20/16 at 07:45; Status UNV Warfarin Sodium (Coumadin Per Pharmacy) 1 each PRN DAILY PRN MC SEE COMMENTS Last administered on 09/24/16 16:11; Start 09/20/16 at 14:30 Warfarin Sodium (Coumadin) 2 mg 1X WARF ONCE PO Last administered on 09/20/16 17:27; Start 09/20/16 at 17:14; Stop 09/20/16 at 17:15; Status DC Methylprednisolone Acetate (Depo-Medrol 80mg Vial) 80 mg 1X ONCE IM ; Start 09/20/16 at 17:30; Stop 09/20/16 at 17:33; Status DC Methylprednisolone Acetate (Depo-Medrol 40mg Vial) 40 mg 1X ONCE IM ; Start 09/20/16 at 17:30; Stop 09/20/16 at 17:33; Status DC Bupivacaine HCl (Sensorcaine-Mpf 0.25%) 10 ml 1X ONCE IJ ; Start 09/20/16 at 17: 30; Stop 09/20/16 at 17:33; Status DC Warfarin Sodium (Coumadin) 2 mg 1X WARF ONCE PO Last administered on 09/21/16 17:14; Start 09/21/16 at 16:00; Stop 09/21/16 at 16:01; Status DC Warfarin Sodium 3 mg 3 mg 1X WARF ONCE PO Last administered on 09/22/16 17:28 ; Start 09/22/16 at 16:00; Stop 09/22/16 at 16:01; Status DC Sodium Chloride (Iv Sodium Chloride 0.9% 1000ml Bag) 1,000 ml @ 1,000 mls/hr Q1H PRN IV hypotension; Start 09/23/16 at 14:18; Stop 09/23/16 at 21:00; Status DC Sodium Chloride (Normal Saline Flush) 10 ml 1X PRN PRN IV AP catheter pack; Start 09/23/16 at 14:30; Stop 09/23/16 at 21:00; Status DC Sodium Chloride (Normal Saline Flush) 10 ml 1X PRN PRN IV BRUSH MATERIAL PREPARER catheter pack; Start 09/23/16 at 14:30; Stop 09/23/16 at 21:00; Status DC Info (PHARMACY MONITORING -- do not chart) 1 each PRN DAILY PRN MC SEE COMMENTS ; Start 09/23/16 at 14:30; Status UNV Info (PHARMACY MONITORING -- do not chart) 1 each PRN DAILY PRN MC SEE COMMENTS ; Start 09/23/16 at 14:30; Status UNV Warfarin Sodium (Coumadin) 3 mg 1X ONCE PO Last administered on 09/23/16 17:34 ; Start 09/23/16 at 17:00; Stop 09/23/16 at 17:01; Status DC Lidocaine/Sodium Bicarbonate (Buffered Lidocaine 1%) 20 ml STK-MED ONCE IJ ; Start 09/24/16 at 14:59; Stop 09/24/16 at 15:00; Status DC Fentanyl Citrate (Fentanyl 2ml Vial) 100 mcg STK-MED ONCE .ROUTE ; Start at 15:05; Stop 09/24/16 at 15:06; Status DC Midazolam HCl (Versed) 2 mg STK-MED ONCE .ROUTE ; Start 09/24/16 at 15:05; Stop 09/24/16 at 15:06; Status DC Lidocaine/Sodium Bicarbonate (Buffered Lidocaine 1%) 20 ml 1X ONCE IJ Last administered on 09/24/16 16:13; Start 09/24/16 at 16:15; Stop 09/24/16 at 16:16; Status DC Midazolam HCl (Versed) 2 mg 1X ONCE IV Last administered on 09/24/16 16:14; Start 09/24/16 at 16:15; Stop 09/24/16 at 16:16; Status DC Fentanyl Citrate (Fentanyl 2ml Vial) 100 mcg 1X ONCE IV Last administered on 16:15; Start 09/24/16 at 16:15; Stop 09/24/16 at 16:16; Status DC Warfarin Sodium 2 mg 2 mg 1X ONCE PO Last administered on 09/24/16 16:35; Start 09/24/16 at 17:00; Stop 09/24/16 at 17:01; Status DC Sodium Chloride 1,000 ml @ 1,000 mls/hr Q1H PRN IV hypotension; Start 09/25/16 at 08:38; Stop 09/25/16 at 14:37 Albumin Human (Albuminar) 200 ml @ 200 mls/hr 1X PRN PRN IV Hypotension; Start 09/25/16 at 08:45; Stop 09/25/16 at 14:44 Acetaminophen (Tylenol) 500 mg 1X PRN PRN PO MILD PAIN / TEMP; Start 09/25/16 at 08:45; Stop 09/26/16 at 08:44 Diphenhydramine HCl (Benadryl) 25 mg 1X PRN PRN IV ITCHING; Start 09/25/16 at 08 :45; Stop 09/26/16 at 08:44 Info (PHARMACY MONITORING -- do not chart) 1 each PRN DAILY PRN MC SEE COMMENTS ; Start 09/25/16 at 08:45; Status UNV Vancomycin HCl 1 each 1 each PRN DAILY PRN MC SEE COMMENTS; Start 09/25/16 at 09 :15 Piperacillin Sod/ Tazobactam Sod 2.25 gm/Sodium Chloride 50 ml @ 100 mls/hr Q6HRS IV ; Start 09/25/16 at 10:00 Vancomycin HCl/ Sodium Chloride (Iv Sodium Chloride 0.9% 500ml Bag) 500 ml @ 250 mls/hr ONCE ONCE IV ; Start 09/25/16 at 10:00; Stop 09/25/16 at 11:59 Active Scripts Active Reported [Mylanta] Tylenol (Acetaminophen) 325 Mg Tablet 1 Tab PO PRN Q4HRS Fleet Enema (Na Phos,M-B/Na Phos,Di-Ba) 133 Ml Enema 1 Each RC ONCE Dulcolax (Bisacodyl) 10 Mg Supp.rect 10 Mg RC PRN DAILY PRN Zofran Odt (Ondansetron) 8 Mg Tab.rapdis 1 Tab PO PRN Q8HRS PRN Nitrostat (Nitroglycerin) 0.4 Mg Tab.subl 1 Tab SL UD Cyclobenzaprine Hcl 10 Mg Tablet 1 Tab PO TID Zepatier 50-100 mg Tablet (Elbasvir/Grazoprevir) 1 Each Tablet 1 Each PO [PhosLo] Coreg (Carvedilol) 25 Mg Tablet 1 Tab PO BID Aspirin 81 Mg Tab.chew 1 Tab PO DAILY Allopurinol 100 Mg Tablet 1 Tab PO DAILY Ventolin Hfa Inhaler (Albuterol Sulfate) 18 Gm Hfa.aer.ad 2 Puff INH Q4HRS Nephplex Rx Tablet (Vit B Cmplx No3/Fa/C/Biot/Zinc) 1 Each Tablet 1 Each PO Senokot (Sennosides) 8.6 Mg Tablet 1 Tab PO BID Oxycontin (Oxycodone HCl) 10 Mg Tab.er.12h 10 Mg PO BID Glycolax (Polyethylene Glycol 3350) 119 Gm Powder 17 Gm PO UD Percocet 10-325 Mg Tablet (Oxycodone/Acetaminophen) 1 Each Tablet 1 Tab PO Q4- 6HRS Vitamin D3 (Cholecalciferol (Vitamin D3)) 1,000 Unit Tablet 1 Tab PO DAILY Advair 250-50 Diskus (Fluticasone/Salmeterol) 1 Each Disk.w.dev 1 Puff IH BID Ipratropium Tippo 0.2 Mg/1 Ml Solution 1 Vial NEB QID Lidoderm (Lidocaine) 700 Mg Adh..patch 1 Patch TP DAILY Nortriptyline Hcl 25 Mg Capsule 1 Cap PO QHS Ciprofloxacin Hcl 250 Mg Tablet 1 Tab PO BID Warfarin Sodium 2 Mg Tablet 1.5 Mg PO DAILY Gabapentin 300 Mg Capsule 300 Mg PO TID Zoloft (Sertraline Hcl) 100 Mg Tablet 1 Tab PO DAILY Vitals/I & O Vital Sign - Last 24 Hours 09/24/16 09/24/16 09/24/16 09/24/16 11:08 12:14 12:14 14:23 Temp 97.8 97.8 Pulse 74 Resp 16 B/P 114/61 Pulse Ox 96 O2 Delivery Room Air Room Air Room Air Room Air 09/24/16 09/24/16 09/24/16 09/24/16 15:00 15:38 15:43 15:48 Temp 98.5 98.5 Pulse 72 75 76 76 Resp 14 9 12 15 B/P 154/79 Pulse Ox 94 100 100 100 O2 Delivery Room Air Nasal Cannula Nasal Cannula Nasal Cannula O2 Flow Rate 2.0 2.0 2.0 09/24/16 09/24/16 09/24/16 09/24/16 15:53 15:58 16:03 16:09 Pulse 77 76 76 76 Resp 10 16 16 15 Pulse Ox 100 100 100 99 O2 Delivery Nasal Cannula Nasal Cannula Nasal Cannula Nasal Cannula O2 Flow Rate 2.0 2.0 2.0 2.0 09/24/16 09/24/16 09/24/16 09/24/16 16:15 16:30 16:36 16:45 Temp 97.7 97.7 Pulse 75 72 72 Resp 12 17 B/P 158/68 141/62 141/62 Pulse Ox 100 95 O2 Delivery Nasal Cannula Room Air O2 Flow Rate 2.0 09/24/16 09/24/16 09/24/16 09/24/16 17:00 17:15 17:17 19:15 Temp 98.4 98.4 Pulse 70 71 53 Resp 20 B/P 163/105 151/97 144/53 Pulse Ox 98 O2 Delivery Room Air Room Air 09/24/16 09/24/16 09/24/16 09/24/16 20:00 20:04 20:16 21:15 Pulse 73 80 Resp 20 20 B/P 145/82 157/67 O2 Delivery Room Air Room Air 09/24/16 09/24/16 09/25/16 09/25/16 21:38 23:00 03:00 03:46 Temp 98.5 98.7 98.5 98.7 Pulse 81 Resp 20 20 B/P 167/72 183/79 Pulse Ox 94 95 O2 Delivery Room Air Room Air Room Air Room Air 09/25/16 09/25/16 09/25/16 09/25/16 05:39 05:47 07:00 07:00 Temp 97.8 97.8 Pulse 77 77 77 Resp 16 B/P 179/92 179/92 148/81 Pulse Ox 97 O2 Delivery Room Air Room Air O2 Flow Rate 97.0 Intake and Output 09/24/16 09/24/16 09/25/16 15:00 23:00 07:00 Intake Total 0 ml Balance 0 ml CAROLANN PRUETT MD Sep 25, 2016 10:15
--- NOTE | 2016-09-25 10:36 | PDOC ---
Dialysis Progress Note Dialysis Note Dialysis Note Seen on Hemodialysis, tolerating treatment Okay Vitals on Hemodialysis: 145/77 79 afeb General Appearance: Awake: Alert Oriented x 3 Neck: No JVD or JVP Chest: CTA Donny Heart: S1 S2 Abdomen - Soft NTND Extremities - No Edema ESRD: Dialysis as below F 180 NR 3.5 Hrs 2 K 2.5 Ca 140 Na 35 HC03 Qb 350 + Qd 500+ Heparin 0 Units Uf 3 Kgs or to dry weight as tolerated May give 25-50 gms of 25% Albumin if needed to maintain Hemodynamic stability Treatment plan reviewed and discussed with gauge and weigh machine adjuster Vitals Vital Signs Vital Signs Date Time Temp Pulse Resp B/P Pulse Ox O2 Delivery O2 Flow Rate FiO2 09/25/16 07:00 97.8 77 16 148/81 Room Air 97.0 97.8 09/25/16 07:00 97 Labs Last Labs Laboratory Tests Test 09/24/16 03:50 09/25/16 05:10 Prothrombin Time 18.0SEC (11.7-14.0) 17.3SEC (11.7-14.0) Prothromb Time International Ratio 1.6 (0.8-1.1) 1.5 (0.8-1.1) Laboratory Tests Test 09/25/16 05:10 Prothrombin Time 17.3SEC (11.7-14.0) Prothromb Time International Ratio 1.5 (0.8-1.1) Assessment Assessment Problems Medical Problems: (1) Anemia Status: Acute (2) Coagulopathy Status: Acute (3) Coumadin toxicity Status: Acute (4) Elevated INR (international normalized ratio) due to prior anticoagulant medication ingestion Status: Acute (5) ESRD on dialysis Status: Acute (6) GI bleed Status: Acute Problems: Plan Plan of Care Problems Medical Problems: (1) Anemia Status: Acute (2) Coagulopathy Status: Acute (3) Coumadin toxicity Status: Acute (4) Elevated INR (international normalized ratio) due to prior anticoagulant medication ingestion Status: Acute (5) ESRD on dialysis Status: Acute (6) GI bleed Status: Acute HERMELINDA MCINTYRE MD Sep 25, 2016 10:36
--- NOTE | 2016-09-25 11:32 | PDOC ---
Subjective: Subjective: Seen during dialysis. No GI complaints - says 3 stools yesterday w/o blood. 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 -- Stable GI-andrew. JORGE YANG Sep 25, 2016 11:32
[2016-09-25] MEDS: OXYCODONE ER 10 MG TAB.ER.12H. PO SCH ×2 (13:33→21:12)
[2016-09-25] MEDS: LIDOCAINE (700MG/PATCH) PATCH. TP SCH (13:33)
[2016-09-25] MEDS: VANCOMYCIN PER PHARMACY MC PRN ×2 (14:34→14:37)
--- NOTE | 2016-09-25 14:34 | RAD ---
EXAM: Renal/retroperitonal ultrasound HISTORY: Right renal mass. COMPARISON: 08/19/2016. FINDINGS: Ultrasound of the kidneys, bladder and retroperitoneum was performed. The right kidney measures 10.3 cm. Cortical echogenicity is diffusely increased. Cortical thickness is preserved. There is no hydronephrosis. A cyst at the upper pole measures 2.2 x 2.1 cm. It has some internal echoes consistent with heterogeneous contents. No internal flow is demonstrated. A second smaller cyst at the right upper pole also appears, located measures 1.4 x 1.0 cm. The left kidney is obscured by bowel gas currently. It was unremarkable but mildly atrophic on recent CT. The bladder is decompressed and not well visualized. IMPRESSION: 1. There appear to be 2 complicated cysts at the right renal upper pole measuring up to 2.2 cm. Benign proteinaceous/hemorrhagic cysts are most likely. Another sonographic follow-up could be performed in 6 months versus MRI with/without contrast. 2. Increased right renal cortical echogenicity is consistent with intrinsic renal disease. 3. The left kidney is obscured currently. It was mildly atrophic but otherwise unremarkable on prior CT.
[2016-09-25 15:00] VITALS: BP 155/56
[2016-09-25] MEDS ORDERED: WARFARIN 4 MG TABLET. PO ONE (16:00)
[2016-09-25] MEDS ORDERED: WARFARIN 3 MG TABLET. PO ONE (16:00)
[2016-09-25 19:53] VITALS: BP 136/71
[2016-09-25] MEDS: NORTRIPTYLINE 25 MG CAPSULE PO SCH (21:11)
[2016-09-25 23:36] VITALS: BP 155/80
[2016-09-26 03:01] VITALS: BP 155/94
--- NOTE | 2016-09-26 04:25 | CONS ---
DATE OF CONSULTATION: 09/25/2016 CHIEF COMPLAINT: Mass anterior portion of the right kidney. HISTORY OF PRESENT ILLNESS: This is a 61-year-old obese -[place] female, who was initially admitted to the hospital for acute GI bleed and anemia. She has recovered from that. The patient was undergoing an MRI study of her back when I was noted that she had a mass, perhaps a complex cyst in the right kidney. No other x-rays are available. The patient is on chronic dialysis, she states that since 04/2016. She denies any history of kidney stones or kidney tumors. ALLERGIES: THE PATIENT IS ALLERGIC TO ERYTHROMYCIN AND MORPHINE. PAST MEDICAL HISTORY: Significant for 1. End-stage renal disease. She is on hemodialysis. 2. Recent Coumadin coagulopathy. 3. Gastrointestinal bleed. 4. Hypertension. 5. Asthma. 6. Obesity. 7. Chronic back pain. 8. Atrial fibrillation. PHYSICAL EXAMINATION: GENERAL DESCRIPTION: A 61-year-old -[place] female, morbidly obese. She is alert and oriented. She denies any acute pain at this time and she does have chronic back pain. ABDOMEN: Soft, nontender. She denies flank pain to palpation bilaterally. There is no palpable abdominal mass. No suprapubic tenderness. EXTREMITIES: Mild edema lower extremities. Negative for cyanosis. LABORATORY DATA: The patient's current hemoglobin 7.3, hematocrit 22.7, white blood cell count 8.7, platelet count was adequate. Most recent electrolytes were within normal limits. BUN 37, creatinine 4.0. No x-rays pertinent to the urological system. MRI does suggest some type of cyst in the right kidney. IMPRESSION: 1. Possible cyst in the right kidney. 2. Morbid obesity. 3. End-stage renal disease -- dialysis dependent. PLAN: Ongoing to order an ultrasound of the kidneys to evaluate this possible cyst. This was discussed with the patient. She appears to understand and is agreeable. Thank you for the opportunity to participate in evaluation of this patient. TRISTA MARTINEZ DO DR: RITCHIE/leah JOB#: [id number] / [id number]
[2016-09-26 05:33] LABS: INR 1.5 (0.8-1.1); PROTHROMBIN TIME PATIENT 17.4 SEC (11.7-14.0)
[2016-09-26] MEDS: PIPERACILLIN/TAZOBACTAM 2.25 GM in IV NORMAL SALINE 50ML 50 ML IV SCH ×5 (05:48→17:28)
[2016-09-26] MEDS: ONDANSETRON ODT 4 MG TAB.RAPDIS PO SCH ×3 (05:49→20:38)
[2016-09-26 07:18] VITALS: BP 166/73
[2016-09-26] MEDS: BUDESONIDE 0.5 MG/2 ML NEBU NEB SCH ×2 (08:00→19:11)
[2016-09-26] MEDS: IPRATRPIUM/ALBUTEROL 0.5/2.5MG 3 ML NEBU. NEB SCH ×4 (08:00→19:11)
[2016-09-26] MEDS: SERTRALINE 50 MG TABLET. PO SCH (08:43)
[2016-09-26] MEDS: ALLOPURINOL 100 MG TABLET. PO SCH (08:43)
[2016-09-26] MEDS: PANTOPRAZOLE 40 MG TABLET. PO SCH (08:43)
[2016-09-26] MEDS: LIDOCAINE (700MG/PATCH) PATCH. TP SCH (08:43)
[2016-09-26] MEDS: OXYCODONE ER 10 MG TAB.ER.12H. PO SCH ×2 (08:44→20:38)
[2016-09-26] MEDS: GABAPENTIN 300 MG CAPSULE. PO SCH (08:44)
[2016-09-26] MEDS: CARVEDILOL 12.5 MG TABLET PO SCH ×2 (08:50→16:15)
--- NOTE | 2016-09-26 10:08 | PDOC ---
PROGRESS NOTES Subjective Subjective No new complaints. Objective Objective Vital Signs Date Time Temp Pulse Resp B/P Pulse Ox O2 Delivery O2 Flow Rate FiO2 09/26/16 08:50 88 166/73 09/26/16 08:44 15 Room Air 09/26/16 07:18 98.0 94 98.0 09/25/16 17:33 97.0 Intake and Output 09/26/16 07:00 Intake Total 600 ml Balance 600 ml Intake Oral 600 ml # Voids 1 Physical Exam Physical Exam She is alert and supine in bed and continues to require physical assistance with her mobility and self care. She had lumbar corset and hinge knee brace. Assessment Assessment Problems Medical Problems: (1) Anemia Status: Acute (2) Coagulopathy Status: Acute (3) Coumadin toxicity Status: Acute (4) Elevated INR (international normalized ratio) due to prior anticoagulant medication ingestion Status: Acute (5) ESRD on dialysis Status: Acute (6) GI bleed Status: Acute Plan Plan of Care To get her up as tolerated. Comment Review of Relevant I have reviewed the following items christi (where applicable) has been applied. Labs Laboratory Tests Test 09/25/16 05:10 09/25/16 17:28 09/25/16 21:11 09/26/16 04:55 Prothrombin Time 17.3SEC (11.7-14.0) 17.4SEC (11.7-14.0) Prothromb Time International Ratio 1.5 (0.8-1.1) 1.5 (0.8-1.1) Glucose (Fingerstick) 68mg/dL (70-99) 124mg/dL (70-99) Test 09/26/16 07:19 Glucose (Fingerstick) 117mg/dL (70-99) Laboratory Tests Test 09/25/16 17:28 09/25/16 21:11 09/26/16 04:55 09/26/16 07:19 Glucose (Fingerstick) 68mg/dL (70-99) 124mg/dL (70-99) 117mg/dL (70-99) Prothrombin Time 17.4SEC (11.7-14.0) Prothromb Time International Ratio 1.5 (0.8-1.1) Microbiology 09/24/16 Blood Culture - Preliminary, Resulted NO GROWTH AFTER 1 DAY Medications Current Medications Oxycodone/ Acetaminophen (Percocet 5/325) 1 tab 1X ONCE PO ; Start 09/09/16 at 19:00; Stop 09/09/16 at 19:01; Status DC Hydromorphone HCl 1 mg 1 mg 1X ONCE IV Last administered on 09/09/16 19:21; Start 09/09/16 at 19:15; Stop 09/09/16 at 19:16; Status DC Pantoprazole Sodium/Sodium Chloride (Protonix Iv/Iv Sodium Chloride 0.9% 100ml) 100 ml @ 10 mls/hr 1X ONCE IV Last administered on 09/09/16 19:51; Start at 19:30; Stop 09/10/16 at 05:29; Status DC Ondansetron HCl 4 mg 4 mg PRN Q8HRS PRN IV NAUSEA/VOMITING Last administered on 09/09/16 19:51; Start 09/09/16 at 19:30; Stop 09/10/16 at 19:29; Status DC Sodium Chloride (Iv Sodium Chloride 0.9% 1000ml Bag) 1,000 ml @ 100 mls/hr Q10H IV Last administered on 09/09/16 19:51; Start 09/09/16 at 19:30; Stop at 06:00; Status DC Acetaminophen (Tylenol) 650 mg PRN Q4HRS PRN PO FEVER Last administered on 09/09 19:52; Start 09/09/16 at 19:30; Stop 09/10/16 at 19:29; Status DC Multi-Ingredient Mouthwash/Gargle 15 ml 15 ml 1X ONCE SWSW Last administered on 09/09/16 23:41; Start 09/09/16 at 23:30; Stop 09/09/16 at 23:31; Status DC Phytonadione/ Sodium Chloride (Vitamin K/Iv Sodium Chloride 0.9% 50ml) 51 ml @ 102 mls/hr 1X ONCE IV Last administered on 09/10/16 02:07; Start 09/10/16 at 00:00; Stop 09/10/16 at 00:29; Status DC Acetaminophen (Tylenol) 325 mg PRN Q4HRS PO ; Start 09/09/16 at 23:30; Stop at 23:30; Status DC Allopurinol (Zyloprim) 100 mg DAILY PO Last administered on 09/26/16 08:43; Start 09/10/16 at 09:00 Bisacodyl (Dulcolax Supp) 10 mg PRN DAILY PRN RC CONSTIPATION; Start 09/09/16 at 23:30 Cyclobenzaprine HCl (Flexeril) 10 mg PRN TID PRN PO back pain Last administered on 09/21/16 15:14; Start 09/09/16 at 23:30 Gabapentin (Neurontin) 300 mg DAILY PO Last administered on 09/26/16 08:44; Start 09/10/16 at 09:00 Ipratropium [place] (Atrovent) 0.2 mg QID NEB ; Start 09/10/16 at 09:00; Status UNV Lidocaine (Lidoderm) 1 patch DAILY TP Last administered on 09/26/16 08:43; Start 09/10/16 at 09:00 Nortriptyline HCl (Pamelor) 25 mg QHS PO Last administered on 09/25/16 21:11; Start 09/10/16 at 21:00 Oxycodone HCl (Oxycontin) 10 mg BID PO Last administered on 09/26/16 08:44; Start 09/10/16 at 09:00 Oxycodone/ Acetaminophen (Percocet 10/325) 1 tab PRN Q4HRS PRN PO SEVERE PAIN Last administered on 09/25/16 16:02; Start 09/09/16 at 23:30 Non-Formulary Medication 2 puff Q4HRS INH FOR ASTHMA; Start 09/10/16 at 00:00; Status UNV Carvedilol (Coreg) 25 mg BIDWMEALS PO Last administered on 09/26/16 08:50; Start 09/10/16 at 08:00 Non-Formulary Medication 1 puff BID IH ; Start 09/10/16 at 09:00; Status UNV Ondansetron HCl (Zofran Odt) 8 mg Q8HRS PO Last administered on 09/26/16 05:49 ; Start 09/10/16 at 06:00 Sertraline HCl (Zoloft) 100 mg DAILY PO Last administered on 09/26/16 08:43; Start 09/10/16 at 09:00 Labetalol HCl (Normodyne) 20 mg PRN Q2HR PRN IVP HYPERTENSION, SEE COMMENTS Last administered on 09/25/16 05:47; Start 09/09/16 at 23:30 Albuterol/ Ipratropium (Duoneb) 3 ml RTQID NEB Last administered on 09/23/16 11 :40; Start 09/10/16 at 08:00 Budesonide (Pulmicort) 0.5 mg RTBID NEB Last administered on 09/23/16 07:44; Start 09/10/16 at 08:00 Albuterol Sulfate 2.5 mg 2.5 mg PRN Q4HRS PRN NEB SHORTNESS OF BREATH; Start at 23:30 Pantoprazole Sodium 80 mg/ Sodium Chloride 100 ml @ 10 mls/hr Q10H IV Last administered on 09/13/16 07:51; Start 09/10/16 at 10:00; Stop 09/13/16 at 09:59 ; Status DC Magnesium Sulfate/ Dextrose 50 ml @ 25 mls/hr PRN DAILY PRN IV for Mag < 1.7 on am labs; Start 09/10/16 at 10:00; Stop 09/22/16 at 11:36; Status DC Sodium Chloride (Iv Sodium Chloride 0.9% 1000ml Bag) 1,000 ml @ 1,000 mls/hr Q1H PRN IV hypotension; Start 09/11/16 at 08:50; Stop 09/11/16 at 14:49; Status DC Diphenhydramine HCl (Benadryl) 25 mg 1X PRN PRN IV ITCHING; Start 09/11/16 at 09:00; Stop 09/12/16 at 08:59; Status DC Diphenhydramine HCl (Benadryl) 25 mg 1X PRN PRN IV ITCHING; Start 09/11/16 at 09:00; Stop 09/12/16 at 08:59; Status DC Sodium Chloride (Normal Saline Flush) 10 ml 1X PRN PRN IV AP catheter pack; Start 09/11/16 at 09:00; Stop 09/12/16 at 08:59; Status DC Sodium Chloride (Normal Saline Flush) 10 ml 1X PRN PRN IV SHEETMETAL PATTERNMAKER catheter pack; Start 09/11/16 at 09:00; Stop 09/12/16 at 08:59; Status DC Labetalol HCl 10 mg 10 mg PRN Q1HR PRN IVP SBP > 180; Start 09/11/16 at 09:00; Stop 09/12/16 at 08:59; Status DC Sodium Chloride (Iv Sodium Chloride 0.9% 1000ml Bag) 1,000 ml @ 400 mls/hr Q2H30M PRN IV PATENCY; Start 09/11/16 at 08:50; Stop 09/11/16 at 20:49; Status DC Info (PHARMACY MONITORING -- do not chart) 1 each PRN DAILY PRN MC SEE COMMENTS ; Start 09/11/16 at 09:00 Info (PHARMACY MONITORING -- do not chart) 1 each PRN DAILY PRN MC SEE COMMENTS ; Start 09/11/16 at 09:00; Status UNV Sodium Cl/Sod Bicarb/Potass Cl/ PEG (Golytely) 4,000 ml 1X ONCE PO Last administered on 09/11/16t 17:13; Start 09/11/16 at 13:00; Stop 09/11/16 at 13:01 ; Status DC Fentanyl Citrate (Fentanyl 2ml Vial) 25 mcg PRN Q5MIN PRN IV MILD PAIN; Start 09/12/16 at 07:00; Stop 09/13/16 at 06:59; Status DC Fentanyl Citrate 50 mcg 50 mcg PRN Q5MIN PRN IV MODERATE PAIN; Start 09/12/16 at 07:00; Stop 09/13/16 at 06:59; Status DC Lactated Ringer's (Iv Lactated Ringers) 1,000 ml @ 0 mls/hr Q0M IV ; Start at 07:00; Stop 09/12/16 at 18:59; Status DC Lidocaine HCl 2 ml 1X PRN PRN ID IV START; Start 09/12/16 at 07:00; Stop at 06:59; Status DC Prochlorperazine Edisylate (Compazine) 5 mg PACU PRN PRN IV NAUSEA; Start 09/12 at 07:00; Stop 09/13/16 at 06:59; Status DC Pantoprazole Sodium 40 mg 40 mg DAILYAC IVP ; Start 09/13/16 at 07:30; Status UNV Magnesium Sulfate/ Dextrose 50 ml @ 25 mls/hr 1X ONCE IV ; Start 09/12/16 at 11 :30; Stop 09/12/16 at 13:29; Status DC Propofol 0 ml @ As Directed STK-MED ONCE IV ; Start 09/12/16 at 12:55; Stop at 12:56; Status DC Propofol (Diprivan) 20 ml @ As Directed STK-MED ONCE IV ; Start 09/12/16 at 12: 55; Stop 09/12/16 at 12:56; Status Cancel Lidocaine HCl (Lidocaine Pf 2% Vial) 5 ml STK-MED ONCE .ROUTE ; Start 09/12/16 at 12:55; Stop 09/12/16 at 12:56; Status DC Lorazepam (Ativan) 2 mg PRN Q4HRS PRN IV ANXIETY / AGITATION; Start 09/12/16 at 14:15 Lorazepam (Ativan) 2 mg Q4HRS PRN IV ANXIETY / AGITATION; Start 09/12/16 at 14: 15; Status UNV Haloperidol Lactate (Haldol) 2.5 mg PRN Q6HRS PRN IM AGITATION; Start 09/12/16 at 14:15 Haloperidol Lactate (Haldol) 2.5 mg PRN Q6HRS PRN IVP AGITATION; Start at 14:15 Lorazepam 2 mg 2 mg PRN Q4HRS PRN IM ANXIETY / AGITATION; Start 09/12/16 at 14: 30; Stop 09/17/16 at 14:37; Status DC Sodium Chloride (Iv Sodium Chloride 0.9% 1000ml Bag) 1,000 ml @ 1,000 mls/hr Q1H PRN IV hypotension; Start 09/13/16 at 08:39; Stop 09/13/16 at 14:38; Status DC Diphenhydramine HCl (Benadryl) 25 mg 1X PRN PRN IV ITCHING; Start 09/13/16 at 08:45; Stop 09/14/16 at 08:44; Status DC Diphenhydramine HCl (Benadryl) 25 mg 1X PRN PRN IV ITCHING; Start 09/13/16 at 08:45; Stop 09/14/16 at 08:44; Status DC Sodium Chloride (Normal Saline Flush) 10 ml 1X PRN PRN IV AP catheter pack; Start 09/13/16 at 08:45; Stop 09/14/16 at 08:44; Status DC Sodium Chloride (Normal Saline Flush) 10 ml 1X PRN PRN IV SHEETMETAL PATTERNMAKER catheter pack; Start 09/13/16 at 08:45; Stop 09/14/16 at 08:44; Status DC Labetalol HCl (Normodyne) 10 mg PRN Q1HR PRN IVP SBP > 180; Start 09/13/16 at 08:45; Stop 09/14/16 at 08:44; Status DC Info (PHARMACY MONITORING -- do not chart) 1 each PRN DAILY PRN MC SEE COMMENTS ; Start 09/13/16 at 08:45; Status UNV Info (PHARMACY MONITORING -- do not chart) 1 each PRN DAILY PRN MC SEE COMMENTS ; Start 09/13/16 at 08:45; Status UNV Pantoprazole Sodium 40 mg 40 mg DAILYAC IVP Last administered on 09/16/16t 05: 57; Start 09/13/16 at 13:00; Stop 09/17/16 at 10:02; Status DC Sodium Chloride (Iv Sodium Chloride 0.9% 1000ml Bag) 1,000 ml @ 1,000 mls/hr Q1H PRN IV hypotension; Start 09/16/16 at 08:46; Stop 09/16/16 at 14:45; Status DC Diphenhydramine HCl (Benadryl) 25 mg 1X PRN PRN IV ITCHING; Start 09/16/16 at 09:00; Stop 09/17/16 at 08:59; Status DC Diphenhydramine HCl (Benadryl) 25 mg 1X PRN PRN IV ITCHING; Start 09/16/16 at 09:00; Stop 09/17/16 at 08:59; Status DC Sodium Chloride (Normal Saline Flush) 10 ml 1X PRN PRN IV AP catheter pack; Start 09/16/16 at 09:00; Stop 09/17/16 at 08:59; Status DC Sodium Chloride (Normal Saline Flush) 10 ml 1X PRN PRN IV SHEETMETAL PATTERNMAKER catheter pack; Start 09/16/16 at 09:00; Stop 09/17/16 at 08:59; Status DC Info (PHARMACY MONITORING -- do not chart) 1 each PRN DAILY PRN MC SEE COMMENTS ; Start 09/16/16 at 09:00; Status UNV Info (PHARMACY MONITORING -- do not chart) 1 each PRN DAILY PRN MC SEE COMMENTS ; Start 09/16/16 at 09:00; Status UNV Darbepoetin Ernst (Aranesp) 60 mcg WEEKLYHS SQ Last administered on 09/23/16 20: 43; Start 09/16/16 at 21:00 Pantoprazole Sodium (Protonix) 40 mg DAILYAC PO Last administered on 09/26/16 08:43; Start 09/17/16 at 10:02 Fentanyl Citrate (Fentanyl 2ml Vial) 25 mcg PRN Q5MIN PRN IV MILD PAIN; Start 09/18/16 at 07:00; Stop 09/19/16 at 06:59; Status DC Fentanyl Citrate 50 mcg 50 mcg PRN Q5MIN PRN IV MODERATE PAIN; Start 09/18/16 at 07:00; Stop 09/19/16 at 06:59; Status DC Lactated Ringer's (Iv Lactated Ringers) 1,000 ml @ 0 mls/hr Q0M IV ; Start 09/18 at 07:00; Stop 09/18/16 at 18:59; Status DC Lidocaine HCl 2 ml 1X PRN PRN ID IV START; Start 09/18/16 at 07:00; Stop at 06:59; Status DC Prochlorperazine Edisylate (Compazine) 5 mg PACU PRN PRN IV NAUSEA; Start at 07:00; Stop 09/19/16 at 06:59; Status DC Dextrose 25 gm 25 gm STK-MED ONCE IV Last administered on 09/18/16 08:19; Start 09/18/16 at 08:19; Stop 09/18/16 at 08:20; Status DC Propofol (Diprivan) 20 ml @ As Directed STK-MED ONCE IV ; Start 09/18/16 at 11:13 ; Stop 09/18/16 at 11:14; Status DC Lidocaine HCl 5 ml 5 ml STK-MED ONCE .ROUTE ; Start 09/18/16 at 11:13; Stop at 11:14; Status DC Sodium Chloride 1,000 ml @ 100 mls/hr 1X ONCE IV Last administered on 11:29; Start 09/18/16 at 11:30; Stop 09/18/16 at 21:29; Status DC Sodium Chloride (Iv Sodium Chloride 0.9% 1000ml Bag) 1,000 ml @ 1,000 mls/hr Q1H PRN IV hypotension; Start 09/18/16 at 13:47; Stop 09/18/16 at 19:46; Status DC Acetaminophen (Tylenol) 500 mg 1X PRN PRN PO MILD PAIN / TEMP; Start 09/18/16 at 14:00; Stop 09/19/16 at 13:59; Status DC Diphenhydramine HCl (Benadryl) 25 mg 1X PRN PRN IV ITCHING; Start 09/18/16 at 14 :00; Stop 09/19/16 at 13:59; Status DC Diphenhydramine HCl (Benadryl) 25 mg 1X PRN PRN IV ITCHING; Start 09/18/16 at 14 :00; Stop 09/19/16 at 13:59; Status DC Labetalol HCl 10 mg 10 mg PRN Q1HR PRN IVP SBP > 180; Start 09/18/16 at 14:00; Stop 09/19/16 at 13:59; Status DC Sodium Chloride (Iv Sodium Chloride 0.9% 1000ml Bag) 1,000 ml @ 400 mls/hr Q2H30M PRN IV PATENCY; Start 09/18/16 at 13:47; Stop 09/19/16 at 01:46; Status DC Info 1 each 1 each PRN DAILY PRN MC SEE COMMENTS; Start 09/18/16 at 14:00; Status UNV Sodium Chloride 1,000 ml @ 1,000 mls/hr Q1H PRN IV hypotension; Start 09/20/16 at 07:30; Stop 09/20/16 at 18:00; Status DC Albumin Human (Albuminar) 200 ml @ 200 mls/hr 1X PRN PRN IV Hypotension; Start 09/20/16 at 07:45; Stop 09/20/16 at 14:00; Status DC Acetaminophen (Tylenol) 500 mg 1X PRN PRN PO MILD PAIN / TEMP; Start 09/20/16 at 07:45; Stop 09/20/16 at 18:00; Status DC Diphenhydramine HCl (Benadryl) 25 mg 1X PRN PRN IV ITCHING; Start 09/20/16 at 07 :45; Stop 09/20/16 at 18:00; Status DC Diphenhydramine HCl (Benadryl) 25 mg 1X PRN PRN IV ITCHING; Start 09/20/16 at 07 :45; Stop 09/20/16 at 18:00; Status DC Sodium Chloride (Normal Saline Flush) 10 ml 1X PRN PRN IV AP catheter pack; Start 09/20/16 at 07:45; Stop 09/20/16 at 18:00; Status DC Sodium Chloride (Normal Saline Flush) 10 ml 1X PRN PRN IV SHEETMETAL PATTERNMAKER catheter pack; Start 09/20/16 at 07:45; Stop 09/20/16 at 18:00; Status DC Labetalol HCl 10 mg 10 mg PRN Q1HR PRN IVP SBP > 180; Start 09/20/16 at 07:45; Stop 09/20/16 at 18:00; Status DC Sodium Chloride (Iv Sodium Chloride 0.9% 1000ml Bag) 1,000 ml @ 400 mls/hr Q2H30M PRN IV PATENCY; Start 09/20/16 at 07:45; Stop 09/20/16 at 18:00; Status DC Info (PHARMACY MONITORING -- do not chart) 1 each PRN DAILY PRN MC SEE COMMENTS ; Start 09/20/16 at 07:45; Status UNV Warfarin Sodium (Coumadin Per Pharmacy) 1 each PRN DAILY PRN MC SEE COMMENTS Last administered on 09/25/16t 12:19; Start 09/20/16 at 14:30 Warfarin Sodium (Coumadin) 2 mg 1X WARF ONCE PO Last administered on 09/20/16 17:27; Start 09/20/16 at 17:14; Stop 09/20/16 at 17:15; Status DC Methylprednisolone Acetate (Depo-Medrol 80mg Vial) 80 mg 1X ONCE IM ; Start 09/20/16 at 17:30; Stop 09/20/16 at 17:33; Status DC Methylprednisolone Acetate (Depo-Medrol 40mg Vial) 40 mg 1X ONCE IM ; Start 09/20/16 at 17:30; Stop 09/20/16 at 17:33; Status DC Bupivacaine HCl (Sensorcaine-Mpf 0.25%) 10 ml 1X ONCE IJ ; Start 09/20/16 at 17: 30; Stop 09/20/16 at 17:33; Status DC Warfarin Sodium (Coumadin) 2 mg 1X WARF ONCE PO Last administered on 09/21/16 17:14; Start 09/21/16 at 16:00; Stop 09/21/16 at 16:01; Status DC Warfarin Sodium 3 mg 3 mg 1X WARF ONCE PO Last administered on 09/22/16 17:28 ; Start 09/22/16 at 16:00; Stop 09/22/16 at 16:01; Status DC Sodium Chloride (Iv Sodium Chloride 0.9% 1000ml Bag) 1,000 ml @ 1,000 mls/hr Q1H PRN IV hypotension; Start 09/23/16 at 14:18; Stop 09/23/16 at 21:00; Status DC Sodium Chloride (Normal Saline Flush) 10 ml 1X PRN PRN IV AP catheter pack; Start 09/23/16 at 14:30; Stop 09/23/16 at 21:00; Status DC Sodium Chloride (Normal Saline Flush) 10 ml 1X PRN PRN IV SHEETMETAL PATTERNMAKER catheter pack; Start 09/23/16 at 14:30; Stop 09/23/16 at 21:00; Status DC Info (PHARMACY MONITORING -- do not chart) 1 each PRN DAILY PRN MC SEE COMMENTS ; Start 09/23/16 at 14:30; Status UNV Info (PHARMACY MONITORING -- do not chart) 1 each PRN DAILY PRN MC SEE COMMENTS ; Start 09/23/16 at 14:30; Status UNV Warfarin Sodium (Coumadin) 3 mg 1X ONCE PO Last administered on 09/23/16 17:34 ; Start 09/23/16 at 17:00; Stop 09/23/16 at 17:01; Status DC Lidocaine/Sodium Bicarbonate (Buffered Lidocaine 1%) 20 ml STK-MED ONCE IJ ; Start 09/24/16 at 14:59; Stop 09/24/16 at 15:00; Status DC Fentanyl Citrate (Fentanyl 2ml Vial) 100 mcg STK-MED ONCE .ROUTE ; Start at 15:05; Stop 09/24/16 at 15:06; Status DC Midazolam HCl (Versed) 2 mg STK-MED ONCE .ROUTE ; Start 09/24/16 at 15:05; Stop 09/24/16 at 15:06; Status DC Lidocaine/Sodium Bicarbonate (Buffered Lidocaine 1%) 20 ml 1X ONCE IJ Last administered on 09/24/16 16:13; Start 09/24/16 at 16:15; Stop 09/24/16 at 16:16; Status DC Midazolam HCl (Versed) 2 mg 1X ONCE IV Last administered on 09/24/16 16:14; Start 09/24/16 at 16:15; Stop 09/24/16 at 16:16; Status DC Fentanyl Citrate (Fentanyl 2ml Vial) 100 mcg 1X ONCE IV Last administered on 16:15; Start 09/24/16 at 16:15; Stop 09/24/16 at 16:16; Status DC Warfarin Sodium 2 mg 2 mg 1X ONCE PO Last administered on 09/24/16 16:35; Start 09/24/16 at 17:00; Stop 09/24/16 at 17:01; Status DC Sodium Chloride 1,000 ml @ 1,000 mls/hr Q1H PRN IV hypotension; Start 09/25/16 at 08:38; Stop 09/25/16 at 14:37; Status DC Albumin Human (Albuminar) 200 ml @ 200 mls/hr 1X PRN PRN IV Hypotension; Start 09/25/16 at 08:45; Stop 09/25/16 at 14:44; Status DC Acetaminophen (Tylenol) 500 mg 1X PRN PRN PO MILD PAIN / TEMP; Start 09/25/16 at 08:45; Stop 09/26/16 at 08:44; Status DC Diphenhydramine HCl (Benadryl) 25 mg 1X PRN PRN IV ITCHING; Start 09/25/16 at 08 :45; Stop 09/26/16 at 08:44; Status DC Info (PHARMACY MONITORING -- do not chart) 1 each PRN DAILY PRN MC SEE COMMENTS ; Start 09/25/16 at 08:45; Status UNV Vancomycin HCl 1 each 1 each PRN DAILY PRN MC SEE COMMENTS Last administered on 09/25/16 14:37; Start 09/25/16 at 09:15 Piperacillin Sod/ Tazobactam Sod 2.25 gm/Sodium Chloride 50 ml @ 100 mls/hr Q6HRS IV Last administered on 09/26/16 05:48; Start 09/25/16 at 10:00 Vancomycin HCl/ Sodium Chloride (Iv Sodium Chloride 0.9% 500ml Bag) 500 ml @ 250 mls/hr ONCE ONCE IV Last administered on 09/25/16 13:32; Start 09/25/16 at 10:00; Stop 09/25/16 at 11:59; Status DC Warfarin Sodium (Coumadin) 4 mg 1X WARF ONCE PO ; Start 09/25/16 at 16:00; Stop 09/25/16 at 16:00; Status DC Warfarin Sodium (Coumadin) 3 mg 1X WARF ONCE PO Last administered on 09/25/16 16:00; Start 09/25/16 at 16:00; Stop 09/25/16 at 16:01; Status DC Active Scripts Active Reported [Mylanta] Tylenol (Acetaminophen) 325 Mg Tablet 1 Tab PO PRN Q4HRS Fleet Enema (Na Phos,M-B/Na Phos,Di-Ba) 133 Ml Enema 1 Each RC ONCE Dulcolax (Bisacodyl) 10 Mg Supp.rect 10 Mg RC PRN DAILY PRN Zofran Odt (Ondansetron) 8 Mg Tab.rapdis 1 Tab PO PRN Q8HRS PRN Nitrostat (Nitroglycerin) 0.4 Mg Tab.subl 1 Tab SL UD Cyclobenzaprine Hcl 10 Mg Tablet 1 Tab PO TID Zepatier 50-100 mg Tablet (Elbasvir/Grazoprevir) 1 Each Tablet 1 Each PO [PhosLo] Coreg (Carvedilol) 25 Mg Tablet 1 Tab PO BID Aspirin 81 Mg Tab.chew 1 Tab PO DAILY Allopurinol 100 Mg Tablet 1 Tab PO DAILY Ventolin Hfa Inhaler (Albuterol Sulfate) 18 Gm Hfa.aer.ad 2 Puff INH Q4HRS Nephplex Rx Tablet (Vit B Cmplx No3/Fa/C/Biot/Zinc) 1 Each Tablet 1 Each PO Senokot (Sennosides) 8.6 Mg Tablet 1 Tab PO BID Oxycontin (Oxycodone HCl) 10 Mg Tab.er.12h 10 Mg PO BID Glycolax (Polyethylene Glycol 3350) 119 Gm Powder 17 Gm PO UD Percocet 10-325 Mg Tablet (Oxycodone/Acetaminophen) 1 Each Tablet 1 Tab PO Q4- 6HRS Vitamin D3 (Cholecalciferol (Vitamin D3)) 1,000 Unit Tablet 1 Tab PO DAILY Advair 250-50 Diskus (Fluticasone/Salmeterol) 1 Each Disk.w.dev 1 Puff IH BID Ipratropium [place] 0.2 Mg/1 Ml Solution 1 Vial NEB QID Lidoderm (Lidocaine) 700 Mg Adh..patch 1 Patch TP DAILY Nortriptyline Hcl 25 Mg Capsule 1 Cap PO QHS Ciprofloxacin Hcl 250 Mg Tablet 1 Tab PO BID Warfarin Sodium 2 Mg Tablet 1.5 Mg PO DAILY Gabapentin 300 Mg Capsule 300 Mg PO TID Zoloft (Sertraline Hcl) 100 Mg Tablet 1 Tab PO DAILY Vitals/I & O Vital Sign - Last 24 Hours 09/25/16 09/25/16 09/25/16 09/25/16 13:33 15:00 16:00 17:02 Temp 97.4 97.4 Pulse 78 78 Resp 20 B/P 155/56 155/56 Pulse Ox 97 96 96 O2 Delivery Room Air Room Air O2 Flow Rate 97.0 97.0 09/25/16 09/25/16 09/25/16 09/25/16 17:33 19:53 21:12 23:36 Temp 98.0 98.0 98.0 98.0 Pulse 78 77 Resp 18 20 18 B/P 136/71 155/80 Pulse Ox 96 98 96 O2 Delivery Room Air Room Air Room Air O2 Flow Rate 97.0 09/26/16 09/26/16 09/26/16 09/26/16 01:26 03:01 07:18 08:44 Temp 98.3 98.0 98.3 98.0 Pulse 76 88 Resp 23 18 16 15 B/P 155/94 166/73 Pulse Ox 96 94 O2 Delivery Room Air Room Air Room Air Room Air 09/26/16 08:50 Pulse 88 B/P 166/73 Intake and Output 09/25/16 09/25/16 09/26/16 15:00 23:00 07:00 Intake Total 240 ml 360 ml Balance 240 ml 360 ml CAROLANN PRUETT MD Sep 26, 2016 10:08
--- NOTE | 2016-09-26 10:31 | PDOC ---
Provider Note Provider Note UROLOGY: Renal ultrasound performed yesterday supports Right renal cysts Suggest: repeat renal US in 6 months, f/u with Nephrology. Thanks, TRISTA MARTINEZ DO Sep 26, 2016 10:31
--- NOTE | 2016-09-26 10:33 | PDOC ---
Infectious Disease Note Subjective Subjective feeling better ROS ROS GEN: Denies fevers, chills, sweats HEENT: Denies blurred vision, sore throat CV: Denies chest pain RESP: Denies shortness of air, cough GI: Denies n/v/d NEURO: Denies confusion, dizziness MSK: Denies weakness, joint pain/swelling Vital Sign Vital Signs Vital Signs Date Time Temp Pulse Resp B/P Pulse Ox O2 Delivery O2 Flow Rate FiO2 09/26/16 08:50 88 166/73 09/26/16 08:44 15 Room Air 09/26/16 07:18 98.0 94 98.0 09/25/16 17:33 97.0 Physical Exam PHYSICAL EXAM GENERAL: NAD, Alert HEENT: PERRL, OC/OP NECK: Supple, no JVD, no LN LUNGS: Clear HEART: S1S2, no gallop, no murmur ABD: Soft, NT, no organomegaly, no rebound EXT: No edema, no cyanosis SUBSTATION SUPERINTENDENT: Alert, oriented x 3, no focal neurologic deficit SKIN: No rash IV: ok Labs Lab Laboratory Tests Test 09/25/16 17:28 09/25/16 21:11 09/26/16 04:55 09/26/16 07:19 Glucose (Fingerstick) 68mg/dL (70-99) 124mg/dL (70-99) 117mg/dL (70-99) Prothrombin Time 17.4SEC (11.7-14.0) Prothromb Time International Ratio 1.5 (0.8-1.1) Micro BC neg spine culture pending Objective Assessment ? Diskitis L 1-2, chronic back pain, had back surgery last year GI bleed ESRD on HD HTN Plan Plan of Care BC x 2 disk aspirate for bacterial, fungal and afb stain and culture, done neel and DINESH Pride MD Sep 26, 2016 10:33
[2016-09-26 10:49] VITALS: BP 162/73
[2016-09-26] MEDS ORDERED: AMLODIPINE BESYLATE 2.5 MG TABLET PO SCH (11:00)
--- NOTE | 2016-09-26 11:07 | PDOC ---
SUBJECTIVE ROS ESRD doing well overall CVS: no Orthopnea, no CP RESP: no SOB, no CASAS GI: no Nausea, no Vomiting : no Dysuria, no Urgency OBJECTIVE Vital Signs Vital Signs Date Time Temp Pulse Resp B/P Pulse Ox O2 Delivery O2 Flow Rate FiO2 09/26/16 10:49 98.6 71 18 162/73 97 Room Air 98.6 09/26/16 08:20 97.0 I & 0 Intake and Output 09/26/16 07:00 Intake Total 600 ml Balance 600 ml Intake Oral 600 ml # Voids 1 PHYSICAL EXAM Physical Exam GEN: Awake, Oriented x 3, In no distress EYES: Vision Unchanged, Conjunctiva Normal EN: No EN Drainage, Mucous Membranes moist NECK: no JVD, no JVP, Supple, no Thyromegaly CVS: S1S2, soft Murmur, No Gallop, No Rub,no Edema RESP: no Rales, no Rhonchi,no Acc. Muscle Use GI: BS + ve, NO Bruit, Non Tender, Non Distended : no CVA tenderness, no Suprapubic Tenderness DIAGNOSIS/ASSESSMENT Assessment & Plan ESRD: Current fluid and E-lyte status does not necessitate emergent need for dialysis. Will re-evaluate for dialysis in the am and continue on MWF schedule. ANEMIA; Aranesp as ordered (^ed) , Transfuse with next HD as needed HTN: Current BP meds as reviewed. See orders for changes. BONE & MINERAL: follow PHos and alter binder regimen as needed HD Access - check US for AVF patency and flow; VS to OK initiation of use Discussed Plan of Care with pt at bedside COMMENT/RELEVANT DATA Meds Current Medications Medications (Trade) Dose Ordered Sig/César Start Time Stop Time Status Last Admin Dose Admin Acetaminophen (Tylenol) 500 mg 1X PRN PRN 09/25/16 08:45 09/26/16 08:44 DC Albumin Human (Albuminar) 200 ml @ 200 mls/hr 1X PRN PRN 09/25/16 08:45 09/25/16 14:44 DC Albuterol Sulfate 2.5 mg 2.5 mg PRN Q4HRS PRN 09/09/16 23:30 Albuterol/ Ipratropium (Duoneb) 3 ml RTQID 09/10/16 08:00 09/23/16 11:40 3 ML Allopurinol (Zyloprim) 100 mg DAILY 09/10/16 09:00 09/26/16 08:43 100 MG Bisacodyl (Dulcolax Supp) 10 mg PRN DAILY PRN 09/09/16 23:30 Budesonide (Pulmicort) 0.5 mg RTBID 09/10/16 08:00 09/23/16 07:44 0.5 MG Bupivacaine HCl (Sensorcaine-Mpf 0.25%) 10 ml 1X ONCE 09/20/16 17:30 09/20/16 17:33 DC Carvedilol (Coreg) 25 mg BIDWMEALS 09/10/16 08:00 09/26/16 08:50 25 MG Cyclobenzaprine HCl (Flexeril) 10 mg PRN TID PRN 09/09/16 23:30 09/21/16 15:14 10 MG Darbepoetin Ernst (Aranesp) 60 mcg WEEKLYHS 09/16/16 21:00 09/23/16 20:43 60 MCG Dextrose 25 gm 25 gm STK-MED ONCE 09/18/16 08:19 09/18/16 08:20 DC 09/18/16 08:19 25 GM Diphenhydramine HCl (Benadryl) 25 mg 1X PRN PRN 09/25/16 08:45 09/26/16 08:44 DC Fentanyl Citrate (Fentanyl 2ml Vial) 100 mcg 1X ONCE 09/24/16 16:15 09/24/16 16:16 DC 09/24/16 16:15 100 MCG Fentanyl Citrate 50 mcg 50 mcg PRN Q5MIN PRN 09/18/16 07:00 09/19/16 06:59 DC Gabapentin (Neurontin) 300 mg DAILY 09/10/16 09:00 09/26/16 08:44 300 MG Haloperidol Lactate (Haldol) 2.5 mg PRN Q6HRS PRN 09/12/16 14:15 Hydromorphone HCl (Dilaudid) 1 mg 1X ONCE 09/09/16 19:15 09/09/16 19:16 DC 09/09/16 19:21 1 MG Info (PHARMACY MONITORING -- do not chart) 1 each PRN DAILY PRN 09/25/16 08:45 UNV Ipratropium [place] (Atrovent) 0.2 mg QID 09/10/16 09:00 UNV Labetalol HCl (Normodyne) 10 mg PRN Q1HR PRN 09/20/16 07:45 09/20/16 18:00 DC Lactated Ringer's (Iv Lactated Ringers) 1,000 ml @ 0 mls/hr Q0M 09/18/16 07:00 09/18/16 18:59 DC Lidocaine (Lidoderm) 1 patch DAILY 09/10/16 09:00 09/26/16 08:43 1 PATCH Lidocaine HCl (Lidocaine Pf 2% Vial) 5 ml STK-MED ONCE 09/18/16 11:13 09/18/16 11:14 DC Lidocaine/Sodium Bicarbonate (Buffered Lidocaine 1%) 20 ml 1X ONCE 09/24/16 16:15 09/24/16 16:16 DC 09/24/16 16:13 20 ML Lorazepam (Ativan) 2 mg PRN Q4HRS PRN 09/12/16 14:30 09/17/16 14:37 DC Magnesium Sulfate/ Dextrose (Magnesium Sulfate PREMIX 2GM) 50 ml @ 25 mls/hr 1X ONCE 09/12/16 11:30 09/12/16 13:29 DC Methylprednisolone Acetate (Depo-Medrol 40mg Vial) 40 mg 1X ONCE 09/20/16 17:30 09/20/16 17:33 DC Methylprednisolone Acetate (Depo-Medrol 80mg Vial) 80 mg 1X ONCE 09/20/16 17:30 09/20/16 17:33 DC Midazolam HCl (Versed) 2 mg 1X ONCE 09/24/16 16:15 09/24/16 16:16 DC 09/24/16 16:14 2 MG Multi-Ingredient Mouthwash/Gargle 15 ml 15 ml 1X ONCE 09/09/16 23:30 09/09/16 23:31 DC 09/09/16 23:41 15 ML Non-Formulary Medication 1 puff BID 09/10/16 09:00 UNV Nortriptyline HCl (Pamelor) 25 mg QHS 09/10/16 21:00 09/25/16 21:11 25 MG Ondansetron HCl (Zofran Odt) 8 mg Q8HRS 09/10/16 06:00 09/26/16 05:49 8 MG Ondansetron HCl (Zofran) 4 mg PRN Q8HRS PRN 09/09/16 19:30 09/10/16 19:29 DC 09/09/16 19:51 4 MG Oxycodone HCl (Oxycontin) 10 mg BID 09/10/16 09:00 09/26/16 08:44 10 MG Oxycodone/ Acetaminophen (Percocet 10/325) 1 tab PRN Q4HRS PRN 09/09/16 23:30 09/25/16 16:02 1 TAB Oxycodone/ Acetaminophen (Percocet 5/325) 1 tab 1X ONCE 09/09/16 19:00 09/09/16 19:01 DC Pantoprazole Sodium (Protonix Vial) 40 mg DAILYAC 09/13/16 13:00 09/17/16 10:02 DC 09/16/16 05:57 40 MG Pantoprazole Sodium (Protonix) 40 mg DAILYAC 09/17/16 10:02 09/26/16 08:43 40 MG Pantoprazole Sodium 40 mg 40 mg DAILYAC 09/13/16 07:30 UNV Pantoprazole Sodium/Sodium Chloride (Protonix Iv/Iv Sodium Chloride 0.9% 100ml) 100 ml @ 10 mls/hr Q10H 09/10/16 10:00 09/13/16 09:59 DC 09/13/16 07:51 10 MLS/HR Phytonadione/ Sodium Chloride (Vitamin K/Iv Sodium Chloride 0.9% 50ml) 51 ml @ 102 mls/hr 1X ONCE 09/10/16 00:00 09/10/16 00:29 DC 09/10/16 02:07 102 MLS/HR Piperacillin Sod/ Tazobactam Sod 2.25 gm/Sodium Chloride 50 ml @ 100 mls/hr Q6HRS 09/25/16 10:00 09/26/16 05:48 100 MLS/HR Prochlorperazine Edisylate (Compazine) 5 mg PACU PRN PRN 09/18/16 07:00 09/19/16 06:59 DC Propofol (Diprivan) 20 ml @ As Directed STK-MED ONCE 09/18/16 11:13 09/18/16 11:14 DC Sertraline HCl (Zoloft) 100 mg DAILY 09/10/16 09:00 09/26/16 08:43 100 MG Sodium Chloride 1,000 ml @ 1,000 mls/hr Q1H PRN 09/25/16 08:38 09/25/16 14:37 DC Sodium Chloride (Iv Sodium Chloride 0.9% 1000ml Bag) 1,000 ml @ 1,000 mls/hr Q1H PRN 09/23/16 14:18 09/23/16 21:00 DC Sodium Chloride (Normal Saline Flush) 10 ml 1X PRN PRN 09/23/16 14:30 09/23/16 21:00 DC Sodium Cl/Sod Bicarb/Potass Cl/ PEG (Golytely) 4,000 ml 1X ONCE 09/11/16 13:00 09/11/16 13:01 DC 09/11/16 17:13 4,000 ML Vancomycin HCl 1 each 1 each PRN DAILY PRN 09/25/16 09:15 09/25/16 14:37 1 EACH Vancomycin HCl/ Sodium Chloride (Iv Sodium Chloride 0.9% 500ml Bag) 500 ml @ 250 mls/hr ONCE ONCE 09/25/16 10:00 09/25/16 11:59 DC 09/25/16 13:32 250 MLS/HR Warfarin Sodium (Coumadin Per Pharmacy) 1 each PRN DAILY PRN 09/20/16 14:30 09/25/16 12:19 1 EACH Warfarin Sodium (Coumadin) 3 mg 1X WARF ONCE 09/25/16 16:00 09/25/16 16:01 DC 09/25/16 16:00 3 MG Warfarin Sodium 2 mg 2 mg 1X ONCE 09/24/16 17:00 09/24/16 17:01 DC 09/24/16 16:35 2 MG Warfarin Sodium 3 mg 3 mg 1X WARF ONCE 09/22/16 16:00 09/22/16 16:01 DC 09/22/16 17:28 3 MG Lab Laboratory Tests Test 09/25/16 17:28 09/25/16 21:11 09/26/16 04:55 09/26/16 07:19 Glucose (Fingerstick) 68mg/dL (70-99) 124mg/dL (70-99) 117mg/dL (70-99) Prothrombin Time 17.4SEC (11.7-14.0) Prothromb Time International Ratio 1.5 (0.8-1.1) HERMELINDA MCINTYRE MD Sep 26, 2016 11:07
[2016-09-26] MEDS ORDERED: MAGNESIUM SULFATE 2GM 50 ML IV PRN (11:15)
--- NOTE | 2016-09-26 11:23 | PDOC ---
Provider Note Provider Note Vascular Consult not dictated Pt. with CRF Lt UA arm fistula placed by Dr. Zimmerman in [place]. Exam : Patent lt UA fistula Plan: OK with me to access Lt UA fistula , any other concerns or questions, please refer to Dr. Zimmerman, signing off JOSE DAVISON MD Sep 26, 2016 11:23
--- NOTE | 2016-09-26 11:54 | PDOC ---
Subjective: Subjective: No GI complaints. No bleeding. Objective: Objective: Awaiting aspirate/biopsy results before DC. Vital Signs: Vital Signs Date Time Temp Pulse Resp B/P Pulse Ox O2 Delivery O2 Flow Rate FiO2 09/26/16 10:49 98.6 71 18 162/73 97 Room Air 98.6 09/26/16 08:20 97.0 Labs: Laboratory Tests Test 09/25/16 17:28 09/25/16 21:11 09/26/16 04:55 09/26/16 07:19 Glucose (Fingerstick) 68mg/dL 124mg/dL 117mg/dL Prothrombin Time 17.4SEC Prothromb Time International Ratio 1.5 Test 09/26/16 11:10 Glucose (Fingerstick) 71mg/dL PE: GEN: NAD LUNGS: CTAB HEART: RRR ABD: S/ND/NT NEURO/PSYCH: A & O 3 A/P: Anemia -no further bleeding, Hgb in 7s (last checked 09/23) -EGD 09/18 w/ non-erosive gastritis, reports normal colonoscopy @[facility] last year - 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 JORGE YANG Sep 26, 2016 11:54
--- NOTE | 2016-09-26 14:02 | PDOC ---
PROGRESS NOTES Chief Complaint Chief Complaint 1. Acute blood loss anemia, GI bleed, s/p EGD 2. ESRD, on HD MWF 3. Coumadin coagulopathy, 4. Hypertension, comtrolled 5. Asthma, hx 6. Obesity 7. Back pain with possible discitis 8. A fib on coumadin 9. [facility] resident 10. RCC vs renal complex cyst - NEW 11. Discsitis vs OM - back -NEW 12. right renal cysts plan: 1. fu with specialist, id, renal, gi 2. bone bx pending, on vanco , zosyn now 3. cont HD 4. gi stable hope to dc when cx is back. on coumadin, INR daily uro consulted , no intervention for now, fu as outpt in 6ms increase amlodipine to 5mg daily History of Present Illness History of Present Illness Out having HD, no acute issues per RN S/p IR back procedure yesterday Incidenatl RCC vs complex renal mass - urology has not seen pt yet CT: IMPRESSION 1. Marked discogenic disease with loss of intervertebral disc material and fluid signal at L1-L2, L2-L3 and L3-L4. There is bony endplate edema at L1-2 suggesting possible discitis and osteomyelitis. Recommend correlation with sed rate and CBC. If there is clinical in decision MR with contrast may be helpful. 2. 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 There appears to be compression of the intra foraminal course of the exiting nerve roots on the left at L3-L4 and L4-5 and on the right at L3-L4. 3. Complex cyst versus mass seen anteriorly in the right kidney. This is not well evaluated but could be a renal cell carcinoma. 4. Presacral edema is nonspecific and is of uncertain etiology. Vitals Vitals Vital Signs Date Time Temp Pulse Resp B/P Pulse Ox O2 Delivery O2 Flow Rate FiO2 09/26/16 12:57 99 Room Air 09/26/16 12:44 97.0 09/26/16 12:21 71 162/73 09/26/16 10:49 98.6 18 98.6 Physical Exam General: Alert, Oriented X3, Cooperative, No acute distress Heart: Normal S1, Normal S2 Lungs: Clear Abdomen: Normal bowel sounds, Soft, No tenderness, No hepatosplenomegaly Extremities: No clubbing, No cyanosis, Other (back, no spinal tenderness. ) Skin: No rashes, No significant lesion, Other Labs LABS Laboratory Tests Test 09/25/16 17:28 09/25/16 21:11 09/26/16 04:55 09/26/16 07:19 Glucose (Fingerstick) 68mg/dL (70-99) 124mg/dL (70-99) 117mg/dL (70-99) Prothrombin Time 17.4SEC (11.7-14.0) Prothromb Time International Ratio 1.5 (0.8-1.1) Test 09/26/16 11:10 Glucose (Fingerstick) 71mg/dL (70-99) Review of Systems Review of Systems no fever, chills, sob or chest pain Assessment and Plan Assessmemt and Plan Problems Medical Problems: (1) Anemia Status: Acute (2) Coagulopathy Status: Acute (3) Coumadin toxicity Status: Acute (4) Elevated INR (international normalized ratio) due to prior anticoagulant medication ingestion Status: Acute (5) ESRD on dialysis Status: Acute (6) GI bleed Status: Acute Problems: Comment Review of Relevant I have reviewed the following items christi (where applicable) has been applied. Labs Laboratory Tests Test 09/25/16 05:10 09/25/16 17:28 09/25/16 21:11 09/26/16 04:55 Prothrombin Time 17.3SEC (11.7-14.0) 17.4SEC (11.7-14.0) Prothromb Time International Ratio 1.5 (0.8-1.1) 1.5 (0.8-1.1) Glucose (Fingerstick) 68mg/dL (70-99) 124mg/dL (70-99) Test 09/26/16 07:19 09/26/16 11:10 Glucose (Fingerstick) 117mg/dL (70-99) 71mg/dL (70-99) Laboratory Tests Test 09/25/16 17:28 09/25/16 21:11 09/26/16 04:55 09/26/16 07:19 Glucose (Fingerstick) 68mg/dL (70-99) 124mg/dL (70-99) 117mg/dL (70-99) Prothrombin Time 17.4SEC (11.7-14.0) Prothromb Time International Ratio 1.5 (0.8-1.1) Test 09/26/16 11:10 Glucose (Fingerstick) 71mg/dL (70-99) Microbiology 09/24/16 Blood Culture - Preliminary, Resulted NO GROWTH AFTER 2 DAYS Medications Current Medications Oxycodone/ Acetaminophen (Percocet 5/325) 1 tab 1X ONCE PO ; Start 09/09/16 at 19:00; Stop 09/09/16 at 19:01; Status DC Hydromorphone HCl 1 mg 1 mg 1X ONCE IV Last administered on 09/09/16 19:21; Start 09/09/16 at 19:15; Stop 09/09/16 at 19:16; Status DC Pantoprazole Sodium/Sodium Chloride (Protonix Iv/Iv Sodium Chloride 0.9% 100ml) 100 ml @ 10 mls/hr 1X ONCE IV Last administered on 09/09/16 19:51; Start at 19:30; Stop 09/10/16 at 05:29; Status DC Ondansetron HCl 4 mg 4 mg PRN Q8HRS PRN IV NAUSEA/VOMITING Last administered on 09/09/16 19:51; Start 09/09/16 at 19:30; Stop 09/10/16 at 19:29; Status DC Sodium Chloride (Iv Sodium Chloride 0.9% 1000ml Bag) 1,000 ml @ 100 mls/hr Q10H IV Last administered on 09/09/16 19:51; Start 09/09/16 at 19:30; Stop at 06:00; Status DC Acetaminophen (Tylenol) 650 mg PRN Q4HRS PRN PO FEVER Last administered on 09/09 19:52; Start 09/09/16 at 19:30; Stop 09/10/16 at 19:29; Status DC Multi-Ingredient Mouthwash/Gargle 15 ml 15 ml 1X ONCE SWSW Last administered on 09/09/16 23:41; Start 09/09/16 at 23:30; Stop 09/09/16 at 23:31; Status DC Phytonadione/ Sodium Chloride (Vitamin K/Iv Sodium Chloride 0.9% 50ml) 51 ml @ 102 mls/hr 1X ONCE IV Last administered on 09/10/16 02:07; Start 09/10/16 at 00:00; Stop 09/10/16 at 00:29; Status DC Acetaminophen (Tylenol) 325 mg PRN Q4HRS PO ; Start 09/09/16 at 23:30; Stop at 23:30; Status DC Allopurinol (Zyloprim) 100 mg DAILY PO Last administered on 09/26/16 08:43; Start 09/10/16 at 09:00 Bisacodyl (Dulcolax Supp) 10 mg PRN DAILY PRN RC CONSTIPATION; Start 09/09/16 at 23:30 Cyclobenzaprine HCl (Flexeril) 10 mg PRN TID PRN PO back pain Last administered on 09/21/16 15:14; Start 09/09/16 at 23:30 Gabapentin (Neurontin) 300 mg DAILY PO Last administered on 09/26/16 08:44; Start 09/10/16 at 09:00 Ipratropium Mackay (Atrovent) 0.2 mg QID NEB ; Start 09/10/16 at 09:00; Status UNV Lidocaine (Lidoderm) 1 patch DAILY TP Last administered on 09/26/16 08:43; Start 09/10/16 at 09:00 Nortriptyline HCl (Pamelor) 25 mg QHS PO Last administered on 09/25/16 21:11; Start 09/10/16 at 21:00 Oxycodone HCl (Oxycontin) 10 mg BID PO Last administered on 09/26/16 08:44; Start 09/10/16 at 09:00 Oxycodone/ Acetaminophen (Percocet 10/325) 1 tab PRN Q4HRS PRN PO SEVERE PAIN Last administered on 09/25/16 16:02; Start 09/09/16 at 23:30 Non-Formulary Medication 2 puff Q4HRS INH FOR ASTHMA; Start 09/10/16 at 00:00; Status UNV Carvedilol (Coreg) 25 mg BIDWMEALS PO Last administered on 09/26/16 08:50; Start 09/10/16 at 08:00 Non-Formulary Medication 1 puff BID IH ; Start 09/10/16 at 09:00; Status UNV Ondansetron HCl (Zofran Odt) 8 mg Q8HRS PO Last administered on 09/26/16 05:49 ; Start 09/10/16 at 06:00 Sertraline HCl (Zoloft) 100 mg DAILY PO Last administered on 09/26/16 08:43; Start 09/10/16 at 09:00 Labetalol HCl (Normodyne) 20 mg PRN Q2HR PRN IVP HYPERTENSION, SEE COMMENTS Last administered on 09/25/16 05:47; Start 09/09/16 at 23:30 Albuterol/ Ipratropium (Duoneb) 3 ml RTQID NEB Last administered on 09/26/16 12 :00; Start 09/10/16 at 08:00 Budesonide (Pulmicort) 0.5 mg RTBID NEB Last administered on 09/26/16 08:00; Start 09/10/16 at 08:00 Albuterol Sulfate 2.5 mg 2.5 mg PRN Q4HRS PRN NEB SHORTNESS OF BREATH; Start at 23:30 Pantoprazole Sodium 80 mg/ Sodium Chloride 100 ml @ 10 mls/hr Q10H IV Last administered on 09/13/16 07:51; Start 09/10/16 at 10:00; Stop 09/13/16 at 09:59 ; Status DC Magnesium Sulfate/ Dextrose 50 ml @ 25 mls/hr PRN DAILY PRN IV for Mag < 1.7 on am labs; Start 09/10/16 at 10:00; Stop 09/22/16 at 11:36; Status DC Sodium Chloride (Iv Sodium Chloride 0.9% 1000ml Bag) 1,000 ml @ 1,000 mls/hr Q1H PRN IV hypotension; Start 09/11/16 at 08:50; Stop 09/11/16 at 14:49; Status DC Diphenhydramine HCl (Benadryl) 25 mg 1X PRN PRN IV ITCHING; Start 09/11/16 at 09:00; Stop 09/12/16 at 08:59; Status DC Diphenhydramine HCl (Benadryl) 25 mg 1X PRN PRN IV ITCHING; Start 09/11/16 at 09:00; Stop 09/12/16 at 08:59; Status DC Sodium Chloride (Normal Saline Flush) 10 ml 1X PRN PRN IV AP catheter pack; Start 09/11/16 at 09:00; Stop 09/12/16 at 08:59; Status DC Sodium Chloride (Normal Saline Flush) 10 ml 1X PRN PRN IV DECAL DECORATOR catheter pack; Start 09/11/16 at 09:00; Stop 09/12/16 at 08:59; Status DC Labetalol HCl 10 mg 10 mg PRN Q1HR PRN IVP SBP > 180; Start 09/11/16 at 09:00; Stop 09/12/16 at 08:59; Status DC Sodium Chloride (Iv Sodium Chloride 0.9% 1000ml Bag) 1,000 ml @ 400 mls/hr Q2H30M PRN IV PATENCY; Start 09/11/16 at 08:50; Stop 09/11/16 at 20:49; Status DC Info (PHARMACY MONITORING -- do not chart) 1 each PRN DAILY PRN MC SEE COMMENTS ; Start 09/11/16 at 09:00 Info (PHARMACY MONITORING -- do not chart) 1 each PRN DAILY PRN MC SEE COMMENTS ; Start 09/11/16 at 09:00; Status UNV Sodium Cl/Sod Bicarb/Potass Cl/ PEG (Golytely) 4,000 ml 1X ONCE PO Last administered on 09/11/16t 17:13; Start 09/11/16 at 13:00; Stop 09/11/16 at 13:01 ; Status DC Fentanyl Citrate (Fentanyl 2ml Vial) 25 mcg PRN Q5MIN PRN IV MILD PAIN; Start 09/12/16 at 07:00; Stop 09/13/16 at 06:59; Status DC Fentanyl Citrate 50 mcg 50 mcg PRN Q5MIN PRN IV MODERATE PAIN; Start 09/12/16 at 07:00; Stop 09/13/16 at 06:59; Status DC Lactated Ringer's (Iv Lactated Ringers) 1,000 ml @ 0 mls/hr Q0M IV ; Start at 07:00; Stop 09/12/16 at 18:59; Status DC Lidocaine HCl 2 ml 1X PRN PRN ID IV START; Start 09/12/16 at 07:00; Stop at 06:59; Status DC Prochlorperazine Edisylate (Compazine) 5 mg PACU PRN PRN IV NAUSEA; Start 09/12 at 07:00; Stop 09/13/16 at 06:59; Status DC Pantoprazole Sodium 40 mg 40 mg DAILYAC IVP ; Start 09/13/16 at 07:30; Status UNV Magnesium Sulfate/ Dextrose 50 ml @ 25 mls/hr 1X ONCE IV ; Start 09/12/16 at 11 :30; Stop 09/12/16 at 13:29; Status DC Propofol 0 ml @ As Directed STK-MED ONCE IV ; Start 09/12/16 at 12:55; Stop at 12:56; Status DC Propofol (Diprivan) 20 ml @ As Directed STK-MED ONCE IV ; Start 09/12/16 at 12: 55; Stop 09/12/16 at 12:56; Status Cancel Lidocaine HCl (Lidocaine Pf 2% Vial) 5 ml STK-MED ONCE .ROUTE ; Start 09/12/16 at 12:55; Stop 09/12/16 at 12:56; Status DC Lorazepam (Ativan) 2 mg PRN Q4HRS PRN IV ANXIETY / AGITATION; Start 09/12/16 at 14:15 Lorazepam (Ativan) 2 mg Q4HRS PRN IV ANXIETY / AGITATION; Start 09/12/16 at 14: 15; Status UNV Haloperidol Lactate (Haldol) 2.5 mg PRN Q6HRS PRN IM AGITATION; Start 09/12/16 at 14:15 Haloperidol Lactate (Haldol) 2.5 mg PRN Q6HRS PRN IVP AGITATION; Start at 14:15 Lorazepam 2 mg 2 mg PRN Q4HRS PRN IM ANXIETY / AGITATION; Start 09/12/16 at 14: 30; Stop 09/17/16 at 14:37; Status DC Sodium Chloride (Iv Sodium Chloride 0.9% 1000ml Bag) 1,000 ml @ 1,000 mls/hr Q1H PRN IV hypotension; Start 09/13/16 at 08:39; Stop 09/13/16 at 14:38; Status DC Diphenhydramine HCl (Benadryl) 25 mg 1X PRN PRN IV ITCHING; Start 09/13/16 at 08:45; Stop 09/14/16 at 08:44; Status DC Diphenhydramine HCl (Benadryl) 25 mg 1X PRN PRN IV ITCHING; Start 09/13/16 at 08:45; Stop 09/14/16 at 08:44; Status DC Sodium Chloride (Normal Saline Flush) 10 ml 1X PRN PRN IV AP catheter pack; Start 09/13/16 at 08:45; Stop 09/14/16 at 08:44; Status DC Sodium Chloride (Normal Saline Flush) 10 ml 1X PRN PRN IV DECAL DECORATOR catheter pack; Start 09/13/16 at 08:45; Stop 09/14/16 at 08:44; Status DC Labetalol HCl (Normodyne) 10 mg PRN Q1HR PRN IVP SBP > 180; Start 09/13/16 at 08:45; Stop 09/14/16 at 08:44; Status DC Info (PHARMACY MONITORING -- do not chart) 1 each PRN DAILY PRN MC SEE COMMENTS ; Start 09/13/16 at 08:45; Status UNV Info (PHARMACY MONITORING -- do not chart) 1 each PRN DAILY PRN MC SEE COMMENTS ; Start 09/13/16 at 08:45; Status UNV Pantoprazole Sodium 40 mg 40 mg DAILYAC IVP Last administered on 09/16/16t 05: 57; Start 09/13/16 at 13:00; Stop 09/17/16 at 10:02; Status DC Sodium Chloride (Iv Sodium Chloride 0.9% 1000ml Bag) 1,000 ml @ 1,000 mls/hr Q1H PRN IV hypotension; Start 09/16/16 at 08:46; Stop 09/16/16 at 14:45; Status DC Diphenhydramine HCl (Benadryl) 25 mg 1X PRN PRN IV ITCHING; Start 09/16/16 at 09:00; Stop 09/17/16 at 08:59; Status DC Diphenhydramine HCl (Benadryl) 25 mg 1X PRN PRN IV ITCHING; Start 09/16/16 at 09:00; Stop 09/17/16 at 08:59; Status DC Sodium Chloride (Normal Saline Flush) 10 ml 1X PRN PRN IV AP catheter pack; Start 09/16/16 at 09:00; Stop 09/17/16 at 08:59; Status DC Sodium Chloride (Normal Saline Flush) 10 ml 1X PRN PRN IV DECAL DECORATOR catheter pack; Start 09/16/16 at 09:00; Stop 09/17/16 at 08:59; Status DC Info (PHARMACY MONITORING -- do not chart) 1 each PRN DAILY PRN MC SEE COMMENTS ; Start 09/16/16 at 09:00; Status UNV Info (PHARMACY MONITORING -- do not chart) 1 each PRN DAILY PRN MC SEE COMMENTS ; Start 09/16/16 at 09:00; Status UNV Darbepoetin Ernst (Aranesp) 60 mcg WEEKLYHS SQ Last administered on 09/23/16 20: 43; Start 09/16/16 at 21:00; Stop 09/26/16 at 11:05; Status DC Pantoprazole Sodium (Protonix) 40 mg DAILYAC PO Last administered on 09/26/16 08:43; Start 09/17/16 at 10:02 Fentanyl Citrate (Fentanyl 2ml Vial) 25 mcg PRN Q5MIN PRN IV MILD PAIN; Start 09/18/16 at 07:00; Stop 09/19/16 at 06:59; Status DC Fentanyl Citrate 50 mcg 50 mcg PRN Q5MIN PRN IV MODERATE PAIN; Start 09/18/16 at 07:00; Stop 09/19/16 at 06:59; Status DC Lactated Ringer's (Iv Lactated Ringers) 1,000 ml @ 0 mls/hr Q0M IV ; Start 09/18 at 07:00; Stop 09/18/16 at 18:59; Status DC Lidocaine HCl 2 ml 1X PRN PRN ID IV START; Start 09/18/16 at 07:00; Stop at 06:59; Status DC Prochlorperazine Edisylate (Compazine) 5 mg PACU PRN PRN IV NAUSEA; Start at 07:00; Stop 09/19/16 at 06:59; Status DC Dextrose 25 gm 25 gm STK-MED ONCE IV Last administered on 09/18/16 08:19; Start 09/18/16 at 08:19; Stop 09/18/16 at 08:20; Status DC Propofol (Diprivan) 20 ml @ As Directed STK-MED ONCE IV ; Start 09/18/16 at 11:13 ; Stop 09/18/16 at 11:14; Status DC Lidocaine HCl 5 ml 5 ml STK-MED ONCE .ROUTE ; Start 09/18/16 at 11:13; Stop at 11:14; Status DC Sodium Chloride 1,000 ml @ 100 mls/hr 1X ONCE IV Last administered on t 11:29; Start 09/18/16 at 11:30; Stop 09/18/16 at 21:29; Status DC Sodium Chloride (Iv Sodium Chloride 0.9% 1000ml Bag) 1,000 ml @ 1,000 mls/hr Q1H PRN IV hypotension; Start 09/18/16 at 13:47; Stop 09/18/16 at 19:46; Status DC Acetaminophen (Tylenol) 500 mg 1X PRN PRN PO MILD PAIN / TEMP; Start 09/18/16 at 14:00; Stop 09/19/16 at 13:59; Status DC Diphenhydramine HCl (Benadryl) 25 mg 1X PRN PRN IV ITCHING; Start 09/18/16 at 14 :00; Stop 09/19/16 at 13:59; Status DC Diphenhydramine HCl (Benadryl) 25 mg 1X PRN PRN IV ITCHING; Start 09/18/16 at 14 :00; Stop 09/19/16 at 13:59; Status DC Labetalol HCl 10 mg 10 mg PRN Q1HR PRN IVP SBP > 180; Start 09/18/16 at 14:00; Stop 09/19/16 at 13:59; Status DC Sodium Chloride (Iv Sodium Chloride 0.9% 1000ml Bag) 1,000 ml @ 400 mls/hr Q2H30M PRN IV PATENCY; Start 09/18/16 at 13:47; Stop 09/19/16 at 01:46; Status DC Info 1 each 1 each PRN DAILY PRN MC SEE COMMENTS; Start 09/18/16 at 14:00; Status UNV Sodium Chloride 1,000 ml @ 1,000 mls/hr Q1H PRN IV hypotension; Start 09/20/16 at 07:30; Stop 09/20/16 at 18:00; Status DC Albumin Human (Albuminar) 200 ml @ 200 mls/hr 1X PRN PRN IV Hypotension; Start 09/20/16 at 07:45; Stop 09/20/16 at 14:00; Status DC Acetaminophen (Tylenol) 500 mg 1X PRN PRN PO MILD PAIN / TEMP; Start 09/20/16 at 07:45; Stop 09/20/16 at 18:00; Status DC Diphenhydramine HCl (Benadryl) 25 mg 1X PRN PRN IV ITCHING; Start 09/20/16 at 07 :45; Stop 09/20/16 at 18:00; Status DC Diphenhydramine HCl (Benadryl) 25 mg 1X PRN PRN IV ITCHING; Start 09/20/16 at 07 :45; Stop 09/20/16 at 18:00; Status DC Sodium Chloride (Normal Saline Flush) 10 ml 1X PRN PRN IV AP catheter pack; Start 09/20/16 at 07:45; Stop 09/20/16 at 18:00; Status DC Sodium Chloride (Normal Saline Flush) 10 ml 1X PRN PRN IV DECAL DECORATOR catheter pack; Start 09/20/16 at 07:45; Stop 09/20/16 at 18:00; Status DC Labetalol HCl 10 mg 10 mg PRN Q1HR PRN IVP SBP > 180; Start 09/20/16 at 07:45; Stop 09/20/16 at 18:00; Status DC Sodium Chloride (Iv Sodium Chloride 0.9% 1000ml Bag) 1,000 ml @ 400 mls/hr Q2H30M PRN IV PATENCY; Start 09/20/16 at 07:45; Stop 09/20/16 at 18:00; Status DC Info (PHARMACY MONITORING -- do not chart) 1 each PRN DAILY PRN MC SEE COMMENTS ; Start 09/20/16 at 07:45; Status UNV Warfarin Sodium (Coumadin Per Pharmacy) 1 each PRN DAILY PRN MC SEE COMMENTS Last administered on 09/25/16t 12:19; Start 09/20/16 at 14:30 Warfarin Sodium (Coumadin) 2 mg 1X WARF ONCE PO Last administered on 09/20/16 17:27; Start 09/20/16 at 17:14; Stop 09/20/16 at 17:15; Status DC Methylprednisolone Acetate (Depo-Medrol 80mg Vial) 80 mg 1X ONCE IM ; Start 09/20/16 at 17:30; Stop 09/20/16 at 17:33; Status DC Methylprednisolone Acetate (Depo-Medrol 40mg Vial) 40 mg 1X ONCE IM ; Start 09/20/16 at 17:30; Stop 09/20/16 at 17:33; Status DC Bupivacaine HCl (Sensorcaine-Mpf 0.25%) 10 ml 1X ONCE IJ ; Start 09/20/16 at 17: 30; Stop 09/20/16 at 17:33; Status DC Warfarin Sodium (Coumadin) 2 mg 1X WARF ONCE PO Last administered on 09/21/16 17:14; Start 09/21/16 at 16:00; Stop 09/21/16 at 16:01; Status DC Warfarin Sodium 3 mg 3 mg 1X WARF ONCE PO Last administered on 09/22/16 17:28 ; Start 09/22/16 at 16:00; Stop 09/22/16 at 16:01; Status DC Sodium Chloride (Iv Sodium Chloride 0.9% 1000ml Bag) 1,000 ml @ 1,000 mls/hr Q1H PRN IV hypotension; Start 09/23/16 at 14:18; Stop 09/23/16 at 21:00; Status DC Sodium Chloride (Normal Saline Flush) 10 ml 1X PRN PRN IV AP catheter pack; Start 09/23/16 at 14:30; Stop 09/23/16 at 21:00; Status DC Sodium Chloride (Normal Saline Flush) 10 ml 1X PRN PRN IV DECAL DECORATOR catheter pack; Start 09/23/16 at 14:30; Stop 09/23/16 at 21:00; Status DC Info (PHARMACY MONITORING -- do not chart) 1 each PRN DAILY PRN MC SEE COMMENTS ; Start 09/23/16 at 14:30; Status UNV Info (PHARMACY MONITORING -- do not chart) 1 each PRN DAILY PRN MC SEE COMMENTS ; Start 09/23/16 at 14:30; Status UNV Warfarin Sodium (Coumadin) 3 mg 1X ONCE PO Last administered on 09/23/16 17:34 ; Start 09/23/16 at 17:00; Stop 09/23/16 at 17:01; Status DC Lidocaine/Sodium Bicarbonate (Buffered Lidocaine 1%) 20 ml STK-MED ONCE IJ ; Start 09/24/16 at 14:59; Stop 09/24/16 at 15:00; Status DC Fentanyl Citrate (Fentanyl 2ml Vial) 100 mcg STK-MED ONCE .ROUTE ; Start at 15:05; Stop 09/24/16 at 15:06; Status DC Midazolam HCl (Versed) 2 mg STK-MED ONCE .ROUTE ; Start 09/24/16 at 15:05; Stop 09/24/16 at 15:06; Status DC Lidocaine/Sodium Bicarbonate (Buffered Lidocaine 1%) 20 ml 1X ONCE IJ Last administered on 09/24/16 16:13; Start 09/24/16 at 16:15; Stop 09/24/16 at 16:16; Status DC Midazolam HCl (Versed) 2 mg 1X ONCE IV Last administered on 09/24/16 16:14; Start 09/24/16 at 16:15; Stop 09/24/16 at 16:16; Status DC Fentanyl Citrate (Fentanyl 2ml Vial) 100 mcg 1X ONCE IV Last administered on 16:15; Start 09/24/16 at 16:15; Stop 09/24/16 at 16:16; Status DC Warfarin Sodium 2 mg 2 mg 1X ONCE PO Last administered on 09/24/16 16:35; Start 09/24/16 at 17:00; Stop 09/24/16 at 17:01; Status DC Sodium Chloride 1,000 ml @ 1,000 mls/hr Q1H PRN IV hypotension; Start 09/25/16 at 08:38; Stop 09/25/16 at 14:37; Status DC Albumin Human (Albuminar) 200 ml @ 200 mls/hr 1X PRN PRN IV Hypotension; Start 09/25/16 at 08:45; Stop 09/25/16 at 14:44; Status DC Acetaminophen (Tylenol) 500 mg 1X PRN PRN PO MILD PAIN / TEMP; Start 09/25/16 at 08:45; Stop 09/26/16 at 08:44; Status DC Diphenhydramine HCl (Benadryl) 25 mg 1X PRN PRN IV ITCHING; Start 09/25/16 at 08 :45; Stop 09/26/16 at 08:44; Status DC Info (PHARMACY MONITORING -- do not chart) 1 each PRN DAILY PRN MC SEE COMMENTS ; Start 09/25/16 at 08:45; Status UNV Vancomycin HCl 1 each 1 each PRN DAILY PRN MC SEE COMMENTS Last administered on 09/25/16 14:37; Start 09/25/16 at 09:15 Piperacillin Sod/ Tazobactam Sod 2.25 gm/Sodium Chloride 50 ml @ 100 mls/hr Q6HRS IV Last administered on 09/26/16 12:19; Start 09/25/16 at 10:00 Vancomycin HCl/ Sodium Chloride (Iv Sodium Chloride 0.9% 500ml Bag) 500 ml @ 250 mls/hr ONCE ONCE IV Last administered on 09/25/16 13:32; Start 09/25/16 at 10:00; Stop 09/25/16 at 11:59; Status DC Warfarin Sodium (Coumadin) 4 mg 1X WARF ONCE PO ; Start 09/25/16 at 16:00; Stop 09/25/16 at 16:00; Status DC Warfarin Sodium 3 mg 3 mg 1X WARF ONCE PO Last administered on 09/25/16 16:00 ; Start 09/25/16 at 16:00; Stop 09/25/16 at 16:01; Status DC Magnesium Sulfate/ Dextrose (Magnesium Sulfate PREMIX 2GM) 50 ml @ 25 mls/hr PRN DAILY PRN IV for Mag < 1.7 on am labs; Start 09/26/16 at 11:15 Darbepoetin Ernst (Aranesp) 100 mcg Th SQ ; Start 09/26/16 at 21:00 Amlodipine Besylate (Norvasc) 2.5 mg DAILY PO Last administered on 09/26/16 12: 21; Start 09/26/16 at 11:00 Active Scripts Active Reported [Mylanta] Tylenol (Acetaminophen) 325 Mg Tablet 1 Tab PO PRN Q4HRS Fleet Enema (Na Phos,M-B/Na Phos,Di-Ba) 133 Ml Enema 1 Each RC ONCE Dulcolax (Bisacodyl) 10 Mg Supp.rect 10 Mg RC PRN DAILY PRN Zofran Odt (Ondansetron) 8 Mg Tab.rapdis 1 Tab PO PRN Q8HRS PRN Nitrostat (Nitroglycerin) 0.4 Mg Tab.subl 1 Tab SL UD Cyclobenzaprine Hcl 10 Mg Tablet 1 Tab PO TID Zepatier 50-100 mg Tablet (Elbasvir/Grazoprevir) 1 Each Tablet 1 Each PO [PhosLo] Coreg (Carvedilol) 25 Mg Tablet 1 Tab PO BID Aspirin 81 Mg Tab.chew 1 Tab PO DAILY Allopurinol 100 Mg Tablet 1 Tab PO DAILY Ventolin Hfa Inhaler (Albuterol Sulfate) 18 Gm Hfa.aer.ad 2 Puff INH Q4HRS Nephplex Rx Tablet (Vit B Cmplx No3/Fa/C/Biot/Zinc) 1 Each Tablet 1 Each PO Senokot (Sennosides) 8.6 Mg Tablet 1 Tab PO BID Oxycontin (Oxycodone HCl) 10 Mg Tab.er.12h 10 Mg PO BID Glycolax (Polyethylene Glycol 3350) 119 Gm Powder 17 Gm PO UD Percocet 10-325 Mg Tablet (Oxycodone/Acetaminophen) 1 Each Tablet 1 Tab PO Q4- 6HRS Vitamin D3 (Cholecalciferol (Vitamin D3)) 1,000 Unit Tablet 1 Tab PO DAILY Advair 250-50 Diskus (Fluticasone/Salmeterol) 1 Each Disk.w.dev 1 Puff IH BID Ipratropium Mackay 0.2 Mg/1 Ml Solution 1 Vial NEB QID Lidoderm (Lidocaine) 700 Mg Adh..patch 1 Patch TP DAILY Nortriptyline Hcl 25 Mg Capsule 1 Cap PO QHS Ciprofloxacin Hcl 250 Mg Tablet 1 Tab PO BID Warfarin Sodium 2 Mg Tablet 1.5 Mg PO DAILY Gabapentin 300 Mg Capsule 300 Mg PO TID Zoloft (Sertraline Hcl) 100 Mg Tablet 1 Tab PO DAILY Vitals/I & O Vital Sign - Last 24 Hours 09/25/16 09/25/16 09/25/16 09/25/16 15:00 16:00 17:02 19:53 Temp 97.4 98.0 97.4 98.0 Pulse 78 78 78 Resp 18 B/P 155/56 155/56 136/71 Pulse Ox 96 96 98 O2 Delivery Room Air Room Air O2 Flow Rate 97.0 09/25/16 09/25/16 09/26/16 09/26/16 21:12 23:36 01:26 03:01 Temp 98.0 98.3 98.0 98.3 Pulse 77 76 Resp 20 18 23 18 B/P 155/80 155/94 Pulse Ox 96 96 O2 Delivery Room Air Room Air Room Air 09/26/16 09/26/16 09/26/16 09/26/16 07:18 08:20 08:44 08:50 Temp 98.0 98.0 Pulse 88 88 Resp 16 15 B/P 166/73 166/73 Pulse Ox 94 O2 Delivery Room Air Room Air Room Air O2 Flow Rate 97.0 09/26/16 09/26/16 09/26/16 09/26/16 10:49 12:21 12:44 12:57 Temp 98.6 98.6 Pulse 71 71 Resp 18 B/P 162/73 162/73 Pulse Ox 97 99 99 O2 Delivery Room Air Room Air Room Air O2 Flow Rate 97.0 Intake and Output 09/25/16 09/25/16 09/26/16 15:00 23:00 07:00 Intake Total 240 ml 360 ml Balance 240 ml 360 ml ADRIANA WEST MD Sep 26, 2016 14:02
[2016-09-26] MEDS: VANCOMYCIN PER PHARMACY MC PRN (14:41)
[2016-09-26 15:01] VITALS: BP 140/71
--- NOTE | 2016-09-26 15:48 | RAD ---
EXAM: Left upper extremity hemodialysis fistula Doppler. HISTORY: Arteriovenous fistula assessment. COMPARISON: None. FINDINGS: Grayscale and Doppler analysis of the left upper extremity arteriovenous fistula was performed. There is a patent fistula between the brachial artery and the cephalic vein. The peak systolic velocity within the brachial and followed 168 cm/s. The greatest velocity within the graft itself is 290 cm/s in the midportion. The velocity within the cephalic venous outflow is 289 cm/s. There is no clear grayscale stenosis. IMPRESSION: 1. No clear stenosis is identified.
[2016-09-26] MEDS ORDERED: WARFARIN 5 MG TABLET. PO ONE (16:00)
[2016-09-26] MEDS: OXYCODONE/APAP 10/325 TABLET. PO PRN (16:14)
[2016-09-26 19:00] VITALS: BP 147/75
[2016-09-26] MEDS: NORTRIPTYLINE 25 MG CAPSULE PO SCH (20:38)
[2016-09-26] MEDS ORDERED: DARBEPOETIN ALFA 100 MCG/0.5 ML DISP.SYRIN. SQ SCH (21:00)
[2016-09-26 23:23] VITALS: BP 125/73
[2016-09-27 03:20] VITALS: BP 152/85
[2016-09-27] MEDS: OXYCODONE/APAP 10/325 TABLET. PO PRN ×2 (03:34→17:15)
[2016-09-27] MEDS: ONDANSETRON ODT 4 MG TAB.RAPDIS PO SCH ×3 (05:06→20:52)
[2016-09-27] MEDS: PIPERACILLIN/TAZOBACTAM 2.25 GM in IV NORMAL SALINE 50ML 50 ML IV SCH ×5 (05:06→18:42)
[2016-09-27 05:48] LABS: BASO % 1 % (0-3); EOS % 2 % (0-3); HEMOGLOBIN 7.3 g/dL (12.0-15.5); LYMPH # 1.6 x10^3/uL (1.0-4.8); LYMPH % 24 % (24-48); MEAN CORPUSCULAR HEMOGLOBIN 27 pg (25-35); MEAN CORPUSCULAR HGB CONC 32 g/dL (31-37); MEAN CORPUSCULAR VOLUME 86 fL (79-100); MONO % 11 % (0-9); NEUT % 63 % (31-73); PLATELET COUNT 227 x10^3/uL (140-400); RED BLOOD COUNT 2.67 x10^6/uL (3.50-5.40); RED CELL DISTRIBUTION WIDTH 17.4 % (11.5-14.5); WHITE BLOOD COUNT 6.8 x10^3/uL (4.0-11.0)
[2016-09-27 05:53] LABS: INR 1.6 (0.8-1.1); PROTHROMBIN TIME PATIENT 18.1 SEC (11.7-14.0)
[2016-09-27 06:25] LABS: ALBUMIN 1.7 g/dL (3.4-5.0); CALCIUM 7.8 mg/dL (8.5-10.1); CREATININE 3.1 mg/dL (0.6-1.0); GFR 18.5; PHOSPHORUS 2.8 mg/dL (2.6-4.7); POTASSIUM 3.6 mmol/L (3.5-5.1)
[2016-09-27 07:00] VITALS: BP 153/72
[2016-09-27] MEDS: IPRATRPIUM/ALBUTEROL 0.5/2.5MG 3 ML NEBU. NEB SCH ×4 (07:21→19:14)
[2016-09-27] MEDS: BUDESONIDE 0.5 MG/2 ML NEBU NEB SCH ×2 (07:21→19:14)
[2016-09-27] MEDS: LIDOCAINE (700MG/PATCH) PATCH. TP SCH (08:15)
[2016-09-27] MEDS: SERTRALINE 50 MG TABLET. PO SCH (08:15)
[2016-09-27] MEDS: GABAPENTIN 300 MG CAPSULE. PO SCH (08:15)
[2016-09-27] MEDS: CARVEDILOL 12.5 MG TABLET PO SCH ×2 (08:15→17:10)
[2016-09-27] MEDS: AMLODIPINE BESYLATE 5 MG TABLET PO SCH (08:16)
[2016-09-27] MEDS: OXYCODONE ER 10 MG TAB.ER.12H. PO SCH ×2 (08:16→20:52)
[2016-09-27] MEDS: PANTOPRAZOLE 40 MG TABLET. PO SCH (08:16)
[2016-09-27] MEDS: ALLOPURINOL 100 MG TABLET. PO SCH (08:16)
--- NOTE | 2016-09-27 09:28 | PDOC ---
Subjective: Subjective: No GI complaints. Objective: Vital Signs: Vital Signs Date Time Temp Pulse Resp B/P Pulse Ox O2 Delivery O2 Flow Rate FiO2 09/27/16 08:16 80 153/72 09/27/16 08:16 20 98 Room Air 97.0 09/27/16 07:00 96.7 96.7 Labs: Laboratory Tests Test 09/26/16 11:10 09/26/16 16:37 09/26/16 20:35 09/27/16 07:16 Glucose (Fingerstick) 71mg/dL (70-99) 116mg/dL (70-99) 118mg/dL (70-99) 112mg/dL (70-99) Imaging: Left upper extremity hemodialysis fistula Doppler. IMPRESSION: 1. No clear stenosis is identified. PE: GEN: NAD, laying in bed LUNGS: CTAB HEART: RRR ABD: S/ND/NT NEURO/PSYCH: A & O 3 A/P: Anemia -no further bleeding, Hgb stable at 7.3 on Coumadin w/ PPI -EGD 09/18 w/ non-erosive gastritis, reports normal colonoscopy @[facility] last year -suspect SB AVMs ?diskitis -s/p aspiration/biopsy L1-2 09/24, results pending -- No new GI recs. JORGE YANG Sep 27, 2016 09:28
--- NOTE | 2016-09-27 09:39 | PDOC ---
Infectious Disease Note Subjective Subjective feeling better ROS ROS GEN: Denies fevers, chills, sweats HEENT: Denies blurred vision, sore throat CV: Denies chest pain RESP: Denies shortness of air, cough GI: Denies n/v/d NEURO: Denies confusion, dizziness MSK: Denies weakness, joint pain/swelling Vital Sign Vital Signs Vital Signs Date Time Temp Pulse Resp B/P Pulse Ox O2 Delivery O2 Flow Rate FiO2 09/27/16 08:16 80 153/72 09/27/16 08:16 20 98 Room Air 97.0 09/27/16 07:00 96.7 96.7 Physical Exam PHYSICAL EXAM GENERAL: NAD, Alert HEENT: PERRL, OC/OP NECK: Supple, no JVD, no LN LUNGS: Clear HEART: S1S2, no gallop, no murmur ABD: Soft, NT, no organomegaly, no rebound EXT: No edema, no cyanosis [employer]: Alert, oriented x 3, no focal neurologic deficit SKIN: No rash IV: ok Labs Lab Laboratory Tests Test 09/26/16 11:10 09/26/16 16:37 09/26/16 20:35 09/27/16 05:00 Glucose (Fingerstick) 71mg/dL (70-99) 116mg/dL (70-99) 118mg/dL (70-99) White Blood Count 6.8x10^3/uL (4.0-11.0) Red Blood Count 2.67x10^6/uL (3.50-5.40) Hemoglobin 7.3g/dL (12.0-15.5) Hematocrit 23.0% (36.0-47.0) Mean Corpuscular Volume 86fL (79-100) Mean Corpuscular Hemoglobin 27pg (25-35) Mean Corpuscular Hemoglobin Concent 32g/dL (31-37) Red Cell Distribution Width 17.4% (11.5-14.5) Platelet Count 227x10^3/uL (140-400) Neutrophils (%) (Auto) 63% (31-73) Lymphocytes (%) (Auto) 24% (24-48) Monocytes (%) (Auto) 11% (0-9) Eosinophils (%) (Auto) 2% (0-3) Basophils (%) (Auto) 1% (0-3) Neutrophils # (Auto) 4.3x10^3uL (1.8-7.7) Lymphocytes # (Auto) 1.6x10^3/uL (1.0-4.8) Monocytes # (Auto) 0.7x10^3/uL (0.0-1.1) Eosinophils # (Auto) 0.1x10^3/uL (0.0-0.7) Basophils # (Auto) 0.0x10^3/uL (0.0-0.2) Prothrombin Time 18.1SEC (11.7-14.0) Prothromb Time International Ratio 1.6 (0.8-1.1) Sodium Level 139mmol/L (136-145) Potassium Level 3.6mmol/L (3.5-5.1) Chloride Level 101mmol/L (98-107) Carbon Dioxide Level 28mmol/L (21-32) Anion Gap 10 (6-14) Blood Urea Nitrogen 21mg/dL (7-20) Creatinine 3.1mg/dL (0.6-1.0) Estimated GFR (Cockcroft-Gault) 18.5 Glucose Level 99mg/dL (70-99) Calcium Level 7.8mg/dL (8.5-10.1) Phosphorus Level 2.8mg/dL (2.6-4.7) Magnesium Level 1.8mg/dL (1.8-2.4) Albumin 1.7g/dL (3.4-5.0) Test 09/27/16 07:16 Glucose (Fingerstick) 112mg/dL (70-99) Micro BC neg spine culture pending Objective Assessment ? Diskitis L 1-2, chronic back pain, had back surgery last year GI bleed ESRD on HD HTN Plan Plan of Care BC x 2 disk aspirate for bacterial, fungal and afb stain and culture, done neel and DINESH Pride MD Sep 27, 2016 09:39
[2016-09-27] MEDS ORDERED: IV NORMAL SALINE 1000ML BAG 1,000 ML IV PRN ×2 (09:47)
[2016-09-27] MEDS ORDERED: DIALYSIS PATIENT. MC PRN (10:00)
[2016-09-27] MEDS ORDERED: LABETALOL 20 MG/4 ML DISP.SYRIN. IVP PRN (10:00)
[2016-09-27] MEDS ORDERED: ACETAMINOPHEN 500 MG TABLET PO PRN (10:00)
[2016-09-27] MEDS ORDERED: DIPHENHYDRAMINE 50 MG/ML VIAL IV PRN ×2 (10:00)
[2016-09-27] MEDS ORDERED: ALBUMIN HUMAN 25% 200 ML IV PRN (10:00)
--- NOTE | 2016-09-27 10:18 | PDOC ---
PROGRESS NOTES Subjective Subjective She admits continued low back pain and weakness and some pain right shoulder. Objective Objective Vital Signs Date Time Temp Pulse Resp B/P Pulse Ox O2 Delivery O2 Flow Rate FiO2 09/27/16 08:16 80 153/72 09/27/16 08:16 20 98 Room Air 97.0 09/27/16 07:00 96.7 96.7 Intake and Output 09/27/16 07:00 Intake Total 1280 ml Output Total 2 ml Balance 1278 ml Intake Oral 1200 ml IV Total 80 ml Output Urine Total 1 ml Urine/Stool Mix 1 ml # Voids 1 # Bowel Movements 2 Physical Exam Physical Exam She is alert comfortable supine in bed and she continues with right rotator cuff muscle weakness and some limitation of right shoulder abduction and external rotation. Assessment Assessment Problems Medical Problems: (1) Anemia Status: Acute (2) Coagulopathy Status: Acute (3) Coumadin toxicity Status: Acute (4) Elevated INR (international normalized ratio) due to prior anticoagulant medication ingestion Status: Acute (5) ESRD on dialysis Status: Acute (6) GI bleed Status: Acute Plan Plan of Care Agree with plans for transfer to SNF when medically stable. Comment Review of Relevant I have reviewed the following items christi (where applicable) has been applied. Labs Laboratory Tests Test 09/25/16 17:28 09/25/16 21:11 09/26/16 04:55 09/26/16 07:19 Glucose (Fingerstick) 68mg/dL (70-99) 124mg/dL (70-99) 117mg/dL (70-99) Prothrombin Time 17.4SEC (11.7-14.0) Prothromb Time International Ratio 1.5 (0.8-1.1) Test 09/26/16 11:10 09/26/16 16:37 09/26/16 20:35 09/27/16 05:00 Glucose (Fingerstick) 71mg/dL (70-99) 116mg/dL (70-99) 118mg/dL (70-99) White Blood Count 6.8x10^3/uL (4.0-11.0) Red Blood Count 2.67x10^6/uL (3.50-5.40) Hemoglobin 7.3g/dL (12.0-15.5) Hematocrit 23.0% (36.0-47.0) Mean Corpuscular Volume 86fL (79-100) Mean Corpuscular Hemoglobin 27pg (25-35) Mean Corpuscular Hemoglobin Concent 32g/dL (31-37) Red Cell Distribution Width 17.4% (11.5-14.5) Platelet Count 227x10^3/uL (140-400) Neutrophils (%) (Auto) 63% (31-73) Lymphocytes (%) (Auto) 24% (24-48) Monocytes (%) (Auto) 11% (0-9) Eosinophils (%) (Auto) 2% (0-3) Basophils (%) (Auto) 1% (0-3) Neutrophils # (Auto) 4.3x10^3uL (1.8-7.7) Lymphocytes # (Auto) 1.6x10^3/uL (1.0-4.8) Monocytes # (Auto) 0.7x10^3/uL (0.0-1.1) Eosinophils # (Auto) 0.1x10^3/uL (0.0-0.7) Basophils # (Auto) 0.0x10^3/uL (0.0-0.2) Prothrombin Time 18.1SEC (11.7-14.0) Prothromb Time International Ratio 1.6 (0.8-1.1) Sodium Level 139mmol/L (136-145) Potassium Level 3.6mmol/L (3.5-5.1) Chloride Level 101mmol/L (98-107) Carbon Dioxide Level 28mmol/L (21-32) Anion Gap 10 (6-14) Blood Urea Nitrogen 21mg/dL (7-20) Creatinine 3.1mg/dL (0.6-1.0) Estimated GFR (Cockcroft-Gault) 18.5 Glucose Level 99mg/dL (70-99) Calcium Level 7.8mg/dL (8.5-10.1) Phosphorus Level 2.8mg/dL (2.6-4.7) Magnesium Level 1.8mg/dL (1.8-2.4) Albumin 1.7g/dL (3.4-5.0) Test 09/27/16 07:16 Glucose (Fingerstick) 112mg/dL (70-99) Laboratory Tests Test 09/26/16 11:10 3/9/17 16:37 09/26/16 20:35 09/27/16 05:00 Glucose (Fingerstick) 71mg/dL (70-99) 116mg/dL (70-99) 118mg/dL (70-99) White Blood Count 6.8x10^3/uL (4.0-11.0) Red Blood Count 2.67x10^6/uL (3.50-5.40) Hemoglobin 7.3g/dL (12.0-15.5) Hematocrit 23.0% (36.0-47.0) Mean Corpuscular Volume 86fL (79-100) Mean Corpuscular Hemoglobin 27pg (25-35) Mean Corpuscular Hemoglobin Concent 32g/dL (31-37) Red Cell Distribution Width 17.4% (11.5-14.5) Platelet Count 227x10^3/uL (140-400) Neutrophils (%) (Auto) 63% (31-73) Lymphocytes (%) (Auto) 24% (24-48) Monocytes (%) (Auto) 11% (0-9) Eosinophils (%) (Auto) 2% (0-3) Basophils (%) (Auto) 1% (0-3) Neutrophils # (Auto) 4.3x10^3uL (1.8-7.7) Lymphocytes # (Auto) 1.6x10^3/uL (1.0-4.8) Monocytes # (Auto) 0.7x10^3/uL (0.0-1.1) Eosinophils # (Auto) 0.1x10^3/uL (0.0-0.7) Basophils # (Auto) 0.0x10^3/uL (0.0-0.2) Prothrombin Time 18.1SEC (11.7-14.0) Prothromb Time International Ratio 1.6 (0.8-1.1) Sodium Level 139mmol/L (136-145) Potassium Level 3.6mmol/L (3.5-5.1) Chloride Level 101mmol/L (98-107) Carbon Dioxide Level 28mmol/L (21-32) Anion Gap 10 (6-14) Blood Urea Nitrogen 21mg/dL (7-20) Creatinine 3.1mg/dL (0.6-1.0) Estimated GFR (Cockcroft-Gault) 18.5 Glucose Level 99mg/dL (70-99) Calcium Level 7.8mg/dL (8.5-10.1) Phosphorus Level 2.8mg/dL (2.6-4.7) Magnesium Level 1.8mg/dL (1.8-2.4) Albumin 1.7g/dL (3.4-5.0) Test 09/27/16 07:16 Glucose (Fingerstick) 112mg/dL (70-99) Microbiology 09/24/16 Blood Culture - Preliminary, Resulted NO GROWTH AFTER 2 DAYS 09/24/16 Anaerobic/Aerobic Culture, Resulted Pending 09/24/16 Anaerobic Culture Result 1 (CONNOR), Resulted Pending 09/24/16 Aerobic Culture - Preliminary, Resulted 09/24/16 Aerobic Culture Result 1 (CONNOR) - Preliminary, Resulted Medications Current Medications Oxycodone/ Acetaminophen (Percocet 5/325) 1 tab 1X ONCE PO ; Start 09/09/16 at 19:00; Stop 09/09/16 at 19:01; Status DC Hydromorphone HCl 1 mg 1 mg 1X ONCE IV Last administered on 09/09/16 19:21; Start 09/09/16 at 19:15; Stop 09/09/16 at 19:16; Status DC Pantoprazole Sodium/Sodium Chloride (Protonix Iv/Iv Sodium Chloride 0.9% 100ml) 100 ml @ 10 mls/hr 1X ONCE IV Last administered on 09/09/16 19:51; Start at 19:30; Stop 09/10/16 at 05:29; Status DC Ondansetron HCl 4 mg 4 mg PRN Q8HRS PRN IV NAUSEA/VOMITING Last administered on 09/09/16 19:51; Start 09/09/16 at 19:30; Stop 09/10/16 at 19:29; Status DC Sodium Chloride (Iv Sodium Chloride 0.9% 1000ml Bag) 1,000 ml @ 100 mls/hr Q10H IV Last administered on 09/09/16 19:51; Start 09/09/16 at 19:30; Stop at 06:00; Status DC Acetaminophen (Tylenol) 650 mg PRN Q4HRS PRN PO FEVER Last administered on 09/09 19:52; Start 09/09/16 at 19:30; Stop 09/10/16 at 19:29; Status DC Multi-Ingredient Mouthwash/Gargle 15 ml 15 ml 1X ONCE SWSW Last administered on 09/09/16 23:41; Start 09/09/16 at 23:30; Stop 09/09/16 at 23:31; Status DC Phytonadione/ Sodium Chloride (Vitamin K/Iv Sodium Chloride 0.9% 50ml) 51 ml @ 102 mls/hr 1X ONCE IV Last administered on 09/10/16 02:07; Start 09/10/16 at 00:00; Stop 09/10/16 at 00:29; Status DC Acetaminophen (Tylenol) 325 mg PRN Q4HRS PO ; Start 09/09/16 at 23:30; Stop at 23:30; Status DC Allopurinol (Zyloprim) 100 mg DAILY PO Last administered on 09/27/16 08:16; Start 09/10/16 at 09:00 Bisacodyl (Dulcolax Supp) 10 mg PRN DAILY PRN RC CONSTIPATION; Start 09/09/16 at 23:30 Cyclobenzaprine HCl (Flexeril) 10 mg PRN TID PRN PO back pain Last administered on 09/21/16 15:14; Start 09/09/16 at 23:30 Gabapentin (Neurontin) 300 mg DAILY PO Last administered on 09/27/16 08:15; Start 09/10/16 at 09:00 Ipratropium Benedict (Atrovent) 0.2 mg QID NEB ; Start 09/10/16 at 09:00; Status UNV Lidocaine (Lidoderm) 1 patch DAILY TP Last administered on 09/27/16 08:15; Start 09/10/16 at 09:00 Nortriptyline HCl (Pamelor) 25 mg QHS PO Last administered on 09/26/16 20:38; Start 09/10/16 at 21:00 Oxycodone HCl (Oxycontin) 10 mg BID PO Last administered on 09/27/16 08:16; Start 09/10/16 at 09:00 Oxycodone/ Acetaminophen (Percocet 10/325) 1 tab PRN Q4HRS PRN PO SEVERE PAIN Last administered on 09/25/16 23:00; Start 09/09/16 at 23:30 Non-Formulary Medication 2 puff Q4HRS INH FOR ASTHMA; Start 09/10/16 at 00:00; Status UNV Carvedilol (Coreg) 25 mg BIDWMEALS PO Last administered on 09/27/16 08:15; Start 09/10/16 at 08:00 Non-Formulary Medication 1 puff BID IH ; Start 09/10/16 at 09:00; Status UNV Ondansetron HCl (Zofran Odt) 8 mg Q8HRS PO Last administered on 09/27/16 05:06 ; Start 09/10/16 at 06:00 Sertraline HCl (Zoloft) 100 mg DAILY PO Last administered on 09/27/16 08:15; Start 09/10/16 at 09:00 Labetalol HCl (Normodyne) 20 mg PRN Q2HR PRN IVP HYPERTENSION, SEE COMMENTS Last administered on 09/25/16 05:47; Start 09/09/16 at 23:30 Albuterol/ Ipratropium (Duoneb) 3 ml RTQID NEB Last administered on 09/27/16 07:21; Start 09/10/16 at 08:00 Budesonide (Pulmicort) 0.5 mg RTBID NEB Last administered on 09/27/16 07:21; Start 09/10/16 at 08:00 Albuterol Sulfate 2.5 mg 2.5 mg PRN Q4HRS PRN NEB SHORTNESS OF BREATH; Start at 23:30 Pantoprazole Sodium 80 mg/ Sodium Chloride 100 ml @ 10 mls/hr Q10H IV Last administered on 09/13/16 07:51; Start 09/10/16 at 10:00; Stop 09/13/16 at 09:59 ; Status DC Magnesium Sulfate/ Dextrose 50 ml @ 25 mls/hr PRN DAILY PRN IV for Mag < 1.7 on am labs; Start 09/10/16 at 10:00; Stop 09/22/16 at 11:36; Status DC Sodium Chloride (Iv Sodium Chloride 0.9% 1000ml Bag) 1,000 ml @ 1,000 mls/hr Q1H PRN IV hypotension; Start 09/11/16 at 08:50; Stop 09/11/16 at 14:49; Status DC Diphenhydramine HCl (Benadryl) 25 mg 1X PRN PRN IV ITCHING; Start 09/11/16 at 09:00; Stop 09/12/16 at 08:59; Status DC Diphenhydramine HCl (Benadryl) 25 mg 1X PRN PRN IV ITCHING; Start 09/11/16 at 09:00; Stop 09/12/16 at 08:59; Status DC Sodium Chloride (Normal Saline Flush) 10 ml 1X PRN PRN IV AP catheter pack; Start 09/11/16 at 09:00; Stop 09/12/16 at 08:59; Status DC Sodium Chloride (Normal Saline Flush) 10 ml 1X PRN PRN IV INFORMATION SYSTEMS SUPERVISOR catheter pack; Start 09/11/16 at 09:00; Stop 09/12/16 at 08:59; Status DC Labetalol HCl 10 mg 10 mg PRN Q1HR PRN IVP SBP > 180; Start 09/11/16 at 09:00; Stop 09/12/16 at 08:59; Status DC Sodium Chloride (Iv Sodium Chloride 0.9% 1000ml Bag) 1,000 ml @ 400 mls/hr Q2H30M PRN IV PATENCY; Start 09/11/16 at 08:50; Stop 09/11/16 at 20:49; Status DC Info (PHARMACY MONITORING -- do not chart) 1 each PRN DAILY PRN MC SEE COMMENTS ; Start 09/11/16 at 09:00 Info (PHARMACY MONITORING -- do not chart) 1 each PRN DAILY PRN MC SEE COMMENTS ; Start 09/11/16 at 09:00; Status UNV Sodium Cl/Sod Bicarb/Potass Cl/ PEG (Golytely) 4,000 ml 1X ONCE PO Last administered on 09/11/16t 17:13; Start 09/11/16 at 13:00; Stop 09/11/16 at 13:01 ; Status DC Fentanyl Citrate (Fentanyl 2ml Vial) 25 mcg PRN Q5MIN PRN IV MILD PAIN; Start 09/12/16 at 07:00; Stop 09/13/16 at 06:59; Status DC Fentanyl Citrate 50 mcg 50 mcg PRN Q5MIN PRN IV MODERATE PAIN; Start 09/12/16 at 07:00; Stop 09/13/16 at 06:59; Status DC Lactated Ringer's (Iv Lactated Ringers) 1,000 ml @ 0 mls/hr Q0M IV ; Start at 07:00; Stop 09/12/16 at 18:59; Status DC Lidocaine HCl 2 ml 1X PRN PRN ID IV START; Start 09/12/16 at 07:00; Stop at 06:59; Status DC Prochlorperazine Edisylate (Compazine) 5 mg PACU PRN PRN IV NAUSEA; Start 09/12 at 07:00; Stop 09/13/16 at 06:59; Status DC Pantoprazole Sodium 40 mg 40 mg DAILYAC IVP ; Start 09/13/16 at 07:30; Status UNV Magnesium Sulfate/ Dextrose 50 ml @ 25 mls/hr 1X ONCE IV ; Start 09/12/16 at 11 :30; Stop 09/12/16 at 13:29; Status DC Propofol 0 ml @ As Directed STK-MED ONCE IV ; Start 09/12/16 at 12:55; Stop at 12:56; Status DC Propofol (Diprivan) 20 ml @ As Directed STK-MED ONCE IV ; Start 09/12/16 at 12: 55; Stop 09/12/16 at 12:56; Status Cancel Lidocaine HCl (Lidocaine Pf 2% Vial) 5 ml STK-MED ONCE .ROUTE ; Start 09/12/16 at 12:55; Stop 09/12/16 at 12:56; Status DC Lorazepam (Ativan) 2 mg PRN Q4HRS PRN IV ANXIETY / AGITATION Last administered on 09/26/16t 03:00; Start 09/12/16 at 14:15 Lorazepam (Ativan) 2 mg Q4HRS PRN IV ANXIETY / AGITATION; Start 09/12/16 at 14: 15; Status UNV Haloperidol Lactate (Haldol) 2.5 mg PRN Q6HRS PRN IM AGITATION; Start 09/12/16 at 14:15; Stop 09/26/16 at 14:02; Status DC Haloperidol Lactate (Haldol) 2.5 mg PRN Q6HRS PRN IVP AGITATION; Start at 14:15; Stop 09/26/16 at 14:02; Status DC Lorazepam 2 mg 2 mg PRN Q4HRS PRN IM ANXIETY / AGITATION; Start 09/12/16 at 14: 30; Stop 09/17/16 at 14:37; Status DC Sodium Chloride (Iv Sodium Chloride 0.9% 1000ml Bag) 1,000 ml @ 1,000 mls/hr Q1H PRN IV hypotension; Start 09/13/16 at 08:39; Stop 09/13/16 at 14:38; Status DC Diphenhydramine HCl (Benadryl) 25 mg 1X PRN PRN IV ITCHING; Start 09/13/16 at 08:45; Stop 09/14/16 at 08:44; Status DC Diphenhydramine HCl (Benadryl) 25 mg 1X PRN PRN IV ITCHING; Start 09/13/16 at 08:45; Stop 09/14/16 at 08:44; Status DC Sodium Chloride (Normal Saline Flush) 10 ml 1X PRN PRN IV AP catheter pack; Start 09/13/16 at 08:45; Stop 09/14/16 at 08:44; Status DC Sodium Chloride (Normal Saline Flush) 10 ml 1X PRN PRN IV INFORMATION SYSTEMS SUPERVISOR catheter pack; Start 09/13/16 at 08:45; Stop 09/14/16 at 08:44; Status DC Labetalol HCl (Normodyne) 10 mg PRN Q1HR PRN IVP SBP > 180; Start 09/13/16 at 08:45; Stop 09/14/16 at 08:44; Status DC Info (PHARMACY MONITORING -- do not chart) 1 each PRN DAILY PRN MC SEE COMMENTS ; Start 09/13/16 at 08:45; Status UNV Info (PHARMACY MONITORING -- do not chart) 1 each PRN DAILY PRN MC SEE COMMENTS ; Start 09/13/16 at 08:45; Status UNV Pantoprazole Sodium 40 mg 40 mg DAILYAC IVP Last administered on 09/16/16t 05: 57; Start 09/13/16 at 13:00; Stop 09/17/16 at 10:02; Status DC Sodium Chloride (Iv Sodium Chloride 0.9% 1000ml Bag) 1,000 ml @ 1,000 mls/hr Q1H PRN IV hypotension; Start 09/16/16 at 08:46; Stop 09/16/16 at 14:45; Status DC Diphenhydramine HCl (Benadryl) 25 mg 1X PRN PRN IV ITCHING; Start 09/16/16 at 09:00; Stop 09/17/16 at 08:59; Status DC Diphenhydramine HCl (Benadryl) 25 mg 1X PRN PRN IV ITCHING; Start 09/16/16 at 09:00; Stop 09/17/16 at 08:59; Status DC Sodium Chloride (Normal Saline Flush) 10 ml 1X PRN PRN IV AP catheter pack; Start 09/16/16 at 09:00; Stop 09/17/16 at 08:59; Status DC Sodium Chloride (Normal Saline Flush) 10 ml 1X PRN PRN IV INFORMATION SYSTEMS SUPERVISOR catheter pack; Start 09/16/16 at 09:00; Stop 09/17/16 at 08:59; Status DC Info (PHARMACY MONITORING -- do not chart) 1 each PRN DAILY PRN MC SEE COMMENTS ; Start 09/16/16 at 09:00; Status UNV Info (PHARMACY MONITORING -- do not chart) 1 each PRN DAILY PRN MC SEE COMMENTS ; Start 09/16/16 at 09:00; Status UNV Darbepoetin Ernst (Aranesp) 60 mcg [id number] SQ Last administered on 09/23/16 20: 43; Start 09/16/16 at 21:00; Stop 09/26/16 at 11:05; Status DC Pantoprazole Sodium (Protonix) 40 mg DAILYAC PO Last administered on 09/27/16 08:16; Start 09/17/16 at 10:02 Fentanyl Citrate (Fentanyl 2ml Vial) 25 mcg PRN Q5MIN PRN IV MILD PAIN; Start 09/18/16 at 07:00; Stop 09/19/16 at 06:59; Status DC Fentanyl Citrate 50 mcg 50 mcg PRN Q5MIN PRN IV MODERATE PAIN; Start 09/18/16 at 07:00; Stop 09/19/16 at 06:59; Status DC Lactated Ringer's (Iv Lactated Ringers) 1,000 ml @ 0 mls/hr Q0M IV ; Start 09/18 at 07:00; Stop 09/18/16 at 18:59; Status DC Lidocaine HCl 2 ml 1X PRN PRN ID IV START; Start 09/18/16 at 07:00; Stop at 06:59; Status DC Prochlorperazine Edisylate (Compazine) 5 mg PACU PRN PRN IV NAUSEA; Start at 07:00; Stop 09/19/16 at 06:59; Status DC Dextrose 25 gm 25 gm STK-MED ONCE IV Last administered on 09/18/16 08:19; Start 09/18/16 at 08:19; Stop 09/18/16 at 08:20; Status DC Propofol (Diprivan) 20 ml @ As Directed STK-MED ONCE IV ; Start 09/18/16 at 11:13 ; Stop 09/18/16 at 11:14; Status DC Lidocaine HCl 5 ml 5 ml STK-MED ONCE .ROUTE ; Start 09/18/16 at 11:13; Stop at 11:14; Status DC Sodium Chloride 1,000 ml @ 100 mls/hr 1X ONCE IV Last administered on 11:29; Start 09/18/16 at 11:30; Stop 09/18/16 at 21:29; Status DC Sodium Chloride (Iv Sodium Chloride 0.9% 1000ml Bag) 1,000 ml @ 1,000 mls/hr Q1H PRN IV hypotension; Start 09/18/16 at 13:47; Stop 09/18/16 at 19:46; Status DC Acetaminophen (Tylenol) 500 mg 1X PRN PRN PO MILD PAIN / TEMP; Start 09/18/16 at 14:00; Stop 09/19/16 at 13:59; Status DC Diphenhydramine HCl (Benadryl) 25 mg 1X PRN PRN IV ITCHING; Start 09/18/16 at 14 :00; Stop 09/19/16 at 13:59; Status DC Diphenhydramine HCl (Benadryl) 25 mg 1X PRN PRN IV ITCHING; Start 09/18/16 at 14 :00; Stop 09/19/16 at 13:59; Status DC Labetalol HCl 10 mg 10 mg PRN Q1HR PRN IVP SBP > 180; Start 09/18/16 at 14:00; Stop 09/19/16 at 13:59; Status DC Sodium Chloride (Iv Sodium Chloride 0.9% 1000ml Bag) 1,000 ml @ 400 mls/hr Q2H30M PRN IV PATENCY; Start 09/18/16 at 13:47; Stop 09/19/16 at 01:46; Status DC Info 1 each 1 each PRN DAILY PRN MC SEE COMMENTS; Start 09/18/16 at 14:00; Status UNV Sodium Chloride 1,000 ml @ 1,000 mls/hr Q1H PRN IV hypotension; Start 09/20/16 at 07:30; Stop 09/20/16 at 18:00; Status DC Albumin Human (Albuminar) 200 ml @ 200 mls/hr 1X PRN PRN IV Hypotension; Start 09/20/16 at 07:45; Stop 09/20/16 at 14:00; Status DC Acetaminophen (Tylenol) 500 mg 1X PRN PRN PO MILD PAIN / TEMP; Start 09/20/16 at 07:45; Stop 09/20/16 at 18:00; Status DC Diphenhydramine HCl (Benadryl) 25 mg 1X PRN PRN IV ITCHING; Start 09/20/16 at 07 :45; Stop 09/20/16 at 18:00; Status DC Diphenhydramine HCl (Benadryl) 25 mg 1X PRN PRN IV ITCHING; Start 09/20/16 at 07 :45; Stop 09/20/16 at 18:00; Status DC Sodium Chloride (Normal Saline Flush) 10 ml 1X PRN PRN IV AP catheter pack; Start 09/20/16 at 07:45; Stop 09/20/16 at 18:00; Status DC Sodium Chloride (Normal Saline Flush) 10 ml 1X PRN PRN IV INFORMATION SYSTEMS SUPERVISOR catheter pack; Start 09/20/16 at 07:45; Stop 09/20/16 at 18:00; Status DC Labetalol HCl 10 mg 10 mg PRN Q1HR PRN IVP SBP > 180; Start 09/20/16 at 07:45; Stop 09/20/16 at 18:00; Status DC Sodium Chloride (Iv Sodium Chloride 0.9% 1000ml Bag) 1,000 ml @ 400 mls/hr Q2H30M PRN IV PATENCY; Start 09/20/16 at 07:45; Stop 09/20/16 at 18:00; Status DC Info (PHARMACY MONITORING -- do not chart) 1 each PRN DAILY PRN MC SEE COMMENTS ; Start 09/20/16 at 07:45; Status UNV Warfarin Sodium (Coumadin Per Pharmacy) 1 each PRN DAILY PRN MC SEE COMMENTS Last administered on 09/26/16 14:19; Start 09/20/16 at 14:30 Warfarin Sodium (Coumadin) 2 mg 1X WARF ONCE PO Last administered on 09/20/16 17:27; Start 09/20/16 at 17:14; Stop 09/20/16 at 17:15; Status DC Methylprednisolone Acetate (Depo-Medrol 80mg Vial) 80 mg 1X ONCE IM ; Start 09/20/16 at 17:30; Stop 09/20/16 at 17:33; Status DC Methylprednisolone Acetate (Depo-Medrol 40mg Vial) 40 mg 1X ONCE IM ; Start 09/20/16 at 17:30; Stop 09/20/16 at 17:33; Status DC Bupivacaine HCl (Sensorcaine-Mpf 0.25%) 10 ml 1X ONCE IJ ; Start 09/20/16 at 17: 30; Stop 09/20/16 at 17:33; Status DC Warfarin Sodium (Coumadin) 2 mg 1X WARF ONCE PO Last administered on 09/21/16 17:14; Start 09/21/16 at 16:00; Stop 09/21/16 at 16:01; Status DC Warfarin Sodium 3 mg 3 mg 1X WARF ONCE PO Last administered on 09/22/16 17:28 ; Start 09/22/16 at 16:00; Stop 09/22/16 at 16:01; Status DC Sodium Chloride (Iv Sodium Chloride 0.9% 1000ml Bag) 1,000 ml @ 1,000 mls/hr Q1H PRN IV hypotension; Start 09/23/16 at 14:18; Stop 09/23/16 at 21:00; Status DC Sodium Chloride (Normal Saline Flush) 10 ml 1X PRN PRN IV AP catheter pack; Start 09/23/16 at 14:30; Stop 09/23/16 at 21:00; Status DC Sodium Chloride (Normal Saline Flush) 10 ml 1X PRN PRN IV INFORMATION SYSTEMS SUPERVISOR catheter pack; Start 09/23/16 at 14:30; Stop 09/23/16 at 21:00; Status DC Info (PHARMACY MONITORING -- do not chart) 1 each PRN DAILY PRN MC SEE COMMENTS ; Start 09/23/16 at 14:30; Status UNV Info (PHARMACY MONITORING -- do not chart) 1 each PRN DAILY PRN MC SEE COMMENTS ; Start 09/23/16 at 14:30; Status UNV Warfarin Sodium (Coumadin) 3 mg 1X ONCE PO Last administered on 09/23/16 17:34 ; Start 09/23/16 at 17:00; Stop 09/23/16 at 17:01; Status DC Lidocaine/Sodium Bicarbonate (Buffered Lidocaine 1%) 20 ml STK-MED ONCE IJ ; Start 09/24/16 at 14:59; Stop 09/24/16 at 15:00; Status DC Fentanyl Citrate (Fentanyl 2ml Vial) 100 mcg STK-MED ONCE .ROUTE ; Start at 15:05; Stop 09/24/16 at 15:06; Status DC Midazolam HCl (Versed) 2 mg STK-MED ONCE .ROUTE ; Start 09/24/16 at 15:05; Stop 09/24/16 at 15:06; Status DC Lidocaine/Sodium Bicarbonate (Buffered Lidocaine 1%) 20 ml 1X ONCE IJ Last administered on 09/24/16 16:13; Start 09/24/16 at 16:15; Stop 09/24/16 at 16:16; Status DC Midazolam HCl (Versed) 2 mg 1X ONCE IV Last administered on 09/24/16 16:14; Start 09/24/16 at 16:15; Stop 09/24/16 at 16:16; Status DC Fentanyl Citrate (Fentanyl 2ml Vial) 100 mcg 1X ONCE IV Last administered on 16:15; Start 09/24/16 at 16:15; Stop 09/24/16 at 16:16; Status DC Warfarin Sodium 2 mg 2 mg 1X ONCE PO Last administered on 09/24/16 16:35; Start 09/24/16 at 17:00; Stop 09/24/16 at 17:01; Status DC Sodium Chloride 1,000 ml @ 1,000 mls/hr Q1H PRN IV hypotension; Start 09/25/16 at 08:38; Stop 09/25/16 at 14:37; Status DC Albumin Human (Albuminar) 200 ml @ 200 mls/hr 1X PRN PRN IV Hypotension; Start 09/25/16 at 08:45; Stop 09/25/16 at 14:44; Status DC Acetaminophen (Tylenol) 500 mg 1X PRN PRN PO MILD PAIN / TEMP; Start 09/25/16 at 08:45; Stop 09/26/16 at 08:44; Status DC Diphenhydramine HCl (Benadryl) 25 mg 1X PRN PRN IV ITCHING; Start 09/25/16 at 08 :45; Stop 09/26/16 at 08:44; Status DC Info (PHARMACY MONITORING -- do not chart) 1 each PRN DAILY PRN MC SEE COMMENTS ; Start 09/25/16 at 08:45; Status UNV Vancomycin HCl 1 each 1 each PRN DAILY PRN MC SEE COMMENTS Last administered on 09/26/16 14:41; Start 09/25/16 at 09:15 Piperacillin Sod/ Tazobactam Sod 2.25 gm/Sodium Chloride 50 ml @ 100 mls/hr Q6HRS IV Last administered on 09/27/16 05:06; Start 09/25/16 at 10:00 Vancomycin HCl/ Sodium Chloride (Iv Sodium Chloride 0.9% 500ml Bag) 500 ml @ 250 mls/hr ONCE ONCE IV Last administered on 09/25/16 13:32; Start 09/25/16 at 10:00; Stop 09/25/16 at 11:59; Status DC Warfarin Sodium (Coumadin) 4 mg 1X WARF ONCE PO ; Start 09/25/16 at 16:00; Stop 09/25/16 at 16:00; Status DC Warfarin Sodium 3 mg 3 mg 1X WARF ONCE PO Last administered on 09/25/16 16:00 ; Start 09/25/16 at 16:00; Stop 09/25/16 at 16:01; Status DC Magnesium Sulfate/ Dextrose (Magnesium Sulfate PREMIX 2GM) 50 ml @ 25 mls/hr PRN DAILY PRN IV for Mag < 1.7 on am labs; Start 09/26/16 at 11:15 Darbepoetin Ernst (Aranesp) 100 mcg Th SQ Last administered on 09/26/16 20:40; Start 09/26/16 at 21:00 Amlodipine Besylate (Norvasc) 2.5 mg DAILY PO Last administered on 09/26/16 12: 21; Start 09/26/16 at 11:00; Stop 09/26/16 at 14:02; Status DC Amlodipine Besylate (Norvasc) 5 mg DAILY PO Last administered on 09/27/16 08: 16; Start 09/27/16 at 09:00 Warfarin Sodium (Coumadin) 5 mg 1X WARF ONCE PO Last administered on 09/26/16 16:15; Start 09/26/16 at 16:00; Stop 09/26/16 at 16:01; Status DC Vancomycin HCl 1 each 1 each 1X ONCE MC ; Start 09/27/16 at 16:00; Stop at 16:01 Sodium Chloride 1,000 ml @ 1,000 mls/hr Q1H PRN IV hypotension; Start 09/27/16 at 09:47; Stop 09/27/16 at 15:46 Albumin Human (Albuminar) 200 ml @ 200 mls/hr 1X PRN PRN IV Hypotension; Start 09/27/16 at 10:00; Stop 09/27/16 at 15:59 Acetaminophen (Tylenol) 500 mg 1X PRN PRN PO MILD PAIN / TEMP; Start 09/27/16 at 10:00; Stop 09/28/16 at 09:59 Diphenhydramine HCl (Benadryl) 25 mg 1X PRN PRN IV ITCHING; Start 09/27/16 at 10:00; Stop 09/28/16 at 09:59 Diphenhydramine HCl (Benadryl) 25 mg 1X PRN PRN IV ITCHING; Start 09/27/16 at 10:00; Stop 09/28/16 at 09:59 Labetalol HCl 10 mg 10 mg PRN Q1HR PRN IVP SBP > 180; Start 09/27/16 at 10:00; Stop 09/28/16 at 09:59 Sodium Chloride (Iv Sodium Chloride 0.9% 1000ml Bag) 1,000 ml @ 400 mls/hr Q2H30M PRN IV PATENCY; Start 09/27/16 at 09:47; Stop 09/27/16 at 21:46 Info (PHARMACY MONITORING -- do not chart) 1 each PRN DAILY PRN MC SEE COMMENTS ; Start 09/27/16 at 10:00; Status UNV Active Scripts Active Reported [Mylanta] Tylenol (Acetaminophen) 325 Mg Tablet 1 Tab PO PRN Q4HRS Fleet Enema (Na Phos,M-B/Na Phos,Di-Ba) 133 Ml Enema 1 Each RC ONCE Dulcolax (Bisacodyl) 10 Mg Supp.rect 10 Mg RC PRN DAILY PRN Zofran Odt (Ondansetron) 8 Mg Tab.rapdis 1 Tab PO PRN Q8HRS PRN Nitrostat (Nitroglycerin) 0.4 Mg Tab.subl 1 Tab SL UD Cyclobenzaprine Hcl 10 Mg Tablet 1 Tab PO TID Zepatier 50-100 mg Tablet (Elbasvir/Grazoprevir) 1 Each Tablet 1 Each PO [PhosLo] Coreg (Carvedilol) 25 Mg Tablet 1 Tab PO BID Aspirin 81 Mg Tab.chew 1 Tab PO DAILY Allopurinol 100 Mg Tablet 1 Tab PO DAILY Ventolin Hfa Inhaler (Albuterol Sulfate) 18 Gm Hfa.aer.ad 2 Puff INH Q4HRS Nephplex Rx Tablet (Vit B Cmplx No3/Fa/C/Biot/Zinc) 1 Each Tablet 1 Each PO Senokot (Sennosides) 8.6 Mg Tablet 1 Tab PO BID Oxycontin (Oxycodone HCl) 10 Mg Tab.er.12h 10 Mg PO BID Glycolax (Polyethylene Glycol 3350) 119 Gm Powder 17 Gm PO UD Percocet 10-325 Mg Tablet (Oxycodone/Acetaminophen) 1 Each Tablet 1 Tab PO Q4- 6HRS Vitamin D3 (Cholecalciferol (Vitamin D3)) 1,000 Unit Tablet 1 Tab PO DAILY Advair 250-50 Diskus (Fluticasone/Salmeterol) 1 Each Disk.w.dev 1 Puff IH BID Ipratropium Benedict 0.2 Mg/1 Ml Solution 1 Vial NEB QID Lidoderm (Lidocaine) 700 Mg Adh..patch 1 Patch TP DAILY Nortriptyline Hcl 25 Mg Capsule 1 Cap PO QHS Ciprofloxacin Hcl 250 Mg Tablet 1 Tab PO BID Warfarin Sodium 2 Mg Tablet 1.5 Mg PO DAILY Gabapentin 300 Mg Capsule 300 Mg PO TID Zoloft (Sertraline Hcl) 100 Mg Tablet 1 Tab PO DAILY Vitals/I & O Vital Sign - Last 24 Hours 3/909/26/16 09/26/16 09/26/16 10:49 12:21 12:44 12:57 Temp 98.6 98.6 Pulse 71 71 Resp 18 B/P 162/73 162/73 Pulse Ox 97 99 99 O2 Delivery Room Air Room Air O2 Flow Rate 97.0 09/26/16 09/26/16 09/26/16 09/26/16 15:01 15:58 16:14 16:15 Temp 98.3 98.3 Pulse 77 77 Resp 18 B/P 140/71 140/71 Pulse Ox 96 98 O2 Delivery Room Air Room Air Room Air 09/26/16 09/26/16 09/26/16 09/26/16 17:14 19:00 19:11 19:13 Temp 98.0 98.0 Pulse 79 Resp 20 B/P 147/75 Pulse Ox 98 97 98 98 O2 Delivery Room Air Room Air Room Air O2 Flow Rate 97.0 09/26/16 09/26/16 09/27/16 09/27/16 20:38 23:23 01:29 03:20 Temp 98.0 97.6 98.0 97.6 Pulse 80 75 Resp 20 20 18 18 B/P 125/73 152/85 Pulse Ox 96 96 O2 Delivery Room Air Room Air Room Air Room Air 09/27/16 09/27/16 09/27/16 09/27/16 03:34 04:57 07:00 07:22 Temp 96.7 96.7 Pulse 80 Resp 21 20 16 B/P 153/72 Pulse Ox 98 98 O2 Delivery Room Air Room Air Room Air Room Air 09/27/16 09/27/16 09/27/16 09/27/16 08:00 08:15 08:16 08:16 Pulse 80 80 Resp 20 B/P 153/72 153/72 Pulse Ox 98 O2 Delivery Room Air Room Air O2 Flow Rate 97.0 97.0 Intake and Output 09/26/16 09/26/16 09/27/16 15:00 23:00 07:00 Intake Total 380 ml 800 ml 100 ml Output Total 2 ml Balance 378 ml 800 ml 100 ml CAROLANN PRUETT MD Sep 27, 2016 10:18
--- NOTE | 2016-09-27 11:01 | PDOC ---
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 Vitals Vital Signs Vital Signs Date Time Temp Pulse Resp B/P Pulse Ox O2 Delivery O2 Flow Rate FiO2 09/27/16 10:41 off unit 09/27/16 08:16 80 153/72 09/27/16 08:16 20 98 97.0 09/27/16 07:00 96.7 96.7 Labs Last Labs Laboratory Tests Test 09/25/16 17:28 09/25/16 21:11 09/26/16 04:55 09/26/16 07:19 Glucose (Fingerstick) 68mg/dL (70-99) 124mg/dL (70-99) 117mg/dL (70-99) Prothrombin Time 17.4SEC (11.7-14.0) Prothromb Time International Ratio 1.5 (0.8-1.1) Test 09/26/16 11:10 09/26/16 16:37 09/26/16 20:35 09/27/16 05:00 Glucose (Fingerstick) 71mg/dL (70-99) 116mg/dL (70-99) 118mg/dL (70-99) White Blood Count 6.8x10^3/uL (4.0-11.0) Red Blood Count 2.67x10^6/uL (3.50-5.40) Hemoglobin 7.3g/dL (12.0-15.5) Hematocrit 23.0% (36.0-47.0) Mean Corpuscular Volume 86fL (79-100) Mean Corpuscular Hemoglobin 27pg (25-35) Mean Corpuscular Hemoglobin Concent 32g/dL (31-37) Red Cell Distribution Width 17.4% (11.5-14.5) Platelet Count 227x10^3/uL (140-400) Neutrophils (%) (Auto) 63% (31-73) Lymphocytes (%) (Auto) 24% (24-48) Monocytes (%) (Auto) 11% (0-9) Eosinophils (%) (Auto) 2% (0-3) Basophils (%) (Auto) 1% (0-3) Neutrophils # (Auto) 4.3x10^3uL (1.8-7.7) Lymphocytes # (Auto) 1.6x10^3/uL (1.0-4.8) Monocytes # (Auto) 0.7x10^3/uL (0.0-1.1) Eosinophils # (Auto) 0.1x10^3/uL (0.0-0.7) Basophils # (Auto) 0.0x10^3/uL (0.0-0.2) Prothrombin Time 18.1SEC (11.7-14.0) Prothromb Time International Ratio 1.6 (0.8-1.1) Sodium Level 139mmol/L (136-145) Potassium Level 3.6mmol/L (3.5-5.1) Chloride Level 101mmol/L (98-107) Carbon Dioxide Level 28mmol/L (21-32) Anion Gap 10 (6-14) Blood Urea Nitrogen 21mg/dL (7-20) Creatinine 3.1mg/dL (0.6-1.0) Estimated GFR (Cockcroft-Gault) 18.5 Glucose Level 99mg/dL (70-99) Calcium Level 7.8mg/dL (8.5-10.1) Phosphorus Level 2.8mg/dL (2.6-4.7) Magnesium Level 1.8mg/dL (1.8-2.4) Albumin 1.7g/dL (3.4-5.0) Test 09/27/16 07:16 Glucose (Fingerstick) 112mg/dL (70-99) Laboratory Tests Test 09/26/16 11:10 09/26/16 16:37 09/26/16 20:35 09/27/16 05:00 Glucose (Fingerstick) 71mg/dL (70-99) 116mg/dL (70-99) 118mg/dL (70-99) White Blood Count 6.8x10^3/uL (4.0-11.0) Red Blood Count 2.67x10^6/uL (3.50-5.40) Hemoglobin 7.3g/dL (12.0-15.5) Hematocrit 23.0% (36.0-47.0) Mean Corpuscular Volume 86fL (79-100) Mean Corpuscular Hemoglobin 27pg (25-35) Mean Corpuscular Hemoglobin Concent 32g/dL (31-37) Red Cell Distribution Width 17.4% (11.5-14.5) Platelet Count 227x10^3/uL (140-400) Neutrophils (%) (Auto) 63% (31-73) Lymphocytes (%) (Auto) 24% (24-48) Monocytes (%) (Auto) 11% (0-9) Eosinophils (%) (Auto) 2% (0-3) Basophils (%) (Auto) 1% (0-3) Neutrophils # (Auto) 4.3x10^3uL (1.8-7.7) Lymphocytes # (Auto) 1.6x10^3/uL (1.0-4.8) Monocytes # (Auto) 0.7x10^3/uL (0.0-1.1) Eosinophils # (Auto) 0.1x10^3/uL (0.0-0.7) Basophils # (Auto) 0.0x10^3/uL (0.0-0.2) Prothrombin Time 18.1SEC (11.7-14.0) Prothromb Time International Ratio 1.6 (0.8-1.1) Sodium Level 139mmol/L (136-145) Potassium Level 3.6mmol/L (3.5-5.1) Chloride Level 101mmol/L (98-107) Carbon Dioxide Level 28mmol/L (21-32) Anion Gap 10 (6-14) Blood Urea Nitrogen 21mg/dL (7-20) Creatinine 3.1mg/dL (0.6-1.0) Estimated GFR (Cockcroft-Gault) 18.5 Glucose Level 99mg/dL (70-99) Calcium Level 7.8mg/dL (8.5-10.1) Phosphorus Level 2.8mg/dL (2.6-4.7) Magnesium Level 1.8mg/dL (1.8-2.4) Albumin 1.7g/dL (3.4-5.0) Test 09/27/16 07:16 Glucose (Fingerstick) 112mg/dL (70-99) Assessment Assessment Problems Medical Problems: (1) Anemia Status: Acute (2) Coagulopathy Status: Acute (3) Coumadin toxicity Status: Acute (4) Elevated INR (international normalized ratio) due to prior anticoagulant medication ingestion Status: Acute (5) ESRD on dialysis Status: Acute (6) GI bleed Status: Acute Problems: Plan Plan of Care Problems Medical Problems: (1) Anemia Status: Acute (2) Coagulopathy Status: Acute (3) Coumadin toxicity Status: Acute (4) Elevated INR (international normalized ratio) due to prior anticoagulant medication ingestion Status: Acute (5) ESRD on dialysis Status: Acute (6) GI bleed Status: Acute HERMELINDA MCINTYRE MD Sep 27, 2016 11:01
--- NOTE | 2016-09-27 14:25 | PDOC ---
PROGRESS NOTES Chief Complaint Chief Complaint 1. Acute blood loss anemia, GI bleed, s/p EGD 2. ESRD, on HD MWF 3. Coumadin coagulopathy, 4. Hypertension, comtrolled 5. Asthma, hx 6. Obesity 7. Back pain with possible discitis 8. A fib on coumadin 9. SNU resident 10. RCC vs renal complex cyst - NEW 11. Discsitis vs OM - back -NEW 12. right renal cysts plan: 1. fu with specialist, id, renal, gi 2. bone bx pending, on vanco , zosyn now 3. cont HD 4. gi stable hope to dc to SNF next Friday when cx is back. on coumadin, INR daily uro consulted , no intervention for now, fu as outpt in 6ms increase amlodipine to 5mg daily discussed with ID, either stay here till next week for cx or dc to SNF for iv abx and see ID as outpt. but her SNF wont take her for iv abx wo clear dates. keep pt here over the weekend. History of Present Illness History of Present Illness Out having HD, no acute issues per RN S/p IR back procedure yesterday Incidenatl RCC vs complex renal mass - urology has not seen pt yet CT: IMPRESSION 1. Marked discogenic disease with loss of intervertebral disc material and fluid signal at L1-L2, L2-L3 and L3-L4. There is bony endplate edema at L1-2 suggesting possible discitis and osteomyelitis. Recommend correlation with sed rate and CBC. If there is clinical in decision MR with contrast may be helpful. 2. 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 There appears to be compression of the intra foraminal course of the exiting nerve roots on the left at L3-L4 and L4-5 and on the right at L3-L4. 3. Complex cyst versus mass seen anteriorly in the right kidney. This is not well evaluated but could be a renal cell carcinoma. 4. Presacral edema is nonspecific and is of uncertain etiology. Vitals Vitals Vital Signs Date Time Temp Pulse Resp B/P Pulse Ox O2 Delivery O2 Flow Rate FiO2 09/27/16 12:12 98 Room Air 09/27/16 11:46 18 97.0 09/27/16 08:16 80 153/72 09/27/16 07:00 96.7 96.7 Physical Exam General: Alert, Oriented X3, Cooperative, No acute distress Heart: Normal S1, Normal S2 Lungs: Clear Abdomen: Normal bowel sounds, Soft, No tenderness, No hepatosplenomegaly Extremities: No clubbing, No cyanosis, Other (back, no spinal tenderness. ) Skin: No rashes, No significant lesion, Other Labs LABS Laboratory Tests Test 09/26/16 16:37 09/26/16 20:35 09/27/16 05:00 09/27/16 07:16 Glucose (Fingerstick) 116mg/dL (70-99) 118mg/dL (70-99) 112mg/dL (70-99) White Blood Count 6.8x10^3/uL (4.0-11.0) Red Blood Count 2.67x10^6/uL (3.50-5.40) Hemoglobin 7.3g/dL (12.0-15.5) Hematocrit 23.0% (36.0-47.0) Mean Corpuscular Volume 86fL (79-100) Mean Corpuscular Hemoglobin 27pg (25-35) Mean Corpuscular Hemoglobin Concent 32g/dL (31-37) Red Cell Distribution Width 17.4% (11.5-14.5) Platelet Count 227x10^3/uL (140-400) Neutrophils (%) (Auto) 63% (31-73) Lymphocytes (%) (Auto) 24% (24-48) Monocytes (%) (Auto) 11% (0-9) Eosinophils (%) (Auto) 2% (0-3) Basophils (%) (Auto) 1% (0-3) Neutrophils # (Auto) 4.3x10^3uL (1.8-7.7) Lymphocytes # (Auto) 1.6x10^3/uL (1.0-4.8) Monocytes # (Auto) 0.7x10^3/uL (0.0-1.1) Eosinophils # (Auto) 0.1x10^3/uL (0.0-0.7) Basophils # (Auto) 0.0x10^3/uL (0.0-0.2) Prothrombin Time 18.1SEC (11.7-14.0) Prothromb Time International Ratio 1.6 (0.8-1.1) Sodium Level 139mmol/L (136-145) Potassium Level 3.6mmol/L (3.5-5.1) Chloride Level 101mmol/L (98-107) Carbon Dioxide Level 28mmol/L (21-32) Anion Gap 10 (6-14) Blood Urea Nitrogen 21mg/dL (7-20) Creatinine 3.1mg/dL (0.6-1.0) Estimated GFR (Cockcroft-Gault) 18.5 Glucose Level 99mg/dL (70-99) Calcium Level 7.8mg/dL (8.5-10.1) Phosphorus Level 2.8mg/dL (2.6-4.7) Magnesium Level 1.8mg/dL (1.8-2.4) Albumin 1.7g/dL (3.4-5.0) Review of Systems Review of Systems no fever, chills, sob or chest pain Assessment and Plan Assessmemt and Plan Problems Medical Problems: (1) Anemia Status: Acute (2) Coagulopathy Status: Acute (3) Coumadin toxicity Status: Acute (4) Elevated INR (international normalized ratio) due to prior anticoagulant medication ingestion Status: Acute (5) ESRD on dialysis Status: Acute (6) GI bleed Status: Acute Problems: Comment Review of Relevant I have reviewed the following items christi (where applicable) has been applied. Labs Laboratory Tests Test 09/25/16 17:28 09/25/16 21:11 09/26/16 04:55 09/26/16 07:19 Glucose (Fingerstick) 68mg/dL (70-99) 124mg/dL (70-99) 117mg/dL (70-99) Prothrombin Time 17.4SEC (11.7-14.0) Prothromb Time International Ratio 1.5 (0.8-1.1) Test 09/26/16 11:10 09/26/16 16:37 09/26/16 20:35 09/27/16 05:00 Glucose (Fingerstick) 71mg/dL (70-99) 116mg/dL (70-99) 118mg/dL (70-99) White Blood Count 6.8x10^3/uL (4.0-11.0) Red Blood Count 2.67x10^6/uL (3.50-5.40) Hemoglobin 7.3g/dL (12.0-15.5) Hematocrit 23.0% (36.0-47.0) Mean Corpuscular Volume 86fL (79-100) Mean Corpuscular Hemoglobin 27pg (25-35) Mean Corpuscular Hemoglobin Concent 32g/dL (31-37) Red Cell Distribution Width 17.4% (11.5-14.5) Platelet Count 227x10^3/uL (140-400) Neutrophils (%) (Auto) 63% (31-73) Lymphocytes (%) (Auto) 24% (24-48) Monocytes (%) (Auto) 11% (0-9) Eosinophils (%) (Auto) 2% (0-3) Basophils (%) (Auto) 1% (0-3) Neutrophils # (Auto) 4.3x10^3uL (1.8-7.7) Lymphocytes # (Auto) 1.6x10^3/uL (1.0-4.8) Monocytes # (Auto) 0.7x10^3/uL (0.0-1.1) Eosinophils # (Auto) 0.1x10^3/uL (0.0-0.7) Basophils # (Auto) 0.0x10^3/uL (0.0-0.2) Prothrombin Time 18.1SEC (11.7-14.0) Prothromb Time International Ratio 1.6 (0.8-1.1) Sodium Level 139mmol/L (136-145) Potassium Level 3.6mmol/L (3.5-5.1) Chloride Level 101mmol/L (98-107) Carbon Dioxide Level 28mmol/L (21-32) Anion Gap 10 (6-14) Blood Urea Nitrogen 21mg/dL (7-20) Creatinine 3.1mg/dL (0.6-1.0) Estimated GFR (Cockcroft-Gault) 18.5 Glucose Level 99mg/dL (70-99) Calcium Level 7.8mg/dL (8.5-10.1) Phosphorus Level 2.8mg/dL (2.6-4.7) Magnesium Level 1.8mg/dL (1.8-2.4) Albumin 1.7g/dL (3.4-5.0) Test 09/27/16 07:16 Glucose (Fingerstick) 112mg/dL (70-99) Laboratory Tests Test 09/26/16 16:37 09/26/16 20:35 09/27/16 05:00 09/27/16 07:16 Glucose (Fingerstick) 116mg/dL (70-99) 118mg/dL (70-99) 112mg/dL (70-99) White Blood Count 6.8x10^3/uL (4.0-11.0) Red Blood Count 2.67x10^6/uL (3.50-5.40) Hemoglobin 7.3g/dL (12.0-15.5) Hematocrit 23.0% (36.0-47.0) Mean Corpuscular Volume 86fL (79-100) Mean Corpuscular Hemoglobin 27pg (25-35) Mean Corpuscular Hemoglobin Concent 32g/dL (31-37) Red Cell Distribution Width 17.4% (11.5-14.5) Platelet Count 227x10^3/uL (140-400) Neutrophils (%) (Auto) 63% (31-73) Lymphocytes (%) (Auto) 24% (24-48) Monocytes (%) (Auto) 11% (0-9) Eosinophils (%) (Auto) 2% (0-3) Basophils (%) (Auto) 1% (0-3) Neutrophils # (Auto) 4.3x10^3uL (1.8-7.7) Lymphocytes # (Auto) 1.6x10^3/uL (1.0-4.8) Monocytes # (Auto) 0.7x10^3/uL (0.0-1.1) Eosinophils # (Auto) 0.1x10^3/uL (0.0-0.7) Basophils # (Auto) 0.0x10^3/uL (0.0-0.2) Prothrombin Time 18.1SEC (11.7-14.0) Prothromb Time International Ratio 1.6 (0.8-1.1) Sodium Level 139mmol/L (136-145) Potassium Level 3.6mmol/L (3.5-5.1) Chloride Level 101mmol/L (98-107) Carbon Dioxide Level 28mmol/L (21-32) Anion Gap 10 (6-14) Blood Urea Nitrogen 21mg/dL (7-20) Creatinine 3.1mg/dL (0.6-1.0) Estimated GFR (Cockcroft-Gault) 18.5 Glucose Level 99mg/dL (70-99) Calcium Level 7.8mg/dL (8.5-10.1) Phosphorus Level 2.8mg/dL (2.6-4.7) Magnesium Level 1.8mg/dL (1.8-2.4) Albumin 1.7g/dL (3.4-5.0) Microbiology 09/24/16 Blood Culture - Preliminary, Resulted NO GROWTH AFTER 3 DAYS 09/24/16 Anaerobic/Aerobic Culture - Preliminary, Resulted 09/24/16 Anaerobic Culture Result 1 (CONNOR) - Preliminary, Resulted 09/24/16 Aerobic Culture - Preliminary, Resulted 09/24/16 Aerobic Culture Result 1 (CONNOR) - Preliminary, Resulted Medications Current Medications Oxycodone/ Acetaminophen (Percocet 5/325) 1 tab 1X ONCE PO ; Start 09/09/16 at 19:00; Stop 09/09/16 at 19:01; Status DC Hydromorphone HCl 1 mg 1 mg 1X ONCE IV Last administered on 09/09/16 19:21; Start 09/09/16 at 19:15; Stop 09/09/16 at 19:16; Status DC Pantoprazole Sodium/Sodium Chloride (Protonix Iv/Iv Sodium Chloride 0.9% 100ml) 100 ml @ 10 mls/hr 1X ONCE IV Last administered on 09/09/16 19:51; Start at 19:30; Stop 09/10/16 at 05:29; Status DC Ondansetron HCl 4 mg 4 mg PRN Q8HRS PRN IV NAUSEA/VOMITING Last administered on 09/09/16 19:51; Start 09/09/16 at 19:30; Stop 09/10/16 at 19:29; Status DC Sodium Chloride (Iv Sodium Chloride 0.9% 1000ml Bag) 1,000 ml @ 100 mls/hr Q10H IV Last administered on 09/09/16 19:51; Start 09/09/16 at 19:30; Stop at 06:00; Status DC Acetaminophen (Tylenol) 650 mg PRN Q4HRS PRN PO FEVER Last administered on 09/09 19:52; Start 09/09/16 at 19:30; Stop 09/10/16 at 19:29; Status DC Multi-Ingredient Mouthwash/Gargle 15 ml 15 ml 1X ONCE SWSW Last administered on 09/09/16 23:41; Start 09/09/16 at 23:30; Stop 09/09/16 at 23:31; Status DC Phytonadione/ Sodium Chloride (Vitamin K/Iv Sodium Chloride 0.9% 50ml) 51 ml @ 102 mls/hr 1X ONCE IV Last administered on 09/10/16 02:07; Start 09/10/16 at 00:00; Stop 09/10/16 at 00:29; Status DC Acetaminophen (Tylenol) 325 mg PRN Q4HRS PO ; Start 09/09/16 at 23:30; Stop at 23:30; Status DC Allopurinol (Zyloprim) 100 mg DAILY PO Last administered on 09/27/16 08:16; Start 09/10/16 at 09:00 Bisacodyl (Dulcolax Supp) 10 mg PRN DAILY PRN RC CONSTIPATION; Start 09/09/16 at 23:30 Cyclobenzaprine HCl (Flexeril) 10 mg PRN TID PRN PO back pain Last administered on 09/21/16 15:14; Start 09/09/16 at 23:30 Gabapentin (Neurontin) 300 mg DAILY PO Last administered on 09/27/16 08:15; Start 09/10/16 at 09:00 Ipratropium [place] (Atrovent) 0.2 mg QID NEB ; Start 09/10/16 at 09:00; Status UNV Lidocaine (Lidoderm) 1 patch DAILY TP Last administered on 09/27/16 08:15; Start 09/10/16 at 09:00 Nortriptyline HCl (Pamelor) 25 mg QHS PO Last administered on 09/26/16 20:38; Start 09/10/16 at 21:00 Oxycodone HCl (Oxycontin) 10 mg BID PO Last administered on 09/27/16 08:16; Start 09/10/16 at 09:00 Oxycodone/ Acetaminophen (Percocet 10/325) 1 tab PRN Q4HRS PRN PO SEVERE PAIN Last administered on 09/25/16 23:00; Start 09/09/16 at 23:30 Non-Formulary Medication 2 puff Q4HRS INH FOR ASTHMA; Start 09/10/16 at 00:00; Status UNV Carvedilol (Coreg) 25 mg BIDWMEALS PO Last administered on 09/27/16 08:15; Start 09/10/16 at 08:00 Non-Formulary Medication 1 puff BID IH ; Start 09/10/16 at 09:00; Status UNV Ondansetron HCl (Zofran Odt) 8 mg Q8HRS PO Last administered on 09/27/16 05:06 ; Start 09/10/16 at 06:00 Sertraline HCl (Zoloft) 100 mg DAILY PO Last administered on 09/27/16 08:15; Start 09/10/16 at 09:00 Labetalol HCl (Normodyne) 20 mg PRN Q2HR PRN IVP HYPERTENSION, SEE COMMENTS Last administered on 09/25/16 05:47; Start 09/09/16 at 23:30 Albuterol/ Ipratropium (Duoneb) 3 ml RTQID NEB Last administered on 09/27/16 12:10; Start 09/10/16 at 08:00 Budesonide (Pulmicort) 0.5 mg RTBID NEB Last administered on 09/27/16 07:21; Start 09/10/16 at 08:00 Albuterol Sulfate 2.5 mg 2.5 mg PRN Q4HRS PRN NEB SHORTNESS OF BREATH; Start at 23:30 Pantoprazole Sodium 80 mg/ Sodium Chloride 100 ml @ 10 mls/hr Q10H IV Last administered on 09/13/16 07:51; Start 09/10/16 at 10:00; Stop 09/13/16 at 09:59 ; Status DC Magnesium Sulfate/ Dextrose 50 ml @ 25 mls/hr PRN DAILY PRN IV for Mag < 1.7 on am labs; Start 09/10/16 at 10:00; Stop 09/22/16 at 11:36; Status DC Sodium Chloride (Iv Sodium Chloride 0.9% 1000ml Bag) 1,000 ml @ 1,000 mls/hr Q1H PRN IV hypotension; Start 09/11/16 at 08:50; Stop 09/11/16 at 14:49; Status DC Diphenhydramine HCl (Benadryl) 25 mg 1X PRN PRN IV ITCHING; Start 09/11/16 at 09:00; Stop 09/12/16 at 08:59; Status DC Diphenhydramine HCl (Benadryl) 25 mg 1X PRN PRN IV ITCHING; Start 09/11/16 at 09:00; Stop 09/12/16 at 08:59; Status DC Sodium Chloride (Normal Saline Flush) 10 ml 1X PRN PRN IV AP catheter pack; Start 09/11/16 at 09:00; Stop 09/12/16 at 08:59; Status DC Sodium Chloride (Normal Saline Flush) 10 ml 1X PRN PRN IV MAIL SUPERINTENDENT catheter pack; Start 09/11/16 at 09:00; Stop 09/12/16 at 08:59; Status DC Labetalol HCl 10 mg 10 mg PRN Q1HR PRN IVP SBP > 180; Start 09/11/16 at 09:00; Stop 09/12/16 at 08:59; Status DC Sodium Chloride (Iv Sodium Chloride 0.9% 1000ml Bag) 1,000 ml @ 400 mls/hr Q2H30M PRN IV PATENCY; Start 09/11/16 at 08:50; Stop 09/11/16 at 20:49; Status DC Info (PHARMACY MONITORING -- do not chart) 1 each PRN DAILY PRN MC SEE COMMENTS ; Start 09/11/16 at 09:00 Info (PHARMACY MONITORING -- do not chart) 1 each PRN DAILY PRN MC SEE COMMENTS ; Start 09/11/16 at 09:00; Status UNV Sodium Cl/Sod Bicarb/Potass Cl/ PEG (Golytely) 4,000 ml 1X ONCE PO Last administered on 09/11/16t 17:13; Start 09/11/16 at 13:00; Stop 09/11/16 at 13:01 ; Status DC Fentanyl Citrate (Fentanyl 2ml Vial) 25 mcg PRN Q5MIN PRN IV MILD PAIN; Start 09/12/16 at 07:00; Stop 09/13/16 at 06:59; Status DC Fentanyl Citrate 50 mcg 50 mcg PRN Q5MIN PRN IV MODERATE PAIN; Start 09/12/16 at 07:00; Stop 09/13/16 at 06:59; Status DC Lactated Ringer's (Iv Lactated Ringers) 1,000 ml @ 0 mls/hr Q0M IV ; Start at 07:00; Stop 09/12/16 at 18:59; Status DC Lidocaine HCl 2 ml 1X PRN PRN ID IV START; Start 09/12/16 at 07:00; Stop at 06:59; Status DC Prochlorperazine Edisylate (Compazine) 5 mg PACU PRN PRN IV NAUSEA; Start 09/12 at 07:00; Stop 09/13/16 at 06:59; Status DC Pantoprazole Sodium 40 mg 40 mg DAILYAC IVP ; Start 09/13/16 at 07:30; Status UNV Magnesium Sulfate/ Dextrose 50 ml @ 25 mls/hr 1X ONCE IV ; Start 09/12/16 at 11 :30; Stop 09/12/16 at 13:29; Status DC Propofol 0 ml @ As Directed STK-MED ONCE IV ; Start 09/12/16 at 12:55; Stop at 12:56; Status DC Propofol (Diprivan) 20 ml @ As Directed STK-MED ONCE IV ; Start 09/12/16 at 12: 55; Stop 09/12/16 at 12:56; Status Cancel Lidocaine HCl (Lidocaine Pf 2% Vial) 5 ml STK-MED ONCE .ROUTE ; Start 09/12/16 at 12:55; Stop 09/12/16 at 12:56; Status DC Lorazepam (Ativan) 2 mg PRN Q4HRS PRN IV ANXIETY / AGITATION Last administered on 09/26/16t 03:00; Start 09/12/16 at 14:15 Lorazepam (Ativan) 2 mg Q4HRS PRN IV ANXIETY / AGITATION; Start 09/12/16 at 14: 15; Status UNV Haloperidol Lactate (Haldol) 2.5 mg PRN Q6HRS PRN IM AGITATION; Start 09/12/16 at 14:15; Stop 09/26/16 at 14:02; Status DC Haloperidol Lactate (Haldol) 2.5 mg PRN Q6HRS PRN IVP AGITATION; Start at 14:15; Stop 09/26/16 at 14:02; Status DC Lorazepam 2 mg 2 mg PRN Q4HRS PRN IM ANXIETY / AGITATION; Start 09/12/16 at 14: 30; Stop 09/17/16 at 14:37; Status DC Sodium Chloride (Iv Sodium Chloride 0.9% 1000ml Bag) 1,000 ml @ 1,000 mls/hr Q1H PRN IV hypotension; Start 09/13/16 at 08:39; Stop 09/13/16 at 14:38; Status DC Diphenhydramine HCl (Benadryl) 25 mg 1X PRN PRN IV ITCHING; Start 09/13/16 at 08:45; Stop 09/14/16 at 08:44; Status DC Diphenhydramine HCl (Benadryl) 25 mg 1X PRN PRN IV ITCHING; Start 09/13/16 at 08:45; Stop 09/14/16 at 08:44; Status DC Sodium Chloride (Normal Saline Flush) 10 ml 1X PRN PRN IV AP catheter pack; Start 09/13/16 at 08:45; Stop 09/14/16 at 08:44; Status DC Sodium Chloride (Normal Saline Flush) 10 ml 1X PRN PRN IV MAIL SUPERINTENDENT catheter pack; Start 09/13/16 at 08:45; Stop 09/14/16 at 08:44; Status DC Labetalol HCl (Normodyne) 10 mg PRN Q1HR PRN IVP SBP > 180; Start 09/13/16 at 08:45; Stop 09/14/16 at 08:44; Status DC Info (PHARMACY MONITORING -- do not chart) 1 each PRN DAILY PRN MC SEE COMMENTS ; Start 09/13/16 at 08:45; Status UNV Info (PHARMACY MONITORING -- do not chart) 1 each PRN DAILY PRN MC SEE COMMENTS ; Start 09/13/16 at 08:45; Status UNV Pantoprazole Sodium 40 mg 40 mg DAILYAC IVP Last administered on 09/16/16t 05: 57; Start 09/13/16 at 13:00; Stop 09/17/16 at 10:02; Status DC Sodium Chloride (Iv Sodium Chloride 0.9% 1000ml Bag) 1,000 ml @ 1,000 mls/hr Q1H PRN IV hypotension; Start 09/16/16 at 08:46; Stop 09/16/16 at 14:45; Status DC Diphenhydramine HCl (Benadryl) 25 mg 1X PRN PRN IV ITCHING; Start 09/16/16 at 09:00; Stop 09/17/16 at 08:59; Status DC Diphenhydramine HCl (Benadryl) 25 mg 1X PRN PRN IV ITCHING; Start 09/16/16 at 09:00; Stop 09/17/16 at 08:59; Status DC Sodium Chloride (Normal Saline Flush) 10 ml 1X PRN PRN IV AP catheter pack; Start 09/16/16 at 09:00; Stop 09/17/16 at 08:59; Status DC Sodium Chloride (Normal Saline Flush) 10 ml 1X PRN PRN IV MAIL SUPERINTENDENT catheter pack; Start 09/16/16 at 09:00; Stop 09/17/16 at 08:59; Status DC Info (PHARMACY MONITORING -- do not chart) 1 each PRN DAILY PRN MC SEE COMMENTS ; Start 09/16/16 at 09:00; Status UNV Info (PHARMACY MONITORING -- do not chart) 1 each PRN DAILY PRN MC SEE COMMENTS ; Start 09/16/16 at 09:00; Status UNV Darbepoetin Ernst (Aranesp) 60 mcg [id number] SQ Last administered on 09/23/16 20: 43; Start 09/16/16 at 21:00; Stop 09/26/16 at 11:05; Status DC Pantoprazole Sodium (Protonix) 40 mg DAILYAC PO Last administered on 09/27/16 08:16; Start 09/17/16 at 10:02 Fentanyl Citrate (Fentanyl 2ml Vial) 25 mcg PRN Q5MIN PRN IV MILD PAIN; Start 09/18/16 at 07:00; Stop 09/19/16 at 06:59; Status DC Fentanyl Citrate 50 mcg 50 mcg PRN Q5MIN PRN IV MODERATE PAIN; Start 09/18/16 at 07:00; Stop 09/19/16 at 06:59; Status DC Lactated Ringer's (Iv Lactated Ringers) 1,000 ml @ 0 mls/hr Q0M IV ; Start 09/18 at 07:00; Stop 09/18/16 at 18:59; Status DC Lidocaine HCl 2 ml 1X PRN PRN ID IV START; Start 09/18/16 at 07:00; Stop at 06:59; Status DC Prochlorperazine Edisylate (Compazine) 5 mg PACU PRN PRN IV NAUSEA; Start at 07:00; Stop 09/19/16 at 06:59; Status DC Dextrose 25 gm 25 gm STK-MED ONCE IV Last administered on 09/18/16 08:19; Start 09/18/16 at 08:19; Stop 09/18/16 at 08:20; Status DC Propofol (Diprivan) 20 ml @ As Directed STK-MED ONCE IV ; Start 09/18/16 at 11:13 ; Stop 09/18/16 at 11:14; Status DC Lidocaine HCl 5 ml 5 ml STK-MED ONCE .ROUTE ; Start 09/18/16 at 11:13; Stop at 11:14; Status DC Sodium Chloride 1,000 ml @ 100 mls/hr 1X ONCE IV Last administered on 11:29; Start 09/18/16 at 11:30; Stop 09/18/16 at 21:29; Status DC Sodium Chloride (Iv Sodium Chloride 0.9% 1000ml Bag) 1,000 ml @ 1,000 mls/hr Q1H PRN IV hypotension; Start 09/18/16 at 13:47; Stop 09/18/16 at 19:46; Status DC Acetaminophen (Tylenol) 500 mg 1X PRN PRN PO MILD PAIN / TEMP; Start 09/18/16 at 14:00; Stop 09/19/16 at 13:59; Status DC Diphenhydramine HCl (Benadryl) 25 mg 1X PRN PRN IV ITCHING; Start 09/18/16 at 14 :00; Stop 09/19/16 at 13:59; Status DC Diphenhydramine HCl (Benadryl) 25 mg 1X PRN PRN IV ITCHING; Start 09/18/16 at 14 :00; Stop 09/19/16 at 13:59; Status DC Labetalol HCl 10 mg 10 mg PRN Q1HR PRN IVP SBP > 180; Start 09/18/16 at 14:00; Stop 09/19/16 at 13:59; Status DC Sodium Chloride (Iv Sodium Chloride 0.9% 1000ml Bag) 1,000 ml @ 400 mls/hr Q2H30M PRN IV PATENCY; Start 09/18/16 at 13:47; Stop 09/19/16 at 01:46; Status DC Info 1 each 1 each PRN DAILY PRN MC SEE COMMENTS; Start 09/18/16 at 14:00; Status UNV Sodium Chloride 1,000 ml @ 1,000 mls/hr Q1H PRN IV hypotension; Start 09/20/16 at 07:30; Stop 09/20/16 at 18:00; Status DC Albumin Human (Albuminar) 200 ml @ 200 mls/hr 1X PRN PRN IV Hypotension; Start 09/20/16 at 07:45; Stop 09/20/16 at 14:00; Status DC Acetaminophen (Tylenol) 500 mg 1X PRN PRN PO MILD PAIN / TEMP; Start 09/20/16 at 07:45; Stop 09/20/16 at 18:00; Status DC Diphenhydramine HCl (Benadryl) 25 mg 1X PRN PRN IV ITCHING; Start 09/20/16 at 07 :45; Stop 09/20/16 at 18:00; Status DC Diphenhydramine HCl (Benadryl) 25 mg 1X PRN PRN IV ITCHING; Start 09/20/16 at 07 :45; Stop 09/20/16 at 18:00; Status DC Sodium Chloride (Normal Saline Flush) 10 ml 1X PRN PRN IV AP catheter pack; Start 09/20/16 at 07:45; Stop 09/20/16 at 18:00; Status DC Sodium Chloride (Normal Saline Flush) 10 ml 1X PRN PRN IV MAIL SUPERINTENDENT catheter pack; Start 09/20/16 at 07:45; Stop 09/20/16 at 18:00; Status DC Labetalol HCl 10 mg 10 mg PRN Q1HR PRN IVP SBP > 180; Start 09/20/16 at 07:45; Stop 09/20/16 at 18:00; Status DC Sodium Chloride (Iv Sodium Chloride 0.9% 1000ml Bag) 1,000 ml @ 400 mls/hr Q2H30M PRN IV PATENCY; Start 09/20/16 at 07:45; Stop 09/20/16 at 18:00; Status DC Info (PHARMACY MONITORING -- do not chart) 1 each PRN DAILY PRN MC SEE COMMENTS ; Start 09/20/16 at 07:45; Status UNV Warfarin Sodium (Coumadin Per Pharmacy) 1 each PRN DAILY PRN MC SEE COMMENTS Last administered on 09/26/16 14:19; Start 09/20/16 at 14:30 Warfarin Sodium (Coumadin) 2 mg 1X WARF ONCE PO Last administered on 09/20/16 17:27; Start 09/20/16 at 17:14; Stop 09/20/16 at 17:15; Status DC Methylprednisolone Acetate (Depo-Medrol 80mg Vial) 80 mg 1X ONCE IM ; Start 09/20/16 at 17:30; Stop 09/20/16 at 17:33; Status DC Methylprednisolone Acetate (Depo-Medrol 40mg Vial) 40 mg 1X ONCE IM ; Start 09/20/16 at 17:30; Stop 09/20/16 at 17:33; Status DC Bupivacaine HCl (Sensorcaine-Mpf 0.25%) 10 ml 1X ONCE IJ ; Start 09/20/16 at 17: 30; Stop 09/20/16 at 17:33; Status DC Warfarin Sodium (Coumadin) 2 mg 1X WARF ONCE PO Last administered on 09/21/16 17:14; Start 09/21/16 at 16:00; Stop 09/21/16 at 16:01; Status DC Warfarin Sodium 3 mg 3 mg 1X WARF ONCE PO Last administered on 09/22/16 17:28 ; Start 09/22/16 at 16:00; Stop 09/22/16 at 16:01; Status DC Sodium Chloride (Iv Sodium Chloride 0.9% 1000ml Bag) 1,000 ml @ 1,000 mls/hr Q1H PRN IV hypotension; Start 09/23/16 at 14:18; Stop 09/23/16 at 21:00; Status DC Sodium Chloride (Normal Saline Flush) 10 ml 1X PRN PRN IV AP catheter pack; Start 09/23/16 at 14:30; Stop 09/23/16 at 21:00; Status DC Sodium Chloride (Normal Saline Flush) 10 ml 1X PRN PRN IV MAIL SUPERINTENDENT catheter pack; Start 09/23/16 at 14:30; Stop 09/23/16 at 21:00; Status DC Info (PHARMACY MONITORING -- do not chart) 1 each PRN DAILY PRN MC SEE COMMENTS ; Start 09/23/16 at 14:30; Status UNV Info (PHARMACY MONITORING -- do not chart) 1 each PRN DAILY PRN MC SEE COMMENTS ; Start 09/23/16 at 14:30; Status UNV Warfarin Sodium (Coumadin) 3 mg 1X ONCE PO Last administered on 09/23/16 17:34 ; Start 09/23/16 at 17:00; Stop 09/23/16 at 17:01; Status DC Lidocaine/Sodium Bicarbonate (Buffered Lidocaine 1%) 20 ml STK-MED ONCE IJ ; Start 09/24/16 at 14:59; Stop 09/24/16 at 15:00; Status DC Fentanyl Citrate (Fentanyl 2ml Vial) 100 mcg STK-MED ONCE .ROUTE ; Start at 15:05; Stop 09/24/16 at 15:06; Status DC Midazolam HCl (Versed) 2 mg STK-MED ONCE .ROUTE ; Start 09/24/16 at 15:05; Stop 09/24/16 at 15:06; Status DC Lidocaine/Sodium Bicarbonate (Buffered Lidocaine 1%) 20 ml 1X ONCE IJ Last administered on 09/24/16 16:13; Start 09/24/16 at 16:15; Stop 09/24/16 at 16:16; Status DC Midazolam HCl (Versed) 2 mg 1X ONCE IV Last administered on 09/24/16 16:14; Start 09/24/16 at 16:15; Stop 09/24/16 at 16:16; Status DC Fentanyl Citrate (Fentanyl 2ml Vial) 100 mcg 1X ONCE IV Last administered on 16:15; Start 09/24/16 at 16:15; Stop 09/24/16 at 16:16; Status DC Warfarin Sodium 2 mg 2 mg 1X ONCE PO Last administered on 09/24/16 16:35; Start 09/24/16 at 17:00; Stop 09/24/16 at 17:01; Status DC Sodium Chloride 1,000 ml @ 1,000 mls/hr Q1H PRN IV hypotension; Start 09/25/16 at 08:38; Stop 09/25/16 at 14:37; Status DC Albumin Human (Albuminar) 200 ml @ 200 mls/hr 1X PRN PRN IV Hypotension; Start 09/25/16 at 08:45; Stop 09/25/16 at 14:44; Status DC Acetaminophen (Tylenol) 500 mg 1X PRN PRN PO MILD PAIN / TEMP; Start 09/25/16 at 08:45; Stop 09/26/16 at 08:44; Status DC Diphenhydramine HCl (Benadryl) 25 mg 1X PRN PRN IV ITCHING; Start 09/25/16 at 08 :45; Stop 09/26/16 at 08:44; Status DC Info (PHARMACY MONITORING -- do not chart) 1 each PRN DAILY PRN MC SEE COMMENTS ; Start 09/25/16 at 08:45; Status UNV Vancomycin HCl 1 each 1 each PRN DAILY PRN MC SEE COMMENTS Last administered on 09/26/16 14:41; Start 09/25/16 at 09:15 Piperacillin Sod/ Tazobactam Sod 2.25 gm/Sodium Chloride 50 ml @ 100 mls/hr Q6HRS IV Last administered on 09/27/16 05:06; Start 09/25/16 at 10:00 Vancomycin HCl/ Sodium Chloride (Iv Sodium Chloride 0.9% 500ml Bag) 500 ml @ 250 mls/hr ONCE ONCE IV Last administered on 09/25/16 13:32; Start 09/25/16 at 10:00; Stop 09/25/16 at 11:59; Status DC Warfarin Sodium (Coumadin) 4 mg 1X WARF ONCE PO ; Start 09/25/16 at 16:00; Stop 09/25/16 at 16:00; Status DC Warfarin Sodium 3 mg 3 mg 1X WARF ONCE PO Last administered on 09/25/16 16:00 ; Start 09/25/16 at 16:00; Stop 09/25/16 at 16:01; Status DC Magnesium Sulfate/ Dextrose (Magnesium Sulfate PREMIX 2GM) 50 ml @ 25 mls/hr PRN DAILY PRN IV for Mag < 1.7 on am labs; Start 09/26/16 at 11:15 Darbepoetin Ernst (Aranesp) 100 mcg Th SQ Last administered on 09/26/16 20:40; Start 09/26/16 at 21:00 Amlodipine Besylate (Norvasc) 2.5 mg DAILY PO Last administered on 09/26/16 12: 21; Start 09/26/16 at 11:00; Stop 09/26/16 at 14:02; Status DC Amlodipine Besylate (Norvasc) 5 mg DAILY PO Last administered on 09/27/16 08: 16; Start 09/27/16 at 09:00 Warfarin Sodium (Coumadin) 5 mg 1X WARF ONCE PO Last administered on 09/26/16 16:15; Start 09/26/16 at 16:00; Stop 09/26/16 at 16:01; Status DC Vancomycin HCl 1 each 1 each 1X ONCE MC ; Start 09/27/16 at 16:00; Stop at 16:01 Sodium Chloride 1,000 ml @ 1,000 mls/hr Q1H PRN IV hypotension; Start 09/27/16 at 09:47; Stop 09/27/16 at 15:46 Albumin Human (Albuminar) 200 ml @ 200 mls/hr 1X PRN PRN IV Hypotension; Start 09/27/16 at 10:00; Stop 09/27/16 at 15:59 Acetaminophen (Tylenol) 500 mg 1X PRN PRN PO MILD PAIN / TEMP; Start 09/27/16 at 10:00; Stop 09/28/16 at 09:59 Diphenhydramine HCl (Benadryl) 25 mg 1X PRN PRN IV ITCHING; Start 09/27/16 at 10:00; Stop 09/28/16 at 09:59 Diphenhydramine HCl (Benadryl) 25 mg 1X PRN PRN IV ITCHING; Start 09/27/16 at 10:00; Stop 09/28/16 at 09:59 Labetalol HCl 10 mg 10 mg PRN Q1HR PRN IVP SBP > 180; Start 09/27/16 at 10:00; Stop 09/28/16 at 09:59 Sodium Chloride (Iv Sodium Chloride 0.9% 1000ml Bag) 1,000 ml @ 400 mls/hr Q2H30M PRN IV PATENCY; Start 09/27/16 at 09:47; Stop 09/27/16 at 21:46 Info (PHARMACY MONITORING -- do not chart) 1 each PRN DAILY PRN MC SEE COMMENTS ; Start 3/10/17 at 10:00; Status UNV Active Scripts Active Reported [Mylanta] Tylenol (Acetaminophen) 325 Mg Tablet 1 Tab PO PRN Q4HRS Fleet Enema (Na Phos,M-B/Na Phos,Di-Ba) 133 Ml Enema 1 Each RC ONCE Dulcolax (Bisacodyl) 10 Mg Supp.rect 10 Mg RC PRN DAILY PRN Zofran Odt (Ondansetron) 8 Mg Tab.rapdis 1 Tab PO PRN Q8HRS PRN Nitrostat (Nitroglycerin) 0.4 Mg Tab.subl 1 Tab SL UD Cyclobenzaprine Hcl 10 Mg Tablet 1 Tab PO TID Zepatier 50-100 mg Tablet (Elbasvir/Grazoprevir) 1 Each Tablet 1 Each PO [PhosLo] Coreg (Carvedilol) 25 Mg Tablet 1 Tab PO BID Aspirin 81 Mg Tab.chew 1 Tab PO DAILY Allopurinol 100 Mg Tablet 1 Tab PO DAILY Ventolin Hfa Inhaler (Albuterol Sulfate) 18 Gm Hfa.aer.ad 2 Puff INH Q4HRS Nephplex Rx Tablet (Vit B Cmplx No3/Fa/C/Biot/Zinc) 1 Each Tablet 1 Each PO Senokot (Sennosides) 8.6 Mg Tablet 1 Tab PO BID Oxycontin (Oxycodone HCl) 10 Mg Tab.er.12h 10 Mg PO BID Glycolax (Polyethylene Glycol 3350) 119 Gm Powder 17 Gm PO UD Percocet 10-325 Mg Tablet (Oxycodone/Acetaminophen) 1 Each Tablet 1 Tab PO Q4- 6HRS Vitamin D3 (Cholecalciferol (Vitamin D3)) 1,000 Unit Tablet 1 Tab PO DAILY Advair 250-50 Diskus (Fluticasone/Salmeterol) 1 Each Disk.w.dev 1 Puff IH BID Ipratropium [place] 0.2 Mg/1 Ml Solution 1 Vial NEB QID Lidoderm (Lidocaine) 700 Mg Adh..patch 1 Patch TP DAILY Nortriptyline Hcl 25 Mg Capsule 1 Cap PO QHS Ciprofloxacin Hcl 250 Mg Tablet 1 Tab PO BID Warfarin Sodium 2 Mg Tablet 1.5 Mg PO DAILY Gabapentin 300 Mg Capsule 300 Mg PO TID Zoloft (Sertraline Hcl) 100 Mg Tablet 1 Tab PO DAILY Vitals/I & O Vital Sign - Last 24 Hours 09/26/16 09/26/16 09/26/16 09/26/16 15:01 15:58 16:14 16:15 Temp 98.3 98.3 Pulse 77 77 Resp 18 B/P 140/71 140/71 Pulse Ox 96 98 O2 Delivery Room Air Room Air Room Air 09/26/16 09/26/16 09/26/16 09/26/16 17:14 19:00 19:11 19:13 Temp 98.0 98.0 Pulse 79 Resp 20 B/P 147/75 Pulse Ox 98 97 98 98 O2 Delivery Room Air Room Air Room Air O2 Flow Rate 97.0 09/26/16 09/26/16 09/27/16 09/27/16 20:38 23:23 03:20 03:34 Temp 98.0 97.6 98.0 97.6 Pulse 80 75 Resp 20 20 18 21 B/P 125/73 152/85 Pulse Ox 96 96 O2 Delivery Room Air Room Air Room Air Room Air 09/27/16 09/27/16 09/27/16 09/27/16 04:57 07:00 07:22 08:00 Temp 96.7 96.7 Pulse 80 Resp 20 16 B/P 153/72 Pulse Ox 98 98 O2 Delivery Room Air Room Air Room Air Room Air O2 Flow Rate 97.0 09/27/16 09/27/16 09/27/16 09/27/16 08:15 08:16 08:16 10:41 Pulse 80 80 Resp 20 B/P 153/72 153/72 Pulse Ox 98 O2 Delivery Room Air off unit O2 Flow Rate 97.0 09/27/16 09/27/16 11:46 12:12 Resp 18 Pulse Ox 98 98 O2 Delivery Room Air Room Air O2 Flow Rate 97.0 Intake and Output 09/26/16 09/26/16 09/27/16 15:00 23:00 07:00 Intake Total 380 ml 800 ml 100 ml Output Total 2 ml Balance 378 ml 800 ml 100 ml ADRIANA WEST MD Sep 27, 2016 14:25
[2016-09-27 15:00] VITALS: BP 169/71
[2016-09-27] MEDS ORDERED: VANCOMYCIN RANDOM LEVEL. MC ONE (16:00)
[2016-09-27] MEDS ORDERED: WARFARIN 5 MG TABLET. PO ONE (16:00)
[2016-09-27 19:37] VITALS: BP 125/67
[2016-09-27] MEDS ORDERED: VANCOMYCIN 1 GM in IV NORMAL SALINE 250ML 250 ML IV ONE (20:10)
[2016-09-27] MEDS: VANCOMYCIN PER PHARMACY MC PRN (20:10)
[2016-09-27] MEDS: NORTRIPTYLINE 25 MG CAPSULE PO SCH (20:52)
[2016-09-27 23:52] VITALS: BP 132/78
[2016-09-28] MEDS: PIPERACILLIN/TAZOBACTAM 2.25 GM in IV NORMAL SALINE 50ML 50 ML IV SCH ×4 (00:07→20:56)
[2016-09-28 03:14] VITALS: BP 166/88
[2016-09-28] MEDS: OXYCODONE/APAP 10/325 TABLET. PO PRN ×2 (05:54→13:27)
[2016-09-28] MEDS: ONDANSETRON ODT 4 MG TAB.RAPDIS PO SCH ×3 (05:54→21:03)
[2016-09-28 07:00] VITALS: BP 178/89
[2016-09-28 07:46] LABS: ALBUMIN 1.6 g/dL (3.4-5.0); CALCIUM 7.9 mg/dL (8.5-10.1); CREATININE 2.2 mg/dL (0.6-1.0); GFR 27.5; PHOSPHORUS 2.3 mg/dL (2.6-4.7); POTASSIUM 3.4 mmol/L (3.5-5.1)
[2016-09-28 07:51] LABS: INR 1.8 (0.8-1.1); PROTHROMBIN TIME PATIENT 19.9 SEC (11.7-14.0)
[2016-09-28] MEDS: VANCOMYCIN PER PHARMACY MC PRN (08:22)
[2016-09-28] MEDS: IPRATRPIUM/ALBUTEROL 0.5/2.5MG 3 ML NEBU. NEB SCH ×4 (09:05→21:04)
[2016-09-28] MEDS: BUDESONIDE 0.5 MG/2 ML NEBU NEB SCH ×2 (09:06→21:05)
[2016-09-28] MEDS: GABAPENTIN 300 MG CAPSULE. PO SCH (09:10)
[2016-09-28] MEDS: SERTRALINE 50 MG TABLET. PO SCH (09:10)
[2016-09-28] MEDS: OXYCODONE ER 10 MG TAB.ER.12H. PO SCH ×2 (09:11→20:57)
[2016-09-28] MEDS: ALLOPURINOL 100 MG TABLET. PO SCH (09:11)
[2016-09-28] MEDS: AMLODIPINE BESYLATE 5 MG TABLET PO SCH (09:11)
[2016-09-28] MEDS: CARVEDILOL 12.5 MG TABLET PO SCH ×2 (09:12→18:15)
[2016-09-28] MEDS: PANTOPRAZOLE 40 MG TABLET. PO SCH (09:12)
[2016-09-28] MEDS: LIDOCAINE (700MG/PATCH) PATCH. TP SCH (09:13)
[2016-09-28 11:00] VITALS: BP 149/81
--- NOTE | 2016-09-28 12:10 | PDOC ---
Infectious Disease Note Subjective Subjective Mild lower back pain Denies leg pain, weakness Some left knee pain s/p steroid injection about a week ago ROS ROS GEN: Denies fevers, chills, sweats HEENT: Denies sore throat CV: Denies chest pain RESP: Denies shortness of air, cough GI: Denies n/v/d Vital Sign Vital Signs Vital Signs Date Time Temp Pulse Resp B/P Pulse Ox O2 Delivery O2 Flow Rate FiO2 09/28/16 11:00 97.6 85 20 149/81 98 Room Air 97.6 09/27/16 18:15 97.0 Physical Exam PHYSICAL EXAM GENERAL: NAD, Alert HEENT: PERRL, OC/OP clear NECK: Supple, no JVD, no LN LUNGS: Clear HEART: S1S2, no gallop, no murmur ABD: Soft, NT, BS present EXT: No edema, no cyanosis. LUE fistula, bruising [employer]: Alert, oriented x 3, no focal neurologic deficit SKIN: No rash. Tattoo HDC clean Labs Lab Laboratory Tests Test 09/27/16 16:58 09/27/16 20:54 09/28/16 06:45 09/28/16 07:25 Glucose (Fingerstick) 83mg/dL (70-99) 105mg/dL (70-99) 80mg/dL (70-99) Prothrombin Time 19.9SEC (11.7-14.0) Prothromb Time International Ratio 1.8 (0.8-1.1) Sodium Level 136mmol/L (136-145) Potassium Level 3.4mmol/L (3.5-5.1) Chloride Level 103mmol/L (98-107) Carbon Dioxide Level 31mmol/L (21-32) Anion Gap 2 (6-14) Blood Urea Nitrogen 10mg/dL (7-20) Creatinine 2.2mg/dL (0.6-1.0) Estimated GFR (Cockcroft-Gault) 27.5 Glucose Level 99mg/dL (70-99) Calcium Level 7.9mg/dL (8.5-10.1) Phosphorus Level 2.3mg/dL (2.6-4.7) Magnesium Level 1.4mg/dL (1.8-2.4) Albumin 1.6g/dL (3.4-5.0) Test 09/28/16 10:31 Glucose (Fingerstick) 122mg/dL (70-99) Micro BLOOD CULTURE Preliminary NO GROWTH AFTER 4 DAYS spine ANAEROBIC-AEROBIC CULTURE Preliminary Preliminary report ANAEROBIC RES 1 Preliminary Comment No anaerobes recovered in 48 hours. AEROBIC CULT Preliminary Preliminary report AEROBIC RES 1 Preliminary Comment No growth in 48 hours. Objective Assessment ? Diskitis L 1-2, chronic back pain, had back surgery last year sed rate 92 09/23 -s/p aspiration & biopsy. 09/24. CX NGTD GI bleed ESRD on HD HTN Plan Plan of Care Cont vanc and Zosyn CX NGTD AV fistula OK to use per Vascular - would d/c HD cath if not needed Attending Co-Sign Attending Co-Sign The patient was seen and interviewed as well as examined at the bedside. The chart was reviewed. The case was discussed. Agree with the plan of care. SHIRA OG APRN Sep 28, 2016 12:10 BOUCHRA ZABALA MD Sep 28, 2016 14:20
[2016-09-28] MEDS ORDERED: POTASSIUM CHLORIDE 20 MEQ TABLET.ER. PO ONE (12:30)
--- NOTE | 2016-09-28 12:49 | PDOC ---
PROGRESS NOTES Subjective Subjective No new complaints. Objective Objective Vital Signs Date Time Temp Pulse Resp B/P Pulse Ox O2 Delivery O2 Flow Rate FiO2 09/28/16 12:31 97 Room Air 09/28/16 11:00 97.6 85 20 149/81 97.6 09/27/16 18:15 97.0 Intake and Output 09/28/16 07:00 Intake Total 1950 ml Output Total 3 ml Balance 1947 ml Intake Oral 1300 ml Other 650 ml Stool Total 1 ml Urine/Stool Mix 2 ml # Voids 2 # Bowel Movements 2 Physical Exam Physical Exam She is supine in bed and is comfortable and continues to require significant help with mobility and self care. Assessment Assessment Problems Medical Problems: (1) Anemia Status: Acute (2) Coagulopathy Status: Acute (3) Coumadin toxicity Status: Acute (4) Elevated INR (international normalized ratio) due to prior anticoagulant medication ingestion Status: Acute (5) ESRD on dialysis Status: Acute (6) GI bleed Status: Acute Plan Plan of Care To LTAC unit or SNF for continued care when medically stable. Comment Review of Relevant I have reviewed the following items christi (where applicable) has been applied. Labs Laboratory Tests Test 09/26/16 16:37 09/26/16 20:35 09/27/16 05:00 09/27/16 07:16 Glucose (Fingerstick) 116mg/dL (70-99) 118mg/dL (70-99) 112mg/dL (70-99) White Blood Count 6.8x10^3/uL (4.0-11.0) Red Blood Count 2.67x10^6/uL (3.50-5.40) Hemoglobin 7.3g/dL (12.0-15.5) Hematocrit 23.0% (36.0-47.0) Mean Corpuscular Volume 86fL (79-100) Mean Corpuscular Hemoglobin 27pg (25-35) Mean Corpuscular Hemoglobin Concent 32g/dL (31-37) Red Cell Distribution Width 17.4% (11.5-14.5) Platelet Count 227x10^3/uL (140-400) Neutrophils (%) (Auto) 63% (31-73) Lymphocytes (%) (Auto) 24% (24-48) Monocytes (%) (Auto) 11% (0-9) Eosinophils (%) (Auto) 2% (0-3) Basophils (%) (Auto) 1% (0-3) Neutrophils # (Auto) 4.3x10^3uL (1.8-7.7) Lymphocytes # (Auto) 1.6x10^3/uL (1.0-4.8) Monocytes # (Auto) 0.7x10^3/uL (0.0-1.1) Eosinophils # (Auto) 0.1x10^3/uL (0.0-0.7) Basophils # (Auto) 0.0x10^3/uL (0.0-0.2) Prothrombin Time 18.1SEC (11.7-14.0) Prothromb Time International Ratio 1.6 (0.8-1.1) Sodium Level 139mmol/L (136-145) Potassium Level 3.6mmol/L (3.5-5.1) Chloride Level 101mmol/L (98-107) Carbon Dioxide Level 28mmol/L (21-32) Anion Gap 10 (6-14) Blood Urea Nitrogen 21mg/dL (7-20) Creatinine 3.1mg/dL (0.6-1.0) Estimated GFR (Cockcroft-Gault) 18.5 Glucose Level 99mg/dL (70-99) Calcium Level 7.8mg/dL (8.5-10.1) Phosphorus Level 2.8mg/dL (2.6-4.7) Magnesium Level 1.8mg/dL (1.8-2.4) Albumin 1.7g/dL (3.4-5.0) Random Vancomycin Level 19.3mcg/mL Test 09/27/16 16:58 09/27/16 20:54 09/28/16 06:45 09/28/16 07:25 Glucose (Fingerstick) 83mg/dL (70-99) 105mg/dL (70-99) 80mg/dL (70-99) Prothrombin Time 19.9SEC (11.7-14.0) Prothromb Time International Ratio 1.8 (0.8-1.1) Sodium Level 136mmol/L (136-145) Potassium Level 3.4mmol/L (3.5-5.1) Chloride Level 103mmol/L (98-107) Carbon Dioxide Level 31mmol/L (21-32) Anion Gap 2 (6-14) Blood Urea Nitrogen 10mg/dL (7-20) Creatinine 2.2mg/dL (0.6-1.0) Estimated GFR (Cockcroft-Gault) 27.5 Glucose Level 99mg/dL (70-99) Calcium Level 7.9mg/dL (8.5-10.1) Phosphorus Level 2.3mg/dL (2.6-4.7) Magnesium Level 1.4mg/dL (1.8-2.4) Albumin 1.6g/dL (3.4-5.0) Test 09/28/16 10:31 Glucose (Fingerstick) 122mg/dL (70-99) Laboratory Tests Test 09/27/16 16:58 09/27/16 20:54 09/28/16 06:45 09/28/16 07:25 Glucose (Fingerstick) 83mg/dL (70-99) 105mg/dL (70-99) 80mg/dL (70-99) Prothrombin Time 19.9SEC (11.7-14.0) Prothromb Time International Ratio 1.8 (0.8-1.1) Sodium Level 136mmol/L (136-145) Potassium Level 3.4mmol/L (3.5-5.1) Chloride Level 103mmol/L (98-107) Carbon Dioxide Level 31mmol/L (21-32) Anion Gap 2 (6-14) Blood Urea Nitrogen 10mg/dL (7-20) Creatinine 2.2mg/dL (0.6-1.0) Estimated GFR (Cockcroft-Gault) 27.5 Glucose Level 99mg/dL (70-99) Calcium Level 7.9mg/dL (8.5-10.1) Phosphorus Level 2.3mg/dL (2.6-4.7) Magnesium Level 1.4mg/dL (1.8-2.4) Albumin 1.6g/dL (3.4-5.0) Test 09/28/16 10:31 Glucose (Fingerstick) 122mg/dL (70-99) Microbiology 09/24/16 Blood Culture - Preliminary, Resulted NO GROWTH AFTER 4 DAYS 09/24/16 Anaerobic/Aerobic Culture - Preliminary, Resulted 09/24/16 Anaerobic Culture Result 1 (CONNOR) - Preliminary, Resulted 09/24/16 Aerobic Culture - Preliminary, Resulted 09/24/16 Aerobic Culture Result 1 (CONNOR) - Preliminary, Resulted Medications Current Medications Oxycodone/ Acetaminophen (Percocet 5/325) 1 tab 1X ONCE PO ; Start 09/09/16 at 19:00; Stop 09/09/16 at 19:01; Status DC Hydromorphone HCl 1 mg 1 mg 1X ONCE IV Last administered on 09/09/16 19:21; Start 09/09/16 at 19:15; Stop 09/09/16 at 19:16; Status DC Pantoprazole Sodium/Sodium Chloride (Protonix Iv/Iv Sodium Chloride 0.9% 100ml) 100 ml @ 10 mls/hr 1X ONCE IV Last administered on 09/09/16 19:51; Start at 19:30; Stop 09/10/16 at 05:29; Status DC Ondansetron HCl 4 mg 4 mg PRN Q8HRS PRN IV NAUSEA/VOMITING Last administered on 09/09/16 19:51; Start 09/09/16 at 19:30; Stop 09/10/16 at 19:29; Status DC Sodium Chloride (Iv Sodium Chloride 0.9% 1000ml Bag) 1,000 ml @ 100 mls/hr Q10H IV Last administered on 09/09/16 19:51; Start 09/09/16 at 19:30; Stop at 06:00; Status DC Acetaminophen (Tylenol) 650 mg PRN Q4HRS PRN PO FEVER Last administered on 09/09 19:52; Start 09/09/16 at 19:30; Stop 09/10/16 at 19:29; Status DC Multi-Ingredient Mouthwash/Gargle 15 ml 15 ml 1X ONCE SWSW Last administered on 09/09/16 23:41; Start 09/09/16 at 23:30; Stop 09/09/16 at 23:31; Status DC Phytonadione/ Sodium Chloride (Vitamin K/Iv Sodium Chloride 0.9% 50ml) 51 ml @ 102 mls/hr 1X ONCE IV Last administered on 09/10/16 02:07; Start 09/10/16 at 00:00; Stop 09/10/16 at 00:29; Status DC Acetaminophen (Tylenol) 325 mg PRN Q4HRS PO ; Start 09/09/16 at 23:30; Stop at 23:30; Status DC Allopurinol (Zyloprim) 100 mg DAILY PO Last administered on 09/28/16 09:11; Start 09/10/16 at 09:00 Bisacodyl (Dulcolax Supp) 10 mg PRN DAILY PRN RC CONSTIPATION; Start 09/09/16 at 23:30 Cyclobenzaprine HCl (Flexeril) 10 mg PRN TID PRN PO back pain Last administered on 09/21/16 15:14; Start 09/09/16 at 23:30 Gabapentin (Neurontin) 300 mg DAILY PO Last administered on 09/28/16 09:10; Start 09/10/16 at 09:00 Ipratropium Ovando (Atrovent) 0.2 mg QID NEB ; Start 09/10/16 at 09:00; Status UNV Lidocaine (Lidoderm) 1 patch DAILY TP Last administered on 09/28/16 09:13; Start 09/10/16 at 09:00 Nortriptyline HCl (Pamelor) 25 mg QHS PO Last administered on 09/27/16 20:52; Start 09/10/16 at 21:00 Oxycodone HCl (Oxycontin) 10 mg BID PO Last administered on 09/28/16 09:11; Start 09/10/16 at 09:00 Oxycodone/ Acetaminophen (Percocet 10/325) 1 tab PRN Q4HRS PRN PO SEVERE PAIN Last administered on 09/28/16 05:54; Start 09/09/16 at 23:30 Non-Formulary Medication 2 puff Q4HRS INH FOR ASTHMA; Start 09/10/16 at 00:00; Status UNV Carvedilol (Coreg) 25 mg BIDWMEALS PO Last administered on 09/28/16 09:12; Start 09/10/16 at 08:00 Non-Formulary Medication 1 puff BID IH ; Start 09/10/16 at 09:00; Status UNV Ondansetron HCl (Zofran Odt) 8 mg Q8HRS PO Last administered on 09/27/16 05:06 ; Start 09/10/16 at 06:00 Sertraline HCl (Zoloft) 100 mg DAILY PO Last administered on 09/28/16 09:10; Start 09/10/16 at 09:00 Labetalol HCl (Normodyne) 20 mg PRN Q2HR PRN IVP HYPERTENSION, SEE COMMENTS Last administered on 09/25/16 05:47; Start 09/09/16 at 23:30 Albuterol/ Ipratropium (Duoneb) 3 ml RTQID NEB Last administered on 09/28/16 12:30; Start 09/10/16 at 08:00 Budesonide (Pulmicort) 0.5 mg RTBID NEB Last administered on 09/28/16 09:06; Start 09/10/16 at 08:00 Albuterol Sulfate 2.5 mg 2.5 mg PRN Q4HRS PRN NEB SHORTNESS OF BREATH; Start at 23:30 Pantoprazole Sodium 80 mg/ Sodium Chloride 100 ml @ 10 mls/hr Q10H IV Last administered on 09/13/16 07:51; Start 09/10/16 at 10:00; Stop 09/13/16 at 09:59 ; Status DC Magnesium Sulfate/ Dextrose 50 ml @ 25 mls/hr PRN DAILY PRN IV for Mag < 1.7 on am labs; Start 09/10/16 at 10:00; Stop 09/22/16 at 11:36; Status DC Sodium Chloride (Iv Sodium Chloride 0.9% 1000ml Bag) 1,000 ml @ 1,000 mls/hr Q1H PRN IV hypotension; Start 09/11/16 at 08:50; Stop 09/11/16 at 14:49; Status DC Diphenhydramine HCl (Benadryl) 25 mg 1X PRN PRN IV ITCHING; Start 09/11/16 at 09:00; Stop 09/12/16 at 08:59; Status DC Diphenhydramine HCl (Benadryl) 25 mg 1X PRN PRN IV ITCHING; Start 09/11/16 at 09:00; Stop 09/12/16 at 08:59; Status DC Sodium Chloride (Normal Saline Flush) 10 ml 1X PRN PRN IV AP catheter pack; Start 09/11/16 at 09:00; Stop 09/12/16 at 08:59; Status DC Sodium Chloride (Normal Saline Flush) 10 ml 1X PRN PRN IV PLUGGER MAN catheter pack; Start 09/11/16 at 09:00; Stop 09/12/16 at 08:59; Status DC Labetalol HCl 10 mg 10 mg PRN Q1HR PRN IVP SBP > 180; Start 09/11/16 at 09:00; Stop 09/12/16 at 08:59; Status DC Sodium Chloride (Iv Sodium Chloride 0.9% 1000ml Bag) 1,000 ml @ 400 mls/hr Q2H30M PRN IV PATENCY; Start 09/11/16 at 08:50; Stop 09/11/16 at 20:49; Status DC Info (PHARMACY MONITORING -- do not chart) 1 each PRN DAILY PRN MC SEE COMMENTS ; Start 09/11/16 at 09:00 Info (PHARMACY MONITORING -- do not chart) 1 each PRN DAILY PRN MC SEE COMMENTS ; Start 09/11/16 at 09:00; Status UNV Sodium Cl/Sod Bicarb/Potass Cl/ PEG (Golytely) 4,000 ml 1X ONCE PO Last administered on 09/11/16t 17:13; Start 09/11/16 at 13:00; Stop 09/11/16 at 13:01 ; Status DC Fentanyl Citrate (Fentanyl 2ml Vial) 25 mcg PRN Q5MIN PRN IV MILD PAIN; Start 09/12/16 at 07:00; Stop 09/13/16 at 06:59; Status DC Fentanyl Citrate 50 mcg 50 mcg PRN Q5MIN PRN IV MODERATE PAIN; Start 09/12/16 at 07:00; Stop 09/13/16 at 06:59; Status DC Lactated Ringer's (Iv Lactated Ringers) 1,000 ml @ 0 mls/hr Q0M IV ; Start at 07:00; Stop 09/12/16 at 18:59; Status DC Lidocaine HCl 2 ml 1X PRN PRN ID IV START; Start 09/12/16 at 07:00; Stop at 06:59; Status DC Prochlorperazine Edisylate (Compazine) 5 mg PACU PRN PRN IV NAUSEA; Start 09/12 at 07:00; Stop 09/13/16 at 06:59; Status DC Pantoprazole Sodium 40 mg 40 mg DAILYAC IVP ; Start 09/13/16 at 07:30; Status UNV Magnesium Sulfate/ Dextrose 50 ml @ 25 mls/hr 1X ONCE IV ; Start 09/12/16 at 11 :30; Stop 09/12/16 at 13:29; Status DC Propofol 0 ml @ As Directed STK-MED ONCE IV ; Start 09/12/16 at 12:55; Stop at 12:56; Status DC Propofol (Diprivan) 20 ml @ As Directed STK-MED ONCE IV ; Start 09/12/16 at 12: 55; Stop 09/12/16 at 12:56; Status Cancel Lidocaine HCl (Lidocaine Pf 2% Vial) 5 ml STK-MED ONCE .ROUTE ; Start 09/12/16 at 12:55; Stop 09/12/16 at 12:56; Status DC Lorazepam (Ativan) 2 mg PRN Q4HRS PRN IV ANXIETY / AGITATION Last administered on 09/26/16t 03:00; Start 09/12/16 at 14:15 Lorazepam (Ativan) 2 mg Q4HRS PRN IV ANXIETY / AGITATION; Start 09/12/16 at 14: 15; Status UNV Haloperidol Lactate (Haldol) 2.5 mg PRN Q6HRS PRN IM AGITATION; Start 09/12/16 at 14:15; Stop 09/26/16 at 14:02; Status DC Haloperidol Lactate (Haldol) 2.5 mg PRN Q6HRS PRN IVP AGITATION; Start at 14:15; Stop 09/26/16 at 14:02; Status DC Lorazepam 2 mg 2 mg PRN Q4HRS PRN IM ANXIETY / AGITATION; Start 09/12/16 at 14: 30; Stop 09/17/16 at 14:37; Status DC Sodium Chloride (Iv Sodium Chloride 0.9% 1000ml Bag) 1,000 ml @ 1,000 mls/hr Q1H PRN IV hypotension; Start 09/13/16 at 08:39; Stop 09/13/16 at 14:38; Status DC Diphenhydramine HCl (Benadryl) 25 mg 1X PRN PRN IV ITCHING; Start 09/13/16 at 08:45; Stop 09/14/16 at 08:44; Status DC Diphenhydramine HCl (Benadryl) 25 mg 1X PRN PRN IV ITCHING; Start 09/13/16 at 08:45; Stop 09/14/16 at 08:44; Status DC Sodium Chloride (Normal Saline Flush) 10 ml 1X PRN PRN IV AP catheter pack; Start 09/13/16 at 08:45; Stop 09/14/16 at 08:44; Status DC Sodium Chloride (Normal Saline Flush) 10 ml 1X PRN PRN IV PLUGGER MAN catheter pack; Start 09/13/16 at 08:45; Stop 09/14/16 at 08:44; Status DC Labetalol HCl (Normodyne) 10 mg PRN Q1HR PRN IVP SBP > 180; Start 09/13/16 at 08:45; Stop 09/14/16 at 08:44; Status DC Info (PHARMACY MONITORING -- do not chart) 1 each PRN DAILY PRN MC SEE COMMENTS ; Start 09/13/16 at 08:45; Status UNV Info (PHARMACY MONITORING -- do not chart) 1 each PRN DAILY PRN MC SEE COMMENTS ; Start 09/13/16 at 08:45; Status UNV Pantoprazole Sodium 40 mg 40 mg DAILYAC IVP Last administered on 09/16/16t 05: 57; Start 09/13/16 at 13:00; Stop 09/17/16 at 10:02; Status DC Sodium Chloride (Iv Sodium Chloride 0.9% 1000ml Bag) 1,000 ml @ 1,000 mls/hr Q1H PRN IV hypotension; Start 09/16/16 at 08:46; Stop 09/16/16 at 14:45; Status DC Diphenhydramine HCl (Benadryl) 25 mg 1X PRN PRN IV ITCHING; Start 09/16/16 at 09:00; Stop 09/17/16 at 08:59; Status DC Diphenhydramine HCl (Benadryl) 25 mg 1X PRN PRN IV ITCHING; Start 09/16/16 at 09:00; Stop 09/17/16 at 08:59; Status DC Sodium Chloride (Normal Saline Flush) 10 ml 1X PRN PRN IV AP catheter pack; Start 09/16/16 at 09:00; Stop 09/17/16 at 08:59; Status DC Sodium Chloride (Normal Saline Flush) 10 ml 1X PRN PRN IV PLUGGER MAN catheter pack; Start 09/16/16 at 09:00; Stop 09/17/16 at 08:59; Status DC Info (PHARMACY MONITORING -- do not chart) 1 each PRN DAILY PRN MC SEE COMMENTS ; Start 09/16/16 at 09:00; Status UNV Info (PHARMACY MONITORING -- do not chart) 1 each PRN DAILY PRN MC SEE COMMENTS ; Start 09/16/16 at 09:00; Status UNV Darbepoetin Ernst (Aranesp) 60 mcg [id number] SQ Last administered on 09/23/16 20: 43; Start 09/16/16 at 21:00; Stop 09/26/16 at 11:05; Status DC Pantoprazole Sodium (Protonix) 40 mg DAILYAC PO Last administered on 09/28/16 09:12; Start 09/17/16 at 10:02 Fentanyl Citrate (Fentanyl 2ml Vial) 25 mcg PRN Q5MIN PRN IV MILD PAIN; Start 09/18/16 at 07:00; Stop 09/19/16 at 06:59; Status DC Fentanyl Citrate 50 mcg 50 mcg PRN Q5MIN PRN IV MODERATE PAIN; Start 09/18/16 at 07:00; Stop 09/19/16 at 06:59; Status DC Lactated Ringer's (Iv Lactated Ringers) 1,000 ml @ 0 mls/hr Q0M IV ; Start 09/18 at 07:00; Stop 09/18/16 at 18:59; Status DC Lidocaine HCl 2 ml 1X PRN PRN ID IV START; Start 09/18/16 at 07:00; Stop at 06:59; Status DC Prochlorperazine Edisylate (Compazine) 5 mg PACU PRN PRN IV NAUSEA; Start at 07:00; Stop 09/19/16 at 06:59; Status DC Dextrose 25 gm 25 gm STK-MED ONCE IV Last administered on 09/18/16 08:19; Start 09/18/16 at 08:19; Stop 09/18/16 at 08:20; Status DC Propofol (Diprivan) 20 ml @ As Directed STK-MED ONCE IV ; Start 09/18/16 at 11:13 ; Stop 09/18/16 at 11:14; Status DC Lidocaine HCl 5 ml 5 ml STK-MED ONCE .ROUTE ; Start 09/18/16 at 11:13; Stop at 11:14; Status DC Sodium Chloride 1,000 ml @ 100 mls/hr 1X ONCE IV Last administered on t 11:29; Start 09/18/16 at 11:30; Stop 09/18/16 at 21:29; Status DC Sodium Chloride (Iv Sodium Chloride 0.9% 1000ml Bag) 1,000 ml @ 1,000 mls/hr Q1H PRN IV hypotension; Start 09/18/16 at 13:47; Stop 09/18/16 at 19:46; Status DC Acetaminophen (Tylenol) 500 mg 1X PRN PRN PO MILD PAIN / TEMP; Start 09/18/16 at 14:00; Stop 09/19/16 at 13:59; Status DC Diphenhydramine HCl (Benadryl) 25 mg 1X PRN PRN IV ITCHING; Start 09/18/16 at 14 :00; Stop 09/19/16 at 13:59; Status DC Diphenhydramine HCl (Benadryl) 25 mg 1X PRN PRN IV ITCHING; Start 09/18/16 at 14 :00; Stop 09/19/16 at 13:59; Status DC Labetalol HCl 10 mg 10 mg PRN Q1HR PRN IVP SBP > 180; Start 09/18/16 at 14:00; Stop 09/19/16 at 13:59; Status DC Sodium Chloride (Iv Sodium Chloride 0.9% 1000ml Bag) 1,000 ml @ 400 mls/hr Q2H30M PRN IV PATENCY; Start 09/18/16 at 13:47; Stop 09/19/16 at 01:46; Status DC Info 1 each 1 each PRN DAILY PRN MC SEE COMMENTS; Start 09/18/16 at 14:00; Status UNV Sodium Chloride 1,000 ml @ 1,000 mls/hr Q1H PRN IV hypotension; Start 09/20/16 at 07:30; Stop 09/20/16 at 18:00; Status DC Albumin Human (Albuminar) 200 ml @ 200 mls/hr 1X PRN PRN IV Hypotension; Start 09/20/16 at 07:45; Stop 09/20/16 at 14:00; Status DC Acetaminophen (Tylenol) 500 mg 1X PRN PRN PO MILD PAIN / TEMP; Start 09/20/16 at 07:45; Stop 09/20/16 at 18:00; Status DC Diphenhydramine HCl (Benadryl) 25 mg 1X PRN PRN IV ITCHING; Start 09/20/16 at 07 :45; Stop 09/20/16 at 18:00; Status DC Diphenhydramine HCl (Benadryl) 25 mg 1X PRN PRN IV ITCHING; Start 09/20/16 at 07 :45; Stop 09/20/16 at 18:00; Status DC Sodium Chloride (Normal Saline Flush) 10 ml 1X PRN PRN IV AP catheter pack; Start 09/20/16 at 07:45; Stop 09/20/16 at 18:00; Status DC Sodium Chloride (Normal Saline Flush) 10 ml 1X PRN PRN IV PLUGGER MAN catheter pack; Start 09/20/16 at 07:45; Stop 09/20/16 at 18:00; Status DC Labetalol HCl 10 mg 10 mg PRN Q1HR PRN IVP SBP > 180; Start 09/20/16 at 07:45; Stop 09/20/16 at 18:00; Status DC Sodium Chloride (Iv Sodium Chloride 0.9% 1000ml Bag) 1,000 ml @ 400 mls/hr Q2H30M PRN IV PATENCY; Start 09/20/16 at 07:45; Stop 09/20/16 at 18:00; Status DC Info (PHARMACY MONITORING -- do not chart) 1 each PRN DAILY PRN MC SEE COMMENTS ; Start 09/20/16 at 07:45; Status UNV Warfarin Sodium (Coumadin Per Pharmacy) 1 each PRN DAILY PRN MC SEE COMMENTS Last administered on 09/27/16 14:36; Start 09/20/16 at 14:30 Warfarin Sodium (Coumadin) 2 mg 1X WARF ONCE PO Last administered on 09/20/16 17:27; Start 09/20/16 at 17:14; Stop 09/20/16 at 17:15; Status DC Methylprednisolone Acetate (Depo-Medrol 80mg Vial) 80 mg 1X ONCE IM ; Start 09/20/16 at 17:30; Stop 09/20/16 at 17:33; Status DC Methylprednisolone Acetate (Depo-Medrol 40mg Vial) 40 mg 1X ONCE IM ; Start 09/20/16 at 17:30; Stop 09/20/16 at 17:33; Status DC Bupivacaine HCl (Sensorcaine-Mpf 0.25%) 10 ml 1X ONCE IJ ; Start 09/20/16 at 17: 30; Stop 09/20/16 at 17:33; Status DC Warfarin Sodium (Coumadin) 2 mg 1X WARF ONCE PO Last administered on 09/21/16 17:14; Start 09/21/16 at 16:00; Stop 09/21/16 at 16:01; Status DC Warfarin Sodium 3 mg 3 mg 1X WARF ONCE PO Last administered on 09/22/16 17:28 ; Start 09/22/16 at 16:00; Stop 09/22/16 at 16:01; Status DC Sodium Chloride (Iv Sodium Chloride 0.9% 1000ml Bag) 1,000 ml @ 1,000 mls/hr Q1H PRN IV hypotension; Start 09/23/16 at 14:18; Stop 09/23/16 at 21:00; Status DC Sodium Chloride (Normal Saline Flush) 10 ml 1X PRN PRN IV AP catheter pack; Start 09/23/16 at 14:30; Stop 09/23/16 at 21:00; Status DC Sodium Chloride (Normal Saline Flush) 10 ml 1X PRN PRN IV PLUGGER MAN catheter pack; Start 09/23/16 at 14:30; Stop 09/23/16 at 21:00; Status DC Info (PHARMACY MONITORING -- do not chart) 1 each PRN DAILY PRN MC SEE COMMENTS ; Start 09/23/16 at 14:30; Status UNV Info (PHARMACY MONITORING -- do not chart) 1 each PRN DAILY PRN MC SEE COMMENTS ; Start 09/23/16 at 14:30; Status UNV Warfarin Sodium (Coumadin) 3 mg 1X ONCE PO Last administered on 09/23/16 17:34 ; Start 09/23/16 at 17:00; Stop 09/23/16 at 17:01; Status DC Lidocaine/Sodium Bicarbonate (Buffered Lidocaine 1%) 20 ml STK-MED ONCE IJ ; Start 09/24/16 at 14:59; Stop 09/24/16 at 15:00; Status DC Fentanyl Citrate (Fentanyl 2ml Vial) 100 mcg STK-MED ONCE .ROUTE ; Start at 15:05; Stop 09/24/16 at 15:06; Status DC Midazolam HCl (Versed) 2 mg STK-MED ONCE .ROUTE ; Start 09/24/16 at 15:05; Stop 09/24/16 at 15:06; Status DC Lidocaine/Sodium Bicarbonate (Buffered Lidocaine 1%) 20 ml 1X ONCE IJ Last administered on 09/24/16 16:13; Start 09/24/16 at 16:15; Stop 09/24/16 at 16:16; Status DC Midazolam HCl (Versed) 2 mg 1X ONCE IV Last administered on 09/24/16 16:14; Start 09/24/16 at 16:15; Stop 09/24/16 at 16:16; Status DC Fentanyl Citrate (Fentanyl 2ml Vial) 100 mcg 1X ONCE IV Last administered on 16:15; Start 09/24/16 at 16:15; Stop 09/24/16 at 16:16; Status DC Warfarin Sodium 2 mg 2 mg 1X ONCE PO Last administered on 09/24/16 16:35; Start 09/24/16 at 17:00; Stop 09/24/16 at 17:01; Status DC Sodium Chloride 1,000 ml @ 1,000 mls/hr Q1H PRN IV hypotension; Start 09/25/16 at 08:38; Stop 09/25/16 at 14:37; Status DC Albumin Human (Albuminar) 200 ml @ 200 mls/hr 1X PRN PRN IV Hypotension; Start 09/25/16 at 08:45; Stop 09/25/16 at 14:44; Status DC Acetaminophen (Tylenol) 500 mg 1X PRN PRN PO MILD PAIN / TEMP; Start 09/25/16 at 08:45; Stop 09/26/16 at 08:44; Status DC Diphenhydramine HCl (Benadryl) 25 mg 1X PRN PRN IV ITCHING; Start 09/25/16 at 08 :45; Stop 09/26/16 at 08:44; Status DC Info (PHARMACY MONITORING -- do not chart) 1 each PRN DAILY PRN MC SEE COMMENTS ; Start 09/25/16 at 08:45; Status UNV Vancomycin HCl 1 each 1 each PRN DAILY PRN MC SEE COMMENTS Last administered on 09/28/16 08:22; Start 09/25/16 at 09:15 Piperacillin Sod/ Tazobactam Sod 2.25 gm/Sodium Chloride 50 ml @ 100 mls/hr Q6HRS IV Last administered on 09/28/16 05:53; Start 09/25/16 at 10:00 Vancomycin HCl/ Sodium Chloride (Iv Sodium Chloride 0.9% 500ml Bag) 500 ml @ 250 mls/hr ONCE ONCE IV Last administered on 09/25/16 13:32; Start 09/25/16 at 10:00; Stop 09/25/16 at 11:59; Status DC Warfarin Sodium (Coumadin) 4 mg 1X WARF ONCE PO ; Start 09/25/16 at 16:00; Stop 09/25/16 at 16:00; Status DC Warfarin Sodium 3 mg 3 mg 1X WARF ONCE PO Last administered on 09/25/16 16:00 ; Start 09/25/16 at 16:00; Stop 09/25/16 at 16:01; Status DC Magnesium Sulfate/ Dextrose (Magnesium Sulfate PREMIX 2GM) 50 ml @ 25 mls/hr PRN DAILY PRN IV for Mag < 1.7 on am labs; Start 09/26/16 at 11:15 Darbepoetin Ernst (Aranesp) 100 mcg Th SQ Last administered on 09/26/16 20:40; Start 09/26/16 at 21:00 Amlodipine Besylate (Norvasc) 2.5 mg DAILY PO Last administered on 09/26/16 12: 21; Start 09/26/16 at 11:00; Stop 09/26/16 at 14:02; Status DC Amlodipine Besylate (Norvasc) 5 mg DAILY PO Last administered on 09/28/16 09: 11; Start 09/27/16 at 09:00 Warfarin Sodium (Coumadin) 5 mg 1X WARF ONCE PO Last administered on 09/26/16 16:15; Start 09/26/16 at 16:00; Stop 09/26/16 at 16:01; Status DC Vancomycin HCl 1 each 1 each 1X ONCE MC ; Start 09/27/16 at 16:00; Stop at 16:01; Status DC Sodium Chloride 1,000 ml @ 1,000 mls/hr Q1H PRN IV hypotension; Start 09/27/16 at 09:47; Stop 09/27/16 at 15:46; Status DC Albumin Human (Albuminar) 200 ml @ 200 mls/hr 1X PRN PRN IV Hypotension; Start 09/27/16 at 10:00; Stop 09/27/16 at 15:59; Status DC Acetaminophen (Tylenol) 500 mg 1X PRN PRN PO MILD PAIN / TEMP; Start 09/27/16 at 10:00; Stop 09/28/16 at 09:59; Status DC Diphenhydramine HCl (Benadryl) 25 mg 1X PRN PRN IV ITCHING; Start 09/27/16 at 10:00; Stop 09/28/16 at 09:59; Status DC Diphenhydramine HCl (Benadryl) 25 mg 1X PRN PRN IV ITCHING; Start 09/27/16 at 10:00; Stop 09/28/16 at 09:59; Status DC Labetalol HCl 10 mg 10 mg PRN Q1HR PRN IVP SBP > 180; Start 09/27/16 at 10:00; Stop 09/28/16 at 09:59; Status DC Sodium Chloride (Iv Sodium Chloride 0.9% 1000ml Bag) 1,000 ml @ 400 mls/hr Q2H30M PRN IV PATENCY; Start 09/27/16 at 09:47; Stop 09/27/16 at 21:46; Status DC Info (PHARMACY MONITORING -- do not chart) 1 each PRN DAILY PRN MC SEE COMMENTS ; Start 09/27/16 at 10:00; Status UNV Warfarin Sodium 5 mg 5 mg 1X WARF ONCE PO Last administered on 09/27/16t 17:11 ; Start 09/27/16 at 16:00; Stop 09/27/16 at 16:01; Status DC Vancomycin HCl/ Sodium Chloride (Iv Sodium Chloride 0.9% 250ml) 250 ml @ 250 mls/hr ONCE ONCE IV Last administered on 09/27/16t 21:15; Start 09/27/16 at 20 :10; Stop 09/27/16 at 21:09; Status DC Potassium Chloride (Klor-Con) 40 meq 1X ONCE PO Last administered on t 12:04; Start 09/28/16 at 12:30; Stop 09/28/16 at 12:31; Status DC Active Scripts Active Reported [Mylanta] Tylenol (Acetaminophen) 325 Mg Tablet 1 Tab PO PRN Q4HRS Fleet Enema (Na Phos,M-B/Na Phos,Di-Ba) 133 Ml Enema 1 Each RC ONCE Dulcolax (Bisacodyl) 10 Mg Supp.rect 10 Mg RC PRN DAILY PRN Zofran Odt (Ondansetron) 8 Mg Tab.rapdis 1 Tab PO PRN Q8HRS PRN Nitrostat (Nitroglycerin) 0.4 Mg Tab.subl 1 Tab SL UD Cyclobenzaprine Hcl 10 Mg Tablet 1 Tab PO TID Zepatier 50-100 mg Tablet (Elbasvir/Grazoprevir) 1 Each Tablet 1 Each PO [PhosLo] Coreg (Carvedilol) 25 Mg Tablet 1 Tab PO BID Aspirin 81 Mg Tab.chew 1 Tab PO DAILY Allopurinol 100 Mg Tablet 1 Tab PO DAILY Ventolin Hfa Inhaler (Albuterol Sulfate) 18 Gm Hfa.aer.ad 2 Puff INH Q4HRS Nephplex Rx Tablet (Vit B Cmplx No3/Fa/C/Biot/Zinc) 1 Each Tablet 1 Each PO Senokot (Sennosides) 8.6 Mg Tablet 1 Tab PO BID Oxycontin (Oxycodone HCl) 10 Mg Tab.er.12h 10 Mg PO BID Glycolax (Polyethylene Glycol 3350) 119 Gm Powder 17 Gm PO UD Percocet 10-325 Mg Tablet (Oxycodone/Acetaminophen) 1 Each Tablet 1 Tab PO Q4- 6HRS Vitamin D3 (Cholecalciferol (Vitamin D3)) 1,000 Unit Tablet 1 Tab PO DAILY Advair 250-50 Diskus (Fluticasone/Salmeterol) 1 Each Disk.w.dev 1 Puff IH BID Ipratropium Ovando 0.2 Mg/1 Ml Solution 1 Vial NEB QID Lidoderm (Lidocaine) 700 Mg Adh..patch 1 Patch TP DAILY Nortriptyline Hcl 25 Mg Capsule 1 Cap PO QHS Ciprofloxacin Hcl 250 Mg Tablet 1 Tab PO BID Warfarin Sodium 2 Mg Tablet 1.5 Mg PO DAILY Gabapentin 300 Mg Capsule 300 Mg PO TID Zoloft (Sertraline Hcl) 100 Mg Tablet 1 Tab PO DAILY Vitals/I & O Vital Sign - Last 24 Hours 09/27/16 09/27/16 09/27/16 09/27/16 15:00 15:31 17:10 17:15 Temp 98.0 98.0 Pulse 81 81 Resp 16 B/P 169/71 169/71 Pulse Ox 98 98 O2 Delivery Room Air Room Air Room Air O2 Flow Rate 97.0 09/27/16 09/27/16 09/27/16 09/27/16 18:15 19:17 19:37 20:00 Temp 98.4 98.4 Pulse 77 Resp 18 B/P 125/67 Pulse Ox 98 97 95 O2 Delivery Room Air Room Air Room Air Room Air O2 Flow Rate 97.0 09/27/16 09/27/16 09/28/16 09/28/16 20:52 23:52 03:14 07:00 Temp 97.9 97.3 97.2 97.9 97.3 97.2 Pulse 86 79 83 Resp 18 18 18 20 B/P 132/78 166/88 178/89 Pulse Ox 96 100 96 O2 Delivery Room Air Room Air Room Air Room Air 09/28/16 09/28/16 09/28/16 09/28/16 09:10 09:11 09:12 11:00 Temp 97.6 97.6 Pulse 83 83 85 Resp 20 B/P 178/89 178/89 149/81 Pulse Ox 97 98 O2 Delivery Room Air Room Air 09/28/16 12:31 Pulse Ox 97 O2 Delivery Room Air Intake and Output 09/27/16 09/27/16 09/28/16 15:00 23:00 07:00 Intake Total 240 ml 360 ml 1350 ml Output Total 3 ml Balance 240 ml 357 ml 1350 ml CAROLANN PRUETT MD Sep 28, 2016 12:49
--- NOTE | 2016-09-28 14:21 | PDOC ---
PROGRESS NOTES Chief Complaint Chief Complaint 1. Acute blood loss anemia, GI bleed, s/p EGD 2. ESRD, on HD MWF 3. Coumadin coagulopathy, 4. Hypertension, comtrolled 5. Asthma, hx 6. Obesity 7. Back pain with possible discitis 8. A fib on coumadin 9. SNU resident 10. RCC vs renal complex cyst - NEW 11. Discsitis vs OM - back -NEW 12. right renal cysts 13. hypomagnesemia plan: 1. fu with specialist, id, renal, gi 2. bone bx pending, on vanco , zosyn now 3. cont HD 4. gi stable hope to dc to SNF next Friday when cx is back. on coumadin, INR daily uro consulted , no intervention for now, fu as outpt in 6ms increase amlodipine to 5mg daily discussed with ID, either stay here till next week for cx or dc to SNF for iv abx and see ID as outpt. but her SNF wont take her for iv abx wo clear dates. keep pt here over the weekend. History of Present Illness History of Present Illness Out having HD, no acute issues per RN S/p IR back procedure yesterday Incidenatl RCC vs complex renal mass - urology has not seen pt yet CT: IMPRESSION 1. Marked discogenic disease with loss of intervertebral disc material and fluid signal at L1-L2, L2-L3 and L3-L4. There is bony endplate edema at L1-2 suggesting possible discitis and osteomyelitis. Recommend correlation with sed rate and CBC. If there is clinical in decision MR with contrast may be helpful. 2. 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 There appears to be compression of the intra foraminal course of the exiting nerve roots on the left at L3-L4 and L4-5 and on the right at L3-L4. 3. Complex cyst versus mass seen anteriorly in the right kidney. This is not well evaluated but could be a renal cell carcinoma. 4. Presacral edema is nonspecific and is of uncertain etiology. Vitals Vitals Vital Signs Date Time Temp Pulse Resp B/P Pulse Ox O2 Delivery O2 Flow Rate FiO2 09/28/16 12:31 97 Room Air 09/28/16 11:00 97.6 85 20 149/81 97.6 09/27/16 18:15 97.0 Physical Exam General: Alert, Oriented X3, Cooperative, No acute distress Heart: Normal S1, Normal S2 Lungs: Clear Abdomen: Normal bowel sounds, Soft, No tenderness, No hepatosplenomegaly Extremities: No clubbing, No cyanosis, Other (back, no spinal tenderness. ) Skin: No rashes, No significant lesion, Other Labs LABS Laboratory Tests Test 09/27/16 16:58 09/27/16 20:54 09/28/16 06:45 09/28/16 07:25 Glucose (Fingerstick) 83mg/dL (70-99) 105mg/dL (70-99) 80mg/dL (70-99) Prothrombin Time 19.9SEC (11.7-14.0) Prothromb Time International Ratio 1.8 (0.8-1.1) Sodium Level 136mmol/L (136-145) Potassium Level 3.4mmol/L (3.5-5.1) Chloride Level 103mmol/L (98-107) Carbon Dioxide Level 31mmol/L (21-32) Anion Gap 2 (6-14) Blood Urea Nitrogen 10mg/dL (7-20) Creatinine 2.2mg/dL (0.6-1.0) Estimated GFR (Cockcroft-Gault) 27.5 Glucose Level 99mg/dL (70-99) Calcium Level 7.9mg/dL (8.5-10.1) Phosphorus Level 2.3mg/dL (2.6-4.7) Magnesium Level 1.4mg/dL (1.8-2.4) Albumin 1.6g/dL (3.4-5.0) Test 09/28/16 10:31 Glucose (Fingerstick) 122mg/dL (70-99) Review of Systems Review of Systems no fever, chills, sob or chest pain Assessment and Plan Assessmemt and Plan Problems Medical Problems: (1) Anemia Status: Acute (2) Coagulopathy Status: Acute (3) Coumadin toxicity Status: Acute (4) Elevated INR (international normalized ratio) due to prior anticoagulant medication ingestion Status: Acute (5) ESRD on dialysis Status: Acute (6) GI bleed Status: Acute Problems: Comment Review of Relevant I have reviewed the following items christi (where applicable) has been applied. Labs Laboratory Tests Test 09/26/16 16:37 09/26/16 20:35 09/27/16 05:00 09/27/16 07:16 Glucose (Fingerstick) 116mg/dL (70-99) 118mg/dL (70-99) 112mg/dL (70-99) White Blood Count 6.8x10^3/uL (4.0-11.0) Red Blood Count 2.67x10^6/uL (3.50-5.40) Hemoglobin 7.3g/dL (12.0-15.5) Hematocrit 23.0% (36.0-47.0) Mean Corpuscular Volume 86fL (79-100) Mean Corpuscular Hemoglobin 27pg (25-35) Mean Corpuscular Hemoglobin Concent 32g/dL (31-37) Red Cell Distribution Width 17.4% (11.5-14.5) Platelet Count 227x10^3/uL (140-400) Neutrophils (%) (Auto) 63% (31-73) Lymphocytes (%) (Auto) 24% (24-48) Monocytes (%) (Auto) 11% (0-9) Eosinophils (%) (Auto) 2% (0-3) Basophils (%) (Auto) 1% (0-3) Neutrophils # (Auto) 4.3x10^3uL (1.8-7.7) Lymphocytes # (Auto) 1.6x10^3/uL (1.0-4.8) Monocytes # (Auto) 0.7x10^3/uL (0.0-1.1) Eosinophils # (Auto) 0.1x10^3/uL (0.0-0.7) Basophils # (Auto) 0.0x10^3/uL (0.0-0.2) Prothrombin Time 18.1SEC (11.7-14.0) Prothromb Time International Ratio 1.6 (0.8-1.1) Sodium Level 139mmol/L (136-145) Potassium Level 3.6mmol/L (3.5-5.1) Chloride Level 101mmol/L (98-107) Carbon Dioxide Level 28mmol/L (21-32) Anion Gap 10 (6-14) Blood Urea Nitrogen 21mg/dL (7-20) Creatinine 3.1mg/dL (0.6-1.0) Estimated GFR (Cockcroft-Gault) 18.5 Glucose Level 99mg/dL (70-99) Calcium Level 7.8mg/dL (8.5-10.1) Phosphorus Level 2.8mg/dL (2.6-4.7) Magnesium Level 1.8mg/dL (1.8-2.4) Albumin 1.7g/dL (3.4-5.0) Random Vancomycin Level 19.3mcg/mL Test 09/27/16 16:58 09/27/16 20:54 09/28/16 06:45 09/28/16 07:25 Glucose (Fingerstick) 83mg/dL (70-99) 105mg/dL (70-99) 80mg/dL (70-99) Prothrombin Time 19.9SEC (11.7-14.0) Prothromb Time International Ratio 1.8 (0.8-1.1) Sodium Level 136mmol/L (136-145) Potassium Level 3.4mmol/L (3.5-5.1) Chloride Level 103mmol/L (98-107) Carbon Dioxide Level 31mmol/L (21-32) Anion Gap 2 (6-14) Blood Urea Nitrogen 10mg/dL (7-20) Creatinine 2.2mg/dL (0.6-1.0) Estimated GFR (Cockcroft-Gault) 27.5 Glucose Level 99mg/dL (70-99) Calcium Level 7.9mg/dL (8.5-10.1) Phosphorus Level 2.3mg/dL (2.6-4.7) Magnesium Level 1.4mg/dL (1.8-2.4) Albumin 1.6g/dL (3.4-5.0) Test 09/28/16 10:31 Glucose (Fingerstick) 122mg/dL (70-99) Laboratory Tests Test 09/27/16 16:58 09/27/16 20:54 09/28/16 06:45 09/28/16 07:25 Glucose (Fingerstick) 83mg/dL (70-99) 105mg/dL (70-99) 80mg/dL (70-99) Prothrombin Time 19.9SEC (11.7-14.0) Prothromb Time International Ratio 1.8 (0.8-1.1) Sodium Level 136mmol/L (136-145) Potassium Level 3.4mmol/L (3.5-5.1) Chloride Level 103mmol/L (98-107) Carbon Dioxide Level 31mmol/L (21-32) Anion Gap 2 (6-14) Blood Urea Nitrogen 10mg/dL (7-20) Creatinine 2.2mg/dL (0.6-1.0) Estimated GFR (Cockcroft-Gault) 27.5 Glucose Level 99mg/dL (70-99) Calcium Level 7.9mg/dL (8.5-10.1) Phosphorus Level 2.3mg/dL (2.6-4.7) Magnesium Level 1.4mg/dL (1.8-2.4) Albumin 1.6g/dL (3.4-5.0) Test 09/28/16 10:31 Glucose (Fingerstick) 122mg/dL (70-99) Microbiology 09/24/16 Blood Culture - Preliminary, Resulted NO GROWTH AFTER 4 DAYS 09/24/16 Anaerobic/Aerobic Culture - Preliminary, Resulted 09/24/16 Anaerobic Culture Result 1 (CONNOR) - Preliminary, Resulted 09/24/16 Aerobic Culture - Final, Resulted 09/24/16 Aerobic Culture Result 1 (CONNOR) - Final, Resulted Medications Current Medications Oxycodone/ Acetaminophen (Percocet 5/325) 1 tab 1X ONCE PO ; Start 09/09/16 at 19:00; Stop 09/09/16 at 19:01; Status DC Hydromorphone HCl 1 mg 1 mg 1X ONCE IV Last administered on 09/09/16 19:21; Start 09/09/16 at 19:15; Stop 09/09/16 at 19:16; Status DC Pantoprazole Sodium/Sodium Chloride (Protonix Iv/Iv Sodium Chloride 0.9% 100ml) 100 ml @ 10 mls/hr 1X ONCE IV Last administered on 09/09/16 19:51; Start at 19:30; Stop 09/10/16 at 05:29; Status DC Ondansetron HCl 4 mg 4 mg PRN Q8HRS PRN IV NAUSEA/VOMITING Last administered on 09/09/16 19:51; Start 09/09/16 at 19:30; Stop 09/10/16 at 19:29; Status DC Sodium Chloride (Iv Sodium Chloride 0.9% 1000ml Bag) 1,000 ml @ 100 mls/hr Q10H IV Last administered on 09/09/16 19:51; Start 09/09/16 at 19:30; Stop at 06:00; Status DC Acetaminophen (Tylenol) 650 mg PRN Q4HRS PRN PO FEVER Last administered on 09/09 19:52; Start 09/09/16 at 19:30; Stop 09/10/16 at 19:29; Status DC Multi-Ingredient Mouthwash/Gargle 15 ml 15 ml 1X ONCE SWSW Last administered on 09/09/16 23:41; Start 09/09/16 at 23:30; Stop 09/09/16 at 23:31; Status DC Phytonadione/ Sodium Chloride (Vitamin K/Iv Sodium Chloride 0.9% 50ml) 51 ml @ 102 mls/hr 1X ONCE IV Last administered on 09/10/16 02:07; Start 09/10/16 at 00:00; Stop 09/10/16 at 00:29; Status DC Acetaminophen (Tylenol) 325 mg PRN Q4HRS PO ; Start 09/09/16 at 23:30; Stop at 23:30; Status DC Allopurinol (Zyloprim) 100 mg DAILY PO Last administered on 09/28/16 09:11; Start 09/10/16 at 09:00 Bisacodyl (Dulcolax Supp) 10 mg PRN DAILY PRN RC CONSTIPATION; Start 09/09/16 at 23:30 Cyclobenzaprine HCl (Flexeril) 10 mg PRN TID PRN PO back pain Last administered on 09/21/16 15:14; Start 09/09/16 at 23:30 Gabapentin (Neurontin) 300 mg DAILY PO Last administered on 09/28/16 09:10; Start 09/10/16 at 09:00 Ipratropium [place] (Atrovent) 0.2 mg QID NEB ; Start 09/10/16 at 09:00; Status UNV Lidocaine (Lidoderm) 1 patch DAILY TP Last administered on 09/28/16 09:13; Start 09/10/16 at 09:00 Nortriptyline HCl (Pamelor) 25 mg QHS PO Last administered on 09/27/16 20:52; Start 09/10/16 at 21:00 Oxycodone HCl (Oxycontin) 10 mg BID PO Last administered on 09/28/16 09:11; Start 09/10/16 at 09:00 Oxycodone/ Acetaminophen (Percocet 10/325) 1 tab PRN Q4HRS PRN PO SEVERE PAIN Last administered on 09/28/16 13:27; Start 09/09/16 at 23:30 Non-Formulary Medication 2 puff Q4HRS INH FOR ASTHMA; Start 09/10/16 at 00:00; Status UNV Carvedilol (Coreg) 25 mg BIDWMEALS PO Last administered on 09/28/16 09:12; Start 09/10/16 at 08:00 Non-Formulary Medication 1 puff BID IH ; Start 09/10/16 at 09:00; Status UNV Ondansetron HCl (Zofran Odt) 8 mg Q8HRS PO Last administered on 09/27/16 05:06 ; Start 09/10/16 at 06:00 Sertraline HCl (Zoloft) 100 mg DAILY PO Last administered on 09/28/16 09:10; Start 09/10/16 at 09:00 Labetalol HCl (Normodyne) 20 mg PRN Q2HR PRN IVP HYPERTENSION, SEE COMMENTS Last administered on 09/25/16 05:47; Start 09/09/16 at 23:30 Albuterol/ Ipratropium (Duoneb) 3 ml RTQID NEB Last administered on 09/28/16 12:30; Start 09/10/16 at 08:00 Budesonide (Pulmicort) 0.5 mg RTBID NEB Last administered on 09/28/16 09:06; Start 09/10/16 at 08:00 Albuterol Sulfate 2.5 mg 2.5 mg PRN Q4HRS PRN NEB SHORTNESS OF BREATH; Start at 23:30 Pantoprazole Sodium 80 mg/ Sodium Chloride 100 ml @ 10 mls/hr Q10H IV Last administered on 09/13/16 07:51; Start 09/10/16 at 10:00; Stop 09/13/16 at 09:59 ; Status DC Magnesium Sulfate/ Dextrose 50 ml @ 25 mls/hr PRN DAILY PRN IV for Mag < 1.7 on am labs; Start 09/10/16 at 10:00; Stop 09/22/16 at 11:36; Status DC Sodium Chloride (Iv Sodium Chloride 0.9% 1000ml Bag) 1,000 ml @ 1,000 mls/hr Q1H PRN IV hypotension; Start 09/11/16 at 08:50; Stop 09/11/16 at 14:49; Status DC Diphenhydramine HCl (Benadryl) 25 mg 1X PRN PRN IV ITCHING; Start 09/11/16 at 09:00; Stop 09/12/16 at 08:59; Status DC Diphenhydramine HCl (Benadryl) 25 mg 1X PRN PRN IV ITCHING; Start 09/11/16 at 09:00; Stop 09/12/16 at 08:59; Status DC Sodium Chloride (Normal Saline Flush) 10 ml 1X PRN PRN IV AP catheter pack; Start 09/11/16 at 09:00; Stop 09/12/16 at 08:59; Status DC Sodium Chloride (Normal Saline Flush) 10 ml 1X PRN PRN IV PHOTOGRAPH PRINTER catheter pack; Start 09/11/16 at 09:00; Stop 09/12/16 at 08:59; Status DC Labetalol HCl 10 mg 10 mg PRN Q1HR PRN IVP SBP > 180; Start 09/11/16 at 09:00; Stop 09/12/16 at 08:59; Status DC Sodium Chloride (Iv Sodium Chloride 0.9% 1000ml Bag) 1,000 ml @ 400 mls/hr Q2H30M PRN IV PATENCY; Start 09/11/16 at 08:50; Stop 09/11/16 at 20:49; Status DC Info (PHARMACY MONITORING -- do not chart) 1 each PRN DAILY PRN MC SEE COMMENTS ; Start 09/11/16 at 09:00 Info (PHARMACY MONITORING -- do not chart) 1 each PRN DAILY PRN MC SEE COMMENTS ; Start 09/11/16 at 09:00; Status UNV Sodium Cl/Sod Bicarb/Potass Cl/ PEG (Golytely) 4,000 ml 1X ONCE PO Last administered on 09/11/16 17:13; Start 09/11/16 at 13:00; Stop 09/11/16 at 13:01 ; Status DC Fentanyl Citrate (Fentanyl 2ml Vial) 25 mcg PRN Q5MIN PRN IV MILD PAIN; Start 09/12/16 at 07:00; Stop 09/13/16 at 06:59; Status DC Fentanyl Citrate 50 mcg 50 mcg PRN Q5MIN PRN IV MODERATE PAIN; Start 09/12/16 at 07:00; Stop 09/13/16 at 06:59; Status DC Lactated Ringer's (Iv Lactated Ringers) 1,000 ml @ 0 mls/hr Q0M IV ; Start at 07:00; Stop 09/12/16 at 18:59; Status DC Lidocaine HCl 2 ml 1X PRN PRN ID IV START; Start 09/12/16 at 07:00; Stop at 06:59; Status DC Prochlorperazine Edisylate (Compazine) 5 mg PACU PRN PRN IV NAUSEA; Start 09/12 at 07:00; Stop 09/13/16 at 06:59; Status DC Pantoprazole Sodium 40 mg 40 mg DAILYAC IVP ; Start 09/13/16 at 07:30; Status UNV Magnesium Sulfate/ Dextrose 50 ml @ 25 mls/hr 1X ONCE IV ; Start 09/12/16 at 11 :30; Stop 09/12/16 at 13:29; Status DC Propofol 0 ml @ As Directed STK-MED ONCE IV ; Start 09/12/16 at 12:55; Stop at 12:56; Status DC Propofol (Diprivan) 20 ml @ As Directed STK-MED ONCE IV ; Start 09/12/16 at 12: 55; Stop 09/12/16 at 12:56; Status Cancel Lidocaine HCl (Lidocaine Pf 2% Vial) 5 ml STK-MED ONCE .ROUTE ; Start 09/12/16 at 12:55; Stop 09/12/16 at 12:56; Status DC Lorazepam (Ativan) 2 mg PRN Q4HRS PRN IV ANXIETY / AGITATION Last administered on 09/26/16 03:00; Start 09/12/16 at 14:15 Lorazepam (Ativan) 2 mg Q4HRS PRN IV ANXIETY / AGITATION; Start 09/12/16 at 14: 15; Status UNV Haloperidol Lactate (Haldol) 2.5 mg PRN Q6HRS PRN IM AGITATION; Start 09/12/16 at 14:15; Stop 09/26/16 at 14:02; Status DC Haloperidol Lactate (Haldol) 2.5 mg PRN Q6HRS PRN IVP AGITATION; Start at 14:15; Stop 09/26/16 at 14:02; Status DC Lorazepam 2 mg 2 mg PRN Q4HRS PRN IM ANXIETY / AGITATION; Start 09/12/16 at 14: 30; Stop 09/17/16 at 14:37; Status DC Sodium Chloride (Iv Sodium Chloride 0.9% 1000ml Bag) 1,000 ml @ 1,000 mls/hr Q1H PRN IV hypotension; Start 09/13/16 at 08:39; Stop 09/13/16 at 14:38; Status DC Diphenhydramine HCl (Benadryl) 25 mg 1X PRN PRN IV ITCHING; Start 09/13/16 at 08:45; Stop 09/14/16 at 08:44; Status DC Diphenhydramine HCl (Benadryl) 25 mg 1X PRN PRN IV ITCHING; Start 09/13/16 at 08:45; Stop 09/14/16 at 08:44; Status DC Sodium Chloride (Normal Saline Flush) 10 ml 1X PRN PRN IV AP catheter pack; Start 09/13/16 at 08:45; Stop 09/14/16 at 08:44; Status DC Sodium Chloride (Normal Saline Flush) 10 ml 1X PRN PRN IV PHOTOGRAPH PRINTER catheter pack; Start 09/13/16 at 08:45; Stop 09/14/16 at 08:44; Status DC Labetalol HCl (Normodyne) 10 mg PRN Q1HR PRN IVP SBP > 180; Start 09/13/16 at 08:45; Stop 09/14/16 at 08:44; Status DC Info (PHARMACY MONITORING -- do not chart) 1 each PRN DAILY PRN MC SEE COMMENTS ; Start 09/13/16 at 08:45; Status UNV Info (PHARMACY MONITORING -- do not chart) 1 each PRN DAILY PRN MC SEE COMMENTS ; Start 09/13/16 at 08:45; Status UNV Pantoprazole Sodium 40 mg 40 mg DAILYAC IVP Last administered on 09/16/16 05: 57; Start 09/13/16 at 13:00; Stop 09/17/16 at 10:02; Status DC Sodium Chloride (Iv Sodium Chloride 0.9% 1000ml Bag) 1,000 ml @ 1,000 mls/hr Q1H PRN IV hypotension; Start 09/16/16 at 08:46; Stop 09/16/16 at 14:45; Status DC Diphenhydramine HCl (Benadryl) 25 mg 1X PRN PRN IV ITCHING; Start 09/16/16 at 09:00; Stop 09/17/16 at 08:59; Status DC Diphenhydramine HCl (Benadryl) 25 mg 1X PRN PRN IV ITCHING; Start 09/16/16 at 09:00; Stop 09/17/16 at 08:59; Status DC Sodium Chloride (Normal Saline Flush) 10 ml 1X PRN PRN IV AP catheter pack; Start 09/16/16 at 09:00; Stop 09/17/16 at 08:59; Status DC Sodium Chloride (Normal Saline Flush) 10 ml 1X PRN PRN IV PHOTOGRAPH PRINTER catheter pack; Start 09/16/16 at 09:00; Stop 09/17/16 at 08:59; Status DC Info (PHARMACY MONITORING -- do not chart) 1 each PRN DAILY PRN MC SEE COMMENTS ; Start 09/16/16 at 09:00; Status UNV Info (PHARMACY MONITORING -- do not chart) 1 each PRN DAILY PRN MC SEE COMMENTS ; Start 09/16/16 at 09:00; Status UNV Darbepoetin Ernst (Aranesp) 60 mcg [id number] SQ Last administered on 09/23/16 20: 43; Start 09/16/16 at 21:00; Stop 09/26/16 at 11:05; Status DC Pantoprazole Sodium (Protonix) 40 mg DAILYAC PO Last administered on 09/28/16 09:12; Start 09/17/16 at 10:02 Fentanyl Citrate (Fentanyl 2ml Vial) 25 mcg PRN Q5MIN PRN IV MILD PAIN; Start 09/18/16 at 07:00; Stop 09/19/16 at 06:59; Status DC Fentanyl Citrate 50 mcg 50 mcg PRN Q5MIN PRN IV MODERATE PAIN; Start 09/18/16 at 07:00; Stop 09/19/16 at 06:59; Status DC Lactated Ringer's (Iv Lactated Ringers) 1,000 ml @ 0 mls/hr Q0M IV ; Start 09/18 at 07:00; Stop 09/18/16 at 18:59; Status DC Lidocaine HCl 2 ml 1X PRN PRN ID IV START; Start 09/18/16 at 07:00; Stop at 06:59; Status DC Prochlorperazine Edisylate (Compazine) 5 mg PACU PRN PRN IV NAUSEA; Start at 07:00; Stop 09/19/16 at 06:59; Status DC Dextrose 25 gm 25 gm STK-MED ONCE IV Last administered on 09/18/16 08:19; Start 09/18/16 at 08:19; Stop 09/18/16 at 08:20; Status DC Propofol (Diprivan) 20 ml @ As Directed STK-MED ONCE IV ; Start 09/18/16 at 11:13 ; Stop 09/18/16 at 11:14; Status DC Lidocaine HCl 5 ml 5 ml STK-MED ONCE .ROUTE ; Start 09/18/16 at 11:13; Stop at 11:14; Status DC Sodium Chloride 1,000 ml @ 100 mls/hr 1X ONCE IV Last administered on 11:29; Start 09/18/16 at 11:30; Stop 09/18/16 at 21:29; Status DC Sodium Chloride (Iv Sodium Chloride 0.9% 1000ml Bag) 1,000 ml @ 1,000 mls/hr Q1H PRN IV hypotension; Start 09/18/16 at 13:47; Stop 09/18/16 at 19:46; Status DC Acetaminophen (Tylenol) 500 mg 1X PRN PRN PO MILD PAIN / TEMP; Start 09/18/16 at 14:00; Stop 09/19/16 at 13:59; Status DC Diphenhydramine HCl (Benadryl) 25 mg 1X PRN PRN IV ITCHING; Start 09/18/16 at 14 :00; Stop 09/19/16 at 13:59; Status DC Diphenhydramine HCl (Benadryl) 25 mg 1X PRN PRN IV ITCHING; Start 09/18/16 at 14 :00; Stop 09/19/16 at 13:59; Status DC Labetalol HCl 10 mg 10 mg PRN Q1HR PRN IVP SBP > 180; Start 09/18/16 at 14:00; Stop 09/19/16 at 13:59; Status DC Sodium Chloride (Iv Sodium Chloride 0.9% 1000ml Bag) 1,000 ml @ 400 mls/hr Q2H30M PRN IV PATENCY; Start 09/18/16 at 13:47; Stop 09/19/16 at 01:46; Status DC Info 1 each 1 each PRN DAILY PRN MC SEE COMMENTS; Start 09/18/16 at 14:00; Status UNV Sodium Chloride 1,000 ml @ 1,000 mls/hr Q1H PRN IV hypotension; Start 09/20/16 at 07:30; Stop 09/20/16 at 18:00; Status DC Albumin Human (Albuminar) 200 ml @ 200 mls/hr 1X PRN PRN IV Hypotension; Start 09/20/16 at 07:45; Stop 09/20/16 at 14:00; Status DC Acetaminophen (Tylenol) 500 mg 1X PRN PRN PO MILD PAIN / TEMP; Start 09/20/16 at 07:45; Stop 09/20/16 at 18:00; Status DC Diphenhydramine HCl (Benadryl) 25 mg 1X PRN PRN IV ITCHING; Start 09/20/16 at 07 :45; Stop 09/20/16 at 18:00; Status DC Diphenhydramine HCl (Benadryl) 25 mg 1X PRN PRN IV ITCHING; Start 09/20/16 at 07 :45; Stop 09/20/16 at 18:00; Status DC Sodium Chloride (Normal Saline Flush) 10 ml 1X PRN PRN IV AP catheter pack; Start 09/20/16 at 07:45; Stop 09/20/16 at 18:00; Status DC Sodium Chloride (Normal Saline Flush) 10 ml 1X PRN PRN IV PHOTOGRAPH PRINTER catheter pack; Start 09/20/16 at 07:45; Stop 09/20/16 at 18:00; Status DC Labetalol HCl 10 mg 10 mg PRN Q1HR PRN IVP SBP > 180; Start 09/20/16 at 07:45; Stop 09/20/16 at 18:00; Status DC Sodium Chloride (Iv Sodium Chloride 0.9% 1000ml Bag) 1,000 ml @ 400 mls/hr Q2H30M PRN IV PATENCY; Start 09/20/16 at 07:45; Stop 09/20/16 at 18:00; Status DC Info (PHARMACY MONITORING -- do not chart) 1 each PRN DAILY PRN MC SEE COMMENTS ; Start 09/20/16 at 07:45; Status UNV Warfarin Sodium (Coumadin Per Pharmacy) 1 each PRN DAILY PRN MC SEE COMMENTS Last administered on 09/27/16 14:36; Start 09/20/16 at 14:30 Warfarin Sodium (Coumadin) 2 mg 1X WARF ONCE PO Last administered on 09/20/16 17:27; Start 09/20/16 at 17:14; Stop 09/20/16 at 17:15; Status DC Methylprednisolone Acetate (Depo-Medrol 80mg Vial) 80 mg 1X ONCE IM ; Start 09/20/16 at 17:30; Stop 09/20/16 at 17:33; Status DC Methylprednisolone Acetate (Depo-Medrol 40mg Vial) 40 mg 1X ONCE IM ; Start 09/20/16 at 17:30; Stop 09/20/16 at 17:33; Status DC Bupivacaine HCl (Sensorcaine-Mpf 0.25%) 10 ml 1X ONCE IJ ; Start 09/20/16 at 17: 30; Stop 09/20/16 at 17:33; Status DC Warfarin Sodium (Coumadin) 2 mg 1X WARF ONCE PO Last administered on 09/21/16 17:14; Start 09/21/16 at 16:00; Stop 09/21/16 at 16:01; Status DC Warfarin Sodium 3 mg 3 mg 1X WARF ONCE PO Last administered on 09/22/16 17:28 ; Start 09/22/16 at 16:00; Stop 09/22/16 at 16:01; Status DC Sodium Chloride (Iv Sodium Chloride 0.9% 1000ml Bag) 1,000 ml @ 1,000 mls/hr Q1H PRN IV hypotension; Start 09/23/16 at 14:18; Stop 09/23/16 at 21:00; Status DC Sodium Chloride (Normal Saline Flush) 10 ml 1X PRN PRN IV AP catheter pack; Start 09/23/16 at 14:30; Stop 09/23/16 at 21:00; Status DC Sodium Chloride (Normal Saline Flush) 10 ml 1X PRN PRN IV PHOTOGRAPH PRINTER catheter pack; Start 09/23/16 at 14:30; Stop 09/23/16 at 21:00; Status DC Info (PHARMACY MONITORING -- do not chart) 1 each PRN DAILY PRN MC SEE COMMENTS ; Start 09/23/16 at 14:30; Status UNV Info (PHARMACY MONITORING -- do not chart) 1 each PRN DAILY PRN MC SEE COMMENTS ; Start 09/23/16 at 14:30; Status UNV Warfarin Sodium (Coumadin) 3 mg 1X ONCE PO Last administered on 09/23/16 17:34 ; Start 09/23/16 at 17:00; Stop 09/23/16 at 17:01; Status DC Lidocaine/Sodium Bicarbonate (Buffered Lidocaine 1%) 20 ml STK-MED ONCE IJ ; Start 09/24/16 at 14:59; Stop 09/24/16 at 15:00; Status DC Fentanyl Citrate (Fentanyl 2ml Vial) 100 mcg STK-MED ONCE .ROUTE ; Start at 15:05; Stop 09/24/16 at 15:06; Status DC Midazolam HCl (Versed) 2 mg STK-MED ONCE .ROUTE ; Start 09/24/16 at 15:05; Stop 09/24/16 at 15:06; Status DC Lidocaine/Sodium Bicarbonate (Buffered Lidocaine 1%) 20 ml 1X ONCE IJ Last administered on 09/24/16 16:13; Start 09/24/16 at 16:15; Stop 09/24/16 at 16:16; Status DC Midazolam HCl (Versed) 2 mg 1X ONCE IV Last administered on 09/24/16 16:14; Start 09/24/16 at 16:15; Stop 09/24/16 at 16:16; Status DC Fentanyl Citrate (Fentanyl 2ml Vial) 100 mcg 1X ONCE IV Last administered on 16:15; Start 09/24/16 at 16:15; Stop 09/24/16 at 16:16; Status DC Warfarin Sodium 2 mg 2 mg 1X ONCE PO Last administered on 09/24/16 16:35; Start 09/24/16 at 17:00; Stop 09/24/16 at 17:01; Status DC Sodium Chloride 1,000 ml @ 1,000 mls/hr Q1H PRN IV hypotension; Start 09/25/16 at 08:38; Stop 09/25/16 at 14:37; Status DC Albumin Human (Albuminar) 200 ml @ 200 mls/hr 1X PRN PRN IV Hypotension; Start 09/25/16 at 08:45; Stop 09/25/16 at 14:44; Status DC Acetaminophen (Tylenol) 500 mg 1X PRN PRN PO MILD PAIN / TEMP; Start 09/25/16 at 08:45; Stop 09/26/16 at 08:44; Status DC Diphenhydramine HCl (Benadryl) 25 mg 1X PRN PRN IV ITCHING; Start 09/25/16 at 08 :45; Stop 09/26/16 at 08:44; Status DC Info (PHARMACY MONITORING -- do not chart) 1 each PRN DAILY PRN MC SEE COMMENTS ; Start 09/25/16 at 08:45; Status UNV Vancomycin HCl 1 each 1 each PRN DAILY PRN MC SEE COMMENTS Last administered on 09/28/16 08:22; Start 09/25/16 at 09:15 Piperacillin Sod/ Tazobactam Sod 2.25 gm/Sodium Chloride 50 ml @ 100 mls/hr Q6HRS IV Last administered on 09/28/16 05:53; Start 09/25/16 at 10:00 Vancomycin HCl/ Sodium Chloride (Iv Sodium Chloride 0.9% 500ml Bag) 500 ml @ 250 mls/hr ONCE ONCE IV Last administered on 09/25/16 13:32; Start 09/25/16 at 10:00; Stop 09/25/16 at 11:59; Status DC Warfarin Sodium (Coumadin) 4 mg 1X WARF ONCE PO ; Start 09/25/16 at 16:00; Stop 09/25/16 at 16:00; Status DC Warfarin Sodium 3 mg 3 mg 1X WARF ONCE PO Last administered on 09/25/16 16:00 ; Start 09/25/16 at 16:00; Stop 09/25/16 at 16:01; Status DC Magnesium Sulfate/ Dextrose (Magnesium Sulfate PREMIX 2GM) 50 ml @ 25 mls/hr PRN DAILY PRN IV for Mag < 1.7 on am labs; Start 09/26/16 at 11:15 Darbepoetin Ernst (Aranesp) 100 mcg Th SQ Last administered on 09/26/16 20:40; Start 09/26/16 at 21:00 Amlodipine Besylate (Norvasc) 2.5 mg DAILY PO Last administered on 09/26/16 12: 21; Start 09/26/16 at 11:00; Stop 09/26/16 at 14:02; Status DC Amlodipine Besylate (Norvasc) 5 mg DAILY PO Last administered on 09/28/16 09: 11; Start 09/27/16 at 09:00 Warfarin Sodium (Coumadin) 5 mg 1X WARF ONCE PO Last administered on 09/26/16 16:15; Start 09/26/16 at 16:00; Stop 09/26/16 at 16:01; Status DC Vancomycin HCl 1 each 1 each 1X ONCE MC ; Start 09/27/16 at 16:00; Stop at 16:01; Status DC Sodium Chloride 1,000 ml @ 1,000 mls/hr Q1H PRN IV hypotension; Start 09/27/16 at 09:47; Stop 09/27/16 at 15:46; Status DC Albumin Human (Albuminar) 200 ml @ 200 mls/hr 1X PRN PRN IV Hypotension; Start 09/27/16 at 10:00; Stop 09/27/16 at 15:59; Status DC Acetaminophen (Tylenol) 500 mg 1X PRN PRN PO MILD PAIN / TEMP; Start 09/27/16 at 10:00; Stop 09/28/16 at 09:59; Status DC Diphenhydramine HCl (Benadryl) 25 mg 1X PRN PRN IV ITCHING; Start 09/27/16 at 10:00; Stop 09/28/16 at 09:59; Status DC Diphenhydramine HCl (Benadryl) 25 mg 1X PRN PRN IV ITCHING; Start 09/27/16 at 10:00; Stop 09/28/16 at 09:59; Status DC Labetalol HCl 10 mg 10 mg PRN Q1HR PRN IVP SBP > 180; Start 09/27/16 at 10:00; Stop 09/28/16 at 09:59; Status DC Sodium Chloride (Iv Sodium Chloride 0.9% 1000ml Bag) 1,000 ml @ 400 mls/hr Q2H30M PRN IV PATENCY; Start 09/27/16 at 09:47; Stop 09/27/16 at 21:46; Status DC Info (PHARMACY MONITORING -- do not chart) 1 each PRN DAILY PRN MC SEE COMMENTS ; Start 09/27/16 at 10:00; Status UNV Warfarin Sodium 5 mg 5 mg 1X WARF ONCE PO Last administered on 09/27/16 17:11 ; Start 09/27/16 at 16:00; Stop 09/27/16 at 16:01; Status DC Vancomycin HCl/ Sodium Chloride (Iv Sodium Chloride 0.9% 250ml) 250 ml @ 250 mls/hr ONCE ONCE IV Last administered on 09/27/16 21:15; Start 09/27/16 at 20 :10; Stop 09/27/16 at 21:09; Status DC Potassium Chloride (Klor-Con) 40 meq 1X ONCE PO Last administered on 12:04; Start 09/28/16 at 12:30; Stop 09/28/16 at 12:31; Status DC Active Scripts Active Reported [Mylanta] Tylenol (Acetaminophen) 325 Mg Tablet 1 Tab PO PRN Q4HRS Fleet Enema (Na Phos,M-B/Na Phos,Di-Ba) 133 Ml Enema 1 Each RC ONCE Dulcolax (Bisacodyl) 10 Mg Supp.rect 10 Mg RC PRN DAILY PRN Zofran Odt (Ondansetron) 8 Mg Tab.rapdis 1 Tab PO PRN Q8HRS PRN Nitrostat (Nitroglycerin) 0.4 Mg Tab.subl 1 Tab SL UD Cyclobenzaprine Hcl 10 Mg Tablet 1 Tab PO TID Zepatier 50-100 mg Tablet (Elbasvir/Grazoprevir) 1 Each Tablet 1 Each PO [PhosLo] Coreg (Carvedilol) 25 Mg Tablet 1 Tab PO BID Aspirin 81 Mg Tab.chew 1 Tab PO DAILY Allopurinol 100 Mg Tablet 1 Tab PO DAILY Ventolin Hfa Inhaler (Albuterol Sulfate) 18 Gm Hfa.aer.ad 2 Puff INH Q4HRS Nephplex Rx Tablet (Vit B Cmplx No3/Fa/C/Biot/Zinc) 1 Each Tablet 1 Each PO Senokot (Sennosides) 8.6 Mg Tablet 1 Tab PO BID Oxycontin (Oxycodone HCl) 10 Mg Tab.er.12h 10 Mg PO BID Glycolax (Polyethylene Glycol 3350) 119 Gm Powder 17 Gm PO UD Percocet 10-325 Mg Tablet (Oxycodone/Acetaminophen) 1 Each Tablet 1 Tab PO Q4- 6HRS Vitamin D3 (Cholecalciferol (Vitamin D3)) 1,000 Unit Tablet 1 Tab PO DAILY Advair 250-50 Diskus (Fluticasone/Salmeterol) 1 Each Disk.w.dev 1 Puff IH BID Ipratropium [place] 0.2 Mg/1 Ml Solution 1 Vial NEB QID Lidoderm (Lidocaine) 700 Mg Adh..patch 1 Patch TP DAILY Nortriptyline Hcl 25 Mg Capsule 1 Cap PO QHS Ciprofloxacin Hcl 250 Mg Tablet 1 Tab PO BID Warfarin Sodium 2 Mg Tablet 1.5 Mg PO DAILY Gabapentin 300 Mg Capsule 300 Mg PO TID Zoloft (Sertraline Hcl) 100 Mg Tablet 1 Tab PO DAILY Vitals/I & O Vital Sign - Last 24 Hours 09/27/16 09/27/16 09/27/16 09/27/16 15:00 15:31 17:10 17:15 Temp 98.0 98.0 Pulse 81 81 Resp 16 B/P 169/71 169/71 Pulse Ox 98 98 O2 Delivery Room Air Room Air Room Air O2 Flow Rate 97.0 09/27/16 09/27/16 09/27/16 09/27/16 18:15 19:17 19:37 20:00 Temp 98.4 98.4 Pulse 77 Resp 18 B/P 125/67 Pulse Ox 98 97 95 O2 Delivery Room Air Room Air Room Air Room Air O2 Flow Rate 97.0 09/27/16 09/27/16 09/28/16 09/28/16 20:52 23:52 03:14 07:00 Temp 97.9 97.3 97.2 97.9 97.3 97.2 Pulse 86 79 83 Resp 18 18 18 20 B/P 132/78 166/88 178/89 Pulse Ox 96 100 96 O2 Delivery Room Air Room Air Room Air Room Air 09/28/16 09/28/16 09/28/16 09/28/16 09:10 09:11 09:12 11:00 Temp 97.6 97.6 Pulse 83 83 85 Resp 20 B/P 178/89 178/89 149/81 Pulse Ox 97 98 O2 Delivery Room Air Room Air 09/28/16 12:31 Pulse Ox 97 O2 Delivery Room Air Intake and Output 09/27/16 09/27/16 09/28/16 15:00 23:00 07:00 Intake Total 240 ml 360 ml 1350 ml Output Total 3 ml Balance 240 ml 357 ml 1350 ml ADRIANA WEST MD Sep 28, 2016 14:21
[2016-09-28 15:00] VITALS: BP 147/79
[2016-09-28] MEDS ORDERED: WARFARIN 4 MG TABLET. PO ONE (16:00)
[2016-09-28 19:59] VITALS: BP 151/84
[2016-09-28] MEDS: NORTRIPTYLINE 25 MG CAPSULE PO SCH (20:56)
--- NOTE | 2016-09-28 22:59 | PDOC ---
Provider Note Provider Note RENAL F/U : ANATOLY S : Doing better. No new c/o No active CP or SOA O : VSS Afebrile. Alert. Neck : Supple Lungs : Non labored. Decreased bases. CVS : RRR Abd : Benign appearance. Ext : No CCE No major edema. Neuro : Grossly intact. Labs reviewed. ESRD HTN ANEMIA. Doing better HD going OK Nextr RX Friday. Follow I/Os Supportive care. Lefty Ledbetter M.D. LEFTY LEDBETTER MD Sep 28, 2016 22:59
[2016-09-28 23:35] VITALS: BP 155/88
[2016-09-29 03:59] VITALS: BP 157/97
[2016-09-29 05:44] LABS: ALBUMIN 1.6 g/dL (3.4-5.0); CALCIUM 7.9 mg/dL (8.5-10.1); CREATININE 2.9 mg/dL (0.6-1.0); PHOSPHORUS 2.2 mg/dL (2.6-4.7); POTASSIUM 3.6 mmol/L (3.5-5.1)
[2016-09-29 05:46] LABS: PROTHROMBIN TIME PATIENT 21.4 SEC (11.7-14.0)
[2016-09-29] MEDS: ONDANSETRON ODT 4 MG TAB.RAPDIS PO SCH ×3 (05:47→21:21)
[2016-09-29] MEDS: PIPERACILLIN/TAZOBACTAM 2.25 GM in IV NORMAL SALINE 50ML 50 ML IV SCH ×5 (05:47→17:07)
[2016-09-29 07:00] VITALS: BP 153/75
[2016-09-29] MEDS: BUDESONIDE 0.5 MG/2 ML NEBU NEB SCH ×2 (07:13→19:27)
[2016-09-29] MEDS: IPRATRPIUM/ALBUTEROL 0.5/2.5MG 3 ML NEBU. NEB SCH ×4 (07:13→19:27)
[2016-09-29] MEDS: SERTRALINE 50 MG TABLET. PO SCH (08:43)
[2016-09-29] MEDS: ALLOPURINOL 100 MG TABLET. PO SCH (08:43)
[2016-09-29] MEDS: PANTOPRAZOLE 40 MG TABLET. PO SCH (08:44)
[2016-09-29] MEDS: OXYCODONE ER 10 MG TAB.ER.12H. PO SCH ×2 (08:44→21:20)
[2016-09-29] MEDS: GABAPENTIN 300 MG CAPSULE. PO SCH (08:44)
[2016-09-29] MEDS: AMLODIPINE BESYLATE 5 MG TABLET PO SCH (08:45)
[2016-09-29] MEDS: CARVEDILOL 12.5 MG TABLET PO SCH ×2 (08:45→17:06)
[2016-09-29] MEDS: LIDOCAINE (700MG/PATCH) PATCH. TP SCH (08:46)
[2016-09-29 11:00] VITALS: BP 136/72
[2016-09-29] MEDS: OXYCODONE/APAP 10/325 TABLET. PO PRN (12:52)
--- NOTE | 2016-09-29 13:39 | PDOC ---
PROGRESS NOTES Chief Complaint Chief Complaint 1. Acute blood loss anemia, GI bleed, s/p EGD 2. ESRD, on HD MWF 3. Coumadin coagulopathy, 4. Hypertension, comtrolled 5. Asthma, hx 6. Obesity 7. Back pain with possible discitis 8. A fib on coumadin 9. SNU resident 10. RCC vs renal complex cyst - NEW 11. Discsitis vs OM - back -NEW 12. right renal cysts 13. hypomagnesemia plan: 1. fu with specialist, id, renal, gi 2. bone bx pending, on vanco , zosyn now 3. cont HD 4. gi stable hope to dc to SNF next Friday when cx is back. on coumadin, INR daily uro consulted , no intervention for now, fu as outpt in 6ms increase amlodipine to 5mg daily discussed with ID, either stay here till next week for cx or dc to SNF for iv abx and see ID as outpt. but her SNF wont take her for iv abx wo clear dates. keep pt here over the weekend. History of Present Illness History of Present Illness Out having HD, no acute issues per RN S/p IR back procedure yesterday Incidenatl RCC vs complex renal mass - urology has not seen pt yet CT: IMPRESSION 1. Marked discogenic disease with loss of intervertebral disc material and fluid signal at L1-L2, L2-L3 and L3-L4. There is bony endplate edema at L1-2 suggesting possible discitis and osteomyelitis. Recommend correlation with sed rate and CBC. If there is clinical in decision MR with contrast may be helpful. 2. 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 There appears to be compression of the intra foraminal course of the exiting nerve roots on the left at L3-L4 and L4-5 and on the right at L3-L4. 3. Complex cyst versus mass seen anteriorly in the right kidney. This is not well evaluated but could be a renal cell carcinoma. 4. Presacral edema is nonspecific and is of uncertain etiology. Vitals Vitals Vital Signs Date Time Temp Pulse Resp B/P Pulse Ox O2 Delivery O2 Flow Rate FiO2 09/29/16 11:02 Room Air 09/29/16 11:00 97.8 77 18 136/72 98 97.8 09/28/16 20:10 97.0 Physical Exam General: Alert, Oriented X3, Cooperative, No acute distress Heart: Normal S1, Normal S2 Lungs: Clear Abdomen: Normal bowel sounds, Soft, No tenderness, No hepatosplenomegaly Extremities: No clubbing, No cyanosis, Other (back, no spinal tenderness. ) Skin: No rashes, No significant lesion, Other Labs LABS Laboratory Tests Test 09/28/16 16:32 09/28/16 21:07 09/29/16 04:35 09/29/16 07:27 Glucose (Fingerstick) 118mg/dL (70-99) 126mg/dL (70-99) 102mg/dL (70-99) Prothrombin Time 21.4SEC (11.7-14.0) Prothromb Time International Ratio 2.0 (0.8-1.1) Sodium Level 139mmol/L (136-145) Potassium Level 3.6mmol/L (3.5-5.1) Chloride Level 102mmol/L (98-107) Carbon Dioxide Level 28mmol/L (21-32) Anion Gap 9 (6-14) Blood Urea Nitrogen 18mg/dL (7-20) Creatinine 2.9mg/dL (0.6-1.0) Estimated GFR (Cockcroft-Gault) 20.0 Glucose Level 116mg/dL (70-99) Calcium Level 7.9mg/dL (8.5-10.1) Phosphorus Level 2.2mg/dL (2.6-4.7) Magnesium Level 2.1mg/dL (1.8-2.4) Albumin 1.6g/dL (3.4-5.0) Test 09/29/16 10:28 Glucose (Fingerstick) 109mg/dL (70-99) Review of Systems Review of Systems no fever, chills, sob or chest pain Assessment and Plan Assessmemt and Plan Problems Medical Problems: (1) Anemia Status: Acute (2) Coagulopathy Status: Acute (3) Coumadin toxicity Status: Acute (4) Elevated INR (international normalized ratio) due to prior anticoagulant medication ingestion Status: Acute (5) ESRD on dialysis Status: Acute (6) GI bleed Status: Acute Problems: Comment Review of Relevant I have reviewed the following items christi (where applicable) has been applied. Labs Laboratory Tests Test 09/27/16 16:58 09/27/16 20:54 09/28/16 06:45 09/28/16 07:25 Glucose (Fingerstick) 83mg/dL (70-99) 105mg/dL (70-99) 80mg/dL (70-99) Prothrombin Time 19.9SEC (11.7-14.0) Prothromb Time International Ratio 1.8 (0.8-1.1) Sodium Level 136mmol/L (136-145) Potassium Level 3.4mmol/L (3.5-5.1) Chloride Level 103mmol/L (98-107) Carbon Dioxide Level 31mmol/L (21-32) Anion Gap 2 (6-14) Blood Urea Nitrogen 10mg/dL (7-20) Creatinine 2.2mg/dL (0.6-1.0) Estimated GFR (Cockcroft-Gault) 27.5 Glucose Level 99mg/dL (70-99) Calcium Level 7.9mg/dL (8.5-10.1) Phosphorus Level 2.3mg/dL (2.6-4.7) Magnesium Level 1.4mg/dL (1.8-2.4) Albumin 1.6g/dL (3.4-5.0) Test 09/28/16 10:31 09/28/16 16:32 09/28/16 21:07 09/29/16 04:35 Glucose (Fingerstick) 122mg/dL (70-99) 118mg/dL (70-99) 126mg/dL (70-99) Prothrombin Time 21.4SEC (11.7-14.0) Prothromb Time International Ratio 2.0 (0.8-1.1) Sodium Level 139mmol/L (136-145) Potassium Level 3.6mmol/L (3.5-5.1) Chloride Level 102mmol/L (98-107) Carbon Dioxide Level 28mmol/L (21-32) Anion Gap 9 (6-14) Blood Urea Nitrogen 18mg/dL (7-20) Creatinine 2.9mg/dL (0.6-1.0) Estimated GFR (Cockcroft-Gault) 20.0 Glucose Level 116mg/dL (70-99) Calcium Level 7.9mg/dL (8.5-10.1) Phosphorus Level 2.2mg/dL (2.6-4.7) Magnesium Level 2.1mg/dL (1.8-2.4) Albumin 1.6g/dL (3.4-5.0) Test 09/29/16 07:27 09/29/16 10:28 Glucose (Fingerstick) 102mg/dL (70-99) 109mg/dL (70-99) Laboratory Tests Test 09/28/16 16:32 09/28/16 21:07 09/29/16 04:35 09/29/16 07:27 Glucose (Fingerstick) 118mg/dL (70-99) 126mg/dL (70-99) 102mg/dL (70-99) Prothrombin Time 21.4SEC (11.7-14.0) Prothromb Time International Ratio 2.0 (0.8-1.1) Sodium Level 139mmol/L (136-145) Potassium Level 3.6mmol/L (3.5-5.1) Chloride Level 102mmol/L (98-107) Carbon Dioxide Level 28mmol/L (21-32) Anion Gap 9 (6-14) Blood Urea Nitrogen 18mg/dL (7-20) Creatinine 2.9mg/dL (0.6-1.0) Estimated GFR (Cockcroft-Gault) 20.0 Glucose Level 116mg/dL (70-99) Calcium Level 7.9mg/dL (8.5-10.1) Phosphorus Level 2.2mg/dL (2.6-4.7) Magnesium Level 2.1mg/dL (1.8-2.4) Albumin 1.6g/dL (3.4-5.0) Test 09/29/16 10:28 Glucose (Fingerstick) 109mg/dL (70-99) Microbiology 09/24/16 Blood Culture - Final, Complete NO GROWTH AFTER 5 DAYS 09/24/16 Anaerobic/Aerobic Culture - Preliminary, Resulted 09/24/16 Anaerobic Culture Result 1 (CONNOR) - Preliminary, Resulted 09/24/16 Aerobic Culture - Final, Resulted 09/24/16 Aerobic Culture Result 1 (CONNOR) - Final, Resulted Medications Current Medications Oxycodone/ Acetaminophen (Percocet 5/325) 1 tab 1X ONCE PO ; Start 09/09/16 at 19:00; Stop 09/09/16 at 19:01; Status DC Hydromorphone HCl 1 mg 1 mg 1X ONCE IV Last administered on 09/09/16 19:21; Start 09/09/16 at 19:15; Stop 09/09/16 at 19:16; Status DC Pantoprazole Sodium/Sodium Chloride (Protonix Iv/Iv Sodium Chloride 0.9% 100ml) 100 ml @ 10 mls/hr 1X ONCE IV Last administered on 09/09/16 19:51; Start at 19:30; Stop 09/10/16 at 05:29; Status DC Ondansetron HCl 4 mg 4 mg PRN Q8HRS PRN IV NAUSEA/VOMITING Last administered on 09/09/16 19:51; Start 09/09/16 at 19:30; Stop 09/10/16 at 19:29; Status DC Sodium Chloride (Iv Sodium Chloride 0.9% 1000ml Bag) 1,000 ml @ 100 mls/hr Q10H IV Last administered on 09/09/16 19:51; Start 09/09/16 at 19:30; Stop at 06:00; Status DC Acetaminophen (Tylenol) 650 mg PRN Q4HRS PRN PO FEVER Last administered on 09/09 19:52; Start 09/09/16 at 19:30; Stop 09/10/16 at 19:29; Status DC Multi-Ingredient Mouthwash/Gargle 15 ml 15 ml 1X ONCE SWSW Last administered on 09/09/16 23:41; Start 09/09/16 at 23:30; Stop 09/09/16 at 23:31; Status DC Phytonadione/ Sodium Chloride (Vitamin K/Iv Sodium Chloride 0.9% 50ml) 51 ml @ 102 mls/hr 1X ONCE IV Last administered on 09/10/16 02:07; Start 09/10/16 at 00:00; Stop 09/10/16 at 00:29; Status DC Acetaminophen (Tylenol) 325 mg PRN Q4HRS PO ; Start 09/09/16 at 23:30; Stop at 23:30; Status DC Allopurinol (Zyloprim) 100 mg DAILY PO Last administered on 09/29/16 08:43; Start 09/10/16 at 09:00 Bisacodyl (Dulcolax Supp) 10 mg PRN DAILY PRN RC CONSTIPATION; Start 09/09/16 at 23:30 Cyclobenzaprine HCl (Flexeril) 10 mg PRN TID PRN PO back pain Last administered on 09/21/16 15:14; Start 09/09/16 at 23:30 Gabapentin (Neurontin) 300 mg DAILY PO Last administered on 09/29/16 08:44; Start 09/10/16 at 09:00 Ipratropium [place] (Atrovent) 0.2 mg QID NEB ; Start 09/10/16 at 09:00; Status UNV Lidocaine (Lidoderm) 1 patch DAILY TP Last administered on 09/29/16 08:46; Start 09/10/16 at 09:00 Nortriptyline HCl (Pamelor) 25 mg QHS PO Last administered on 09/28/16 20:56; Start 09/10/16 at 21:00 Oxycodone HCl (Oxycontin) 10 mg BID PO Last administered on 09/29/16 08:44; Start 09/10/16 at 09:00 Oxycodone/ Acetaminophen (Percocet 10/325) 1 tab PRN Q4HRS PRN PO SEVERE PAIN Last administered on 09/29/16 12:52; Start 09/09/16 at 23:30 Non-Formulary Medication 2 puff Q4HRS INH FOR ASTHMA; Start 09/10/16 at 00:00; Status UNV Carvedilol (Coreg) 25 mg BIDWMEALS PO Last administered on 09/29/16 08:45; Start 09/10/16 at 08:00 Non-Formulary Medication 1 puff BID IH ; Start 09/10/16 at 09:00; Status UNV Ondansetron HCl (Zofran Odt) 8 mg Q8HRS PO Last administered on 09/29/16 05:47 ; Start 09/10/16 at 06:00 Sertraline HCl (Zoloft) 100 mg DAILY PO Last administered on 09/29/16 08:43; Start 09/10/16 at 09:00 Labetalol HCl (Normodyne) 20 mg PRN Q2HR PRN IVP HYPERTENSION, SEE COMMENTS Last administered on 09/25/16 05:47; Start 09/09/16 at 23:30 Albuterol/ Ipratropium (Duoneb) 3 ml RTQID NEB Last administered on 09/29/16 11:02; Start 09/10/16 at 08:00 Budesonide (Pulmicort) 0.5 mg RTBID NEB Last administered on 09/29/16 07:13; Start 09/10/16 at 08:00 Albuterol Sulfate 2.5 mg 2.5 mg PRN Q4HRS PRN NEB SHORTNESS OF BREATH; Start at 23:30 Pantoprazole Sodium 80 mg/ Sodium Chloride 100 ml @ 10 mls/hr Q10H IV Last administered on 09/13/16 07:51; Start 09/10/16 at 10:00; Stop 09/13/16 at 09:59 ; Status DC Magnesium Sulfate/ Dextrose 50 ml @ 25 mls/hr PRN DAILY PRN IV for Mag < 1.7 on am labs; Start 09/10/16 at 10:00; Stop 09/22/16 at 11:36; Status DC Sodium Chloride (Iv Sodium Chloride 0.9% 1000ml Bag) 1,000 ml @ 1,000 mls/hr Q1H PRN IV hypotension; Start 09/11/16 at 08:50; Stop 09/11/16 at 14:49; Status DC Diphenhydramine HCl (Benadryl) 25 mg 1X PRN PRN IV ITCHING; Start 09/11/16 at 09:00; Stop 09/12/16 at 08:59; Status DC Diphenhydramine HCl (Benadryl) 25 mg 1X PRN PRN IV ITCHING; Start 09/11/16 at 09:00; Stop 09/12/16 at 08:59; Status DC Sodium Chloride (Normal Saline Flush) 10 ml 1X PRN PRN IV AP catheter pack; Start 09/11/16 at 09:00; Stop 09/12/16 at 08:59; Status DC Sodium Chloride (Normal Saline Flush) 10 ml 1X PRN PRN IV FEEDER SWITCHBOARD OPERATOR catheter pack; Start 09/11/16 at 09:00; Stop 09/12/16 at 08:59; Status DC Labetalol HCl 10 mg 10 mg PRN Q1HR PRN IVP SBP > 180; Start 09/11/16 at 09:00; Stop 09/12/16 at 08:59; Status DC Sodium Chloride (Iv Sodium Chloride 0.9% 1000ml Bag) 1,000 ml @ 400 mls/hr Q2H30M PRN IV PATENCY; Start 09/11/16 at 08:50; Stop 09/11/16 at 20:49; Status DC Info (PHARMACY MONITORING -- do not chart) 1 each PRN DAILY PRN MC SEE COMMENTS ; Start 09/11/16 at 09:00 Info (PHARMACY MONITORING -- do not chart) 1 each PRN DAILY PRN MC SEE COMMENTS ; Start 09/11/16 at 09:00; Status UNV Sodium Cl/Sod Bicarb/Potass Cl/ PEG (Golytely) 4,000 ml 1X ONCE PO Last administered on 09/11/16t 17:13; Start 09/11/16 at 13:00; Stop 09/11/16 at 13:01 ; Status DC Fentanyl Citrate (Fentanyl 2ml Vial) 25 mcg PRN Q5MIN PRN IV MILD PAIN; Start 09/12/16 at 07:00; Stop 09/13/16 at 06:59; Status DC Fentanyl Citrate 50 mcg 50 mcg PRN Q5MIN PRN IV MODERATE PAIN; Start 09/12/16 at 07:00; Stop 09/13/16 at 06:59; Status DC Lactated Ringer's (Iv Lactated Ringers) 1,000 ml @ 0 mls/hr Q0M IV ; Start at 07:00; Stop 09/12/16 at 18:59; Status DC Lidocaine HCl 2 ml 1X PRN PRN ID IV START; Start 09/12/16 at 07:00; Stop at 06:59; Status DC Prochlorperazine Edisylate (Compazine) 5 mg PACU PRN PRN IV NAUSEA; Start 09/12 at 07:00; Stop 09/13/16 at 06:59; Status DC Pantoprazole Sodium 40 mg 40 mg DAILYAC IVP ; Start 09/13/16 at 07:30; Status UNV Magnesium Sulfate/ Dextrose 50 ml @ 25 mls/hr 1X ONCE IV ; Start 09/12/16 at 11 :30; Stop 09/12/16 at 13:29; Status DC Propofol 0 ml @ As Directed STK-MED ONCE IV ; Start 09/12/16 at 12:55; Stop at 12:56; Status DC Propofol (Diprivan) 20 ml @ As Directed STK-MED ONCE IV ; Start 09/12/16 at 12: 55; Stop 09/12/16 at 12:56; Status Cancel Lidocaine HCl (Lidocaine Pf 2% Vial) 5 ml STK-MED ONCE .ROUTE ; Start 09/12/16 at 12:55; Stop 09/12/16 at 12:56; Status DC Lorazepam (Ativan) 2 mg PRN Q4HRS PRN IV ANXIETY / AGITATION Last administered on 09/26/16t 03:00; Start 09/12/16 at 14:15 Lorazepam (Ativan) 2 mg Q4HRS PRN IV ANXIETY / AGITATION; Start 09/12/16 at 14: 15; Status UNV Haloperidol Lactate (Haldol) 2.5 mg PRN Q6HRS PRN IM AGITATION; Start 09/12/16 at 14:15; Stop 09/26/16 at 14:02; Status DC Haloperidol Lactate (Haldol) 2.5 mg PRN Q6HRS PRN IVP AGITATION; Start at 14:15; Stop 09/26/16 at 14:02; Status DC Lorazepam 2 mg 2 mg PRN Q4HRS PRN IM ANXIETY / AGITATION; Start 09/12/16 at 14: 30; Stop 09/17/16 at 14:37; Status DC Sodium Chloride (Iv Sodium Chloride 0.9% 1000ml Bag) 1,000 ml @ 1,000 mls/hr Q1H PRN IV hypotension; Start 09/13/16 at 08:39; Stop 09/13/16 at 14:38; Status DC Diphenhydramine HCl (Benadryl) 25 mg 1X PRN PRN IV ITCHING; Start 09/13/16 at 08:45; Stop 09/14/16 at 08:44; Status DC Diphenhydramine HCl (Benadryl) 25 mg 1X PRN PRN IV ITCHING; Start 09/13/16 at 08:45; Stop 09/14/16 at 08:44; Status DC Sodium Chloride (Normal Saline Flush) 10 ml 1X PRN PRN IV AP catheter pack; Start 09/13/16 at 08:45; Stop 09/14/16 at 08:44; Status DC Sodium Chloride (Normal Saline Flush) 10 ml 1X PRN PRN IV FEEDER SWITCHBOARD OPERATOR catheter pack; Start 09/13/16 at 08:45; Stop 09/14/16 at 08:44; Status DC Labetalol HCl (Normodyne) 10 mg PRN Q1HR PRN IVP SBP > 180; Start 09/13/16 at 08:45; Stop 09/14/16 at 08:44; Status DC Info (PHARMACY MONITORING -- do not chart) 1 each PRN DAILY PRN MC SEE COMMENTS ; Start 09/13/16 at 08:45; Status UNV Info (PHARMACY MONITORING -- do not chart) 1 each PRN DAILY PRN MC SEE COMMENTS ; Start 09/13/16 at 08:45; Status UNV Pantoprazole Sodium 40 mg 40 mg DAILYAC IVP Last administered on 09/16/16t 05: 57; Start 09/13/16 at 13:00; Stop 09/17/16 at 10:02; Status DC Sodium Chloride (Iv Sodium Chloride 0.9% 1000ml Bag) 1,000 ml @ 1,000 mls/hr Q1H PRN IV hypotension; Start 09/16/16 at 08:46; Stop 09/16/16 at 14:45; Status DC Diphenhydramine HCl (Benadryl) 25 mg 1X PRN PRN IV ITCHING; Start 09/16/16 at 09:00; Stop 09/17/16 at 08:59; Status DC Diphenhydramine HCl (Benadryl) 25 mg 1X PRN PRN IV ITCHING; Start 09/16/16 at 09:00; Stop 09/17/16 at 08:59; Status DC Sodium Chloride (Normal Saline Flush) 10 ml 1X PRN PRN IV AP catheter pack; Start 09/16/16 at 09:00; Stop 09/17/16 at 08:59; Status DC Sodium Chloride (Normal Saline Flush) 10 ml 1X PRN PRN IV FEEDER SWITCHBOARD OPERATOR catheter pack; Start 09/16/16 at 09:00; Stop 09/17/16 at 08:59; Status DC Info (PHARMACY MONITORING -- do not chart) 1 each PRN DAILY PRN MC SEE COMMENTS ; Start 09/16/16 at 09:00; Status UNV Info (PHARMACY MONITORING -- do not chart) 1 each PRN DAILY PRN MC SEE COMMENTS ; Start 09/16/16 at 09:00; Status UNV Darbepoetin Ernst (Aranesp) 60 mcg [id number] SQ Last administered on 09/23/16 20: 43; Start 09/16/16 at 21:00; Stop 09/26/16 at 11:05; Status DC Pantoprazole Sodium (Protonix) 40 mg DAILYAC PO Last administered on 09/29/16 08:44; Start 09/17/16 at 10:02 Fentanyl Citrate (Fentanyl 2ml Vial) 25 mcg PRN Q5MIN PRN IV MILD PAIN; Start 09/18/16 at 07:00; Stop 09/19/16 at 06:59; Status DC Fentanyl Citrate 50 mcg 50 mcg PRN Q5MIN PRN IV MODERATE PAIN; Start 09/18/16 at 07:00; Stop 09/19/16 at 06:59; Status DC Lactated Ringer's (Iv Lactated Ringers) 1,000 ml @ 0 mls/hr Q0M IV ; Start 09/18 at 07:00; Stop 09/18/16 at 18:59; Status DC Lidocaine HCl 2 ml 1X PRN PRN ID IV START; Start 09/18/16 at 07:00; Stop at 06:59; Status DC Prochlorperazine Edisylate (Compazine) 5 mg PACU PRN PRN IV NAUSEA; Start at 07:00; Stop 09/19/16 at 06:59; Status DC Dextrose 25 gm 25 gm STK-MED ONCE IV Last administered on 09/18/16 08:19; Start 09/18/16 at 08:19; Stop 09/18/16 at 08:20; Status DC Propofol (Diprivan) 20 ml @ As Directed STK-MED ONCE IV ; Start 09/18/16 at 11:13 ; Stop 09/18/16 at 11:14; Status DC Lidocaine HCl 5 ml 5 ml STK-MED ONCE .ROUTE ; Start 09/18/16 at 11:13; Stop at 11:14; Status DC Sodium Chloride 1,000 ml @ 100 mls/hr 1X ONCE IV Last administered on t 11:29; Start 09/18/16 at 11:30; Stop 09/18/16 at 21:29; Status DC Sodium Chloride (Iv Sodium Chloride 0.9% 1000ml Bag) 1,000 ml @ 1,000 mls/hr Q1H PRN IV hypotension; Start 09/18/16 at 13:47; Stop 09/18/16 at 19:46; Status DC Acetaminophen (Tylenol) 500 mg 1X PRN PRN PO MILD PAIN / TEMP; Start 09/18/16 at 14:00; Stop 09/19/16 at 13:59; Status DC Diphenhydramine HCl (Benadryl) 25 mg 1X PRN PRN IV ITCHING; Start 09/18/16 at 14 :00; Stop 09/19/16 at 13:59; Status DC Diphenhydramine HCl (Benadryl) 25 mg 1X PRN PRN IV ITCHING; Start 09/18/16 at 14 :00; Stop 09/19/16 at 13:59; Status DC Labetalol HCl 10 mg 10 mg PRN Q1HR PRN IVP SBP > 180; Start 09/18/16 at 14:00; Stop 09/19/16 at 13:59; Status DC Sodium Chloride (Iv Sodium Chloride 0.9% 1000ml Bag) 1,000 ml @ 400 mls/hr Q2H30M PRN IV PATENCY; Start 09/18/16 at 13:47; Stop 09/19/16 at 01:46; Status DC Info 1 each 1 each PRN DAILY PRN MC SEE COMMENTS; Start 09/18/16 at 14:00; Status UNV Sodium Chloride 1,000 ml @ 1,000 mls/hr Q1H PRN IV hypotension; Start 09/20/16 at 07:30; Stop 09/20/16 at 18:00; Status DC Albumin Human (Albuminar) 200 ml @ 200 mls/hr 1X PRN PRN IV Hypotension; Start 09/20/16 at 07:45; Stop 09/20/16 at 14:00; Status DC Acetaminophen (Tylenol) 500 mg 1X PRN PRN PO MILD PAIN / TEMP; Start 09/20/16 at 07:45; Stop 09/20/16 at 18:00; Status DC Diphenhydramine HCl (Benadryl) 25 mg 1X PRN PRN IV ITCHING; Start 09/20/16 at 07 :45; Stop 09/20/16 at 18:00; Status DC Diphenhydramine HCl (Benadryl) 25 mg 1X PRN PRN IV ITCHING; Start 09/20/16 at 07 :45; Stop 09/20/16 at 18:00; Status DC Sodium Chloride (Normal Saline Flush) 10 ml 1X PRN PRN IV AP catheter pack; Start 09/20/16 at 07:45; Stop 09/20/16 at 18:00; Status DC Sodium Chloride (Normal Saline Flush) 10 ml 1X PRN PRN IV FEEDER SWITCHBOARD OPERATOR catheter pack; Start 09/20/16 at 07:45; Stop 09/20/16 at 18:00; Status DC Labetalol HCl 10 mg 10 mg PRN Q1HR PRN IVP SBP > 180; Start 09/20/16 at 07:45; Stop 09/20/16 at 18:00; Status DC Sodium Chloride (Iv Sodium Chloride 0.9% 1000ml Bag) 1,000 ml @ 400 mls/hr Q2H30M PRN IV PATENCY; Start 09/20/16 at 07:45; Stop 09/20/16 at 18:00; Status DC Info (PHARMACY MONITORING -- do not chart) 1 each PRN DAILY PRN MC SEE COMMENTS ; Start 09/20/16 at 07:45; Status UNV Warfarin Sodium (Coumadin Per Pharmacy) 1 each PRN DAILY PRN MC SEE COMMENTS Last administered on 09/29/16 10:48; Start 09/20/16 at 14:30 Warfarin Sodium (Coumadin) 2 mg 1X WARF ONCE PO Last administered on 09/20/16 17:27; Start 09/20/16 at 17:14; Stop 09/20/16 at 17:15; Status DC Methylprednisolone Acetate (Depo-Medrol 80mg Vial) 80 mg 1X ONCE IM ; Start 09/20/16 at 17:30; Stop 09/20/16 at 17:33; Status DC Methylprednisolone Acetate (Depo-Medrol 40mg Vial) 40 mg 1X ONCE IM ; Start 09/20/16 at 17:30; Stop 09/20/16 at 17:33; Status DC Bupivacaine HCl (Sensorcaine-Mpf 0.25%) 10 ml 1X ONCE IJ ; Start 09/20/16 at 17: 30; Stop 09/20/16 at 17:33; Status DC Warfarin Sodium (Coumadin) 2 mg 1X WARF ONCE PO Last administered on 09/21/16 17:14; Start 09/21/16 at 16:00; Stop 09/21/16 at 16:01; Status DC Warfarin Sodium 3 mg 3 mg 1X WARF ONCE PO Last administered on 09/22/16 17:28 ; Start 09/22/16 at 16:00; Stop 09/22/16 at 16:01; Status DC Sodium Chloride (Iv Sodium Chloride 0.9% 1000ml Bag) 1,000 ml @ 1,000 mls/hr Q1H PRN IV hypotension; Start 09/23/16 at 14:18; Stop 09/23/16 at 21:00; Status DC Sodium Chloride (Normal Saline Flush) 10 ml 1X PRN PRN IV AP catheter pack; Start 09/23/16 at 14:30; Stop 09/23/16 at 21:00; Status DC Sodium Chloride (Normal Saline Flush) 10 ml 1X PRN PRN IV FEEDER SWITCHBOARD OPERATOR catheter pack; Start 09/23/16 at 14:30; Stop 09/23/16 at 21:00; Status DC Info (PHARMACY MONITORING -- do not chart) 1 each PRN DAILY PRN MC SEE COMMENTS ; Start 09/23/16 at 14:30; Status UNV Info (PHARMACY MONITORING -- do not chart) 1 each PRN DAILY PRN MC SEE COMMENTS ; Start 09/23/16 at 14:30; Status UNV Warfarin Sodium (Coumadin) 3 mg 1X ONCE PO Last administered on 09/23/16 17:34 ; Start 09/23/16 at 17:00; Stop 09/23/16 at 17:01; Status DC Lidocaine/Sodium Bicarbonate (Buffered Lidocaine 1%) 20 ml STK-MED ONCE IJ ; Start 09/24/16 at 14:59; Stop 09/24/16 at 15:00; Status DC Fentanyl Citrate (Fentanyl 2ml Vial) 100 mcg STK-MED ONCE .ROUTE ; Start at 15:05; Stop 09/24/16 at 15:06; Status DC Midazolam HCl (Versed) 2 mg STK-MED ONCE .ROUTE ; Start 09/24/16 at 15:05; Stop 09/24/16 at 15:06; Status DC Lidocaine/Sodium Bicarbonate (Buffered Lidocaine 1%) 20 ml 1X ONCE IJ Last administered on 09/24/16 16:13; Start 09/24/16 at 16:15; Stop 09/24/16 at 16:16; Status DC Midazolam HCl (Versed) 2 mg 1X ONCE IV Last administered on 09/24/16 16:14; Start 09/24/16 at 16:15; Stop 09/24/16 at 16:16; Status DC Fentanyl Citrate (Fentanyl 2ml Vial) 100 mcg 1X ONCE IV Last administered on 16:15; Start 09/24/16 at 16:15; Stop 09/24/16 at 16:16; Status DC Warfarin Sodium 2 mg 2 mg 1X ONCE PO Last administered on 09/24/16 16:35; Start 09/24/16 at 17:00; Stop 09/24/16 at 17:01; Status DC Sodium Chloride 1,000 ml @ 1,000 mls/hr Q1H PRN IV hypotension; Start 09/25/16 at 08:38; Stop 09/25/16 at 14:37; Status DC Albumin Human (Albuminar) 200 ml @ 200 mls/hr 1X PRN PRN IV Hypotension; Start 09/25/16 at 08:45; Stop 09/25/16 at 14:44; Status DC Acetaminophen (Tylenol) 500 mg 1X PRN PRN PO MILD PAIN / TEMP; Start 09/25/16 at 08:45; Stop 09/26/16 at 08:44; Status DC Diphenhydramine HCl (Benadryl) 25 mg 1X PRN PRN IV ITCHING; Start 09/25/16 at 08 :45; Stop 09/26/16 at 08:44; Status DC Info (PHARMACY MONITORING -- do not chart) 1 each PRN DAILY PRN MC SEE COMMENTS ; Start 09/25/16 at 08:45; Status UNV Vancomycin HCl 1 each 1 each PRN DAILY PRN MC SEE COMMENTS Last administered on 09/28/16 08:22; Start 09/25/16 at 09:15 Piperacillin Sod/ Tazobactam Sod 2.25 gm/Sodium Chloride 50 ml @ 100 mls/hr Q6HRS IV Last administered on 09/29/16 12:51; Start 09/25/16 at 10:00 Vancomycin HCl/ Sodium Chloride (Iv Sodium Chloride 0.9% 500ml Bag) 500 ml @ 250 mls/hr ONCE ONCE IV Last administered on 09/25/16 13:32; Start 09/25/16 at 10:00; Stop 09/25/16 at 11:59; Status DC Warfarin Sodium (Coumadin) 4 mg 1X WARF ONCE PO ; Start 09/25/16 at 16:00; Stop 09/25/16 at 16:00; Status DC Warfarin Sodium 3 mg 3 mg 1X WARF ONCE PO Last administered on 09/25/16 16:00 ; Start 09/25/16 at 16:00; Stop 09/25/16 at 16:01; Status DC Magnesium Sulfate/ Dextrose (Magnesium Sulfate PREMIX 2GM) 50 ml @ 25 mls/hr PRN DAILY PRN IV for Mag < 1.7 on am labs Last administered on 09/28/16 18:18 ; Start 09/26/16 at 11:15 Darbepoetin Ernst (Aranesp) 100 mcg Th SQ Last administered on 09/26/16 20:40; Start 09/26/16 at 21:00 Amlodipine Besylate (Norvasc) 2.5 mg DAILY PO Last administered on 09/26/16 12: 21; Start 09/26/16 at 11:00; Stop 09/26/16 at 14:02; Status DC Amlodipine Besylate (Norvasc) 5 mg DAILY PO Last administered on 09/29/16 08: 45; Start 09/27/16 at 09:00 Warfarin Sodium (Coumadin) 5 mg 1X WARF ONCE PO Last administered on 09/26/16 16:15; Start 09/26/16 at 16:00; Stop 09/26/16 at 16:01; Status DC Vancomycin HCl 1 each 1 each 1X ONCE MC ; Start 09/27/16 at 16:00; Stop at 16:01; Status DC Sodium Chloride 1,000 ml @ 1,000 mls/hr Q1H PRN IV hypotension; Start 09/27/16 at 09:47; Stop 09/27/16 at 15:46; Status DC Albumin Human (Albuminar) 200 ml @ 200 mls/hr 1X PRN PRN IV Hypotension; Start 09/27/16 at 10:00; Stop 09/27/16 at 15:59; Status DC Acetaminophen (Tylenol) 500 mg 1X PRN PRN PO MILD PAIN / TEMP; Start 09/27/16 at 10:00; Stop 09/28/16 at 09:59; Status DC Diphenhydramine HCl (Benadryl) 25 mg 1X PRN PRN IV ITCHING; Start 09/27/16 at 10:00; Stop 09/28/16 at 09:59; Status DC Diphenhydramine HCl (Benadryl) 25 mg 1X PRN PRN IV ITCHING; Start 09/27/16 at 10:00; Stop 09/28/16 at 09:59; Status DC Labetalol HCl 10 mg 10 mg PRN Q1HR PRN IVP SBP > 180; Start 09/27/16 at 10:00; Stop 09/28/16 at 09:59; Status DC Sodium Chloride (Iv Sodium Chloride 0.9% 1000ml Bag) 1,000 ml @ 400 mls/hr Q2H30M PRN IV PATENCY; Start 09/27/16 at 09:47; Stop 09/27/16 at 21:46; Status DC Info (PHARMACY MONITORING -- do not chart) 1 each PRN DAILY PRN MC SEE COMMENTS ; Start 09/27/16 at 10:00; Status UNV Warfarin Sodium 5 mg 5 mg 1X WARF ONCE PO Last administered on 09/27/16 17:11 ; Start 09/27/16 at 16:00; Stop 09/27/16 at 16:01; Status DC Vancomycin HCl/ Sodium Chloride (Iv Sodium Chloride 0.9% 250ml) 250 ml @ 250 mls/hr ONCE ONCE IV Last administered on 09/27/16 21:15; Start 09/27/16 at 20 :10; Stop 09/27/16 at 21:09; Status DC Potassium Chloride (Klor-Con) 40 meq 1X ONCE PO Last administered on 12:04; Start 09/28/16 at 12:30; Stop 09/28/16 at 12:31; Status DC Warfarin Sodium (Coumadin) 4 mg 1X WARF ONCE PO Last administered on 15:32; Start 09/28/16 at 16:00; Stop 09/28/16 at 16:01; Status DC Warfarin Sodium (Coumadin) 4 mg 1X WARF ONCE PO ; Start 09/29/16 at 16:00; Stop 09/29/16 at 16:01 Active Scripts Active Reported [Mylanta] Tylenol (Acetaminophen) 325 Mg Tablet 1 Tab PO PRN Q4HRS Fleet Enema (Na Phos,M-B/Na Phos,Di-Ba) 133 Ml Enema 1 Each RC ONCE Dulcolax (Bisacodyl) 10 Mg Supp.rect 10 Mg RC PRN DAILY PRN Zofran Odt (Ondansetron) 8 Mg Tab.rapdis 1 Tab PO PRN Q8HRS PRN Nitrostat (Nitroglycerin) 0.4 Mg Tab.subl 1 Tab SL UD Cyclobenzaprine Hcl 10 Mg Tablet 1 Tab PO TID Zepatier 50-100 mg Tablet (Elbasvir/Grazoprevir) 1 Each Tablet 1 Each PO [PhosLo] Coreg (Carvedilol) 25 Mg Tablet 1 Tab PO BID Aspirin 81 Mg Tab.chew 1 Tab PO DAILY Allopurinol 100 Mg Tablet 1 Tab PO DAILY Ventolin Hfa Inhaler (Albuterol Sulfate) 18 Gm Hfa.aer.ad 2 Puff INH Q4HRS Nephplex Rx Tablet (Vit B Cmplx No3/Fa/C/Biot/Zinc) 1 Each Tablet 1 Each PO Senokot (Sennosides) 8.6 Mg Tablet 1 Tab PO BID Oxycontin (Oxycodone HCl) 10 Mg Tab.er.12h 10 Mg PO BID Glycolax (Polyethylene Glycol 3350) 119 Gm Powder 17 Gm PO UD Percocet 10-325 Mg Tablet (Oxycodone/Acetaminophen) 1 Each Tablet 1 Tab PO Q4- 6HRS Vitamin D3 (Cholecalciferol (Vitamin D3)) 1,000 Unit Tablet 1 Tab PO DAILY Advair 250-50 Diskus (Fluticasone/Salmeterol) 1 Each Disk.w.dev 1 Puff IH BID Ipratropium [place] 0.2 Mg/1 Ml Solution 1 Vial NEB QID Lidoderm (Lidocaine) 700 Mg Adh..patch 1 Patch TP DAILY Nortriptyline Hcl 25 Mg Capsule 1 Cap PO QHS Ciprofloxacin Hcl 250 Mg Tablet 1 Tab PO BID Warfarin Sodium 2 Mg Tablet 1.5 Mg PO DAILY Gabapentin 300 Mg Capsule 300 Mg PO TID Zoloft (Sertraline Hcl) 100 Mg Tablet 1 Tab PO DAILY Vitals/I & O Vital Sign - Last 24 Hours 09/28/16 09/28/16 09/28/16 09/28/16 15:00 16:59 18:15 19:59 Temp 97.8 98.5 97.8 98.5 Pulse 84 84 83 Resp 20 20 B/P 147/79 147/79 151/84 Pulse Ox 95 97 99 O2 Delivery Room Air Room Air Room Air 09/28/16 09/28/16 09/28/16 09/28/16 20:10 20:57 21:06 23:35 Temp 98.2 98.2 Pulse 80 Resp 18 B/P 155/88 Pulse Ox 99 98 O2 Delivery Room Air Room Air Room Air Room Air O2 Flow Rate 97.0 09/29/16 09/29/16 09/29/16 09/29/16 01:39 03:59 07:00 07:13 Temp 98.2 97.8 98.2 97.8 Pulse 81 77 Resp 18 18 18 B/P 157/97 153/75 Pulse Ox 100 100 96 O2 Delivery Room Air Room Air Room Air Room Air 09/29/16 09/29/16 09/29/16 09/29/16 08:45 08:45 11:00 11:02 Temp 97.8 97.8 Pulse 77 77 77 Resp 18 B/P 153/75 153/75 136/72 Pulse Ox 98 O2 Delivery Room Air Room Air Intake and Output 09/28/16 09/28/16 09/29/16 15:00 23:00 07:00 Intake Total 480 ml 280 ml 450 ml Output Total 100 ml Balance 480 ml 180 ml 450 ml ADRIANA WEST MD Sep 29, 2016 13:39
[2016-09-29 14:50] VITALS: BP 155/71
[2016-09-29] MEDS ORDERED: WARFARIN 4 MG TABLET. PO ONE (16:00)
[2016-09-29] MEDS: VANCOMYCIN PER PHARMACY MC PRN ×2 (16:08→16:15)
[2016-09-29 19:00] VITALS: BP 128/76
[2016-09-29] MEDS: NORTRIPTYLINE 25 MG CAPSULE PO SCH (21:20)
[2016-09-29 23:00] VITALS: BP 165/82
[2016-09-30] MEDS: PIPERACILLIN/TAZOBACTAM 2.25 GM in IV NORMAL SALINE 50ML 50 ML IV SCH ×4 (00:48→17:13)
[2016-09-30 03:00] VITALS: BP 175/93
[2016-09-30] MEDS: OXYCODONE/APAP 10/325 TABLET. PO PRN ×2 (04:35→15:43)
[2016-09-30] MEDS: ONDANSETRON ODT 4 MG TAB.RAPDIS PO SCH ×3 (05:52→22:00)
[2016-09-30] MEDS: PANTOPRAZOLE 40 MG TABLET. PO SCH (05:52)
[2016-09-30 06:24] LABS: INR 2.1 (0.8-1.1); PROTHROMBIN TIME PATIENT 22.4 SEC (11.7-14.0)
[2016-09-30 06:28] LABS: ALBUMIN 1.7 g/dL (3.4-5.0); CALCIUM 8.3 mg/dL (8.5-10.1); CREATININE 3.7 mg/dL (0.6-1.0); GFR 15.1; PHOSPHORUS 2.4 mg/dL (2.6-4.7); POTASSIUM 3.8 mmol/L (3.5-5.1)
[2016-09-30 07:00] VITALS: BP 161/92
[2016-09-30] MEDS: BUDESONIDE 0.5 MG/2 ML NEBU NEB SCH ×2 (07:33→19:25)
[2016-09-30] MEDS: IPRATRPIUM/ALBUTEROL 0.5/2.5MG 3 ML NEBU. NEB SCH ×4 (07:33→19:25)
[2016-09-30] MEDS ORDERED: IV NORMAL SALINE 1000ML BAG 1,000 ML IV PRN ×2 (08:00)
--- NOTE | 2016-09-30 08:44 | PDOC ---
PROGRESS NOTES Chief Complaint Chief Complaint Anemia History of Present Illness History of Present Illness Patient is seen during dialysis. No acute events overnight. She reports she is feeling better and is ready to leave the hospital. She plans to go to the [facility] upon discharge. Vitals Vitals Vital Signs Date Time Temp Pulse Resp B/P Pulse Ox O2 Delivery O2 Flow Rate FiO2 09/30/16 07:33 91 Room Air 09/30/16 07:23 97.0 09/30/16 07:00 97.7 94 161/92 97.7 09/30/16 05:35 20 Physical Exam General: Alert, Oriented X3, Cooperative, No acute distress Heart: Regular rate, Normal S1, Normal S2 Lungs: Clear, Other (No wheezing) Abdomen: Soft, No tenderness Extremities: No cyanosis, Other (no spinal tenderness) Skin: No rashes, No significant lesion Labs LABS Laboratory Tests Test 09/29/16 10:28 09/29/16 15:27 09/29/16 20:45 09/30/16 05:30 Glucose (Fingerstick) 109mg/dL (70-99) 113mg/dL (70-99) 137mg/dL (70-99) Prothrombin Time 22.4SEC (11.7-14.0) Prothromb Time International Ratio 2.1 (0.8-1.1) Test 09/30/16 05:50 Sodium Level 138mmol/L (136-145) Potassium Level 3.8mmol/L (3.5-5.1) Chloride Level 102mmol/L (98-107) Carbon Dioxide Level 26mmol/L (21-32) Anion Gap 10 (6-14) Blood Urea Nitrogen 24mg/dL (7-20) Creatinine 3.7mg/dL (0.6-1.0) Estimated GFR (Cockcroft-Gault) 15.1 Glucose Level 108mg/dL (70-99) Calcium Level 8.3mg/dL (8.5-10.1) Phosphorus Level 2.4mg/dL (2.6-4.7) Albumin 1.7g/dL (3.4-5.0) Review of Systems Review of Systems Patient denies fever or chills. Denies chest pain or shortness of breath. Assessment and Plan Assessmemt and Plan Problems Medical Problems: (1) Anemia Status: Acute (2) Coagulopathy Status: Acute (3) Coumadin toxicity Status: Acute (4) Elevated INR (international normalized ratio) due to prior anticoagulant medication ingestion Status: Acute (5) ESRD on dialysis Status: Acute (6) GI bleed Status: Acute 1. Acute blood loss anemia, GI bleed, s/p EGD 2. ESRD, on HD MWF 3. Coumadin coagulopathy, 4. Hypertension, controlled 5. History of asthma 6. Obesity 7. Back pain with possible discitis 8. A fib on Coumadin 9. SNU resident 10. RCC vs renal complex cyst - NEW 11. Discitis vs OM - back -NEW 12. Right renal cysts 13. Hypomagnesemia PLAN: ID, Renal, Urology and GI consulted, recommendations appreciated Bone biopsy pending, Continue vanco and zosyn Continue Hemodialysis On Coumadin, continue to monitor INR daily Continue to monitor daily labs Probable discharge to SNF ([facility]) today. Problems: Comment Review of Relevant I have reviewed the following items christi (where applicable) has been applied. Labs Laboratory Tests Test 09/28/16 10:31 09/28/16 16:32 09/28/16 21:07 09/29/16 04:35 Glucose (Fingerstick) 122mg/dL (70-99) 118mg/dL (70-99) 126mg/dL (70-99) Prothrombin Time 21.4SEC (11.7-14.0) Prothromb Time International Ratio 2.0 (0.8-1.1) Sodium Level 139mmol/L (136-145) Potassium Level 3.6mmol/L (3.5-5.1) Chloride Level 102mmol/L (98-107) Carbon Dioxide Level 28mmol/L (21-32) Anion Gap 9 (6-14) Blood Urea Nitrogen 18mg/dL (7-20) Creatinine 2.9mg/dL (0.6-1.0) Estimated GFR (Cockcroft-Gault) 20.0 Glucose Level 116mg/dL (70-99) Calcium Level 7.9mg/dL (8.5-10.1) Phosphorus Level 2.2mg/dL (2.6-4.7) Magnesium Level 2.1mg/dL (1.8-2.4) Albumin 1.6g/dL (3.4-5.0) Test 09/29/16 07:27 09/29/16 10:28 09/29/16 15:27 09/29/16 20:45 Glucose (Fingerstick) 102mg/dL (70-99) 109mg/dL (70-99) 113mg/dL (70-99) 137mg/dL (70-99) Test 09/30/16 05:30 09/30/16 05:50 Prothrombin Time 22.4SEC (11.7-14.0) Prothromb Time International Ratio 2.1 (0.8-1.1) Sodium Level 138mmol/L (136-145) Potassium Level 3.8mmol/L (3.5-5.1) Chloride Level 102mmol/L (98-107) Carbon Dioxide Level 26mmol/L (21-32) Anion Gap 10 (6-14) Blood Urea Nitrogen 24mg/dL (7-20) Creatinine 3.7mg/dL (0.6-1.0) Estimated GFR (Cockcroft-Gault) 15.1 Glucose Level 108mg/dL (70-99) Calcium Level 8.3mg/dL (8.5-10.1) Phosphorus Level 2.4mg/dL (2.6-4.7) Albumin 1.7g/dL (3.4-5.0) Laboratory Tests Test 09/29/16 10:28 09/29/16 15:27 09/29/16 20:45 09/30/16 05:30 Glucose (Fingerstick) 109mg/dL (70-99) 113mg/dL (70-99) 137mg/dL (70-99) Prothrombin Time 22.4SEC (11.7-14.0) Prothromb Time International Ratio 2.1 (0.8-1.1) Test 09/30/16 05:50 Sodium Level 138mmol/L (136-145) Potassium Level 3.8mmol/L (3.5-5.1) Chloride Level 102mmol/L (98-107) Carbon Dioxide Level 26mmol/L (21-32) Anion Gap 10 (6-14) Blood Urea Nitrogen 24mg/dL (7-20) Creatinine 3.7mg/dL (0.6-1.0) Estimated GFR (Cockcroft-Gault) 15.1 Glucose Level 108mg/dL (70-99) Calcium Level 8.3mg/dL (8.5-10.1) Phosphorus Level 2.4mg/dL (2.6-4.7) Albumin 1.7g/dL (3.4-5.0) Microbiology 09/24/16 Blood Culture - Final, Complete NO GROWTH AFTER 5 DAYS 09/24/16 Anaerobic/Aerobic Culture - Preliminary, Resulted 09/24/16 Anaerobic Culture Result 1 (CONNOR) - Preliminary, Resulted 09/24/16 Aerobic Culture - Final, Resulted 09/24/16 Aerobic Culture Result 1 (CONNOR) - Final, Resulted Medications Current Medications Oxycodone/ Acetaminophen (Percocet 5/325) 1 tab 1X ONCE PO ; Start 09/09/16 at 19:00; Stop 09/09/16 at 19:01; Status DC Hydromorphone HCl 1 mg 1 mg 1X ONCE IV Last administered on 09/09/16 19:21; Start 09/09/16 at 19:15; Stop 09/09/16 at 19:16; Status DC Pantoprazole Sodium/Sodium Chloride (Protonix Iv/Iv Sodium Chloride 0.9% 100ml) 100 ml @ 10 mls/hr 1X ONCE IV Last administered on 09/09/16 19:51; Start at 19:30; Stop 09/10/16 at 05:29; Status DC Ondansetron HCl 4 mg 4 mg PRN Q8HRS PRN IV NAUSEA/VOMITING Last administered on 09/09/16 19:51; Start 09/09/16 at 19:30; Stop 09/10/16 at 19:29; Status DC Sodium Chloride (Iv Sodium Chloride 0.9% 1000ml Bag) 1,000 ml @ 100 mls/hr Q10H IV Last administered on 09/09/16 19:51; Start 09/09/16 at 19:30; Stop at 06:00; Status DC Acetaminophen (Tylenol) 650 mg PRN Q4HRS PRN PO FEVER Last administered on 09/09 19:52; Start 09/09/16 at 19:30; Stop 09/10/16 at 19:29; Status DC Multi-Ingredient Mouthwash/Gargle 15 ml 15 ml 1X ONCE SWSW Last administered on 09/09/16 23:41; Start 09/09/16 at 23:30; Stop 09/09/16 at 23:31; Status DC Phytonadione/ Sodium Chloride (Vitamin K/Iv Sodium Chloride 0.9% 50ml) 51 ml @ 102 mls/hr 1X ONCE IV Last administered on 09/10/16 02:07; Start 09/10/16 at 00:00; Stop 09/10/16 at 00:29; Status DC Acetaminophen (Tylenol) 325 mg PRN Q4HRS PO ; Start 09/09/16 at 23:30; Stop at 23:30; Status DC Allopurinol (Zyloprim) 100 mg DAILY PO Last administered on 09/29/16 08:43; Start 09/10/16 at 09:00 Bisacodyl (Dulcolax Supp) 10 mg PRN DAILY PRN RC CONSTIPATION; Start 09/09/16 at 23:30 Cyclobenzaprine HCl (Flexeril) 10 mg PRN TID PRN PO back pain Last administered on 09/21/16 15:14; Start 09/09/16 at 23:30 Gabapentin (Neurontin) 300 mg DAILY PO Last administered on 09/29/16 08:44; Start 09/10/16 at 09:00 Ipratropium [place] (Atrovent) 0.2 mg QID NEB ; Start 09/10/16 at 09:00; Status UNV Lidocaine (Lidoderm) 1 patch DAILY TP Last administered on 09/29/16 08:46; Start 09/10/16 at 09:00 Nortriptyline HCl (Pamelor) 25 mg QHS PO Last administered on 09/29/16 21:20; Start 09/10/16 at 21:00 Oxycodone HCl (Oxycontin) 10 mg BID PO Last administered on 09/29/16 21:20; Start 09/10/16 at 09:00 Oxycodone/ Acetaminophen (Percocet 10/325) 1 tab PRN Q4HRS PRN PO SEVERE PAIN Last administered on 09/30/16 04:35; Start 09/09/16 at 23:30 Non-Formulary Medication 2 puff Q4HRS INH FOR ASTHMA; Start 09/10/16 at 00:00; Status UNV Carvedilol (Coreg) 25 mg BIDWMEALS PO Last administered on 09/29/16 17:06; Start 09/10/16 at 08:00 Non-Formulary Medication 1 puff BID IH ; Start 09/10/16 at 09:00; Status UNV Ondansetron HCl (Zofran Odt) 8 mg Q8HRS PO Last administered on 09/30/16 05:52 ; Start 09/10/16 at 06:00 Sertraline HCl (Zoloft) 100 mg DAILY PO Last administered on 09/29/16 08:43; Start 09/10/16 at 09:00 Labetalol HCl (Normodyne) 20 mg PRN Q2HR PRN IVP HYPERTENSION, SEE COMMENTS Last administered on 09/25/16 05:47; Start 09/09/16 at 23:30 Albuterol/ Ipratropium (Duoneb) 3 ml RTQID NEB Last administered on 09/30/16 07:33; Start 09/10/16 at 08:00 Budesonide (Pulmicort) 0.5 mg RTBID NEB Last administered on 09/30/16 07:33; Start 09/10/16 at 08:00 Albuterol Sulfate 2.5 mg 2.5 mg PRN Q4HRS PRN NEB SHORTNESS OF BREATH; Start at 23:30 Pantoprazole Sodium 80 mg/ Sodium Chloride 100 ml @ 10 mls/hr Q10H IV Last administered on 09/13/16 07:51; Start 09/10/16 at 10:00; Stop 09/13/16 at 09:59 ; Status DC Magnesium Sulfate/ Dextrose 50 ml @ 25 mls/hr PRN DAILY PRN IV for Mag < 1.7 on am labs; Start 09/10/16 at 10:00; Stop 09/22/16 at 11:36; Status DC Sodium Chloride (Iv Sodium Chloride 0.9% 1000ml Bag) 1,000 ml @ 1,000 mls/hr Q1H PRN IV hypotension; Start 09/11/16 at 08:50; Stop 09/11/16 at 14:49; Status DC Diphenhydramine HCl (Benadryl) 25 mg 1X PRN PRN IV ITCHING; Start 09/11/16 at 09:00; Stop 09/12/16 at 08:59; Status DC Diphenhydramine HCl (Benadryl) 25 mg 1X PRN PRN IV ITCHING; Start 09/11/16 at 09:00; Stop 09/12/16 at 08:59; Status DC Sodium Chloride (Normal Saline Flush) 10 ml 1X PRN PRN IV AP catheter pack; Start 09/11/16 at 09:00; Stop 09/12/16 at 08:59; Status DC Sodium Chloride (Normal Saline Flush) 10 ml 1X PRN PRN IV [employer] catheter pack; Start 09/11/16 at 09:00; Stop 09/12/16 at 08:59; Status DC Labetalol HCl 10 mg 10 mg PRN Q1HR PRN IVP SBP > 180; Start 09/11/16 at 09:00; Stop 09/12/16 at 08:59; Status DC Sodium Chloride (Iv Sodium Chloride 0.9% 1000ml Bag) 1,000 ml @ 400 mls/hr Q2H30M PRN IV PATENCY; Start 09/11/16 at 08:50; Stop 09/11/16 at 20:49; Status DC Info (PHARMACY MONITORING -- do not chart) 1 each PRN DAILY PRN MC SEE COMMENTS ; Start 09/11/16 at 09:00 Info (PHARMACY MONITORING -- do not chart) 1 each PRN DAILY PRN MC SEE COMMENTS ; Start 09/11/16 at 09:00; Status UNV Sodium Cl/Sod Bicarb/Potass Cl/ PEG (Golytely) 4,000 ml 1X ONCE PO Last administered on 09/11/16t 17:13; Start 09/11/16 at 13:00; Stop 09/11/16 at 13:01 ; Status DC Fentanyl Citrate (Fentanyl 2ml Vial) 25 mcg PRN Q5MIN PRN IV MILD PAIN; Start 09/12/16 at 07:00; Stop 09/13/16 at 06:59; Status DC Fentanyl Citrate 50 mcg 50 mcg PRN Q5MIN PRN IV MODERATE PAIN; Start 09/12/16 at 07:00; Stop 09/13/16 at 06:59; Status DC Lactated Ringer's (Iv Lactated Ringers) 1,000 ml @ 0 mls/hr Q0M IV ; Start at 07:00; Stop 09/12/16 at 18:59; Status DC Lidocaine HCl 2 ml 1X PRN PRN ID IV START; Start 09/12/16 at 07:00; Stop at 06:59; Status DC Prochlorperazine Edisylate (Compazine) 5 mg PACU PRN PRN IV NAUSEA; Start 09/12 at 07:00; Stop 09/13/16 at 06:59; Status DC Pantoprazole Sodium 40 mg 40 mg DAILYAC IVP ; Start 09/13/16 at 07:30; Status UNV Magnesium Sulfate/ Dextrose 50 ml @ 25 mls/hr 1X ONCE IV ; Start 09/12/16 at 11 :30; Stop 09/12/16 at 13:29; Status DC Propofol 0 ml @ As Directed STK-MED ONCE IV ; Start 09/12/16 at 12:55; Stop at 12:56; Status DC Propofol (Diprivan) 20 ml @ As Directed STK-MED ONCE IV ; Start 09/12/16 at 12: 55; Stop 09/12/16 at 12:56; Status Cancel Lidocaine HCl (Lidocaine Pf 2% Vial) 5 ml STK-MED ONCE .ROUTE ; Start 09/12/16 at 12:55; Stop 09/12/16 at 12:56; Status DC Lorazepam (Ativan) 2 mg PRN Q4HRS PRN IV ANXIETY / AGITATION Last administered on 09/26/16t 03:00; Start 09/12/16 at 14:15 Lorazepam (Ativan) 2 mg Q4HRS PRN IV ANXIETY / AGITATION; Start 09/12/16 at 14: 15; Status UNV Haloperidol Lactate (Haldol) 2.5 mg PRN Q6HRS PRN IM AGITATION; Start 09/12/16 at 14:15; Stop 09/26/16 at 14:02; Status DC Haloperidol Lactate (Haldol) 2.5 mg PRN Q6HRS PRN IVP AGITATION; Start at 14:15; Stop 09/26/16 at 14:02; Status DC Lorazepam 2 mg 2 mg PRN Q4HRS PRN IM ANXIETY / AGITATION; Start 09/12/16 at 14: 30; Stop 09/17/16 at 14:37; Status DC Sodium Chloride (Iv Sodium Chloride 0.9% 1000ml Bag) 1,000 ml @ 1,000 mls/hr Q1H PRN IV hypotension; Start 09/13/16 at 08:39; Stop 09/13/16 at 14:38; Status DC Diphenhydramine HCl (Benadryl) 25 mg 1X PRN PRN IV ITCHING; Start 09/13/16 at 08:45; Stop 09/14/16 at 08:44; Status DC Diphenhydramine HCl (Benadryl) 25 mg 1X PRN PRN IV ITCHING; Start 09/13/16 at 08:45; Stop 09/14/16 at 08:44; Status DC Sodium Chloride (Normal Saline Flush) 10 ml 1X PRN PRN IV AP catheter pack; Start 09/13/16 at 08:45; Stop 09/14/16 at 08:44; Status DC Sodium Chloride (Normal Saline Flush) 10 ml 1X PRN PRN IV [employer] catheter pack; Start 09/13/16 at 08:45; Stop 09/14/16 at 08:44; Status DC Labetalol HCl (Normodyne) 10 mg PRN Q1HR PRN IVP SBP > 180; Start 09/13/16 at 08:45; Stop 09/14/16 at 08:44; Status DC Info (PHARMACY MONITORING -- do not chart) 1 each PRN DAILY PRN MC SEE COMMENTS ; Start 09/13/16 at 08:45; Status UNV Info (PHARMACY MONITORING -- do not chart) 1 each PRN DAILY PRN MC SEE COMMENTS ; Start 09/13/16 at 08:45; Status UNV Pantoprazole Sodium 40 mg 40 mg DAILYAC IVP Last administered on 09/16/16t 05: 57; Start 09/13/16 at 13:00; Stop 09/17/16 at 10:02; Status DC Sodium Chloride (Iv Sodium Chloride 0.9% 1000ml Bag) 1,000 ml @ 1,000 mls/hr Q1H PRN IV hypotension; Start 09/16/16 at 08:46; Stop 09/16/16 at 14:45; Status DC Diphenhydramine HCl (Benadryl) 25 mg 1X PRN PRN IV ITCHING; Start 09/16/16 at 09:00; Stop 09/17/16 at 08:59; Status DC Diphenhydramine HCl (Benadryl) 25 mg 1X PRN PRN IV ITCHING; Start 09/16/16 at 09:00; Stop 09/17/16 at 08:59; Status DC Sodium Chloride (Normal Saline Flush) 10 ml 1X PRN PRN IV AP catheter pack; Start 09/16/16 at 09:00; Stop 09/17/16 at 08:59; Status DC Sodium Chloride (Normal Saline Flush) 10 ml 1X PRN PRN IV [employer] catheter pack; Start 09/16/16 at 09:00; Stop 09/17/16 at 08:59; Status DC Info (PHARMACY MONITORING -- do not chart) 1 each PRN DAILY PRN MC SEE COMMENTS ; Start 09/16/16 at 09:00; Status UNV Info (PHARMACY MONITORING -- do not chart) 1 each PRN DAILY PRN MC SEE COMMENTS ; Start 09/16/16 at 09:00; Status UNV Darbepoetin Ernst (Aranesp) 60 mcg [id number] SQ Last administered on 09/23/16 20: 43; Start 09/16/16 at 21:00; Stop 09/26/16 at 11:05; Status DC Pantoprazole Sodium (Protonix) 40 mg DAILYAC PO Last administered on 09/30/16 05:52; Start 09/17/16 at 10:02 Fentanyl Citrate (Fentanyl 2ml Vial) 25 mcg PRN Q5MIN PRN IV MILD PAIN; Start 09/18/16 at 07:00; Stop 09/19/16 at 06:59; Status DC Fentanyl Citrate 50 mcg 50 mcg PRN Q5MIN PRN IV MODERATE PAIN; Start 09/18/16 at 07:00; Stop 09/19/16 at 06:59; Status DC Lactated Ringer's (Iv Lactated Ringers) 1,000 ml @ 0 mls/hr Q0M IV ; Start 09/18 at 07:00; Stop 09/18/16 at 18:59; Status DC Lidocaine HCl 2 ml 1X PRN PRN ID IV START; Start 09/18/16 at 07:00; Stop at 06:59; Status DC Prochlorperazine Edisylate (Compazine) 5 mg PACU PRN PRN IV NAUSEA; Start at 07:00; Stop 09/19/16 at 06:59; Status DC Dextrose 25 gm 25 gm STK-MED ONCE IV Last administered on 09/18/16 08:19; Start 09/18/16 at 08:19; Stop 09/18/16 at 08:20; Status DC Propofol (Diprivan) 20 ml @ As Directed STK-MED ONCE IV ; Start 09/18/16 at 11:13 ; Stop 09/18/16 at 11:14; Status DC Lidocaine HCl 5 ml 5 ml STK-MED ONCE .ROUTE ; Start 09/18/16 at 11:13; Stop at 11:14; Status DC Sodium Chloride 1,000 ml @ 100 mls/hr 1X ONCE IV Last administered on 11:29; Start 09/18/16 at 11:30; Stop 09/18/16 at 21:29; Status DC Sodium Chloride (Iv Sodium Chloride 0.9% 1000ml Bag) 1,000 ml @ 1,000 mls/hr Q1H PRN IV hypotension; Start 09/18/16 at 13:47; Stop 09/18/16 at 19:46; Status DC Acetaminophen (Tylenol) 500 mg 1X PRN PRN PO MILD PAIN / TEMP; Start 09/18/16 at 14:00; Stop 09/19/16 at 13:59; Status DC Diphenhydramine HCl (Benadryl) 25 mg 1X PRN PRN IV ITCHING; Start 09/18/16 at 14 :00; Stop 09/19/16 at 13:59; Status DC Diphenhydramine HCl (Benadryl) 25 mg 1X PRN PRN IV ITCHING; Start 09/18/16 at 14 :00; Stop 09/19/16 at 13:59; Status DC Labetalol HCl 10 mg 10 mg PRN Q1HR PRN IVP SBP > 180; Start 09/18/16 at 14:00; Stop 09/19/16 at 13:59; Status DC Sodium Chloride (Iv Sodium Chloride 0.9% 1000ml Bag) 1,000 ml @ 400 mls/hr Q2H30M PRN IV PATENCY; Start 09/18/16 at 13:47; Stop 09/19/16 at 01:46; Status DC Info 1 each 1 each PRN DAILY PRN MC SEE COMMENTS; Start 09/18/16 at 14:00; Status UNV Sodium Chloride 1,000 ml @ 1,000 mls/hr Q1H PRN IV hypotension; Start 09/20/16 at 07:30; Stop 09/20/16 at 18:00; Status DC Albumin Human (Albuminar) 200 ml @ 200 mls/hr 1X PRN PRN IV Hypotension; Start 09/20/16 at 07:45; Stop 09/20/16 at 14:00; Status DC Acetaminophen (Tylenol) 500 mg 1X PRN PRN PO MILD PAIN / TEMP; Start 09/20/16 at 07:45; Stop 09/20/16 at 18:00; Status DC Diphenhydramine HCl (Benadryl) 25 mg 1X PRN PRN IV ITCHING; Start 09/20/16 at 07 :45; Stop 09/20/16 at 18:00; Status DC Diphenhydramine HCl (Benadryl) 25 mg 1X PRN PRN IV ITCHING; Start 09/20/16 at 07 :45; Stop 09/20/16 at 18:00; Status DC Sodium Chloride (Normal Saline Flush) 10 ml 1X PRN PRN IV AP catheter pack; Start 09/20/16 at 07:45; Stop 09/20/16 at 18:00; Status DC Sodium Chloride (Normal Saline Flush) 10 ml 1X PRN PRN IV [employer] catheter pack; Start 09/20/16 at 07:45; Stop 09/20/16 at 18:00; Status DC Labetalol HCl 10 mg 10 mg PRN Q1HR PRN IVP SBP > 180; Start 09/20/16 at 07:45; Stop 09/20/16 at 18:00; Status DC Sodium Chloride (Iv Sodium Chloride 0.9% 1000ml Bag) 1,000 ml @ 400 mls/hr Q2H30M PRN IV PATENCY; Start 09/20/16 at 07:45; Stop 09/20/16 at 18:00; Status DC Info (PHARMACY MONITORING -- do not chart) 1 each PRN DAILY PRN MC SEE COMMENTS ; Start 09/20/16 at 07:45; Status UNV Warfarin Sodium (Coumadin Per Pharmacy) 1 each PRN DAILY PRN MC SEE COMMENTS Last administered on 09/29/16 10:48; Start 09/20/16 at 14:30 Warfarin Sodium (Coumadin) 2 mg 1X WARF ONCE PO Last administered on 09/20/16 17:27; Start 09/20/16 at 17:14; Stop 09/20/16 at 17:15; Status DC Methylprednisolone Acetate (Depo-Medrol 80mg Vial) 80 mg 1X ONCE IM ; Start 09/20/16 at 17:30; Stop 09/20/16 at 17:33; Status DC Methylprednisolone Acetate (Depo-Medrol 40mg Vial) 40 mg 1X ONCE IM ; Start 09/20/16 at 17:30; Stop 09/20/16 at 17:33; Status DC Bupivacaine HCl (Sensorcaine-Mpf 0.25%) 10 ml 1X ONCE IJ ; Start 09/20/16 at 17: 30; Stop 09/20/16 at 17:33; Status DC Warfarin Sodium (Coumadin) 2 mg 1X WARF ONCE PO Last administered on 09/21/16 17:14; Start 09/21/16 at 16:00; Stop 09/21/16 at 16:01; Status DC Warfarin Sodium 3 mg 3 mg 1X WARF ONCE PO Last administered on 09/22/16 17:28 ; Start 09/22/16 at 16:00; Stop 09/22/16 at 16:01; Status DC Sodium Chloride (Iv Sodium Chloride 0.9% 1000ml Bag) 1,000 ml @ 1,000 mls/hr Q1H PRN IV hypotension; Start 09/23/16 at 14:18; Stop 09/23/16 at 21:00; Status DC Sodium Chloride (Normal Saline Flush) 10 ml 1X PRN PRN IV AP catheter pack; Start 09/23/16 at 14:30; Stop 09/23/16 at 21:00; Status DC Sodium Chloride (Normal Saline Flush) 10 ml 1X PRN PRN IV [employer] catheter pack; Start 09/23/16 at 14:30; Stop 09/23/16 at 21:00; Status DC Info (PHARMACY MONITORING -- do not chart) 1 each PRN DAILY PRN MC SEE COMMENTS ; Start 09/23/16 at 14:30; Status UNV Info (PHARMACY MONITORING -- do not chart) 1 each PRN DAILY PRN MC SEE COMMENTS ; Start 09/23/16 at 14:30; Status UNV Warfarin Sodium (Coumadin) 3 mg 1X ONCE PO Last administered on 09/23/16 17:34 ; Start 09/23/16 at 17:00; Stop 09/23/16 at 17:01; Status DC Lidocaine/Sodium Bicarbonate (Buffered Lidocaine 1%) 20 ml STK-MED ONCE IJ ; Start 09/24/16 at 14:59; Stop 09/24/16 at 15:00; Status DC Fentanyl Citrate (Fentanyl 2ml Vial) 100 mcg STK-MED ONCE .ROUTE ; Start at 15:05; Stop 09/24/16 at 15:06; Status DC Midazolam HCl (Versed) 2 mg STK-MED ONCE .ROUTE ; Start 09/24/16 at 15:05; Stop 09/24/16 at 15:06; Status DC Lidocaine/Sodium Bicarbonate (Buffered Lidocaine 1%) 20 ml 1X ONCE IJ Last administered on 09/24/16 16:13; Start 09/24/16 at 16:15; Stop 09/24/16 at 16:16; Status DC Midazolam HCl (Versed) 2 mg 1X ONCE IV Last administered on 09/24/16 16:14; Start 09/24/16 at 16:15; Stop 09/24/16 at 16:16; Status DC Fentanyl Citrate (Fentanyl 2ml Vial) 100 mcg 1X ONCE IV Last administered on 16:15; Start 09/24/16 at 16:15; Stop 09/24/16 at 16:16; Status DC Warfarin Sodium 2 mg 2 mg 1X ONCE PO Last administered on 09/24/16 16:35; Start 09/24/16 at 17:00; Stop 09/24/16 at 17:01; Status DC Sodium Chloride 1,000 ml @ 1,000 mls/hr Q1H PRN IV hypotension; Start 09/25/16 at 08:38; Stop 09/25/16 at 14:37; Status DC Albumin Human (Albuminar) 200 ml @ 200 mls/hr 1X PRN PRN IV Hypotension; Start 09/25/16 at 08:45; Stop 09/25/16 at 14:44; Status DC Acetaminophen (Tylenol) 500 mg 1X PRN PRN PO MILD PAIN / TEMP; Start 09/25/16 at 08:45; Stop 09/26/16 at 08:44; Status DC Diphenhydramine HCl (Benadryl) 25 mg 1X PRN PRN IV ITCHING; Start 09/25/16 at 08 :45; Stop 09/26/16 at 08:44; Status DC Info (PHARMACY MONITORING -- do not chart) 1 each PRN DAILY PRN MC SEE COMMENTS ; Start 09/25/16 at 08:45; Status UNV Vancomycin HCl 1 each 1 each PRN DAILY PRN MC SEE COMMENTS Last administered on 09/29/16 16:15; Start 09/25/16 at 09:15 Piperacillin Sod/ Tazobactam Sod 2.25 gm/Sodium Chloride 50 ml @ 100 mls/hr Q6HRS IV Last administered on 09/30/16 05:52; Start 09/25/16 at 10:00 Vancomycin HCl/ Sodium Chloride (Iv Sodium Chloride 0.9% 500ml Bag) 500 ml @ 250 mls/hr ONCE ONCE IV Last administered on 09/25/16 13:32; Start 09/25/16 at 10:00; Stop 09/25/16 at 11:59; Status DC Warfarin Sodium (Coumadin) 4 mg 1X WARF ONCE PO ; Start 09/25/16 at 16:00; Stop 09/25/16 at 16:00; Status DC Warfarin Sodium 3 mg 3 mg 1X WARF ONCE PO Last administered on 09/25/16 16:00 ; Start 09/25/16 at 16:00; Stop 09/25/16 at 16:01; Status DC Magnesium Sulfate/ Dextrose (Magnesium Sulfate PREMIX 2GM) 50 ml @ 25 mls/hr PRN DAILY PRN IV for Mag < 1.7 on am labs Last administered on 09/28/16 18:18 ; Start 09/26/16 at 11:15 Darbepoetin Ernst (Aranesp) 100 mcg Th SQ Last administered on 09/26/16 20:40; Start 09/26/16 at 21:00 Amlodipine Besylate (Norvasc) 2.5 mg DAILY PO Last administered on 09/26/16 12: 21; Start 09/26/16 at 11:00; Stop 09/26/16 at 14:02; Status DC Amlodipine Besylate (Norvasc) 5 mg DAILY PO Last administered on 09/29/16 08: 45; Start 09/27/16 at 09:00 Warfarin Sodium (Coumadin) 5 mg 1X WARF ONCE PO Last administered on 09/26/16 16:15; Start 09/26/16 at 16:00; Stop 09/26/16 at 16:01; Status DC Vancomycin HCl 1 each 1 each 1X ONCE MC ; Start 09/27/16 at 16:00; Stop at 16:01; Status DC Sodium Chloride 1,000 ml @ 1,000 mls/hr Q1H PRN IV hypotension; Start 09/27/16 at 09:47; Stop 09/27/16 at 15:46; Status DC Albumin Human (Albuminar) 200 ml @ 200 mls/hr 1X PRN PRN IV Hypotension; Start 09/27/16 at 10:00; Stop 09/27/16 at 15:59; Status DC Acetaminophen (Tylenol) 500 mg 1X PRN PRN PO MILD PAIN / TEMP; Start 09/27/16 at 10:00; Stop 09/28/16 at 09:59; Status DC Diphenhydramine HCl (Benadryl) 25 mg 1X PRN PRN IV ITCHING; Start 09/27/16 at 10:00; Stop 09/28/16 at 09:59; Status DC Diphenhydramine HCl (Benadryl) 25 mg 1X PRN PRN IV ITCHING; Start 09/27/16 at 10:00; Stop 09/28/16 at 09:59; Status DC Labetalol HCl 10 mg 10 mg PRN Q1HR PRN IVP SBP > 180; Start 09/27/16 at 10:00; Stop 09/28/16 at 09:59; Status DC Sodium Chloride (Iv Sodium Chloride 0.9% 1000ml Bag) 1,000 ml @ 400 mls/hr Q2H30M PRN IV PATENCY; Start 09/27/16 at 09:47; Stop 09/27/16 at 21:46; Status DC Info (PHARMACY MONITORING -- do not chart) 1 each PRN DAILY PRN MC SEE COMMENTS ; Start 09/27/16 at 10:00; Status UNV Warfarin Sodium 5 mg 5 mg 1X WARF ONCE PO Last administered on 09/27/16 17:11 ; Start 09/27/16 at 16:00; Stop 09/27/16 at 16:01; Status DC Vancomycin HCl/ Sodium Chloride (Iv Sodium Chloride 0.9% 250ml) 250 ml @ 250 mls/hr ONCE ONCE IV Last administered on 09/27/16 21:15; Start 09/27/16 at 20 :10; Stop 09/27/16 at 21:09; Status DC Potassium Chloride (Klor-Con) 40 meq 1X ONCE PO Last administered on 12:04; Start 09/28/16 at 12:30; Stop 09/28/16 at 12:31; Status DC Warfarin Sodium (Coumadin) 4 mg 1X WARF ONCE PO Last administered on 15:32; Start 09/28/16 at 16:00; Stop 09/28/16 at 16:01; Status DC Warfarin Sodium 4 mg 4 mg 1X WARF ONCE PO Last administered on 09/29/16 17:06 ; Start 09/29/16 at 16:00; Stop 09/29/16 at 16:01; Status DC Vancomycin HCl/ Sodium Chloride (Iv Sodium Chloride 0.9% 100ml) 100 ml @ 100 mls/hr QMWF IV ; Start 09/30/16 at 16:00 Active Scripts Active Reported [Mylanta] Tylenol (Acetaminophen) 325 Mg Tablet 1 Tab PO PRN Q4HRS Fleet Enema (Na Phos,M-B/Na Phos,Di-Ba) 133 Ml Enema 1 Each RC ONCE Dulcolax (Bisacodyl) 10 Mg Supp.rect 10 Mg RC PRN DAILY PRN Zofran Odt (Ondansetron) 8 Mg Tab.rapdis 1 Tab PO PRN Q8HRS PRN Nitrostat (Nitroglycerin) 0.4 Mg Tab.subl 1 Tab SL UD Cyclobenzaprine Hcl 10 Mg Tablet 1 Tab PO TID Zepatier 50-100 mg Tablet (Elbasvir/Grazoprevir) 1 Each Tablet 1 Each PO [PhosLo] Coreg (Carvedilol) 25 Mg Tablet 1 Tab PO BID Aspirin 81 Mg Tab.chew 1 Tab PO DAILY Allopurinol 100 Mg Tablet 1 Tab PO DAILY Ventolin Hfa Inhaler (Albuterol Sulfate) 18 Gm Hfa.aer.ad 2 Puff INH Q4HRS Nephplex Rx Tablet (Vit B Cmplx No3/Fa/C/Biot/Zinc) 1 Each Tablet 1 Each PO Senokot (Sennosides) 8.6 Mg Tablet 1 Tab PO BID Oxycontin (Oxycodone HCl) 10 Mg Tab.er.12h 10 Mg PO BID Glycolax (Polyethylene Glycol 3350) 119 Gm Powder 17 Gm PO UD Percocet 10-325 Mg Tablet (Oxycodone/Acetaminophen) 1 Each Tablet 1 Tab PO Q4- 6HRS Vitamin D3 (Cholecalciferol (Vitamin D3)) 1,000 Unit Tablet 1 Tab PO DAILY Advair 250-50 Diskus (Fluticasone/Salmeterol) 1 Each Disk.w.dev 1 Puff IH BID Ipratropium [place] 0.2 Mg/1 Ml Solution 1 Vial NEB QID Lidoderm (Lidocaine) 700 Mg Adh..patch 1 Patch TP DAILY Nortriptyline Hcl 25 Mg Capsule 1 Cap PO QHS Ciprofloxacin Hcl 250 Mg Tablet 1 Tab PO BID Warfarin Sodium 2 Mg Tablet 1.5 Mg PO DAILY Gabapentin 300 Mg Capsule 300 Mg PO TID Zoloft (Sertraline Hcl) 100 Mg Tablet 1 Tab PO DAILY Vitals/I & O Vital Sign - Last 24 Hours 09/29/16 09/29/16 09/29/16 09/29/16 08:45 08:45 11:00 11:02 Temp 97.8 97.8 Pulse 77 77 77 Resp 18 B/P 153/75 153/75 136/72 Pulse Ox 98 O2 Delivery Room Air Room Air 09/29/16 09/29/16 09/29/16 09/29/16 14:50 15:05 17:06 19:00 Temp 99.9 97.3 99.9 97.3 Pulse 81 81 75 Resp 18 20 B/P 155/71 155/71 128/76 Pulse Ox 98 99 O2 Delivery Room Air Room Air Room Air 09/29/16 09/29/16 09/29/16 09/29/16 19:28 19:29 20:00 21:20 Resp 20 Pulse Ox 99 O2 Delivery Room Air Room Air Room Air Room Air 09/29/16 09/30/16 09/30/16 09/30/16 23:00 01:20 03:00 04:35 Temp 98.3 97.6 98.3 97.6 Pulse 83 87 Resp 20 20 20 20 B/P 165/82 175/93 Pulse Ox 94 93 93 93 O2 Delivery Room Air Room Air Room Air Room Air 09/30/16 09/30/16 09/30/16 09/30/16 05:35 07:00 07:23 07:33 Temp 97.7 97.7 Pulse 94 Resp 20 B/P 161/92 Pulse Ox 95 92 91 O2 Delivery Room Air Room Air Room Air Room Air O2 Flow Rate 97.0 Intake and Output 09/29/16 09/29/16 09/30/16 15:00 23:00 07:00 Intake Total 360 ml 120 ml 950 ml Output Total 450 ml Balance 360 ml 120 ml 500 ml TNAA ANDREW III DO Sep 30, 2016 08:44
[2016-09-30] MEDS: ALLOPURINOL 100 MG TABLET. PO SCH (09:00)
[2016-09-30] MEDS ORDERED: DIPHENHYDRAMINE 50 MG/ML VIAL IV PRN ×2 (09:00)
[2016-09-30] MEDS ORDERED: ACETAMINOPHEN 500 MG TABLET PO PRN (09:00)
[2016-09-30] MEDS: LIDOCAINE (700MG/PATCH) PATCH. TP SCH (09:00)
[2016-09-30] MEDS ORDERED: DIALYSIS PATIENT. MC PRN (09:00)
--- NOTE | 2016-09-30 10:13 | PDOC ---
Objective: Objective: No GI concerns per RN. DC held due to need for IV atbx. Vital Signs: Vital Signs Date Time Temp Pulse Resp B/P Pulse Ox O2 Delivery O2 Flow Rate FiO2 09/30/16 07:33 91 Room Air 09/30/16 07:23 97.0 09/30/16 07:00 97.7 94 161/92 97.7 09/30/16 05:35 20 Labs: Laboratory Tests Test 09/29/16 10:28 09/29/16 15:27 09/29/16 20:45 09/30/16 05:30 Glucose (Fingerstick) 109mg/dL 113mg/dL 137mg/dL Prothrombin Time 22.4SEC Prothromb Time International Ratio 2.1 Test 09/30/16 05:50 Sodium Level 138mmol/L Potassium Level 3.8mmol/L Chloride Level 102mmol/L Carbon Dioxide Level 26mmol/L Anion Gap 10 Blood Urea Nitrogen 24mg/dL Creatinine 3.7mg/dL Estimated GFR (Cockcroft-Gault) 15.1 Glucose Level 108mg/dL Calcium Level 8.3mg/dL Phosphorus Level 2.4mg/dL Magnesium Level 2.1mg/dL Albumin 1.7g/dL PE: GEN: NAD, dialyzing ABD: non-distended NEURO/PSYCH: asleep - did not awaken A/P: Anemia -no further bleeding, Hgb stable on Coumadin w/ PPI -EGD 09/18 w/ non-erosive gastritis, reports normal colonoscopy @[facility] last year -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 Await DC plans. JORGE YANG Sep 30, 2016 10:13
--- NOTE | 2016-09-30 10:15 | PDOC ---
PROGRESS NOTES Subjective Subjective No new complaints. Objective Objective Vital Signs Date Time Temp Pulse Resp B/P Pulse Ox O2 Delivery O2 Flow Rate FiO2 09/30/16 07:33 91 Room Air 09/30/16 07:23 97.0 09/30/16 07:00 97.7 94 161/92 97.7 09/30/16 05:35 20 Intake and Output 09/30/16 07:00 Intake Total 1430 ml Output Total 450 ml Balance 980 ml Intake Oral 1430 ml Output Urine Total 450 ml # Voids 1 # Bowel Movements 1 Physical Exam Physical Exam She is comfortable supine receiving hemodialysis. Assessment Assessment Problems Medical Problems: (1) Anemia Status: Acute (2) Coagulopathy Status: Acute (3) Coumadin toxicity Status: Acute (4) Elevated INR (international normalized ratio) due to prior anticoagulant medication ingestion Status: Acute (5) ESRD on dialysis Status: Acute (6) GI bleed Status: Acute Plan Plan of Care To get her up as tolerated. Comment Review of Relevant I have reviewed the following items christi (where applicable) has been applied. Labs Laboratory Tests Test 09/28/16 10:31 09/28/16 16:32 09/28/16 21:07 09/29/16 04:35 Glucose (Fingerstick) 122mg/dL (70-99) 118mg/dL (70-99) 126mg/dL (70-99) Prothrombin Time 21.4SEC (11.7-14.0) Prothromb Time International Ratio 2.0 (0.8-1.1) Sodium Level 139mmol/L (136-145) Potassium Level 3.6mmol/L (3.5-5.1) Chloride Level 102mmol/L (98-107) Carbon Dioxide Level 28mmol/L (21-32) Anion Gap 9 (6-14) Blood Urea Nitrogen 18mg/dL (7-20) Creatinine 2.9mg/dL (0.6-1.0) Estimated GFR (Cockcroft-Gault) 20.0 Glucose Level 116mg/dL (70-99) Calcium Level 7.9mg/dL (8.5-10.1) Phosphorus Level 2.2mg/dL (2.6-4.7) Magnesium Level 2.1mg/dL (1.8-2.4) Albumin 1.6g/dL (3.4-5.0) Test 09/29/16 07:27 09/29/16 10:28 09/29/16 15:27 09/29/16 20:45 Glucose (Fingerstick) 102mg/dL (70-99) 109mg/dL (70-99) 113mg/dL (70-99) 137mg/dL (70-99) Test 09/30/16 05:30 09/30/16 05:50 Prothrombin Time 22.4SEC (11.7-14.0) Prothromb Time International Ratio 2.1 (0.8-1.1) Sodium Level 138mmol/L (136-145) Potassium Level 3.8mmol/L (3.5-5.1) Chloride Level 102mmol/L (98-107) Carbon Dioxide Level 26mmol/L (21-32) Anion Gap 10 (6-14) Blood Urea Nitrogen 24mg/dL (7-20) Creatinine 3.7mg/dL (0.6-1.0) Estimated GFR (Cockcroft-Gault) 15.1 Glucose Level 108mg/dL (70-99) Calcium Level 8.3mg/dL (8.5-10.1) Phosphorus Level 2.4mg/dL (2.6-4.7) Magnesium Level 2.1mg/dL (1.8-2.4) Albumin 1.7g/dL (3.4-5.0) Laboratory Tests Test 09/29/16 10:28 09/29/16 15:27 09/29/16 20:45 09/30/16 05:30 Glucose (Fingerstick) 109mg/dL (70-99) 113mg/dL (70-99) 137mg/dL (70-99) Prothrombin Time 22.4SEC (11.7-14.0) Prothromb Time International Ratio 2.1 (0.8-1.1) Test 09/30/16 05:50 Sodium Level 138mmol/L (136-145) Potassium Level 3.8mmol/L (3.5-5.1) Chloride Level 102mmol/L (98-107) Carbon Dioxide Level 26mmol/L (21-32) Anion Gap 10 (6-14) Blood Urea Nitrogen 24mg/dL (7-20) Creatinine 3.7mg/dL (0.6-1.0) Estimated GFR (Cockcroft-Gault) 15.1 Glucose Level 108mg/dL (70-99) Calcium Level 8.3mg/dL (8.5-10.1) Phosphorus Level 2.4mg/dL (2.6-4.7) Magnesium Level 2.1mg/dL (1.8-2.4) Albumin 1.7g/dL (3.4-5.0) Microbiology 09/24/16 Blood Culture - Final, Complete NO GROWTH AFTER 5 DAYS 09/24/16 Anaerobic/Aerobic Culture - Preliminary, Resulted 09/24/16 Anaerobic Culture Result 1 (CONNOR) - Preliminary, Resulted 09/24/16 Aerobic Culture - Final, Resulted 09/24/16 Aerobic Culture Result 1 (CONNOR) - Final, Resulted Medications Current Medications Oxycodone/ Acetaminophen (Percocet 5/325) 1 tab 1X ONCE PO ; Start 09/09/16 at 19:00; Stop 09/09/16 at 19:01; Status DC Hydromorphone HCl 1 mg 1 mg 1X ONCE IV Last administered on 09/09/16 19:21; Start 09/09/16 at 19:15; Stop 09/09/16 at 19:16; Status DC Pantoprazole Sodium/Sodium Chloride (Protonix Iv/Iv Sodium Chloride 0.9% 100ml) 100 ml @ 10 mls/hr 1X ONCE IV Last administered on 09/09/16 19:51; Start at 19:30; Stop 09/10/16 at 05:29; Status DC Ondansetron HCl 4 mg 4 mg PRN Q8HRS PRN IV NAUSEA/VOMITING Last administered on 09/09/16 19:51; Start 09/09/16 at 19:30; Stop 09/10/16 at 19:29; Status DC Sodium Chloride (Iv Sodium Chloride 0.9% 1000ml Bag) 1,000 ml @ 100 mls/hr Q10H IV Last administered on 09/09/16 19:51; Start 09/09/16 at 19:30; Stop at 06:00; Status DC Acetaminophen (Tylenol) 650 mg PRN Q4HRS PRN PO FEVER Last administered on 09/09 19:52; Start 09/09/16 at 19:30; Stop 09/10/16 at 19:29; Status DC Multi-Ingredient Mouthwash/Gargle 15 ml 15 ml 1X ONCE SWSW Last administered on 09/09/16 23:41; Start 09/09/16 at 23:30; Stop 09/09/16 at 23:31; Status DC Phytonadione/ Sodium Chloride (Vitamin K/Iv Sodium Chloride 0.9% 50ml) 51 ml @ 102 mls/hr 1X ONCE IV Last administered on 09/10/16 02:07; Start 09/10/16 at 00:00; Stop 09/10/16 at 00:29; Status DC Acetaminophen (Tylenol) 325 mg PRN Q4HRS PO ; Start 09/09/16 at 23:30; Stop at 23:30; Status DC Allopurinol (Zyloprim) 100 mg DAILY PO Last administered on 09/29/16 08:43; Start 09/10/16 at 09:00 Bisacodyl (Dulcolax Supp) 10 mg PRN DAILY PRN RC CONSTIPATION; Start 09/09/16 at 23:30 Cyclobenzaprine HCl (Flexeril) 10 mg PRN TID PRN PO back pain Last administered on 09/21/16 15:14; Start 09/09/16 at 23:30 Gabapentin (Neurontin) 300 mg DAILY PO Last administered on 09/29/16 08:44; Start 09/10/16 at 09:00 Ipratropium Elizabeth (Atrovent) 0.2 mg QID NEB ; Start 09/10/16 at 09:00; Status UNV Lidocaine (Lidoderm) 1 patch DAILY TP Last administered on 09/30/16 09:00; Start 09/10/16 at 09:00 Nortriptyline HCl (Pamelor) 25 mg QHS PO Last administered on 09/29/16 21:20; Start 09/10/16 at 21:00 Oxycodone HCl (Oxycontin) 10 mg BID PO Last administered on 09/29/16 21:20; Start 09/10/16 at 09:00 Oxycodone/ Acetaminophen (Percocet 10/325) 1 tab PRN Q4HRS PRN PO SEVERE PAIN Last administered on 09/30/16 04:35; Start 09/09/16 at 23:30 Non-Formulary Medication 2 puff Q4HRS INH FOR ASTHMA; Start 09/10/16 at 00:00; Status UNV Carvedilol (Coreg) 25 mg BIDWMEALS PO Last administered on 09/29/16 17:06; Start 09/10/16 at 08:00 Non-Formulary Medication 1 puff BID IH ; Start 09/10/16 at 09:00; Status UNV Ondansetron HCl (Zofran Odt) 8 mg Q8HRS PO Last administered on 09/30/16 05:52 ; Start 09/10/16 at 06:00 Sertraline HCl (Zoloft) 100 mg DAILY PO Last administered on 09/29/16 08:43; Start 09/10/16 at 09:00 Labetalol HCl (Normodyne) 20 mg PRN Q2HR PRN IVP HYPERTENSION, SEE COMMENTS Last administered on 09/25/16 05:47; Start 09/09/16 at 23:30 Albuterol/ Ipratropium (Duoneb) 3 ml RTQID NEB Last administered on 09/30/16 07:33; Start 09/10/16 at 08:00 Budesonide (Pulmicort) 0.5 mg RTBID NEB Last administered on 09/30/16 07:33; Start 09/10/16 at 08:00 Albuterol Sulfate 2.5 mg 2.5 mg PRN Q4HRS PRN NEB SHORTNESS OF BREATH; Start at 23:30 Pantoprazole Sodium 80 mg/ Sodium Chloride 100 ml @ 10 mls/hr Q10H IV Last administered on 09/13/16 07:51; Start 09/10/16 at 10:00; Stop 09/13/16 at 09:59 ; Status DC Magnesium Sulfate/ Dextrose 50 ml @ 25 mls/hr PRN DAILY PRN IV for Mag < 1.7 on am labs; Start 09/10/16 at 10:00; Stop 09/22/16 at 11:36; Status DC Sodium Chloride (Iv Sodium Chloride 0.9% 1000ml Bag) 1,000 ml @ 1,000 mls/hr Q1H PRN IV hypotension; Start 09/11/16 at 08:50; Stop 09/11/16 at 14:49; Status DC Diphenhydramine HCl (Benadryl) 25 mg 1X PRN PRN IV ITCHING; Start 09/11/16 at 09:00; Stop 09/12/16 at 08:59; Status DC Diphenhydramine HCl (Benadryl) 25 mg 1X PRN PRN IV ITCHING; Start 09/11/16 at 09:00; Stop 09/12/16 at 08:59; Status DC Sodium Chloride (Normal Saline Flush) 10 ml 1X PRN PRN IV AP catheter pack; Start 09/11/16 at 09:00; Stop 09/12/16 at 08:59; Status DC Sodium Chloride (Normal Saline Flush) 10 ml 1X PRN PRN IV QUALITY MANAGER catheter pack; Start 09/11/16 at 09:00; Stop 09/12/16 at 08:59; Status DC Labetalol HCl 10 mg 10 mg PRN Q1HR PRN IVP SBP > 180; Start 09/11/16 at 09:00; Stop 09/12/16 at 08:59; Status DC Sodium Chloride (Iv Sodium Chloride 0.9% 1000ml Bag) 1,000 ml @ 400 mls/hr Q2H30M PRN IV PATENCY; Start 09/11/16 at 08:50; Stop 09/11/16 at 20:49; Status DC Info (PHARMACY MONITORING -- do not chart) 1 each PRN DAILY PRN MC SEE COMMENTS ; Start 09/11/16 at 09:00 Info (PHARMACY MONITORING -- do not chart) 1 each PRN DAILY PRN MC SEE COMMENTS ; Start 09/11/16 at 09:00; Status UNV Sodium Cl/Sod Bicarb/Potass Cl/ PEG (Golytely) 4,000 ml 1X ONCE PO Last administered on 09/11/16t 17:13; Start 09/11/16 at 13:00; Stop 09/11/16 at 13:01 ; Status DC Fentanyl Citrate (Fentanyl 2ml Vial) 25 mcg PRN Q5MIN PRN IV MILD PAIN; Start 09/12/16 at 07:00; Stop 09/13/16 at 06:59; Status DC Fentanyl Citrate 50 mcg 50 mcg PRN Q5MIN PRN IV MODERATE PAIN; Start 09/12/16 at 07:00; Stop 09/13/16 at 06:59; Status DC Lactated Ringer's (Iv Lactated Ringers) 1,000 ml @ 0 mls/hr Q0M IV ; Start at 07:00; Stop 09/12/16 at 18:59; Status DC Lidocaine HCl 2 ml 1X PRN PRN ID IV START; Start 09/12/16 at 07:00; Stop at 06:59; Status DC Prochlorperazine Edisylate (Compazine) 5 mg PACU PRN PRN IV NAUSEA; Start 09/12 at 07:00; Stop 09/13/16 at 06:59; Status DC Pantoprazole Sodium 40 mg 40 mg DAILYAC IVP ; Start 09/13/16 at 07:30; Status UNV Magnesium Sulfate/ Dextrose 50 ml @ 25 mls/hr 1X ONCE IV ; Start 09/12/16 at 11 :30; Stop 09/12/16 at 13:29; Status DC Propofol 0 ml @ As Directed STK-MED ONCE IV ; Start 09/12/16 at 12:55; Stop at 12:56; Status DC Propofol (Diprivan) 20 ml @ As Directed STK-MED ONCE IV ; Start 09/12/16 at 12: 55; Stop 09/12/16 at 12:56; Status Cancel Lidocaine HCl (Lidocaine Pf 2% Vial) 5 ml STK-MED ONCE .ROUTE ; Start 09/12/16 at 12:55; Stop 09/12/16 at 12:56; Status DC Lorazepam (Ativan) 2 mg PRN Q4HRS PRN IV ANXIETY / AGITATION Last administered on 09/26/16t 03:00; Start 09/12/16 at 14:15 Lorazepam (Ativan) 2 mg Q4HRS PRN IV ANXIETY / AGITATION; Start 09/12/16 at 14: 15; Status UNV Haloperidol Lactate (Haldol) 2.5 mg PRN Q6HRS PRN IM AGITATION; Start 09/12/16 at 14:15; Stop 09/26/16 at 14:02; Status DC Haloperidol Lactate (Haldol) 2.5 mg PRN Q6HRS PRN IVP AGITATION; Start at 14:15; Stop 09/26/16 at 14:02; Status DC Lorazepam 2 mg 2 mg PRN Q4HRS PRN IM ANXIETY / AGITATION; Start 09/12/16 at 14: 30; Stop 09/17/16 at 14:37; Status DC Sodium Chloride (Iv Sodium Chloride 0.9% 1000ml Bag) 1,000 ml @ 1,000 mls/hr Q1H PRN IV hypotension; Start 09/13/16 at 08:39; Stop 09/13/16 at 14:38; Status DC Diphenhydramine HCl (Benadryl) 25 mg 1X PRN PRN IV ITCHING; Start 09/13/16 at 08:45; Stop 09/14/16 at 08:44; Status DC Diphenhydramine HCl (Benadryl) 25 mg 1X PRN PRN IV ITCHING; Start 09/13/16 at 08:45; Stop 09/14/16 at 08:44; Status DC Sodium Chloride (Normal Saline Flush) 10 ml 1X PRN PRN IV AP catheter pack; Start 09/13/16 at 08:45; Stop 09/14/16 at 08:44; Status DC Sodium Chloride (Normal Saline Flush) 10 ml 1X PRN PRN IV QUALITY MANAGER catheter pack; Start 09/13/16 at 08:45; Stop 09/14/16 at 08:44; Status DC Labetalol HCl (Normodyne) 10 mg PRN Q1HR PRN IVP SBP > 180; Start 09/13/16 at 08:45; Stop 09/14/16 at 08:44; Status DC Info (PHARMACY MONITORING -- do not chart) 1 each PRN DAILY PRN MC SEE COMMENTS ; Start 09/13/16 at 08:45; Status UNV Info (PHARMACY MONITORING -- do not chart) 1 each PRN DAILY PRN MC SEE COMMENTS ; Start 09/13/16 at 08:45; Status UNV Pantoprazole Sodium 40 mg 40 mg DAILYAC IVP Last administered on 09/16/16t 05: 57; Start 09/13/16 at 13:00; Stop 09/17/16 at 10:02; Status DC Sodium Chloride (Iv Sodium Chloride 0.9% 1000ml Bag) 1,000 ml @ 1,000 mls/hr Q1H PRN IV hypotension; Start 09/16/16 at 08:46; Stop 09/16/16 at 14:45; Status DC Diphenhydramine HCl (Benadryl) 25 mg 1X PRN PRN IV ITCHING; Start 09/16/16 at 09:00; Stop 09/17/16 at 08:59; Status DC Diphenhydramine HCl (Benadryl) 25 mg 1X PRN PRN IV ITCHING; Start 09/16/16 at 09:00; Stop 09/17/16 at 08:59; Status DC Sodium Chloride (Normal Saline Flush) 10 ml 1X PRN PRN IV AP catheter pack; Start 09/16/16 at 09:00; Stop 09/17/16 at 08:59; Status DC Sodium Chloride (Normal Saline Flush) 10 ml 1X PRN PRN IV QUALITY MANAGER catheter pack; Start 09/16/16 at 09:00; Stop 09/17/16 at 08:59; Status DC Info (PHARMACY MONITORING -- do not chart) 1 each PRN DAILY PRN MC SEE COMMENTS ; Start 09/16/16 at 09:00; Status UNV Info (PHARMACY MONITORING -- do not chart) 1 each PRN DAILY PRN MC SEE COMMENTS ; Start 09/16/16 at 09:00; Status UNV Darbepoetin Ernst (Aranesp) 60 mcg [id number] SQ Last administered on 09/23/16 20: 43; Start 09/16/16 at 21:00; Stop 09/26/16 at 11:05; Status DC Pantoprazole Sodium (Protonix) 40 mg DAILYAC PO Last administered on 09/30/16 05:52; Start 09/17/16 at 10:02 Fentanyl Citrate (Fentanyl 2ml Vial) 25 mcg PRN Q5MIN PRN IV MILD PAIN; Start 09/18/16 at 07:00; Stop 09/19/16 at 06:59; Status DC Fentanyl Citrate 50 mcg 50 mcg PRN Q5MIN PRN IV MODERATE PAIN; Start 09/18/16 at 07:00; Stop 09/19/16 at 06:59; Status DC Lactated Ringer's (Iv Lactated Ringers) 1,000 ml @ 0 mls/hr Q0M IV ; Start 09/18 at 07:00; Stop 09/18/16 at 18:59; Status DC Lidocaine HCl 2 ml 1X PRN PRN ID IV START; Start 09/18/16 at 07:00; Stop at 06:59; Status DC Prochlorperazine Edisylate (Compazine) 5 mg PACU PRN PRN IV NAUSEA; Start at 07:00; Stop 09/19/16 at 06:59; Status DC Dextrose 25 gm 25 gm STK-MED ONCE IV Last administered on 09/18/16 08:19; Start 09/18/16 at 08:19; Stop 09/18/16 at 08:20; Status DC Propofol (Diprivan) 20 ml @ As Directed STK-MED ONCE IV ; Start 09/18/16 at 11:13 ; Stop 09/18/16 at 11:14; Status DC Lidocaine HCl 5 ml 5 ml STK-MED ONCE .ROUTE ; Start 09/18/16 at 11:13; Stop at 11:14; Status DC Sodium Chloride 1,000 ml @ 100 mls/hr 1X ONCE IV Last administered on 11:29; Start 09/18/16 at 11:30; Stop 09/18/16 at 21:29; Status DC Sodium Chloride (Iv Sodium Chloride 0.9% 1000ml Bag) 1,000 ml @ 1,000 mls/hr Q1H PRN IV hypotension; Start 09/18/16 at 13:47; Stop 09/18/16 at 19:46; Status DC Acetaminophen (Tylenol) 500 mg 1X PRN PRN PO MILD PAIN / TEMP; Start 09/18/16 at 14:00; Stop 09/19/16 at 13:59; Status DC Diphenhydramine HCl (Benadryl) 25 mg 1X PRN PRN IV ITCHING; Start 09/18/16 at 14 :00; Stop 09/19/16 at 13:59; Status DC Diphenhydramine HCl (Benadryl) 25 mg 1X PRN PRN IV ITCHING; Start 09/18/16 at 14 :00; Stop 09/19/16 at 13:59; Status DC Labetalol HCl 10 mg 10 mg PRN Q1HR PRN IVP SBP > 180; Start 09/18/16 at 14:00; Stop 09/19/16 at 13:59; Status DC Sodium Chloride (Iv Sodium Chloride 0.9% 1000ml Bag) 1,000 ml @ 400 mls/hr Q2H30M PRN IV PATENCY; Start 09/18/16 at 13:47; Stop 09/19/16 at 01:46; Status DC Info 1 each 1 each PRN DAILY PRN MC SEE COMMENTS; Start 09/18/16 at 14:00; Status UNV Sodium Chloride 1,000 ml @ 1,000 mls/hr Q1H PRN IV hypotension; Start 09/20/16 at 07:30; Stop 09/20/16 at 18:00; Status DC Albumin Human (Albuminar) 200 ml @ 200 mls/hr 1X PRN PRN IV Hypotension; Start 09/20/16 at 07:45; Stop 09/20/16 at 14:00; Status DC Acetaminophen (Tylenol) 500 mg 1X PRN PRN PO MILD PAIN / TEMP; Start 09/20/16 at 07:45; Stop 09/20/16 at 18:00; Status DC Diphenhydramine HCl (Benadryl) 25 mg 1X PRN PRN IV ITCHING; Start 09/20/16 at 07 :45; Stop 09/20/16 at 18:00; Status DC Diphenhydramine HCl (Benadryl) 25 mg 1X PRN PRN IV ITCHING; Start 09/20/16 at 07 :45; Stop 09/20/16 at 18:00; Status DC Sodium Chloride (Normal Saline Flush) 10 ml 1X PRN PRN IV AP catheter pack; Start 09/20/16 at 07:45; Stop 09/20/16 at 18:00; Status DC Sodium Chloride (Normal Saline Flush) 10 ml 1X PRN PRN IV QUALITY MANAGER catheter pack; Start 09/20/16 at 07:45; Stop 09/20/16 at 18:00; Status DC Labetalol HCl 10 mg 10 mg PRN Q1HR PRN IVP SBP > 180; Start 09/20/16 at 07:45; Stop 09/20/16 at 18:00; Status DC Sodium Chloride (Iv Sodium Chloride 0.9% 1000ml Bag) 1,000 ml @ 400 mls/hr Q2H30M PRN IV PATENCY; Start 09/20/16 at 07:45; Stop 09/20/16 at 18:00; Status DC Info (PHARMACY MONITORING -- do not chart) 1 each PRN DAILY PRN MC SEE COMMENTS ; Start 09/20/16 at 07:45; Status UNV Warfarin Sodium (Coumadin Per Pharmacy) 1 each PRN DAILY PRN MC SEE COMMENTS Last administered on 09/29/16 10:48; Start 09/20/16 at 14:30 Warfarin Sodium (Coumadin) 2 mg 1X WARF ONCE PO Last administered on 09/20/16 17:27; Start 09/20/16 at 17:14; Stop 09/20/16 at 17:15; Status DC Methylprednisolone Acetate (Depo-Medrol 80mg Vial) 80 mg 1X ONCE IM ; Start 09/20/16 at 17:30; Stop 09/20/16 at 17:33; Status DC Methylprednisolone Acetate (Depo-Medrol 40mg Vial) 40 mg 1X ONCE IM ; Start 09/20/16 at 17:30; Stop 09/20/16 at 17:33; Status DC Bupivacaine HCl (Sensorcaine-Mpf 0.25%) 10 ml 1X ONCE IJ ; Start 09/20/16 at 17: 30; Stop 09/20/16 at 17:33; Status DC Warfarin Sodium (Coumadin) 2 mg 1X WARF ONCE PO Last administered on 09/21/16 17:14; Start 09/21/16 at 16:00; Stop 09/21/16 at 16:01; Status DC Warfarin Sodium 3 mg 3 mg 1X WARF ONCE PO Last administered on 09/22/16 17:28 ; Start 09/22/16 at 16:00; Stop 09/22/16 at 16:01; Status DC Sodium Chloride (Iv Sodium Chloride 0.9% 1000ml Bag) 1,000 ml @ 1,000 mls/hr Q1H PRN IV hypotension; Start 09/23/16 at 14:18; Stop 09/23/16 at 21:00; Status DC Sodium Chloride (Normal Saline Flush) 10 ml 1X PRN PRN IV AP catheter pack; Start 09/23/16 at 14:30; Stop 09/23/16 at 21:00; Status DC Sodium Chloride (Normal Saline Flush) 10 ml 1X PRN PRN IV QUALITY MANAGER catheter pack; Start 09/23/16 at 14:30; Stop 09/23/16 at 21:00; Status DC Info (PHARMACY MONITORING -- do not chart) 1 each PRN DAILY PRN MC SEE COMMENTS ; Start 09/23/16 at 14:30; Status UNV Info (PHARMACY MONITORING -- do not chart) 1 each PRN DAILY PRN MC SEE COMMENTS ; Start 09/23/16 at 14:30; Status UNV Warfarin Sodium (Coumadin) 3 mg 1X ONCE PO Last administered on 09/23/16 17:34 ; Start 09/23/16 at 17:00; Stop 09/23/16 at 17:01; Status DC Lidocaine/Sodium Bicarbonate (Buffered Lidocaine 1%) 20 ml STK-MED ONCE IJ ; Start 09/24/16 at 14:59; Stop 09/24/16 at 15:00; Status DC Fentanyl Citrate (Fentanyl 2ml Vial) 100 mcg STK-MED ONCE .ROUTE ; Start at 15:05; Stop 09/24/16 at 15:06; Status DC Midazolam HCl (Versed) 2 mg STK-MED ONCE .ROUTE ; Start 09/24/16 at 15:05; Stop 09/24/16 at 15:06; Status DC Lidocaine/Sodium Bicarbonate (Buffered Lidocaine 1%) 20 ml 1X ONCE IJ Last administered on 09/24/16 16:13; Start 09/24/16 at 16:15; Stop 09/24/16 at 16:16; Status DC Midazolam HCl (Versed) 2 mg 1X ONCE IV Last administered on 09/24/16 16:14; Start 09/24/16 at 16:15; Stop 09/24/16 at 16:16; Status DC Fentanyl Citrate (Fentanyl 2ml Vial) 100 mcg 1X ONCE IV Last administered on 16:15; Start 09/24/16 at 16:15; Stop 09/24/16 at 16:16; Status DC Warfarin Sodium 2 mg 2 mg 1X ONCE PO Last administered on 09/24/16 16:35; Start 09/24/16 at 17:00; Stop 09/24/16 at 17:01; Status DC Sodium Chloride 1,000 ml @ 1,000 mls/hr Q1H PRN IV hypotension; Start 09/25/16 at 08:38; Stop 09/25/16 at 14:37; Status DC Albumin Human (Albuminar) 200 ml @ 200 mls/hr 1X PRN PRN IV Hypotension; Start 09/25/16 at 08:45; Stop 09/25/16 at 14:44; Status DC Acetaminophen (Tylenol) 500 mg 1X PRN PRN PO MILD PAIN / TEMP; Start 09/25/16 at 08:45; Stop 09/26/16 at 08:44; Status DC Diphenhydramine HCl (Benadryl) 25 mg 1X PRN PRN IV ITCHING; Start 09/25/16 at 08 :45; Stop 09/26/16 at 08:44; Status DC Info (PHARMACY MONITORING -- do not chart) 1 each PRN DAILY PRN MC SEE COMMENTS ; Start 09/25/16 at 08:45; Status UNV Vancomycin HCl 1 each 1 each PRN DAILY PRN MC SEE COMMENTS Last administered on 09/29/16 16:15; Start 09/25/16 at 09:15 Piperacillin Sod/ Tazobactam Sod 2.25 gm/Sodium Chloride 50 ml @ 100 mls/hr Q6HRS IV Last administered on 09/30/16 05:52; Start 09/25/16 at 10:00 Vancomycin HCl/ Sodium Chloride (Iv Sodium Chloride 0.9% 500ml Bag) 500 ml @ 250 mls/hr ONCE ONCE IV Last administered on 09/25/16 13:32; Start 09/25/16 at 10:00; Stop 09/25/16 at 11:59; Status DC Warfarin Sodium (Coumadin) 4 mg 1X WARF ONCE PO ; Start 09/25/16 at 16:00; Stop 09/25/16 at 16:00; Status DC Warfarin Sodium 3 mg 3 mg 1X WARF ONCE PO Last administered on 09/25/16 16:00 ; Start 09/25/16 at 16:00; Stop 09/25/16 at 16:01; Status DC Magnesium Sulfate/ Dextrose (Magnesium Sulfate PREMIX 2GM) 50 ml @ 25 mls/hr PRN DAILY PRN IV for Mag < 1.7 on am labs Last administered on 09/28/16 18:18 ; Start 09/26/16 at 11:15 Darbepoetin Ernts (Aranesp) 100 mcg Th SQ Last administered on 09/26/16 20:40; Start 09/26/16 at 21:00 Amlodipine Besylate (Norvasc) 2.5 mg DAILY PO Last administered on 09/26/16 12: 21; Start 09/26/16 at 11:00; Stop 09/26/16 at 14:02; Status DC Amlodipine Besylate (Norvasc) 5 mg DAILY PO Last administered on 09/29/16 08: 45; Start 09/27/16 at 09:00 Warfarin Sodium (Coumadin) 5 mg 1X WARF ONCE PO Last administered on 09/26/16 16:15; Start 09/26/16 at 16:00; Stop 09/26/16 at 16:01; Status DC Vancomycin HCl 1 each 1 each 1X ONCE MC ; Start 09/27/16 at 16:00; Stop at 16:01; Status DC Sodium Chloride 1,000 ml @ 1,000 mls/hr Q1H PRN IV hypotension; Start 09/27/16 at 09:47; Stop 09/27/16 at 15:46; Status DC Albumin Human (Albuminar) 200 ml @ 200 mls/hr 1X PRN PRN IV Hypotension; Start 09/27/16 at 10:00; Stop 09/27/16 at 15:59; Status DC Acetaminophen (Tylenol) 500 mg 1X PRN PRN PO MILD PAIN / TEMP; Start 09/27/16 at 10:00; Stop 09/28/16 at 09:59; Status DC Diphenhydramine HCl (Benadryl) 25 mg 1X PRN PRN IV ITCHING; Start 09/27/16 at 10:00; Stop 09/28/16 at 09:59; Status DC Diphenhydramine HCl (Benadryl) 25 mg 1X PRN PRN IV ITCHING; Start 09/27/16 at 10:00; Stop 09/28/16 at 09:59; Status DC Labetalol HCl 10 mg 10 mg PRN Q1HR PRN IVP SBP > 180; Start 09/27/16 at 10:00; Stop 09/28/16 at 09:59; Status DC Sodium Chloride (Iv Sodium Chloride 0.9% 1000ml Bag) 1,000 ml @ 400 mls/hr Q2H30M PRN IV PATENCY; Start 09/27/16 at 09:47; Stop 09/27/16 at 21:46; Status DC Info (PHARMACY MONITORING -- do not chart) 1 each PRN DAILY PRN MC SEE COMMENTS ; Start 09/27/16 at 10:00; Status UNV Warfarin Sodium 5 mg 5 mg 1X WARF ONCE PO Last administered on 09/27/16 17:11 ; Start 09/27/16 at 16:00; Stop 09/27/16 at 16:01; Status DC Vancomycin HCl/ Sodium Chloride (Iv Sodium Chloride 0.9% 250ml) 250 ml @ 250 mls/hr ONCE ONCE IV Last administered on 09/27/16 21:15; Start 09/27/16 at 20 :10; Stop 09/27/16 at 21:09; Status DC Potassium Chloride (Klor-Con) 40 meq 1X ONCE PO Last administered on 12:04; Start 09/28/16 at 12:30; Stop 09/28/16 at 12:31; Status DC Warfarin Sodium (Coumadin) 4 mg 1X WARF ONCE PO Last administered on 15:32; Start 09/28/16 at 16:00; Stop 09/28/16 at 16:01; Status DC Warfarin Sodium 4 mg 4 mg 1X WARF ONCE PO Last administered on 09/29/16 17:06 ; Start 09/29/16 at 16:00; Stop 09/29/16 at 16:01; Status DC Vancomycin HCl 500 mg/Sodium Chloride 100 ml @ 100 mls/hr QMWF IV ; Start 09/30 at 16:00 Sodium Chloride (Iv Sodium Chloride 0.9% 1000ml Bag) 1,000 ml @ 1,000 mls/hr Q1H PRN IV hypotension; Start 09/30/16 at 08:00; Stop 09/30/16 at 13:59 Acetaminophen (Tylenol) 500 mg 1X PRN PRN PO MILD PAIN / TEMP; Start 09/30/16 at 09:00; Stop 10/01/16 at 08:59 Diphenhydramine HCl (Benadryl) 25 mg 1X PRN PRN IV ITCHING; Start 09/30/16 at 09:00; Stop 10/01/16 at 08:59 Diphenhydramine HCl 25 mg 25 mg 1X PRN PRN IV ITCHING; Start 09/30/16 at 09:00 ; Stop 10/01/16 at 08:59 Sodium Chloride (Iv Sodium Chloride 0.9% 1000ml Bag) 1,000 ml @ 400 mls/hr Q2H30M PRN IV PATENCY; Start 09/30/16 at 08:00; Stop 09/30/16 at 19:59 Info (PHARMACY MONITORING -- do not chart) 1 each PRN DAILY PRN MC SEE COMMENTS ; Start 09/30/16 at 09:00 Active Scripts Active Reported [Mylanta] Tylenol (Acetaminophen) 325 Mg Tablet 1 Tab PO PRN Q4HRS Fleet Enema (Na Phos,M-B/Na Phos,Di-Ba) 133 Ml Enema 1 Each RC ONCE Dulcolax (Bisacodyl) 10 Mg Supp.rect 10 Mg RC PRN DAILY PRN Zofran Odt (Ondansetron) 8 Mg Tab.rapdis 1 Tab PO PRN Q8HRS PRN Nitrostat (Nitroglycerin) 0.4 Mg Tab.subl 1 Tab SL UD Cyclobenzaprine Hcl 10 Mg Tablet 1 Tab PO TID Zepatier 50-100 mg Tablet (Elbasvir/Grazoprevir) 1 Each Tablet 1 Each PO [PhosLo] Coreg (Carvedilol) 25 Mg Tablet 1 Tab PO BID Aspirin 81 Mg Tab.chew 1 Tab PO DAILY Allopurinol 100 Mg Tablet 1 Tab PO DAILY Ventolin Hfa Inhaler (Albuterol Sulfate) 18 Gm Hfa.aer.ad 2 Puff INH Q4HRS Nephplex Rx Tablet (Vit B Cmplx No3/Fa/C/Biot/Zinc) 1 Each Tablet 1 Each PO Senokot (Sennosides) 8.6 Mg Tablet 1 Tab PO BID Oxycontin (Oxycodone HCl) 10 Mg Tab.er.12h 10 Mg PO BID Glycolax (Polyethylene Glycol 3350) 119 Gm Powder 17 Gm PO UD Percocet 10-325 Mg Tablet (Oxycodone/Acetaminophen) 1 Each Tablet 1 Tab PO Q4- 6HRS Vitamin D3 (Cholecalciferol (Vitamin D3)) 1,000 Unit Tablet 1 Tab PO DAILY Advair 250-50 Diskus (Fluticasone/Salmeterol) 1 Each Disk.w.dev 1 Puff IH BID Ipratropium Elizabeth 0.2 Mg/1 Ml Solution 1 Vial NEB QID Lidoderm (Lidocaine) 700 Mg Adh..patch 1 Patch TP DAILY Nortriptyline Hcl 25 Mg Capsule 1 Cap PO QHS Ciprofloxacin Hcl 250 Mg Tablet 1 Tab PO BID Warfarin Sodium 2 Mg Tablet 1.5 Mg PO DAILY Gabapentin 300 Mg Capsule 300 Mg PO TID Zoloft (Sertraline Hcl) 100 Mg Tablet 1 Tab PO DAILY Vitals/I & O Vital Sign - Last 24 Hours 09/29/16 09/29/16 09/29/16 09/29/16 11:00 11:02 14:50 15:05 Temp 97.8 99.9 97.8 99.9 Pulse 77 81 Resp 18 18 B/P 136/72 155/71 Pulse Ox 98 98 O2 Delivery Room Air Room Air Room Air Room Air 09/29/16 09/29/16 09/29/16 09/29/16 17:06 19:00 19:28 19:29 Temp 97.3 97.3 Pulse 81 75 Resp 20 B/P 155/71 128/76 Pulse Ox 99 O2 Delivery Room Air Room Air Room Air 09/29/16 09/29/16 09/29/16 09/30/16 20:00 21:20 23:00 01:20 Temp 98.3 98.3 Pulse 83 Resp 20 20 20 B/P 165/82 Pulse Ox 99 94 93 O2 Delivery Room Air Room Air Room Air Room Air 09/30/16 09/30/16 09/30/16 09/30/16 03:00 04:35 05:35 07:00 Temp 97.6 97.7 97.6 97.7 Pulse 87 94 Resp 20 20 20 B/P 175/93 161/92 Pulse Ox 93 93 95 92 O2 Delivery Room Air Room Air Room Air Room Air 09/30/16 09/30/16 07:23 07:33 Pulse Ox 91 O2 Delivery Room Air Room Air O2 Flow Rate 97.0 Intake and Output 09/29/16 09/29/16 09/30/16 15:00 23:00 07:00 Intake Total 360 ml 120 ml 950 ml Output Total 450 ml Balance 360 ml 120 ml 500 ml CAROLANN PRUETT MD Sep 30, 2016 10:15
--- NOTE | 2016-09-30 11:40 | PDOC ---
Infectious Disease Note Subjective Subjective Mild lower back pain Denies leg pain, weakness but has some right thigh numbness Some left knee pain s/p steroid injection about a week ago ROS ROS GEN: Denies fevers, chills, sweats HEENT: Denies blurred vision, sore throat CV: Denies chest pain RESP: Denies shortness of air, cough GI: Denies n/v/d NEURO: Denies confusion, dizziness MSK: Denies weakness, joint pain/swelling Vital Sign Vital Signs Vital Signs Date Time Temp Pulse Resp B/P Pulse Ox O2 Delivery O2 Flow Rate FiO2 09/30/16 11:33 Room Air 09/30/16 07:33 91 09/30/16 07:23 97.0 09/30/16 07:00 97.7 94 161/92 97.7 09/30/16 05:35 20 Physical Exam PHYSICAL EXAM GENERAL: NAD, Alert, in HD HEENT: PERRL, OC/OP clear NECK: Supple, no JVD, no LN LUNGS: Clear HEART: S1S2, no gallop, no murmur ABD: Soft, NT, BS present EXT: No edema, no cyanosis. LUE fistula, bruising Right thigh benign appearance [employer]: Alert, oriented x 3, no focal neurologic deficit SKIN: No rash. Tattoo HDC clean Labs Lab Laboratory Tests Test 09/29/16 15:27 09/29/16 20:45 09/30/16 05:30 09/30/16 05:50 Glucose (Fingerstick) 113mg/dL (70-99) 137mg/dL (70-99) Prothrombin Time 22.4SEC (11.7-14.0) Prothromb Time International Ratio 2.1 (0.8-1.1) Sodium Level 138mmol/L (136-145) Potassium Level 3.8mmol/L (3.5-5.1) Chloride Level 102mmol/L (98-107) Carbon Dioxide Level 26mmol/L (21-32) Anion Gap 10 (6-14) Blood Urea Nitrogen 24mg/dL (7-20) Creatinine 3.7mg/dL (0.6-1.0) Estimated GFR (Cockcroft-Gault) 15.1 Glucose Level 108mg/dL (70-99) Calcium Level 8.3mg/dL (8.5-10.1) Phosphorus Level 2.4mg/dL (2.6-4.7) Magnesium Level 2.1mg/dL (1.8-2.4) Albumin 1.7g/dL (3.4-5.0) Objective Assessment ? Diskitis L 1-2, chronic back pain, had back surgery last year. sed rate 92 09/23 -s/p aspiration & biopsy. 09/24. CX NGTD GI bleed ESRD on HD HTN Plan Plan of Care Cont vanc and Zosyn CX NGTD AV fistula OK to use per Vascular - would d/c HD cath if not needed Will await Neurosurgery recs re thigh numbness on right adn MRI interpretation. Options include no abx and repeat MRI in 1 to 2 mos or empiric trial Vanc/ Gent for 5 more weeks with HD BOUCHRA ZABALA MD Sep 30, 2016 11:40
--- NOTE | 2016-09-30 11:45 | PDOC ---
Renal-Progress Notes Subjective Notes Notes NONE History of Present Illness Hx of present illness STABLE Vitals Vitals Vital Signs Date Time Temp Pulse Resp B/P Pulse Ox O2 Delivery O2 Flow Rate FiO2 09/30/16 11:33 Room Air 09/30/16 07:33 91 09/30/16 07:23 97.0 09/30/16 07:00 97.7 94 161/92 97.7 09/30/16 05:35 20 Weight Weight [ ] I.O. Intake and Output Intake and Output 09/30/16 07:00 Intake Total 1430 ml Output Total 450 ml Balance 980 ml Intake Oral 1430 ml Output Urine Total 450 ml # Voids 1 # Bowel Movements 1 Labs Labs Laboratory Tests Test 09/29/16 15:27 09/29/16 20:45 09/30/16 05:30 09/30/16 05:50 Glucose (Fingerstick) 113mg/dL (70-99) 137mg/dL (70-99) Prothrombin Time 22.4SEC (11.7-14.0) Prothromb Time International Ratio 2.1 (0.8-1.1) Sodium Level 138mmol/L (136-145) Potassium Level 3.8mmol/L (3.5-5.1) Chloride Level 102mmol/L (98-107) Carbon Dioxide Level 26mmol/L (21-32) Anion Gap 10 (6-14) Blood Urea Nitrogen 24mg/dL (7-20) Creatinine 3.7mg/dL (0.6-1.0) Estimated GFR (Cockcroft-Gault) 15.1 Glucose Level 108mg/dL (70-99) Calcium Level 8.3mg/dL (8.5-10.1) Phosphorus Level 2.4mg/dL (2.6-4.7) Magnesium Level 2.1mg/dL (1.8-2.4) Albumin 1.7g/dL (3.4-5.0) Micro Micro Microbiology 09/24/16 Blood Culture - Final, Complete NO GROWTH AFTER 5 DAYS 09/24/16 Anaerobic/Aerobic Culture - Preliminary, Resulted 09/24/16 Anaerobic Culture Result 1 (CONNOR) - Preliminary, Resulted 09/24/16 Aerobic Culture - Final, Resulted 09/24/16 Aerobic Culture Result 1 (CONNOR) - Final, Resulted Review of Systems Constitutional: yes: alert, oriented, weakness Ears/Nose/Throat: Yes: no symptom reported Gastrointestional: Yes: melena Genitourinary: Yes: no symptom reported Skin: Yes no symptom reported Physical Exam General Appearance: no apparent distress Skin: warm Respiratory: bilateral CTA Heart: S1S2 Abdomen: soft, bowel sounds present Extremities: pulses present Neurology: alert, oriented Assessment Assessment IMP ANEMIA GI BLEED ESRD GASTRITIS RIGHT RENAL CYST-COMPLICATED PLAN HD TODAY UF TO DW WILL NEED OP F/U OF RENAL CYST IN ABOUT 6 MONTHS SERVANDO PATTERSON MD Sep 30, 2016 11:44
[2016-09-30] MEDS: SERTRALINE 50 MG TABLET. PO SCH (12:56)
[2016-09-30] MEDS: OXYCODONE ER 10 MG TAB.ER.12H. PO SCH ×2 (12:57→20:36)
[2016-09-30] MEDS: AMLODIPINE BESYLATE 5 MG TABLET PO SCH (12:57)
[2016-09-30] MEDS: GABAPENTIN 300 MG CAPSULE. PO SCH (12:57)
[2016-09-30] MEDS: CARVEDILOL 12.5 MG TABLET PO SCH ×2 (12:58→17:12)
[2016-09-30 14:52] VITALS: BP 198/88
[2016-09-30] MEDS: VANCOMYCIN 500 MG in IV NORMAL SALINE 100ML 100 ML IV SCH (15:47)
[2016-09-30] MEDS: VANCOMYCIN PER PHARMACY MC PRN (15:58)
[2016-09-30] MEDS ORDERED: WARFARIN 4 MG TABLET. PO ONE (16:00)
[2016-09-30 19:00] VITALS: BP 151/88
[2016-09-30] MEDS: NORTRIPTYLINE 25 MG CAPSULE PO SCH (20:36)
[2016-09-30 23:00] VITALS: BP 164/82
[2016-10-01] MEDS: PIPERACILLIN/TAZOBACTAM 2.25 GM in IV NORMAL SALINE 50ML 50 ML IV SCH ×4 (00:10→19:20)
[2016-10-01] MEDS: CYCLOBENZAPRINE 10 MG TABLET. PO PRN (00:14)
[2016-10-01 03:00] VITALS: BP 164/81
[2016-10-01] MEDS: OXYCODONE/APAP 10/325 TABLET. PO PRN ×3 (03:15→17:12)
[2016-10-01 04:43] LABS: BASO % 0 % (0-3); EOS % 2 % (0-3); HEMATOCRIT 22.6 % (36.0-47.0); HEMOGLOBIN 7.3 g/dL (12.0-15.5); LYMPH # 1.9 x10^3/uL (1.0-4.8); LYMPH % 19 % (24-48); MEAN CORPUSCULAR HEMOGLOBIN 28 pg (25-35); MEAN CORPUSCULAR HGB CONC 32 g/dL (31-37); MEAN CORPUSCULAR VOLUME 86 fL (79-100); MONO % 9 % (0-9); NEUT % 69 % (31-73); PLATELET COUNT 236 x10^3/uL (140-400); RED BLOOD COUNT 2.61 x10^6/uL (3.50-5.40); RED CELL DISTRIBUTION WIDTH 18.2 % (11.5-14.5); WHITE BLOOD COUNT 9.8 x10^3/uL (4.0-11.0)
[2016-10-01 04:51] LABS: INR 2.2 (0.8-1.1); PROTHROMBIN TIME PATIENT 23.3 SEC (11.7-14.0)
[2016-10-01 04:59] LABS: ALBUMIN 1.7 g/dL (3.4-5.0); CALCIUM 8.4 mg/dL (8.5-10.1); CREATININE 2.5 mg/dL (0.6-1.0); GFR 23.8; POTASSIUM 3.5 mmol/L (3.5-5.1)
[2016-10-01] MEDS: ONDANSETRON ODT 4 MG TAB.RAPDIS PO SCH ×3 (05:47→20:21)
[2016-10-01 07:00] VITALS: BP 175/72
[2016-10-01] MEDS: PANTOPRAZOLE 40 MG TABLET. PO SCH (07:30)
[2016-10-01] MEDS: BUDESONIDE 0.5 MG/2 ML NEBU NEB SCH ×2 (07:37→20:36)
[2016-10-01] MEDS: IPRATRPIUM/ALBUTEROL 0.5/2.5MG 3 ML NEBU. NEB SCH ×4 (07:37→20:36)
[2016-10-01] MEDS: CARVEDILOL 12.5 MG TABLET PO SCH ×2 (08:00→17:13)
[2016-10-01] MEDS: LIDOCAINE (700MG/PATCH) PATCH. TP SCH (08:16)
[2016-10-01] MEDS: ALLOPURINOL 100 MG TABLET. PO SCH (08:16)
[2016-10-01] MEDS: AMLODIPINE BESYLATE 5 MG TABLET PO SCH (08:16)
[2016-10-01] MEDS: SERTRALINE 50 MG TABLET. PO SCH (08:16)
[2016-10-01] MEDS: OXYCODONE ER 10 MG TAB.ER.12H. PO SCH ×2 (08:16→20:22)
[2016-10-01] MEDS: GABAPENTIN 300 MG CAPSULE. PO SCH (08:16)
--- NOTE | 2016-10-01 10:07 | PDOC ---
Infectious Disease Note Subjective Subjective Mild lower back pain - better with brace. Was able to move to chair Denies leg pain, weakness but has some right thigh numbness ROS ROS GEN: Denies fevers, chills, sweats HEENT: Denies blurred vision, sore throat CV: Denies chest pain RESP: Denies shortness of air, cough GI: Denies n/v/d NEURO: Denies confusion, dizziness MSK: Denies weakness, joint pain/swelling Vital Sign Vital Signs Vital Signs Date Time Temp Pulse Resp B/P Pulse Ox O2 Delivery O2 Flow Rate FiO2 10/01/16 08:16 85 175/72 10/01/16 08:16 Room Air 10/01/16 08:15 97.0 10/01/16 07:39 96 10/01/16 07:00 97.7 18 97.7 Physical Exam PHYSICAL EXAM GENERAL: NAD, Alert, in chair HEENT: PERRL, OC/OP clear NECK: Supple, no JVD, no LN LUNGS: Clear HEART: S1S2, no gallop, no murmur ABD: Soft, NT, BS present, brace on EXT: No edema, no cyanosis. 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 Tattoo HDC clean Labs Lab Laboratory Tests Test 09/30/16 16:03 09/30/16 20:39 10/01/16 03:25 10/01/16 07:16 Glucose (Fingerstick) 91mg/dL (70-99) 117mg/dL (70-99) 108mg/dL (70-99) White Blood Count 9.8x10^3/uL (4.0-11.0) Red Blood Count 2.61x10^6/uL (3.50-5.40) Hemoglobin 7.3g/dL (12.0-15.5) Hematocrit 22.6% (36.0-47.0) Mean Corpuscular Volume 86fL (79-100) Mean Corpuscular Hemoglobin 28pg (25-35) Mean Corpuscular Hemoglobin Concent 32g/dL (31-37) Red Cell Distribution Width 18.2% (11.5-14.5) Platelet Count 236x10^3/uL (140-400) Neutrophils (%) (Auto) 69% (31-73) Lymphocytes (%) (Auto) 19% (24-48) Monocytes (%) (Auto) 9% (0-9) Eosinophils (%) (Auto) 2% (0-3) Basophils (%) (Auto) 0% (0-3) Neutrophils # (Auto) 6.8x10^3uL (1.8-7.7) Lymphocytes # (Auto) 1.9x10^3/uL (1.0-4.8) Monocytes # (Auto) 0.9x10^3/uL (0.0-1.1) Eosinophils # (Auto) 0.2x10^3/uL (0.0-0.7) Basophils # (Auto) 0.0x10^3/uL (0.0-0.2) Prothrombin Time 23.3SEC (11.7-14.0) Prothromb Time International Ratio 2.2 (0.8-1.1) Sodium Level 138mmol/L (136-145) Potassium Level 3.5mmol/L (3.5-5.1) Chloride Level 101mmol/L (98-107) Carbon Dioxide Level 29mmol/L (21-32) Anion Gap 8 (6-14) Blood Urea Nitrogen 14mg/dL (7-20) Creatinine 2.5mg/dL (0.6-1.0) Estimated GFR (Cockcroft-Gault) 23.8 Glucose Level 125mg/dL (70-99) Calcium Level 8.4mg/dL (8.5-10.1) Phosphorus Level 2.0mg/dL (2.6-4.7) Magnesium Level 1.8mg/dL (1.8-2.4) Albumin 1.7g/dL (3.4-5.0) Objective Assessment ? Diskitis L 1-2, chronic back pain, had back surgery last year. sed rate 92 09/23. Stable and more mobile some -s/p aspiration & biopsy. 09/24. CX NGTD however, AFB/Fungal apparently not collected GI bleed ESRD on HD HTN Plan Plan of Care Cont vanc and Zosyn CX NGTD AV fistula OK to use per Vascular - would d/c HD cath if not needed Will await Neurosurgery recs re thigh numbness on right and MRI interpretation. Options include no abx and repeat MRI in 1 to 2 mos or empiric trial Vanc/ Gent for 5 more weeks with HD May need reaspiration it no improvement given lack of AFB/Fungal BOUCHRA ZABALA MD Oct 01, 2016 10:07
--- NOTE | 2016-10-01 10:17 | PDOC ---
PROGRESS NOTES Subjective Subjective No new complaints. 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 Assessment Assessment Problems Medical Problems: (1) Anemia Status: Acute (2) Coagulopathy Status: Acute (3) Coumadin toxicity Status: Acute (4) Elevated INR (international normalized ratio) due to prior anticoagulant medication ingestion Status: Acute (5) ESRD on dialysis Status: Acute (6) GI bleed Status: Acute Plan Plan of Care To SNF when medically stable. Comment Review of Relevant I have reviewed the following items christi (where applicable) has been applied. Labs Laboratory Tests Test 09/29/16 10:28 09/29/16 15:27 09/29/16 20:45 09/30/16 05:30 Glucose (Fingerstick) 109mg/dL (70-99) 113mg/dL (70-99) 137mg/dL (70-99) Prothrombin Time 22.4SEC (11.7-14.0) Prothromb Time International Ratio 2.1 (0.8-1.1) Test 09/30/16 05:50 09/30/16 07:17 09/30/16 16:03 09/30/16 20:39 Sodium Level 138mmol/L (136-145) Potassium Level 3.8mmol/L (3.5-5.1) Chloride Level 102mmol/L (98-107) Carbon Dioxide Level 26mmol/L (21-32) Anion Gap 10 (6-14) Blood Urea Nitrogen 24mg/dL (7-20) Creatinine 3.7mg/dL (0.6-1.0) Estimated GFR (Cockcroft-Gault) 15.1 Glucose Level 108mg/dL (70-99) Calcium Level 8.3mg/dL (8.5-10.1) Phosphorus Level 2.4mg/dL (2.6-4.7) Magnesium Level 2.1mg/dL (1.8-2.4) Albumin 1.7g/dL (3.4-5.0) Glucose (Fingerstick) 103mg/dL (70-99) 91mg/dL (70-99) 117mg/dL (70-99) Test 10/01/16 03:25 10/01/16 07:16 White Blood Count 9.8x10^3/uL (4.0-11.0) Red Blood Count 2.61x10^6/uL (3.50-5.40) Hemoglobin 7.3g/dL (12.0-15.5) Hematocrit 22.6% (36.0-47.0) Mean Corpuscular Volume 86fL (79-100) Mean Corpuscular Hemoglobin 28pg (25-35) Mean Corpuscular Hemoglobin Concent 32g/dL (31-37) Red Cell Distribution Width 18.2% (11.5-14.5) Platelet Count 236x10^3/uL (140-400) Neutrophils (%) (Auto) 69% (31-73) Lymphocytes (%) (Auto) 19% (24-48) Monocytes (%) (Auto) 9% (0-9) Eosinophils (%) (Auto) 2% (0-3) Basophils (%) (Auto) 0% (0-3) Neutrophils # (Auto) 6.8x10^3uL (1.8-7.7) Lymphocytes # (Auto) 1.9x10^3/uL (1.0-4.8) Monocytes # (Auto) 0.9x10^3/uL (0.0-1.1) Eosinophils # (Auto) 0.2x10^3/uL (0.0-0.7) Basophils # (Auto) 0.0x10^3/uL (0.0-0.2) Prothrombin Time 23.3SEC (11.7-14.0) Prothromb Time International Ratio 2.2 (0.8-1.1) Sodium Level 138mmol/L (136-145) Potassium Level 3.5mmol/L (3.5-5.1) Chloride Level 101mmol/L (98-107) Carbon Dioxide Level 29mmol/L (21-32) Anion Gap 8 (6-14) Blood Urea Nitrogen 14mg/dL (7-20) Creatinine 2.5mg/dL (0.6-1.0) Estimated GFR (Cockcroft-Gault) 23.8 Glucose Level 125mg/dL (70-99) Calcium Level 8.4mg/dL (8.5-10.1) Phosphorus Level 2.0mg/dL (2.6-4.7) Magnesium Level 1.8mg/dL (1.8-2.4) Albumin 1.7g/dL (3.4-5.0) Glucose (Fingerstick) 108mg/dL (70-99) Laboratory Tests Test 09/30/16 16:03 09/30/16 20:39 10/01/16 03:25 10/01/16 07:16 Glucose (Fingerstick) 91mg/dL (70-99) 117mg/dL (70-99) 108mg/dL (70-99) White Blood Count 9.8x10^3/uL (4.0-11.0) Red Blood Count 2.61x10^6/uL (3.50-5.40) Hemoglobin 7.3g/dL (12.0-15.5) Hematocrit 22.6% (36.0-47.0) Mean Corpuscular Volume 86fL (79-100) Mean Corpuscular Hemoglobin 28pg (25-35) Mean Corpuscular Hemoglobin Concent 32g/dL (31-37) Red Cell Distribution Width 18.2% (11.5-14.5) Platelet Count 236x10^3/uL (140-400) Neutrophils (%) (Auto) 69% (31-73) Lymphocytes (%) (Auto) 19% (24-48) Monocytes (%) (Auto) 9% (0-9) Eosinophils (%) (Auto) 2% (0-3) Basophils (%) (Auto) 0% (0-3) Neutrophils # (Auto) 6.8x10^3uL (1.8-7.7) Lymphocytes # (Auto) 1.9x10^3/uL (1.0-4.8) Monocytes # (Auto) 0.9x10^3/uL (0.0-1.1) Eosinophils # (Auto) 0.2x10^3/uL (0.0-0.7) Basophils # (Auto) 0.0x10^3/uL (0.0-0.2) Prothrombin Time 23.3SEC (11.7-14.0) Prothromb Time International Ratio 2.2 (0.8-1.1) Sodium Level 138mmol/L (136-145) Potassium Level 3.5mmol/L (3.5-5.1) Chloride Level 101mmol/L (98-107) Carbon Dioxide Level 29mmol/L (21-32) Anion Gap 8 (6-14) Blood Urea Nitrogen 14mg/dL (7-20) Creatinine 2.5mg/dL (0.6-1.0) Estimated GFR (Cockcroft-Gault) 23.8 Glucose Level 125mg/dL (70-99) Calcium Level 8.4mg/dL (8.5-10.1) Phosphorus Level 2.0mg/dL (2.6-4.7) Magnesium Level 1.8mg/dL (1.8-2.4) Albumin 1.7g/dL (3.4-5.0) Microbiology 09/24/16 Blood Culture - Final, Complete NO GROWTH AFTER 5 DAYS 09/24/16 Anaerobic/Aerobic Culture - Final, Complete 09/24/16 Anaerobic Culture Result 1 (CONNOR) - Final, Complete 09/24/16 Aerobic Culture - Final, Complete 09/24/16 Aerobic Culture Result 1 (CONNOR) - Final, Complete Medications Current Medications Oxycodone/ Acetaminophen (Percocet 5/325) 1 tab 1X ONCE PO ; Start 09/09/16 at 19:00; Stop 09/09/16 at 19:01; Status DC Hydromorphone HCl 1 mg 1 mg 1X ONCE IV Last administered on 09/09/16t 19:21; Start 09/09/16 at 19:15; Stop 09/09/16 at 19:16; Status DC Pantoprazole Sodium/Sodium Chloride (Protonix Iv/Iv Sodium Chloride 0.9% 100ml) 100 ml @ 10 mls/hr 1X ONCE IV Last administered on 09/09/16 19:51; Start at 19:30; Stop 09/10/16 at 05:29; Status DC Ondansetron HCl 4 mg 4 mg PRN Q8HRS PRN IV NAUSEA/VOMITING Last administered on 09/09/16 19:51; Start 09/09/16 at 19:30; Stop 09/10/16 at 19:29; Status DC Sodium Chloride (Iv Sodium Chloride 0.9% 1000ml Bag) 1,000 ml @ 100 mls/hr Q10H IV Last administered on 09/09/16 19:51; Start 09/09/16 at 19:30; Stop at 06:00; Status DC Acetaminophen (Tylenol) 650 mg PRN Q4HRS PRN PO FEVER Last administered on 09/09 19:52; Start 09/09/16 at 19:30; Stop 09/10/16 at 19:29; Status DC Multi-Ingredient Mouthwash/Gargle 15 ml 15 ml 1X ONCE SWSW Last administered on 09/09/16 23:41; Start 09/09/16 at 23:30; Stop 09/09/16 at 23:31; Status DC Phytonadione/ Sodium Chloride (Vitamin K/Iv Sodium Chloride 0.9% 50ml) 51 ml @ 102 mls/hr 1X ONCE IV Last administered on 09/10/16 02:07; Start 09/10/16 at 00:00; Stop 09/10/16 at 00:29; Status DC Acetaminophen (Tylenol) 325 mg PRN Q4HRS PO ; Start 09/09/16 at 23:30; Stop at 23:30; Status DC Allopurinol (Zyloprim) 100 mg DAILY PO Last administered on 10/01/16 08:16; Start 09/10/16 at 09:00 Bisacodyl (Dulcolax Supp) 10 mg PRN DAILY PRN RC CONSTIPATION; Start 09/09/16 at 23:30 Cyclobenzaprine HCl (Flexeril) 10 mg PRN TID PRN PO back pain Last administered on 10/01/16 00:14; Start 09/09/16 at 23:30 Gabapentin (Neurontin) 300 mg DAILY PO Last administered on 10/01/16 08:16; Start 09/10/16 at 09:00 Ipratropium [place] (Atrovent) 0.2 mg QID NEB ; Start 09/10/16 at 09:00; Status UNV Lidocaine (Lidoderm) 1 patch DAILY TP Last administered on 10/01/16 08:16; Start 09/10/16 at 09:00 Nortriptyline HCl (Pamelor) 25 mg QHS PO Last administered on 09/30/16 20:36; Start 09/10/16 at 21:00 Oxycodone HCl (Oxycontin) 10 mg BID PO Last administered on 10/01/16 08:16; Start 09/10/16 at 09:00 Oxycodone/ Acetaminophen (Percocet 10/325) 1 tab PRN Q4HRS PRN PO SEVERE PAIN Last administered on 10/01/16 03:15; Start 09/09/16 at 23:30 Non-Formulary Medication 2 puff Q4HRS INH FOR ASTHMA; Start 09/10/16 at 00:00; Status UNV Carvedilol (Coreg) 25 mg BIDWMEALS PO Last administered on 10/01/16 08:00; Start 09/10/16 at 08:00 Non-Formulary Medication 1 puff BID IH ; Start 09/10/16 at 09:00; Status UNV Ondansetron HCl (Zofran Odt) 8 mg Q8HRS PO Last administered on 09/30/16 05:52 ; Start 09/10/16 at 06:00 Sertraline HCl (Zoloft) 100 mg DAILY PO Last administered on 10/01/16 08:16; Start 09/10/16 at 09:00 Labetalol HCl (Normodyne) 20 mg PRN Q2HR PRN IVP HYPERTENSION, SEE COMMENTS Last administered on 09/25/16 05:47; Start 09/09/16 at 23:30 Albuterol/ Ipratropium (Duoneb) 3 ml RTQID NEB Last administered on 10/01/16 07:37; Start 09/10/16 at 08:00 Budesonide (Pulmicort) 0.5 mg RTBID NEB Last administered on 10/01/16 07:37; Start 09/10/16 at 08:00 Albuterol Sulfate 2.5 mg 2.5 mg PRN Q4HRS PRN NEB SHORTNESS OF BREATH Last administered on 10/01/16 04:46; Start 09/09/16 at 23:30 Pantoprazole Sodium 80 mg/ Sodium Chloride 100 ml @ 10 mls/hr Q10H IV Last administered on 09/13/16 07:51; Start 09/10/16 at 10:00; Stop 09/13/16 at 09:59 ; Status DC Magnesium Sulfate/ Dextrose 50 ml @ 25 mls/hr PRN DAILY PRN IV for Mag < 1.7 on am labs; Start 09/10/16 at 10:00; Stop 09/22/16 at 11:36; Status DC Sodium Chloride (Iv Sodium Chloride 0.9% 1000ml Bag) 1,000 ml @ 1,000 mls/hr Q1H PRN IV hypotension; Start 09/11/16 at 08:50; Stop 09/11/16 at 14:49; Status DC Diphenhydramine HCl (Benadryl) 25 mg 1X PRN PRN IV ITCHING; Start 09/11/16 at 09:00; Stop 09/12/16 at 08:59; Status DC Diphenhydramine HCl (Benadryl) 25 mg 1X PRN PRN IV ITCHING; Start 09/11/16 at 09:00; Stop 09/12/16 at 08:59; Status DC Sodium Chloride (Normal Saline Flush) 10 ml 1X PRN PRN IV AP catheter pack; Start 09/11/16 at 09:00; Stop 09/12/16 at 08:59; Status DC Sodium Chloride (Normal Saline Flush) 10 ml 1X PRN PRN IV HEAD START DIRECTOR catheter pack; Start 09/11/16 at 09:00; Stop 09/12/16 at 08:59; Status DC Labetalol HCl 10 mg 10 mg PRN Q1HR PRN IVP SBP > 180; Start 09/11/16 at 09:00; Stop 09/12/16 at 08:59; Status DC Sodium Chloride (Iv Sodium Chloride 0.9% 1000ml Bag) 1,000 ml @ 400 mls/hr Q2H30M PRN IV PATENCY; Start 09/11/16 at 08:50; Stop 09/11/16 at 20:49; Status DC Info (PHARMACY MONITORING -- do not chart) 1 each PRN DAILY PRN MC SEE COMMENTS ; Start 09/11/16 at 09:00; Stop 09/30/16 at 14:09; Status DC Info (PHARMACY MONITORING -- do not chart) 1 each PRN DAILY PRN MC SEE COMMENTS ; Start 09/11/16 at 09:00; Status UNV Sodium Cl/Sod Bicarb/Potass Cl/ PEG (Golytely) 4,000 ml 1X ONCE PO Last administered on 09/11/16t 17:13; Start 09/11/16 at 13:00; Stop 09/11/16 at 13:01 ; Status DC Fentanyl Citrate (Fentanyl 2ml Vial) 25 mcg PRN Q5MIN PRN IV MILD PAIN; Start 09/12/16 at 07:00; Stop 09/13/16 at 06:59; Status DC Fentanyl Citrate 50 mcg 50 mcg PRN Q5MIN PRN IV MODERATE PAIN; Start 09/12/16 at 07:00; Stop 09/13/16 at 06:59; Status DC Lactated Ringer's (Iv Lactated Ringers) 1,000 ml @ 0 mls/hr Q0M IV ; Start at 07:00; Stop 09/12/16 at 18:59; Status DC Lidocaine HCl 2 ml 1X PRN PRN ID IV START; Start 09/12/16 at 07:00; Stop at 06:59; Status DC Prochlorperazine Edisylate (Compazine) 5 mg PACU PRN PRN IV NAUSEA; Start 09/12 at 07:00; Stop 09/13/16 at 06:59; Status DC Pantoprazole Sodium 40 mg 40 mg DAILYAC IVP ; Start 09/13/16 at 07:30; Status UNV Magnesium Sulfate/ Dextrose 50 ml @ 25 mls/hr 1X ONCE IV ; Start 09/12/16 at 11 :30; Stop 09/12/16 at 13:29; Status DC Propofol 0 ml @ As Directed STK-MED ONCE IV ; Start 09/12/16 at 12:55; Stop at 12:56; Status DC Propofol (Diprivan) 20 ml @ As Directed STK-MED ONCE IV ; Start 09/12/16 at 12: 55; Stop 09/12/16 at 12:56; Status Cancel Lidocaine HCl (Lidocaine Pf 2% Vial) 5 ml STFirebase-MED ONCE .ROUTE ; Start 09/12/16 at 12:55; Stop 09/12/16 at 12:56; Status DC Lorazepam (Ativan) 2 mg PRN Q4HRS PRN IV ANXIETY / AGITATION Last administered on 09/26/16t 03:00; Start 09/12/16 at 14:15 Lorazepam (Ativan) 2 mg Q4HRS PRN IV ANXIETY / AGITATION; Start 09/12/16 at 14: 15; Status UNV Haloperidol Lactate (Haldol) 2.5 mg PRN Q6HRS PRN IM AGITATION; Start 09/12/16 at 14:15; Stop 09/26/16 at 14:02; Status DC Haloperidol Lactate (Haldol) 2.5 mg PRN Q6HRS PRN IVP AGITATION; Start at 14:15; Stop 09/26/16 at 14:02; Status DC Lorazepam 2 mg 2 mg PRN Q4HRS PRN IM ANXIETY / AGITATION; Start 09/12/16 at 14: 30; Stop 09/17/16 at 14:37; Status DC Sodium Chloride (Iv Sodium Chloride 0.9% 1000ml Bag) 1,000 ml @ 1,000 mls/hr Q1H PRN IV hypotension; Start 09/13/16 at 08:39; Stop 09/13/16 at 14:38; Status DC Diphenhydramine HCl (Benadryl) 25 mg 1X PRN PRN IV ITCHING; Start 09/13/16 at 08:45; Stop 09/14/16 at 08:44; Status DC Diphenhydramine HCl (Benadryl) 25 mg 1X PRN PRN IV ITCHING; Start 09/13/16 at 08:45; Stop 09/14/16 at 08:44; Status DC Sodium Chloride (Normal Saline Flush) 10 ml 1X PRN PRN IV AP catheter pack; Start 09/13/16 at 08:45; Stop 09/14/16 at 08:44; Status DC Sodium Chloride (Normal Saline Flush) 10 ml 1X PRN PRN IV HEAD START DIRECTOR catheter pack; Start 09/13/16 at 08:45; Stop 09/14/16 at 08:44; Status DC Labetalol HCl (Normodyne) 10 mg PRN Q1HR PRN IVP SBP > 180; Start 09/13/16 at 08:45; Stop 09/14/16 at 08:44; Status DC Info (PHARMACY MONITORING -- do not chart) 1 each PRN DAILY PRN MC SEE COMMENTS ; Start 09/13/16 at 08:45; Status UNV Info (PHARMACY MONITORING -- do not chart) 1 each PRN DAILY PRN MC SEE COMMENTS ; Start 09/13/16 at 08:45; Status UNV Pantoprazole Sodium 40 mg 40 mg DAILYAC IVP Last administered on 09/16/16t 05: 57; Start 09/13/16 at 13:00; Stop 09/17/16 at 10:02; Status DC Sodium Chloride (Iv Sodium Chloride 0.9% 1000ml Bag) 1,000 ml @ 1,000 mls/hr Q1H PRN IV hypotension; Start 09/16/16 at 08:46; Stop 09/16/16 at 14:45; Status DC Diphenhydramine HCl (Benadryl) 25 mg 1X PRN PRN IV ITCHING; Start 09/16/16 at 09:00; Stop 09/17/16 at 08:59; Status DC Diphenhydramine HCl (Benadryl) 25 mg 1X PRN PRN IV ITCHING; Start 09/16/16 at 09:00; Stop 09/17/16 at 08:59; Status DC Sodium Chloride (Normal Saline Flush) 10 ml 1X PRN PRN IV AP catheter pack; Start 09/16/16 at 09:00; Stop 09/17/16 at 08:59; Status DC Sodium Chloride (Normal Saline Flush) 10 ml 1X PRN PRN IV HEAD START DIRECTOR catheter pack; Start 09/16/16 at 09:00; Stop 09/17/16 at 08:59; Status DC Info (PHARMACY MONITORING -- do not chart) 1 each PRN DAILY PRN MC SEE COMMENTS ; Start 09/16/16 at 09:00; Status UNV Info (PHARMACY MONITORING -- do not chart) 1 each PRN DAILY PRN MC SEE COMMENTS ; Start 09/16/16 at 09:00; Status UNV Darbepoetin Ernst (Aranesp) 60 mcg [id number] SQ Last administered on 09/23/16 20: 43; Start 09/16/16 at 21:00; Stop 09/26/16 at 11:05; Status DC Pantoprazole Sodium (Protonix) 40 mg DAILYAC PO Last administered on 10/01/16 07:30; Start 09/17/16 at 10:02 Fentanyl Citrate (Fentanyl 2ml Vial) 25 mcg PRN Q5MIN PRN IV MILD PAIN; Start 09/18/16 at 07:00; Stop 09/19/16 at 06:59; Status DC Fentanyl Citrate 50 mcg 50 mcg PRN Q5MIN PRN IV MODERATE PAIN; Start 09/18/16 at 07:00; Stop 09/19/16 at 06:59; Status DC Lactated Ringer's (Iv Lactated Ringers) 1,000 ml @ 0 mls/hr Q0M IV ; Start 09/18 at 07:00; Stop 09/18/16 at 18:59; Status DC Lidocaine HCl 2 ml 1X PRN PRN ID IV START; Start 09/18/16 at 07:00; Stop at 06:59; Status DC Prochlorperazine Edisylate (Compazine) 5 mg PACU PRN PRN IV NAUSEA; Start at 07:00; Stop 09/19/16 at 06:59; Status DC Dextrose 25 gm 25 gm STK-MED ONCE IV Last administered on 09/18/16 08:19; Start 09/18/16 at 08:19; Stop 09/18/16 at 08:20; Status DC Propofol (Diprivan) 20 ml @ As Directed STK-MED ONCE IV ; Start 09/18/16 at 11:13 ; Stop 09/18/16 at 11:14; Status DC Lidocaine HCl 5 ml 5 ml STK-MED ONCE .ROUTE ; Start 09/18/16 at 11:13; Stop at 11:14; Status DC Sodium Chloride 1,000 ml @ 100 mls/hr 1X ONCE IV Last administered on 11:29; Start 09/18/16 at 11:30; Stop 09/18/16 at 21:29; Status DC Sodium Chloride (Iv Sodium Chloride 0.9% 1000ml Bag) 1,000 ml @ 1,000 mls/hr Q1H PRN IV hypotension; Start 09/18/16 at 13:47; Stop 09/18/16 at 19:46; Status DC Acetaminophen (Tylenol) 500 mg 1X PRN PRN PO MILD PAIN / TEMP; Start 09/18/16 at 14:00; Stop 09/19/16 at 13:59; Status DC Diphenhydramine HCl (Benadryl) 25 mg 1X PRN PRN IV ITCHING; Start 09/18/16 at 14 :00; Stop 09/19/16 at 13:59; Status DC Diphenhydramine HCl (Benadryl) 25 mg 1X PRN PRN IV ITCHING; Start 09/18/16 at 14 :00; Stop 09/19/16 at 13:59; Status DC Labetalol HCl 10 mg 10 mg PRN Q1HR PRN IVP SBP > 180; Start 09/18/16 at 14:00; Stop 09/19/16 at 13:59; Status DC Sodium Chloride (Iv Sodium Chloride 0.9% 1000ml Bag) 1,000 ml @ 400 mls/hr Q2H30M PRN IV PATENCY; Start 09/18/16 at 13:47; Stop 09/19/16 at 01:46; Status DC Info 1 each 1 each PRN DAILY PRN MC SEE COMMENTS; Start 09/18/16 at 14:00; Status UNV Sodium Chloride 1,000 ml @ 1,000 mls/hr Q1H PRN IV hypotension; Start 09/20/16 at 07:30; Stop 09/20/16 at 18:00; Status DC Albumin Human (Albuminar) 200 ml @ 200 mls/hr 1X PRN PRN IV Hypotension; Start 09/20/16 at 07:45; Stop 09/20/16 at 14:00; Status DC Acetaminophen (Tylenol) 500 mg 1X PRN PRN PO MILD PAIN / TEMP; Start 09/20/16 at 07:45; Stop 09/20/16 at 18:00; Status DC Diphenhydramine HCl (Benadryl) 25 mg 1X PRN PRN IV ITCHING; Start 09/20/16 at 07 :45; Stop 09/20/16 at 18:00; Status DC Diphenhydramine HCl (Benadryl) 25 mg 1X PRN PRN IV ITCHING; Start 09/20/16 at 07 :45; Stop 09/20/16 at 18:00; Status DC Sodium Chloride (Normal Saline Flush) 10 ml 1X PRN PRN IV AP catheter pack; Start 09/20/16 at 07:45; Stop 09/20/16 at 18:00; Status DC Sodium Chloride (Normal Saline Flush) 10 ml 1X PRN PRN IV HEAD START DIRECTOR catheter pack; Start 09/20/16 at 07:45; Stop 09/20/16 at 18:00; Status DC Labetalol HCl 10 mg 10 mg PRN Q1HR PRN IVP SBP > 180; Start 09/20/16 at 07:45; Stop 09/20/16 at 18:00; Status DC Sodium Chloride (Iv Sodium Chloride 0.9% 1000ml Bag) 1,000 ml @ 400 mls/hr Q2H30M PRN IV PATENCY; Start 09/20/16 at 07:45; Stop 09/20/16 at 18:00; Status DC Info (PHARMACY MONITORING -- do not chart) 1 each PRN DAILY PRN MC SEE COMMENTS ; Start 09/20/16 at 07:45; Status UNV Warfarin Sodium (Coumadin Per Pharmacy) 1 each PRN DAILY PRN MC SEE COMMENTS Last administered on 09/30/16 15:57; Start 09/20/16 at 14:30 Warfarin Sodium (Coumadin) 2 mg 1X WARF ONCE PO Last administered on 09/20/16 17:27; Start 09/20/16 at 17:14; Stop 09/20/16 at 17:15; Status DC Methylprednisolone Acetate (Depo-Medrol 80mg Vial) 80 mg 1X ONCE IM ; Start 09/20/16 at 17:30; Stop 09/20/16 at 17:33; Status DC Methylprednisolone Acetate (Depo-Medrol 40mg Vial) 40 mg 1X ONCE IM ; Start 09/20/16 at 17:30; Stop 09/20/16 at 17:33; Status DC Bupivacaine HCl (Sensorcaine-Mpf 0.25%) 10 ml 1X ONCE IJ ; Start 09/20/16 at 17: 30; Stop 09/20/16 at 17:33; Status DC Warfarin Sodium (Coumadin) 2 mg 1X WARF ONCE PO Last administered on 09/21/16 17:14; Start 09/21/16 at 16:00; Stop 09/21/16 at 16:01; Status DC Warfarin Sodium 3 mg 3 mg 1X WARF ONCE PO Last administered on 09/22/16 17:28 ; Start 09/22/16 at 16:00; Stop 09/22/16 at 16:01; Status DC Sodium Chloride (Iv Sodium Chloride 0.9% 1000ml Bag) 1,000 ml @ 1,000 mls/hr Q1H PRN IV hypotension; Start 09/23/16 at 14:18; Stop 09/23/16 at 21:00; Status DC Sodium Chloride (Normal Saline Flush) 10 ml 1X PRN PRN IV AP catheter pack; Start 09/23/16 at 14:30; Stop 09/23/16 at 21:00; Status DC Sodium Chloride (Normal Saline Flush) 10 ml 1X PRN PRN IV HEAD START DIRECTOR catheter pack; Start 09/23/16 at 14:30; Stop 09/23/16 at 21:00; Status DC Info (PHARMACY MONITORING -- do not chart) 1 each PRN DAILY PRN MC SEE COMMENTS ; Start 09/23/16 at 14:30; Status UNV Info (PHARMACY MONITORING -- do not chart) 1 each PRN DAILY PRN MC SEE COMMENTS ; Start 09/23/16 at 14:30; Status UNV Warfarin Sodium (Coumadin) 3 mg 1X ONCE PO Last administered on 09/23/16 17:34 ; Start 09/23/16 at 17:00; Stop 09/23/16 at 17:01; Status DC Lidocaine/Sodium Bicarbonate (Buffered Lidocaine 1%) 20 ml STK-MED ONCE IJ ; Start 09/24/16 at 14:59; Stop 09/24/16 at 15:00; Status DC Fentanyl Citrate (Fentanyl 2ml Vial) 100 mcg STK-MED ONCE .ROUTE ; Start at 15:05; Stop 09/24/16 at 15:06; Status DC Midazolam HCl (Versed) 2 mg STK-MED ONCE .ROUTE ; Start 09/24/16 at 15:05; Stop 09/24/16 at 15:06; Status DC Lidocaine/Sodium Bicarbonate (Buffered Lidocaine 1%) 20 ml 1X ONCE IJ Last administered on 09/24/16 16:13; Start 09/24/16 at 16:15; Stop 09/24/16 at 16:16; Status DC Midazolam HCl (Versed) 2 mg 1X ONCE IV Last administered on 09/24/16 16:14; Start 09/24/16 at 16:15; Stop 09/24/16 at 16:16; Status DC Fentanyl Citrate (Fentanyl 2ml Vial) 100 mcg 1X ONCE IV Last administered on 16:15; Start 09/24/16 at 16:15; Stop 09/24/16 at 16:16; Status DC Warfarin Sodium 2 mg 2 mg 1X ONCE PO Last administered on 09/24/16 16:35; Start 09/24/16 at 17:00; Stop 09/24/16 at 17:01; Status DC Sodium Chloride 1,000 ml @ 1,000 mls/hr Q1H PRN IV hypotension; Start 09/25/16 at 08:38; Stop 09/25/16 at 14:37; Status DC Albumin Human (Albuminar) 200 ml @ 200 mls/hr 1X PRN PRN IV Hypotension; Start 09/25/16 at 08:45; Stop 09/25/16 at 14:44; Status DC Acetaminophen (Tylenol) 500 mg 1X PRN PRN PO MILD PAIN / TEMP; Start 09/25/16 at 08:45; Stop 09/26/16 at 08:44; Status DC Diphenhydramine HCl (Benadryl) 25 mg 1X PRN PRN IV ITCHING; Start 09/25/16 at 08 :45; Stop 09/26/16 at 08:44; Status DC Info (PHARMACY MONITORING -- do not chart) 1 each PRN DAILY PRN MC SEE COMMENTS ; Start 09/25/16 at 08:45; Status UNV Vancomycin HCl 1 each 1 each PRN DAILY PRN MC SEE COMMENTS Last administered on 09/30/16 15:58; Start 09/25/16 at 09:15 Piperacillin Sod/ Tazobactam Sod 2.25 gm/Sodium Chloride 50 ml @ 100 mls/hr Q6HRS IV Last administered on 10/01/16 05:44; Start 09/25/16 at 10:00 Vancomycin HCl/ Sodium Chloride (Iv Sodium Chloride 0.9% 500ml Bag) 500 ml @ 250 mls/hr ONCE ONCE IV Last administered on 09/25/16 13:32; Start 09/25/16 at 10:00; Stop 09/25/16 at 11:59; Status DC Warfarin Sodium (Coumadin) 4 mg 1X WARF ONCE PO ; Start 09/25/16 at 16:00; Stop 09/25/16 at 16:00; Status DC Warfarin Sodium 3 mg 3 mg 1X WARF ONCE PO Last administered on 09/25/16 16:00 ; Start 09/25/16 at 16:00; Stop 09/25/16 at 16:01; Status DC Magnesium Sulfate/ Dextrose (Magnesium Sulfate PREMIX 2GM) 50 ml @ 25 mls/hr PRN DAILY PRN IV for Mag < 1.7 on am labs Last administered on 09/28/16 18:18 ; Start 09/26/16 at 11:15 Darbepoetin Ernst (Aranesp) 100 mcg Th SQ Last administered on 09/26/16 20:40; Start 09/26/16 at 21:00 Amlodipine Besylate (Norvasc) 2.5 mg DAILY PO Last administered on 09/26/16 12: 21; Start 09/26/16 at 11:00; Stop 09/26/16 at 14:02; Status DC Amlodipine Besylate (Norvasc) 5 mg DAILY PO Last administered on 10/01/16 08: 16; Start 09/27/16 at 09:00 Warfarin Sodium (Coumadin) 5 mg 1X WARF ONCE PO Last administered on 09/26/16 16:15; Start 09/26/16 at 16:00; Stop 09/26/16 at 16:01; Status DC Vancomycin HCl 1 each 1 each 1X ONCE MC ; Start 09/27/16 at 16:00; Stop at 16:01; Status DC Sodium Chloride 1,000 ml @ 1,000 mls/hr Q1H PRN IV hypotension; Start 09/27/16 at 09:47; Stop 09/27/16 at 15:46; Status DC Albumin Human (Albuminar) 200 ml @ 200 mls/hr 1X PRN PRN IV Hypotension; Start 09/27/16 at 10:00; Stop 09/27/16 at 15:59; Status DC Acetaminophen (Tylenol) 500 mg 1X PRN PRN PO MILD PAIN / TEMP; Start 09/27/16 at 10:00; Stop 09/28/16 at 09:59; Status DC Diphenhydramine HCl (Benadryl) 25 mg 1X PRN PRN IV ITCHING; Start 09/27/16 at 10:00; Stop 09/28/16 at 09:59; Status DC Diphenhydramine HCl (Benadryl) 25 mg 1X PRN PRN IV ITCHING; Start 09/27/16 at 10:00; Stop 09/28/16 at 09:59; Status DC Labetalol HCl 10 mg 10 mg PRN Q1HR PRN IVP SBP > 180; Start 09/27/16 at 10:00; Stop 09/28/16 at 09:59; Status DC Sodium Chloride (Iv Sodium Chloride 0.9% 1000ml Bag) 1,000 ml @ 400 mls/hr Q2H30M PRN IV PATENCY; Start 09/27/16 at 09:47; Stop 09/27/16 at 21:46; Status DC Info (PHARMACY MONITORING -- do not chart) 1 each PRN DAILY PRN MC SEE COMMENTS ; Start 09/27/16 at 10:00; Status UNV Warfarin Sodium 5 mg 5 mg 1X WARF ONCE PO Last administered on 09/27/16 17:11 ; Start 09/27/16 at 16:00; Stop 09/27/16 at 16:01; Status DC Vancomycin HCl/ Sodium Chloride (Iv Sodium Chloride 0.9% 250ml) 250 ml @ 250 mls/hr ONCE ONCE IV Last administered on 09/27/16 21:15; Start 09/27/16 at 20 :10; Stop 09/27/16 at 21:09; Status DC Potassium Chloride (Klor-Con) 40 meq 1X ONCE PO Last administered on 12:04; Start 09/28/16 at 12:30; Stop 09/28/16 at 12:31; Status DC Warfarin Sodium (Coumadin) 4 mg 1X WARF ONCE PO Last administered on 15:32; Start 09/28/16 at 16:00; Stop 09/28/16 at 16:01; Status DC Warfarin Sodium 4 mg 4 mg 1X WARF ONCE PO Last administered on 09/29/16 17:06 ; Start 09/29/16 at 16:00; Stop 09/29/16 at 16:01; Status DC Vancomycin HCl 500 mg/Sodium Chloride 100 ml @ 100 mls/hr QMWF IV Last administered on 09/30/16t 15:47; Start 09/30/16 at 16:00 Sodium Chloride (Iv Sodium Chloride 0.9% 1000ml Bag) 1,000 ml @ 1,000 mls/hr Q1H PRN IV hypotension; Start 09/30/16 at 08:00; Stop 09/30/16 at 13:59; Status DC Acetaminophen (Tylenol) 500 mg 1X PRN PRN PO MILD PAIN / TEMP; Start 09/30/16 at 09:00; Stop 10/01/16 at 08:59; Status DC Diphenhydramine HCl (Benadryl) 25 mg 1X PRN PRN IV ITCHING; Start 09/30/16 at 09:00; Stop 10/01/16 at 08:59; Status DC Diphenhydramine HCl 25 mg 25 mg 1X PRN PRN IV ITCHING; Start 09/30/16 at 09:00 ; Stop 10/01/16 at 08:59; Status DC Sodium Chloride (Iv Sodium Chloride 0.9% 1000ml Bag) 1,000 ml @ 400 mls/hr Q2H30M PRN IV PATENCY; Start 09/30/16 at 08:00; Stop 09/30/16 at 19:59; Status DC Info (PHARMACY MONITORING -- do not chart) 1 each PRN DAILY PRN MC SEE COMMENTS ; Start 09/30/16 at 09:00 Warfarin Sodium (Coumadin) 4 mg 1X WARF ONCE PO Last administered on t 17:12; Start 09/30/16 at 16:00; Stop 09/30/16 at 16:01; Status DC Active Scripts Active Reported [Mylanta] Tylenol (Acetaminophen) 325 Mg Tablet 1 Tab PO PRN Q4HRS Fleet Enema (Na Phos,M-B/Na Phos,Di-Ba) 133 Ml Enema 1 Each RC ONCE Dulcolax (Bisacodyl) 10 Mg Supp.rect 10 Mg RC PRN DAILY PRN Zofran Odt (Ondansetron) 8 Mg Tab.rapdis 1 Tab PO PRN Q8HRS PRN Nitrostat (Nitroglycerin) 0.4 Mg Tab.subl 1 Tab SL UD Cyclobenzaprine Hcl 10 Mg Tablet 1 Tab PO TID Zepatier 50-100 mg Tablet (Elbasvir/Grazoprevir) 1 Each Tablet 1 Each PO [PhosLo] Coreg (Carvedilol) 25 Mg Tablet 1 Tab PO BID Aspirin 81 Mg Tab.chew 1 Tab PO DAILY Allopurinol 100 Mg Tablet 1 Tab PO DAILY Ventolin Hfa Inhaler (Albuterol Sulfate) 18 Gm Hfa.aer.ad 2 Puff INH Q4HRS Nephplex Rx Tablet (Vit B Cmplx No3/Fa/C/Biot/Zinc) 1 Each Tablet 1 Each PO Senokot (Sennosides) 8.6 Mg Tablet 1 Tab PO BID Oxycontin (Oxycodone HCl) 10 Mg Tab.er.12h 10 Mg PO BID Glycolax (Polyethylene Glycol 3350) 119 Gm Powder 17 Gm PO UD Percocet 10-325 Mg Tablet (Oxycodone/Acetaminophen) 1 Each Tablet 1 Tab PO Q4- 6HRS Vitamin D3 (Cholecalciferol (Vitamin D3)) 1,000 Unit Tablet 1 Tab PO DAILY Advair 250-50 Diskus (Fluticasone/Salmeterol) 1 Each Disk.w.dev 1 Puff IH BID Ipratropium [place] 0.2 Mg/1 Ml Solution 1 Vial NEB QID Lidoderm (Lidocaine) 700 Mg Adh..patch 1 Patch TP DAILY Nortriptyline Hcl 25 Mg Capsule 1 Cap PO QHS Warfarin Sodium 2 Mg Tablet 1.5 Mg PO DAILY Gabapentin 300 Mg Capsule 300 Mg PO TID Zoloft (Sertraline Hcl) 100 Mg Tablet 1 Tab PO DAILY Vitals/I & O Vital Sign - Last 24 Hours 09/30/16 09/30/16 09/30/16 09/30/16 11:33 12:57 12:57 12:58 Pulse 94 94 B/P 161/92 161/92 Pulse Ox 91 O2 Delivery Room Air Room Air O2 Flow Rate 97.0 09/30/16 09/30/16 09/30/16 09/30/16 14:52 15:43 16:43 16:43 Temp 97.7 97.7 Pulse 94 Resp 18 B/P 198/88 Pulse Ox 99 O2 Delivery Room Air Room Air O2 Flow Rate 97.0 97.0 09/30/16 09/30/16 09/30/16 09/30/16 17:03 17:12 19:00 19:25 Temp 98.4 98.4 Pulse 94 82 Resp 20 B/P 198/88 151/88 Pulse Ox 99 100 O2 Delivery Room Air Room Air 09/30/16 09/30/16 09/30/16 09/30/16 19:29 20:00 20:36 23:00 Temp 97.9 97.9 Pulse 79 Resp 18 18 B/P 164/82 Pulse Ox 100 100 97 O2 Delivery Room Air Room Air Room Air 10/01/16 10/01/16 10/01/16 10/01/16 00:45 03:00 03:15 04:32 Temp 98.0 98.0 Pulse 82 Resp 17 18 16 18 B/P 164/81 Pulse Ox 100 97 100 97 O2 Delivery Room Air Room Air Room Air 10/01/16 10/01/16 10/01/16 10/01/16 04:47 07:00 07:39 08:00 Temp 97.7 97.7 Pulse 85 85 Resp 18 B/P 175/72 175/72 Pulse Ox 98 96 O2 Delivery Room Air Room Air Room Air 10/01/16 10/01/16 10/01/16 08:15 08:16 08:16 Pulse 85 B/P 175/72 O2 Delivery Room Air Room Air O2 Flow Rate 97.0 Intake and Output 09/30/16 09/30/16 10/01/16 15:00 23:00 07:00 Intake Total 360 ml 860 ml Output Total 1 ml Balance 360 ml 860 ml -1 ml CAROLANN PRUETT MD Oct 01, 2016 10:17
--- NOTE | 2016-10-01 10:37 | PDOC ---
PROGRESS NOTES Subjective Subjective up in chair c/o continued back pain and left knee pain admits some numbness in right anterior thigh Objective Objective Vital Signs Date Time Temp Pulse Resp B/P Pulse Ox O2 Delivery O2 Flow Rate FiO2 10/01/16 08:16 85 175/72 10/01/16 08:16 Room Air 10/01/16 08:15 97.0 10/01/16 07:39 96 10/01/16 07:00 97.7 18 97.7 Intake and Output 10/01/16 07:00 Intake Total 1220 ml Output Total 1 ml Balance 1219 ml Intake Oral 1220 ml Output Urine Total 1 ml # Voids 2 # Bowel Movements 2 Physical Exam General: Alert, Oriented X3, Cooperative, No acute distress MUSCULOSKELETAL: Other (FROST) Neuro: Normal speech Psych/Mental Status: Mental status NL Assessment Assessment Problems Medical Problems: (1) Anemia Status: Acute (2) Coagulopathy Status: Acute (3) Coumadin toxicity Status: Acute (4) Elevated INR (international normalized ratio) due to prior anticoagulant medication ingestion Status: Acute (5) ESRD on dialysis Status: Acute (6) GI bleed Status: Acute Plan Plan of Care MRI reviewed with Dr. Navarro- severe lumbar spondylosis with degenerative scoliosis, bony endplate edema at L1-2 suggestive of discitis Agree with antibiotics and rehab D/W Dr. Gurrola Comment Review of Relevant I have reviewed the following items christi (where applicable) has been applied. Labs Laboratory Tests Test 09/29/16 15:27 09/29/16 20:45 09/30/16 05:30 09/30/16 05:50 Glucose (Fingerstick) 113mg/dL (70-99) 137mg/dL (70-99) Prothrombin Time 22.4SEC (11.7-14.0) Prothromb Time International Ratio 2.1 (0.8-1.1) Sodium Level 138mmol/L (136-145) Potassium Level 3.8mmol/L (3.5-5.1) Chloride Level 102mmol/L (98-107) Carbon Dioxide Level 26mmol/L (21-32) Anion Gap 10 (6-14) Blood Urea Nitrogen 24mg/dL (7-20) Creatinine 3.7mg/dL (0.6-1.0) Estimated GFR (Cockcroft-Gault) 15.1 Glucose Level 108mg/dL (70-99) Calcium Level 8.3mg/dL (8.5-10.1) Phosphorus Level 2.4mg/dL (2.6-4.7) Magnesium Level 2.1mg/dL (1.8-2.4) Albumin 1.7g/dL (3.4-5.0) Test 09/30/16 07:17 09/30/16 16:03 09/30/16 20:39 10/01/16 03:25 Glucose (Fingerstick) 103mg/dL (70-99) 91mg/dL (70-99) 117mg/dL (70-99) White Blood Count 9.8x10^3/uL (4.0-11.0) Red Blood Count 2.61x10^6/uL (3.50-5.40) Hemoglobin 7.3g/dL (12.0-15.5) Hematocrit 22.6% (36.0-47.0) Mean Corpuscular Volume 86fL (79-100) Mean Corpuscular Hemoglobin 28pg (25-35) Mean Corpuscular Hemoglobin Concent 32g/dL (31-37) Red Cell Distribution Width 18.2% (11.5-14.5) Platelet Count 236x10^3/uL (140-400) Neutrophils (%) (Auto) 69% (31-73) Lymphocytes (%) (Auto) 19% (24-48) Monocytes (%) (Auto) 9% (0-9) Eosinophils (%) (Auto) 2% (0-3) Basophils (%) (Auto) 0% (0-3) Neutrophils # (Auto) 6.8x10^3uL (1.8-7.7) Lymphocytes # (Auto) 1.9x10^3/uL (1.0-4.8) Monocytes # (Auto) 0.9x10^3/uL (0.0-1.1) Eosinophils # (Auto) 0.2x10^3/uL (0.0-0.7) Basophils # (Auto) 0.0x10^3/uL (0.0-0.2) Prothrombin Time 23.3SEC (11.7-14.0) Prothromb Time International Ratio 2.2 (0.8-1.1) Sodium Level 138mmol/L (136-145) Potassium Level 3.5mmol/L (3.5-5.1) Chloride Level 101mmol/L (98-107) Carbon Dioxide Level 29mmol/L (21-32) Anion Gap 8 (6-14) Blood Urea Nitrogen 14mg/dL (7-20) Creatinine 2.5mg/dL (0.6-1.0) Estimated GFR (Cockcroft-Gault) 23.8 Glucose Level 125mg/dL (70-99) Calcium Level 8.4mg/dL (8.5-10.1) Phosphorus Level 2.0mg/dL (2.6-4.7) Magnesium Level 1.8mg/dL (1.8-2.4) Albumin 1.7g/dL (3.4-5.0) Test 10/01/16 07:16 Glucose (Fingerstick) 108mg/dL (70-99) Laboratory Tests Test 09/30/16 16:03 09/30/16 20:39 10/01/16 03:25 10/01/16 07:16 Glucose (Fingerstick) 91mg/dL (70-99) 117mg/dL (70-99) 108mg/dL (70-99) White Blood Count 9.8x10^3/uL (4.0-11.0) Red Blood Count 2.61x10^6/uL (3.50-5.40) Hemoglobin 7.3g/dL (12.0-15.5) Hematocrit 22.6% (36.0-47.0) Mean Corpuscular Volume 86fL (79-100) Mean Corpuscular Hemoglobin 28pg (25-35) Mean Corpuscular Hemoglobin Concent 32g/dL (31-37) Red Cell Distribution Width 18.2% (11.5-14.5) Platelet Count 236x10^3/uL (140-400) Neutrophils (%) (Auto) 69% (31-73) Lymphocytes (%) (Auto) 19% (24-48) Monocytes (%) (Auto) 9% (0-9) Eosinophils (%) (Auto) 2% (0-3) Basophils (%) (Auto) 0% (0-3) Neutrophils # (Auto) 6.8x10^3uL (1.8-7.7) Lymphocytes # (Auto) 1.9x10^3/uL (1.0-4.8) Monocytes # (Auto) 0.9x10^3/uL (0.0-1.1) Eosinophils # (Auto) 0.2x10^3/uL (0.0-0.7) Basophils # (Auto) 0.0x10^3/uL (0.0-0.2) Prothrombin Time 23.3SEC (11.7-14.0) Prothromb Time International Ratio 2.2 (0.8-1.1) Sodium Level 138mmol/L (136-145) Potassium Level 3.5mmol/L (3.5-5.1) Chloride Level 101mmol/L (98-107) Carbon Dioxide Level 29mmol/L (21-32) Anion Gap 8 (6-14) Blood Urea Nitrogen 14mg/dL (7-20) Creatinine 2.5mg/dL (0.6-1.0) Estimated GFR (Cockcroft-Gault) 23.8 Glucose Level 125mg/dL (70-99) Calcium Level 8.4mg/dL (8.5-10.1) Phosphorus Level 2.0mg/dL (2.6-4.7) Magnesium Level 1.8mg/dL (1.8-2.4) Albumin 1.7g/dL (3.4-5.0) Microbiology 09/24/16 Blood Culture - Final, Complete NO GROWTH AFTER 5 DAYS 09/24/16 Anaerobic/Aerobic Culture - Final, Complete 09/24/16 Anaerobic Culture Result 1 (CONNOR) - Final, Complete 09/24/16 Aerobic Culture - Final, Complete 09/24/16 Aerobic Culture Result 1 (CONNOR) - Final, Complete Medications Current Medications Oxycodone/ Acetaminophen (Percocet 5/325) 1 tab 1X ONCE PO ; Start 09/09/16 at 19:00; Stop 09/09/16 at 19:01; Status DC Hydromorphone HCl 1 mg 1 mg 1X ONCE IV Last administered on 09/09/16t 19:21; Start 09/09/16 at 19:15; Stop 09/09/16 at 19:16; Status DC Pantoprazole Sodium/Sodium Chloride (Protonix Iv/Iv Sodium Chloride 0.9% 100ml) 100 ml @ 10 mls/hr 1X ONCE IV Last administered on 09/09/16 19:51; Start at 19:30; Stop 09/10/16 at 05:29; Status DC Ondansetron HCl 4 mg 4 mg PRN Q8HRS PRN IV NAUSEA/VOMITING Last administered on 09/09/16 19:51; Start 09/09/16 at 19:30; Stop 09/10/16 at 19:29; Status DC Sodium Chloride (Iv Sodium Chloride 0.9% 1000ml Bag) 1,000 ml @ 100 mls/hr Q10H IV Last administered on 09/09/16 19:51; Start 09/09/16 at 19:30; Stop at 06:00; Status DC Acetaminophen (Tylenol) 650 mg PRN Q4HRS PRN PO FEVER Last administered on 09/09 19:52; Start 09/09/16 at 19:30; Stop 09/10/16 at 19:29; Status DC Multi-Ingredient Mouthwash/Gargle 15 ml 15 ml 1X ONCE SWSW Last administered on 09/09/16 23:41; Start 09/09/16 at 23:30; Stop 09/09/16 at 23:31; Status DC Phytonadione/ Sodium Chloride (Vitamin K/Iv Sodium Chloride 0.9% 50ml) 51 ml @ 102 mls/hr 1X ONCE IV Last administered on 09/10/16 02:07; Start 09/10/16 at 00:00; Stop 09/10/16 at 00:29; Status DC Acetaminophen (Tylenol) 325 mg PRN Q4HRS PO ; Start 09/09/16 at 23:30; Stop at 23:30; Status DC Allopurinol (Zyloprim) 100 mg DAILY PO Last administered on 10/01/16 08:16; Start 09/10/16 at 09:00 Bisacodyl (Dulcolax Supp) 10 mg PRN DAILY PRN RC CONSTIPATION; Start 09/09/16 at 23:30 Cyclobenzaprine HCl (Flexeril) 10 mg PRN TID PRN PO back pain Last administered on 10/01/16 00:14; Start 09/09/16 at 23:30 Gabapentin (Neurontin) 300 mg DAILY PO Last administered on 10/01/16 08:16; Start 09/10/16 at 09:00 Ipratropium [place] (Atrovent) 0.2 mg QID NEB ; Start 09/10/16 at 09:00; Status UNV Lidocaine (Lidoderm) 1 patch DAILY TP Last administered on 10/01/16 08:16; Start 09/10/16 at 09:00 Nortriptyline HCl (Pamelor) 25 mg QHS PO Last administered on 09/30/16 20:36; Start 09/10/16 at 21:00 Oxycodone HCl (Oxycontin) 10 mg BID PO Last administered on 10/01/16 08:16; Start 09/10/16 at 09:00 Oxycodone/ Acetaminophen (Percocet 10/325) 1 tab PRN Q4HRS PRN PO SEVERE PAIN Last administered on 10/01/16 03:15; Start 09/09/16 at 23:30 Non-Formulary Medication 2 puff Q4HRS INH FOR ASTHMA; Start 09/10/16 at 00:00; Status UNV Carvedilol (Coreg) 25 mg BIDWMEALS PO Last administered on 10/01/16 08:00; Start 09/10/16 at 08:00 Non-Formulary Medication 1 puff BID IH ; Start 09/10/16 at 09:00; Status UNV Ondansetron HCl (Zofran Odt) 8 mg Q8HRS PO Last administered on 09/30/16 05:52 ; Start 09/10/16 at 06:00 Sertraline HCl (Zoloft) 100 mg DAILY PO Last administered on 10/01/16 08:16; Start 09/10/16 at 09:00 Labetalol HCl (Normodyne) 20 mg PRN Q2HR PRN IVP HYPERTENSION, SEE COMMENTS Last administered on 09/25/16 05:47; Start 09/09/16 at 23:30 Albuterol/ Ipratropium (Duoneb) 3 ml RTQID NEB Last administered on 10/01/16 07:37; Start 09/10/16 at 08:00 Budesonide (Pulmicort) 0.5 mg RTBID NEB Last administered on 10/01/16 07:37; Start 09/10/16 at 08:00 Albuterol Sulfate 2.5 mg 2.5 mg PRN Q4HRS PRN NEB SHORTNESS OF BREATH Last administered on 10/01/16 04:46; Start 09/09/16 at 23:30 Pantoprazole Sodium 80 mg/ Sodium Chloride 100 ml @ 10 mls/hr Q10H IV Last administered on 09/13/16 07:51; Start 09/10/16 at 10:00; Stop 09/13/16 at 09:59 ; Status DC Magnesium Sulfate/ Dextrose 50 ml @ 25 mls/hr PRN DAILY PRN IV for Mag < 1.7 on am labs; Start 09/10/16 at 10:00; Stop 09/22/16 at 11:36; Status DC Sodium Chloride (Iv Sodium Chloride 0.9% 1000ml Bag) 1,000 ml @ 1,000 mls/hr Q1H PRN IV hypotension; Start 09/11/16 at 08:50; Stop 09/11/16 at 14:49; Status DC Diphenhydramine HCl (Benadryl) 25 mg 1X PRN PRN IV ITCHING; Start 09/11/16 at 09:00; Stop 09/12/16 at 08:59; Status DC Diphenhydramine HCl (Benadryl) 25 mg 1X PRN PRN IV ITCHING; Start 09/11/16 at 09:00; Stop 09/12/16 at 08:59; Status DC Sodium Chloride (Normal Saline Flush) 10 ml 1X PRN PRN IV AP catheter pack; Start 09/11/16 at 09:00; Stop 09/12/16 at 08:59; Status DC Sodium Chloride (Normal Saline Flush) 10 ml 1X PRN PRN IV HYDROELECTRIC POWERPLANT SUPERVISOR catheter pack; Start 09/11/16 at 09:00; Stop 09/12/16 at 08:59; Status DC Labetalol HCl 10 mg 10 mg PRN Q1HR PRN IVP SBP > 180; Start 09/11/16 at 09:00; Stop 09/12/16 at 08:59; Status DC Sodium Chloride (Iv Sodium Chloride 0.9% 1000ml Bag) 1,000 ml @ 400 mls/hr Q2H30M PRN IV PATENCY; Start 09/11/16 at 08:50; Stop 09/11/16 at 20:49; Status DC Info (PHARMACY MONITORING -- do not chart) 1 each PRN DAILY PRN MC SEE COMMENTS ; Start 09/11/16 at 09:00; Stop 09/30/16 at 14:09; Status DC Info (PHARMACY MONITORING -- do not chart) 1 each PRN DAILY PRN MC SEE COMMENTS ; Start 09/11/16 at 09:00; Status UNV Sodium Cl/Sod Bicarb/Potass Cl/ PEG (Golytely) 4,000 ml 1X ONCE PO Last administered on 09/11/16t 17:13; Start 09/11/16 at 13:00; Stop 09/11/16 at 13:01 ; Status DC Fentanyl Citrate (Fentanyl 2ml Vial) 25 mcg PRN Q5MIN PRN IV MILD PAIN; Start 09/12/16 at 07:00; Stop 09/13/16 at 06:59; Status DC Fentanyl Citrate 50 mcg 50 mcg PRN Q5MIN PRN IV MODERATE PAIN; Start 09/12/16 at 07:00; Stop 09/13/16 at 06:59; Status DC Lactated Ringer's (Iv Lactated Ringers) 1,000 ml @ 0 mls/hr Q0M IV ; Start at 07:00; Stop 09/12/16 at 18:59; Status DC Lidocaine HCl 2 ml 1X PRN PRN ID IV START; Start 09/12/16 at 07:00; Stop at 06:59; Status DC Prochlorperazine Edisylate (Compazine) 5 mg PACU PRN PRN IV NAUSEA; Start 09/12 at 07:00; Stop 09/13/16 at 06:59; Status DC Pantoprazole Sodium 40 mg 40 mg DAILYAC IVP ; Start 09/13/16 at 07:30; Status UNV Magnesium Sulfate/ Dextrose 50 ml @ 25 mls/hr 1X ONCE IV ; Start 09/12/16 at 11 :30; Stop 09/12/16 at 13:29; Status DC Propofol 0 ml @ As Directed STK-MED ONCE IV ; Start 09/12/16 at 12:55; Stop at 12:56; Status DC Propofol (Diprivan) 20 ml @ As Directed STK-MED ONCE IV ; Start 09/12/16 at 12: 55; Stop 09/12/16 at 12:56; Status Cancel Lidocaine HCl (Lidocaine Pf 2% Vial) 5 ml STK-MED ONCE .ROUTE ; Start 09/12/16 at 12:55; Stop 09/12/16 at 12:56; Status DC Lorazepam (Ativan) 2 mg PRN Q4HRS PRN IV ANXIETY / AGITATION Last administered on 09/26/16t 03:00; Start 09/12/16 at 14:15 Lorazepam (Ativan) 2 mg Q4HRS PRN IV ANXIETY / AGITATION; Start 09/12/16 at 14: 15; Status UNV Haloperidol Lactate (Haldol) 2.5 mg PRN Q6HRS PRN IM AGITATION; Start 09/12/16 at 14:15; Stop 09/26/16 at 14:02; Status DC Haloperidol Lactate (Haldol) 2.5 mg PRN Q6HRS PRN IVP AGITATION; Start at 14:15; Stop 09/26/16 at 14:02; Status DC Lorazepam 2 mg 2 mg PRN Q4HRS PRN IM ANXIETY / AGITATION; Start 09/12/16 at 14: 30; Stop 09/17/16 at 14:37; Status DC Sodium Chloride (Iv Sodium Chloride 0.9% 1000ml Bag) 1,000 ml @ 1,000 mls/hr Q1H PRN IV hypotension; Start 09/13/16 at 08:39; Stop 09/13/16 at 14:38; Status DC Diphenhydramine HCl (Benadryl) 25 mg 1X PRN PRN IV ITCHING; Start 09/13/16 at 08:45; Stop 09/14/16 at 08:44; Status DC Diphenhydramine HCl (Benadryl) 25 mg 1X PRN PRN IV ITCHING; Start 09/13/16 at 08:45; Stop 09/14/16 at 08:44; Status DC Sodium Chloride (Normal Saline Flush) 10 ml 1X PRN PRN IV AP catheter pack; Start 09/13/16 at 08:45; Stop 09/14/16 at 08:44; Status DC Sodium Chloride (Normal Saline Flush) 10 ml 1X PRN PRN IV HYDROELECTRIC [employer]OWER[employer] SUPERVISOR catheter pack; Start 09/13/16 at 08:45; Stop 09/14/16 at 08:44; Status DC Labetalol HCl (Normodyne) 10 mg PRN Q1HR PRN IVP SBP > 180; Start 09/13/16 at 08:45; Stop 09/14/16 at 08:44; Status DC Info (PHARMACY MONITORING -- do not chart) 1 each PRN DAILY PRN MC SEE COMMENTS ; Start 09/13/16 at 08:45; Status UNV Info (PHARMACY MONITORING -- do not chart) 1 each PRN DAILY PRN MC SEE COMMENTS ; Start 09/13/16 at 08:45; Status UNV Pantoprazole Sodium 40 mg 40 mg DAILYAC IVP Last administered on 09/16/16t 05: 57; Start 09/13/16 at 13:00; Stop 09/17/16 at 10:02; Status DC Sodium Chloride (Iv Sodium Chloride 0.9% 1000ml Bag) 1,000 ml @ 1,000 mls/hr Q1H PRN IV hypotension; Start 09/16/16 at 08:46; Stop 09/16/16 at 14:45; Status DC Diphenhydramine HCl (Benadryl) 25 mg 1X PRN PRN IV ITCHING; Start 09/16/16 at 09:00; Stop 09/17/16 at 08:59; Status DC Diphenhydramine HCl (Benadryl) 25 mg 1X PRN PRN IV ITCHING; Start 09/16/16 at 09:00; Stop 09/17/16 at 08:59; Status DC Sodium Chloride (Normal Saline Flush) 10 ml 1X PRN PRN IV AP catheter pack; Start 09/16/16 at 09:00; Stop 09/17/16 at 08:59; Status DC Sodium Chloride (Normal Saline Flush) 10 ml 1X PRN PRN IV HYDROELECTRIC [employer] SUPERVISOR catheter pack; Start 09/16/16 at 09:00; Stop 09/17/16 at 08:59; Status DC Info (PHARMACY MONITORING -- do not chart) 1 each PRN DAILY PRN MC SEE COMMENTS ; Start 09/16/16 at 09:00; Status UNV Info (PHARMACY MONITORING -- do not chart) 1 each PRN DAILY PRN MC SEE COMMENTS ; Start 09/16/16 at 09:00; Status UNV Darbepoetin Ernst (Aranesp) 60 mcg [id number] SQ Last administered on 09/23/16 20: 43; Start 09/16/16 at 21:00; Stop 09/26/16 at 11:05; Status DC Pantoprazole Sodium (Protonix) 40 mg DAILYAC PO Last administered on 10/01/16 07:30; Start 09/17/16 at 10:02 Fentanyl Citrate (Fentanyl 2ml Vial) 25 mcg PRN Q5MIN PRN IV MILD PAIN; Start 09/18/16 at 07:00; Stop 09/19/16 at 06:59; Status DC Fentanyl Citrate 50 mcg 50 mcg PRN Q5MIN PRN IV MODERATE PAIN; Start 09/18/16 at 07:00; Stop 09/19/16 at 06:59; Status DC Lactated Ringer's (Iv Lactated Ringers) 1,000 ml @ 0 mls/hr Q0M IV ; Start 09/18 at 07:00; Stop 09/18/16 at 18:59; Status DC Lidocaine HCl 2 ml 1X PRN PRN ID IV START; Start 09/18/16 at 07:00; Stop at 06:59; Status DC Prochlorperazine Edisylate (Compazine) 5 mg PACU PRN PRN IV NAUSEA; Start at 07:00; Stop 09/19/16 at 06:59; Status DC Dextrose 25 gm 25 gm STK-MED ONCE IV Last administered on 09/18/16 08:19; Start 09/18/16 at 08:19; Stop 09/18/16 at 08:20; Status DC Propofol (Diprivan) 20 ml @ As Directed STK-MED ONCE IV ; Start 09/18/16 at 11:13 ; Stop 09/18/16 at 11:14; Status DC Lidocaine HCl 5 ml 5 ml STK-MED ONCE .ROUTE ; Start 09/18/16 at 11:13; Stop at 11:14; Status DC Sodium Chloride 1,000 ml @ 100 mls/hr 1X ONCE IV Last administered on 11:29; Start 09/18/16 at 11:30; Stop 09/18/16 at 21:29; Status DC Sodium Chloride (Iv Sodium Chloride 0.9% 1000ml Bag) 1,000 ml @ 1,000 mls/hr Q1H PRN IV hypotension; Start 09/18/16 at 13:47; Stop 09/18/16 at 19:46; Status DC Acetaminophen (Tylenol) 500 mg 1X PRN PRN PO MILD PAIN / TEMP; Start 09/18/16 at 14:00; Stop 09/19/16 at 13:59; Status DC Diphenhydramine HCl (Benadryl) 25 mg 1X PRN PRN IV ITCHING; Start 09/18/16 at 14 :00; Stop 09/19/16 at 13:59; Status DC Diphenhydramine HCl (Benadryl) 25 mg 1X PRN PRN IV ITCHING; Start 09/18/16 at 14 :00; Stop 09/19/16 at 13:59; Status DC Labetalol HCl 10 mg 10 mg PRN Q1HR PRN IVP SBP > 180; Start 09/18/16 at 14:00; Stop 09/19/16 at 13:59; Status DC Sodium Chloride (Iv Sodium Chloride 0.9% 1000ml Bag) 1,000 ml @ 400 mls/hr Q2H30M PRN IV PATENCY; Start 09/18/16 at 13:47; Stop 09/19/16 at 01:46; Status DC Info 1 each 1 each PRN DAILY PRN MC SEE COMMENTS; Start 09/18/16 at 14:00; Status UNV Sodium Chloride 1,000 ml @ 1,000 mls/hr Q1H PRN IV hypotension; Start 09/20/16 at 07:30; Stop 09/20/16 at 18:00; Status DC Albumin Human (Albuminar) 200 ml @ 200 mls/hr 1X PRN PRN IV Hypotension; Start 09/20/16 at 07:45; Stop 09/20/16 at 14:00; Status DC Acetaminophen (Tylenol) 500 mg 1X PRN PRN PO MILD PAIN / TEMP; Start 09/20/16 at 07:45; Stop 09/20/16 at 18:00; Status DC Diphenhydramine HCl (Benadryl) 25 mg 1X PRN PRN IV ITCHING; Start 09/20/16 at 07 :45; Stop 09/20/16 at 18:00; Status DC Diphenhydramine HCl (Benadryl) 25 mg 1X PRN PRN IV ITCHING; Start 09/20/16 at 07 :45; Stop 09/20/16 at 18:00; Status DC Sodium Chloride (Normal Saline Flush) 10 ml 1X PRN PRN IV AP catheter pack; Start 09/20/16 at 07:45; Stop 09/20/16 at 18:00; Status DC Sodium Chloride (Normal Saline Flush) 10 ml 1X PRN PRN IV HYDROELECTRIC POWER[employer] SUPERVISOR catheter pack; Start 09/20/16 at 07:45; Stop 09/20/16 at 18:00; Status DC Labetalol HCl 10 mg 10 mg PRN Q1HR PRN IVP SBP > 180; Start 09/20/16 at 07:45; Stop 09/20/16 at 18:00; Status DC Sodium Chloride (Iv Sodium Chloride 0.9% 1000ml Bag) 1,000 ml @ 400 mls/hr Q2H30M PRN IV PATENCY; Start 09/20/16 at 07:45; Stop 09/20/16 at 18:00; Status DC Info (PHARMACY MONITORING -- do not chart) 1 each PRN DAILY PRN MC SEE COMMENTS ; Start 09/20/16 at 07:45; Status UNV Warfarin Sodium (Coumadin Per Pharmacy) 1 each PRN DAILY PRN MC SEE COMMENTS Last administered on 09/30/16t 15:57; Start 09/20/16 at 14:30 Warfarin Sodium (Coumadin) 2 mg 1X WARF ONCE PO Last administered on 09/20/16 17:27; Start 09/20/16 at 17:14; Stop 09/20/16 at 17:15; Status DC Methylprednisolone Acetate (Depo-Medrol 80mg Vial) 80 mg 1X ONCE IM ; Start 09/20/16 at 17:30; Stop 09/20/16 at 17:33; Status DC Methylprednisolone Acetate (Depo-Medrol 40mg Vial) 40 mg 1X ONCE IM ; Start 09/20/16 at 17:30; Stop 09/20/16 at 17:33; Status DC Bupivacaine HCl (Sensorcaine-Mpf 0.25%) 10 ml 1X ONCE IJ ; Start 09/20/16 at 17: 30; Stop 09/20/16 at 17:33; Status DC Warfarin Sodium (Coumadin) 2 mg 1X WARF ONCE PO Last administered on 09/21/16 17:14; Start 09/21/16 at 16:00; Stop 09/21/16 at 16:01; Status DC Warfarin Sodium 3 mg 3 mg 1X WARF ONCE PO Last administered on 09/22/16 17:28 ; Start 09/22/16 at 16:00; Stop 09/22/16 at 16:01; Status DC Sodium Chloride (Iv Sodium Chloride 0.9% 1000ml Bag) 1,000 ml @ 1,000 mls/hr Q1H PRN IV hypotension; Start 09/23/16 at 14:18; Stop 09/23/16 at 21:00; Status DC Sodium Chloride (Normal Saline Flush) 10 ml 1X PRN PRN IV AP catheter pack; Start 09/23/16 at 14:30; Stop 09/23/16 at 21:00; Status DC Sodium Chloride (Normal Saline Flush) 10 ml 1X PRN PRN IV HYDROELECTRIC [employer]OWER[employer] SUPERVISOR catheter pack; Start 09/23/16 at 14:30; Stop 09/23/16 at 21:00; Status DC Info (PHARMACY MONITORING -- do not chart) 1 each PRN DAILY PRN MC SEE COMMENTS ; Start 09/23/16 at 14:30; Status UNV Info (PHARMACY MONITORING -- do not chart) 1 each PRN DAILY PRN MC SEE COMMENTS ; Start 09/23/16 at 14:30; Status UNV Warfarin Sodium (Coumadin) 3 mg 1X ONCE PO Last administered on 09/23/16 17:34 ; Start 09/23/16 at 17:00; Stop 09/23/16 at 17:01; Status DC Lidocaine/Sodium Bicarbonate (Buffered Lidocaine 1%) 20 ml STK-MED ONCE IJ ; Start 09/24/16 at 14:59; Stop 09/24/16 at 15:00; Status DC Fentanyl Citrate (Fentanyl 2ml Vial) 100 mcg STK-MED ONCE .ROUTE ; Start at 15:05; Stop 09/24/16 at 15:06; Status DC Midazolam HCl (Versed) 2 mg STK-MED ONCE .ROUTE ; Start 09/24/16 at 15:05; Stop 09/24/16 at 15:06; Status DC Lidocaine/Sodium Bicarbonate (Buffered Lidocaine 1%) 20 ml 1X ONCE IJ Last administered on 09/24/16 16:13; Start 09/24/16 at 16:15; Stop 09/24/16 at 16:16; Status DC Midazolam HCl (Versed) 2 mg 1X ONCE IV Last administered on 09/24/16 16:14; Start 09/24/16 at 16:15; Stop 09/24/16 at 16:16; Status DC Fentanyl Citrate (Fentanyl 2ml Vial) 100 mcg 1X ONCE IV Last administered on 16:15; Start 09/24/16 at 16:15; Stop 09/24/16 at 16:16; Status DC Warfarin Sodium 2 mg 2 mg 1X ONCE PO Last administered on 09/24/16 16:35; Start 09/24/16 at 17:00; Stop 09/24/16 at 17:01; Status DC Sodium Chloride 1,000 ml @ 1,000 mls/hr Q1H PRN IV hypotension; Start 09/25/16 at 08:38; Stop 09/25/16 at 14:37; Status DC Albumin Human (Albuminar) 200 ml @ 200 mls/hr 1X PRN PRN IV Hypotension; Start 09/25/16 at 08:45; Stop 09/25/16 at 14:44; Status DC Acetaminophen (Tylenol) 500 mg 1X PRN PRN PO MILD PAIN / TEMP; Start 09/25/16 at 08:45; Stop 09/26/16 at 08:44; Status DC Diphenhydramine HCl (Benadryl) 25 mg 1X PRN PRN IV ITCHING; Start 09/25/16 at 08 :45; Stop 09/26/16 at 08:44; Status DC Info (PHARMACY MONITORING -- do not chart) 1 each PRN DAILY PRN MC SEE COMMENTS ; Start 09/25/16 at 08:45; Status UNV Vancomycin HCl 1 each 1 each PRN DAILY PRN MC SEE COMMENTS Last administered on 09/30/16 15:58; Start 09/25/16 at 09:15 Piperacillin Sod/ Tazobactam Sod 2.25 gm/Sodium Chloride 50 ml @ 100 mls/hr Q6HRS IV Last administered on 10/01/16 05:44; Start 09/25/16 at 10:00 Vancomycin HCl/ Sodium Chloride (Iv Sodium Chloride 0.9% 500ml Bag) 500 ml @ 250 mls/hr ONCE ONCE IV Last administered on 09/25/16 13:32; Start 09/25/16 at 10:00; Stop 09/25/16 at 11:59; Status DC Warfarin Sodium (Coumadin) 4 mg 1X WARF ONCE PO ; Start 09/25/16 at 16:00; Stop 09/25/16 at 16:00; Status DC Warfarin Sodium 3 mg 3 mg 1X WARF ONCE PO Last administered on 09/25/16 16:00 ; Start 09/25/16 at 16:00; Stop 09/25/16 at 16:01; Status DC Magnesium Sulfate/ Dextrose (Magnesium Sulfate PREMIX 2GM) 50 ml @ 25 mls/hr PRN DAILY PRN IV for Mag < 1.7 on am labs Last administered on 09/28/16 18:18 ; Start 09/26/16 at 11:15 Darbepoetin Ernst (Aranesp) 100 mcg Th SQ Last administered on 09/26/16 20:40; Start 09/26/16 at 21:00 Amlodipine Besylate (Norvasc) 2.5 mg DAILY PO Last administered on 09/26/16 12: 21; Start 09/26/16 at 11:00; Stop 09/26/16 at 14:02; Status DC Amlodipine Besylate (Norvasc) 5 mg DAILY PO Last administered on 10/01/16 08: 16; Start 09/27/16 at 09:00 Warfarin Sodium (Coumadin) 5 mg 1X WARF ONCE PO Last administered on 09/26/16 16:15; Start 09/26/16 at 16:00; Stop 09/26/16 at 16:01; Status DC Vancomycin HCl 1 each 1 each 1X ONCE MC ; Start 09/27/16 at 16:00; Stop at 16:01; Status DC Sodium Chloride 1,000 ml @ 1,000 mls/hr Q1H PRN IV hypotension; Start 09/27/16 at 09:47; Stop 09/27/16 at 15:46; Status DC Albumin Human (Albuminar) 200 ml @ 200 mls/hr 1X PRN PRN IV Hypotension; Start 09/27/16 at 10:00; Stop 09/27/16 at 15:59; Status DC Acetaminophen (Tylenol) 500 mg 1X PRN PRN PO MILD PAIN / TEMP; Start 09/27/16 at 10:00; Stop 09/28/16 at 09:59; Status DC Diphenhydramine HCl (Benadryl) 25 mg 1X PRN PRN IV ITCHING; Start 09/27/16 at 10:00; Stop 09/28/16 at 09:59; Status DC Diphenhydramine HCl (Benadryl) 25 mg 1X PRN PRN IV ITCHING; Start 09/27/16 at 10:00; Stop 09/28/16 at 09:59; Status DC Labetalol HCl 10 mg 10 mg PRN Q1HR PRN IVP SBP > 180; Start 09/27/16 at 10:00; Stop 09/28/16 at 09:59; Status DC Sodium Chloride (Iv Sodium Chloride 0.9% 1000ml Bag) 1,000 ml @ 400 mls/hr Q2H30M PRN IV PATENCY; Start 09/27/16 at 09:47; Stop 09/27/16 at 21:46; Status DC Info (PHARMACY MONITORING -- do not chart) 1 each PRN DAILY PRN MC SEE COMMENTS ; Start 09/27/16 at 10:00; Status UNV Warfarin Sodium 5 mg 5 mg 1X WARF ONCE PO Last administered on 09/27/16 17:11 ; Start 09/27/16 at 16:00; Stop 09/27/16 at 16:01; Status DC Vancomycin HCl/ Sodium Chloride (Iv Sodium Chloride 0.9% 250ml) 250 ml @ 250 mls/hr ONCE ONCE IV Last administered on 09/27/16 21:15; Start 09/27/16 at 20 :10; Stop 09/27/16 at 21:09; Status DC Potassium Chloride (Klor-Con) 40 meq 1X ONCE PO Last administered on 12:04; Start 09/28/16 at 12:30; Stop 09/28/16 at 12:31; Status DC Warfarin Sodium (Coumadin) 4 mg 1X WARF ONCE PO Last administered on 15:32; Start 09/28/16 at 16:00; Stop 09/28/16 at 16:01; Status DC Warfarin Sodium 4 mg 4 mg 1X WARF ONCE PO Last administered on 09/29/16 17:06 ; Start 09/29/16 at 16:00; Stop 09/29/16 at 16:01; Status DC Vancomycin HCl 500 mg/Sodium Chloride 100 ml @ 100 mls/hr QMWF IV Last administered on 09/30/16t 15:47; Start 09/30/16 at 16:00 Sodium Chloride (Iv Sodium Chloride 0.9% 1000ml Bag) 1,000 ml @ 1,000 mls/hr Q1H PRN IV hypotension; Start 09/30/16 at 08:00; Stop 09/30/16 at 13:59; Status DC Acetaminophen (Tylenol) 500 mg 1X PRN PRN PO MILD PAIN / TEMP; Start 09/30/16 at 09:00; Stop 10/01/16 at 08:59; Status DC Diphenhydramine HCl (Benadryl) 25 mg 1X PRN PRN IV ITCHING; Start 09/30/16 at 09:00; Stop 10/01/16 at 08:59; Status DC Diphenhydramine HCl 25 mg 25 mg 1X PRN PRN IV ITCHING; Start 09/30/16 at 09:00 ; Stop 10/01/16 at 08:59; Status DC Sodium Chloride (Iv Sodium Chloride 0.9% 1000ml Bag) 1,000 ml @ 400 mls/hr Q2H30M PRN IV PATENCY; Start 09/30/16 at 08:00; Stop 09/30/16 at 19:59; Status DC Info (PHARMACY MONITORING -- do not chart) 1 each PRN DAILY PRN MC SEE COMMENTS ; Start 09/30/16 at 09:00 Warfarin Sodium (Coumadin) 4 mg 1X WARF ONCE PO Last administered on 17:12; Start 09/30/16 at 16:00; Stop 09/30/16 at 16:01; Status DC Active Scripts Active Reported [Mylanta] Tylenol (Acetaminophen) 325 Mg Tablet 1 Tab PO PRN Q4HRS Fleet Enema (Na Phos,M-B/Na Phos,Di-Ba) 133 Ml Enema 1 Each RC ONCE Dulcolax (Bisacodyl) 10 Mg Supp.rect 10 Mg RC PRN DAILY PRN Zofran Odt (Ondansetron) 8 Mg Tab.rapdis 1 Tab PO PRN Q8HRS PRN Nitrostat (Nitroglycerin) 0.4 Mg Tab.subl 1 Tab SL UD Cyclobenzaprine Hcl 10 Mg Tablet 1 Tab PO TID Zepatier 50-100 mg Tablet (Elbasvir/Grazoprevir) 1 Each Tablet 1 Each PO [PhosLo] Coreg (Carvedilol) 25 Mg Tablet 1 Tab PO BID Aspirin 81 Mg Tab.chew 1 Tab PO DAILY Allopurinol 100 Mg Tablet 1 Tab PO DAILY Ventolin Hfa Inhaler (Albuterol Sulfate) 18 Gm Hfa.aer.ad 2 Puff INH Q4HRS Nephplex Rx Tablet (Vit B Cmplx No3/Fa/C/Biot/Zinc) 1 Each Tablet 1 Each PO Senokot (Sennosides) 8.6 Mg Tablet 1 Tab PO BID Oxycontin (Oxycodone HCl) 10 Mg Tab.er.12h 10 Mg PO BID Glycolax (Polyethylene Glycol 3350) 119 Gm Powder 17 Gm PO UD Percocet 10-325 Mg Tablet (Oxycodone/Acetaminophen) 1 Each Tablet 1 Tab PO Q4- 6HRS Vitamin D3 (Cholecalciferol (Vitamin D3)) 1,000 Unit Tablet 1 Tab PO DAILY Advair 250-50 Diskus (Fluticasone/Salmeterol) 1 Each Disk.w.dev 1 Puff IH BID Ipratropium [place] 0.2 Mg/1 Ml Solution 1 Vial NEB QID Lidoderm (Lidocaine) 700 Mg Adh..patch 1 Patch TP DAILY Nortriptyline Hcl 25 Mg Capsule 1 Cap PO QHS Warfarin Sodium 2 Mg Tablet 1.5 Mg PO DAILY Gabapentin 300 Mg Capsule 300 Mg PO TID Zoloft (Sertraline Hcl) 100 Mg Tablet 1 Tab PO DAILY Vitals/I & O Vital Sign - Last 24 Hours 09/30/16 09/30/16 09/30/16 09/30/16 11:33 12:57 12:57 12:58 Pulse 94 94 B/P 161/92 161/92 Pulse Ox 91 O2 Delivery Room Air Room Air O2 Flow Rate 97.0 09/30/16 09/30/16 09/30/16 09/30/16 14:52 15:43 16:43 16:43 Temp 97.7 97.7 Pulse 94 Resp 18 B/P 198/88 Pulse Ox 99 O2 Delivery Room Air Room Air O2 Flow Rate 97.0 97.0 09/30/16 09/30/16 09/30/16 09/30/16 17:03 17:12 19:00 19:25 Temp 98.4 98.4 Pulse 94 82 Resp 20 B/P 198/88 151/88 Pulse Ox 99 100 O2 Delivery Room Air Room Air 09/30/16 09/30/16 09/30/16 09/30/16 19:29 20:00 20:36 23:00 Temp 97.9 97.9 Pulse 79 Resp 18 18 B/P 164/82 Pulse Ox 100 100 97 O2 Delivery Room Air Room Air Room Air 10/01/16 10/01/16 10/01/16 10/01/16 00:45 03:00 03:15 04:32 Temp 98.0 98.0 Pulse 82 Resp 17 18 16 18 B/P 164/81 Pulse Ox 100 97 100 97 O2 Delivery Room Air Room Air Room Air 10/01/16 10/01/16 10/01/16 10/01/16 04:47 07:00 07:39 08:00 Temp 97.7 97.7 Pulse 85 85 Resp 18 B/P 175/72 175/72 Pulse Ox 98 96 O2 Delivery Room Air Room Air Room Air 10/01/16 10/01/16 10/01/16 08:15 08:16 08:16 Pulse 85 B/P 175/72 O2 Delivery Room Air Room Air O2 Flow Rate 97.0 Intake and Output 09/30/16 09/30/16 10/01/16 15:00 23:00 07:00 Intake Total 360 ml 860 ml Output Total 1 ml Balance 360 ml 860 ml -1 ml JESUS JOHNSON APRN Oct 01, 2016 10:37
[2016-10-01 10:52] VITALS: BP 157/90
--- NOTE | 2016-10-01 11:22 | PDOC ---
Subjective: Subjective: No GI complaints. No bleeding. Objective: Objective: Per RN - no GI concerns. DC today. 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 Continue PPI. JORGE YANG Oct 01, 2016 11:22
--- NOTE | 2016-10-01 11:32 | PDOC ---
Renal-Progress Notes Subjective Notes Notes NOTHING NEW History of Present Illness Hx of present illness NO CHANGES Vitals Vitals Vital Signs Date Time Temp Pulse Resp B/P Pulse Ox O2 Delivery O2 Flow Rate FiO2 10/01/16 11:28 Room Air 10/01/16 10:52 97.7 77 18 157/90 97 97.7 10/01/16 08:15 97.0 Weight Weight [ ] I.O. Intake and Output Intake and Output 10/01/16 07:00 Intake Total 1220 ml Output Total 1 ml Balance 1219 ml Intake Oral 1220 ml Output Urine Total 1 ml # Voids 2 # Bowel Movements 2 Labs Labs Laboratory Tests Test 09/30/16 16:03 09/30/16 20:39 10/01/16 03:25 10/01/16 07:16 Glucose (Fingerstick) 91mg/dL (70-99) 117mg/dL (70-99) 108mg/dL (70-99) White Blood Count 9.8x10^3/uL (4.0-11.0) Red Blood Count 2.61x10^6/uL (3.50-5.40) Hemoglobin 7.3g/dL (12.0-15.5) Hematocrit 22.6% (36.0-47.0) Mean Corpuscular Volume 86fL (79-100) Mean Corpuscular Hemoglobin 28pg (25-35) Mean Corpuscular Hemoglobin Concent 32g/dL (31-37) Red Cell Distribution Width 18.2% (11.5-14.5) Platelet Count 236x10^3/uL (140-400) Neutrophils (%) (Auto) 69% (31-73) Lymphocytes (%) (Auto) 19% (24-48) Monocytes (%) (Auto) 9% (0-9) Eosinophils (%) (Auto) 2% (0-3) Basophils (%) (Auto) 0% (0-3) Neutrophils # (Auto) 6.8x10^3uL (1.8-7.7) Lymphocytes # (Auto) 1.9x10^3/uL (1.0-4.8) Monocytes # (Auto) 0.9x10^3/uL (0.0-1.1) Eosinophils # (Auto) 0.2x10^3/uL (0.0-0.7) Basophils # (Auto) 0.0x10^3/uL (0.0-0.2) Prothrombin Time 23.3SEC (11.7-14.0) Prothromb Time International Ratio 2.2 (0.8-1.1) Sodium Level 138mmol/L (136-145) Potassium Level 3.5mmol/L (3.5-5.1) Chloride Level 101mmol/L (98-107) Carbon Dioxide Level 29mmol/L (21-32) Anion Gap 8 (6-14) Blood Urea Nitrogen 14mg/dL (7-20) Creatinine 2.5mg/dL (0.6-1.0) Estimated GFR (Cockcroft-Gault) 23.8 Glucose Level 125mg/dL (70-99) Calcium Level 8.4mg/dL (8.5-10.1) Phosphorus Level 2.0mg/dL (2.6-4.7) Magnesium Level 1.8mg/dL (1.8-2.4) Albumin 1.7g/dL (3.4-5.0) Test 10/01/16 10:19 Glucose (Fingerstick) 106mg/dL (70-99) Micro Micro Microbiology 09/24/16 Blood Culture - Final, Complete NO GROWTH AFTER 5 DAYS 09/24/16 Anaerobic/Aerobic Culture - Final, Complete 09/24/16 Anaerobic Culture Result 1 (CONNOR) - Final, Complete 09/24/16 Aerobic Culture - Final, Complete 09/24/16 Aerobic Culture Result 1 (CONNOR) - Final, Complete Review of Systems Constitutional: yes: alert, oriented, weakness Ears/Nose/Throat: Yes: no symptom reported Gastrointestional: Yes: melena Genitourinary: Yes: no symptom reported Skin: Yes no symptom reported Physical Exam General Appearance: no apparent distress Skin: warm Respiratory: bilateral CTA Heart: S1S2 Abdomen: soft, bowel sounds present Extremities: pulses present Neurology: alert, oriented Assessment Assessment IMP ANEMIA GI BLEED ESRD GASTRITIS RIGHT RENAL CYST-COMPLICATED DISKITIS PLAN HD [facility] AND ANTIBIOTICS WILL NEED OP F/U OF RENAL CYST IN ABOUT 6 MONTHS SERVANDO PATTERSON MD Oct 01, 2016 11:32
--- NOTE | 2016-10-01 12:09 | PDOC ---
PROGRESS NOTES Chief Complaint Chief Complaint Anemia History of Present Illness History of Present Illness No acute events overnight. She is feeling better and wishes to be discharged to rehab. She plans to go to the [facility] upon discharge. MRI was reviewed by neuro surgery and they agree to antibiotics and outpatient follow up. Vitals Vitals Vital Signs Date Time Temp Pulse Resp B/P Pulse Ox O2 Delivery O2 Flow Rate FiO2 10/01/16 11:28 Room Air 10/01/16 10:52 97.7 77 18 157/90 97 97.7 10/01/16 08:15 97.0 Physical Exam General: Alert, Cooperative, No acute distress Heart: Regular rate, Normal S1, Normal S2, No murmurs Lungs: Clear Abdomen: Soft, No tenderness Extremities: No cyanosis, No edema Skin: No breakdown, No significant lesion Labs LABS Laboratory Tests Test 09/30/16 16:03 09/30/16 20:39 10/01/16 03:25 10/01/16 07:16 Glucose (Fingerstick) 91mg/dL (70-99) 117mg/dL (70-99) 108mg/dL (70-99) White Blood Count 9.8x10^3/uL (4.0-11.0) Red Blood Count 2.61x10^6/uL (3.50-5.40) Hemoglobin 7.3g/dL (12.0-15.5) Hematocrit 22.6% (36.0-47.0) Mean Corpuscular Volume 86fL (79-100) Mean Corpuscular Hemoglobin 28pg (25-35) Mean Corpuscular Hemoglobin Concent 32g/dL (31-37) Red Cell Distribution Width 18.2% (11.5-14.5) Platelet Count 236x10^3/uL (140-400) Neutrophils (%) (Auto) 69% (31-73) Lymphocytes (%) (Auto) 19% (24-48) Monocytes (%) (Auto) 9% (0-9) Eosinophils (%) (Auto) 2% (0-3) Basophils (%) (Auto) 0% (0-3) Neutrophils # (Auto) 6.8x10^3uL (1.8-7.7) Lymphocytes # (Auto) 1.9x10^3/uL (1.0-4.8) Monocytes # (Auto) 0.9x10^3/uL (0.0-1.1) Eosinophils # (Auto) 0.2x10^3/uL (0.0-0.7) Basophils # (Auto) 0.0x10^3/uL (0.0-0.2) Prothrombin Time 23.3SEC (11.7-14.0) Prothromb Time International Ratio 2.2 (0.8-1.1) Sodium Level 138mmol/L (136-145) Potassium Level 3.5mmol/L (3.5-5.1) Chloride Level 101mmol/L (98-107) Carbon Dioxide Level 29mmol/L (21-32) Anion Gap 8 (6-14) Blood Urea Nitrogen 14mg/dL (7-20) Creatinine 2.5mg/dL (0.6-1.0) Estimated GFR (Cockcroft-Gault) 23.8 Glucose Level 125mg/dL (70-99) Calcium Level 8.4mg/dL (8.5-10.1) Phosphorus Level 2.0mg/dL (2.6-4.7) Magnesium Level 1.8mg/dL (1.8-2.4) Albumin 1.7g/dL (3.4-5.0) Test 10/01/16 10:19 Glucose (Fingerstick) 106mg/dL (70-99) Review of Systems Review of Systems Denies chest pain and shortness of breath. Denies fever or chills. Mild back pain, chronic. Assessment and Plan Assessmemt and Plan Problems Medical Problems: (1) Anemia Status: Acute (2) Coagulopathy Status: Acute (3) Coumadin toxicity Status: Acute (4) Elevated INR (international normalized ratio) due to prior anticoagulant medication ingestion Status: Acute (5) ESRD on dialysis Status: Acute (6) GI bleed Status: Acute 1. Acute blood loss anemia, GI bleed, s/p EGD 2. ESRD, on HD MWF 3. Coumadin coagulopathy, 4. Hypertension, controlled 5. History of asthma 6. Obesity 7. Back pain with possible discitis 8. A fib on Coumadin 9. SNU resident 10. RCC vs renal complex cyst - NEW 11. Discitis vs OM - back -NEW 12. Right renal cysts 13. Hypomagnesemia PLAN: Neurosurgery reviewed MRI and recommends antibiotics per ID and discharge to rehab ID, Renal, Urology and GI consulted, their recommendations are appreciated Continue antibiotic therapy as per ID Continue Hemodialysis On Coumadin, continue to monitor INR daily Continue to monitor daily labs PT/OT eval and treat Probable discharge to SNF ([facility] care center) today. Problems: Comment Review of Relevant I have reviewed the following items christi (where applicable) has been applied. Labs Laboratory Tests Test 09/29/16 15:27 09/29/16 20:45 09/30/16 05:30 09/30/16 05:50 Glucose (Fingerstick) 113mg/dL (70-99) 137mg/dL (70-99) Prothrombin Time 22.4SEC (11.7-14.0) Prothromb Time International Ratio 2.1 (0.8-1.1) Sodium Level 138mmol/L (136-145) Potassium Level 3.8mmol/L (3.5-5.1) Chloride Level 102mmol/L (98-107) Carbon Dioxide Level 26mmol/L (21-32) Anion Gap 10 (6-14) Blood Urea Nitrogen 24mg/dL (7-20) Creatinine 3.7mg/dL (0.6-1.0) Estimated GFR (Cockcroft-Gault) 15.1 Glucose Level 108mg/dL (70-99) Calcium Level 8.3mg/dL (8.5-10.1) Phosphorus Level 2.4mg/dL (2.6-4.7) Magnesium Level 2.1mg/dL (1.8-2.4) Albumin 1.7g/dL (3.4-5.0) Test 09/30/16 07:17 09/30/16 16:03 09/30/16 20:39 10/01/16 03:25 Glucose (Fingerstick) 103mg/dL (70-99) 91mg/dL (70-99) 117mg/dL (70-99) White Blood Count 9.8x10^3/uL (4.0-11.0) Red Blood Count 2.61x10^6/uL (3.50-5.40) Hemoglobin 7.3g/dL (12.0-15.5) Hematocrit 22.6% (36.0-47.0) Mean Corpuscular Volume 86fL (79-100) Mean Corpuscular Hemoglobin 28pg (25-35) Mean Corpuscular Hemoglobin Concent 32g/dL (31-37) Red Cell Distribution Width 18.2% (11.5-14.5) Platelet Count 236x10^3/uL (140-400) Neutrophils (%) (Auto) 69% (31-73) Lymphocytes (%) (Auto) 19% (24-48) Monocytes (%) (Auto) 9% (0-9) Eosinophils (%) (Auto) 2% (0-3) Basophils (%) (Auto) 0% (0-3) Neutrophils # (Auto) 6.8x10^3uL (1.8-7.7) Lymphocytes # (Auto) 1.9x10^3/uL (1.0-4.8) Monocytes # (Auto) 0.9x10^3/uL (0.0-1.1) Eosinophils # (Auto) 0.2x10^3/uL (0.0-0.7) Basophils # (Auto) 0.0x10^3/uL (0.0-0.2) Prothrombin Time 23.3SEC (11.7-14.0) Prothromb Time International Ratio 2.2 (0.8-1.1) Sodium Level 138mmol/L (136-145) Potassium Level 3.5mmol/L (3.5-5.1) Chloride Level 101mmol/L (98-107) Carbon Dioxide Level 29mmol/L (21-32) Anion Gap 8 (6-14) Blood Urea Nitrogen 14mg/dL (7-20) Creatinine 2.5mg/dL (0.6-1.0) Estimated GFR (Cockcroft-Gault) 23.8 Glucose Level 125mg/dL (70-99) Calcium Level 8.4mg/dL (8.5-10.1) Phosphorus Level 2.0mg/dL (2.6-4.7) Magnesium Level 1.8mg/dL (1.8-2.4) Albumin 1.7g/dL (3.4-5.0) Test 10/01/16 07:16 10/01/16 10:19 Glucose (Fingerstick) 108mg/dL (70-99) 106mg/dL (70-99) Laboratory Tests Test 09/30/16 16:03 09/30/16 20:39 10/01/16 03:25 10/01/16 07:16 Glucose (Fingerstick) 91mg/dL (70-99) 117mg/dL (70-99) 108mg/dL (70-99) White Blood Count 9.8x10^3/uL (4.0-11.0) Red Blood Count 2.61x10^6/uL (3.50-5.40) Hemoglobin 7.3g/dL (12.0-15.5) Hematocrit 22.6% (36.0-47.0) Mean Corpuscular Volume 86fL (79-100) Mean Corpuscular Hemoglobin 28pg (25-35) Mean Corpuscular Hemoglobin Concent 32g/dL (31-37) Red Cell Distribution Width 18.2% (11.5-14.5) Platelet Count 236x10^3/uL (140-400) Neutrophils (%) (Auto) 69% (31-73) Lymphocytes (%) (Auto) 19% (24-48) Monocytes (%) (Auto) 9% (0-9) Eosinophils (%) (Auto) 2% (0-3) Basophils (%) (Auto) 0% (0-3) Neutrophils # (Auto) 6.8x10^3uL (1.8-7.7) Lymphocytes # (Auto) 1.9x10^3/uL (1.0-4.8) Monocytes # (Auto) 0.9x10^3/uL (0.0-1.1) Eosinophils # (Auto) 0.2x10^3/uL (0.0-0.7) Basophils # (Auto) 0.0x10^3/uL (0.0-0.2) Prothrombin Time 23.3SEC (11.7-14.0) Prothromb Time International Ratio 2.2 (0.8-1.1) Sodium Level 138mmol/L (136-145) Potassium Level 3.5mmol/L (3.5-5.1) Chloride Level 101mmol/L (98-107) Carbon Dioxide Level 29mmol/L (21-32) Anion Gap 8 (6-14) Blood Urea Nitrogen 14mg/dL (7-20) Creatinine 2.5mg/dL (0.6-1.0) Estimated GFR (Cockcroft-Gault) 23.8 Glucose Level 125mg/dL (70-99) Calcium Level 8.4mg/dL (8.5-10.1) Phosphorus Level 2.0mg/dL (2.6-4.7) Magnesium Level 1.8mg/dL (1.8-2.4) Albumin 1.7g/dL (3.4-5.0) Test 10/01/16 10:19 Glucose (Fingerstick) 106mg/dL (70-99) Microbiology 09/24/16 Blood Culture - Final, Complete NO GROWTH AFTER 5 DAYS 09/24/16 Anaerobic/Aerobic Culture - Final, Complete 09/24/16 Anaerobic Culture Result 1 (CONNOR) - Final, Complete 09/24/16 Aerobic Culture - Final, Complete 09/24/16 Aerobic Culture Result 1 (CONNOR) - Final, Complete Medications Current Medications Oxycodone/ Acetaminophen (Percocet 5/325) 1 tab 1X ONCE PO ; Start 09/09/16 at 19:00; Stop 09/09/16 at 19:01; Status DC Hydromorphone HCl 1 mg 1 mg 1X ONCE IV Last administered on 09/09/16 19:21; Start 09/09/16 at 19:15; Stop 09/09/16 at 19:16; Status DC Pantoprazole Sodium/Sodium Chloride (Protonix Iv/Iv Sodium Chloride 0.9% 100ml) 100 ml @ 10 mls/hr 1X ONCE IV Last administered on 09/09/16 19:51; Start at 19:30; Stop 09/10/16 at 05:29; Status DC Ondansetron HCl 4 mg 4 mg PRN Q8HRS PRN IV NAUSEA/VOMITING Last administered on 09/09/16 19:51; Start 09/09/16 at 19:30; Stop 09/10/16 at 19:29; Status DC Sodium Chloride (Iv Sodium Chloride 0.9% 1000ml Bag) 1,000 ml @ 100 mls/hr Q10H IV Last administered on 09/09/16 19:51; Start 09/09/16 at 19:30; Stop at 06:00; Status DC Acetaminophen (Tylenol) 650 mg PRN Q4HRS PRN PO FEVER Last administered on 09/09 19:52; Start 09/09/16 at 19:30; Stop 09/10/16 at 19:29; Status DC Multi-Ingredient Mouthwash/Gargle 15 ml 15 ml 1X ONCE SWSW Last administered on 09/09/16 23:41; Start 09/09/16 at 23:30; Stop 09/09/16 at 23:31; Status DC Phytonadione/ Sodium Chloride (Vitamin K/Iv Sodium Chloride 0.9% 50ml) 51 ml @ 102 mls/hr 1X ONCE IV Last administered on 09/10/16 02:07; Start 09/10/16 at 00:00; Stop 09/10/16 at 00:29; Status DC Acetaminophen (Tylenol) 325 mg PRN Q4HRS PO ; Start 09/09/16 at 23:30; Stop at 23:30; Status DC Allopurinol (Zyloprim) 100 mg DAILY PO Last administered on 10/01/16 08:16; Start 09/10/16 at 09:00 Bisacodyl (Dulcolax Supp) 10 mg PRN DAILY PRN RC CONSTIPATION; Start 09/09/16 at 23:30 Cyclobenzaprine HCl (Flexeril) 10 mg PRN TID PRN PO back pain Last administered on 10/01/16 00:14; Start 09/09/16 at 23:30 Gabapentin (Neurontin) 300 mg DAILY PO Last administered on 10/01/16 08:16; Start 09/10/16 at 09:00 Ipratropium [place] (Atrovent) 0.2 mg QID NEB ; Start 09/10/16 at 09:00; Status UNV Lidocaine (Lidoderm) 1 patch DAILY TP Last administered on 10/01/16 08:16; Start 09/10/16 at 09:00 Nortriptyline HCl (Pamelor) 25 mg QHS PO Last administered on 09/30/16 20:36; Start 09/10/16 at 21:00 Oxycodone HCl (Oxycontin) 10 mg BID PO Last administered on 10/01/16 08:16; Start 09/10/16 at 09:00 Oxycodone/ Acetaminophen (Percocet 10/325) 1 tab PRN Q4HRS PRN PO SEVERE PAIN Last administered on 10/01/16 03:15; Start 09/09/16 at 23:30 Non-Formulary Medication 2 puff Q4HRS INH FOR ASTHMA; Start 09/10/16 at 00:00; Status UNV Carvedilol (Coreg) 25 mg BIDWMEALS PO Last administered on 10/01/16 08:00; Start 09/10/16 at 08:00 Non-Formulary Medication 1 puff BID IH ; Start 09/10/16 at 09:00; Status UNV Ondansetron HCl (Zofran Odt) 8 mg Q8HRS PO Last administered on 09/30/16 05:52 ; Start 09/10/16 at 06:00 Sertraline HCl (Zoloft) 100 mg DAILY PO Last administered on 10/01/16 08:16; Start 09/10/16 at 09:00 Labetalol HCl (Normodyne) 20 mg PRN Q2HR PRN IVP HYPERTENSION, SEE COMMENTS Last administered on 09/25/16 05:47; Start 09/09/16 at 23:30 Albuterol/ Ipratropium (Duoneb) 3 ml RTQID NEB Last administered on 10/01/16 11:27; Start 09/10/16 at 08:00 Budesonide (Pulmicort) 0.5 mg RTBID NEB Last administered on 10/01/16 07:37; Start 09/10/16 at 08:00 Albuterol Sulfate 2.5 mg 2.5 mg PRN Q4HRS PRN NEB SHORTNESS OF BREATH Last administered on 10/01/16 04:46; Start 09/09/16 at 23:30 Pantoprazole Sodium 80 mg/ Sodium Chloride 100 ml @ 10 mls/hr Q10H IV Last administered on 09/13/16 07:51; Start 09/10/16 at 10:00; Stop 09/13/16 at 09:59 ; Status DC Magnesium Sulfate/ Dextrose 50 ml @ 25 mls/hr PRN DAILY PRN IV for Mag < 1.7 on am labs; Start 09/10/16 at 10:00; Stop 09/22/16 at 11:36; Status DC Sodium Chloride (Iv Sodium Chloride 0.9% 1000ml Bag) 1,000 ml @ 1,000 mls/hr Q1H PRN IV hypotension; Start 09/11/16 at 08:50; Stop 09/11/16 at 14:49; Status DC Diphenhydramine HCl (Benadryl) 25 mg 1X PRN PRN IV ITCHING; Start 09/11/16 at 09:00; Stop 09/12/16 at 08:59; Status DC Diphenhydramine HCl (Benadryl) 25 mg 1X PRN PRN IV ITCHING; Start 09/11/16 at 09:00; Stop 09/12/16 at 08:59; Status DC Sodium Chloride (Normal Saline Flush) 10 ml 1X PRN PRN IV AP catheter pack; Start 09/11/16 at 09:00; Stop 09/12/16 at 08:59; Status DC Sodium Chloride (Normal Saline Flush) 10 ml 1X PRN PRN IV CRYSTAL REPORT DEVELOPER catheter pack; Start 09/11/16 at 09:00; Stop 09/12/16 at 08:59; Status DC Labetalol HCl 10 mg 10 mg PRN Q1HR PRN IVP SBP > 180; Start 09/11/16 at 09:00; Stop 09/12/16 at 08:59; Status DC Sodium Chloride (Iv Sodium Chloride 0.9% 1000ml Bag) 1,000 ml @ 400 mls/hr Q2H30M PRN IV PATENCY; Start 09/11/16 at 08:50; Stop 09/11/16 at 20:49; Status DC Info (PHARMACY MONITORING -- do not chart) 1 each PRN DAILY PRN MC SEE COMMENTS ; Start 09/11/16 at 09:00; Stop 09/30/16 at 14:09; Status DC Info (PHARMACY MONITORING -- do not chart) 1 each PRN DAILY PRN MC SEE COMMENTS ; Start 09/11/16 at 09:00; Status UNV Sodium Cl/Sod Bicarb/Potass Cl/ PEG (Golytely) 4,000 ml 1X ONCE PO Last administered on 09/11/16t 17:13; Start 09/11/16 at 13:00; Stop 09/11/16 at 13:01 ; Status DC Fentanyl Citrate (Fentanyl 2ml Vial) 25 mcg PRN Q5MIN PRN IV MILD PAIN; Start 09/12/16 at 07:00; Stop 09/13/16 at 06:59; Status DC Fentanyl Citrate 50 mcg 50 mcg PRN Q5MIN PRN IV MODERATE PAIN; Start 09/12/16 at 07:00; Stop 09/13/16 at 06:59; Status DC Lactated Ringer's (Iv Lactated Ringers) 1,000 ml @ 0 mls/hr Q0M IV ; Start at 07:00; Stop 09/12/16 at 18:59; Status DC Lidocaine HCl 2 ml 1X PRN PRN ID IV START; Start 09/12/16 at 07:00; Stop at 06:59; Status DC Prochlorperazine Edisylate (Compazine) 5 mg PACU PRN PRN IV NAUSEA; Start 09/12 at 07:00; Stop 09/13/16 at 06:59; Status DC Pantoprazole Sodium 40 mg 40 mg DAILYAC IVP ; Start 09/13/16 at 07:30; Status UNV Magnesium Sulfate/ Dextrose 50 ml @ 25 mls/hr 1X ONCE IV ; Start 09/12/16 at 11 :30; Stop 09/12/16 at 13:29; Status DC Propofol 0 ml @ As Directed STK-MED ONCE IV ; Start 09/12/16 at 12:55; Stop at 12:56; Status DC Propofol (Diprivan) 20 ml @ As Directed STK-MED ONCE IV ; Start 09/12/16 at 12: 55; Stop 09/12/16 at 12:56; Status Cancel Lidocaine HCl (Lidocaine Pf 2% Vial) 5 ml STK-MED ONCE .ROUTE ; Start 09/12/16 at 12:55; Stop 09/12/16 at 12:56; Status DC Lorazepam (Ativan) 2 mg PRN Q4HRS PRN IV ANXIETY / AGITATION Last administered on 09/26/16t 03:00; Start 09/12/16 at 14:15 Lorazepam (Ativan) 2 mg Q4HRS PRN IV ANXIETY / AGITATION; Start 09/12/16 at 14: 15; Status UNV Haloperidol Lactate (Haldol) 2.5 mg PRN Q6HRS PRN IM AGITATION; Start 09/12/16 at 14:15; Stop 09/26/16 at 14:02; Status DC Haloperidol Lactate (Haldol) 2.5 mg PRN Q6HRS PRN IVP AGITATION; Start at 14:15; Stop 09/26/16 at 14:02; Status DC Lorazepam 2 mg 2 mg PRN Q4HRS PRN IM ANXIETY / AGITATION; Start 09/12/16 at 14: 30; Stop 09/17/16 at 14:37; Status DC Sodium Chloride (Iv Sodium Chloride 0.9% 1000ml Bag) 1,000 ml @ 1,000 mls/hr Q1H PRN IV hypotension; Start 09/13/16 at 08:39; Stop 09/13/16 at 14:38; Status DC Diphenhydramine HCl (Benadryl) 25 mg 1X PRN PRN IV ITCHING; Start 09/13/16 at 08:45; Stop 09/14/16 at 08:44; Status DC Diphenhydramine HCl (Benadryl) 25 mg 1X PRN PRN IV ITCHING; Start 09/13/16 at 08:45; Stop 09/14/16 at 08:44; Status DC Sodium Chloride (Normal Saline Flush) 10 ml 1X PRN PRN IV AP catheter pack; Start 09/13/16 at 08:45; Stop 09/14/16 at 08:44; Status DC Sodium Chloride (Normal Saline Flush) 10 ml 1X PRN PRN IV CRYSTAL REPORT DEVELOPER catheter pack; Start 09/13/16 at 08:45; Stop 09/14/16 at 08:44; Status DC Labetalol HCl (Normodyne) 10 mg PRN Q1HR PRN IVP SBP > 180; Start 09/13/16 at 08:45; Stop 09/14/16 at 08:44; Status DC Info (PHARMACY MONITORING -- do not chart) 1 each PRN DAILY PRN MC SEE COMMENTS ; Start 09/13/16 at 08:45; Status UNV Info (PHARMACY MONITORING -- do not chart) 1 each PRN DAILY PRN MC SEE COMMENTS ; Start 09/13/16 at 08:45; Status UNV Pantoprazole Sodium 40 mg 40 mg DAILYAC IVP Last administered on 09/16/16 05: 57; Start 09/13/16 at 13:00; Stop 09/17/16 at 10:02; Status DC Sodium Chloride (Iv Sodium Chloride 0.9% 1000ml Bag) 1,000 ml @ 1,000 mls/hr Q1H PRN IV hypotension; Start 09/16/16 at 08:46; Stop 09/16/16 at 14:45; Status DC Diphenhydramine HCl (Benadryl) 25 mg 1X PRN PRN IV ITCHING; Start 09/16/16 at 09:00; Stop 09/17/16 at 08:59; Status DC Diphenhydramine HCl (Benadryl) 25 mg 1X PRN PRN IV ITCHING; Start 09/16/16 at 09:00; Stop 09/17/16 at 08:59; Status DC Sodium Chloride (Normal Saline Flush) 10 ml 1X PRN PRN IV AP catheter pack; Start 09/16/16 at 09:00; Stop 09/17/16 at 08:59; Status DC Sodium Chloride (Normal Saline Flush) 10 ml 1X PRN PRN IV CRYSTAL REPORT DEVELOPER catheter pack; Start 09/16/16 at 09:00; Stop 09/17/16 at 08:59; Status DC Info (PHARMACY MONITORING -- do not chart) 1 each PRN DAILY PRN MC SEE COMMENTS ; Start 09/16/16 at 09:00; Status UNV Info (PHARMACY MONITORING -- do not chart) 1 each PRN DAILY PRN MC SEE COMMENTS ; Start 09/16/16 at 09:00; Status UNV Darbepoetin Ernst (Aranesp) 60 mcg [id number] SQ Last administered on 09/23/16 20: 43; Start 09/16/16 at 21:00; Stop 09/26/16 at 11:05; Status DC Pantoprazole Sodium (Protonix) 40 mg DAILYAC PO Last administered on 10/01/16 07:30; Start 09/17/16 at 10:02 Fentanyl Citrate (Fentanyl 2ml Vial) 25 mcg PRN Q5MIN PRN IV MILD PAIN; Start 09/18/16 at 07:00; Stop 09/19/16 at 06:59; Status DC Fentanyl Citrate 50 mcg 50 mcg PRN Q5MIN PRN IV MODERATE PAIN; Start 09/18/16 at 07:00; Stop 09/19/16 at 06:59; Status DC Lactated Ringer's (Iv Lactated Ringers) 1,000 ml @ 0 mls/hr Q0M IV ; Start 09/18 at 07:00; Stop 09/18/16 at 18:59; Status DC Lidocaine HCl 2 ml 1X PRN PRN ID IV START; Start 09/18/16 at 07:00; Stop at 06:59; Status DC Prochlorperazine Edisylate (Compazine) 5 mg PACU PRN PRN IV NAUSEA; Start at 07:00; Stop 09/19/16 at 06:59; Status DC Dextrose 25 gm 25 gm STK-MED ONCE IV Last administered on 09/18/16 08:19; Start 09/18/16 at 08:19; Stop 09/18/16 at 08:20; Status DC Propofol (Diprivan) 20 ml @ As Directed STK-MED ONCE IV ; Start 09/18/16 at 11:13 ; Stop 09/18/16 at 11:14; Status DC Lidocaine HCl 5 ml 5 ml STK-MED ONCE .ROUTE ; Start 09/18/16 at 11:13; Stop at 11:14; Status DC Sodium Chloride 1,000 ml @ 100 mls/hr 1X ONCE IV Last administered on 11:29; Start 09/18/16 at 11:30; Stop 09/18/16 at 21:29; Status DC Sodium Chloride (Iv Sodium Chloride 0.9% 1000ml Bag) 1,000 ml @ 1,000 mls/hr Q1H PRN IV hypotension; Start 09/18/16 at 13:47; Stop 09/18/16 at 19:46; Status DC Acetaminophen (Tylenol) 500 mg 1X PRN PRN PO MILD PAIN / TEMP; Start 09/18/16 at 14:00; Stop 09/19/16 at 13:59; Status DC Diphenhydramine HCl (Benadryl) 25 mg 1X PRN PRN IV ITCHING; Start 09/18/16 at 14 :00; Stop 09/19/16 at 13:59; Status DC Diphenhydramine HCl (Benadryl) 25 mg 1X PRN PRN IV ITCHING; Start 09/18/16 at 14 :00; Stop 09/19/16 at 13:59; Status DC Labetalol HCl 10 mg 10 mg PRN Q1HR PRN IVP SBP > 180; Start 09/18/16 at 14:00; Stop 09/19/16 at 13:59; Status DC Sodium Chloride (Iv Sodium Chloride 0.9% 1000ml Bag) 1,000 ml @ 400 mls/hr Q2H30M PRN IV PATENCY; Start 09/18/16 at 13:47; Stop 09/19/16 at 01:46; Status DC Info 1 each 1 each PRN DAILY PRN MC SEE COMMENTS; Start 09/18/16 at 14:00; Status UNV Sodium Chloride 1,000 ml @ 1,000 mls/hr Q1H PRN IV hypotension; Start 09/20/16 at 07:30; Stop 09/20/16 at 18:00; Status DC Albumin Human (Albuminar) 200 ml @ 200 mls/hr 1X PRN PRN IV Hypotension; Start 09/20/16 at 07:45; Stop 09/20/16 at 14:00; Status DC Acetaminophen (Tylenol) 500 mg 1X PRN PRN PO MILD PAIN / TEMP; Start 09/20/16 at 07:45; Stop 09/20/16 at 18:00; Status DC Diphenhydramine HCl (Benadryl) 25 mg 1X PRN PRN IV ITCHING; Start 09/20/16 at 07 :45; Stop 09/20/16 at 18:00; Status DC Diphenhydramine HCl (Benadryl) 25 mg 1X PRN PRN IV ITCHING; Start 09/20/16 at 07 :45; Stop 09/20/16 at 18:00; Status DC Sodium Chloride (Normal Saline Flush) 10 ml 1X PRN PRN IV AP catheter pack; Start 09/20/16 at 07:45; Stop 09/20/16 at 18:00; Status DC Sodium Chloride (Normal Saline Flush) 10 ml 1X PRN PRN IV CRYSTAL REPORT DEVELOPER catheter pack; Start 09/20/16 at 07:45; Stop 09/20/16 at 18:00; Status DC Labetalol HCl 10 mg 10 mg PRN Q1HR PRN IVP SBP > 180; Start 09/20/16 at 07:45; Stop 09/20/16 at 18:00; Status DC Sodium Chloride (Iv Sodium Chloride 0.9% 1000ml Bag) 1,000 ml @ 400 mls/hr Q2H30M PRN IV PATENCY; Start 09/20/16 at 07:45; Stop 09/20/16 at 18:00; Status DC Info (PHARMACY MONITORING -- do not chart) 1 each PRN DAILY PRN MC SEE COMMENTS ; Start 09/20/16 at 07:45; Status UNV Warfarin Sodium (Coumadin Per Pharmacy) 1 each PRN DAILY PRN MC SEE COMMENTS Last administered on 09/30/16 15:57; Start 09/20/16 at 14:30 Warfarin Sodium (Coumadin) 2 mg 1X WARF ONCE PO Last administered on 09/20/16 17:27; Start 09/20/16 at 17:14; Stop 09/20/16 at 17:15; Status DC Methylprednisolone Acetate (Depo-Medrol 80mg Vial) 80 mg 1X ONCE IM ; Start 09/20/16 at 17:30; Stop 09/20/16 at 17:33; Status DC Methylprednisolone Acetate (Depo-Medrol 40mg Vial) 40 mg 1X ONCE IM ; Start 09/20/16 at 17:30; Stop 09/20/16 at 17:33; Status DC Bupivacaine HCl (Sensorcaine-Mpf 0.25%) 10 ml 1X ONCE IJ ; Start 09/20/16 at 17: 30; Stop 09/20/16 at 17:33; Status DC Warfarin Sodium (Coumadin) 2 mg 1X WARF ONCE PO Last administered on 09/21/16 17:14; Start 09/21/16 at 16:00; Stop 09/21/16 at 16:01; Status DC Warfarin Sodium 3 mg 3 mg 1X WARF ONCE PO Last administered on 09/22/16 17:28 ; Start 09/22/16 at 16:00; Stop 09/22/16 at 16:01; Status DC Sodium Chloride (Iv Sodium Chloride 0.9% 1000ml Bag) 1,000 ml @ 1,000 mls/hr Q1H PRN IV hypotension; Start 09/23/16 at 14:18; Stop 09/23/16 at 21:00; Status DC Sodium Chloride (Normal Saline Flush) 10 ml 1X PRN PRN IV AP catheter pack; Start 09/23/16 at 14:30; Stop 09/23/16 at 21:00; Status DC Sodium Chloride (Normal Saline Flush) 10 ml 1X PRN PRN IV [employer] catheter pack; Start 09/23/16 at 14:30; Stop 09/23/16 at 21:00; Status DC Info (PHARMACY MONITORING -- do not chart) 1 each PRN DAILY PRN MC SEE COMMENTS ; Start 09/23/16 at 14:30; Status UNV Info (PHARMACY MONITORING -- do not chart) 1 each PRN DAILY PRN MC SEE COMMENTS ; Start 09/23/16 at 14:30; Status UNV Warfarin Sodium (Coumadin) 3 mg 1X ONCE PO Last administered on 09/23/16 17:34 ; Start 09/23/16 at 17:00; Stop 09/23/16 at 17:01; Status DC Lidocaine/Sodium Bicarbonate (Buffered Lidocaine 1%) 20 ml STK-MED ONCE IJ ; Start 09/24/16 at 14:59; Stop 09/24/16 at 15:00; Status DC Fentanyl Citrate (Fentanyl 2ml Vial) 100 mcg STK-MED ONCE .ROUTE ; Start at 15:05; Stop 09/24/16 at 15:06; Status DC Midazolam HCl (Versed) 2 mg STK-MED ONCE .ROUTE ; Start 09/24/16 at 15:05; Stop 09/24/16 at 15:06; Status DC Lidocaine/Sodium Bicarbonate (Buffered Lidocaine 1%) 20 ml 1X ONCE IJ Last administered on 09/24/16 16:13; Start 09/24/16 at 16:15; Stop 09/24/16 at 16:16; Status DC Midazolam HCl (Versed) 2 mg 1X ONCE IV Last administered on 09/24/16 16:14; Start 09/24/16 at 16:15; Stop 09/24/16 at 16:16; Status DC Fentanyl Citrate (Fentanyl 2ml Vial) 100 mcg 1X ONCE IV Last administered on 16:15; Start 09/24/16 at 16:15; Stop 09/24/16 at 16:16; Status DC Warfarin Sodium 2 mg 2 mg 1X ONCE PO Last administered on 09/24/16 16:35; Start 09/24/16 at 17:00; Stop 09/24/16 at 17:01; Status DC Sodium Chloride 1,000 ml @ 1,000 mls/hr Q1H PRN IV hypotension; Start 09/25/16 at 08:38; Stop 09/25/16 at 14:37; Status DC Albumin Human (Albuminar) 200 ml @ 200 mls/hr 1X PRN PRN IV Hypotension; Start 09/25/16 at 08:45; Stop 09/25/16 at 14:44; Status DC Acetaminophen (Tylenol) 500 mg 1X PRN PRN PO MILD PAIN / TEMP; Start 09/25/16 at 08:45; Stop 09/26/16 at 08:44; Status DC Diphenhydramine HCl (Benadryl) 25 mg 1X PRN PRN IV ITCHING; Start 09/25/16 at 08 :45; Stop 09/26/16 at 08:44; Status DC Info (PHARMACY MONITORING -- do not chart) 1 each PRN DAILY PRN MC SEE COMMENTS ; Start 09/25/16 at 08:45; Status UNV Vancomycin HCl 1 each 1 each PRN DAILY PRN MC SEE COMMENTS Last administered on 09/30/16 15:58; Start 09/25/16 at 09:15 Piperacillin Sod/ Tazobactam Sod 2.25 gm/Sodium Chloride 50 ml @ 100 mls/hr Q6HRS IV Last administered on 10/01/16 05:44; Start 09/25/16 at 10:00 Vancomycin HCl/ Sodium Chloride (Iv Sodium Chloride 0.9% 500ml Bag) 500 ml @ 250 mls/hr ONCE ONCE IV Last administered on 09/25/16 13:32; Start 09/25/16 at 10:00; Stop 09/25/16 at 11:59; Status DC Warfarin Sodium (Coumadin) 4 mg 1X WARF ONCE PO ; Start 09/25/16 at 16:00; Stop 09/25/16 at 16:00; Status DC Warfarin Sodium 3 mg 3 mg 1X WARF ONCE PO Last administered on 09/25/16 16:00 ; Start 09/25/16 at 16:00; Stop 09/25/16 at 16:01; Status DC Magnesium Sulfate/ Dextrose (Magnesium Sulfate PREMIX 2GM) 50 ml @ 25 mls/hr PRN DAILY PRN IV for Mag < 1.7 on am labs Last administered on 09/28/16 18:18 ; Start 09/26/16 at 11:15 Darbepoetin Ernst (Aranesp) 100 mcg Th SQ Last administered on 09/26/16 20:40; Start 09/26/16 at 21:00 Amlodipine Besylate (Norvasc) 2.5 mg DAILY PO Last administered on 09/26/16 12: 21; Start 09/26/16 at 11:00; Stop 09/26/16 at 14:02; Status DC Amlodipine Besylate (Norvasc) 5 mg DAILY PO Last administered on 10/01/16 08: 16; Start 09/27/16 at 09:00 Warfarin Sodium (Coumadin) 5 mg 1X WARF ONCE PO Last administered on 09/26/16 16:15; Start 09/26/16 at 16:00; Stop 09/26/16 at 16:01; Status DC Vancomycin HCl 1 each 1 each 1X ONCE MC ; Start 09/27/16 at 16:00; Stop at 16:01; Status DC Sodium Chloride 1,000 ml @ 1,000 mls/hr Q1H PRN IV hypotension; Start 09/27/16 at 09:47; Stop 09/27/16 at 15:46; Status DC Albumin Human (Albuminar) 200 ml @ 200 mls/hr 1X PRN PRN IV Hypotension; Start 09/27/16 at 10:00; Stop 09/27/16 at 15:59; Status DC Acetaminophen (Tylenol) 500 mg 1X PRN PRN PO MILD PAIN / TEMP; Start 09/27/16 at 10:00; Stop 09/28/16 at 09:59; Status DC Diphenhydramine HCl (Benadryl) 25 mg 1X PRN PRN IV ITCHING; Start 09/27/16 at 10:00; Stop 09/28/16 at 09:59; Status DC Diphenhydramine HCl (Benadryl) 25 mg 1X PRN PRN IV ITCHING; Start 09/27/16 at 10:00; Stop 09/28/16 at 09:59; Status DC Labetalol HCl 10 mg 10 mg PRN Q1HR PRN IVP SBP > 180; Start 09/27/16 at 10:00; Stop 09/28/16 at 09:59; Status DC Sodium Chloride (Iv Sodium Chloride 0.9% 1000ml Bag) 1,000 ml @ 400 mls/hr Q2H30M PRN IV PATENCY; Start 09/27/16 at 09:47; Stop 09/27/16 at 21:46; Status DC Info (PHARMACY MONITORING -- do not chart) 1 each PRN DAILY PRN MC SEE COMMENTS ; Start 09/27/16 at 10:00; Status UNV Warfarin Sodium 5 mg 5 mg 1X WARF ONCE PO Last administered on 09/27/16 17:11 ; Start 09/27/16 at 16:00; Stop 09/27/16 at 16:01; Status DC Vancomycin HCl/ Sodium Chloride (Iv Sodium Chloride 0.9% 250ml) 250 ml @ 250 mls/hr ONCE ONCE IV Last administered on 09/27/16 21:15; Start 09/27/16 at 20 :10; Stop 09/27/16 at 21:09; Status DC Potassium Chloride (Klor-Con) 40 meq 1X ONCE PO Last administered on 12:04; Start 09/28/16 at 12:30; Stop 09/28/16 at 12:31; Status DC Warfarin Sodium (Coumadin) 4 mg 1X WARF ONCE PO Last administered on 15:32; Start 09/28/16 at 16:00; Stop 09/28/16 at 16:01; Status DC Warfarin Sodium 4 mg 4 mg 1X WARF ONCE PO Last administered on 09/29/16 17:06 ; Start 09/29/16 at 16:00; Stop 09/29/16 at 16:01; Status DC Vancomycin HCl 500 mg/Sodium Chloride 100 ml @ 100 mls/hr QMWF IV Last administered on 09/30/16 15:47; Start 09/30/16 at 16:00 Sodium Chloride (Iv Sodium Chloride 0.9% 1000ml Bag) 1,000 ml @ 1,000 mls/hr Q1H PRN IV hypotension; Start 09/30/16 at 08:00; Stop 09/30/16 at 13:59; Status DC Acetaminophen (Tylenol) 500 mg 1X PRN PRN PO MILD PAIN / TEMP; Start 09/30/16 at 09:00; Stop 10/01/16 at 08:59; Status DC Diphenhydramine HCl (Benadryl) 25 mg 1X PRN PRN IV ITCHING; Start 09/30/16 at 09:00; Stop 10/01/16 at 08:59; Status DC Diphenhydramine HCl 25 mg 25 mg 1X PRN PRN IV ITCHING; Start 09/30/16 at 09:00 ; Stop 10/01/16 at 08:59; Status DC Sodium Chloride (Iv Sodium Chloride 0.9% 1000ml Bag) 1,000 ml @ 400 mls/hr Q2H30M PRN IV PATENCY; Start 09/30/16 at 08:00; Stop 09/30/16 at 19:59; Status DC Info (PHARMACY MONITORING -- do not chart) 1 each PRN DAILY PRN MC SEE COMMENTS ; Start 09/30/16 at 09:00 Warfarin Sodium (Coumadin) 4 mg 1X WARF ONCE PO Last administered on t 17:12; Start 09/30/16 at 16:00; Stop 09/30/16 at 16:01; Status DC Active Scripts Active Reported [Mylanta] Tylenol (Acetaminophen) 325 Mg Tablet 1 Tab PO PRN Q4HRS Fleet Enema (Na Phos,M-B/Na Phos,Di-Ba) 133 Ml Enema 1 Each RC ONCE Dulcolax (Bisacodyl) 10 Mg Supp.rect 10 Mg RC PRN DAILY PRN Zofran Odt (Ondansetron) 8 Mg Tab.rapdis 1 Tab PO PRN Q8HRS PRN Nitrostat (Nitroglycerin) 0.4 Mg Tab.subl 1 Tab SL UD Cyclobenzaprine Hcl 10 Mg Tablet 1 Tab PO TID Zepatier 50-100 mg Tablet (Elbasvir/Grazoprevir) 1 Each Tablet 1 Each PO [PhosLo] Coreg (Carvedilol) 25 Mg Tablet 1 Tab PO BID Aspirin 81 Mg Tab.chew 1 Tab PO DAILY Allopurinol 100 Mg Tablet 1 Tab PO DAILY Ventolin Hfa Inhaler (Albuterol Sulfate) 18 Gm Hfa.aer.ad 2 Puff INH Q4HRS Nephplex Rx Tablet (Vit B Cmplx No3/Fa/C/Biot/Zinc) 1 Each Tablet 1 Each PO Senokot (Sennosides) 8.6 Mg Tablet 1 Tab PO BID Oxycontin (Oxycodone HCl) 10 Mg Tab.er.12h 10 Mg PO BID Glycolax (Polyethylene Glycol 3350) 119 Gm Powder 17 Gm PO UD Percocet 10-325 Mg Tablet (Oxycodone/Acetaminophen) 1 Each Tablet 1 Tab PO Q4- 6HRS Vitamin D3 (Cholecalciferol (Vitamin D3)) 1,000 Unit Tablet 1 Tab PO DAILY Advair 250-50 Diskus (Fluticasone/Salmeterol) 1 Each Disk.w.dev 1 Puff IH BID Ipratropium [place] 0.2 Mg/1 Ml Solution 1 Vial NEB QID Lidoderm (Lidocaine) 700 Mg Adh..patch 1 Patch TP DAILY Nortriptyline Hcl 25 Mg Capsule 1 Cap PO QHS Warfarin Sodium 2 Mg Tablet 1.5 Mg PO DAILY Gabapentin 300 Mg Capsule 300 Mg PO TID Zoloft (Sertraline Hcl) 100 Mg Tablet 1 Tab PO DAILY Vitals/I & O Vital Sign - Last 24 Hours 09/30/16 09/30/16 09/30/16 09/30/16 12:57 12:57 12:58 14:52 Temp 97.7 97.7 Pulse 94 94 94 Resp 18 B/P 161/92 161/92 198/88 Pulse Ox 91 99 O2 Delivery Room Air Room Air O2 Flow Rate 97.0 09/30/16 09/30/16 09/30/16 09/30/16 15:43 16:43 16:43 17:03 O2 Delivery Room Air Room Air O2 Flow Rate 97.0 97.0 09/30/16 09/30/16 09/30/16 09/30/16 17:12 19:00 19:25 19:29 Temp 98.4 98.4 Pulse 94 82 Resp 20 B/P 198/88 151/88 Pulse Ox 99 100 100 O2 Delivery Room Air Room Air 09/30/16 09/30/16 09/30/16 10/01/16 20:00 20:36 23:00 00:45 Temp 97.9 97.9 Pulse 79 Resp 18 18 17 B/P 164/82 Pulse Ox 100 97 100 O2 Delivery Room Air Room Air Room Air 10/01/16 10/01/16 10/01/16 10/01/16 03:00 03:15 04:32 04:47 Temp 98.0 98.0 Pulse 82 Resp 18 16 18 B/P 164/81 Pulse Ox 97 100 97 O2 Delivery Room Air Room Air Room Air 10/01/16 10/01/16 10/01/16 10/01/16 07:00 07:39 08:00 08:15 Temp 97.7 97.7 Pulse 85 85 Resp 18 B/P 175/72 175/72 Pulse Ox 98 96 O2 Delivery Room Air Room Air Room Air O2 Flow Rate 97.0 10/01/16 10/01/16 10/01/16 10/01/16 08:16 08:16 10:52 11:28 Temp 97.7 97.7 Pulse 85 77 Resp 18 B/P 175/72 157/90 Pulse Ox 97 O2 Delivery Room Air Room Air Room Air Intake and Output 09/30/16 09/30/16 10/01/16 15:00 23:00 07:00 Intake Total 360 ml 860 ml Output Total 1 ml Balance 360 ml 860 ml -1 ml TANA ANDREW III DO Oct 01, 2016 12:09
[2016-10-01 15:06] VITALS: BP 155/83
[2016-10-01] MEDS: VANCOMYCIN PER PHARMACY MC PRN (15:08)
[2016-10-01] MEDS ORDERED: WARFARIN 4 MG TABLET. PO ONE (16:00)
[2016-10-01 19:26] VITALS: BP 135/70
[2016-10-01] MEDS: NORTRIPTYLINE 25 MG CAPSULE PO SCH (20:21)
[2016-10-01 22:31] VITALS: BP 163/86
[2016-10-02] MEDS: PIPERACILLIN/TAZOBACTAM 2.25 GM in IV NORMAL SALINE 50ML 50 ML IV SCH ×3 (05:20)
[2016-10-02] MEDS: ONDANSETRON ODT 4 MG TAB.RAPDIS PO SCH ×2 (05:21→15:03)
[2016-10-02] MEDS: OXYCODONE/APAP 10/325 TABLET. PO PRN ×3 (05:21→12:50)
[2016-10-02] MEDS: IPRATRPIUM/ALBUTEROL 0.5/2.5MG 3 ML NEBU. NEB SCH ×3 (06:46→14:38)
[2016-10-02] MEDS: BUDESONIDE 0.5 MG/2 ML NEBU NEB SCH (06:46)
[2016-10-02 06:59] LABS: BASO # 0.1 x10^3/uL (0.0-0.2); BASO % 1 % (0-3); EOS % 2 % (0-3); HEMATOCRIT 24.5 % (36.0-47.0); HEMOGLOBIN 7.6 g/dL (12.0-15.5); LYMPH # 2.3 x10^3/uL (1.0-4.8); LYMPH % 22 % (24-48); MEAN CORPUSCULAR HEMOGLOBIN 27 pg (25-35); MEAN CORPUSCULAR HGB CONC 31 g/dL (31-37); MEAN CORPUSCULAR VOLUME 87 fL (79-100); MONO % 8 % (0-9); NEUT % 68 % (31-73); PLATELET COUNT 236 x10^3/uL (140-400); RED BLOOD COUNT 2.81 x10^6/uL (3.50-5.40); RED CELL DISTRIBUTION WIDTH 18.9 % (11.5-14.5); WHITE BLOOD COUNT 10.8 x10^3/uL (4.0-11.0)
[2016-10-02 07:00] VITALS: BP 174/85
[2016-10-02 07:00] LABS: ALBUMIN 1.7 g/dL (3.4-5.0); CALCIUM 8.3 mg/dL (8.5-10.1); CREATININE 3.6 mg/dL (0.6-1.0); GFR 15.6; PHOSPHORUS 2.9 mg/dL (2.6-4.7); POTASSIUM 3.7 mmol/L (3.5-5.1)
[2016-10-02] MEDS ORDERED: IV NORMAL SALINE 1000ML BAG 1,000 ML IV PRN ×2 (07:28)
[2016-10-02] MEDS ORDERED: ALBUMIN HUMAN 25% 200 ML IV PRN (07:30)
[2016-10-02] MEDS ORDERED: DIALYSIS PATIENT. MC PRN (07:30)
[2016-10-02] MEDS ORDERED: ACETAMINOPHEN 500 MG TABLET PO PRN (07:30)
[2016-10-02] MEDS ORDERED: DIPHENHYDRAMINE 50 MG/ML VIAL IV PRN ×2 (07:30)
[2016-10-02] MEDS ORDERED: LABETALOL 20 MG/4 ML DISP.SYRIN. IVP PRN (07:30)
[2016-10-02] MEDS ORDERED: GENTAMICIN PER PHARMACY. MC PRN (08:30)
--- NOTE | 2016-10-02 08:32 | PDOC ---
Infectious Disease Note Subjective Subjective Mild lower back pain - better with brace. Denies leg pain, weakness but has some right thigh numbness stil ROS ROS GEN: Denies fevers, chills, sweats HEENT: Denies blurred vision, sore throat CV: Denies chest pain RESP: Denies shortness of air, cough GI: Denies n/v/d NEURO: Denies confusion, dizziness MSK: Denies weakness, joint pain/swelling Vital Sign Vital Signs Vital Signs Date Time Temp Pulse Resp B/P Pulse Ox O2 Delivery O2 Flow Rate FiO2 10/02/16 07:00 97.3 85 20 174/85 95 Room Air 97.3 10/01/16 13:40 97.0 Physical Exam PHYSICAL EXAM GENERAL: NAD, Alert, in HD HEENT: PERRL, OC/OP clear NECK: Supple, no JVD, no LN LUNGS: Clear HEART: S1S2, no gallop, no murmur ABD: Soft, NT, BS present, brace on EXT: No edema, no cyanosis. LUE fistula, bruising Right thigh benign appearance AUDIOLOGIST: Alert, oriented x 3, no focal neurologic deficit SKIN: No rash. Tattoo HDC clean. AV fistula working. RUE midline Labs Lab Laboratory Tests Test 10/01/16 10:19 10/01/16 16:24 10/01/16 20:18 10/02/16 05:40 Glucose (Fingerstick) 106mg/dL (70-99) 117mg/dL (70-99) 134mg/dL (70-99) White Blood Count 10.8x10^3/uL (4.0-11.0) Red Blood Count 2.81x10^6/uL (3.50-5.40) Hemoglobin 7.6g/dL (12.0-15.5) Hematocrit 24.5% (36.0-47.0) Mean Corpuscular Volume 87fL (79-100) Mean Corpuscular Hemoglobin 27pg (25-35) Mean Corpuscular Hemoglobin Concent 31g/dL (31-37) Red Cell Distribution Width 18.9% (11.5-14.5) Platelet Count 236x10^3/uL (140-400) Neutrophils (%) (Auto) 68% (31-73) Lymphocytes (%) (Auto) 22% (24-48) Monocytes (%) (Auto) 8% (0-9) Eosinophils (%) (Auto) 2% (0-3) Basophils (%) (Auto) 1% (0-3) Neutrophils # (Auto) 7.3x10^3uL (1.8-7.7) Lymphocytes # (Auto) 2.3x10^3/uL (1.0-4.8) Monocytes # (Auto) 0.9x10^3/uL (0.0-1.1) Eosinophils # (Auto) 0.2x10^3/uL (0.0-0.7) Basophils # (Auto) 0.1x10^3/uL (0.0-0.2) Sodium Level 138mmol/L (136-145) Potassium Level 3.7mmol/L (3.5-5.1) Chloride Level 102mmol/L (98-107) Carbon Dioxide Level 27mmol/L (21-32) Anion Gap 9 (6-14) Blood Urea Nitrogen 20mg/dL (7-20) Creatinine 3.6mg/dL (0.6-1.0) Estimated GFR (Cockcroft-Gault) 15.6 Glucose Level 91mg/dL (70-99) Calcium Level 8.3mg/dL (8.5-10.1) Phosphorus Level 2.9mg/dL (2.6-4.7) Albumin 1.7g/dL (3.4-5.0) Test 10/02/16 07:08 Glucose (Fingerstick) 89mg/dL (70-99) Objective Assessment ? Diskitis L 1-2, chronic back pain, had back surgery last year. sed rate 92 09/23. Stable and more mobile some -s/p aspiration & biopsy. 09/24. CX NGTD however, AFB/Fungal apparently not collected GI bleed ESRD on HD HTN Plan Plan of Care Reviewed Neurosurgery recs re thigh numbness on right and MRI interpretation. Discharge on vanc and Gent with HD for about 5 weeks d/w Dr. Mitchell 10/01 Will repeat MRI in 4 weeks and if not improving or worsening may need reaspiration given lack of AFB/Fungal BOUCHRA ZABALA MD Oct 02, 2016 08:32
[2016-10-02] MEDS ORDERED: GENTAMICIN SULFATE 80 MG in IV NORMAL SALINE 100ML 100 ML IV ONE (09:30)
--- NOTE | 2016-10-02 10:09 | PDOC ---
PROGRESS NOTES Subjective Subjective She admits knee joint swelling. 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 Assessment Assessment Problems Medical Problems: (1) Anemia Status: Acute (2) Coagulopathy Status: Acute (3) Coumadin toxicity Status: Acute (4) Elevated INR (international normalized ratio) due to prior anticoagulant medication ingestion Status: Acute (5) ESRD on dialysis Status: Acute (6) GI bleed Status: Acute Plan Plan of Care Waiting for LTAC unit or SNF transfer when medically stable. Comment Review of Relevant I have reviewed the following items christi (where applicable) has been applied. Labs Laboratory Tests Test 09/30/16 16:03 09/30/16 20:39 10/01/16 03:25 10/01/16 07:16 Glucose (Fingerstick) 91mg/dL (70-99) 117mg/dL (70-99) 108mg/dL (70-99) White Blood Count 9.8x10^3/uL (4.0-11.0) Red Blood Count 2.61x10^6/uL (3.50-5.40) Hemoglobin 7.3g/dL (12.0-15.5) Hematocrit 22.6% (36.0-47.0) Mean Corpuscular Volume 86fL (79-100) Mean Corpuscular Hemoglobin 28pg (25-35) Mean Corpuscular Hemoglobin Concent 32g/dL (31-37) Red Cell Distribution Width 18.2% (11.5-14.5) Platelet Count 236x10^3/uL (140-400) Neutrophils (%) (Auto) 69% (31-73) Lymphocytes (%) (Auto) 19% (24-48) Monocytes (%) (Auto) 9% (0-9) Eosinophils (%) (Auto) 2% (0-3) Basophils (%) (Auto) 0% (0-3) Neutrophils # (Auto) 6.8x10^3uL (1.8-7.7) Lymphocytes # (Auto) 1.9x10^3/uL (1.0-4.8) Monocytes # (Auto) 0.9x10^3/uL (0.0-1.1) Eosinophils # (Auto) 0.2x10^3/uL (0.0-0.7) Basophils # (Auto) 0.0x10^3/uL (0.0-0.2) Prothrombin Time 23.3SEC (11.7-14.0) Prothromb Time International Ratio 2.2 (0.8-1.1) Sodium Level 138mmol/L (136-145) Potassium Level 3.5mmol/L (3.5-5.1) Chloride Level 101mmol/L (98-107) Carbon Dioxide Level 29mmol/L (21-32) Anion Gap 8 (6-14) Blood Urea Nitrogen 14mg/dL (7-20) Creatinine 2.5mg/dL (0.6-1.0) Estimated GFR (Cockcroft-Gault) 23.8 Glucose Level 125mg/dL (70-99) Calcium Level 8.4mg/dL (8.5-10.1) Phosphorus Level 2.0mg/dL (2.6-4.7) Magnesium Level 1.8mg/dL (1.8-2.4) Albumin 1.7g/dL (3.4-5.0) Test 10/01/16 10:19 10/01/16 16:24 10/01/16 20:18 10/02/16 05:40 Glucose (Fingerstick) 106mg/dL (70-99) 117mg/dL (70-99) 134mg/dL (70-99) White Blood Count 10.8x10^3/uL (4.0-11.0) Red Blood Count 2.81x10^6/uL (3.50-5.40) Hemoglobin 7.6g/dL (12.0-15.5) Hematocrit 24.5% (36.0-47.0) Mean Corpuscular Volume 87fL (79-100) Mean Corpuscular Hemoglobin 27pg (25-35) Mean Corpuscular Hemoglobin Concent 31g/dL (31-37) Red Cell Distribution Width 18.9% (11.5-14.5) Platelet Count 236x10^3/uL (140-400) Neutrophils (%) (Auto) 68% (31-73) Lymphocytes (%) (Auto) 22% (24-48) Monocytes (%) (Auto) 8% (0-9) Eosinophils (%) (Auto) 2% (0-3) Basophils (%) (Auto) 1% (0-3) Neutrophils # (Auto) 7.3x10^3uL (1.8-7.7) Lymphocytes # (Auto) 2.3x10^3/uL (1.0-4.8) Monocytes # (Auto) 0.9x10^3/uL (0.0-1.1) Eosinophils # (Auto) 0.2x10^3/uL (0.0-0.7) Basophils # (Auto) 0.1x10^3/uL (0.0-0.2) Sodium Level 138mmol/L (136-145) Potassium Level 3.7mmol/L (3.5-5.1) Chloride Level 102mmol/L (98-107) Carbon Dioxide Level 27mmol/L (21-32) Anion Gap 9 (6-14) Blood Urea Nitrogen 20mg/dL (7-20) Creatinine 3.6mg/dL (0.6-1.0) Estimated GFR (Cockcroft-Gault) 15.6 Glucose Level 91mg/dL (70-99) Calcium Level 8.3mg/dL (8.5-10.1) Phosphorus Level 2.9mg/dL (2.6-4.7) Albumin 1.7g/dL (3.4-5.0) Test 10/02/16 07:08 Glucose (Fingerstick) 89mg/dL (70-99) Laboratory Tests Test 10/01/16 10:19 10/01/16 16:24 10/01/16 20:18 10/02/16 05:40 Glucose (Fingerstick) 106mg/dL (70-99) 117mg/dL (70-99) 134mg/dL (70-99) White Blood Count 10.8x10^3/uL (4.0-11.0) Red Blood Count 2.81x10^6/uL (3.50-5.40) Hemoglobin 7.6g/dL (12.0-15.5) Hematocrit 24.5% (36.0-47.0) Mean Corpuscular Volume 87fL (79-100) Mean Corpuscular Hemoglobin 27pg (25-35) Mean Corpuscular Hemoglobin Concent 31g/dL (31-37) Red Cell Distribution Width 18.9% (11.5-14.5) Platelet Count 236x10^3/uL (140-400) Neutrophils (%) (Auto) 68% (31-73) Lymphocytes (%) (Auto) 22% (24-48) Monocytes (%) (Auto) 8% (0-9) Eosinophils (%) (Auto) 2% (0-3) Basophils (%) (Auto) 1% (0-3) Neutrophils # (Auto) 7.3x10^3uL (1.8-7.7) Lymphocytes # (Auto) 2.3x10^3/uL (1.0-4.8) Monocytes # (Auto) 0.9x10^3/uL (0.0-1.1) Eosinophils # (Auto) 0.2x10^3/uL (0.0-0.7) Basophils # (Auto) 0.1x10^3/uL (0.0-0.2) Sodium Level 138mmol/L (136-145) Potassium Level 3.7mmol/L (3.5-5.1) Chloride Level 102mmol/L (98-107) Carbon Dioxide Level 27mmol/L (21-32) Anion Gap 9 (6-14) Blood Urea Nitrogen 20mg/dL (7-20) Creatinine 3.6mg/dL (0.6-1.0) Estimated GFR (Cockcroft-Gault) 15.6 Glucose Level 91mg/dL (70-99) Calcium Level 8.3mg/dL (8.5-10.1) Phosphorus Level 2.9mg/dL (2.6-4.7) Albumin 1.7g/dL (3.4-5.0) Test 10/02/16 07:08 Glucose (Fingerstick) 89mg/dL (70-99) Microbiology 09/24/16 Blood Culture - Final, Complete NO GROWTH AFTER 5 DAYS 09/24/16 Anaerobic/Aerobic Culture - Final, Complete 09/24/16 Anaerobic Culture Result 1 (CONNOR) - Final, Complete 09/24/16 Aerobic Culture - Final, Complete 09/24/16 Aerobic Culture Result 1 (CONNOR) - Final, Complete Medications Current Medications Oxycodone/ Acetaminophen (Percocet 5/325) 1 tab 1X ONCE PO ; Start 09/09/16 at 19:00; Stop 09/09/16 at 19:01; Status DC Hydromorphone HCl 1 mg 1 mg 1X ONCE IV Last administered on 09/09/16 19:21; Start 09/09/16 at 19:15; Stop 09/09/16 at 19:16; Status DC Pantoprazole Sodium/Sodium Chloride (Protonix Iv/Iv Sodium Chloride 0.9% 100ml) 100 ml @ 10 mls/hr 1X ONCE IV Last administered on 09/09/16 19:51; Start at 19:30; Stop 09/10/16 at 05:29; Status DC Ondansetron HCl 4 mg 4 mg PRN Q8HRS PRN IV NAUSEA/VOMITING Last administered on 09/09/16 19:51; Start 09/09/16 at 19:30; Stop 09/10/16 at 19:29; Status DC Sodium Chloride (Iv Sodium Chloride 0.9% 1000ml Bag) 1,000 ml @ 100 mls/hr Q10H IV Last administered on 09/09/16 19:51; Start 09/09/16 at 19:30; Stop at 06:00; Status DC Acetaminophen (Tylenol) 650 mg PRN Q4HRS PRN PO FEVER Last administered on 09/09 19:52; Start 09/09/16 at 19:30; Stop 09/10/16 at 19:29; Status DC Multi-Ingredient Mouthwash/Gargle 15 ml 15 ml 1X ONCE SWSW Last administered on 09/09/16 23:41; Start 09/09/16 at 23:30; Stop 09/09/16 at 23:31; Status DC Phytonadione/ Sodium Chloride (Vitamin K/Iv Sodium Chloride 0.9% 50ml) 51 ml @ 102 mls/hr 1X ONCE IV Last administered on 09/10/16 02:07; Start 09/10/16 at 00:00; Stop 09/10/16 at 00:29; Status DC Acetaminophen (Tylenol) 325 mg PRN Q4HRS PO ; Start 09/09/16 at 23:30; Stop at 23:30; Status DC Allopurinol (Zyloprim) 100 mg DAILY PO Last administered on 10/01/16 08:16; Start 09/10/16 at 09:00 Bisacodyl (Dulcolax Supp) 10 mg PRN DAILY PRN RC CONSTIPATION; Start 09/09/16 at 23:30 Cyclobenzaprine HCl (Flexeril) 10 mg PRN TID PRN PO back pain Last administered on 10/01/16 00:14; Start 09/09/16 at 23:30 Gabapentin (Neurontin) 300 mg DAILY PO Last administered on 10/01/16 08:16; Start 09/10/16 at 09:00 Ipratropium [place] (Atrovent) 0.2 mg QID NEB ; Start 09/10/16 at 09:00; Status UNV Lidocaine (Lidoderm) 1 patch DAILY TP Last administered on 10/01/16 08:16; Start 09/10/16 at 09:00 Nortriptyline HCl (Pamelor) 25 mg QHS PO Last administered on 10/01/16 20:21; Start 09/10/16 at 21:00 Oxycodone HCl (Oxycontin) 10 mg BID PO Last administered on 10/01/16 20:22; Start 09/10/16 at 09:00 Oxycodone/ Acetaminophen (Percocet 10/325) 1 tab PRN Q4HRS PRN PO SEVERE PAIN Last administered on 10/02/16 05:21; Start 09/09/16 at 23:30 Non-Formulary Medication 2 puff Q4HRS INH FOR ASTHMA; Start 09/10/16 at 00:00; Status UNV Carvedilol (Coreg) 25 mg BIDWMEALS PO Last administered on 10/01/16 17:13; Start 09/10/16 at 08:00 Non-Formulary Medication 1 puff BID IH ; Start 09/10/16 at 09:00; Status UNV Ondansetron HCl (Zofran Odt) 8 mg Q8HRS PO Last administered on 10/02/16 05:21 ; Start 09/10/16 at 06:00 Sertraline HCl (Zoloft) 100 mg DAILY PO Last administered on 10/01/16 08:16; Start 09/10/16 at 09:00 Labetalol HCl (Normodyne) 20 mg PRN Q2HR PRN IVP HYPERTENSION, SEE COMMENTS Last administered on 09/25/16 05:47; Start 09/09/16 at 23:30 Albuterol/ Ipratropium (Duoneb) 3 ml RTQID NEB Last administered on 10/02/16 06:46; Start 09/10/16 at 08:00 Budesonide (Pulmicort) 0.5 mg RTBID NEB Last administered on 10/02/16 06:46; Start 09/10/16 at 08:00 Albuterol Sulfate 2.5 mg 2.5 mg PRN Q4HRS PRN NEB SHORTNESS OF BREATH Last administered on 10/01/16 04:46; Start 09/09/16 at 23:30 Pantoprazole Sodium 80 mg/ Sodium Chloride 100 ml @ 10 mls/hr Q10H IV Last administered on 09/13/16 07:51; Start 09/10/16 at 10:00; Stop 09/13/16 at 09:59 ; Status DC Magnesium Sulfate/ Dextrose 50 ml @ 25 mls/hr PRN DAILY PRN IV for Mag < 1.7 on am labs; Start 09/10/16 at 10:00; Stop 09/22/16 at 11:36; Status DC Sodium Chloride (Iv Sodium Chloride 0.9% 1000ml Bag) 1,000 ml @ 1,000 mls/hr Q1H PRN IV hypotension; Start 09/11/16 at 08:50; Stop 09/11/16 at 14:49; Status DC Diphenhydramine HCl (Benadryl) 25 mg 1X PRN PRN IV ITCHING; Start 09/11/16 at 09:00; Stop 09/12/16 at 08:59; Status DC Diphenhydramine HCl (Benadryl) 25 mg 1X PRN PRN IV ITCHING; Start 09/11/16 at 09:00; Stop 09/12/16 at 08:59; Status DC Sodium Chloride (Normal Saline Flush) 10 ml 1X PRN PRN IV AP catheter pack; Start 09/11/16 at 09:00; Stop 09/12/16 at 08:59; Status DC Sodium Chloride (Normal Saline Flush) 10 ml 1X PRN PRN IV ADVERTISING MANAGER catheter pack; Start 09/11/16 at 09:00; Stop 09/12/16 at 08:59; Status DC Labetalol HCl 10 mg 10 mg PRN Q1HR PRN IVP SBP > 180; Start 09/11/16 at 09:00; Stop 09/12/16 at 08:59; Status DC Sodium Chloride (Iv Sodium Chloride 0.9% 1000ml Bag) 1,000 ml @ 400 mls/hr Q2H30M PRN IV PATENCY; Start 09/11/16 at 08:50; Stop 09/11/16 at 20:49; Status DC Info (PHARMACY MONITORING -- do not chart) 1 each PRN DAILY PRN MC SEE COMMENTS ; Start 09/11/16 at 09:00; Stop 09/30/16 at 14:09; Status DC Info (PHARMACY MONITORING -- do not chart) 1 each PRN DAILY PRN MC SEE COMMENTS ; Start 09/11/16 at 09:00; Status UNV Sodium Cl/Sod Bicarb/Potass Cl/ PEG (Golytely) 4,000 ml 1X ONCE PO Last administered on 09/11/16t 17:13; Start 09/11/16 at 13:00; Stop 09/11/16 at 13:01 ; Status DC Fentanyl Citrate (Fentanyl 2ml Vial) 25 mcg PRN Q5MIN PRN IV MILD PAIN; Start 09/12/16 at 07:00; Stop 09/13/16 at 06:59; Status DC Fentanyl Citrate 50 mcg 50 mcg PRN Q5MIN PRN IV MODERATE PAIN; Start 09/12/16 at 07:00; Stop 09/13/16 at 06:59; Status DC Lactated Ringer's (Iv Lactated Ringers) 1,000 ml @ 0 mls/hr Q0M IV ; Start at 07:00; Stop 09/12/16 at 18:59; Status DC Lidocaine HCl 2 ml 1X PRN PRN ID IV START; Start 09/12/16 at 07:00; Stop at 06:59; Status DC Prochlorperazine Edisylate (Compazine) 5 mg PACU PRN PRN IV NAUSEA; Start 09/12 at 07:00; Stop 09/13/16 at 06:59; Status DC Pantoprazole Sodium 40 mg 40 mg DAILYAC IVP ; Start 09/13/16 at 07:30; Status UNV Magnesium Sulfate/ Dextrose 50 ml @ 25 mls/hr 1X ONCE IV ; Start 09/12/16 at 11 :30; Stop 09/12/16 at 13:29; Status DC Propofol 0 ml @ As Directed STK-MED ONCE IV ; Start 09/12/16 at 12:55; Stop at 12:56; Status DC Propofol (Diprivan) 20 ml @ As Directed STK-MED ONCE IV ; Start 09/12/16 at 12: 55; Stop 09/12/16 at 12:56; Status Cancel Lidocaine HCl (Lidocaine Pf 2% Vial) 5 ml STK-MED ONCE .ROUTE ; Start 09/12/16 at 12:55; Stop 09/12/16 at 12:56; Status DC Lorazepam (Ativan) 2 mg PRN Q4HRS PRN IV ANXIETY / AGITATION Last administered on 09/26/16t 03:00; Start 09/12/16 at 14:15 Lorazepam (Ativan) 2 mg Q4HRS PRN IV ANXIETY / AGITATION; Start 09/12/16 at 14: 15; Status UNV Haloperidol Lactate (Haldol) 2.5 mg PRN Q6HRS PRN IM AGITATION; Start 09/12/16 at 14:15; Stop 09/26/16 at 14:02; Status DC Haloperidol Lactate (Haldol) 2.5 mg PRN Q6HRS PRN IVP AGITATION; Start at 14:15; Stop 09/26/16 at 14:02; Status DC Lorazepam 2 mg 2 mg PRN Q4HRS PRN IM ANXIETY / AGITATION; Start 09/12/16 at 14: 30; Stop 09/17/16 at 14:37; Status DC Sodium Chloride (Iv Sodium Chloride 0.9% 1000ml Bag) 1,000 ml @ 1,000 mls/hr Q1H PRN IV hypotension; Start 09/13/16 at 08:39; Stop 09/13/16 at 14:38; Status DC Diphenhydramine HCl (Benadryl) 25 mg 1X PRN PRN IV ITCHING; Start 09/13/16 at 08:45; Stop 09/14/16 at 08:44; Status DC Diphenhydramine HCl (Benadryl) 25 mg 1X PRN PRN IV ITCHING; Start 09/13/16 at 08:45; Stop 09/14/16 at 08:44; Status DC Sodium Chloride (Normal Saline Flush) 10 ml 1X PRN PRN IV AP catheter pack; Start 09/13/16 at 08:45; Stop 09/14/16 at 08:44; Status DC Sodium Chloride (Normal Saline Flush) 10 ml 1X PRN PRN IV ADVERTISING MANAGER catheter pack; Start 09/13/16 at 08:45; Stop 09/14/16 at 08:44; Status DC Labetalol HCl (Normodyne) 10 mg PRN Q1HR PRN IVP SBP > 180; Start 09/13/16 at 08:45; Stop 09/14/16 at 08:44; Status DC Info (PHARMACY MONITORING -- do not chart) 1 each PRN DAILY PRN MC SEE COMMENTS ; Start 09/13/16 at 08:45; Status UNV Info (PHARMACY MONITORING -- do not chart) 1 each PRN DAILY PRN MC SEE COMMENTS ; Start 09/13/16 at 08:45; Status UNV Pantoprazole Sodium 40 mg 40 mg DAILYAC IVP Last administered on 09/16/16t 05: 57; Start 09/13/16 at 13:00; Stop 09/17/16 at 10:02; Status DC Sodium Chloride (Iv Sodium Chloride 0.9% 1000ml Bag) 1,000 ml @ 1,000 mls/hr Q1H PRN IV hypotension; Start 09/16/16 at 08:46; Stop 09/16/16 at 14:45; Status DC Diphenhydramine HCl (Benadryl) 25 mg 1X PRN PRN IV ITCHING; Start 09/16/16 at 09:00; Stop 09/17/16 at 08:59; Status DC Diphenhydramine HCl (Benadryl) 25 mg 1X PRN PRN IV ITCHING; Start 09/16/16 at 09:00; Stop 09/17/16 at 08:59; Status DC Sodium Chloride (Normal Saline Flush) 10 ml 1X PRN PRN IV AP catheter pack; Start 09/16/16 at 09:00; Stop 09/17/16 at 08:59; Status DC Sodium Chloride (Normal Saline Flush) 10 ml 1X PRN PRN IV ADVERTISING MANAGER catheter pack; Start 09/16/16 at 09:00; Stop 09/17/16 at 08:59; Status DC Info (PHARMACY MONITORING -- do not chart) 1 each PRN DAILY PRN MC SEE COMMENTS ; Start 09/16/16 at 09:00; Status UNV Info (PHARMACY MONITORING -- do not chart) 1 each PRN DAILY PRN MC SEE COMMENTS ; Start 09/16/16 at 09:00; Status UNV Darbepoetin Ernst (Aranesp) 60 mcg [id number] SQ Last administered on 09/23/16 20: 43; Start 09/16/16 at 21:00; Stop 09/26/16 at 11:05; Status DC Pantoprazole Sodium (Protonix) 40 mg DAILYAC PO Last administered on 10/01/16 07:30; Start 09/17/16 at 10:02 Fentanyl Citrate (Fentanyl 2ml Vial) 25 mcg PRN Q5MIN PRN IV MILD PAIN; Start 09/18/16 at 07:00; Stop 09/19/16 at 06:59; Status DC Fentanyl Citrate 50 mcg 50 mcg PRN Q5MIN PRN IV MODERATE PAIN; Start 09/18/16 at 07:00; Stop 09/19/16 at 06:59; Status DC Lactated Ringer's (Iv Lactated Ringers) 1,000 ml @ 0 mls/hr Q0M IV ; Start 09/18 at 07:00; Stop 09/18/16 at 18:59; Status DC Lidocaine HCl 2 ml 1X PRN PRN ID IV START; Start 09/18/16 at 07:00; Stop at 06:59; Status DC Prochlorperazine Edisylate (Compazine) 5 mg PACU PRN PRN IV NAUSEA; Start at 07:00; Stop 09/19/16 at 06:59; Status DC Dextrose 25 gm 25 gm STK-MED ONCE IV Last administered on 09/18/16 08:19; Start 09/18/16 at 08:19; Stop 09/18/16 at 08:20; Status DC Propofol (Diprivan) 20 ml @ As Directed STK-MED ONCE IV ; Start 09/18/16 at 11:13 ; Stop 09/18/16 at 11:14; Status DC Lidocaine HCl 5 ml 5 ml STK-MED ONCE .ROUTE ; Start 09/18/16 at 11:13; Stop at 11:14; Status DC Sodium Chloride 1,000 ml @ 100 mls/hr 1X ONCE IV Last administered on 11:29; Start 09/18/16 at 11:30; Stop 09/18/16 at 21:29; Status DC Sodium Chloride (Iv Sodium Chloride 0.9% 1000ml Bag) 1,000 ml @ 1,000 mls/hr Q1H PRN IV hypotension; Start 09/18/16 at 13:47; Stop 09/18/16 at 19:46; Status DC Acetaminophen (Tylenol) 500 mg 1X PRN PRN PO MILD PAIN / TEMP; Start 09/18/16 at 14:00; Stop 09/19/16 at 13:59; Status DC Diphenhydramine HCl (Benadryl) 25 mg 1X PRN PRN IV ITCHING; Start 09/18/16 at 14 :00; Stop 09/19/16 at 13:59; Status DC Diphenhydramine HCl (Benadryl) 25 mg 1X PRN PRN IV ITCHING; Start 09/18/16 at 14 :00; Stop 09/19/16 at 13:59; Status DC Labetalol HCl 10 mg 10 mg PRN Q1HR PRN IVP SBP > 180; Start 09/18/16 at 14:00; Stop 09/19/16 at 13:59; Status DC Sodium Chloride (Iv Sodium Chloride 0.9% 1000ml Bag) 1,000 ml @ 400 mls/hr Q2H30M PRN IV PATENCY; Start 09/18/16 at 13:47; Stop 09/19/16 at 01:46; Status DC Info 1 each 1 each PRN DAILY PRN MC SEE COMMENTS; Start 09/18/16 at 14:00; Status UNV Sodium Chloride 1,000 ml @ 1,000 mls/hr Q1H PRN IV hypotension; Start 09/20/16 at 07:30; Stop 09/20/16 at 18:00; Status DC Albumin Human (Albuminar) 200 ml @ 200 mls/hr 1X PRN PRN IV Hypotension; Start 09/20/16 at 07:45; Stop 09/20/16 at 14:00; Status DC Acetaminophen (Tylenol) 500 mg 1X PRN PRN PO MILD PAIN / TEMP; Start 09/20/16 at 07:45; Stop 09/20/16 at 18:00; Status DC Diphenhydramine HCl (Benadryl) 25 mg 1X PRN PRN IV ITCHING; Start 09/20/16 at 07 :45; Stop 09/20/16 at 18:00; Status DC Diphenhydramine HCl (Benadryl) 25 mg 1X PRN PRN IV ITCHING; Start 09/20/16 at 07 :45; Stop 09/20/16 at 18:00; Status DC Sodium Chloride (Normal Saline Flush) 10 ml 1X PRN PRN IV AP catheter pack; Start 09/20/16 at 07:45; Stop 09/20/16 at 18:00; Status DC Sodium Chloride (Normal Saline Flush) 10 ml 1X PRN PRN IV ADVERTISING MANAGER catheter pack; Start 09/20/16 at 07:45; Stop 09/20/16 at 18:00; Status DC Labetalol HCl 10 mg 10 mg PRN Q1HR PRN IVP SBP > 180; Start 09/20/16 at 07:45; Stop 09/20/16 at 18:00; Status DC Sodium Chloride (Iv Sodium Chloride 0.9% 1000ml Bag) 1,000 ml @ 400 mls/hr Q2H30M PRN IV PATENCY; Start 09/20/16 at 07:45; Stop 09/20/16 at 18:00; Status DC Info (PHARMACY MONITORING -- do not chart) 1 each PRN DAILY PRN MC SEE COMMENTS ; Start 09/20/16 at 07:45; Status UNV Warfarin Sodium (Coumadin Per Pharmacy) 1 each PRN DAILY PRN MC SEE COMMENTS Last administered on 10/01/16t 14:03; Start 09/20/16 at 14:30 Warfarin Sodium (Coumadin) 2 mg 1X WARF ONCE PO Last administered on 09/20/16 17:27; Start 09/20/16 at 17:14; Stop 09/20/16 at 17:15; Status DC Methylprednisolone Acetate (Depo-Medrol 80mg Vial) 80 mg 1X ONCE IM ; Start 09/20/16 at 17:30; Stop 09/20/16 at 17:33; Status DC Methylprednisolone Acetate (Depo-Medrol 40mg Vial) 40 mg 1X ONCE IM ; Start 09/20/16 at 17:30; Stop 09/20/16 at 17:33; Status DC Bupivacaine HCl (Sensorcaine-Mpf 0.25%) 10 ml 1X ONCE IJ ; Start 09/20/16 at 17: 30; Stop 09/20/16 at 17:33; Status DC Warfarin Sodium (Coumadin) 2 mg 1X WARF ONCE PO Last administered on 09/21/16 17:14; Start 09/21/16 at 16:00; Stop 09/21/16 at 16:01; Status DC Warfarin Sodium 3 mg 3 mg 1X WARF ONCE PO Last administered on 09/22/16 17:28 ; Start 09/22/16 at 16:00; Stop 09/22/16 at 16:01; Status DC Sodium Chloride (Iv Sodium Chloride 0.9% 1000ml Bag) 1,000 ml @ 1,000 mls/hr Q1H PRN IV hypotension; Start 09/23/16 at 14:18; Stop 09/23/16 at 21:00; Status DC Sodium Chloride (Normal Saline Flush) 10 ml 1X PRN PRN IV AP catheter pack; Start 09/23/16 at 14:30; Stop 09/23/16 at 21:00; Status DC Sodium Chloride (Normal Saline Flush) 10 ml 1X PRN PRN IV ADVERTISING MANAGER catheter pack; Start 09/23/16 at 14:30; Stop 09/23/16 at 21:00; Status DC Info (PHARMACY MONITORING -- do not chart) 1 each PRN DAILY PRN MC SEE COMMENTS ; Start 09/23/16 at 14:30; Status UNV Info (PHARMACY MONITORING -- do not chart) 1 each PRN DAILY PRN MC SEE COMMENTS ; Start 09/23/16 at 14:30; Status UNV Warfarin Sodium (Coumadin) 3 mg 1X ONCE PO Last administered on 09/23/16 17:34 ; Start 09/23/16 at 17:00; Stop 09/23/16 at 17:01; Status DC Lidocaine/Sodium Bicarbonate (Buffered Lidocaine 1%) 20 ml STK-MED ONCE IJ ; Start 09/24/16 at 14:59; Stop 09/24/16 at 15:00; Status DC Fentanyl Citrate (Fentanyl 2ml Vial) 100 mcg STK-MED ONCE .ROUTE ; Start at 15:05; Stop 09/24/16 at 15:06; Status DC Midazolam HCl (Versed) 2 mg STK-MED ONCE .ROUTE ; Start 09/24/16 at 15:05; Stop 09/24/16 at 15:06; Status DC Lidocaine/Sodium Bicarbonate (Buffered Lidocaine 1%) 20 ml 1X ONCE IJ Last administered on 09/24/16 16:13; Start 09/24/16 at 16:15; Stop 09/24/16 at 16:16; Status DC Midazolam HCl (Versed) 2 mg 1X ONCE IV Last administered on 09/24/16 16:14; Start 09/24/16 at 16:15; Stop 09/24/16 at 16:16; Status DC Fentanyl Citrate (Fentanyl 2ml Vial) 100 mcg 1X ONCE IV Last administered on 16:15; Start 09/24/16 at 16:15; Stop 09/24/16 at 16:16; Status DC Warfarin Sodium 2 mg 2 mg 1X ONCE PO Last administered on 09/24/16 16:35; Start 09/24/16 at 17:00; Stop 09/24/16 at 17:01; Status DC Sodium Chloride 1,000 ml @ 1,000 mls/hr Q1H PRN IV hypotension; Start 09/25/16 at 08:38; Stop 09/25/16 at 14:37; Status DC Albumin Human (Albuminar) 200 ml @ 200 mls/hr 1X PRN PRN IV Hypotension; Start 09/25/16 at 08:45; Stop 09/25/16 at 14:44; Status DC Acetaminophen (Tylenol) 500 mg 1X PRN PRN PO MILD PAIN / TEMP; Start 09/25/16 at 08:45; Stop 09/26/16 at 08:44; Status DC Diphenhydramine HCl (Benadryl) 25 mg 1X PRN PRN IV ITCHING; Start 09/25/16 at 08 :45; Stop 09/26/16 at 08:44; Status DC Info (PHARMACY MONITORING -- do not chart) 1 each PRN DAILY PRN MC SEE COMMENTS ; Start 09/25/16 at 08:45; Status UNV Vancomycin HCl 1 each 1 each PRN DAILY PRN MC SEE COMMENTS Last administered on 10/01/16 15:08; Start 09/25/16 at 09:15 Piperacillin Sod/ Tazobactam Sod 2.25 gm/Sodium Chloride 50 ml @ 100 mls/hr Q6HRS IV Last administered on 10/02/16 05:20; Start 09/25/16 at 10:00; Stop at 08:30; Status DC Vancomycin HCl/ Sodium Chloride (Iv Sodium Chloride 0.9% 500ml Bag) 500 ml @ 250 mls/hr ONCE ONCE IV Last administered on 09/25/16 13:32; Start 09/25/16 at 10:00; Stop 09/25/16 at 11:59; Status DC Warfarin Sodium (Coumadin) 4 mg 1X WARF ONCE PO ; Start 09/25/16 at 16:00; Stop 09/25/16 at 16:00; Status DC Warfarin Sodium 3 mg 3 mg 1X WARF ONCE PO Last administered on 09/25/16 16:00 ; Start 09/25/16 at 16:00; Stop 09/25/16 at 16:01; Status DC Magnesium Sulfate/ Dextrose (Magnesium Sulfate PREMIX 2GM) 50 ml @ 25 mls/hr PRN DAILY PRN IV for Mag < 1.7 on am labs Last administered on 09/28/16 18:18 ; Start 09/26/16 at 11:15 Darbepoetin Ernst (Aranesp) 100 mcg Th SQ Last administered on 09/26/16 20:40; Start 09/26/16 at 21:00 Amlodipine Besylate (Norvasc) 2.5 mg DAILY PO Last administered on 09/26/16 12: 21; Start 09/26/16 at 11:00; Stop 09/26/16 at 14:02; Status DC Amlodipine Besylate (Norvasc) 5 mg DAILY PO Last administered on 10/01/16 08: 16; Start 09/27/16 at 09:00 Warfarin Sodium (Coumadin) 5 mg 1X WARF ONCE PO Last administered on 09/26/16 16:15; Start 09/26/16 at 16:00; Stop 09/26/16 at 16:01; Status DC Vancomycin HCl 1 each 1 each 1X ONCE MC ; Start 09/27/16 at 16:00; Stop at 16:01; Status DC Sodium Chloride 1,000 ml @ 1,000 mls/hr Q1H PRN IV hypotension; Start 09/27/16 at 09:47; Stop 09/27/16 at 15:46; Status DC Albumin Human (Albuminar) 200 ml @ 200 mls/hr 1X PRN PRN IV Hypotension; Start 09/27/16 at 10:00; Stop 09/27/16 at 15:59; Status DC Acetaminophen (Tylenol) 500 mg 1X PRN PRN PO MILD PAIN / TEMP; Start 09/27/16 at 10:00; Stop 09/28/16 at 09:59; Status DC Diphenhydramine HCl (Benadryl) 25 mg 1X PRN PRN IV ITCHING; Start 09/27/16 at 10:00; Stop 09/28/16 at 09:59; Status DC Diphenhydramine HCl (Benadryl) 25 mg 1X PRN PRN IV ITCHING; Start 09/27/16 at 10:00; Stop 09/28/16 at 09:59; Status DC Labetalol HCl 10 mg 10 mg PRN Q1HR PRN IVP SBP > 180; Start 09/27/16 at 10:00; Stop 09/28/16 at 09:59; Status DC Sodium Chloride (Iv Sodium Chloride 0.9% 1000ml Bag) 1,000 ml @ 400 mls/hr Q2H30M PRN IV PATENCY; Start 09/27/16 at 09:47; Stop 09/27/16 at 21:46; Status DC Info (PHARMACY MONITORING -- do not chart) 1 each PRN DAILY PRN MC SEE COMMENTS ; Start 09/27/16 at 10:00; Status UNV Warfarin Sodium 5 mg 5 mg 1X WARF ONCE PO Last administered on 09/27/16t 17:11 ; Start 09/27/16 at 16:00; Stop 09/27/16 at 16:01; Status DC Vancomycin HCl/ Sodium Chloride (Iv Sodium Chloride 0.9% 250ml) 250 ml @ 250 mls/hr ONCE ONCE IV Last administered on 09/27/16 21:15; Start 09/27/16 at 20 :10; Stop 09/27/16 at 21:09; Status DC Potassium Chloride (Klor-Con) 40 meq 1X ONCE PO Last administered on 12:04; Start 09/28/16 at 12:30; Stop 09/28/16 at 12:31; Status DC Warfarin Sodium (Coumadin) 4 mg 1X WARF ONCE PO Last administered on 15:32; Start 09/28/16 at 16:00; Stop 09/28/16 at 16:01; Status DC Warfarin Sodium 4 mg 4 mg 1X WARF ONCE PO Last administered on 09/29/16 17:06 ; Start 09/29/16 at 16:00; Stop 09/29/16 at 16:01; Status DC Vancomycin HCl 500 mg/Sodium Chloride 100 ml @ 100 mls/hr QMWF IV Last administered on 09/30/16 15:47; Start 09/30/16 at 16:00 Sodium Chloride (Iv Sodium Chloride 0.9% 1000ml Bag) 1,000 ml @ 1,000 mls/hr Q1H PRN IV hypotension; Start 09/30/16 at 08:00; Stop 09/30/16 at 13:59; Status DC Acetaminophen (Tylenol) 500 mg 1X PRN PRN PO MILD PAIN / TEMP; Start 09/30/16 at 09:00; Stop 10/01/16 at 08:59; Status DC Diphenhydramine HCl (Benadryl) 25 mg 1X PRN PRN IV ITCHING; Start 09/30/16 at 09:00; Stop 10/01/16 at 08:59; Status DC Diphenhydramine HCl 25 mg 25 mg 1X PRN PRN IV ITCHING; Start 09/30/16 at 09:00 ; Stop 10/01/16 at 08:59; Status DC Sodium Chloride (Iv Sodium Chloride 0.9% 1000ml Bag) 1,000 ml @ 400 mls/hr Q2H30M PRN IV PATENCY; Start 09/30/16 at 08:00; Stop 09/30/16 at 19:59; Status DC Info (PHARMACY MONITORING -- do not chart) 1 each PRN DAILY PRN MC SEE COMMENTS ; Start 09/30/16 at 09:00 Warfarin Sodium (Coumadin) 4 mg 1X WARF ONCE PO Last administered on t 17:12; Start 09/30/16 at 16:00; Stop 09/30/16 at 16:01; Status DC Warfarin Sodium 4 mg 4 mg 1X WARF ONCE PO Last administered on 10/01/16t 17:12 ; Start 10/01/16 at 16:00; Stop 10/01/16 at 16:01; Status DC Sodium Chloride 1,000 ml @ 1,000 mls/hr Q1H PRN IV hypotension; Start 10/02/16 at 07:28; Stop 10/02/16 at 13:27 Albumin Human (Albuminar) 200 ml @ 200 mls/hr 1X PRN PRN IV Hypotension; Start 10/02/16 at 07:30; Stop 10/02/16 at 13:29 Acetaminophen (Tylenol) 500 mg 1X PRN PRN PO MILD PAIN / TEMP; Start 10/02/16 at 07:30; Stop 10/03/16 at 07:29 Diphenhydramine HCl (Benadryl) 25 mg 1X PRN PRN IV ITCHING; Start 10/02/16 at 07:30; Stop 10/03/16 at 07:29 Diphenhydramine HCl (Benadryl) 25 mg 1X PRN PRN IV ITCHING; Start 10/02/16 at 07:30; Stop 10/03/16 at 07:29 Labetalol HCl 10 mg 10 mg PRN Q1HR PRN IVP SBP > 180; Start 10/02/16 at 07:30; Stop 10/03/16 at 07:29 Sodium Chloride (Iv Sodium Chloride 0.9% 1000ml Bag) 1,000 ml @ 400 mls/hr Q2H30M PRN IV PATENCY; Start 10/02/16 at 07:28; Stop 10/02/16 at 19:27 Info (PHARMACY MONITORING -- do not chart) 1 each PRN DAILY PRN MC SEE COMMENTS ; Start 10/02/16 at 07:30; Status UNV Gentamicin Sulfate 1 each 1 each PRN DAILY PRN MC SEE COMMENTS; Start 10/02/16 at 08:30 Gentamicin Sulfate/Sodium Chloride (Iv Sodium Chloride 0.9% 100ml) 102 ml @ 204 mls/hr 1X ONCE IV ; Start 10/02/16 at 09:30; Stop 10/02/16 at 09:59; Status DC Active Scripts Active Reported [Mylanta] Tylenol (Acetaminophen) 325 Mg Tablet 1 Tab PO PRN Q4HRS Fleet Enema (Na Phos,M-B/Na Phos,Di-Ba) 133 Ml Enema 1 Each RC ONCE Dulcolax (Bisacodyl) 10 Mg Supp.rect 10 Mg RC PRN DAILY PRN Zofran Odt (Ondansetron) 8 Mg Tab.rapdis 1 Tab PO PRN Q8HRS PRN Nitrostat (Nitroglycerin) 0.4 Mg Tab.subl 1 Tab SL UD Cyclobenzaprine Hcl 10 Mg Tablet 1 Tab PO TID Zepatier 50-100 mg Tablet (Elbasvir/Grazoprevir) 1 Each Tablet 1 Each PO [PhosLo] Coreg (Carvedilol) 25 Mg Tablet 1 Tab PO BID Aspirin 81 Mg Tab.chew 1 Tab PO DAILY Allopurinol 100 Mg Tablet 1 Tab PO DAILY Ventolin Hfa Inhaler (Albuterol Sulfate) 18 Gm Hfa.aer.ad 2 Puff INH Q4HRS Nephplex Rx Tablet (Vit B Cmplx No3/Fa/C/Biot/Zinc) 1 Each Tablet 1 Each PO Senokot (Sennosides) 8.6 Mg Tablet 1 Tab PO BID Oxycontin (Oxycodone HCl) 10 Mg Tab.er.12h 10 Mg PO BID Glycolax (Polyethylene Glycol 3350) 119 Gm Powder 17 Gm PO UD Percocet 10-325 Mg Tablet (Oxycodone/Acetaminophen) 1 Each Tablet 1 Tab PO Q4- 6HRS Vitamin D3 (Cholecalciferol (Vitamin D3)) 1,000 Unit Tablet 1 Tab PO DAILY Advair 250-50 Diskus (Fluticasone/Salmeterol) 1 Each Disk.w.dev 1 Puff IH BID Ipratropium [place] 0.2 Mg/1 Ml Solution 1 Vial NEB QID Lidoderm (Lidocaine) 700 Mg Adh..patch 1 Patch TP DAILY Nortriptyline Hcl 25 Mg Capsule 1 Cap PO QHS Warfarin Sodium 2 Mg Tablet 1.5 Mg PO DAILY Gabapentin 300 Mg Capsule 300 Mg PO TID Zoloft (Sertraline Hcl) 100 Mg Tablet 1 Tab PO DAILY Vitals/I & O Vital Sign - Last 24 Hours 10/01/16 10/01/16 10/01/16 10/01/16 10:52 11:28 12:16 12:40 Temp 97.7 97.7 Pulse 77 Resp 18 B/P 157/90 Pulse Ox 97 97 97 O2 Delivery Room Air Room Air Room Air O2 Flow Rate 97.0 97.0 10/01/16 10/01/16 10/01/16 10/01/16 13:40 15:06 15:18 17:12 Temp 97.7 97.7 Pulse 79 Resp 18 B/P 155/83 Pulse Ox 97 97 O2 Delivery Room Air Room Air Room Air O2 Flow Rate 97.0 10/01/16 10/01/16 10/01/16 10/01/16 17:13 19:00 19:26 20:00 Temp 97.7 97.7 Pulse 85 115 Resp 20 B/P 169/88 135/70 Pulse Ox 96 O2 Delivery Room Air Room Air 10/01/16 10/01/16 10/01/16 10/01/16 20:22 20:37 20:38 22:31 Temp 97.8 97.8 Pulse 75 Resp 20 19 B/P 163/86 Pulse Ox 95 95 94 O2 Delivery Room Air Room Air Room Air Room Air 10/02/16 10/02/16 10/02/16 10/02/16 00:00 00:45 05:21 06:22 Resp 18 18 20 18 O2 Delivery Room Air Room Air Room Air Room Air 10/02/16 10/02/16 06:47 07:00 Temp 97.3 97.3 Pulse 85 Resp 20 B/P 174/85 Pulse Ox 94 95 O2 Delivery Room Air Room Air Intake and Output 10/01/16 10/01/16 10/02/16 15:00 23:00 07:00 Intake Total 480 ml 1020 ml 300 ml Balance 480 ml 1020 ml 300 ml CAROLANN PRUETT MD Oct 02, 2016 10:09
[2016-10-02 10:45] VITALS: BP 162/87
--- NOTE | 2016-10-02 11:14 | PDOC ---
Renal-Progress Notes Subjective Notes Notes FEELING BETTER History of Present Illness Hx of present illness BETTER Vitals Vitals Vital Signs Date Time Temp Pulse Resp B/P Pulse Ox O2 Delivery O2 Flow Rate FiO2 10/02/16 10:45 73 162/87 10/02/16 07:00 97.3 20 95 Room Air 97.3 10/01/16 13:40 97.0 Weight Weight [ ] I.O. Intake and Output Intake and Output 10/02/16 07:00 Intake Total 1800 ml Balance 1800 ml Intake Oral 1800 ml # Voids 2 # Bowel Movements 2 Labs Labs Laboratory Tests Test 10/01/16 16:24 10/01/16 20:18 10/02/16 05:40 10/02/16 07:08 Glucose (Fingerstick) 117mg/dL (70-99) 134mg/dL (70-99) 89mg/dL (70-99) White Blood Count 10.8x10^3/uL (4.0-11.0) Red Blood Count 2.81x10^6/uL (3.50-5.40) Hemoglobin 7.6g/dL (12.0-15.5) Hematocrit 24.5% (36.0-47.0) Mean Corpuscular Volume 87fL (79-100) Mean Corpuscular Hemoglobin 27pg (25-35) Mean Corpuscular Hemoglobin Concent 31g/dL (31-37) Red Cell Distribution Width 18.9% (11.5-14.5) Platelet Count 236x10^3/uL (140-400) Neutrophils (%) (Auto) 68% (31-73) Lymphocytes (%) (Auto) 22% (24-48) Monocytes (%) (Auto) 8% (0-9) Eosinophils (%) (Auto) 2% (0-3) Basophils (%) (Auto) 1% (0-3) Neutrophils # (Auto) 7.3x10^3uL (1.8-7.7) Lymphocytes # (Auto) 2.3x10^3/uL (1.0-4.8) Monocytes # (Auto) 0.9x10^3/uL (0.0-1.1) Eosinophils # (Auto) 0.2x10^3/uL (0.0-0.7) Basophils # (Auto) 0.1x10^3/uL (0.0-0.2) Sodium Level 138mmol/L (136-145) Potassium Level 3.7mmol/L (3.5-5.1) Chloride Level 102mmol/L (98-107) Carbon Dioxide Level 27mmol/L (21-32) Anion Gap 9 (6-14) Blood Urea Nitrogen 20mg/dL (7-20) Creatinine 3.6mg/dL (0.6-1.0) Estimated GFR (Cockcroft-Gault) 15.6 Glucose Level 91mg/dL (70-99) Calcium Level 8.3mg/dL (8.5-10.1) Phosphorus Level 2.9mg/dL (2.6-4.7) Albumin 1.7g/dL (3.4-5.0) Test 10/02/16 10:37 Glucose (Fingerstick) 90mg/dL (70-99) Micro Micro Microbiology 09/24/16 Blood Culture - Final, Complete NO GROWTH AFTER 5 DAYS 09/24/16 Anaerobic/Aerobic Culture - Final, Complete 09/24/16 Anaerobic Culture Result 1 (CONNOR) - Final, Complete 09/24/16 Aerobic Culture - Final, Complete 09/24/16 Aerobic Culture Result 1 (CONNOR) - Final, Complete Review of Systems Constitutional: yes: alert, oriented, weakness Ears/Nose/Throat: Yes: no symptom reported Gastrointestional: Yes: melena Genitourinary: Yes: no symptom reported Skin: Yes no symptom reported Physical Exam General Appearance: no apparent distress Skin: warm Respiratory: bilateral CTA Heart: S1S2 Abdomen: soft, bowel sounds present Extremities: pulses present Neurology: alert, oriented Assessment Assessment IMP ANEMIA GI BLEED ESRD GASTRITIS RIGHT RENAL CYST-COMPLICATED DISKITIS PLAN HD TODAY UF TO [facility] AND ANTIBIOTICS OP ANTIBIOTICS ORDERED WILL NEED OP F/U OF RENAL CYST IN ABOUT 6 MONTHS SERVANDO PATTERSON MD Oct 02, 2016 11:14
[2016-10-02] MEDS: AMLODIPINE BESYLATE 5 MG TABLET PO SCH (12:43)
[2016-10-02] MEDS: SERTRALINE 50 MG TABLET. PO SCH (12:43)
[2016-10-02] MEDS: PANTOPRAZOLE 40 MG TABLET. PO SCH (12:43)
[2016-10-02] MEDS: OXYCODONE ER 10 MG TAB.ER.12H. PO SCH (12:44)
[2016-10-02] MEDS: ALLOPURINOL 100 MG TABLET. PO SCH (12:44)
[2016-10-02] MEDS: GABAPENTIN 300 MG CAPSULE. PO SCH (12:44)
[2016-10-02] MEDS: CARVEDILOL 12.5 MG TABLET PO SCH (12:44)
[2016-10-02] MEDS: LIDOCAINE (700MG/PATCH) PATCH. TP SCH (12:45)
[2016-10-02] MEDS: CYCLOBENZAPRINE 10 MG TABLET. PO PRN (12:50)
--- NOTE | 2016-10-02 13:26 | PDOC ---
Subjective: Subjective: No GI complaints. Objective: Objective: Issues with insurance prevented DC yesterday. Again planned for today. No GI concerns per RN. Vital Signs: Vital Signs Date Time Temp Pulse Resp B/P Pulse Ox O2 Delivery O2 Flow Rate FiO2 10/02/16 12:50 Room Air 10/02/16 12:44 101 162/84 10/02/16 07:00 97.3 20 95 97.3 10/01/16 13:40 97.0 Labs: Laboratory Tests Test 10/01/16 16:24 10/01/16 20:18 10/02/16 05:40 10/02/16 07:08 Glucose (Fingerstick) 117mg/dL 134mg/dL 89mg/dL White Blood Count 10.8x10^3/uL Red Blood Count 2.81x10^6/uL Hemoglobin 7.6g/dL Hematocrit 24.5% Mean Corpuscular Volume 87fL Mean Corpuscular Hemoglobin 27pg Mean Corpuscular Hemoglobin Concent 31g/dL Red Cell Distribution Width 18.9% Platelet Count 236x10^3/uL Neutrophils (%) (Auto) 68% Lymphocytes (%) (Auto) 22% Monocytes (%) (Auto) 8% Eosinophils (%) (Auto) 2% Basophils (%) (Auto) 1% Neutrophils # (Auto) 7.3x10^3uL Lymphocytes # (Auto) 2.3x10^3/uL Monocytes # (Auto) 0.9x10^3/uL Eosinophils # (Auto) 0.2x10^3/uL Basophils # (Auto) 0.1x10^3/uL Sodium Level 138mmol/L Potassium Level 3.7mmol/L Chloride Level 102mmol/L Carbon Dioxide Level 27mmol/L Anion Gap 9 Blood Urea Nitrogen 20mg/dL Creatinine 3.6mg/dL Estimated GFR (Cockcroft-Gault) 15.6 Glucose Level 91mg/dL Calcium Level 8.3mg/dL Phosphorus Level 2.9mg/dL Albumin 1.7g/dL Test 10/02/16 10:37 Glucose (Fingerstick) 90mg/dL PE: GEN: NAD NEURO/PSYCH: A & O 3 A/P: Anemia -no further bleeding, Hgb stable/improved on Coumadin w/ PPI -EGD 09/18 w/ non-erosive gastritis, reports normal colonoscopy @[facility] last year -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 D/w RN. JORGE YANG Oct 02, 2016 13:26
--- NOTE | 2016-10-02 13:29 | PDOC ---
PROGRESS NOTES Chief Complaint Chief Complaint Anemia History of Present Illness History of Present Illness Patient with no acute events overnight. She continues to feel better day by day. Still planning to go to the [facility] upon discharge. Is awaiting approval from insurance company. States she may be calling her insurance herself to take care of it. Vitals Vitals Vital Signs Date Time Temp Pulse Resp B/P Pulse Ox O2 Delivery O2 Flow Rate FiO2 10/02/16 12:50 Room Air 10/02/16 12:44 101 162/84 10/02/16 07:00 97.3 20 95 97.3 10/01/16 13:40 97.0 Physical Exam General: Alert, Cooperative, No acute distress Heart: Regular rate, Normal S1, Normal S2, No murmurs Lungs: Clear Abdomen: Soft, No tenderness Extremities: No cyanosis, No edema Skin: No breakdown, No significant lesion Labs LABS Laboratory Tests Test 10/01/16 16:24 10/01/16 20:18 10/02/16 05:40 10/02/16 07:08 Glucose (Fingerstick) 117mg/dL (70-99) 134mg/dL (70-99) 89mg/dL (70-99) White Blood Count 10.8x10^3/uL (4.0-11.0) Red Blood Count 2.81x10^6/uL (3.50-5.40) Hemoglobin 7.6g/dL (12.0-15.5) Hematocrit 24.5% (36.0-47.0) Mean Corpuscular Volume 87fL (79-100) Mean Corpuscular Hemoglobin 27pg (25-35) Mean Corpuscular Hemoglobin Concent 31g/dL (31-37) Red Cell Distribution Width 18.9% (11.5-14.5) Platelet Count 236x10^3/uL (140-400) Neutrophils (%) (Auto) 68% (31-73) Lymphocytes (%) (Auto) 22% (24-48) Monocytes (%) (Auto) 8% (0-9) Eosinophils (%) (Auto) 2% (0-3) Basophils (%) (Auto) 1% (0-3) Neutrophils # (Auto) 7.3x10^3uL (1.8-7.7) Lymphocytes # (Auto) 2.3x10^3/uL (1.0-4.8) Monocytes # (Auto) 0.9x10^3/uL (0.0-1.1) Eosinophils # (Auto) 0.2x10^3/uL (0.0-0.7) Basophils # (Auto) 0.1x10^3/uL (0.0-0.2) Sodium Level 138mmol/L (136-145) Potassium Level 3.7mmol/L (3.5-5.1) Chloride Level 102mmol/L (98-107) Carbon Dioxide Level 27mmol/L (21-32) Anion Gap 9 (6-14) Blood Urea Nitrogen 20mg/dL (7-20) Creatinine 3.6mg/dL (0.6-1.0) Estimated GFR (Cockcroft-Gault) 15.6 Glucose Level 91mg/dL (70-99) Calcium Level 8.3mg/dL (8.5-10.1) Phosphorus Level 2.9mg/dL (2.6-4.7) Albumin 1.7g/dL (3.4-5.0) Test 10/02/16 10:37 Glucose (Fingerstick) 90mg/dL (70-99) Review of Systems Review of Systems denies fever, chills denies chest pain, shortness of air Assessment and Plan Assessmemt and Plan ASSESSMENT: 1. Acute blood loss anemia, GI bleed, s/p EGD 2. ESRD, on HD MWF 3. Coumadin coagulopathy, 4. Hypertension, controlled 5. History of asthma 6. Obesity 7. Back pain with possible discitis 8. A fib on Coumadin 9. SNU resident 10. RCC vs renal complex cyst - NEW 11. Discitis vs OM - back -NEW 12. Right renal cysts 13. Hypomagnesemia PLAN: Probable discharge to SNF ([facility] care center) today. SW reports coverage authorization is pending Continue antibiotic therapy upon discharge as per ID- Vanc and Gent Continue Hemodialysis per Nephrology recommendation Continue to monitor daily labs PT/OT eval and treat ID, Renal, Urology and GI consulted, their recommendations are appreciated Problems: Comment Review of Relevant I have reviewed the following items christi (where applicable) has been applied. Labs Laboratory Tests Test 09/30/16 16:03 09/30/16 20:39 10/01/16 03:25 10/01/16 07:16 Glucose (Fingerstick) 91mg/dL (70-99) 117mg/dL (70-99) 108mg/dL (70-99) White Blood Count 9.8x10^3/uL (4.0-11.0) Red Blood Count 2.61x10^6/uL (3.50-5.40) Hemoglobin 7.3g/dL (12.0-15.5) Hematocrit 22.6% (36.0-47.0) Mean Corpuscular Volume 86fL (79-100) Mean Corpuscular Hemoglobin 28pg (25-35) Mean Corpuscular Hemoglobin Concent 32g/dL (31-37) Red Cell Distribution Width 18.2% (11.5-14.5) Platelet Count 236x10^3/uL (140-400) Neutrophils (%) (Auto) 69% (31-73) Lymphocytes (%) (Auto) 19% (24-48) Monocytes (%) (Auto) 9% (0-9) Eosinophils (%) (Auto) 2% (0-3) Basophils (%) (Auto) 0% (0-3) Neutrophils # (Auto) 6.8x10^3uL (1.8-7.7) Lymphocytes # (Auto) 1.9x10^3/uL (1.0-4.8) Monocytes # (Auto) 0.9x10^3/uL (0.0-1.1) Eosinophils # (Auto) 0.2x10^3/uL (0.0-0.7) Basophils # (Auto) 0.0x10^3/uL (0.0-0.2) Prothrombin Time 23.3SEC (11.7-14.0) Prothromb Time International Ratio 2.2 (0.8-1.1) Sodium Level 138mmol/L (136-145) Potassium Level 3.5mmol/L (3.5-5.1) Chloride Level 101mmol/L (98-107) Carbon Dioxide Level 29mmol/L (21-32) Anion Gap 8 (6-14) Blood Urea Nitrogen 14mg/dL (7-20) Creatinine 2.5mg/dL (0.6-1.0) Estimated GFR (Cockcroft-Gault) 23.8 Glucose Level 125mg/dL (70-99) Calcium Level 8.4mg/dL (8.5-10.1) Phosphorus Level 2.0mg/dL (2.6-4.7) Magnesium Level 1.8mg/dL (1.8-2.4) Albumin 1.7g/dL (3.4-5.0) Test 10/01/16 10:19 10/01/16 16:24 10/01/16 20:18 10/02/16 05:40 Glucose (Fingerstick) 106mg/dL (70-99) 117mg/dL (70-99) 134mg/dL (70-99) White Blood Count 10.8x10^3/uL (4.0-11.0) Red Blood Count 2.81x10^6/uL (3.50-5.40) Hemoglobin 7.6g/dL (12.0-15.5) Hematocrit 24.5% (36.0-47.0) Mean Corpuscular Volume 87fL (79-100) Mean Corpuscular Hemoglobin 27pg (25-35) Mean Corpuscular Hemoglobin Concent 31g/dL (31-37) Red Cell Distribution Width 18.9% (11.5-14.5) Platelet Count 236x10^3/uL (140-400) Neutrophils (%) (Auto) 68% (31-73) Lymphocytes (%) (Auto) 22% (24-48) Monocytes (%) (Auto) 8% (0-9) Eosinophils (%) (Auto) 2% (0-3) Basophils (%) (Auto) 1% (0-3) Neutrophils # (Auto) 7.3x10^3uL (1.8-7.7) Lymphocytes # (Auto) 2.3x10^3/uL (1.0-4.8) Monocytes # (Auto) 0.9x10^3/uL (0.0-1.1) Eosinophils # (Auto) 0.2x10^3/uL (0.0-0.7) Basophils # (Auto) 0.1x10^3/uL (0.0-0.2) Sodium Level 138mmol/L (136-145) Potassium Level 3.7mmol/L (3.5-5.1) Chloride Level 102mmol/L (98-107) Carbon Dioxide Level 27mmol/L (21-32) Anion Gap 9 (6-14) Blood Urea Nitrogen 20mg/dL (7-20) Creatinine 3.6mg/dL (0.6-1.0) Estimated GFR (Cockcroft-Gault) 15.6 Glucose Level 91mg/dL (70-99) Calcium Level 8.3mg/dL (8.5-10.1) Phosphorus Level 2.9mg/dL (2.6-4.7) Albumin 1.7g/dL (3.4-5.0) Test 10/02/16 07:08 10/02/16 10:37 Glucose (Fingerstick) 89mg/dL (70-99) 90mg/dL (70-99) Laboratory Tests Test 10/01/16 16:24 10/01/16 20:18 10/02/16 05:40 10/02/16 07:08 Glucose (Fingerstick) 117mg/dL (70-99) 134mg/dL (70-99) 89mg/dL (70-99) White Blood Count 10.8x10^3/uL (4.0-11.0) Red Blood Count 2.81x10^6/uL (3.50-5.40) Hemoglobin 7.6g/dL (12.0-15.5) Hematocrit 24.5% (36.0-47.0) Mean Corpuscular Volume 87fL (79-100) Mean Corpuscular Hemoglobin 27pg (25-35) Mean Corpuscular Hemoglobin Concent 31g/dL (31-37) Red Cell Distribution Width 18.9% (11.5-14.5) Platelet Count 236x10^3/uL (140-400) Neutrophils (%) (Auto) 68% (31-73) Lymphocytes (%) (Auto) 22% (24-48) Monocytes (%) (Auto) 8% (0-9) Eosinophils (%) (Auto) 2% (0-3) Basophils (%) (Auto) 1% (0-3) Neutrophils # (Auto) 7.3x10^3uL (1.8-7.7) Lymphocytes # (Auto) 2.3x10^3/uL (1.0-4.8) Monocytes # (Auto) 0.9x10^3/uL (0.0-1.1) Eosinophils # (Auto) 0.2x10^3/uL (0.0-0.7) Basophils # (Auto) 0.1x10^3/uL (0.0-0.2) Sodium Level 138mmol/L (136-145) Potassium Level 3.7mmol/L (3.5-5.1) Chloride Level 102mmol/L (98-107) Carbon Dioxide Level 27mmol/L (21-32) Anion Gap 9 (6-14) Blood Urea Nitrogen 20mg/dL (7-20) Creatinine 3.6mg/dL (0.6-1.0) Estimated GFR (Cockcroft-Gault) 15.6 Glucose Level 91mg/dL (70-99) Calcium Level 8.3mg/dL (8.5-10.1) Phosphorus Level 2.9mg/dL (2.6-4.7) Albumin 1.7g/dL (3.4-5.0) Test 10/02/16 10:37 Glucose (Fingerstick) 90mg/dL (70-99) Microbiology 09/24/16 Blood Culture - Final, Complete NO GROWTH AFTER 5 DAYS 09/24/16 Anaerobic/Aerobic Culture - Final, Complete 09/24/16 Anaerobic Culture Result 1 (CONNOR) - Final, Complete 09/24/16 Aerobic Culture - Final, Complete 09/24/16 Aerobic Culture Result 1 (CONNOR) - Final, Complete Medications Current Medications Oxycodone/ Acetaminophen (Percocet 5/325) 1 tab 1X ONCE PO ; Start 09/09/16 at 19:00; Stop 09/09/16 at 19:01; Status DC Hydromorphone HCl 1 mg 1 mg 1X ONCE IV Last administered on 09/09/16t 19:21; Start 09/09/16 at 19:15; Stop 09/09/16 at 19:16; Status DC Pantoprazole Sodium/Sodium Chloride (Protonix Iv/Iv Sodium Chloride 0.9% 100ml) 100 ml @ 10 mls/hr 1X ONCE IV Last administered on 09/09/16t 19:51; Start at 19:30; Stop 09/10/16 at 05:29; Status DC Ondansetron HCl 4 mg 4 mg PRN Q8HRS PRN IV NAUSEA/VOMITING Last administered on 09/09/16 19:51; Start 09/09/16 at 19:30; Stop 09/10/16 at 19:29; Status DC Sodium Chloride (Iv Sodium Chloride 0.9% 1000ml Bag) 1,000 ml @ 100 mls/hr Q10H IV Last administered on 09/09/16 19:51; Start 09/09/16 at 19:30; Stop at 06:00; Status DC Acetaminophen (Tylenol) 650 mg PRN Q4HRS PRN PO FEVER Last administered on 09/09 19:52; Start 09/09/16 at 19:30; Stop 09/10/16 at 19:29; Status DC Multi-Ingredient Mouthwash/Gargle 15 ml 15 ml 1X ONCE SWSW Last administered on 09/09/16 23:41; Start 09/09/16 at 23:30; Stop 09/09/16 at 23:31; Status DC Phytonadione/ Sodium Chloride (Vitamin K/Iv Sodium Chloride 0.9% 50ml) 51 ml @ 102 mls/hr 1X ONCE IV Last administered on 09/10/16 02:07; Start 09/10/16 at 00:00; Stop 09/10/16 at 00:29; Status DC Acetaminophen (Tylenol) 325 mg PRN Q4HRS PO ; Start 09/09/16 at 23:30; Stop at 23:30; Status DC Allopurinol (Zyloprim) 100 mg DAILY PO Last administered on 10/02/16 12:44; Start 09/10/16 at 09:00 Bisacodyl (Dulcolax Supp) 10 mg PRN DAILY PRN RC CONSTIPATION; Start 09/09/16 at 23:30 Cyclobenzaprine HCl (Flexeril) 10 mg PRN TID PRN PO back pain Last administered on 10/02/16 12:50; Start 09/09/16 at 23:30 Gabapentin (Neurontin) 300 mg DAILY PO Last administered on 10/02/16 12:44; Start 09/10/16 at 09:00 Ipratropium [place] (Atrovent) 0.2 mg QID NEB ; Start 09/10/16 at 09:00; Status UNV Lidocaine (Lidoderm) 1 patch DAILY TP Last administered on 10/02/16 12:45; Start 09/10/16 at 09:00 Nortriptyline HCl (Pamelor) 25 mg QHS PO Last administered on 10/01/16 20:21; Start 09/10/16 at 21:00 Oxycodone HCl (Oxycontin) 10 mg BID PO Last administered on 10/02/16 12:44; Start 09/10/16 at 09:00 Oxycodone/ Acetaminophen (Percocet 10/325) 1 tab PRN Q4HRS PRN PO SEVERE PAIN Last administered on 10/02/16 12:50; Start 09/09/16 at 23:30 Non-Formulary Medication 2 puff Q4HRS INH FOR ASTHMA; Start 09/10/16 at 00:00; Status UNV Carvedilol (Coreg) 25 mg BIDWMEALS PO Last administered on 10/02/16 12:44; Start 09/10/16 at 08:00 Non-Formulary Medication 1 puff BID IH ; Start 09/10/16 at 09:00; Status UNV Ondansetron HCl (Zofran Odt) 8 mg Q8HRS PO Last administered on 10/02/16 05:21 ; Start 09/10/16 at 06:00 Sertraline HCl (Zoloft) 100 mg DAILY PO Last administered on 10/02/16 12:43; Start 09/10/16 at 09:00 Labetalol HCl (Normodyne) 20 mg PRN Q2HR PRN IVP HYPERTENSION, SEE COMMENTS Last administered on 09/25/16 05:47; Start 09/09/16 at 23:30 Albuterol/ Ipratropium (Duoneb) 3 ml RTQID NEB Last administered on 10/02/16 06:46; Start 09/10/16 at 08:00 Budesonide (Pulmicort) 0.5 mg RTBID NEB Last administered on 10/02/16 06:46; Start 09/10/16 at 08:00 Albuterol Sulfate 2.5 mg 2.5 mg PRN Q4HRS PRN NEB SHORTNESS OF BREATH Last administered on 10/01/16 04:46; Start 09/09/16 at 23:30 Pantoprazole Sodium 80 mg/ Sodium Chloride 100 ml @ 10 mls/hr Q10H IV Last administered on 09/13/16 07:51; Start 09/10/16 at 10:00; Stop 09/13/16 at 09:59 ; Status DC Magnesium Sulfate/ Dextrose 50 ml @ 25 mls/hr PRN DAILY PRN IV for Mag < 1.7 on am labs; Start 09/10/16 at 10:00; Stop 09/22/16 at 11:36; Status DC Sodium Chloride (Iv Sodium Chloride 0.9% 1000ml Bag) 1,000 ml @ 1,000 mls/hr Q1H PRN IV hypotension; Start 09/11/16 at 08:50; Stop 09/11/16 at 14:49; Status DC Diphenhydramine HCl (Benadryl) 25 mg 1X PRN PRN IV ITCHING; Start 09/11/16 at 09:00; Stop 09/12/16 at 08:59; Status DC Diphenhydramine HCl (Benadryl) 25 mg 1X PRN PRN IV ITCHING; Start 09/11/16 at 09:00; Stop 09/12/16 at 08:59; Status DC Sodium Chloride (Normal Saline Flush) 10 ml 1X PRN PRN IV AP catheter pack; Start 09/11/16 at 09:00; Stop 09/12/16 at 08:59; Status DC Sodium Chloride (Normal Saline Flush) 10 ml 1X PRN PRN IV EMERGENCY DEPARTMENT DIRECTOR catheter pack; Start 09/11/16 at 09:00; Stop 09/12/16 at 08:59; Status DC Labetalol HCl 10 mg 10 mg PRN Q1HR PRN IVP SBP > 180; Start 09/11/16 at 09:00; Stop 09/12/16 at 08:59; Status DC Sodium Chloride (Iv Sodium Chloride 0.9% 1000ml Bag) 1,000 ml @ 400 mls/hr Q2H30M PRN IV PATENCY; Start 09/11/16 at 08:50; Stop 09/11/16 at 20:49; Status DC Info (PHARMACY MONITORING -- do not chart) 1 each PRN DAILY PRN MC SEE COMMENTS ; Start 09/11/16 at 09:00; Stop 09/30/16 at 14:09; Status DC Info (PHARMACY MONITORING -- do not chart) 1 each PRN DAILY PRN MC SEE COMMENTS ; Start 09/11/16 at 09:00; Status UNV Sodium Cl/Sod Bicarb/Potass Cl/ PEG (Golytely) 4,000 ml 1X ONCE PO Last administered on 09/11/16t 17:13; Start 09/11/16 at 13:00; Stop 09/11/16 at 13:01 ; Status DC Fentanyl Citrate (Fentanyl 2ml Vial) 25 mcg PRN Q5MIN PRN IV MILD PAIN; Start 09/12/16 at 07:00; Stop 09/13/16 at 06:59; Status DC Fentanyl Citrate 50 mcg 50 mcg PRN Q5MIN PRN IV MODERATE PAIN; Start 09/12/16 at 07:00; Stop 09/13/16 at 06:59; Status DC Lactated Ringer's (Iv Lactated Ringers) 1,000 ml @ 0 mls/hr Q0M IV ; Start at 07:00; Stop 09/12/16 at 18:59; Status DC Lidocaine HCl 2 ml 1X PRN PRN ID IV START; Start 09/12/16 at 07:00; Stop at 06:59; Status DC Prochlorperazine Edisylate (Compazine) 5 mg PACU PRN PRN IV NAUSEA; Start 09/12 at 07:00; Stop 09/13/16 at 06:59; Status DC Pantoprazole Sodium 40 mg 40 mg DAILYAC IVP ; Start 09/13/16 at 07:30; Status UNV Magnesium Sulfate/ Dextrose 50 ml @ 25 mls/hr 1X ONCE IV ; Start 09/12/16 at 11 :30; Stop 09/12/16 at 13:29; Status DC Propofol 0 ml @ As Directed STK-MED ONCE IV ; Start 09/12/16 at 12:55; Stop at 12:56; Status DC Propofol (Diprivan) 20 ml @ As Directed STK-MED ONCE IV ; Start 09/12/16 at 12: 55; Stop 09/12/16 at 12:56; Status Cancel Lidocaine HCl (Lidocaine Pf 2% Vial) 5 ml STK-MED ONCE .ROUTE ; Start 09/12/16 at 12:55; Stop 09/12/16 at 12:56; Status DC Lorazepam (Ativan) 2 mg PRN Q4HRS PRN IV ANXIETY / AGITATION Last administered on 09/26/16t 03:00; Start 09/12/16 at 14:15 Lorazepam (Ativan) 2 mg Q4HRS PRN IV ANXIETY / AGITATION; Start 09/12/16 at 14: 15; Status UNV Haloperidol Lactate (Haldol) 2.5 mg PRN Q6HRS PRN IM AGITATION; Start 09/12/16 at 14:15; Stop 09/26/16 at 14:02; Status DC Haloperidol Lactate (Haldol) 2.5 mg PRN Q6HRS PRN IVP AGITATION; Start at 14:15; Stop 09/26/16 at 14:02; Status DC Lorazepam 2 mg 2 mg PRN Q4HRS PRN IM ANXIETY / AGITATION; Start 09/12/16 at 14: 30; Stop 09/17/16 at 14:37; Status DC Sodium Chloride (Iv Sodium Chloride 0.9% 1000ml Bag) 1,000 ml @ 1,000 mls/hr Q1H PRN IV hypotension; Start 09/13/16 at 08:39; Stop 09/13/16 at 14:38; Status DC Diphenhydramine HCl (Benadryl) 25 mg 1X PRN PRN IV ITCHING; Start 09/13/16 at 08:45; Stop 09/14/16 at 08:44; Status DC Diphenhydramine HCl (Benadryl) 25 mg 1X PRN PRN IV ITCHING; Start 09/13/16 at 08:45; Stop 09/14/16 at 08:44; Status DC Sodium Chloride (Normal Saline Flush) 10 ml 1X PRN PRN IV AP catheter pack; Start 09/13/16 at 08:45; Stop 09/14/16 at 08:44; Status DC Sodium Chloride (Normal Saline Flush) 10 ml 1X PRN PRN IV EMERGENCY DEPARTMENT DIRECTOR catheter pack; Start 09/13/16 at 08:45; Stop 09/14/16 at 08:44; Status DC Labetalol HCl (Normodyne) 10 mg PRN Q1HR PRN IVP SBP > 180; Start 09/13/16 at 08:45; Stop 09/14/16 at 08:44; Status DC Info (PHARMACY MONITORING -- do not chart) 1 each PRN DAILY PRN MC SEE COMMENTS ; Start 09/13/16 at 08:45; Status UNV Info (PHARMACY MONITORING -- do not chart) 1 each PRN DAILY PRN MC SEE COMMENTS ; Start 09/13/16 at 08:45; Status UNV Pantoprazole Sodium 40 mg 40 mg DAILYAC IVP Last administered on 09/16/16 05: 57; Start 09/13/16 at 13:00; Stop 09/17/16 at 10:02; Status DC Sodium Chloride (Iv Sodium Chloride 0.9% 1000ml Bag) 1,000 ml @ 1,000 mls/hr Q1H PRN IV hypotension; Start 09/16/16 at 08:46; Stop 09/16/16 at 14:45; Status DC Diphenhydramine HCl (Benadryl) 25 mg 1X PRN PRN IV ITCHING; Start 09/16/16 at 09:00; Stop 09/17/16 at 08:59; Status DC Diphenhydramine HCl (Benadryl) 25 mg 1X PRN PRN IV ITCHING; Start 09/16/16 at 09:00; Stop 09/17/16 at 08:59; Status DC Sodium Chloride (Normal Saline Flush) 10 ml 1X PRN PRN IV AP catheter pack; Start 09/16/16 at 09:00; Stop 09/17/16 at 08:59; Status DC Sodium Chloride (Normal Saline Flush) 10 ml 1X PRN PRN IV EMERGENCY DEPARTMENT DIRECTOR catheter pack; Start 09/16/16 at 09:00; Stop 09/17/16 at 08:59; Status DC Info (PHARMACY MONITORING -- do not chart) 1 each PRN DAILY PRN MC SEE COMMENTS ; Start 09/16/16 at 09:00; Status UNV Info (PHARMACY MONITORING -- do not chart) 1 each PRN DAILY PRN MC SEE COMMENTS ; Start 09/16/16 at 09:00; Status UNV Darbepoetin Ernst (Aranesp) 60 mcg [id number] SQ Last administered on 09/23/16 20: 43; Start 09/16/16 at 21:00; Stop 09/26/16 at 11:05; Status DC Pantoprazole Sodium (Protonix) 40 mg DAILYAC PO Last administered on 10/02/16 12:43; Start 09/17/16 at 10:02 Fentanyl Citrate (Fentanyl 2ml Vial) 25 mcg PRN Q5MIN PRN IV MILD PAIN; Start 09/18/16 at 07:00; Stop 09/19/16 at 06:59; Status DC Fentanyl Citrate 50 mcg 50 mcg PRN Q5MIN PRN IV MODERATE PAIN; Start 09/18/16 at 07:00; Stop 09/19/16 at 06:59; Status DC Lactated Ringer's (Iv Lactated Ringers) 1,000 ml @ 0 mls/hr Q0M IV ; Start 09/18 at 07:00; Stop 09/18/16 at 18:59; Status DC Lidocaine HCl 2 ml 1X PRN PRN ID IV START; Start 09/18/16 at 07:00; Stop at 06:59; Status DC Prochlorperazine Edisylate (Compazine) 5 mg PACU PRN PRN IV NAUSEA; Start at 07:00; Stop 09/19/16 at 06:59; Status DC Dextrose 25 gm 25 gm STK-MED ONCE IV Last administered on 09/18/16 08:19; Start 09/18/16 at 08:19; Stop 09/18/16 at 08:20; Status DC Propofol (Diprivan) 20 ml @ As Directed STK-MED ONCE IV ; Start 09/18/16 at 11:13 ; Stop 09/18/16 at 11:14; Status DC Lidocaine HCl 5 ml 5 ml STK-MED ONCE .ROUTE ; Start 09/18/16 at 11:13; Stop at 11:14; Status DC Sodium Chloride 1,000 ml @ 100 mls/hr 1X ONCE IV Last administered on 11:29; Start 09/18/16 at 11:30; Stop 09/18/16 at 21:29; Status DC Sodium Chloride (Iv Sodium Chloride 0.9% 1000ml Bag) 1,000 ml @ 1,000 mls/hr Q1H PRN IV hypotension; Start 09/18/16 at 13:47; Stop 09/18/16 at 19:46; Status DC Acetaminophen (Tylenol) 500 mg 1X PRN PRN PO MILD PAIN / TEMP; Start 09/18/16 at 14:00; Stop 09/19/16 at 13:59; Status DC Diphenhydramine HCl (Benadryl) 25 mg 1X PRN PRN IV ITCHING; Start 09/18/16 at 14 :00; Stop 09/19/16 at 13:59; Status DC Diphenhydramine HCl (Benadryl) 25 mg 1X PRN PRN IV ITCHING; Start 09/18/16 at 14 :00; Stop 09/19/16 at 13:59; Status DC Labetalol HCl 10 mg 10 mg PRN Q1HR PRN IVP SBP > 180; Start 09/18/16 at 14:00; Stop 09/19/16 at 13:59; Status DC Sodium Chloride (Iv Sodium Chloride 0.9% 1000ml Bag) 1,000 ml @ 400 mls/hr Q2H30M PRN IV PATENCY; Start 09/18/16 at 13:47; Stop 09/19/16 at 01:46; Status DC Info 1 each 1 each PRN DAILY PRN MC SEE COMMENTS; Start 09/18/16 at 14:00; Status UNV Sodium Chloride 1,000 ml @ 1,000 mls/hr Q1H PRN IV hypotension; Start 09/20/16 at 07:30; Stop 09/20/16 at 18:00; Status DC Albumin Human (Albuminar) 200 ml @ 200 mls/hr 1X PRN PRN IV Hypotension; Start 09/20/16 at 07:45; Stop 09/20/16 at 14:00; Status DC Acetaminophen (Tylenol) 500 mg 1X PRN PRN PO MILD PAIN / TEMP; Start 09/20/16 at 07:45; Stop 09/20/16 at 18:00; Status DC Diphenhydramine HCl (Benadryl) 25 mg 1X PRN PRN IV ITCHING; Start 09/20/16 at 07 :45; Stop 09/20/16 at 18:00; Status DC Diphenhydramine HCl (Benadryl) 25 mg 1X PRN PRN IV ITCHING; Start 09/20/16 at 07 :45; Stop 09/20/16 at 18:00; Status DC Sodium Chloride (Normal Saline Flush) 10 ml 1X PRN PRN IV AP catheter pack; Start 09/20/16 at 07:45; Stop 09/20/16 at 18:00; Status DC Sodium Chloride (Normal Saline Flush) 10 ml 1X PRN PRN IV EMERGENCY DEPARTMENT DIRECTOR catheter pack; Start 09/20/16 at 07:45; Stop 09/20/16 at 18:00; Status DC Labetalol HCl 10 mg 10 mg PRN Q1HR PRN IVP SBP > 180; Start 09/20/16 at 07:45; Stop 09/20/16 at 18:00; Status DC Sodium Chloride (Iv Sodium Chloride 0.9% 1000ml Bag) 1,000 ml @ 400 mls/hr Q2H30M PRN IV PATENCY; Start 09/20/16 at 07:45; Stop 09/20/16 at 18:00; Status DC Info (PHARMACY MONITORING -- do not chart) 1 each PRN DAILY PRN MC SEE COMMENTS ; Start 09/20/16 at 07:45; Status UNV Warfarin Sodium (Coumadin Per Pharmacy) 1 each PRN DAILY PRN MC SEE COMMENTS Last administered on 10/01/16 14:03; Start 09/20/16 at 14:30 Warfarin Sodium (Coumadin) 2 mg 1X WARF ONCE PO Last administered on 09/20/16 17:27; Start 09/20/16 at 17:14; Stop 09/20/16 at 17:15; Status DC Methylprednisolone Acetate (Depo-Medrol 80mg Vial) 80 mg 1X ONCE IM ; Start 09/20/16 at 17:30; Stop 09/20/16 at 17:33; Status DC Methylprednisolone Acetate (Depo-Medrol 40mg Vial) 40 mg 1X ONCE IM ; Start 09/20/16 at 17:30; Stop 09/20/16 at 17:33; Status DC Bupivacaine HCl (Sensorcaine-Mpf 0.25%) 10 ml 1X ONCE IJ ; Start 09/20/16 at 17: 30; Stop 09/20/16 at 17:33; Status DC Warfarin Sodium (Coumadin) 2 mg 1X WARF ONCE PO Last administered on 09/21/16 17:14; Start 09/21/16 at 16:00; Stop 09/21/16 at 16:01; Status DC Warfarin Sodium 3 mg 3 mg 1X WARF ONCE PO Last administered on 09/22/16 17:28 ; Start 09/22/16 at 16:00; Stop 09/22/16 at 16:01; Status DC Sodium Chloride (Iv Sodium Chloride 0.9% 1000ml Bag) 1,000 ml @ 1,000 mls/hr Q1H PRN IV hypotension; Start 09/23/16 at 14:18; Stop 09/23/16 at 21:00; Status DC Sodium Chloride (Normal Saline Flush) 10 ml 1X PRN PRN IV AP catheter pack; Start 09/23/16 at 14:30; Stop 09/23/16 at 21:00; Status DC Sodium Chloride (Normal Saline Flush) 10 ml 1X PRN PRN IV [employer] catheter pack; Start 09/23/16 at 14:30; Stop 09/23/16 at 21:00; Status DC Info (PHARMACY MONITORING -- do not chart) 1 each PRN DAILY PRN MC SEE COMMENTS ; Start 09/23/16 at 14:30; Status UNV Info (PHARMACY MONITORING -- do not chart) 1 each PRN DAILY PRN MC SEE COMMENTS ; Start 09/23/16 at 14:30; Status UNV Warfarin Sodium (Coumadin) 3 mg 1X ONCE PO Last administered on 09/23/16 17:34 ; Start 09/23/16 at 17:00; Stop 09/23/16 at 17:01; Status DC Lidocaine/Sodium Bicarbonate (Buffered Lidocaine 1%) 20 ml STK-MED ONCE IJ ; Start 09/24/16 at 14:59; Stop 09/24/16 at 15:00; Status DC Fentanyl Citrate (Fentanyl 2ml Vial) 100 mcg STK-MED ONCE .ROUTE ; Start at 15:05; Stop 09/24/16 at 15:06; Status DC Midazolam HCl (Versed) 2 mg STK-MED ONCE .ROUTE ; Start 09/24/16 at 15:05; Stop 09/24/16 at 15:06; Status DC Lidocaine/Sodium Bicarbonate (Buffered Lidocaine 1%) 20 ml 1X ONCE IJ Last administered on 09/24/16 16:13; Start 09/24/16 at 16:15; Stop 09/24/16 at 16:16; Status DC Midazolam HCl (Versed) 2 mg 1X ONCE IV Last administered on 09/24/16 16:14; Start 09/24/16 at 16:15; Stop 09/24/16 at 16:16; Status DC Fentanyl Citrate (Fentanyl 2ml Vial) 100 mcg 1X ONCE IV Last administered on 16:15; Start 09/24/16 at 16:15; Stop 09/24/16 at 16:16; Status DC Warfarin Sodium 2 mg 2 mg 1X ONCE PO Last administered on 09/24/16 16:35; Start 09/24/16 at 17:00; Stop 09/24/16 at 17:01; Status DC Sodium Chloride 1,000 ml @ 1,000 mls/hr Q1H PRN IV hypotension; Start 09/25/16 at 08:38; Stop 09/25/16 at 14:37; Status DC Albumin Human (Albuminar) 200 ml @ 200 mls/hr 1X PRN PRN IV Hypotension; Start 09/25/16 at 08:45; Stop 09/25/16 at 14:44; Status DC Acetaminophen (Tylenol) 500 mg 1X PRN PRN PO MILD PAIN / TEMP; Start 09/25/16 at 08:45; Stop 09/26/16 at 08:44; Status DC Diphenhydramine HCl (Benadryl) 25 mg 1X PRN PRN IV ITCHING; Start 09/25/16 at 08 :45; Stop 09/26/16 at 08:44; Status DC Info (PHARMACY MONITORING -- do not chart) 1 each PRN DAILY PRN MC SEE COMMENTS ; Start 09/25/16 at 08:45; Status UNV Vancomycin HCl 1 each 1 each PRN DAILY PRN MC SEE COMMENTS Last administered on 10/01/16 15:08; Start 09/25/16 at 09:15 Piperacillin Sod/ Tazobactam Sod 2.25 gm/Sodium Chloride 50 ml @ 100 mls/hr Q6HRS IV Last administered on 10/02/16 05:20; Start 09/25/16 at 10:00; Stop at 08:30; Status DC Vancomycin HCl/ Sodium Chloride (Iv Sodium Chloride 0.9% 500ml Bag) 500 ml @ 250 mls/hr ONCE ONCE IV Last administered on 09/25/16 13:32; Start 09/25/16 at 10:00; Stop 09/25/16 at 11:59; Status DC Warfarin Sodium (Coumadin) 4 mg 1X WARF ONCE PO ; Start 09/25/16 at 16:00; Stop 09/25/16 at 16:00; Status DC Warfarin Sodium 3 mg 3 mg 1X WARF ONCE PO Last administered on 09/25/16 16:00 ; Start 09/25/16 at 16:00; Stop 09/25/16 at 16:01; Status DC Magnesium Sulfate/ Dextrose (Magnesium Sulfate PREMIX 2GM) 50 ml @ 25 mls/hr PRN DAILY PRN IV for Mag < 1.7 on am labs Last administered on 09/28/16 18:18 ; Start 09/26/16 at 11:15 Darbepoetin Ernst (Aranesp) 100 mcg Th SQ Last administered on 09/26/16 20:40; Start 09/26/16 at 21:00 Amlodipine Besylate (Norvasc) 2.5 mg DAILY PO Last administered on 09/26/16 12: 21; Start 09/26/16 at 11:00; Stop 09/26/16 at 14:02; Status DC Amlodipine Besylate (Norvasc) 5 mg DAILY PO Last administered on 10/02/16 12: 43; Start 09/27/16 at 09:00 Warfarin Sodium (Coumadin) 5 mg 1X WARF ONCE PO Last administered on 09/26/16 16:15; Start 09/26/16 at 16:00; Stop 09/26/16 at 16:01; Status DC Vancomycin HCl 1 each 1 each 1X ONCE MC ; Start 09/27/16 at 16:00; Stop at 16:01; Status DC Sodium Chloride 1,000 ml @ 1,000 mls/hr Q1H PRN IV hypotension; Start 09/27/16 at 09:47; Stop 09/27/16 at 15:46; Status DC Albumin Human (Albuminar) 200 ml @ 200 mls/hr 1X PRN PRN IV Hypotension; Start 09/27/16 at 10:00; Stop 09/27/16 at 15:59; Status DC Acetaminophen (Tylenol) 500 mg 1X PRN PRN PO MILD PAIN / TEMP; Start 09/27/16 at 10:00; Stop 09/28/16 at 09:59; Status DC Diphenhydramine HCl (Benadryl) 25 mg 1X PRN PRN IV ITCHING; Start 09/27/16 at 10:00; Stop 09/28/16 at 09:59; Status DC Diphenhydramine HCl (Benadryl) 25 mg 1X PRN PRN IV ITCHING; Start 09/27/16 at 10:00; Stop 09/28/16 at 09:59; Status DC Labetalol HCl 10 mg 10 mg PRN Q1HR PRN IVP SBP > 180; Start 09/27/16 at 10:00; Stop 09/28/16 at 09:59; Status DC Sodium Chloride (Iv Sodium Chloride 0.9% 1000ml Bag) 1,000 ml @ 400 mls/hr Q2H30M PRN IV PATENCY; Start 09/27/16 at 09:47; Stop 09/27/16 at 21:46; Status DC Info (PHARMACY MONITORING -- do not chart) 1 each PRN DAILY PRN MC SEE COMMENTS ; Start 09/27/16 at 10:00; Status UNV Warfarin Sodium 5 mg 5 mg 1X WARF ONCE PO Last administered on 09/27/16 17:11 ; Start 09/27/16 at 16:00; Stop 09/27/16 at 16:01; Status DC Vancomycin HCl/ Sodium Chloride (Iv Sodium Chloride 0.9% 250ml) 250 ml @ 250 mls/hr ONCE ONCE IV Last administered on 09/27/16 21:15; Start 09/27/16 at 20 :10; Stop 09/27/16 at 21:09; Status DC Potassium Chloride (Klor-Con) 40 meq 1X ONCE PO Last administered on 12:04; Start 09/28/16 at 12:30; Stop 09/28/16 at 12:31; Status DC Warfarin Sodium (Coumadin) 4 mg 1X WARF ONCE PO Last administered on 15:32; Start 09/28/16 at 16:00; Stop 09/28/16 at 16:01; Status DC Warfarin Sodium 4 mg 4 mg 1X WARF ONCE PO Last administered on 09/29/16 17:06 ; Start 09/29/16 at 16:00; Stop 09/29/16 at 16:01; Status DC Vancomycin HCl 500 mg/Sodium Chloride 100 ml @ 100 mls/hr QMWF IV Last administered on 09/30/16 15:47; Start 09/30/16 at 16:00 Sodium Chloride (Iv Sodium Chloride 0.9% 1000ml Bag) 1,000 ml @ 1,000 mls/hr Q1H PRN IV hypotension; Start 09/30/16 at 08:00; Stop 09/30/16 at 13:59; Status DC Acetaminophen (Tylenol) 500 mg 1X PRN PRN PO MILD PAIN / TEMP; Start 09/30/16 at 09:00; Stop 10/01/16 at 08:59; Status DC Diphenhydramine HCl (Benadryl) 25 mg 1X PRN PRN IV ITCHING; Start 09/30/16 at 09:00; Stop 10/01/16 at 08:59; Status DC Diphenhydramine HCl 25 mg 25 mg 1X PRN PRN IV ITCHING; Start 09/30/16 at 09:00 ; Stop 10/01/16 at 08:59; Status DC Sodium Chloride (Iv Sodium Chloride 0.9% 1000ml Bag) 1,000 ml @ 400 mls/hr Q2H30M PRN IV PATENCY; Start 09/30/16 at 08:00; Stop 09/30/16 at 19:59; Status DC Info (PHARMACY MONITORING -- do not chart) 1 each PRN DAILY PRN MC SEE COMMENTS ; Start 09/30/16 at 09:00 Warfarin Sodium (Coumadin) 4 mg 1X WARF ONCE PO Last administered on 17:12; Start 09/30/16 at 16:00; Stop 09/30/16 at 16:01; Status DC Warfarin Sodium 4 mg 4 mg 1X WARF ONCE PO Last administered on 10/01/16 17:12 ; Start 10/01/16 at 16:00; Stop 10/01/16 at 16:01; Status DC Sodium Chloride 1,000 ml @ 1,000 mls/hr Q1H PRN IV hypotension; Start 10/02/16 at 07:28; Stop 10/02/16 at 13:27 Albumin Human (Albuminar) 200 ml @ 200 mls/hr 1X PRN PRN IV Hypotension; Start 10/02/16 at 07:30; Stop 10/02/16 at 13:29 Acetaminophen (Tylenol) 500 mg 1X PRN PRN PO MILD PAIN / TEMP; Start 10/02/16 at 07:30; Stop 10/03/16 at 07:29 Diphenhydramine HCl (Benadryl) 25 mg 1X PRN PRN IV ITCHING; Start 10/02/16 at 07:30; Stop 10/03/16 at 07:29 Diphenhydramine HCl (Benadryl) 25 mg 1X PRN PRN IV ITCHING; Start 10/02/16 at 07:30; Stop 10/03/16 at 07:29 Labetalol HCl 10 mg 10 mg PRN Q1HR PRN IVP SBP > 180; Start 10/02/16 at 07:30; Stop 10/03/16 at 07:29 Sodium Chloride (Iv Sodium Chloride 0.9% 1000ml Bag) 1,000 ml @ 400 mls/hr Q2H30M PRN IV PATENCY; Start 10/02/16 at 07:28; Stop 10/02/16 at 19:27 Info (PHARMACY MONITORING -- do not chart) 1 each PRN DAILY PRN MC SEE COMMENTS ; Start 10/02/16 at 07:30; Status UNV Gentamicin Sulfate 1 each 1 each PRN DAILY PRN MC SEE COMMENTS; Start 10/02/16 at 08:30 Gentamicin Sulfate 80 mg/ Sodium Chloride 102 ml @ 204 mls/hr 1X ONCE IV ; Start 10/02/16 at 09:30; Stop 10/02/16 at 09:59; Status Cancel Gentamicin Sulfate/Sodium Chloride (Iv Sodium Chloride 0.9% 100ml) 103.2 ml @ 206.4 mls/ hr 1X ONCE IV ; Start 10/02/16 at 17:00; Stop 10/02/16 at 17:29 Active Scripts Active Reported [Mylanta] Tylenol (Acetaminophen) 325 Mg Tablet 1 Tab PO PRN Q4HRS Fleet Enema (Na Phos,M-B/Na Phos,Di-Ba) 133 Ml Enema 1 Each RC ONCE Dulcolax (Bisacodyl) 10 Mg Supp.rect 10 Mg RC PRN DAILY PRN Zofran Odt (Ondansetron) 8 Mg Tab.rapdis 1 Tab PO PRN Q8HRS PRN Nitrostat (Nitroglycerin) 0.4 Mg Tab.subl 1 Tab SL UD Cyclobenzaprine Hcl 10 Mg Tablet 1 Tab PO TID Zepatier 50-100 mg Tablet (Elbasvir/Grazoprevir) 1 Each Tablet 1 Each PO [PhosLo] Coreg (Carvedilol) 25 Mg Tablet 1 Tab PO BID Aspirin 81 Mg Tab.chew 1 Tab PO DAILY Allopurinol 100 Mg Tablet 1 Tab PO DAILY Ventolin Hfa Inhaler (Albuterol Sulfate) 18 Gm Hfa.aer.ad 2 Puff INH Q4HRS Nephplex Rx Tablet (Vit B Cmplx No3/Fa/C/Biot/Zinc) 1 Each Tablet 1 Each PO Senokot (Sennosides) 8.6 Mg Tablet 1 Tab PO BID Oxycontin (Oxycodone HCl) 10 Mg Tab.er.12h 10 Mg PO BID Glycolax (Polyethylene Glycol 3350) 119 Gm Powder 17 Gm PO UD Percocet 10-325 Mg Tablet (Oxycodone/Acetaminophen) 1 Each Tablet 1 Tab PO Q4- 6HRS Vitamin D3 (Cholecalciferol (Vitamin D3)) 1,000 Unit Tablet 1 Tab PO DAILY Advair 250-50 Diskus (Fluticasone/Salmeterol) 1 Each Disk.w.dev 1 Puff IH BID Ipratropium [place] 0.2 Mg/1 Ml Solution 1 Vial NEB QID Lidoderm (Lidocaine) 700 Mg Adh..patch 1 Patch TP DAILY Nortriptyline Hcl 25 Mg Capsule 1 Cap PO QHS Warfarin Sodium 2 Mg Tablet 1.5 Mg PO DAILY Gabapentin 300 Mg Capsule 300 Mg PO TID Zoloft (Sertraline Hcl) 100 Mg Tablet 1 Tab PO DAILY Vitals/I & O Vital Sign - Last 24 Hours 10/01/16 10/01/16 10/01/16 10/01/16 13:40 15:06 15:18 17:12 Temp 97.7 97.7 Pulse 79 Resp 18 B/P 155/83 Pulse Ox 97 97 O2 Delivery Room Air Room Air Room Air O2 Flow Rate 97.0 10/01/16 10/01/16 10/01/16 10/01/16 17:13 19:00 19:26 20:00 Temp 97.7 97.7 Pulse 85 115 Resp 20 B/P 169/88 135/70 Pulse Ox 96 O2 Delivery Room Air Room Air 10/01/16 10/01/16 10/01/16 10/01/16 20:22 20:37 20:38 22:31 Temp 97.8 97.8 Pulse 75 Resp 20 19 B/P 163/86 Pulse Ox 95 95 94 O2 Delivery Room Air Room Air Room Air Room Air 10/02/16 10/02/16 10/02/16 10/02/16 00:00 00:45 05:21 06:22 Resp 18 18 20 18 O2 Delivery Room Air Room Air Room Air Room Air 10/02/16 10/02/16 10/02/16 10/02/16 06:47 07:00 08:10 10:45 Temp 97.3 97.3 Pulse 85 73 Resp 20 B/P 174/85 162/87 Pulse Ox 94 95 O2 Delivery Room Air Room Air Room Air 10/02/16 10/02/16 10/02/16 10/02/16 12:43 12:44 12:44 12:50 Pulse 101 101 B/P 162/84 162/84 O2 Delivery Room Air Room Air Intake and Output 10/01/16 10/01/16 10/02/16 15:00 23:00 07:00 Intake Total 480 ml 1020 ml 300 ml Balance 480 ml 1020 ml 300 ml TANA ANDREW III DO Oct 02, 2016 13:29
[2016-10-02] MEDS: VANCOMYCIN PER PHARMACY MC PRN (13:50)
[2016-10-02 14:41] VITALS: BP 161/68
[2016-10-02] MEDS ORDERED: NORMAL SALINE IV ONE (15:00)
[2016-10-02] MEDS ORDERED: GENTAMICIN SULFATE IV ONE (15:00)
[2016-10-02] MEDS: VANCOMYCIN 500 MG in IV NORMAL SALINE 100ML 100 ML IV SCH (15:03)
[2016-10-02] MEDS ORDERED: WARFARIN 4 MG TABLET. PO SCH (16:00)
[2016-10-04] MEDS ORDERED: GENTAMICIN RANDOM LEVEL. MC ONE (05:00)
== END 2016-10-02 17:30 | DRG 477 ==
LOC: ER 18:07 → 1 WEST ICU 19:17 → 5 SOUTH 09-10 13:40 → 1 WEST ICU 09-12 15:19 → 5 SOUTH 09-17 15:45
PROVIDERS: ADMIT Internal Medicine; ATTEND Internal Medicine
PROC: 30233L1 Transfusion of Nonautologous Fresh Plasma into Peripheral Vein, Percutaneous Approach (ICD-10-PCS; principal; 2016-09-10)
PROC: 30233K1 Transfusion of Nonautologous Frozen Plasma into Peripheral Vein, Percutaneous Approach (ICD-10-PCS; 2016-09-10)
PROC: 30233N1 Transfusion of Nonautologous Red Blood Cells into Peripheral Vein, Percutaneous Approach (ICD-10-PCS; 2016-09-13)
PROC: 0DJ08ZZ Inspection of Upper Intestinal Tract, Via Natural or Artificial Opening Endoscopic (ICD-10-PCS; 2016-09-18)
PROC: 0Q903ZX Drainage of Lumbar Vertebra, Percutaneous Approach, Diagnostic (ICD-10-PCS; 2016-09-24)
PROC: 0QB03ZX Excision of Lumbar Vertebra, Percutaneous Approach, Diagnostic (ICD-10-PCS; 2016-09-24)
PROC: 5A1D60Z (ICD-10-PCS; 2016-09-27)
DX: M48.50XA Collapsed vertebra, not elsewhere classified, site unspecified, initial encounter for fracture (principal); E43 Unspecified severe protein-calorie malnutrition; N18.6 End stage renal disease; K92.2 Gastrointestinal hemorrhage, unspecified; D62 Acute posthemorrhagic anemia; I13.0 Hypertensive heart and chronic kidney disease with heart failure and stage 1 through stage 4 chronic kidney disease, or unspecified chronic kidney disease; B19.20 Unspecified viral hepatitis C without hepatic coma; D50.9 Iron deficiency anemia, unspecified; D63.8 Anemia in other chronic diseases classified elsewhere; E11.22 Type 2 diabetes mellitus with diabetic chronic kidney disease; E66.01 Morbid (severe) obesity due to excess calories; E83.42 Hypomagnesemia; G89.29 Other chronic pain; I48.2 Chronic atrial fibrillation; I50.9 Heart failure, unspecified; M47.816 Spondylosis without myelopathy or radiculopathy, lumbar region; M48.00 Spinal stenosis, site unspecified; M51.36 Other intervertebral disc degeneration, lumbar region; N28.1 Cyst of kidney, acquired; R29.6 Repeated falls; R79.1 Abnormal coagulation profile; J44.9 Chronic obstructive pulmonary disease, unspecified; J45.909 Unspecified asthma, uncomplicated; K21.9 Gastro-esophageal reflux disease without esophagitis; K29.70 Gastritis, unspecified, without bleeding; K43.9 Ventral hernia without obstruction or gangrene; K74.60 Unspecified cirrhosis of liver; M10.9 Gout, unspecified; M17.0 Bilateral primary osteoarthritis of knee; M19.011 Primary osteoarthritis, right shoulder; T45.515A Adverse effect of anticoagulants, initial encounter; Z79.01 Long term (current) use of anticoagulants; Z79.899 Other long term (current) drug therapy; Z86.718 Personal history of other venous thrombosis and embolism; Z88.5 Allergy status to narcotic agent; Z90.10 Acquired absence of unspecified breast and nipple; Z86.73 Personal history of transient ischemic attack (TIA), and cerebral infarction without residual deficits; Z91.041 Radiographic dye allergy status; Z68.33 Body mass index [BMI] 33.0-33.9, adult; Z88.1 Allergy status to other antibiotic agents; Z90.49 Acquired absence of other specified parts of digestive tract; Z99.2 Dependence on renal dialysis
CPT/HCPCS: 36415; 36569; 62267; 71010; 72100; 72148; 74000; 76770; 77012; 80048; 80053; 80069; 80202; 82140; 82274; 82947; 83735; 85007; 85014; 85018; 85027; 85610; 85651; 86850; 86900; 86901; 86920; 86927; 87040; 87071; 87075; 87102; 87116; 87340; 87341; 87641; 93931; 94250; 94640; 94760; 96365; 96375; 97004; C1892; C9113; J0881; J1170; J1580; J2060; J2250; J2405; J2543; J2704; J3010; J3370; J3430; J3490; J7030; J7040; J7042; J7050; J7060; J7620; P9016; P9017; Q0162; 97110; 97530; 97535; 99285-25